=== PATIENT | male | born 1955 | race Caucasian/White ===

== ENCOUNTER 2016-04-25 08:22 | Emergency (ER) | payer OTHER ==
[~2016-04-25] VITALS: Ht 182.9 cm; Wt 120.2 kg
[~2016-04-25 08:22] MED LIST: METH4TAB PO
--- OUTSIDE RECORDS SUMMARY | 2016-04-25 08:31 | XMS REPORT ---
Author VICK Peguero [facility] [place] eClinicalWorks Address Unknown Phone Unavailable Care Team Providers Care Proposal Manager Writer Name Role Phone VICK FRANK CP Unavailable Allergies No Known Allergies Problems Problem Type Condition Code Onset Dates Condition Status Problem Mixed hyperlipidemia E78.2 Active Problem Obstructive sleep apnea (adult) (pediatric) 327.23 Active Problem Arthritis M19.90 Active Medications Medication Code System Code Instructions Start Date End Date Status Dosage Ibuprofen [facility] [id number] 800 MG Orally Three times a day, pc 1 tablet Results No Known Results Summary Purpose eClinicalWorks Submission
[2016-04-25] MEDS ORDERED: IBUP-1780 PO (08:57)
[2016-04-25] MEDS ORDERED: NS IV 1000 ML 1,000 ML IV ONE (09:19)
[2016-04-25 09:25] LABS: BASOPHILS % (AUTO) 0 % (0-10); EOSINOPHILS # (AUTO) 0.1 10^3/uL (0.0-0.3); EOSINOPHILS % (AUTO) 1 % (0-10); LYMPHOCYTES # (AUTO) 0.8 X 10^3 (1.0-4.0); LYMPHOCYTES % (AUTO) 8 % (12-44); MEAN CORPUSCULAR HEMOGLOBIN 30 PG (25-34); MEAN CORPUSCULAR HGB CONC 34 G/DL (32-36); MEAN CORPUSCULAR VOLUME 89 FL (80-99); MEAN PLATELET VOLUME 9.5 FL (7.4-10.4); MONOCYTES # (AUTO) 0.9 X 10^3 (0.0-1.0); MONOCYTES % (AUTO) 8 % (0-12); NEUTROPHILS # (AUTO) 9.2 X 10^3 (1.8-7.8); NEUTROPHILS % (AUTO) 84 % (42-75); PLATELET COUNT 283 10^3/uL (130-400); RED BLOOD COUNT 5.13 10^6/uL (4.35-5.85)
--- NOTE | 2016-04-25 09:27 | Diagnostic Imaging Report ---
INDICATION: Fever, neck pain, fall two days ago. FINDINGS: There is no pneumothorax. No findings of hemothorax. There is no pneumonia. There is no failure. IMPRESSION: No acute appearing abnormality. Dictated by: Dictated on workstation # [id number]
[2016-04-25 09:30] LABS: INR 1.1 (0.8-1.4); PROTHROMBIN TIME PATIENT 13.5 SEC (12.2-14.7)
[2016-04-25] MEDS ORDERED: ONDANSETRON 4 MG/2 ML (SDV) Z0FRAN IVP ONE (09:30)
[2016-04-25] MEDS ORDERED: fentaNYL INJECTION 100 MCG/2 ML AMP IVP ONE ×2 (09:30→10:30)
[2016-04-25 09:38] LABS: ALANINE AMINOTRANSFERASE 25 U/L (0-55); ALBUMIN 4.2 G/DL (3.2-4.5); ANION GAP 11 MMOL/L (5-14); ASPARTATE AMINO TRANSFERASE 18 U/L (5-34); BLOOD UREA NITROGEN 10 MG/DL (7-18); BUN/CREATININE RATIO 11; CALCIUM 9.6 MG/DL (8.5-10.1); CARBON DIOXIDE 24 MMOL/L (21-32); CHLORIDE 101 MMOL/L (98-107); CREATININE SERUM 0.87 MG/DL (0.60-1.30); GFR ESTIMATED > 60; GLUCOSE 121 MG/DL (70-105); POTASSIUM 4.2 MMOL/L (3.6-5.0); SODIUM 136 MMOL/L (135-145); TOTAL PROTEIN 7.4 G/DL (6.4-8.2); hs C REACTIVE PROTEIN 6.18 MG/DL (0.00-0.50)
[2016-04-25] MEDS ORDERED: ACETAMINOPHEN 500 MG TAB (TYLENOL) PO ONE (09:45)
--- NOTE | 2016-04-25 10:20 | Diagnostic Imaging Report ---
INDICATION: Severe headache, dental pain. COMPARISON: There are no prior studies available for comparison. PROCEDURE: CT head and maxillofacial without contrast. TECHNIQUE: Multiple contiguous axial images were obtained through the head and facial bones without the use of intravenous contrast. Sagittal and coronal reconstructed images were also obtained. FINDINGS: CT MAXILLOFACIAL: The orbital rims, nasal bones, zygomatic arches, and mandible are intact. There are multiple dental caries. There is no mass or abscess identified, however. The soft tissues are unremarkable. There is mild mucosal thickening in the ethmoid sinuses and the floor of each maxillary antrum. The sinuses are otherwise clear. The nasal septum is deviated to the right. IMPRESSION: 1. There is no evidence for an acute bony abnormality. 2. There are multiple dental caries. There is no mass or abscess visualized. 3. There is mild bilateral ethmoid and maxillary sinusitis. 4. The results were discussed with Dr. Maldonado in the ER. CT HEAD: There is no mass, shift of the midline, or hemorrhage to suggest an acute intracranial abnormality. The ventricles are not abnormally dilated. There is mild cortical atrophy present. The degree of atrophy is consistent with the patient's age. The bone windows show no evidence for a fracture or for a destructive lesion. The orbits are symmetrical and within normal limits. The sinuses, where visualized, are generally clear. IMPRESSION: There is no evidence for an acute intracranial abnormality. Dictated by: Dictated on workstation # [id number]
[2016-04-25 10:52] LABS: BILIRUBIN,URINE NEGATIVE (NEGATIVE); KETONES,URINE 1+ (NEGATIVE); LEUKOCYTE ESTERASE ,URINE NEGATIVE (NEGATIVE); NITRITE,URINE NEGATIVE (NEGATIVE); PH,URINE 6 (5-9); PROTEIN,URINE NEGATIVE (NEGATIVE); UROBILINOGEN,URINE NORMAL (NORMAL)
--- NOTE | 2016-04-25 11:30 | ED General ---
General Chief Complaint: Head/Cervical Problems Stated Complaint: DENTAL/FACIAL PAIN HEADACHE FEVER Nursing Triage Note: AMBULATED TO ROOM 06 WITH COMPLAINTS OF HEADACHE, HIGH FEVER, AND NECK PAIN OFF AND ON FOR TWO DAYS. REPORTS HIGHEST FEVER OF 106. MASK IMMEDIATLEY APPLIED TO PT. PT FELL TWO DAYS AGO. UNKNOWN IF HE HIT HIS HEAD. DENIES LOC. COMPLAINS OF RIGHT SHOULDER PAIN DUE TO THE FALL. Nursing Sepsis Screen: No Definite Risk Source of Information: Patient Exam Limitations: No Limitations History of Present Illness Time Seen by Provider: 09:00 Initial Comments This 60-year-old gentleman presents to the emergency room with acute illness that includes fever, intense headache and left-sided facial pain, temperature reportedly up to 106 at home, nausea and urinary frequency. He reports having difficulty eating and drinking due to his illness. Temperature here is up to 100.7. Patient has significant dental decay with gingival irritation that he believes may be a source of his illness. He had some unrelated falls recently with exacerbation of chronic right knee and shoulder pain. Allergies and Home Medications Allergies Coded Allergies: clindamycin (Verified Allergy, Unknown, 04/25/16) Uncoded Allergies: CEYANE PEPPER (Allergy, Unknown, 04/25/16) ENDOMETHICIN (Allergy, Unknown, 04/25/16) Home Medications Ibuprofen 800 Mg Tablet 800 MG PO Q8H PRN PRN PAIN (Reported) Constitutional: see HPI EENTM: see HPI Respiratory: no symptoms reported Cardiovascular: no symptoms reported Gastrointestinal: see HPI Genitourinary: see HPI Musculoskeletal: no symptoms reported Skin: no symptoms reported Psychiatric/Neurological: See HPI Hematologic/Lymphatic: No Symptoms Reported Past Aorqcfz-Thfokt-Vaukci Hx Patient Social History Recent Foreign Travel: No Contact w/Someone Who Travel: No Recent Infectious Disease Expo: No Recent Hopitalizations: No Surgeries HX Surgeries: Yes Surgeries: Bladder Surgery Respiratory Hx Respiratory Disorders: Yes Respiratory Disorders: Pneumonia, Sleep Apnea Cardiovascular Hx Cardiac Disorders: No Neurological Hx Neurological Disorders: No Reproductive System Hx Reproductive Disorders: No Sexually Transmitted Disease: No Genitourinary Hx Genitourinary Disorders: Yes (adm.problem) Gastrointestinal Hx Gastrointestinal Disorders: No Musculoskeletal Hx Musculoskeletal Disorders: Yes Musculoskeletal Disorders: Arthritis Endocrine Hx Endocrine Disorders: No HEENT HX ENT Disorders: No Cancer Hx Cancer: Yes Cancer: Bladder Psychosocial Hx Psychiatric Problems: No Blood Transfusions Hx Blood Disorders: No Physical Exam-Suspected Sepsis Physical Exam Vital Signs Vital Sign - Last 12Hours 04/25/16 04/25/16 08:50 09:39 Temp 100.0 Pulse 91 Resp 18 B/P 155/84 Pulse Ox 91 O2 Delivery Nasal Cannula O2 Flow Rate 2 Capillary Refill : Less Than 3 Seconds Blood Pressure Mean: 107 General Appearance: WD/WN Mild Distress Obese HEENT: PERRL/EOMI TMs Normal Normal ENT Inspection Pharynx Normal Other ( gingival inflammation on the left upper gums without overt abscess) Neck: Full Range of Motion Normal Inspection Other (no nuchal rigidity) Respiratory: Lungs Clear Normal Breath Sounds No Accessory Muscle Use No Respiratory Distress Cardiovascular: Regular Rate, Rhythm No Edema No Murmur Normal Peripheral Pulses Gastrointestinal: Normal Bowel Sounds Non Tender Soft Extremity: Normal Capillary Refill Normal Inspection Neurologic/Psychiatric: Alert Oriented x3 No Motor/Sensory Deficits Normal Mood/Affect automatic lathe setter II-XII Norm as Tested Skin: normal color warm/dry Progress/Results/Core Measures Suspected Sepsis Recent Fever Within 48 Hours: Yes Infection Criteria Present: None New/Unexplained Altered Menta: No Sepsis Screen: No Definite Risk Sepsis Diagnosis: SIRS Temperature:100.7 Pulse: 91 Respiratory Rate: 18 Laboratory Tests 04/25/16 09:00: White Blood Count 11.0 Blood Pressure 155 /84 Mean: 107 Laboratory Tests 04/25/16 09:00: Creatinine 0.87, INR Comment 1.1, Platelet Count 283, Total Bilirubin 1.0 Results/Orders Lab Results Laboratory Tests Test 04/25/16 09:00 04/25/16 10:40 Range/Units Activated Partial Thromboplast Time 30 24-35 SEC Alanine Aminotransferase (ALT/SGPT) 25 0-55 U/L Albumin 4.2 3.2-4.5 G/DL Alkaline Phosphatase 84 40-136 U/L Anion Gap 11 5-14 MMOL/L Aspartate Amino Transf (AST/SGOT) 18 5-34 U/L BUN/Creatinine Ratio 11 Basophils # (Auto) 0.0 0.0-0.1 10^3/uL Basophils (%) (Auto) 0 0-10 % Blood Urea Nitrogen 10 7-18 MG/DL C-Reactive Protein High Sensitivity 6.18 H 0.00-0.50 MG/DL Calcium Level 9.6 8.5-10.1 MG/DL Carbon Dioxide Level 24 21-32 MMOL/L Chloride Level 101 98-107 MMOL/L Creatinine 0.87 0.60-1.30 MG/DL Eosinophils # (Auto) 0.1 0.0-0.3 10^3/uL Eosinophils (%) (Auto) 1 0-10 % Estimat Glomerular Filtration Rate > 60 Glucose Level 121 H 70-105 MG/DL Hematocrit 46 40-54 % Hemoglobin 15.4 13.3-17.7 G/DL INR Comment 1.1 0.8-1.4 Lactic Acid Level 0.76 0.50-2.00 MMOL/L Lymphocytes # (Auto) 0.8 L 1.0-4.0 X 10^3 Lymphocytes (%) (Auto) 8 L 12-44 % Mean Corpuscular Hemoglobin 30 25-34 PG Mean Corpuscular Hemoglobin Concent 34 32-36 G/DL Mean Corpuscular Volume 89 80-99 FL Mean Platelet Volume 9.5 7.4-10.4 FL Monocytes # (Auto) 0.9 0.0-1.0 X 10^3 Monocytes (%) (Auto) 8 0-12 % Neutrophils # (Auto) 9.2 H 1.8-7.8 X 10^3 Neutrophils (%) (Auto) 84 H 42-75 % Platelet Count 283 130-400 10^3/uL Potassium Level 4.2 3.6-5.0 MMOL/L Prothrombin Time 13.5 12.2-14.7 SEC Red Blood Count 5.13 4.35-5.85 10^6/uL Red Cell Distribution Width 13.0 10.0-14.5 % Sodium Level 136 135-145 MMOL/L Total Bilirubin 1.0 0.1-1.0 MG/DL Total Protein 7.4 6.4-8.2 G/DL White Blood Count 11.0 4.3-11.0 10^3/uL Urine Bacteria NEGATIVE /HPF Urine Bilirubin NEGATIVE NEGATIVE Urine Casts NONE /LPF Urine Clarity CLEAR Urine Color YELLOW Urine Crystals NONE /LPF Urine Culture Indicated NO Urine Glucose (UA) NEGATIVE NEGATIVE Urine Ketones 1+ H NEGATIVE Urine Leukocyte Esterase NEGATIVE NEGATIVE Urine Mucus SMALL H /LPF Urine Nitrite NEGATIVE NEGATIVE Urine Protein NEGATIVE NEGATIVE Urine RBC 2-5 H /HPF Urine RBC (Auto) 2+ H NEGATIVE Urine Specific [place] 1.015 L 1.016-1.022 Urine Squamous Epithelial Cells NONE /HPF Urine Urobilinogen NORMAL NORMAL MG/DL Urine WBC NONE /HPF Urine pH 6 5-9 Micro Results Microbiology 04/25/16 Blood Culture - Preliminary, Resulted No growth 04/25/16 Blood Culture - Preliminary, Resulted Positive; See Report 04/25/16 Influenza Types A,B Antigen (LAYA) - Final, Complete My Orders Orders-CONNIE MALDONADO MD Cbc With Automated Diff (04/25/16 09:00) Comprehensive Metabolic Panel (04/25/16:00) Lactic Acid Analyzer (04/25/16 09:00) Blood Culture (04/25/16:00) Ua Culture If Indicated (04/25/16:00) Protime With Inr (04/25/16:00) Partial Thromboplastin Time (04/25/16:00) Chest 1 View, Ap/Pa Only (04/25/16:00) O2 (04/25/16 09:00) Saline Lock/Iv-Start (04/25/16 09:00) Saline Lock/Iv-Start (04/25/16 09:00) Vital Signs Adult Sepsis Patie Q1HR (04/25/16 09:00) Remove Rings In Anticipation O (04/25/16 09:00) Influenza A And B Antigens (04/25/16 09:00) Hs C Reactive Protein (04/25/16 09:02) Ct Head/Maxillofacial Wo (04/25/16 09:16) Fentanyl Injection (Sublimaze Injection (04/25/16 09:30) Ondansetron Injection (Zofran Injectio (04/25/16 09:30) Ns Iv 1000 Ml (Sodium Chloride 0.9%) (04/25/16 09:19) Acetaminophen Tablet (Tylenol Tablet) (04/25/16 09:45) Fentanyl Injection (Sublimaze Injection (04/25/16 10:30) Ketorolac Injection (Toradol Injection) (04/25/16 12:15) Medications Given in ED Vital Signs/I&O Capillary Refill : Less Than 3 Seconds Blood Pressure Mean: 107 Progress Note #1: Time: 11:25 Progress Note Septic workup was pursued on this patient. No source of infection was found. He has a borderline leukocytosis of 11,000 with a neutrophil predominance. CRP is also elevated. However, there is no obvious source of infection on workup. Suspicion for meningitis is very low but cannot be ruled out at this time, especially since he has intense headache separate from his facial pain where he has dental caries. CT scan of the head and face was unremarkable except for the dental caries. Risks and benefits of lumbar puncture were offered to patient. He is discussing with family at this time. Patient required 125 g of fentanyl to get comfortable. He has no true nuchal rigidity. Progress Note #2: Time: 11:56 Progress Note Patient declined the lumbar puncture. I discussed the case with Dr. Gregory who is admitting for [facility] this week. She did not feel admission was appropriate, especially without any evidence of diagnosis requiring admission given his present workup. I also discussed the case with Dr. Frank who would like to see the patient in the office tomorrow morning as 09:00. We discussed the use of antibiotics. Dr. Frank specifically requests that I NOT give antibiotics so as to not cloud the picture. Progress Note #3: Time: 12:08 Progress Note Patient is still relatively comfortable at this time. Patient's options were discussed including pursuing LP now versus following up with Dr. Frank at [facility] at 09:00 tomorrow morning. Patient elects the latter. Toradol was given prior to dismissal. Diagnostic Imaging Diagonstic Imaging: CT Plain Films/CT/US/NM/MRI: facial bones, head Comments CT head and facial bones reviewed by me and report reviewed. See report below: NAME: KEATON [facility] REC#: [id number] PT STATUS: REG ER : 1955 PHYSICIAN: CONNIE MALDONADO MD ADMIT DATE: 04/25/16/ER Draft Date of Exam:04/25/16 CT HEAD/MAXILLOFACIAL WO INDICATION: Severe headache, dental pain. COMPARISON: There are no prior studies available for comparison. PROCEDURE: CT head and maxillofacial without contrast. TECHNIQUE: Multiple contiguous axial images were obtained through the head and facial bones without the use of intravenous contrast. Sagittal and coronal reconstructed images were also obtained. FINDINGS: CT MAXILLOFACIAL: The orbital rims, nasal bones, zygomatic arches, and mandible are intact. There are multiple dental caries. There is no mass or abscess identified, however. The soft tissues are unremarkable. There is mild mucosal thickening in the ethmoid sinuses and the floor of each maxillary antrum. The sinuses are otherwise clear. The nasal septum is deviated to the right. IMPRESSION: 1. There is no evidence for an acute bony abnormality. 2. There are multiple dental caries. There is no mass or abscess visualized. 3. There is mild bilateral ethmoid and maxillary sinusitis. 4. The results were discussed with Dr. Maldonado in the ER. CT HEAD: There is no mass, shift of the midline, or hemorrhage to suggest an acute intracranial abnormality. The ventricles are not abnormally dilated. There is mild cortical atrophy present. The degree of atrophy is consistent with the patient's age. The bone windows show no evidence for a fracture or for a destructive lesion. The orbits are symmetrical and within normal limits. The sinuses, where visualized, are generally clear. IMPRESSION: There is no evidence for an acute intracranial abnormality. Dictated on workstation # [id number] Dict: 04/25/16 1004 Trans: 04/25/16 1019 [id number] Interpreted by: SHAMA BAH MD Diagonstic Imaging: Xray Plain Films/CT/US/NM/MRI: chest Comments Chest x-ray viewed by me and report reviewed. No acute abnormalities. Departure Impression Impression: Primary Impression: Headache Qualified Code: R51 - Headache Additional Impressions: Febrile illness Gingivitis Dental caries Disposition: 01 HOME, SELF-CARE Condition: Improved Departure-Patient Inst. Decision time for Depature: 12:10 Referrals: [facility] (PCP/Family) Primary Care Physician Patient Instructions: Headache, Adult (DC) Add. Discharge Instructions: Follow-up with Dr. Frank at 9 o'clock tomorrow morning. You may take ibuprofen up to 800 mg every 8 hours as needed for pain. Add Tylenol (acetaminophen) up to 1000 mg every 6 hours as needed for additional pain relief. Return to the emergency room immediately if you have worsening symptoms, especially if you have neurologic symptoms such as confusion, seizure, difficulty walking, changes in vision, etc. All discharge instructions reviewed with patient and/or family. Voiced understanding. Copy Copies To 1: VICK FRANK MD, JOSHUA T MD Apr 25, 2016 11:30 Dict: 04/25/16 1004 Trans: 04/25/16 1019 [id number] Interpreted by: SHAMA BAH MD Diagonstic Imaging: Xray Plain Films/CT/US/NM/MRI: chest Comments Chest x-ray viewed by me and report reviewed. No acute abnormalities. Departure Impression Impression: Primary Impression: Headache Qualified Code: R51 - Headache Additional Impressions: Febrile illness Gingivitis Dental caries Disposition: HOME, SELF-CARE Condition: Improved Departure-Patient Inst. Decision time for Depature: 12:10 Referrals: [facility] (PCP/Family) Primary Care Physician Patient Instructions: Headache, Adult (DC) Add. Discharge Instructions: Follow-up with Dr. Frank at 9 o'clock tomorrow morning. You may take ibuprofen up to 800 mg every 8 hours as needed for pain. Add Tylenol (acetaminophen) up to 1000 mg every 6 hours as needed for additional pain relief. Return to the emergency room immediately if you have worsening symptoms, especially if you have neurologic symptoms such as confusion, seizure, difficulty walking, changes in vision, etc. All discharge instructions reviewed with patient and/or family. Voiced understanding. Copy Copies To 1: VICK FRANK MD, JOSHUA T MD Apr 25, 2016 11:30
[2016-04-25] MEDS ORDERED: KETOROLAC 30 MG/ML VIAL IVP ONE (12:15)
[2016-04-25 12:20] VITALS: BP 124/75
== END 2016-04-25 12:20 | disposition home or self-care (01) ==
LOC: EDUNIT# 08:22 → ER 08:27
DX: R51 Headache (principal); R50.9 Fever, unspecified; K05.10 Chronic gingivitis, plaque induced; K02.9 Dental caries, unspecified
CPT/HCPCS: 36415; 70450; 70486; 71010; 80053; 81000; 83605; 85025; 85610; 85730; 86141; 87040; 87804; 96361; 96374; 96375; 96376

== ENCOUNTER → 2016-12-13 | Outpatient (CLI) | payer OTHER ==
[~2016-12-13] MED LIST changes: +IBUP-1780 PO
--- NOTE | 2016-12-13 17:40 | Diagnostic Imaging Report ---
PROCEDURE: MRI left joint lower extremity without contrast. TECHNIQUE: Multiplanar, multisequence non contrast-enhanced MRI of the left lower extremity was accomplished. INDICATION: Left knee pain. FINDINGS: There is a small suprapatellar effusion. There is no Weeks's cyst. There is bone marrow edema in subchondral location along the medial femoral condyle and medial tibial plateau. This appears to be related to degenerative changes with marked thinning of the cartilage in the medial compartment noted particularly along the medial aspect. There is also mild marrow edema along the tibial spine. The cartilage in the lateral compartment is relatively preserved and the cartilage in the patellofemoral compartment demonstrates mild fissuring in the lateral facet of the patella without significant thinning. The extensor mechanism appears intact. The ACL and the PCL are intact. The medial meniscus demonstrates complex tear involving the body and the posterior horn with extrusion of the body of the meniscus and suggestion of a torn portion of the extruded body of the meniscus displaced slightly superiorly above the medial margin of the undersurface of the medial femoral condyle. The lateral meniscus demonstrates increased signal along the posterior root which may relate to a nondisplaced tear or degeneration. The MCL and the lateral collateral ligament complex appear intact. The anterior subcutaneous tissues demonstrates mild edema at the level of the superficial infrapatellar bursa. The muscles around the knee appear unremarkable. IMPRESSION: 1. Complex tears involving the body and posterior horn of the medial meniscus. The body of the medial meniscus is extruded with slight superior displacement of torn meniscus material seen. 2. Mild increased signal in the posterior root of the lateral meniscus suggestive of degeneration or nondisplaced focal tear. 3. Severe cartilage thinning in the medial compartment. Dictated by: Dictated on workstation # [id number]
--- NOTE | 2016-12-13 17:45 | Diagnostic Imaging Report ---
PROCEDURE: MRI right joint upper extremity without contrast. TECHNIQUE: Multiplanar, multisequence non contrast-enhanced MRI of the right upper extremity was accomplished. INDICATION: Right shoulder pain. Fall. FINDINGS: There is no os acromiale or Hill-Sachs deformity. There is a laterally downsloping configuration of the acromion. Increased signal in the rotator cuff tendons is suggestive of tendinosis with a bursal side partial tear seen in the supraspinatus. No retracted full-thickness tear. The subscapularis demonstrates evidence of an intrasubstance tear with medial subluxation of the long head of biceps tendon which demonstrates increased signal compatible with tendinosis or intrasubstance tear. The labrum superior aspect demonstrates increased signal suggestive of degeneration or focal tear. There is thinning of the cartilage and fissuring with minimal osteophytes at the glenohumeral joint suggestive of osteoarthritis. The bone marrow demonstrates mild edema in subchondral location around the acromioclavicular joint. The acromioclavicular joint demonstrates no significant inferior osteophytes. The muscle bulk around the shoulder is normal. IMPRESSION: 1. High-grade partial tear involving the supraspinatus tendon. 2. There is intrasubstance tears in the subscapularis tendon with medial subluxation of the long head biceps tendon. 3. Increased signal in the superior segment of the labrum compatible with degeneration or tear. Dictated by: Dictated on workstation # [id number]
== END ==
LOC: RAD 14:53
PROVIDERS: ATTEND Nurse Practitioner
DX: S46.011D Strain of muscle(s) and tendon(s) of the rotator cuff of right shoulder, subsequent encounter (principal); S83.241D Other tear of medial meniscus, current injury, right knee, subsequent encounter; M94.8X6 Other specified disorders of cartilage, lower leg; X58.XXXD Exposure to other specified factors, subsequent encounter; Y99.8 Other external cause status
CPT/HCPCS: 73221; 73721

== ENCOUNTER 2017-02-22 01:06 | Inpatient (IN) | payer SELFPAY ==
[~2017-02-22] VITALS: Ht 182.9 cm; Wt 126.1 kg
[2017-02-22] VITALS (34 sets, daily range): BP systolic 83–130; BP diastolic 47–99
--- OUTSIDE RECORDS SUMMARY | 2017-02-22 01:12 | XMS REPORT ---
Author Author NIKHIL TAN eClinicalWorks Address Unknown Phone Unavailable Care Team Providers Care Die Attacher Name Role Phone NIKHIL TAN Unavailable Allergies, Adverse Reactions, Alerts Substance Reaction Event Type Indomethacin Info Not Available Drug Allergy Clindamycin HCl Info Not Available Drug Allergy [place] Pepper Tongue Swelling Drug Allergy Problems Problem Type Condition Code Onset Dates Condition Status Problem Routine general medical examination at health care facility V70.0 Active Problem Unspecified arthropathy, site unspecified 716.90 Active Problem Unspecified disorder of the teeth and supporting structures 525.9 Active Problem Lumbago 724.2 Active Problem Pain in joint, site unspecified 719.40 Active Problem Cough 786.2 Active Problem Rash and other nonspecific skin eruption 782.1 Active Problem Pain in joint, lower leg 719.46 Active Problem Contact dermatitis and other eczema due to solvents 692.2 Active Problem Corns and callosities 700 Active Problem Thyrotoxicosis without mention of goiter or other cause, without mention of thyrotoxic crisis or storm 242.90 Active Problem Other and unspecified derangement of medial meniscus 717.3 Active Assessment Dental examination Z01.20 Active Problem Flatulence, eructation, and gas pain 787.3 Active Assessment Encounter for dental examination Z01.20 Active Problem Obstructive sleep apnea (adult) (pediatric) 327.23 Active Medications Medication Code System Code Instructions Start Date End Date Status Dosage Naproxen [facility] [address]-77 500 mg September 19, 2013 take 1 tablet ( 500 mg) by oral route 2 times per day with food [place] [facility] [address]-80 5-325 MG Orally every 6 hrs 1 tablet as needed Tramadol HCl [facility] [address]-16 50 MG Orally every 6 hrs 1 tablet as needed Triamcinolone Acetonide [facility] [address]-75 0.1 % Oct 07, 2013 apply a thin layer to the affected area(s) by Topical route 3 times per day dispense 60 gram tube Amoxicillin [facility] [address]-52 500 MG Orally Three times a day 1 capsule Urea [facility] [address]-49 20 % August 20, 2013 1 tomasa by Topical route 1 time per day Penicillin V Potassium [facility] [address]-20 500 mg September 07, 2011 take 1 tablet by Oral route 3 times per day for 10 daysvoucher Procedures Procedure Coding System Code Date INTRAORL-PERIAPICAL 1 FILM 15223 CPT-4 D0220 Feb 03, 2015 LTD ORAL EVALUATION - PROBLEM FOCUS CPT-4 D0140 Feb 03, 2015 Vital Signs Date/Time: Feb 03, 2015 Blood Pressure Diastolic 71 mmHg Blood Pressure Systolic 121 mmHg Results No Known Results Summary Purpose eClinicalWorks Submission
--- OUTSIDE RECORDS SUMMARY | 2017-02-22 01:12 | XMS REPORT ---
Author Author VICK FRANK [facility] [address] Address [address] [place] [address] Care Team Providers Care Switchboard Operator Assistant Name Role Phone VICK FRANK Unavailable PROBLEMS Type Condition ICD9-CM Code [id number] Code Onset Dates Condition Status SNOMED Code Problem Poor vision H54.7 Active 006920164 Problem Mixed hyperlipidemia E78.2 Active 923535587 Problem Arthritis M19.90 Active 8613390 Problem Obstructive sleep apnea (adult) (pediatric) 327.23 Active 78531155 ALLERGIES Substance Reaction Event Type Date Status Indomethacin Unknown Drug Allergy Apr, Active Clindamycin HCl Unknown Drug Allergy Apr, Active Cayenne Pepper Tongue Swelling Drug Allergy Apr, Active SOCIAL HISTORY Never Assessed PLAN OF CARE Activity Details Follow Up prn Reason: VITAL SIGNS Height 74 in 2016-04-26 Weight 276 lbs 2016-04-26 Temperature 98.1 degrees Fahrenheit 2016-04-26 Heart Rate 88 bpm 2016-04-26 Respiratory Rate 18 2016-04-26 BMI 35.43 kg/m2 2016-04-26 Blood pressure systolic 120 mmHg 2016-04-26 Blood pressure diastolic 70 mmHg 2016-04-26 MEDICATIONS Medication Instructions Dosage Frequency Start Date End Date Duration Status Triamcinolone Acetonide 0.1 % Externally Twice a day 1 application to affected area 12h Active Amoxicillin 500 mg Orally 3 times a day 1 capsule 8h Apr, Apr, 07 days Active Hydrocodone-Acetaminophen 7.5-325 MG Orally every 6 hrs 1 tablet as needed 6h Apr, Active Urea 20 % 1 tomasa by Topical route 1 time per day Aug, Active Albuterol Sulfate 90 mcg/actuation Inhalation every 4 hrs, PRN 2 puff May, Active Ibuprofen 800 MG Orally Three times a day, pc 1 tablet 20 Active RESULTS No Results PROCEDURES No Known procedures IMMUNIZATIONS No Known Immunizations MEDICAL (GENERAL) HISTORY Type Description Date Medical History heart murmur Medical History cancer-bladder Medical History asthma Medical History bronchitis Surgical History Cancer was removed from bladder 2009 Hospitalization History Pneumonia 1961
--- OUTSIDE RECORDS SUMMARY | 2017-02-22 01:12 | XMS REPORT ---
Author CARROL [facility] eClinicalWorks Address Unknown Phone Unavailable Care Team Providers Care Nutrition Aide Name Role Phone CARROL ANDRADE CP Unavailable Allergies No Known Allergies Problems Problem Type Condition Code Onset Dates Condition Status Problem Mixed hyperlipidemia E78.2 Active Problem Obstructive sleep apnea (adult) (pediatric) 327.23 Active Problem Arthritis M19.90 Active Assessment Impingement syndrome of right shoulder M75.41 Active Medications No Known Medications Procedures Procedure Coding System Code Date Office Visit, Est Pt., Level 3 CPT-4 49167 September 10, 2015 DEPO MEDROL 80 MG/ML CPT-4 J1040 September 10, 2015 DRAIN/INJECT, JOINT/BURSA CPT-4 02583 September 10, 2015 Vital Signs Date/Time: September 10, 2015 Blood Pressure Diastolic 72 mmHg Blood Pressure Systolic 112 mmHg Height 74 in Results No Known Results Summary Purpose eClinicalWorks Submission
--- OUTSIDE RECORDS SUMMARY | 2017-02-22 01:12 | XMS REPORT ---
Author JAKE Haider Organization e[employer] Address Unknown Phone Unavailable Care Team Providers Care Auto Machinist Name Role Phone JAKE GLEZ CP Unavailable Allergies, Adverse Reactions, Alerts Substance Reaction Event Type Indomethacin Info Not Available Drug Allergy Clindamycin HCl Info Not Available Drug Allergy Cayenne Pepper Tongue Swelling Drug Allergy Problems Problem Type Condition Code Onset Dates Condition Status Problem Mixed hyperlipidemia E78.2 Active Problem Obstructive sleep apnea (adult) (pediatric) 327.23 Active Problem Arthritis M19.90 Active Assessment Oral candidiasis B37.0 Active Medications Medication Code System Code Instructions Start Date End Date Status Dosage Urea [facility] [address]-58 20 % August 20, 2013 1 tomasa by Topical route 1 time per day Ibuprofen [facility] [address]-06 800 MG Orally Three times a day, pc May 11, 2015 1 tablet Nystatin [facility] [address]-11 603342 UNIT/ML Mouth/Throat 4 times a day September 01, 2015 September 08, 2015 5 mL swish around mouth and retain for as long as possible before swallowing as directed Hydrocodone-Acetaminophen [facility] [address]-49 7.5-325 MG Orally every 6 hrs May 11, 2015 1 tablet as needed Triamcinolone Acetonide [facility] [address]-22 0.1 % Externally Twice a day 1 application to affected area Potassium [facility] [address]-41 99 MG Orally Once a day 1 tablet Albuterol ND 0 not defined Procedures Procedure Coding System Code Date SOLUMEDROL (UP TO 125 MG) CPT-4 J2930 September 01, 2015 THER/PROPH/DIAG INJ, SC/IM CPT-4 79430 September 01, 2015 Office Visit, Est Pt., Level 3 CPT-4 35972 September 01, 2015 Vital Signs Date/Time: September 01, 2015 Cardiac Monitoring Heart Rate 78 bpm Weight 275.2 lbs Height 74 in Blood Pressure Diastolic 74 mmHg Blood Pressure Systolic 122 mmHg Results No Known Results Summary Purpose eClinicalWorks Submission
--- OUTSIDE RECORDS SUMMARY | 2017-02-22 01:12 | XMS REPORT ---
Author Author NIKHIL TAN [facility] Address Unknown Care Team Providers Care Plumbing Service Technician Name Role Phone NIKHIL TAN Unavailable PROBLEMS Type Condition ICD9-CM Code NET77-RI Code Onset Dates Condition Status SNOMED Code Problem Incomplete tear of right rotator cuff M75.111 Active 9135704 Problem Poor vision H54.7 Active 213729222 Problem Obstructive sleep apnea (adult) (pediatric) 327.23 Active 63071032 Problem Mixed hyperlipidemia E78.2 Active 430878835 Problem Arthritis M19.90 Active 8686130 ALLERGIES Substance Reaction Event Type Date Status Indomethacin Unknown Drug Allergy June, Active Clindamycin HCl Unknown Drug Allergy June, Active Cayenne Pepper Tongue Swelling Drug Allergy June, Active SOCIAL HISTORY Never Assessed PLAN OF CARE Activity Details Follow Up prn Reason:PROPHY VITAL SIGNS MEDICATIONS Medication Instructions Dosage Frequency Start Date End Date Duration Status Zithromax 250 MG Orally Once a day 2 tablets on the first day, then 1 tablet daily for 4 days 24h 5 day(s) Active Albuterol Sulfate 90 mcg/actuation Inhalation every 4 hrs, PRN 2 puff May, Active Ibuprofen 800 MG Orally Three times a day, pc 1 tablet 20 Active Triamcinolone Acetonide 0.1 % Externally Twice a day 1 application to affected area 12h Active Urea 20 % 1 tomasa by Topical route 1 time per day Aug, Active RESULTS No Results PROCEDURES Procedure Date Ordered Result Body Site Dental no charge June 30, 2016 IMMUNIZATIONS No Known Immunizations MEDICAL (GENERAL) HISTORY Type Description Date Medical History heart murmur Medical History cancer-bladder Medical History asthma Medical History bronchitis Surgical History Cancer was removed from bladder 2009 Hospitalization History Pneumonia 1961
--- OUTSIDE RECORDS SUMMARY | 2017-02-22 01:12 | XMS REPORT ---
Author Author VICK FRANK [facility] Address [address] [place] [address] Care Team Providers Care Sales Solutions Associate Name Role Phone VICK FRANK Unavailable PROBLEMS Type Condition ICD9-CM Code HFJ39-BP Code Onset Dates Condition Status SNOMED Code Problem Poor vision H54.7 Active 509562832 Problem Mixed hyperlipidemia E78.2 Active 813605912 Problem Arthritis M19.90 Active 1300478 Problem Obstructive sleep apnea (adult) (pediatric) 327.23 Active 01373525 ALLERGIES No Information SOCIAL HISTORY Never Assessed PLAN OF CARE VITAL SIGNS MEDICATIONS Unknown Medications RESULTS No Results PROCEDURES No Known procedures IMMUNIZATIONS No Known Immunizations MEDICAL (GENERAL) HISTORY Type Description Date Medical History heart murmur Medical History cancer-bladder Medical History asthma Medical History bronchitis Surgical History Cancer was removed from bladder 2009 Hospitalization History Pneumonia 1961
--- OUTSIDE RECORDS SUMMARY | 2017-02-22 01:12 | XMS REPORT ---
Author Author CARROL ANDRADE [facility] Address [address] [place] [address] Care Team Providers Care Service Administrator Name Role Phone CARROL ANDRADE Unavailable PROBLEMS Type Condition ICD9-CM Code TYF50-CG Code Onset Dates Condition Status SNOMED Code Problem Arthritis M19.90 Active 6774616 Problem Mixed hyperlipidemia E78.2 Active 704866863 Problem Obstructive sleep apnea (adult) (pediatric) 327.23 Active 37290999 Assessment Impingement syndrome of right shoulder M75.41 Oct, Active 698123138 ALLERGIES Unknown Allergies SOCIAL HISTORY No smoking Hx information available PLAN OF CARE VITAL SIGNS Height 74 in 2015-11-12 Blood pressure systolic 128 mmHg 2015-11-12 Blood pressure diastolic 78 mmHg 2015-11-12 MEDICATIONS Unknown Medications RESULTS No Results PROCEDURES Procedure Date Ordered Related Diagnosis Body Site DRAIN/INJECT, JOINT/BURSA Nov 12, 2015 Office Visit, Est Pt., Level 3 Nov 12, 2015 DEPO MEDROL 80 MG/ML Nov 12, 2015 IMMUNIZATIONS No Known Immunizations
--- OUTSIDE RECORDS SUMMARY | 2017-02-22 01:12 | XMS REPORT ---
Author Author VICK FRANK [facility] Address [address] [place] [address] Care Team Providers Care Commercial Underwriter Name Role Phone VICK FRANK Unavailable PROBLEMS Type Condition ICD9-CM Code GSN36-LR Code Onset Dates Condition Status SNOMED Code Problem Incomplete tear of right rotator cuff M75.111 Active 1572002 Problem Poor vision H54.7 Active 249280367 Problem Obstructive sleep apnea (adult) (pediatric) 327.23 Active 58698809 Problem Mixed hyperlipidemia E78.2 Active 685821652 Problem Arthritis M19.90 Active 9100579 ALLERGIES No Information SOCIAL HISTORY Never Assessed [...]
--- OUTSIDE RECORDS SUMMARY | 2017-02-22 01:12 | XMS REPORT ---
Author Author VICK FRANK [facility] Address [address] [place] [address] Care Team Providers Care E Learning Coordinator Name Role Phone VICK FRANK Unavailable PROBLEMS Type Condition ICD9-CM Code NCE25-WA Code Onset Dates Condition Status SNOMED Code Problem Poor vision H54.7 Active 580485576 Problem Mixed hyperlipidemia E78.2 Active 818529180 Problem Arthritis M19.90 Active 5313348 Problem Obstructive sleep apnea (adult) (pediatric) 327.23 Active 61909022 ALLERGIES No Information SOCIAL HISTORY Never Assessed [...]
--- OUTSIDE RECORDS SUMMARY | 2017-02-22 01:12 | XMS REPORT ---
Author Author VICK FRANK [facility] Address [address] [place] [address] Care Team Providers Care Business Support Specialist Name Role Phone VICK FRANK Unavailable PROBLEMS Type Condition ICD9-CM Code ZHU71-NL Code Onset Dates Condition Status SNOMED Code Problem Arthritis M19.90 Active 2022890 Problem Mixed hyperlipidemia E78.2 Active 108662780 Problem Obstructive sleep apnea (adult) (pediatric) 327.23 Active 38196463 ALLERGIES Unknown Allergies SOCIAL HISTORY No smoking Hx information available PLAN OF CARE VITAL SIGNS MEDICATIONS Medication Instructions Dosage Frequency Start Date End Date Duration Status Ibuprofen 800 MG Orally Three times a day, pc 1 tablet 20 Active RESULTS No Results PROCEDURES No Known procedures IMMUNIZATIONS No Known Immunizations
--- OUTSIDE RECORDS SUMMARY | 2017-02-22 01:12 | XMS REPORT ---
Author VICK Peguero [facility] eClinicalWorks Address Unknown Phone Unavailable Care Team Providers Care Paste Mixing Supervisor Name Role Phone VICK FRANK CP Unavailable Allergies No Known Allergies Problems Problem Type Condition Code Onset Dates Condition Status Problem Mixed hyperlipidemia E78.2 Active Problem Obstructive sleep apnea (adult) (pediatric) 327.23 Active Problem Arthritis M19.90 Active Medications Medication Code System Code Instructions Start Date End Date Status Dosage Ibuprofen [facility] [id number] 800 MG Orally Three times a day, pc 1 tablet Results No Known Results Summary Purpose eClinicalWorks Submission
--- OUTSIDE RECORDS SUMMARY | 2017-02-22 01:12 | XMS REPORT ---
Author Author VICK FRANK [facility] Address [address] [place] [address] Care Team Providers Care Supply And Distribution Manager Name Role Phone VICK FRANK Unavailable PROBLEMS Type Condition ICD9-CM Code UQL47-QY Code Onset Dates Condition Status SNOMED Code Problem Incomplete tear of right rotator cuff M75.111 Active 1776330 Problem Poor vision H54.7 Active 394730425 Problem Obstructive sleep apnea (adult) (pediatric) 327.23 Active 35920500 Problem Mixed hyperlipidemia E78.2 Active 444140442 Problem Arthritis M19.90 Active 4545469 ALLERGIES No Information SOCIAL HISTORY Never Assessed PLAN OF CARE VITAL SIGNS MEDICATIONS Medication Instructions Dosage Frequency Start Date End Date Duration Status Triamcinolone Acetonide 0.1 % Externally Twice a day 1 application to affected area 12h 0 days Active RESULTS No Results PROCEDURES No Known procedures IMMUNIZATIONS No Known Immunizations MEDICAL (GENERAL) HISTORY Type Description Date Medical History heart murmur Medical History cancer-bladder Medical History asthma Medical History bronchitis Surgical History Cancer was removed from bladder 2009 Hospitalization History Pneumonia 1961
--- OUTSIDE RECORDS SUMMARY | 2017-02-22 01:12 | XMS REPORT ---
Author Author CARROL ANDRADE [facility] Address [address] [place] [address] Care Team Providers Care Ship Pilot Dispatcher Name Role Phone CARROL ANDRADE Unavailable PROBLEMS Type Condition ICD9-CM Code MDB04-TG Code Onset Dates Condition Status SNOMED Code Problem Poor vision H54.7 Active 137735797 Problem Mixed hyperlipidemia E78.2 Active 824182403 Problem Arthritis M19.90 Active 9902773 Problem Obstructive sleep apnea (adult) (pediatric) 327.23 Active 91291861 ALLERGIES Unknown Allergies SOCIAL HISTORY No smoking Hx information available PLAN OF CARE Activity Details Follow Up prn Reason: VITAL SIGNS Height 74 in 2016-02-25 Blood pressure systolic 134 mmHg 2016-02-25 Blood pressure diastolic 78 mmHg 2016-02-25 MEDICATIONS Unknown Medications RESULTS No Results PROCEDURES Procedure Date Ordered Related Diagnosis Body Site DRAIN/INJECT, JOINT/BURSA Feb 25, 2016 Office Visit, Est Pt., Level 3 Feb 25, 2016 DEPO MEDROL 80 MG/ML Feb 25, 2016 IMMUNIZATIONS No Known Immunizations
--- OUTSIDE RECORDS SUMMARY | 2017-02-22 01:12 | XMS REPORT ---
Author Author NIKHIL TAN [facility] Address Unknown Care Team Providers Care Filler Room Attendant Name Role Phone NIKHIL TAN Unavailable PROBLEMS Type Condition ICD9-CM Code XHX08-HY Code Onset Dates Condition Status SNOMED Code Problem Incomplete tear of right rotator cuff M75.111 Active 3286100 Problem Poor vision H54.7 Active 520339405 Problem Obstructive sleep apnea (adult) (pediatric) 327.23 Active 49092500 Problem Mixed hyperlipidemia E78.2 Active 294426916 Problem Arthritis M19.90 Active 4178980 ALLERGIES Substance Reaction Event Type Date Status Indomethacin Unknown Drug Allergy June, Active Clindamycin HCl Unknown Drug Allergy June, Active Cayenne Pepper Tongue Swelling Drug Allergy June, Active SOCIAL HISTORY Never Assessed PLAN OF CARE Activity Details Follow Up 1 Week Reason:suture removal VITAL SIGNS Blood pressure systolic 122 mmHg 2016-06-24 Blood pressure diastolic 69 mmHg 2016-06-24 MEDICATIONS Medication Instructions Dosage Frequency Start Date End Date Duration Status Zithromax 250 MG Orally Once a day 2 tablets on the first day, then 1 tablet daily for 4 days 24h 5 day(s) Active Urea 20 % 1 tomasa by Topical route 1 time per day Aug, Active Triamcinolone Acetonide 0.1 % Externally Twice a day 1 application to affected area 12h Active Albuterol Sulfate 90 mcg/actuation Inhalation every 4 hrs, PRN 2 puff May, Active Ibuprofen 800 MG Orally Three times a day, pc 1 tablet 20 Active RESULTS No Results PROCEDURES Procedure Date Ordered Result Body Site EXTRAC ERUPTED TOOTH/EXPOSED ROOT June 24, 2016 EXTRAC ERUPTED TOOTH/EXPOSED ROOT June 24, 2016 EXTRAC ERUPTED TOOTH/EXPOSED ROOT June 24, 2016 IMMUNIZATIONS No Known Immunizations MEDICAL (GENERAL) HISTORY Type Description Date Medical History heart murmur Medical History cancer-bladder Medical History asthma Medical History bronchitis Surgical History Cancer was removed from bladder 2009 Hospitalization History Pneumonia 1961
--- OUTSIDE RECORDS SUMMARY | 2017-02-22 01:12 | XMS REPORT ---
Author Author NIKHIL TAN [employer] Address Unknown Phone Unavailable Care Team Providers Care Maintainer Plant Name Role Phone NIKHIL TAN CP Unavailable Allergies, Adverse Reactions, Alerts Substance [...] of medial meniscus 717.3 Active Assessment Dental caries K02.9 Active Problem Flatulence, eructation, and gas pain 787.3 Active Assessment Encounter for dental examination Z01.20 Active Problem Obstructive sleep apnea (adult) (pediatric) 327.23 Active Medications Medication Code System Code Instructions Start Date End Date Status Dosage Penicillin V Potassium [facility] [address]-38 500 mg September 07, 2011 take 1 tablet by Oral route 3 times per day for 10 daysvoucher Urea [facility] [address]-94 20 % August 20, 2013 1 tomasa by Topical route 1 time per day Amoxicillin [facility] [address]-81 500 MG Orally Three times a day 1 capsule Azithromycin [facility] [address]-16 250 MG Orally Once a day 2 tablets on the first day, then 1 tablet daily for 4 days Wayne [facility] [address]-31 5-325 MG Orally every 6 hrs 1 tablet as needed Tramadol HCl [facility] [address]-74 50 MG Orally every 6 hrs 1 tablet as needed Naproxen [facility] [address]-94 500 mg September 19, 2013 take 1 tablet ( 500 mg) by oral route 2 times per day with food Triamcinolone Acetonide [facility] [address]-63 0.1 % Oct 07, 2013 apply a thin layer to the affected area(s) by Topical route 3 times per day dispense 60 gram tube Procedures Procedure Coding System Code Date EXTRAC ERUPTED TOOTH/EXPOSED ROOT CPT-4 D7140 Feb 03, 2015 EXTRAC ERUPTED TOOTH/EXPOSED ROOT CPT-4 D7140 Feb 03, 2015 Vital Signs Date/Time: Feb 06, 2015 Blood Pressure Diastolic 66 mmHg Blood Pressure Systolic 112 mmHg Results No Known Results Summary Purpose eClinicalWorks Submission
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
[2017-02-22] MEDS ORDERED: LACTATED RINGERS 1,000 ML IV ONE (01:16)
--- NOTE | 2017-02-22 01:28 | ED Chest Pain ---
General Stated Complaint: RT ARM PAIN, CP,SOB Source: patient, other Exam Limitations: no limitations History of Present Illness Time seen by provider: 01:17 Initial Comments Patient presents to ER by private conveyance with a chief complaint that about 11:30, an hour and 45 minutes prior to arrival he was having some right arm pain that radiated up to his right shoulder and down his back as well as his right chest. He describes it is gripping or pressure. He's never had a pain like this before. He has no history of coronary artery disease. He does have a history of asthma and he took a couple puffs on his albuterol but that did not help. He did take 800 mg ibuprofen and that made his pain go from a 10 out of 10 down to about a 6 or 7 out of 10. He was having a little nausea at the time is having on the pain but no sweats, numbness. He is also having some shortness of breath at the time. He is not having any coughing, chills, fever, nausea vomiting or diarrhea but he says last week he did have an episode for a few hours of abdominal pain with normal bowels and bladder. He denies any recent trauma however he has had some shoulder injury several years ago but he was told he needed to have a surgery for but he never did have it and has had a chronic intermittent ache in his shoulder it is nothing like what he experienced tonight. Patient quit smoking and drinking in 2004 after he was told he had bladder cancer. He has no history of coronary artery disease, COPD, hypothyroidism, diabetes, hypertension, hyperlipidemia. Allergies and Home Medications Allergies Coded Allergies: clindamycin (Verified Allergy, Unknown, 04/25/16) Uncoded Allergies: CEYANE PEPPER (Allergy, Unknown, 04/25/16) ENDOMETHICIN (Allergy, Unknown, 04/25/16) Home Medications Ibuprofen 800 Mg Tablet, 800 MG PO Q8H PRN for PAIN, (Reported) Review of Systems Constitutional: No chills, No fever EENTM: No Blurred Vision, No Double Vision Respiratory: Denies Cough, Shortness of Air, Denies Wheezing Cardiovascular: See HPI, Chest Pain, Denies Edema, Denies Irregular Heart Rate , Denies Lightheadedness, Denies Palpitations, Denies Syncope Gastrointestinal: Denies Abdomen Distended, Denies Abdominal Pain, Denies Constipated, Denies Diarrhea, Nausea, Denies Vomiting Genitourinary: Denies Burning, Denies Discharge Musculoskeletal: see HPI, back pain, No joint pain Skin: No pruritus, No rash Psychiatric/Neurological: Denies Headache, Denies Numbness, Denies Paresthesia Past Eqiumfh-Qmotxz-Uohpaq Hx Patient Social History Alcohol Use: Past History Recreational Drug Use: No Smoking Status: Former Smoker Former Smoker, Quit: Mar 06, 2004 Recent Foreign Travel: No Contact w/Someone Who Travel: No Recent Hopitalizations: No Surgeries Surgeries: Bladder Surgery Respiratory Respiratory Disorders: Pneumonia, Sleep Apnea Reproductive System Hx Reproductive Disorders: No Sexually Transmitted Disease: No Musculoskeletal Musculoskeletal Disorders: Arthritis Cancer Cancer: Bladder Physical Exam Vital Signs Vital Sign - Last 12Hours 02/22/17 02/22/17 01:15 01:43 Temp 97.3 Pulse 131 Resp 18 B/P (MAP) 134/117 (123) Pulse Ox 91 O2 Delivery Nasal Cannula O2 Flow Rate 2.0 FiO2 98 Capillary Refill : General Appearance: Mild Distress, Obese HEENT: PERRL/EOMI, Pharynx Normal, Moist Mucous Membranes Neck: Full Range of Motion, Normal Inspection, Supple Respiratory: Chest Non Tender, No Accessory Muscle Use, No Respiratory Distress , Decreased Breath Sounds, Wheezing (bilaterally) Cardiovascular: Regular Rate, Rhythm, No Edema, No Gallop, No JVD, No Murmur, Normal Peripheral Pulses Gastrointestinal: Normal Bowel Sounds, Non Tender, Soft Extremity: Normal Capillary Refill, Normal Inspection, Non Tender, No Calf Tenderness, No Pedal Edema Neurologic/Psychiatric: Alert, Oriented x3, No Motor/Sensory Deficits Skin: Normal Color, Warm/Dry Progress/Results/Core Measures Results/Orders Lab Results Laboratory Tests Test 02/22/17 01:15 Range/Units White Blood Count 8.3 4.3-11.0 10^3/uL Red Blood Count 5.17 4.35-5.85 10^6/uL Hemoglobin 15.0 13.3-17.7 G/DL Hematocrit 47 40-54 % Mean Corpuscular Volume 91 80-99 FL Mean Corpuscular Hemoglobin 29 25-34 PG Mean Corpuscular Hemoglobin Concent 32 32-36 G/DL Red Cell Distribution Width 12.6 10.0-14.5 % Platelet Count 337 130-400 10^3/uL Mean Platelet Volume 10.2 7.4-10.4 FL Neutrophils (%) (Auto) 69 42-75 % Lymphocytes (%) (Auto) 19 12-44 % Monocytes (%) (Auto) 8 0-12 % Eosinophils (%) (Auto) 2 0-10 % Basophils (%) (Auto) 1 0-10 % Neutrophils # (Auto) 5.7 1.8-7.8 X 10^3 Lymphocytes # (Auto) 1.6 1.0-4.0 X 10^3 Monocytes # (Auto) 0.7 0.0-1.0 X 10^3 Eosinophils # (Auto) 0.2 0.0-0.3 10^3/uL Basophils # (Auto) 0.1 0.0-0.1 10^3/uL Prothrombin Time 13.6 12.2-14.7 SEC INR Comment 1.0 0.8-1.4 Activated Partial Thromboplast Time 30 24-35 SEC Sodium Level 141 135-145 MMOL/L Potassium Level 4.1 3.6-5.0 MMOL/L Chloride Level 103 98-107 MMOL/L Carbon Dioxide Level 25 21-32 MMOL/L Anion Gap 13 5-14 MMOL/L Blood Urea Nitrogen 18 7-18 MG/DL Creatinine 1.11 0.60-1.30 MG/DL Estimat Glomerular Filtration Rate > 60 BUN/Creatinine Ratio 16 Glucose Level 110 H 70-105 MG/DL Calcium Level 9.5 8.5-10.1 MG/DL Magnesium Level 2.1 1.8-2.4 MG/DL Total Bilirubin 0.4 0.1-1.0 MG/DL Aspartate Amino Transf (AST/SGOT) 22 5-34 U/L Alanine Aminotransferase (ALT/SGPT) 37 0-55 U/L Alkaline Phosphatase 80 40-136 U/L Myoglobin 37.5 10.0-92.0 NG/ML Troponin I < 0.30 <0.30 NG/ML Total Protein 7.5 6.4-8.2 GM/DL Albumin 4.0 3.2-4.5 GM/DL My Orders Orders - MERA PATEL Cbc With Automated Diff (02/22/17 01:16) Magnesium (02/22/17 01:16) Ekg Tracing (02/22/17 01:16) Cardiac Profile 1 (02/22/17 01:16) Comprehensive Metabolic Panel (02/22/17 01:16) Myoglobin Serum (02/22/17 01:16) Protime With Inr (02/22/17 01:16) Partial Thromboplastin Time (02/22/17 01:16) O2 (02/22/17 01:16) Monitor-Rhythm Ecg Trace Only (02/22/17 01:16) Lipid Panel (02/23/17 06:00) Aspirin Chewable Tablet (Baby Aspirin Ch (02/22/17 01:30) Saline Lock/Iv-Start (02/22/17 01:16) Chest Pa/Lat (2 View) (02/22/17 01:16) Albuterol/Ipra Inhalation Soln (Duoneb I (02/22/17 01:30) Saline Lock/Iv-Start (02/22/17 01:16) Lactated Ringers (Lr 1000 Ml Iv Solution (02/22/17 01:16) Svn Sm Volume Nebulizer Rt-Rfs (02/22/17 01:16) Ns (Ivpb) (Sodium C... W/Diltiazem Iv Fo (02/22/17 01:45) Apixaban Tablet (Eliquis Tablet) (02/22/17 01:45) Medications Given in ED Current Medications Medications Dose Ordered Sig/Elder Route Start Time Stop Time Status Last Admin Dose Admin Albuterol/ Ipratropium 3 ml ONCE ONCE INH 02/22/17 01:30 02/22/17 01:31 DC 02/22/17 01:44 3 ML Apixaban 5 mg ONCE ONCE PO 02/22/17 01:45 02/22/17 01:46 DC 02/22/17 01:52 5 MG Aspirin 324 mg ONCE ONCE PO 02/22/17 01:30 02/22/17 01:31 DC 02/22/17 01:36 324 MG Lactated Ringer's 1,000 ml @ 0 mls/hr Q0M ONCE IV 02/22/17 01:16 02/22/17 01:21 DC 02/22/17 01:36 0 MLS/HR Vital Signs/I&O Vital Sign - Last 12Hours 02/22/17 02/22/17 02/22/17 02/22/17 01:15 01:15 01:27 01:43 Temp 97.3 Pulse 131 131 Resp 18 18 B/P (MAP) 134/117 (123) 116/93 Pulse Ox 91 97 O2 Delivery Nasal Cannula Room Air Nasal Cannula Nasal Cannula O2 Flow Rate 2.0 2.0 2.00 2.00 FiO2 98 18 18 01:45 01:52 Temp 97.3 Pulse 131 Resp 18 B/P (MAP) 116/93 Pulse Ox 95 95 O2 Delivery Nasal Cannula Nasal Cannula O2 Flow Rate 2.00 2.00 Progress Note : Time: 01:31 Progress Note No risk factors for a PE. Does not smoke. Does have a history of cancer but that was over 10 years ago in remission. Looks like a new onset of atrial fibrillation and rapid ventricular rate with symptomatic appearance. We'll discuss initial approach with cardiology to use beta blockers, or calcium channel blockers as the patient is stable at this time. ECG Initial ECG Impression Date: Feb 22, 2017 Initial ECG Impression Time: 01:27 Initial ECG Rate: 118 Initial ECG Rhythm: A Fib/Flutter Initial ECG Intervals: QRS (78) Initial ECG Impression: Atrial Fibrillation w/RVR Initial ECG Comparisson: No Previous ECG Available Comment New-onset atrial fibrillation with rapid ventricular response. No T-wave elevation or depression. Diagnostic Imaging Diagonstic Imaging: Xray Plain Films/CT/US/NM/MRI: chest (2v) Comments No acute cardiopulmonary process noted on a 2 view x-ray. Reviewed: Reviewed by Me Consults Consults : Consulting Physician: A Departure Communication (Admissions) Time/Spoke to Admitting Phy: 02:[address] Harrison discussed case lab imaging findings and Dr. Jama's plan and she is okay with that. Patient to the ICU. Time/Spoke to Consulting Phy: 01:40 Communication/Consulting Dr. Jama: If enzymes are not elevated get Eliquis 5 mg by mouth twice a day and no aspirin. Cardizem drip started at 10 mg an hour. ICU care. Impression Impression: Primary Impression: Atrial fibrillation with RVR Additional Impression: Chest pain Qualified Codes: R07.9 - Chest pain, unspecified Disposition: 09 ADMITTED INPATIENT Condition: Stable Admissions Decision to Admit Reason: Admit from ER (General) Decision to Admit/Date: Feb 22, 2017 Time/Decision to Admit Time: 01:43 Departure-Patient Inst. Referrals: PAMELA WHELAN DO (PCP) Primary Care Physician VICK FRANK MD (Family) Primary Care Physician Copy Copies To 1: PAMELA WHELAN DO Copies To 2: EVELIA JAMA MD FACP FAC CCDS MERA PATEL Feb 22, 2017 01:28
[2017-02-22] MEDS ORDERED: RT-ALBUTEROL/IPRATROPIUM 3 ML (DUONEB) VIAL INH ONE (01:30)
[2017-02-22] MEDS ORDERED: ASPIRIN 81 MG CHEW (CHILDREN'S ASA) PO ONE (01:30)
[2017-02-22 01:39] LABS: BASOPHILS # (AUTO) 0.1 10^3/uL (0.0-0.1); BASOPHILS % (AUTO) 1 % (0-10); EOSINOPHILS # (AUTO) 0.2 10^3/uL (0.0-0.3); EOSINOPHILS % (AUTO) 2 % (0-10); HEMATOCRIT 47 % (40-54); LYMPHOCYTES # (AUTO) 1.6 X 10^3 (1.0-4.0); LYMPHOCYTES % (AUTO) 19 % (12-44); MEAN CORPUSCULAR HEMOGLOBIN 29 PG (25-34); MEAN CORPUSCULAR HGB CONC 32 G/DL (32-36); MEAN CORPUSCULAR VOLUME 91 FL (80-99); MEAN PLATELET VOLUME 10.2 FL (7.4-10.4); MONOCYTES # (AUTO) 0.7 X 10^3 (0.0-1.0); MONOCYTES % (AUTO) 8 % (0-12); NEUTROPHILS # (AUTO) 5.7 X 10^3 (1.8-7.8); NEUTROPHILS % (AUTO) 69 % (42-75); PLATELET COUNT 337 10^3/uL (130-400); RED BLOOD COUNT 5.17 10^6/uL (4.35-5.85); RED CELL DISTRIBUTION WIDTH 12.6 % (10.0-14.5); WHITE BLOOD COUNT 8.3 10^3/uL (4.3-11.0)
[2017-02-22] MEDS ORDERED: APIXABAN 5 MG (ELIQUIS) TABLET PO ONE (01:45)
[2017-02-22] MEDS ORDERED: DILTIAZEM IV FOR DRIP 125 MG in NS (IVPB) 100 ML IV SCH (01:45)
[2017-02-22 01:49] LABS: PROTHROMBIN TIME PATIENT 13.6 SEC (12.2-14.7)
[2017-02-22 01:59] LABS: ALANINE AMINOTRANSFERASE 37 U/L (0-55); ALKALINE PHOSPHATASE 80 U/L (40-136); BILIRUBIN,TOTAL 0.4 MG/DL (0.1-1.0); BUN/CREATININE RATIO 16; CALCIUM 9.5 MG/DL (8.5-10.1); CARBON DIOXIDE 25 MMOL/L (21-32); CHLORIDE 103 MMOL/L (98-107); CREATININE SERUM 1.11 MG/DL (0.60-1.30); GFR ESTIMATED > 60; GLUCOSE 110 MG/DL (70-105); MAGNESIUM 2.1 MG/DL (1.8-2.4); POTASSIUM 4.1 MMOL/L (3.6-5.0); SODIUM 141 MMOL/L (135-145); TOTAL PROTEIN 7.5 GM/DL (6.4-8.2)
[2017-02-22 02:06] LABS: MYOGLOBIN SERUM 37.5 NG/ML (10.0-92.0)
[2017-02-22] MEDS ORDERED: morphine INJ 10 MG/ML 1ML (SYR OR VIAL) IVP ONE (02:45)
--- OUTSIDE RECORDS SUMMARY | 2017-02-22 02:48 | XMS REPORT | Continuity of Care Document ---
Author Author [facility] Organization [facility] Address Unknown Phone Unavailable Allergies Active Description Code Type Severity Reaction Onset Reported/Identified Relationship to Patient Clinical Status Yes No Known Drug Allergies [id number] Drug Allergy Unknown N/A 09/28/2009 Yes CAYENNE PEPPER Food Allergy 07/11/2011 Yes CAYENNE PEPPER Food Allergy N /A N/A 07/11/2011 Yes indomethacin Drug Allergy N/ A N/A 08/20/2013 Yes CEYANE PEPPER CEYANE PEPPER Unknown N/A 04/25/2016 Yes clindamycin [id number] Drug Allergy Unknown N/A 04/25/2016 Yes ENDOMETHICIN [...] 719.40 PAIN IN JOINT SITE UNSPECIFIED 05/21/2012 WEHLAN DO, PAMELA K 724.2 LUMBAGO 05/21/2012 WHELAN [...] Ot 242.90 THYROTOX NOS NO CRISIS 05/18/2016 CONNIE MONTANEZ Ot 717.2 DERANG POST MED MENISCUS 05/18/2016 CONNIE MONTANEZ Ot 719.46 JOINT PAIN-L/LEG 12/14/2016 CARROL ANDRADE Ot M94.8X6 OTHER SPECIFIED DISORDERS OF CARTILAGE, 12/14/2016 CARROL ANDRADE Ot S46.011D STRAIN OF MUSC/TEND THE ROTATOR CUFF OF 12/14/2016 CARROL ANDRADE Ot S83.241D OTH TEAR OF MEDIAL MENISCUS, CURRENT INJ 12/14/2016 CARROL ANDRADEP Ot X58.XXXD EXPOSURE TO OTHER SPECIFIED FACTORS, SUB 12/14/2016 CARROL ANDRADE INSTALLATION AND REPAIR TECHNICIAN Ot Y99.8 OTHER EXTERNAL CAUSE STATUS 01/03/2017 CARROL ANDRADE INSTALLATION AND REPAIR TECHNICIAN Ot M94.8X6 OTHER SPECIFIED DISORDERS OF CARTILAGE, 01/03/2017 CARROL ANDRADE INSTALLATION AND REPAIR TECHNICIAN Ot S46.011D STRAIN OF MUSC/TEND THE ROTATOR CUFF OF 01/03/2017 CARROL ANDRADEP Ot S83.241D OTH TEAR OF MEDIAL MENISCUS, CURRENT INJ 01/03/2017 CARROL ANDRADE INSTALLATION AND REPAIR TECHNICIAN Ot X58.XXXD EXPOSURE TO OTHER SPECIFIED FACTORS, SUB 01/03/2017 CARROL ANDRADE INSTALLATION AND REPAIR TECHNICIAN Ot Y99.8 OTHER EXTERNAL CAUSE STATUS 01/03/2017 Ot 242.90 THYROTOX NOS NO CRISIS 01/03/2017 CONNIE MONTANEZ Ot 717.2 DERANG POST MED MENISCUS 01/03/2017 CONNIE MONTANEZ Ot 719.46 JOINT PAIN-L/LEG 01/03/2017 CARROL ANDRADE INSTALLATION AND REPAIR TECHNICIAN Ot M94.8X6 OTHER SPECIFIED DISORDERS OF CARTILAGE, 01/03/2017 CARROL ANDRADE INSTALLATION AND REPAIR TECHNICIAN Ot S46.011D STRAIN OF MUSC/TEND THE ROTATOR CUFF OF 01/03/2017 CARROL ANDRADEP Ot S83.241D OTH TEAR OF MEDIAL MENISCUS, CURRENT INJ 01/03/2017 CARROL ANDRADE INSTALLATION AND REPAIR TECHNICIAN Ot X58.XXXD EXPOSURE TO OTHER SPECIFIED FACTORS, SUB 01/03/2017 CARROL ANDRADE INSTALLATION AND REPAIR TECHNICIAN Ot Y99.8 OTHER EXTERNAL CAUSE STATUS Procedures Code Description Performed By Performed On JOINT INJECTION- LARGE JOINT (SPECIFY MEDCIN DESCRIPTION) 08/20/2013 99118 MRI EXTREMITY JOINT, LOWER LEFT, W/O CONTRAST [...] FOR INFLUENZA A AND B ANTIGENS BY [facility] Comprehensive metabolic panel - 04/25/16 09:00 Serum [...] - 04/25/16 09:05 QUANTITY OF GROWTH Isolated [facility] Bacterial blood culture [id number] [facility] Bacterial blood culture - 04/25/16 09:34 Bacterial blood culture NG [facility] Complete urinalysis with reflex to culture - 04/25/16 10:40 Urine color determination YELLOW NR Urine clarity determination CLEAR [facility] Urine pH measurement by test strip 6 [...] urinalysis with reflex to culture NO NRG Complete blood count (CBC) with automated white blood cell (WBC) differential - 02/22/17 01:15 Blood leukocytes automated count (number/volume) 8.3 10*3/uL 4.3-11.0 Blood erythrocytes automated count (number/volume) 5.17 10*6/uL 4.35-5.85 Venous blood hemoglobin measurement (mass/volume) 15.0 g/dL 13.3-17.7 Blood hematocrit (volume fraction) 47 % 40-54 Automated erythrocyte mean corpuscular volume 91 [foz_us] 80-99 Automated erythrocyte mean corpuscular hemoglobin (mass per erythrocyte) 29 pg 25-34 Automated erythrocyte mean corpuscular hemoglobin concentration measurement ( mass/volume) 32 g/dL 32-36 Automated erythrocyte distribution width ratio 12.6 % 10.0-14.5 Automated blood platelet count (count/volume) 337 10*3/uL 130-400 Automated blood platelet mean volume measurement 10.2 [foz_us] 7.4-10.4 Automated blood neutrophils/100 leukocytes 69 % 42-75 Automated blood lymphocytes/100 leukocytes 19 % 12-44 Blood monocytes/100 leukocytes 8 % 0-12 Automated blood eosinophils/100 leukocytes 2 % 0-10 Automated blood basophils/100 leukocytes 1 % 0-10 Blood neutrophils automated count (number/volume) 5.7 10*3 1.8-7.8 Blood lymphocytes automated count (number/volume) 1.6 10*3 1.0-4.0 Blood monocytes automated count (number/volume) 0.7 10*3 0.0-1.0 Automated eosinophil count 0.2 10*3/uL 0.0-0.3 Automated blood basophil count (count/volume) 0.1 10*3/uL 0.0-0.1 PT panel in platelet poor plasma by coagulation assay - 02/22/17 01:15 Prothrombin time (PT) in platelet poor plasma by coagulation assay 13.6 s 12.2-14.7 INR in platelet poor plasma or blood by coagulation assay 1.0 0.8-1.4 Activated partial thromboplastin time (aPTT) in platelet poor plasma bycoagulation assay - 02/22/17 01:15 Activated partial thromboplastin time (aPTT) in platelet poor plasma bycoagulation assay 30 s 24-35 Comprehensive metabolic panel - 02/22/17 01:15 Serum or plasma sodium measurement (moles/volume) 141 mmol/L 135-145 Serum or plasma potassium measurement (moles/volume) 4.1 mmol/L 3.6-5.0 Serum or plasma chloride measurement (moles/volume) 103 mmol/L 98-107 Carbon dioxide 25 mmol/L 21-32 Serum or plasma anion gap determination (moles/volume) 13 mmol/L 5-14 Serum or plasma urea nitrogen measurement (mass/volume) 18 mg/dL 7-18 Serum or plasma creatinine measurement (mass/volume) 1.11 mg/dL 0.60-1.30 Serum or plasma urea nitrogen/creatinine mass ratio 16 NRG Serum or plasma creatinine measurement with calculation of estimated glomerular filtration rate > NRG Serum or plasma glucose measurement (mass/volume) 110 mg/dL 70-105 Serum or plasma calcium measurement (mass/volume) 9.5 mg/dL 8.5-10.1 Serum or plasma total bilirubin measurement (mass/volume) 0.4 mg/dL 0.1-1.0 Serum or plasma alkaline phosphatase measurement (enzymatic activity/volume) 80 U/L 40-136 Serum or plasma aspartate aminotransferase measurement (enzymatic activity/ volume) 22 U/L 5-34 Serum or plasma alanine aminotransferase measurement (enzymatic activity/volume ) 37 U/L 0-55 Serum or plasma protein measurement (mass/volume) 7.5 g/dL 6.4-8.2 Serum or plasma albumin measurement (mass/volume) 4.0 g/dL 3.2-4.5 Magnesium - 02/22/17 01:15 Magnesium 2.1 mg/dL 1.8-2.4 Serum or plasma troponin i.cardiac measurement (mass/volume) - 02/22/17 01:15 Serum or plasma troponin i.cardiac measurement (mass/volume) < ng/ mL <0.30 Myoglobin, serum - 02/22/17 01:15 Myoglobin, serum 37.5 ng/mL 10.0-92.0 Encounters ACCT No. Visit Date/Time Discharge Status Pt. Type Provider Facility Loc./Unit Complaint [id number] 12/13/2016 14:53:00 12/13/2016 23:59:59 CLS Outpatient CARROL ANDRADE INSTALLATION AND REPAIR TECHNICIAN [facility] RAD INCOMPLETE TEAR OF RT ROTATOR CUFF M75.111 [id number] 04/25/2016 08:27:00 04/25/2016 12:20:00 DIS Emergency CONNIE RANGEL MD [facility] ER DENTAL/FACIAL PAIN HEADACHE FEVER [id number] 10/18/2013 12:56:00 10/18/2013 23:59:59 CLS Outpatient CONNIE MONTANEZ [facility] RAD LEFT KNEE PAIN [id number] 02/22/2017 01:41:00 Document Registration [id number] 09/01/2011 10:23:00 Document Registration [id number] 08/27/2011 07:52:00 Document Registration [id number] 07/14/2011 10:53:00 Document Registration [id number] 09/28/2009 12:26:00 Document Registration [id number] 11/14/2013 14:21:00 11/14/2013 23:59:59 CLS Outpatient CARROL ANDRADE APRN [id number] 10/07/2013 11:20:00 10/07/2013 23:59:59 CLS Outpatient PAMELA WHELAN DO [id number] 08/20/2013 08:11:00 08/20/2013 23:59:59 CLS Outpatient PAMELA WHELAN DO [id number] 05/21/2012 17:27:00 05/21/2012 23:59:59 CLS Outpatient PAMELA WHELAN DO [id number] 11/25/2011 10:42:00 11/25/2011 23:59:59 CLS Outpatient
[2017-02-22 03:31] LABS: BILIRUBIN,URINE NEGATIVE (NEGATIVE); CLARITY,URINE CLEAR; COLOR,URINE YELLOW; GLUCOSE, URINE (UA) NEGATIVE (NEGATIVE); KETONES,URINE NEGATIVE (NEGATIVE); LEUKOCYTE ESTERASE ,URINE NEGATIVE (NEGATIVE); NITRITE,URINE NEGATIVE (NEGATIVE); PH,URINE 6 (5-9); PROTEIN,URINE NEGATIVE (NEGATIVE); UROBILINOGEN,URINE NORMAL (NORMAL)
[2017-02-22] MEDS: NS IV 1000 ML 1,000 ML IV SCH ×4 (03:33→20:37)
[2017-02-22 03:44] LABS: BACTERIA,URINE NEGATIVE /HPF; SQUAMOUS EPITHELIAL CELL,UR RARE /HPF
[2017-02-22] MEDS ORDERED: NITROGLYCERIN 0.4 MG SL TABS BTL 25'S SL PRN (05:15)
[2017-02-22] MEDS ORDERED: RT-ALBUTEROL SULF 2.5 MG/3 ML PRE-MIX VIAL INH PRN ×2 (05:15→11:15)
[2017-02-22] MEDS ORDERED: DILTIAZEM DRIP IV SCH ×2 (05:15)
[2017-02-22] MEDS ORDERED: ONDANSETRON 4 MG/2 ML (SDV) Z0FRAN IV PRN (05:15)
[2017-02-22] MEDS ORDERED: morphine INJ 4 MG/ML 1 ML (VIAL/SYRINGE) IV PRN (05:15)
[2017-02-22] MEDS ORDERED: [UNRECOGNIZED DRUG - OTHER] IV SCH ×2 (05:15)
[2017-02-22 05:16] LABS: BASOPHILS % (AUTO) 1 % (0-10); EOSINOPHILS # (AUTO) 0.1 10^3/uL (0.0-0.3); EOSINOPHILS % (AUTO) 2 % (0-10); HEMATOCRIT 43 % (40-54); HEMOGLOBIN 14.2 G/DL (13.3-17.7); LYMPHOCYTES # (AUTO) 1.3 X 10^3 (1.0-4.0); LYMPHOCYTES % (AUTO) 18 % (12-44); MEAN CORPUSCULAR HEMOGLOBIN 30 PG (25-34); MEAN CORPUSCULAR HGB CONC 33 G/DL (32-36); MEAN CORPUSCULAR VOLUME 90 FL (80-99); MEAN PLATELET VOLUME 10.1 FL (7.4-10.4); MONOCYTES # (AUTO) 0.6 X 10^3 (0.0-1.0); MONOCYTES % (AUTO) 8 % (0-12); NEUTROPHILS # (AUTO) 5.2 X 10^3 (1.8-7.8); NEUTROPHILS % (AUTO) 72 % (42-75); PLATELET COUNT 307 10^3/uL (130-400); RED BLOOD COUNT 4.82 10^6/uL (4.35-5.85); RED CELL DISTRIBUTION WIDTH 12.5 % (10.0-14.5); WHITE BLOOD COUNT 7.2 10^3/uL (4.3-11.0)
[2017-02-22 05:41] LABS: BUN/CREATININE RATIO 18; CARBON DIOXIDE 23 MMOL/L (21-32); CHLORIDE 107 MMOL/L (98-107); CHOLESTEROL 167 MG/DL (< 200); CREATININE SERUM 0.85 MG/DL (0.60-1.30); GFR ESTIMATED > 60; GLUCOSE 102 MG/DL (70-105); HDL CHOLESTEROL 29 MG/DL (40-60); MAGNESIUM 2.1 MG/DL (1.8-2.4); PHOSPHORUS 3.8 MG/DL (2.3-4.7); POTASSIUM 4.5 MMOL/L (3.6-5.0); SODIUM 140 MMOL/L (135-145); TRIGLYCERIDES 133 MG/DL (<150); VLDL CHOLESTEROL 27 MG/DL (5-40)
[2017-02-22] MEDS ORDERED: INFLUENZA TRIvalent 2017-2018 0.5 ML/45 MCG SYR IM ONE (07:00)
--- NOTE | 2017-02-22 08:01 | Diagnostic Imaging Report ---
INDICATION: Chest pain COMPARISON: 04/25/2016 FINDINGS: The heart size is mildly enlarged. There is some distention and prominence of the upper lobe pulmonary venous structures as well as faint peripheral Arlen B lines. Findings suggest mild failure or sequelae of hypervolemia. IMPRESSION: Changes suggest mild active failure pattern or hypervolemia with probable venous hypertension and mild interstitial edema. No pleural fluid however. Dictated by: Dictated on workstation # [id number]
[2017-02-22] MEDS ORDERED: ASPIRIN 81 MG CHEW (CHILDREN'S ASA) PO NR (08:15)
--- NOTE | 2017-02-22 08:56 | Consultation-Cardiology ---
HPI-Cardiology Cardiology Consultation: Date of Consultation 02/22/17 Time Seen by Provider: 08:30 Date of Admission 02-21-17 Attending Physician Keyana Harrison MD Admitting Physician Geraldine Lay DO Consulting Physician Darion Jama MD HPI: Chief Complaint: A-fib with RVR Chest pain Elevated troponin Mr. Moody is a 61 year old male admitted to ICU 12 from the ED with new onset of a-fib with RVR and chest pain. He reports he was sitting in his recliner last evening coloring in a coloring book when he had a sudden onset of right arm pain which radiated up his arm into his shoulder, chest and back. He states it is the worst pain he has ever had. He reports feeling some shortness of breath at the time. He describes it as a heavy, pressure. He states he took Ibuprofen 800mg. He also used his Albuterol inhaler. He reports the pain persisted for several hours. He came to the ED and the pain was easing up, but was still present. He reports no c/o CP at this time. He does not report any palpitations. He states he has had episodes of shortness of breath over the last couple weeks which last for several minutes. He will take his inhaler at those times, but it doesn't seem to help. He denies any LE edema. No n/v/d. No fever or chills. No syncope or near syncope. Review of Systems-Cardiology Review of Systems Constitutional: No chills, No fever Eyes: No vision change Ears/Nose/Throat: No epistaxis Respiratory: As described under HPI Cardiovascular: As described under HPI Gastrointestinal: No diarrhea, No nausea, No vomiting Genitourinary: No dysuria, No hematuria Musculoskeletal: joint pain (right shoulder pain) Skin: No rash, No ulcerations Psychiatric/Neurological: No focal weakness, No syncope Hematologic: No bleeding abnormalities VFI-Aopsxq-Ezoaxy Hx Patient Social History Alcohol Use: Past History Recreational Drug Use: No Smoking Status: Former Smoker 2nd Hand Smoke Exposure: No Recent Foreign Travel: No Recent Infectious Disease Expo: No Hospitalization with Isolation: Denies Immunizations Up To Date Tetanus Booster (TDap): Unknown Past Medical History PMH As described under Assessment. Family Medical History Family Medical History: He reports family history of CVA and TIA's in his mother and father. He reports he has 2 brothers with "heart probems", one has a-fib. Allergies and Home Medications Allergies Coded Allergies: clindamycin (Verified Allergy, Unknown, 04/25/16) Uncoded Allergies: CEYANE PEPPER (Allergy, Unknown, 04/25/16) ENDOMETHICIN (Allergy, Unknown, 04/25/16) Home Medications Albuterol Sulfate 6.7 Gm Hfa.aer.ad, 2 PUFF IH Q6H PRN for SHORTNESS OF BREATH, (Reported) Ibuprofen 800 Mg Tablet, 800 MG PO TID PRN for PAIN-MILD, (Reported) Menthol 118 Ml Gel..ml., TP TID PRN for JOINT PAIN, (Reported) Physical Exam-Cardiology Physical Exam Vital Signs/I&O Vital Sign - Last 12Hours 02/22/17 02/22/17 02/22/17 02/22/17 03:09 03:11 03:15 03:20 Temp 98.2 Pulse 130 130 114 Resp 10 B/P (MAP) 125/94 (104) 107/89 (95) Pulse Ox 97 O2 Delivery Nasal Cannula Nasal Cannula Nasal Cannula O2 Flow Rate 2.00 2.00 2.00 02/22/17 02/22/17 02/22/17 02/22/17 03:30 03:45 04:00 04:00 Pulse 109 98 98 Resp 12 23 23 B/P (MAP) 107/70 (82) 104/73 (83) 96/74 (81) Pulse Ox 93 94 93 94 O2 Delivery Nasal Cannula Nasal Cannula Nasal Cannula Nasal Cannula O2 Flow Rate 2.00 2.00 2.00 2.00 02/22/17 02/22/17 02/22/17 02/22/17 04:15 04:30 04:45 05:00 Pulse 95 93 93 91 Resp 25 26 12 18 B/P (MAP) 101/71 (81) 93/79 (84) 92/71 (78) 92/65 (74) Pulse Ox 94 94 93 96 O2 Delivery Nasal Cannula Nasal Cannula Nasal Cannula Nasal Cannula O2 Flow Rate 2.00 2.00 2.00 2.00 02/22/17 02/22/17 02/22/17 02/22/17 05:15 05:30 05:45 06:00 Pulse 86 92 75 80 Resp 22 22 14 15 B/P (MAP) 96/63 (74) 91/75 (80) 97/82 (87) 86/69 (75) Pulse Ox 93 95 92 93 O2 Delivery Nasal Cannula Nasal Cannula Nasal Cannula Nasal Cannula O2 Flow Rate 2.00 2.00 2.00 2.00 02/22/17 02/22/17 02/22/17 02/22/17 06:15 06:30 06:45 07:00 Pulse 82 87 89 82 Resp 18 15 14 25 B/P (MAP) 83/47 (59) 90/66 (74) 96/68 (77) 106/66 (79) Pulse Ox 94 95 95 95 O2 Delivery Nasal Cannula Nasal Cannula Nasal Cannula Nasal Cannula O2 Flow Rate 2.00 2.00 2.00 2.00 02/22/17 02/22/17 02/22/17 02/22/17 07:00 08:00 08:00 08:00 Temp 98.7 Pulse 82 100 Resp 27 B/P (MAP) 98/82 (87) Pulse Ox 94 O2 Delivery Nasal Cannula Nasal Cannula Nasal Cannula O2 Flow Rate 2.00 2.00 2.00 02/22/17 02/22/17 02/22/17 02/22/17 09:00 10:00 11:00 12:00 Temp 98.0 Pulse 102 105 106 Resp 20 26 13 B/P (MAP) 93/80 (84) 97/75 (82) 114/90 (98) Pulse Ox 95 93 95 O2 Delivery Nasal Cannula Nasal Cannula Nasal Cannula O2 Flow Rate 2.00 2.00 2.00 02/22/17 02/22/17 02/22/17 02/22/17 12:00 12:00 13:00 13:00 Pulse 105 98 98 Resp 16 24 B/P (MAP) 96/71 (79) 104/76 (85) Pulse Ox 92 94 O2 Delivery Nasal Cannula Nasal Cannula Nasal Cannula O2 Flow Rate 2.00 2.00 2.00 02/22/17 02/22/17 02/22/17 14:00 14:25 14:30 Pulse 120 98 Resp 20 B/P (MAP) 130/99 (109) Pulse Ox 93 95 O2 Delivery Nasal Cannula Nasal Cannula O2 Flow Rate 2.00 2.00 FiO2 28 Capillary Refill : Less Than 3 Seconds Constitutional: AAO x 3 HEENT: PERRL Neck: No carotid bruit, carotid pulses are 2 + bilaterally Respiratory: No accessory muscle use, No respiratory distress, chest expansion is symmetric, chest is bilaterally symmetric, lungs clear to auscultation Cardiovascular: irregularly irregular, No JVD, S1 and S2 Gastrointestinal: No tender, soft, audible bowel sounds Rectal: deferred Extremities: no lower extremity edema bilateral Neurologic/Psychiatric: grossly intact, power is 5/5 both on sides Skin: No rash, No ulcerations Data Review Labs Laboratory Tests 02/22/17 01:15: White Blood Count 8.3, Red Blood Count 5.17, Hemoglobin 15.0, Hematocrit 47, Mean Corpuscular Volume 91, Mean Corpuscular Hemoglobin 29, Mean Corpuscular Hemoglobin Concent 32, Red Cell Distribution Width 12.6, Platelet Count 337, Mean Platelet Volume 10.2, Neutrophils (%) (Auto) 69, Lymphocytes (%) (Auto) 19 , Monocytes (%) (Auto) 8, Eosinophils (%) (Auto) 2, Basophils (%) (Auto) 1, Neutrophils # (Auto) 5.7, Lymphocytes # (Auto) 1.6, Monocytes # (Auto) 0.7, Eosinophils # (Auto) 0.2, Basophils # (Auto) 0.1, Prothrombin Time 13.6, INR Comment 1.0, Activated Partial Thromboplast Time 30, Sodium Level 141, Potassium Level 4.1, Chloride Level 103, Carbon Dioxide Level 25, Anion Gap 13, Blood Urea Nitrogen 18, Creatinine 1.11, Estimat Glomerular Filtration Rate > 60 , BUN/Creatinine Ratio 16, Glucose Level 110H, Calcium Level 9.5, Magnesium Level 2.1, Total Bilirubin 0.4, Aspartate Amino Transf (AST/SGOT) 22, Alanine Aminotransferase (ALT/SGPT) 37, Alkaline Phosphatase 80, Myoglobin 37.5, Troponin I < 0.30, Total Protein 7.5, Albumin 4.0 02/22/17 03:10: Urine Color YELLOW, Urine Clarity CLEAR, Urine pH 6, Urine Specific Madeline 1.015L, Urine Protein NEGATIVE, Urine Glucose (UA) NEGATIVE, Urine Ketones NEGATIVE, Urine Nitrite NEGATIVE, Urine Bilirubin NEGATIVE, Urine Urobilinogen NORMAL, Urine Leukocyte Esterase NEGATIVE, Urine RBC (Auto) 2+H, Urine RBC 2-5H , Urine WBC NONE, Urine Squamous Epithelial Cells RARE, Urine Crystals NONE, Urine Bacteria NEGATIVE, Urine Casts NONE, Urine Mucus NEGATIVE, Urine Culture Indicated NO 02/22/17 05:03: Sodium Level 140, Potassium Level 4.5, Chloride Level 107, Carbon Dioxide Level 23, Anion Gap 10, Blood Urea Nitrogen 15, Creatinine 0.85, Estimat Glomerular Filtration Rate > 60, BUN/Creatinine Ratio 18, Glucose Level 102, Calcium Level 9.0, Magnesium Level 2.1, Phosphorus Level 3.8, Triglycerides Level 133, Cholesterol Level 167, LDL Cholesterol Direct 125, VLDL Cholesterol 27, HDL Cholesterol 29L 02/22/17 05:05: White Blood Count 7.2, Red Blood Count 4.82, Hemoglobin 14.2, Hematocrit 43, Mean Corpuscular Volume 90, Mean Corpuscular Hemoglobin 30, Mean Corpuscular Hemoglobin Concent 33, Red Cell Distribution Width 12.5, Platelet Count 307, Mean Platelet Volume 10.1, Neutrophils (%) (Auto) 72, Lymphocytes (%) (Auto) 18 , Monocytes (%) (Auto) 8, Eosinophils (%) (Auto) 2, Basophils (%) (Auto) 1, Neutrophils # (Auto) 5.2, Lymphocytes # (Auto) 1.3, Monocytes # (Auto) 0.6, Eosinophils # (Auto) 0.1, Basophils # (Auto) 0.0 02/22/17 07:09: Troponin I 0.85*H 02/22/17 13:10: Troponin I 1.63*H Radiology NAME: KEATON MOODY MED REC#: [id number] PT STATUS: ADM IN : 1955 PHYSICIAN: MERA PATEL MD ADMIT DATE: 02/22/17/ICU Draft Date of Exam:02/22/17 CHEST PA/LAT (2 VIEW) INDICATION: Chest pain COMPARISON: 04/25/2016 FINDINGS: The heart size is mildly enlarged. There is some distention and prominence of the upper lobe pulmonary venous structures as well as faint peripheral Arlen B lines. Findings suggest mild failure or sequelae of hypervolemia. IMPRESSION: Changes suggest mild active failure pattern or hypervolemia with probable venous hypertension and mild interstitial edema. No pleural fluid however. Dictated on workstation # [id number] Dict: 02/22/17 [id number] Trans: 02/22/17 0801 [facility] [id number] Interpreted by: MYRON HASSAN Electronically signed by: ECG Impression ECG Initial ECG Impression: Atrial Fibrillation w/RVR A/P-Cardiology Assessment/Admission Diagnosis NSTEMI New onset a-fib with RVR (first documented on 02-21-17) - rate currently controlled Right sided chest pain Sleep apnea syndrome (for which he has been non-compliant with tx for over a year) Chronic right shoulder pain d/t torn rotator cuff H/O bladder cancer with surgical treatment in 2009 H/O tobaccoism - quit in 2009 Elevated BMI of approx 38 Clinical Quality Measures AMI/AHF: ASA po Prior to arrival: No DVT/VTE Risk/Contraindication: Risk Factor Score Per Nursin RFS Level Per Nursing on Admit: 3=High DI MOFFETT Feb 22, 2017 08:56
[2017-02-22] MEDS ORDERED: meTOproloL SUCCINATE 50 MG (TOPROL XL) TAB PO SCH (09:00)
[2017-02-22] MEDS ORDERED: APIXABAN 5 MG (ELIQUIS) TABLET PO SCH (09:00)
[2017-02-22] MEDS ORDERED: meTOprolol TARTRATE 25 MG (LOPRESSOR) TABLET PO SCH (09:00)
[2017-02-22] MEDS ORDERED: lisINopril 10 MG (PRINIVIL) TAB PO SCH (09:00)
[2017-02-22] MEDS ORDERED: MENT118G TP (09:32)
[2017-02-22] MEDS ORDERED: RT-ALBUINH IH ×2 (09:32→09:33)
[2017-02-22] MEDS: APIXABAN 5 MG (ELIQUIS) TABLET PO SCH ×2 (10:46→22:07)
--- NOTE | 2017-02-22 10:56 | History & Physicial (CHS) ---
HPI History of Present Illness: 61 yo male presented to ER with onset of right sided chest pain about 30 minutes before arrival. He had pain in his right elbow while sitting in his recliner which progressed up his arm, through his back and chest and became severe. He felt slightly short of breath, but denies any other symptoms. Date seen by provider: Feb 22, 2017 Time Seen by Provider: 09:47 Attending Physician Tyrel Samuel MD PCP Geraldine Lay DO Consult Date of Admission Feb 22, 2017 at 01:45 Home Medications Home Medications Reviewed patient Home Medication Reconciliation Form Allergies Coded Allergies: clindamycin (Verified Allergy, Unknown, 04/25/16) Uncoded Allergies: CEYANE PEPPER (Allergy, Unknown, 04/25/16) ENDOMETHICIN (Allergy, Unknown, 04/25/16) [id number] Hx Patient Social History Alcohol Use: Past History Recreational Drug Use: No Smoking Status: Former Smoker Former smoker/When Quit: Feb 20, 2009 2nd Hand Smoke Exposure: No Recent Foreign Travel: No Contact w/other who traveled: No Recent Hopitalizations: No Recent Infectious Disease Expo: No Immunizations Up To Date Tetanus Booster (TDap): Unknown Past Medical History PMHx: Bladder cancer Asthma Left meniscus tear Right rotator cuff tear PSurgHx: Bladder tumor removal Family Medical History Significant Family History: Heart Disease, Cancer, Lung Disease, Stroke Review of Systems ([facility]) Constitutional: No chills, No fever EENTM: No nose congestion, No throat pain Respiratory: No cough Cardiovascular: see HPI Gastrointestinal: No abdominal pain, No constipation, No diarrhea, No vomiting Genitourinary: no symptoms reported Musculoskeletal: joint pain Skin: no symptoms reported Psychiatric/Neurological: No Symptoms Reported Reviewed Test Results Reviewed Test Results Lab Laboratory Tests Test 02/22/17 01:15 02/22/17 03:10 02/22/17 05:03 02/22/17 05:05 Range/Units White Blood Count 8.3 7.2 4.3-11.0 10^3/uL Red Blood Count 5.17 4.82 4.35-5.85 10^6/uL Hemoglobin 15.0 14.2 13.3-17.7 G/DL Hematocrit 47 43 40-54 % Mean Corpuscular Volume 91 90 80-99 FL Mean Corpuscular Hemoglobin 29 30 25-34 PG Mean Corpuscular Hemoglobin Concent 32 33 32-36 G/DL Red Cell Distribution Width 12.6 12.5 10.0-14.5 % Platelet Count 337 307 130-400 10^3/uL Mean Platelet Volume 10.2 10.1 7.4-10.4 FL Neutrophils (%) (Auto) 69 72 42-75 % Lymphocytes (%) (Auto) 19 18 12-44 % Monocytes (%) (Auto) 8 8 0-12 % Eosinophils (%) (Auto) 2 2 0-10 % Basophils (%) (Auto) 1 1 0-10 % Neutrophils # (Auto) 5.7 5.2 1.8-7.8 X 10^3 Lymphocytes # (Auto) 1.6 1.3 1.0-4.0 X 10^3 Monocytes # (Auto) 0.7 0.6 0.0-1.0 X 10^3 Eosinophils # (Auto) 0.2 0.1 0.0-0.3 10^3/uL Basophils # (Auto) 0.1 0.0 0.0-0.1 10^3/uL Prothrombin Time 13.6 12.2-14.7 SEC INR Comment 1.0 0.8-1.4 Activated Partial Thromboplast Time 30 24-35 SEC Sodium Level 141 140 135-145 MMOL/L Potassium Level 4.1 4.5 3.6-5.0 MMOL/L Chloride Level 103 107 98-107 MMOL/L Carbon Dioxide Level 25 23 21-32 MMOL/L Anion Gap 13 10 5-14 MMOL/L Blood Urea Nitrogen 18 15 7-18 MG/DL Creatinine 1.11 0.85 0.60-1.30 MG/DL Estimat Glomerular Filtration Rate > 60 > 60 BUN/Creatinine Ratio 16 18 Glucose Level 110 H 102 70-105 MG/DL Calcium Level 9.5 9.0 8.5-10.1 MG/DL Magnesium Level 2.1 2.1 1.8-2.4 MG/DL Total Bilirubin 0.4 0.1-1.0 MG/DL Aspartate Amino Transf (AST/SGOT) 22 5-34 U/L Alanine Aminotransferase (ALT/SGPT) 37 0-55 U/L Alkaline Phosphatase 80 40-136 U/L Myoglobin 37.5 10.0-92.0 NG/ML Troponin I < 0.30 <0.30 NG/ML Total Protein 7.5 6.4-8.2 GM/DL Albumin 4.0 3.2-4.5 GM/DL Urine Color YELLOW Urine Clarity CLEAR Urine pH 6 5-9 Urine Specific [place] 1.015 L 1.016-1.022 Urine Protein NEGATIVE NEGATIVE Urine Glucose (UA) NEGATIVE NEGATIVE Urine Ketones NEGATIVE NEGATIVE Urine Nitrite NEGATIVE NEGATIVE Urine Bilirubin NEGATIVE NEGATIVE Urine Urobilinogen NORMAL NORMAL MG/DL Urine Leukocyte Esterase NEGATIVE NEGATIVE Urine RBC (Auto) 2+ H NEGATIVE Urine RBC 2-5 H /HPF Urine WBC NONE /HPF Urine Squamous Epithelial Cells RARE /HPF Urine Crystals NONE /LPF Urine Bacteria NEGATIVE /HPF Urine Casts NONE /LPF Urine Mucus NEGATIVE /LPF Urine Culture Indicated NO Phosphorus Level 3.8 2.3-4.7 MG/DL Triglycerides Level 133 <150 MG/DL Cholesterol Level 167 < 200 MG/DL LDL Cholesterol Direct 125 1-129 MG/DL VLDL Cholesterol 27 5-40 MG/DL HDL Cholesterol 29 L 40-60 MG/DL Test 02/22/17 07:09 Range/Units Troponin I 0.85 *H <0.30 NG/ML Radiology NAME: KEATON MOODY MED REC#: [id number] PT STATUS: ADM IN : 1955 PHYSICIAN: MERA PATEL MD ADMIT DATE: 02/22/17/ICU Draft Date of Exam:02/22/17 CHEST PA/LAT (2 VIEW) INDICATION: Chest pain COMPARISON: 04/25/2016 FINDINGS: The heart size is mildly enlarged. There is some distention and prominence of the upper lobe pulmonary venous structures as well as faint peripheral Arlen B lines. Findings suggest mild failure or sequelae of hypervolemia. IMPRESSION: Changes suggest mild active failure pattern or hypervolemia with probable venous hypertension and mild interstitial edema. No pleural fluid however. Dictated on workstation # [id number] Dict: 02/22/17 0758 Trans: 02/22/17 0801 RANJIT [id number] Interpreted by: MYRON HASSAN Electronically signed by: Physical Exam-([facility]) Physical Exam Vital Signs VS - Last 72 Hours, by Label 02/22/17 02/22/17 02/22/17 02/22/17 01:15 01:15 01:27 01:43 Temp 97.3 Pulse 131 131 Resp 18 18 B/P (MAP) 134/117 (123) 116/93 Pulse Ox 91 97 O2 Delivery Nasal Cannula Room Air Nasal Cannula Nasal Cannula O2 Flow Rate 2.0 2.0 2.00 2.00 FiO2 98 02/22/17 02/22/17 02/22/17 02/22/17 01:45 01:52 02:37 02:41 Temp 97.3 97.8 97.8 Pulse 131 121 Resp 18 16 B/P (MAP) 116/93 Pulse Ox 95 95 97 O2 Delivery Nasal Cannula Nasal Cannula Nasal Cannula O2 Flow Rate 2.00 2.00 2.00 02/22/17 02/22/17 02/22/17 02/22/17 03:09 03:11 03:15 03:20 Temp 98.2 Pulse 130 130 114 Resp 10 B/P (MAP) 125/94 (104) 107/89 (95) Pulse Ox 97 O2 Delivery Nasal Cannula Nasal Cannula Nasal Cannula O2 Flow Rate 2.00 2.00 2.00 02/22/17 02/22/17 02/22/17 02/22/17 03:30 03:45 04:00 04:00 Pulse 109 98 98 Resp 12 23 23 B/P (MAP) 107/70 (82) 104/73 (83) 96/74 (81) Pulse Ox 93 94 93 94 O2 Delivery Nasal Cannula Nasal Cannula Nasal Cannula Nasal Cannula O2 Flow Rate 2.00 2.00 2.00 2.00 02/22/17 02/22/17 02/22/17 02/22/17 04:15 04:30 04:45 05:00 Pulse 95 93 93 91 Resp 25 26 12 18 B/P (MAP) 101/71 (81) 93/79 (84) 92/71 (78) 92/65 (74) Pulse Ox 94 94 93 96 O2 Delivery Nasal Cannula Nasal Cannula Nasal Cannula Nasal Cannula O2 Flow Rate 2.00 2.00 2.00 2.00 02/22/17 02/22/17 02/22/17 02/22/17 05:15 05:30 05:45 06:00 Pulse 86 92 75 80 Resp 22 22 14 15 B/P (MAP) 96/63 (74) 91/75 (80) 97/82 (87) 86/69 (75) Pulse Ox 93 95 92 93 O2 Delivery Nasal Cannula Nasal Cannula Nasal Cannula Nasal Cannula O2 Flow Rate 2.00 2.00 2.00 2.00 02/22/17 02/22/17 02/22/17 02/22/17 06:15 06:30 06:45 07:00 Pulse 82 87 89 82 Resp 18 15 14 25 B/P (MAP) 83/47 (59) 90/66 (74) 96/68 (77) 106/66 (79) Pulse Ox 94 95 95 95 O2 Delivery Nasal Cannula Nasal Cannula Nasal Cannula Nasal Cannula O2 Flow Rate 2.00 2.00 2.00 2.00 02/22/17 02/22/17 02/22/17 02/22/17 07:00 08:00 08:00 08:00 Temp 98.7 Pulse 82 100 Resp 27 B/P (MAP) 98/82 (87) Pulse Ox 94 O2 Delivery Nasal Cannula Nasal Cannula Nasal Cannula O2 Flow Rate 2.00 2.00 2.00 02/22/17 02/22/17 09:00 10:00 Pulse 102 105 Resp 20 26 B/P (MAP) 93/80 (84) 97/75 (82) Pulse Ox 95 93 O2 Delivery Nasal Cannula Nasal Cannula O2 Flow Rate 2.00 2.00 Capillary Refill : Less Than 3 Seconds General Appearance: no apparent distress, obese Respiratory: lungs clear, normal breath sounds Cardiovascular: No no murmur, irregularly irregular Gastrointestinal: normal bowel sounds, non tender, soft Extremities: no pedal edema Neurologic/Psychiatric: alert, normal mood/affect Skin: normal color, warm/dry Clinical Quality Measures AMI/AHF: ASA po Prior to arrival: No DVT/VTE Risk/Contraindication: Risk Factor Score Per Nursin RFS Level Per Nursing on Admit: 3=High Assessment/Plan Assessment/Plan (1) Atrial fibrillation with RVR Status: Acute Assessment & Plan: Cardiology consulted, started on cardizem drip initially, now on metoprolol with fair rate control but relatively low BP. -Check TSH, echo, other recommendations per Cardiology -Known sleep apnea with no CPAP for 2 years, will attempt to get new machine or old machine fixed, social work consulted (2) Elevated troponin Status: Acute Assessment & Plan: Management per Cardiology (3) Sleep apnea Status: Chronic Assessment & Plan: Will work on getting working machine for home Qualifiers: Qualified Codes: G47.33 - Obstructive sleep apnea (adult) (pediatric) (4) Asthma Status: Chronic Assessment & Plan: Suspect possible COPD given smoking history, resume home albuterol as needed, RT protocol TYREL SAMUEL MD Feb 22, 2017 10:56
--- NOTE | 2017-02-22 14:00 | Consultation-Cardiology ---
HPI-Cardiology Cardiology Consultation: Date of Consultation 02/22/17 Time Seen by Provider: 09:00 Date of Admission Attending Physician Keyana Harrison MD Admitting Physician Geraldine Lay DO Consulting Physician EVELIA CARMEN MD, MA, FACP, FACC, FSCAI, CCDS HPI: Chief Complaint: A-fib with RVR Chest pain Elevated troponin Mr. Lynn is a 61 year old male admitted to ICU 12 from the ED with new onset of a-fib with RVR and chest pain. He reports he was sitting in his recliner last evening coloring in a coloring book when he had a sudden onset of right arm pain which radiated up his arm into his shoulder, chest and back. He states it is the worst pain he has ever had. He reports feeling some shortness of breath at the time. He describes it as a heavy, pressure. He states he took Ibuprofen 800mg. He also used his Albuterol inhaler. He reports the pain persisted for several hours. He came to the ED and the pain was easing up, but was still present. He reports no c/o CP at this time. He does not report any palpitations. He states he has had episodes of shortness of breath over the last couple weeks which last for several minutes. He will take his inhaler at those times, but it doesn't seem to help. He denies any LE edema. No n/v/d. No fever or chills. No syncope or near syncope. Review of Systems-Cardiology Review of Systems Constitutional: No chills, No fever Eyes: No vision change Ears/Nose/Throat: No epistaxis Respiratory: As described under HPI Cardiovascular: As described under HPI Gastrointestinal: No diarrhea, No nausea, No vomiting Genitourinary: No dysuria, No hematuria Musculoskeletal: joint pain (right shoulder pain) Skin: No rash, No ulcerations Psychiatric/Neurological: No focal weakness, No syncope Hematologic: No bleeding abnormalities AHW-Osyohj-Mxdnfi Hx Patient Social History Alcohol Use: Past History Recreational Drug Use: No Smoking Status: Former Smoker Former smoker/When Quit: Feb 20, 2009 2nd Hand Smoke Exposure: No Recent Foreign Travel: No Recent Infectious Disease Expo: No Hospitalization with Isolation: Denies Immunizations Up To Date Tetanus Booster (TDap): Unknown Past Medical History PMH As described under Assessment. Family Medical History Family Medical History: He reports family history of CVA and TIA's in his mother and father. He reports he has 2 brothers with "heart probems", one has a-fib. Allergies and Home Medications Allergies Coded Allergies: clindamycin (Verified Allergy, Unknown, 04/25/16) Uncoded Allergies: CEYANE PEPPER (Allergy, Unknown, 04/25/16) ENDOMETHICIN (Allergy, Unknown, 04/25/16) Home Medications Albuterol Sulfate 6.7 Gm Hfa.aer.ad, 2 PUFF IH Q6H PRN for SHORTNESS OF BREATH, (Reported) Ibuprofen 800 Mg Tablet, 800 MG PO TID PRN for PAIN-MILD, (Reported) Menthol 118 Ml Gel..ml., TP TID PRN for JOINT PAIN, (Reported) Physical Exam-Cardiology Physical Exam Vital Signs/I&O Vital Sign - Last 12Hours 02/22/17 02/22/17 02/22/17 02/22/17 02:37 02:41 03:09 03:11 Temp 97.8 97.8 98.2 Pulse 121 130 130 Resp 16 B/P (MAP) 125/94 (104) Pulse Ox 97 O2 Delivery Nasal Cannula Nasal Cannula O2 Flow Rate 2.00 2.00 02/22/17 02/22/17 02/22/17 02/22/17 03:15 03:20 03:30 03:45 Pulse 114 109 98 Resp 10 12 23 B/P (MAP) 107/89 (95) 107/70 (82) 104/73 (83) Pulse Ox 97 93 94 O2 Delivery Nasal Cannula Nasal Cannula Nasal Cannula Nasal Cannula O2 Flow Rate 2.00 2.00 2.00 2.00 02/22/17 02/22/17 02/22/17 02/22/17 04:00 04:00 04:15 04:30 Pulse 98 95 93 Resp 23 25 26 B/P (MAP) 96/74 (81) 101/71 (81) 93/79 (84) Pulse Ox 93 94 94 94 O2 Delivery Nasal Cannula Nasal Cannula Nasal Cannula Nasal Cannula O2 Flow Rate 2.00 2.00 2.00 2.00 02/22/17 02/22/17 02/22/17 02/22/17 04:45 05:00 05:15 05:30 Pulse 93 91 86 92 Resp 12 18 22 22 B/P (MAP) 92/71 (78) 92/65 (74) 96/63 (74) 91/75 (80) Pulse Ox 93 96 93 95 O2 Delivery Nasal Cannula Nasal Cannula Nasal Cannula Nasal Cannula O2 Flow Rate 2.00 2.00 2.00 2.00 02/22/17 02/22/17 02/22/17 02/22/17 05:45 06:00 06:15 06:30 Pulse 75 80 82 87 Resp 14 15 18 15 B/P (MAP) 97/82 (87) 86/69 (75) 83/47 (59) 90/66 (74) Pulse Ox 92 93 94 95 O2 Delivery Nasal Cannula Nasal Cannula Nasal Cannula Nasal Cannula O2 Flow Rate 2.00 2.00 2.00 2.00 02/22/17 02/22/17 02/22/17 02/22/17 06:45 07:00 07:00 08:00 Pulse 89 82 82 Resp 14 25 B/P (MAP) 96/68 (77) 106/66 (79) Pulse Ox 95 95 O2 Delivery Nasal Cannula Nasal Cannula Nasal Cannula O2 Flow Rate 2.00 2.00 2.00 02/22/17 02/22/17 02/22/17 02/22/17 08:00 08:00 09:00 10:00 Temp 98.7 Pulse 100 102 105 Resp 27 20 26 B/P (MAP) 98/82 (87) 93/80 (84) 97/75 (82) Pulse Ox 94 95 93 O2 Delivery Nasal Cannula Nasal Cannula Nasal Cannula Nasal Cannula O2 Flow Rate 2.00 2.00 2.00 2.00 02/22/17 02/22/17 02/22/17 02/22/17 11:00 12:00 12:00 13:00 Temp 98.0 Pulse 106 98 Resp 13 B/P (MAP) 114/90 (98) Pulse Ox 95 O2 Delivery Nasal Cannula Nasal Cannula O2 Flow Rate 2.00 2.00 Capillary Refill : Less Than 3 Seconds Constitutional: AAO x 3 HEENT: PERRL Neck: No carotid bruit, carotid pulses are 2 + bilaterally Respiratory: No accessory muscle use, No respiratory distress, chest expansion is symmetric, chest is bilaterally symmetric, lungs clear to auscultation Cardiovascular: irregularly irregular, No JVD, S1 and S2 Gastrointestinal: No tender, soft, audible bowel sounds Rectal: deferred Extremities: no lower extremity edema bilateral Neurologic/Psychiatric: grossly intact, power is 5/5 both on sides Skin: No rash, No ulcerations Data Review Labs Laboratory Tests 02/22/17 01:15: White Blood Count 8.3, Red Blood Count 5.17, Hemoglobin 15.0, Hematocrit 47, Mean Corpuscular Volume 91, Mean Corpuscular Hemoglobin 29, Mean Corpuscular Hemoglobin Concent 32, Red Cell Distribution Width 12.6, Platelet Count 337, Mean Platelet Volume 10.2, Neutrophils (%) (Auto) 69, Lymphocytes (%) (Auto) 19 , Monocytes (%) (Auto) 8, Eosinophils (%) (Auto) 2, Basophils (%) (Auto) 1, Neutrophils # (Auto) 5.7, Lymphocytes # (Auto) 1.6, Monocytes # (Auto) 0.7, Eosinophils # (Auto) 0.2, Basophils # (Auto) 0.1, Prothrombin Time 13.6, INR Comment 1.0, Activated Partial Thromboplast Time 30, Sodium Level 141, Potassium Level 4.1, Chloride Level 103, Carbon Dioxide Level 25, Anion Gap 13, Blood Urea Nitrogen 18, Creatinine 1.11, Estimat Glomerular Filtration Rate > 60 , BUN/Creatinine Ratio 16, Glucose Level 110H, Calcium Level 9.5, Magnesium Level 2.1, Total Bilirubin 0.4, Aspartate Amino Transf (AST/SGOT) 22, Alanine Aminotransferase (ALT/SGPT) 37, Alkaline Phosphatase 80, Myoglobin 37.5, Troponin I < 0.30, Total Protein 7.5, Albumin 4.0 02/22/17 03:10: Urine Color YELLOW, Urine Clarity CLEAR, Urine pH 6, Urine Specific [place] 1.015L, Urine Protein NEGATIVE, Urine Glucose (UA) NEGATIVE, Urine Ketones NEGATIVE, Urine Nitrite NEGATIVE, Urine Bilirubin NEGATIVE, Urine Urobilinogen NORMAL, Urine Leukocyte Esterase NEGATIVE, Urine RBC (Auto) 2+H, Urine RBC 2-5H , Urine WBC NONE, Urine Squamous Epithelial Cells RARE, Urine Crystals NONE, Urine Bacteria NEGATIVE, Urine Casts NONE, Urine Mucus NEGATIVE, Urine Culture Indicated NO 02/22/17 05:03: Sodium Level 140, Potassium Level 4.5, Chloride Level 107, Carbon Dioxide Level 23, Anion Gap 10, Blood Urea Nitrogen 15, Creatinine 0.85, Estimat Glomerular Filtration Rate > 60, BUN/Creatinine Ratio 18, Glucose Level 102, Calcium Level 9.0, Magnesium Level 2.1, Phosphorus Level 3.8, Triglycerides Level 133, Cholesterol Level 167, LDL Cholesterol Direct 125, VLDL Cholesterol 27, HDL Cholesterol 29L 02/22/17 05:05: White Blood Count 7.2, Red Blood Count 4.82, Hemoglobin 14.2, Hematocrit 43, Mean Corpuscular Volume 90, Mean Corpuscular Hemoglobin 30, Mean Corpuscular Hemoglobin Concent 33, Red Cell Distribution Width 12.5, Platelet Count 307, Mean Platelet Volume 10.1, Neutrophils (%) (Auto) 72, Lymphocytes (%) (Auto) 18 , Monocytes (%) (Auto) 8, Eosinophils (%) (Auto) 2, Basophils (%) (Auto) 1, Neutrophils # (Auto) 5.2, Lymphocytes # (Auto) 1.3, Monocytes # (Auto) 0.6, Eosinophils # (Auto) 0.1, Basophils # (Auto) 0.0 02/22/17 07:09: Troponin I 0.85*H 02/22/17 13:10: Troponin I 1.63*H A/P-Cardiology Assessment/Admission Diagnosis NSTEMI New onset a-fib with RVR (first documented on 02-21-17) - rate currently controlled Echo of 02/22/17 shows LVEF 45-50%, mild MR, PASP 30-55 mmHg Right sided chest pain Sleep apnea syndrome (for which he has been non-compliant with tx for over a year) Chronic right shoulder pain d/t torn rotator cuff H/O bladder cancer with surgical treatment in 2009 H/O tobaccoism - quit in 2009 Elevated BMI of approx 38 Discussion and Recomendations * I had a detailed discussion with him regarding his CV issues * BB for vent rate control * Apixaban for stroke prophylaxis * BB and aspirin for treatment on NSTEMI * Not suitable for Plavix because is on apixaban and aspirin * Cath recommended, given evidence of NSTEMI and mild cm on echo * Sleep studies advised. He will pursue on an outpatient basis * Advised efforts at wgt loss * Advised complete avoidance of tobacco products * Further recs based on hosp course Clinical Quality Measures AMI/AHF: ASA po Prior to arrival: No DVT/VTE Risk/Contraindication: Risk Factor Score Per Nursin RFS Level Per Nursing on Admit: 3=High EVELIA CARMEN MD FACP FAC CCDS Feb 22, 2017 14:00
[2017-02-22] MEDS ORDERED: IBUPROFEN 800 MG (MOTRIN) TAB PO ONE ×2 (20:43→20:45)
[2017-02-22] MEDS: ATORVASTATIN 40 MG (LIPITOR) TABLET PO SCH (20:45)
[2017-02-23] VITALS (22 sets, daily range): BP systolic 96–128; BP diastolic 69–96
[2017-02-23] MEDS: NS IV 1000 ML 1,000 ML IV SCH ×2 (02:21→07:59)
[2017-02-23 05:07] LABS: HEMOGLOBIN 13.8 G/DL (13.3-17.7); MEAN PLATELET VOLUME 9.9 FL (7.4-10.4); RED BLOOD COUNT 4.75 10^6/uL (4.35-5.85); RED CELL DISTRIBUTION WIDTH 12.7 % (10.0-14.5); WHITE BLOOD COUNT 5.7 10^3/uL (4.3-11.0)
[2017-02-23 05:36] LABS: INR 1.1 (0.8-1.4); PROTHROMBIN TIME PATIENT 14.3 SEC (12.2-14.7)
[2017-02-23 05:48] LABS: BUN/CREATININE RATIO 17; CALCIUM 8.7 MG/DL (8.5-10.1); CARBON DIOXIDE 24 MMOL/L (21-32); CHLORIDE 109 MMOL/L (98-107); CHOLESTEROL 168 MG/DL (< 200); CREATININE SERUM 0.83 MG/DL (0.60-1.30); GFR ESTIMATED > 60; GLUCOSE 100 MG/DL (70-105); HDL CHOLESTEROL 27 MG/DL (40-60); MAGNESIUM 1.9 MG/DL (1.8-2.4); PHOSPHORUS 3.7 MG/DL (2.3-4.7); POTASSIUM 4.6 MMOL/L (3.6-5.0); SODIUM 141 MMOL/L (135-145); TRIGLYCERIDES 143 MG/DL (<150); VLDL CHOLESTEROL 29 MG/DL (5-40)
[2017-02-23] MEDS ORDERED: NS IV 1000 ML 0 ML ONE (06:31)
[2017-02-23] MEDS ORDERED: LIDOCAINE 1% INJ 50 ML (XYLOCAINE) VIAL ONE (06:31)
[2017-02-23] MEDS ORDERED: HEParin (CATH LAB) 2,000 ML IV ONE (06:31)
[2017-02-23] MEDS ORDERED: NS IV 1000 ML 1,000 ML IV SCH ×2 (07:00→09:23)
--- NOTE | 2017-02-23 07:05 | Diagnostic Imaging Report ---
Indication: Chest pain Portable chest 5:18 AM Heart size and pulmonary vascularity are upper limits of normal. Lungs are clear. There are no effusions or pneumothoraces. Impression: No acute abnormalities in the chest Dictated by: Dictated on workstation # [id number]
[2017-02-23] MEDS: ASPIRIN 81 MG CHEW (CHILDREN'S ASA) PO SCH (07:59)
[2017-02-23] MEDS ORDERED: diphenhydrAMINE 50 MG/ML INJ (BENADRYL) ONE (08:13)
[2017-02-23] MEDS ORDERED: fentaNYL INJECTION 100 MCG/2 ML AMP ONE (08:13)
[2017-02-23] MEDS ORDERED: MIDAZOLAM 5 MG/5 ML (VERSED) VIAL ONE (08:13)
[2017-02-23] MEDS ORDERED: IBUPROFEN 800 MG (MOTRIN) TAB PO SCH (09:00)
--- NOTE | 2017-02-23 09:23 | Cardiac Procedure Note-CS/ASA ---
Pre-Procedure Note Pre-Op Procedure Note H&P Reviewed The H&P was reviewed, patient examined and no changes noted. Date H&P Reviewed: Feb 23, 2017 Time H&P Reviewed: 08:40 Conscious Sedation Pre-Proced Time Reviewed: 08:40 ASA Class: 3 Airway Mallampati Classification: ([place] appropriate class) I. II. III, IV Lungs Heart ASA score ASA 1: a normal healthy patient ASA 2: a patient with a mild systemic disease (mid diabetes, controlled hypertension, obesity ASA 3: a patient with a severe systemic disease that limits activity (angina , COPD, prior Myocardial infarction) ASA 4: a patient with an incapacitating disease that is a constant threat to life (CHF, renal failure) ASA 5: a moribund patient not expected to survive 24 hrs. (ruptured aneurysm) ASA 6: a declared brain patient whose organs are being harvested. For emergent operations, add the letter E after the classification Grade 3 Sedation Plan: Analgesia, Amnesia, Plan communicated to team members, Discussed options with patient/fam, Discussed risks with patient/fam Note The patient is an appropriate candidate to undergo the planned procedure, sedation, and anesthesia. The patient immediately re-assessed prior to indication. EVELIA CARMEN MD FACP FAC CCDS Feb 23, 2017 09:23
[2017-02-23] MEDS ORDERED: DIGOXIN 0.25 MG/ML (LANOXIN) 2 ML AMP IV NR (09:30)
[2017-02-23] MEDS ORDERED: PATIENT MAY USE OWN MEDS, ALL PO SCH (09:30)
[2017-02-23] MEDS ORDERED: meTOproloL SUCCINATE 50 MG (TOPROL XL) TAB PO NR (09:30)
[2017-02-23] MEDS ORDERED: SPIRONOLACTONE 25 MG (ALDACTONE) TAB PO NR (09:30)
[2017-02-23] MEDS ORDERED: FUROSEMIDE 20 MG (LASIX) TAB PO NR (09:30)
--- NOTE | 2017-02-23 09:35 | Progress Note-Cardiology ---
Cardiology SOAP Progress Note Subjective: Still short of breath and has gen malaise. No cp or syncope Objective: I&O/Vital Signs Vital Sign - Last 12Hours 02/22/17 02/22/17 02/23/17 02/23/17 22:00 23:00 00:00 00:00 Temp 97.1 Pulse 117 105 95 Resp 26 20 37 B/P (MAP) 108/74 (85) 101/72 (82) 108/75 (86) Pulse Ox 92 93 92 O2 Delivery Nasal Cannula Nasal Cannula Nasal Cannula Nasal Cannula O2 Flow Rate 1.00 1.00 1.00 1.00 02/23/17 02/23/17 02/23/17 02/23/17 00:25 00:25 00:48 01:00 Pulse 94 Pulse Ox 92 O2 Delivery Nasal Cannula Nasal Cannula OxyMask O2 Flow Rate 2.00 2.00 5.00 02/23/17 02/23/17 02/23/17 02/23/17 01:00 02:00 03:00 04:00 Temp 97.9 Pulse 106 92 101 100 Resp 16 21 16 17 B/P (MAP) 101/82 (88) 96/76 (83) 111/87 (95) 128/96 (107) Pulse Ox 97 97 97 98 O2 Delivery OxyMask OxyMask OxyMask OxyMask O2 Flow Rate 5.00 5.00 5.00 5.00 02/23/17 02/23/17 02/23/17 02/23/17 04:00 05:00 06:00 07:00 Pulse 96 96 140 Resp 17 16 30 B/P (MAP) 100/79 (86) 116/86 (96) 119/89 (99) Pulse Ox 95 94 95 O2 Delivery OxyMask OxyMask Nasal Cannula Nasal Cannula O2 Flow Rate 5.00 5.00 2.00 2.00 02/23/17 02/23/17 02/23/17 07:02 07:50 08:00 Temp 98.6 Pulse 121 124 Resp 31 B/P (MAP) 127/91 (103) Pulse Ox 95 O2 Delivery Nasal Cannula O2 Flow Rate 2.00 Intake and Output 02/22/17 23:59 Intake Total 2776 ml Output Total 1150 ml Balance 1626 ml Weight (Pounds): 280 Weight (Ounces): 1.6 Weight (Calculated Kilograms): [id number] Constitutional: AAO x 3 Respiratory: No accessory muscle use, No respiratory distress, chest expansion is symmetric, chest is bilaterally symmetric, other (fair to bood bilat air entry but diminished a the bases) Cardiovascular: irregularly irregular, No JVD, S1 and S2 Gastrointestional: No tender, soft, audible bowel sounds Extremities: no lower extremity edema bilateral Neurologic/Psychiatric: grossly intact, power is 5/5 both on sides Skin: No rash, No ulcerations Results/Procedures: Labs Laboratory Tests 02/22/17 13:10: Troponin I 1.63*H 02/23/17 04:55: White Blood Count 5.7, Red Blood Count 4.75, Hemoglobin 13.8, Hematocrit 44, Mean Corpuscular Volume 92, Mean Corpuscular Hemoglobin 29, Mean Corpuscular Hemoglobin Concent 32, Red Cell Distribution Width 12.7, Platelet Count 275, Mean Platelet Volume 9.9, Prothrombin Time 14.3, INR Comment 1.1, Activated Partial Thromboplast Time 32, Sodium Level 141, Potassium Level 4.6, Chloride Level 109H, Carbon Dioxide Level 24, Anion Gap 8, Blood Urea Nitrogen 14, Creatinine 0.83, Estimat Glomerular Filtration Rate > 60, BUN/Creatinine Ratio 17, Glucose Level 100, Calcium Level 8.7, Phosphorus Level 3.7, Magnesium Level 1.9, Triglycerides Level 143, Cholesterol Level 168, LDL Cholesterol Direct 123 , VLDL Cholesterol 29, HDL Cholesterol 27L, Thyroid Stimulating Hormone (TSH) 0.02L Laboratory Tests 02/22/17 01:15 02/22/17 05:03 02/22/17 05:05 02/23/17 04:55 A/P: Assessment: Elevated troponin, probable due to elevated heart rate. 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 He will pursue on an outpatient basis * Advised efforts at wgt loss * Advised complete avoidance of tobacco products * Monitor labs Clinical Quality Measures AMI/AHF: ASA po Prior to arrival: EVELIA Cobian MD FACP FACC CCDS Feb 23, 2017 09:34
--- NOTE | 2017-02-23 09:55 | CARDIAC CATHETERIZATION ---
DATE OF SERVICE: 02/23/2017 The patient is a 61-year-old man who was admitted with palpitations and shortness of breath. He was found to have atrial fibrillation with rapid ventricular rate. Troponin was also found to be elevated, suggesting acute non-ST elevation myocardial infarction. Cardiac catheterization was carried out today after having obtained informed consent. PROCEDURE: He is brought to the cardiac catheterization laboratory in a fasting state. Right groin was prepared and draped in the usual sterile fashion. Lidocaine 1% local anesthesia. Modified Seldinger technique was used to advance a 5-Armenian sheath in the right femoral artery. A 5-Armenian JL4 catheter for left coronary angiography, a 5-Armenian JR4 catheter was used for right coronary angiography. A 5-Armenian pigtail catheter was used for left heart catheterization and left ventricular angiography. The pigtail catheter was pulled back to the aortic arch and aortic arch angiography was performed. HEMODYNAMICS: Left ventricular end-diastolic pressure following coronary angiography was 20 mmHg. There was no significant pressure gradient on pullback across the aortic valve. Ascending aortic pressure was 98/75 with a mean of 41 mmHg. LEFT VENTRICULAR ANGIOGRAPHY: Left ventricular angiography was carried out in the right anterior oblique projection. Left ventricular ejection fraction is difficult to assess because the patient was in a rapid rate at the time of the injection. He has a moderate global hypokinesis, and ejection fraction is estimated to be 35%. There is mild mitral regurgitation. AORTIC ARCH ANGIOGRAPHY: Aortic arch angiography did not indicate any thoracic aortic aneurysm or dissection. There is mild calcification of the neck arteries. There does not appear to be significant obstructive disease, to the extent visualized, involving the neck arteries. CORONARY ANGIOGRAPHY: The left main coronary artery is free of significant disease. Left anterior descending and left circumflex arteries have mild ostial stenoses (20% to 30%). There does not appear to be significant obstructive disease in the left anterior descending, left circumflex, or right coronary arteries. Right coronary artery is dominant. CONCLUSIONS: 1. Angiographically mild coronary artery disease. 2. Impaired global left ventricular systolic function with global hypokinesis of the left ventricle, ejection fraction of approximately 35%. 3. Elevated left ventricular end-diastolic pressure. 4. Mild mitral regurgitation. DISCUSSION AND RECOMMENDATIONS: Based on results of the study, it appears appropriate to continue a conservative approach. 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 Job ID: [id number] DocumentID: [id number] Dictated Date: 02/23/2017 09:11:47 Patient Portal Representative Date: 02/23/2017 09:54:35 Dictated By: EVELIA CARMEN MD, MA, FACP, FACC,
[2017-02-23] MEDS: APIXABAN 5 MG (ELIQUIS) TABLET PO SCH ×2 (10:58→21:09)
--- NOTE | 2017-02-23 20:59 | Progress Note (SOAP) ---
Subjective Subjective/Events-last exam Recently returned from cardiac cath, is drowsy but denies concerns. Review of Systems Date Seen by Provider: Feb 23, 2017 Time Seen by Provider: 09:55 Objective Exam Last Set of Vital Signs Vital Signs Date Time Temp Pulse Resp B/P (MAP) Pulse Ox O2 Delivery O2 Flow Rate FiO2 02/23/17 20:00 100.4 105 104/69 (81) 92 Nasal Cannula 2.00 02/23/17 15:45 18 02/22/17 14:25 28 Capillary Refill : Less Than 3 Seconds I&O Intake and Output 02/23/17 00:00 Intake Total 4876 ml Output Total 1775 ml Balance 3101 ml Intake Oral 786 ml IV Total 4090 ml Output Urine Total 1775 ml Daily Weight Change No General: Other (drowsy but arousable) Lungs: Clear to Auscultation, Normal Air Movement Heart: Other (irregularly irregular) Results/Procedures Lab Laboratory Tests 02/23/17 04:55: White Blood Count 5.7, Red Blood Count 4.75, Hemoglobin 13.8, Hematocrit 44, Mean Corpuscular Volume 92, Mean Corpuscular Hemoglobin 29, Mean Corpuscular Hemoglobin Concent 32, Red Cell Distribution Width 12.7, Platelet Count 275, Mean Platelet Volume 9.9, Prothrombin Time 14.3, INR Comment 1.1, Activated Partial Thromboplast Time 32, Sodium Level 141, Potassium Level 4.6, Chloride Level 109H, Carbon Dioxide Level 24, Anion Gap 8, Blood Urea Nitrogen 14, Creatinine 0.83, Estimat Glomerular Filtration Rate > 60, BUN/Creatinine Ratio 17, Glucose Level 100, Calcium Level 8.7, Phosphorus Level 3.7, Magnesium Level 1.9, Triglycerides Level 143, Cholesterol Level 168, LDL Cholesterol Direct 123 , VLDL Cholesterol 29, HDL Cholesterol 27L, Thyroid Stimulating Hormone (TSH) 0.02L, Free Thyroxine 0.83 Microbiology 02/22/17 MRSA Screen - Final, Complete MRSA not isolated Radiology NAME: KEATON MOODY MED REC#: [id number] PT STATUS: ADM IN : 1955 PHYSICIAN: MERA PATEL MD ADMIT DATE: 02/22/17/ICU Draft Date of Exam:02/22/17 CHEST PA/LAT (2 VIEW) INDICATION: Chest pain COMPARISON: 04/25/2016 FINDINGS: The heart size is mildly enlarged. There is some distention and prominence of the upper lobe pulmonary venous structures as well as faint peripheral Arlen B lines. Findings suggest mild failure or sequelae of hypervolemia. IMPRESSION: Changes suggest mild active failure pattern or hypervolemia with probable venous hypertension and mild interstitial edema. No pleural fluid however. Dictated on workstation # [id number] Dict: 02/22/17 0758 Trans: 02/22/17 0801 [facility] [id number] Interpreted by: MYRON HASSAN Electronically signed by: Assessment/Plan Assessment/Plan (1) Atrial fibrillation with RVR Status: Acute Assessment & Plan: Cardiology consulted, started on cardizem drip initially, now on metoprolol with fair rate control but relatively low BP. -Check TSH, echo, other recommendations per Cardiology -Known sleep apnea with no CPAP for 2 years, will attempt to get new machine or old machine fixed, social work consulted 02/23- TSH low, check free T4, medications for a fib per Cardiology. Cath this am. (2) Elevated troponin Status: Acute Assessment & Plan: Management per Cardiology, cath this am (3) Sleep apnea Status: Chronic Assessment & Plan: Will work on getting working machine for home Qualifiers: Qualified Codes: G47.33 - Obstructive sleep apnea (adult) (pediatric) (4) Asthma Status: Chronic Assessment & Plan: Suspect possible COPD given smoking history, resume home albuterol as needed, RT protocol Clinical Quality Measures AMI/AHF: ASA po Prior to arrival: No DVT/VTE Risk/Contraindication: Risk Factor Score Per Nursin RFS Level Per Nursing on Admit: 3=High TYREL SAMUEL MD Feb 23, 2017 20:59
[2017-02-23] MEDS: ATORVASTATIN 40 MG (LIPITOR) TABLET PO SCH (21:09)
[2017-02-23] MEDS ORDERED: IBUPROFEN 800 MG (MOTRIN) TAB PO ONE (21:30)
[2017-02-24] VITALS: BP 111/86
[2017-02-24 04:00] VITALS: BP 117/92
[2017-02-24 05:05] LABS: BASOPHILS % (AUTO) 1 % (0-10); EOSINOPHILS # (AUTO) 0.2 10^3/uL (0.0-0.3); EOSINOPHILS % (AUTO) 4 % (0-10); HEMATOCRIT 39 % (40-54); HEMOGLOBIN 14.4 G/DL (13.3-17.7); LYMPHOCYTES # (AUTO) 1.3 X 10^3 (1.0-4.0); LYMPHOCYTES % (AUTO) 22 % (12-44); MEAN CORPUSCULAR HEMOGLOBIN 29 PG (25-34); MEAN CORPUSCULAR HGB CONC 37 G/DL (32-36); MEAN CORPUSCULAR VOLUME 80 FL (80-99); MEAN PLATELET VOLUME 9.3 FL (7.4-10.4); MONOCYTES # (AUTO) 0.6 X 10^3 (0.0-1.0); MONOCYTES % (AUTO) 9 % (0-12); NEUTROPHILS # (AUTO) 3.9 X 10^3 (1.8-7.8); NEUTROPHILS % (AUTO) 64 % (42-75); PLATELET COUNT 285 10^3/uL (130-400); RED BLOOD COUNT 4.93 10^6/uL (4.35-5.85); RED CELL DISTRIBUTION WIDTH 12.3 % (10.0-14.5)
[2017-02-24 05:25] LABS: BUN/CREATININE RATIO 14; CALCIUM 8.9 MG/DL (8.5-10.1); CARBON DIOXIDE 25 MMOL/L (21-32); CHLORIDE 103 MMOL/L (98-107); CREATININE SERUM 0.92 MG/DL (0.60-1.30); GFR ESTIMATED > 60; GLUCOSE 91 MG/DL (70-105); MAGNESIUM 1.9 MG/DL (1.8-2.4); POTASSIUM 4.1 MMOL/L (3.6-5.0); SODIUM 140 MMOL/L (135-145)
[2017-02-24 05:39] LABS: DIGOXIN < 0.30 NG/ML (0.80-2.00)
[2017-02-24 08:00] VITALS: BP 116/78
[2017-02-24] MEDS: ASPIRIN 81 MG CHEW (CHILDREN'S ASA) PO SCH (08:38)
[2017-02-24] MEDS: APIXABAN 5 MG (ELIQUIS) TABLET PO SCH (08:38)
[2017-02-24] MEDS ORDERED: SPIRONOLACTONE 25 MG (ALDACTONE) TAB PO SCH (09:00)
[2017-02-24] MEDS ORDERED: FUROSEMIDE 20 MG (LASIX) TAB PO SCH (09:00)
[2017-02-24] MEDS ORDERED: DIGOXIN 0.25 MG (LANOXIN) TAB PO SCH (09:00)
[2017-02-24] MEDS ORDERED: meTOproloL SUCCINATE 50 MG (TOPROL XL) TAB PO SCH (09:00)
[2017-02-24] MEDS ORDERED: ATOR40TA PO (09:33)
[2017-02-24] MEDS ORDERED: APIX5TAB PO (09:33)
[2017-02-24] MEDS ORDERED: FURO20TA4 PO (09:33)
[2017-02-24] MEDS ORDERED: METO-370 PO (09:33)
[2017-02-24] MEDS ORDERED: ASPI-999 PO (09:33)
[2017-02-24] MEDS ORDERED: DIGO250T15 PO (09:33)
[2017-02-24] MEDS ORDERED: LISI2.5T PO (09:33)
[2017-02-24] MEDS ORDERED: SPIR25TA3 PO (09:33)
--- NOTE | 2017-02-24 09:39 | Progress Note-Cardiology ---
Cardiology SOAP Progress Note Subjective: Sitting up in bed. States he feels good this morning. No c/o right groin discomfort. No c/o CP, palpitations, or dyspnea. Objective: I&O/Vital Signs Vital Sign - Last 12Hours 02/24/17 02/24/17 02/24/17 02/24/17 00:00 00:00 01:00 04:00 Temp 98.3 98.5 Pulse 91 85 88 B/P (MAP) 111/86 (94) 117/92 (100) Pulse Ox 93 93 O2 Delivery Nasal Cannula Nasal Cannula Nasal Cannula O2 Flow Rate 2.00 2.00 2.00 02/24/17 02/24/17 02/24/17 02/24/17 04:00 07:00 07:25 08:00 Temp 98.2 Pulse 95 87 Resp 20 B/P (MAP) 116/78 (91) Pulse Ox 94 93 O2 Delivery Nasal Cannula Nasal Cannula Room Air O2 Flow Rate 2.00 2.00 02/24/17 08:00 O2 Delivery Room Air Intake and Output 02/24/17 00:00 Intake Total 1460 ml Output Total 4075 ml Balance -2615 ml Weight (Pounds): 278 Weight (Ounces): 1.0 Weight (Calculated Kilograms): 126.941690 Side: right Groin site without hematoma: Yes Condition: DP/PT pulses palpable, extremity w/d/p Bruising: mild bruising Constitutional: AAO x 3 Respiratory: No accessory muscle use, No respiratory distress, chest expansion is symmetric, chest is bilaterally symmetric, other (fair to bood bilat air entry but diminished a the bases) Cardiovascular: irregularly irregular, No JVD, S1 and S2 Gastrointestional: No tender, soft, audible bowel sounds Extremities: no lower extremity edema bilateral Neurologic/Psychiatric: grossly intact, power is 5/5 both on sides Skin: No rash, No ulcerations Results/Procedures: Labs Laboratory Tests 02/24/17 04:45: White Blood Count 6.0, Red Blood Count 4.93, Hemoglobin 14.4, Hematocrit 39L, Mean Corpuscular Volume 80, Mean Corpuscular Hemoglobin 29, Mean Corpuscular Hemoglobin Concent 37H, Red Cell Distribution Width 12.3, Platelet Count 285, Mean Platelet Volume 9.3, Neutrophils (%) (Auto) 64, Lymphocytes (%) (Auto) 22, Monocytes (%) (Auto) 9, Eosinophils (%) (Auto) 4, Basophils (%) (Auto) 1, Neutrophils # (Auto) 3.9, Lymphocytes # (Auto) 1.3, Monocytes # (Auto) 0.6, Eosinophils # (Auto) 0.2, Basophils # (Auto) 0.0, Sodium Level 140, Potassium Level 4.1, Chloride Level 103, Carbon Dioxide Level 25, Anion Gap 12, Blood Urea Nitrogen 13, Creatinine 0.92, Estimat Glomerular Filtration Rate > 60, BUN/ Creatinine Ratio 14, Glucose Level 91, Calcium Level 8.9, Magnesium Level 1.9, Digoxin Level < 0.30L Microbiology 02/22/17 MRSA Screen - Final, Complete MRSA not isolated A/P: Assessment: Elevated troponin, probable due to elevated heart rate. No distinct evidence of MS, based on card cath of 02/23/17 (see below) Card cath of 02/23/17: Mild CAD (mild ostial disease of LCX and LAD), no obstructive CAD, global hypokinesis, EF approx 35% (eval impaired by a rapid vent rate), mild MR, elevated LVEDP New onset a-fib with RVR (first documented on 02-21-17) - rate currently controlled Echo of 02/22/17 shows LVEF 45-50%, mild MR, PASP 30-55 mmHg Ac systolic and diastolic CHF due to non-ischemic cardiomyopathy Sleep apnea syndrome (for which he has been non-compliant with tx for over a year) Chronic right shoulder pain d/t torn rotator cuff H/o bladder cancer with surgical treatment in 2009 H/o tobaccoism - quit in 2009 Elevated BMI of approx 38 Plan: * Dr. Jama has had a detailed discussion with him regarding his CV issues * Continue BB for vent rate control * Continue apixaban for stroke prophylaxis * Continue DARIO-inhib for cardiomyopathy * Continue dig for better rate control * Continue furosemide and spironolactone for CHF control * Sleep studies advised. He will pursue on an outpatient basis. We will refer him to Dr. Lora * Advised efforts at wgt loss * Advised complete avoidance of tobacco products * Lab next week * Out pt f/u in a week * Advised compliance with medications and f/u Physician Assessment Physician Assessment Feels better today. Denies cp. Shortness of breath improved. No cp or palp or syncope. Wishes to go home Lungs: fair air entry, diminished at the bases Cor: reg Ext: no c/c/e A&R * As documented in our note above that I updated (italics) and as noted below * Continue current card regimen * I spoke with him and discussed results of cardiac w/u and our CV treatment plan * Have advised effort at wgt loss * Have advised oupt f/u * Risk factor mod discussed and questions answered Clinical Quality Measures AMI/AHF: ASA po Prior to arrival: DI Hammond CARDIOVASCULAR OPERATING ROOM NURSE Feb 24, 2017 09:39 EVELIA JAMA MD FACP FAC CCDS Feb 24, 2017 10:32
--- NOTE | 2017-02-24 11:43 | Discharge Summary ---
Diagnosis/Chief Complaint Date of Admission Feb 22, 2017 at 1:45 am Date of Discharge Feb 24, 2017 Admission Diagnosis Admission Diagnosis (1) Atrial fibrillation with RVR (2) Elevated troponin (3) Sleep apnea Qualifiers: Qualified Codes: G47.33 - Obstructive sleep apnea (adult) (pediatric) (4) Asthma Discharge Diagnosis (1) Atrial fibrillation with RVR Status: Acute Assessment & Plan: Cardiology consulted, started on cardizem drip initially, now on metoprolol with fair rate control but relatively low BP. -Check TSH, echo, other recommendations per Cardiology -Known sleep apnea with no CPAP for 2 years, will attempt to get new machine or old machine fixed, social work consulted 02/23- TSH low, check free T4, medications for a fib per Cardiology. Cath this am. 02/24 free T4 normal, digoxin added for a fib per Cardiology. Continue apixaban. Cath with non-obstructive disease and EF 35%. (2) Elevated troponin Status: Acute Assessment & Plan: Management per Cardiology, cath done with results noted above. (3) Sleep apnea Status: Chronic Assessment & Plan: Will work on getting working machine for home- plan to try have him see Dr. Lora outpatient with his VC assistance Qualifiers: Qualified Codes: G47.33 - Obstructive sleep apnea (adult) (pediatric) (4) Asthma Status: Chronic Assessment & Plan: Suspect possible COPD given smoking history, resume home albuterol as needed, RT protocol Chief Complaint/HPI Chief Complaint/HPI 61 yo male presented to ER with onset of right sided chest pain about 30 minutes before arrival. He had pain in his right elbow while sitting in his recliner which progressed up his arm, through his back and chest and became severe. He felt slightly short of breath, but denies any other symptoms. Discharge Summary-Simple/Stand Procedures Cardiac catheterization Consultations Dr. Jama (Cardiology) Discharge Physical Examination Allergies: Coded Allergies: clindamycin (Verified Allergy, Unknown, 04/25/16) Uncoded Allergies: CEYANE PEPPER (Allergy, Unknown, 04/25/16) ENDOMETHICIN (Allergy, Unknown, 04/25/16) Vitals & I&Os Vital Sign - Last 12Hours Date Time Temp Pulse Resp B/P (MAP) Pulse Ox O2 Delivery O2 Flow Rate FiO2 02/24/17 08:00 Room Air 02/24/17 08:00 98.2 87 20 116/78 (91) 93 02/24/17 07:25 2.00 02/22/17 14:25 28 Intake and Output 02/24/17 00:00 Intake Total 1460 ml Output Total 4075 ml Balance -2615 ml General Appearance: Alert, No Acute Distress Respiratory: Clear to Auscultation Cardiovascular: Other (irregularly irregular) Abdominal: Normal Bowel Sounds, Soft Neuro: Normal Speech Psych/Mental Status: Mental Status NL Hospital Course See final discharge diagnosis. Labs Laboratory Tests Test 02/22/17 13:10 02/23/17 04:55 02/24/17 04:45 Range/Units Troponin I 1.63 *H <0.30 NG/ML White Blood Count 5.7 6.0 4.3-11.0 10^3/uL Red Blood Count 4.75 4.93 4.35-5.85 10^6/uL Hemoglobin 13.8 14.4 13.3-17.7 G/DL Hematocrit 44 39 L 40-54 % Mean Corpuscular Volume 92 80 80-99 FL Mean Corpuscular Hemoglobin 29 29 25-34 PG Mean Corpuscular Hemoglobin Concent 32 37 H 32-36 G/DL Red Cell Distribution Width 12.7 12.3 10.0-14.5 % Platelet Count 275 285 130-400 10^3/uL Mean Platelet Volume 9.9 9.3 7.4-10.4 FL Prothrombin Time 14.3 12.2-14.7 SEC INR Comment 1.1 0.8-1.4 Activated Partial Thromboplast Time 32 24-35 SEC Sodium Level 141 140 135-145 MMOL/L Potassium Level 4.6 4.1 3.6-5.0 MMOL/L Chloride Level 109 H 103 98-107 MMOL/L Carbon Dioxide Level 24 25 21-32 MMOL/L Anion Gap 8 12 5-14 MMOL/L Blood Urea Nitrogen 14 13 7-18 MG/DL Creatinine 0.83 0.92 0.60-1.30 MG/DL Estimat Glomerular Filtration Rate > 60 > 60 BUN/Creatinine Ratio 17 14 Glucose Level 100 91 70-105 MG/DL Calcium Level 8.7 8.9 8.5-10.1 MG/DL Phosphorus Level 3.7 2.3-4.7 MG/DL Magnesium Level 1.9 1.9 1.8-2.4 MG/DL Triglycerides Level 143 <150 MG/DL Cholesterol Level 168 < 200 MG/DL LDL Cholesterol Direct 123 1-129 MG/DL VLDL Cholesterol 29 5-40 MG/DL HDL Cholesterol 27 L 40-60 MG/DL Thyroid Stimulating Hormone (TSH) 0.02 L 0.35-4.94 UIU/ML Free Thyroxine 0.83 0.70-1.48 NG/DL Neutrophils (%) (Auto) 64 42-75 % Lymphocytes (%) (Auto) 22 12-44 % Monocytes (%) (Auto) 9 0-12 % Eosinophils (%) (Auto) 4 0-10 % Basophils (%) (Auto) 1 0-10 % Neutrophils # (Auto) 3.9 1.8-7.8 X 10^3 Lymphocytes # (Auto) 1.3 1.0-4.0 X 10^3 Monocytes # (Auto) 0.6 0.0-1.0 X 10^3 Eosinophils # (Auto) 0.2 0.0-0.3 10^3/uL Basophils # (Auto) 0.0 0.0-0.1 10^3/uL Digoxin Level < 0.30 L 0.80-2.00 NG/ML Radiology Reviewed NAME: KEATON MOODY MED REC#: [id number] PT STATUS: ADM IN : 1955 PHYSICIAN: MERA PATEL MD ADMIT DATE: 02/22/17/ICU Draft Date of Exam:02/22/17 CHEST PA/LAT (2 VIEW) INDICATION: Chest pain COMPARISON: 04/25/2016 FINDINGS: The heart size is mildly enlarged. There is some distention and prominence of the upper lobe pulmonary venous structures as well as faint peripheral Arlen B lines. Findings suggest mild failure or sequelae of hypervolemia. IMPRESSION: Changes suggest mild active failure pattern or hypervolemia with probable venous hypertension and mild interstitial edema. No pleural fluid however. Dictated on workstation # [id number] Dict: 02/22/17 0758 Trans: 02/22/17 0801 [facility] [id number] Interpreted by: MYRON HASSAN Electronically signed by: Discharge Instructions to patient/family Please see electronic discharge instructions given to patient. Discharge Medications Reviewed and agree with Discharge Medication list on patient's Discharge Instruction sheet Clinical Quality Measures AMI/AHF: ASA po Prior to arrival: No DVT/VTE Risk/Contraindication: Risk Factor Score Per Nursin RFS Level Per Nursing on Admit: 3=High Copy Copies To 1: VICK FRANK MD,TYREL Munoz MD Feb 24, 2017 11:43
--- NOTE | 2017-02-24 11:43 | Discharge Instructions ---
Discharge [facility] Discharge Medications New, Converted or Re-Newed RX: Transmitted to Pharmacy New Medications: Lisinopril (Lisinopril) 2.5 Mg Tablet 2.5 MG PO DAILY, #30 TAB Apixaban (Eliquis) 5 Mg Tablet 5 MG PO 1000,2200, #60 TAB 5 Refills Aspirin (Aspirin) 81 Mg Tab.chew 81 MG PO DAILY, #120 TAB 5 Refills Atorvastatin Calcium (Lipitor) 40 Mg Tablet 40 MG PO HS, #30 TAB 5 Refills Digoxin (Digox) 250 Mcg Tablet 0.25 MG PO DAILY, #30 TAB 5 Refills Furosemide (Furosemide) 20 Mg Tablet 20 MG PO DAILY, #30 TAB 5 Refills Metoprolol Succinate (Metoprolol Succinate) 50 Mg Tab.er.24h 50 MG PO DAILY, #30 TAB 5 Refills Spironolactone (Spironolactone) 25 Mg Tablet 25 MG PO DAILY, #30 TAB 5 Refills Continued Medications: Albuterol Sulfate (Proventil Hfa) 6.7 Gm Hfa.aer.ad 2 PUFF IH Q6H PRN for SHORTNESS OF BREATH, EACH Menthol (Biofreeze) 118 Ml Gel..ml. TP TID PRN for JOINT PAIN, TUBE Discontinued Medications: Ibuprofen (Ibuprofen) 800 Mg Tablet 800 MG PO TID PRN for PAIN-MILD, TAB Patient Instructions Goal/Follow Up Appt: Follow up with Dr. Frank on 03/07 at 1:20 pm. Return to The [facility] For: Fever, chest pain, racing heart Activity & Diet Discharge Diet: Cardiac Diet Activity as Tolerated: Yes Copy Copies To 1: VICK FRANK MD, BETHANY N MD Feb 24, 2017 11:43 am
[2017-02-24 12:00] VITALS: BP 122/80
== END 2017-02-24 13:30 | disposition home or self-care (01) | DRG 286 ==
LOC: EDUNIT# 01:06 → ER 01:08 → ICU 01:45
PROVIDERS: ADMIT Family Medicine; ATTEND Family Medicine
PROC: 4A023N7 Measurement of Cardiac Sampling and Pressure, Left Heart, Percutaneous Approach (ICD-10-PCS; principal; 2017-02-23)
PROC: B2151ZZ Fluoroscopy of Left Heart using Low Osmolar Contrast (ICD-10-PCS; 2017-02-23)
PROC: B2111ZZ Fluoroscopy of Multiple Coronary Arteries using Low Osmolar Contrast (ICD-10-PCS; 2017-02-23)
PROC: B3101ZZ Fluoroscopy of Thoracic Aorta using Low Osmolar Contrast (ICD-10-PCS; 2017-02-23)
DX: I48.91 Unspecified atrial fibrillation (principal); I50.41 Acute combined systolic (congestive) and diastolic (congestive) heart failure; I42.9 Cardiomyopathy, unspecified; I25.10 Atherosclerotic heart disease of native coronary artery without angina pectoris; G47.33 Obstructive sleep apnea (adult) (pediatric); J45.909 Unspecified asthma, uncomplicated; Z87.891 Personal history of nicotine dependence; Z85.51 Personal history of malignant neoplasm of bladder; Z91.19 Patient's noncompliance with other medical treatment and regimen; Z68.38 Body mass index [BMI] 38.0-38.9, adult; M75.101 Unspecified rotator cuff tear or rupture of right shoulder, not specified as traumatic; I34.0 Nonrheumatic mitral (valve) insufficiency
CPT/HCPCS: 36221; 36415; 71045; 71046; 80048; 80053; 80061; 80162; 81000; 83735; 83874; 84100; 84439; 84443; 84484; 85025; 85027; 85610; 85730; 87081; 93005; 93041; 93306; 93458; 94640; 94664; 96361; 96365; 96375

== ENCOUNTER → 2017-02-28 | Outpatient (CLI) | payer SELFPAY ==
[~2017-02-28] MED LIST changes: +APIX5TAB PO; +ASPI-999 PO; +ATOR40TA PO; +DIGO250T15 PO; +FURO20TA4 PO; +LISI2.5T PO; +MENT118G TP; +METO-370 PO; +RT-ALBUINH IH; +SPIR25TA3 PO
[2017-02-28 11:16] LABS: BUN/CREATININE RATIO 19; CARBON DIOXIDE 25 MMOL/L (21-32); CHLORIDE 103 MMOL/L (98-107); CREATININE SERUM 1.02 MG/DL (0.60-1.30); GFR ESTIMATED > 60; GLUCOSE 101 MG/DL (70-105); POTASSIUM 4.2 MMOL/L (3.6-5.0); SODIUM 139 MMOL/L (135-145)
[2017-02-28 11:23] LABS: DIGOXIN 1.61 NG/ML (0.80-2.00)
== END ==
LOC: LAB 10:45
PROVIDERS: ATTEND Nurse Practitioner Family
DX: I48.91 Unspecified atrial fibrillation (principal)
CPT/HCPCS: 36415; 80048; 80162

== ENCOUNTER → 2017-03-22 | Outpatient (CLI) | payer SELFPAY ==
[~2017-03-22] MED LIST changes: +RT-ALBUTEROL SULF 2.5 MG/3 ML PRE-MIX VIAL INH ONE
== END ==
LOC: RT 11:42
PROVIDERS: ATTEND Nurse Practitioner Family
DX: R06.00 Dyspnea, unspecified (principal); J30.2 Other seasonal allergic rhinitis; Z87.891 Personal history of nicotine dependence
CPT/HCPCS: 94060; 94726; 94729

== ENCOUNTER 2017-03-25 21:16 | Outpatient (CLI) | payer SELFPAY ==
[~2017-03-25 21:16] MED LIST changes: -RT-ALBUTEROL SULF 2.5 MG/3 ML PRE-MIX VIAL INH ONE
== END 2017-03-26 07:35 | disposition home or self-care (01) ==
LOC: SLEEP 21:16
PROVIDERS: ATTEND Nurse Practitioner Family
DX: G47.33 Obstructive sleep apnea (adult) (pediatric) (principal); G47.10 Hypersomnia, unspecified
CPT/HCPCS: 95810

== ENCOUNTER → 2017-04-28 | Outpatient (CLI) | payer SELFPAY ==
[2017-04-28 13:41] LABS: BASOPHILS % (AUTO) 0 % (0-10); EOSINOPHILS # (AUTO) 0.2 10^3/uL (0.0-0.3); EOSINOPHILS % (AUTO) 2 % (0-10); HEMATOCRIT 43 % (40-54); HEMOGLOBIN 14.5 G/DL (13.3-17.7); LYMPHOCYTES # (AUTO) 1.5 X 10^3 (1.0-4.0); LYMPHOCYTES % (AUTO) 18 % (12-44); MEAN CORPUSCULAR HEMOGLOBIN 30 PG (25-34); MEAN CORPUSCULAR HGB CONC 34 G/DL (32-36); MEAN CORPUSCULAR VOLUME 87 FL (80-99); MEAN PLATELET VOLUME 9.5 FL (7.4-10.4); MONOCYTES # (AUTO) 0.6 X 10^3 (0.0-1.0); MONOCYTES % (AUTO) 7 % (0-12); NEUTROPHILS # (AUTO) 6.2 X 10^3 (1.8-7.8); NEUTROPHILS % (AUTO) 73 % (42-75); PLATELET COUNT 329 10^3/uL (130-400); RED BLOOD COUNT 4.91 10^6/uL (4.35-5.85); RED CELL DISTRIBUTION WIDTH 13.7 % (10.0-14.5); WHITE BLOOD COUNT 8.5 10^3/uL (4.3-11.0)
[2017-04-28 14:10] LABS: ALANINE AMINOTRANSFERASE 50 U/L (0-55); ALKALINE PHOSPHATASE 109 U/L (40-136); BILIRUBIN,TOTAL 0.9 MG/DL (0.1-1.0); BUN/CREATININE RATIO 22; CALCIUM 9.5 MG/DL (8.5-10.1); CARBON DIOXIDE 28 MMOL/L (21-32); CHLORIDE 106 MMOL/L (98-107); CREATININE SERUM 0.97 MG/DL (0.60-1.30); GFR ESTIMATED > 60; GLUCOSE 124 MG/DL (70-105); MAGNESIUM 1.9 MG/DL (1.8-2.4); POTASSIUM 4.3 MMOL/L (3.6-5.0); SODIUM 140 MMOL/L (135-145); TOTAL PROTEIN 7.2 GM/DL (6.4-8.2)
== END ==
LOC: LAB 13:26
PROVIDERS: ATTEND Internal Medicine Cardiovascular Disease
DX: I48.0 Paroxysmal atrial fibrillation (principal); I11.0 Hypertensive heart disease with heart failure; I50.42 Chronic combined systolic (congestive) and diastolic (congestive) heart failure; I42.0 Dilated cardiomyopathy; E07.89 Other specified disorders of thyroid; E66.8 Other obesity; G47.33 Obstructive sleep apnea (adult) (pediatric)
CPT/HCPCS: 36415; 80053; 83735; 84443; 85025

== ENCOUNTER → 2017-05-08 | Outpatient (CLI) | payer OTHER ==
[~2017-05-08] MED LIST changes: +IOHEXOL 350 MG/ML 150 ML (OMNIPAQUE 350) VIAL IV ONE; +NS 100 ML (IVPB) BAG IV ONE
[2017-05-08 11:32] LABS: BUN/CREATININE RATIO 22; CREATININE SERUM 0.99 MG/DL (0.60-1.30); GFR ESTIMATED > 60
[2017-05-08] MEDS: CATHETER FLUSH 10 ML SYR IV PRN ×2 (13:48→13:53)
--- NOTE | 2017-05-08 15:21 | Diagnostic Imaging Report ---
PROCEDURE: CT angiography of the chest with contrast. TECHNIQUE: Multiple contiguous axial images were obtained through the chest after uneventful bolus administration of intravenous contrast. 3-dimensional reconstructed CTA MIP acquisitions were also performed. DATE: 05/08/2017. COMPARISON: Chest radiograph 02/23/2017. INDICATION: 62-year-old male, restrictive lung disease, dyspnea, hypoxia. FINDINGS: There is no identified pulmonary nodule or mass. There is no focal lung consolidation. There is no pneumothorax. There is no pleural effusion. The central airways are patent. There is no peripheral honeycombing. There is no bronchiectasis. There is no identified pulmonary embolus. The main pulmonary artery measures 2.8 cm in diameter which is right at the upper limits of normal. There is a bovine aortic arch. There are atherosclerotic calcifications. The heart is not enlarged. There is no pericardial effusion. There is no identified mediastinal, hilar, or axillary lymph node which meets CT size criteria for adenopathy. There is a mixed attenuation partially visualized left thyroid nodule measuring up to 2.5 cm in size. There is a low-attenuation lesion in the right lobe of the liver on axial image 175 which measures 8 mm in size which demonstrates internal attenuation of 9 Hounsfield units compatible with benign cyst. There is a low-attenuation lesion measuring 5 mm size in the right lobe of liver on axial image 172 which appears visually similar although is too small to definitively characterize. Additional visualized portions of the upper abdomen are unremarkable. There is no identified acute bony abnormality. IMPRESSION: CT CHEST. 1. No identified acute cardiopulmonary abnormality. 2. No evidence of chronic lung disease. 3. 8 mm low attenuation lesion in the right lobe of the liver compatible with benign cysts and similar appearing 5 mm low-attenuation lesion in the right lobe of the liver which is too small to characterize. 4. Atherosclerotic calcifications noted. 5. Partially visualized 2.5 cm left thyroid nodule. Recommend dedicated thyroid ultrasound for further assessment. Dictated by: Dictated on workstation # [id number]
== END ==
LOC: RAD 10:54
PROVIDERS: ATTEND Nurse Practitioner Family
DX: J98.4 Other disorders of lung (principal); K76.9 Liver disease, unspecified; I70.0 Atherosclerosis of aorta; E04.1 Nontoxic single thyroid nodule
CPT/HCPCS: 36415; 71275; 82565; 84520

== ENCOUNTER → 2017-07-14 | Outpatient (CLI) | payer OTHER ==
[~2017-07-14] MED LIST changes: -IOHEXOL 350 MG/ML 150 ML (OMNIPAQUE 350) VIAL IV ONE; -NS 100 ML (IVPB) BAG IV ONE
--- NOTE | 2017-07-14 16:44 | Diagnostic Imaging Report ---
PROCEDURE: US Thyroid. TECHNIQUE: Multiple real-time grayscale images were obtained of the thyroid in various projections. INDICATION: Thyroid Nodule. FINDINGS: There are no previous thyroid ultrasound examinations available for comparison. The I-123 uptake exam of 09/02/2011 failed to show any abnormality of the thyroid gland. The recent CTA chest exam of 05/08/2017 however did indicate a 2.5 cm left thyroid nodule. On this study, there is a sizable 3.8 x 2.8 x 3.0 cm complex nodule in the midportion of the left lobe of the thyroid. I do feel that this would correspond to the finding of the CT exam. There is also a 1.9 x 1.4 x 1.6 cm complex similar-appearing nodule in the right lobe of the thyroid. A much smaller 1.8 x 1.2 x 1.2 cm hypoechoic lesion is also seen in the inferior pole of the right lobe of the thyroid. The thyroid gland itself is enlarged with the right lobe measuring 6.4 x 2.5 x 2.2 cm and the left lobe estimated to be 5.7 x 3.1 x 3.6 cm (normal gland size 4-5 x 2 x 2 cm or less). IMPRESSION: The thyroid gland is enlarged and there are prominent complex nodules involving each lobe. These findings may well be secondary to a multinodular goiter. The possibility that these nodules are neoplastic in nature would be less likely but should still be considered. If a tissue diagnosis is desired, then an ultrasound-guided biopsy of each dominant nodule could be obtained. If further imaging is desired, then PET/CT would be recommended. If there is no intervention at this time and the PET/CT exam is not performed, then a short-term (three-month) followup thyroid ultrasound exam should be obtained. Dictated by: Dictated on workstation # [id number]
== END ==
LOC: RAD 15:13
PROVIDERS: ATTEND Internal Medicine
DX: E04.2 Nontoxic multinodular goiter (principal)
CPT/HCPCS: 76536

== ENCOUNTER → 2017-09-29 | Outpatient (CLI) | payer MEDICAID ==
[~2017-09-29] MED LIST changes: -SPIR25TA3 PO; +SPIR25TA5 PO
[2017-09-29 15:07] LABS: ALANINE AMINOTRANSFERASE 46 U/L (0-55); ALKALINE PHOSPHATASE 85 U/L (40-136); BILIRUBIN,TOTAL 0.6 MG/DL (0.1-1.0); BUN/CREATININE RATIO 19; CALCIUM 9.9 MG/DL (8.5-10.1); CARBON DIOXIDE 25 MMOL/L (21-32); CHLORIDE 107 MMOL/L (98-107); CREATININE SERUM 0.95 MG/DL (0.60-1.30); GFR ESTIMATED > 60; GLUCOSE 114 MG/DL (70-105); POTASSIUM 4.4 MMOL/L (3.6-5.0); SODIUM 141 MMOL/L (135-145); TOTAL PROTEIN 7.4 GM/DL (6.4-8.2)
== END ==
LOC: LAB 14:36
PROVIDERS: ATTEND Internal Medicine Endocrinology, Diabetes & Metabolism
DX: E04.2 Nontoxic multinodular goiter (principal)
CPT/HCPCS: 36415; 80053; 84439; 84443; 84480

== ENCOUNTER → 2017-11-16 | Outpatient (CLI) | payer MEDICAID ==
--- NOTE | 2017-11-16 19:22 | Diagnostic Imaging Report ---
EXAMINATION: Right lower extremity arterial Doppler. INDICATION: Groin pain. COMPARISON: There are no prior studies available for comparison. TECHNIQUE: Spectral and color flow imaging of the arterial system in the right lower extremity was performed. FINDINGS: There is fairly good arterial blood flow in the common femoral, superficial femoral, popliteal, and posterior tibial veins. Triphasic waveforms are noted, and there is no abrupt alteration of velocities to suggest a hemodynamically significant stenosis. However, there is monophasic flow in the dorsalis pedis artery. This may be secondary to trifurcation disease. If further imaging is desired, then CTA of the aorta with bilateral run-offs would be recommended. IMPRESSION: There is fairly good arterial blood flow to the right lower extremity, but the monophasic flow within the dorsalis pedis artery may be related to trifurcation disease. Recommendations as above. Dictated by: Dictated on workstation # [id number]
== END ==
LOC: RAD 13:55
PROVIDERS: ATTEND Nurse Practitioner Family
DX: R10.30 Lower abdominal pain, unspecified (principal)
CPT/HCPCS: 93926

== ENCOUNTER → 2018-06-20 | Outpatient (CLI) | payer OTHER ==
[2018-06-20 13:36] LABS: FREE T4 (FREE THYROXINE) 0.85 NG/DL (0.70-1.48)
== END ==
LOC: LAB 12:32
PROVIDERS: ATTEND Internal Medicine Endocrinology, Diabetes & Metabolism
DX: E04.2 Nontoxic multinodular goiter (principal)
CPT/HCPCS: 36415; 84439; 84443; 84480

== ENCOUNTER → 2018-06-26 | Outpatient (CLI) | payer MEDICAID, OTHER ==
--- NOTE | 2018-06-26 15:14 | Diagnostic Imaging Report ---
PROCEDURE: US Thyroid. TECHNIQUE: Multiple real-time grayscale images were obtained of the thyroid in various projections. INDICATION: Multinodular goiter. COMPARISON: Correlation is made with prior thyroid ultrasound from 07/14/2017. FINDINGS: The right lobe of thyroid measures 5.3 x 3.4 x 2.0 cm and the left lobe measures 5.7 x 3.3 x 3.6 cm. Complex, mixed solid and cystic mass involving the left lobe of the thyroid measures 3.7 x 2.8 x 2.5 cm. This is similar to prior exam. Complex nodule in upper pole of right lobe measures 2.5 x 1.7 x 1.6 cm. This compares with prior measurement of 1.9 x 1.4 x 1.6 cm. Differences in measurement appear to be owing to slight differences in measurement technique. The nodule does not appear to be significantly changed in size. Nodule in lower pole of right lobe measures 1.7 x 1.4 x 1.1 cm compared with 1.8 x 1.2 x 1.2 cm on prior. IMPRESSION: Bilateral complex thyroid masses. The overall appearance appears to be stable when compared with prior exam from 07/14/2017. Dictated by: Dictated on workstation # [id number]
--- NOTE | 2018-06-27 12:41 | Diagnostic Imaging Report ---
INDICATION: Multinodular goiter. TECHNIQUE: Patient was administered 199 ?Ci of I-123 orally and a 4-hour and 24-hour thyroid uptake was performed. Thyroid scan was also performed. FINDINGS: 24-hour thyroid uptake is 8%. Normal values are 10-30%. 4-hour uptake is 5%. Normal values are 8-16%. There appears to be fairly homogeneous uptake of activity throughout both lobes of the thyroid gland. No definite hot or cold nodules are identified. IMPRESSION: There is slightly low 4-hour and 24-hour thyroid uptake consistent with hypothyroidism. No hot or cold thyroid nodules are identified. Dictated by: Dictated on workstation # [id number]
== END ==
LOC: RAD 10:43
PROVIDERS: ATTEND Internal Medicine Endocrinology, Diabetes & Metabolism
DX: E04.2 Nontoxic multinodular goiter (principal)
CPT/HCPCS: 76536; 78014

== ENCOUNTER → 2018-08-14 | Outpatient (CLI) | payer MEDICAID, OTHER ==
[2018-08-14 12:47] LABS: FREE T4 (FREE THYROXINE) 0.74 NG/DL (0.70-1.48)
== END ==
LOC: LAB 11:42
PROVIDERS: ATTEND Internal Medicine Endocrinology, Diabetes & Metabolism
DX: E04.2 Nontoxic multinodular goiter (principal)
CPT/HCPCS: 36415; 84439; 84443; 84480

== ENCOUNTER → 2018-11-02 | Outpatient (CLI) | payer MEDICARE, MEDICAID ==
[2018-11-02 13:40] LABS: FREE T4 (FREE THYROXINE) 0.82 NG/DL (0.70-1.48)
== END ==
LOC: LAB 12:48
PROVIDERS: ATTEND Internal Medicine Endocrinology, Diabetes & Metabolism
DX: E04.2 Nontoxic multinodular goiter (principal)
CPT/HCPCS: 36415; 84439; 84443; 84480

== ENCOUNTER → 2018-11-12 | Outpatient (CLI) | payer MEDICARE, MEDICAID | LOC: CARD 12:04 | PROVIDERS: ATTEND Internal Medicine Cardiovascular Disease | DX: I48.91 Unspecified atrial fibrillation (principal) | CPT/HCPCS: 93225; 93226 ==

== ENCOUNTER → 2018-12-10 | Outpatient (CLI) | payer MEDICARE, MEDICAID ==
[2018-12-10 10:08] LABS: BASOPHILS % (AUTO) 0 % (0-10); EOSINOPHILS # (AUTO) 0.2 10^3/uL (0.0-0.3); EOSINOPHILS % (AUTO) 2 % (0-10); HEMATOCRIT 48 % (40-54); HEMOGLOBIN 15.4 G/DL (13.3-17.7); LYMPHOCYTES # (AUTO) 1.7 X 10^3 (1.0-4.0); LYMPHOCYTES % (AUTO) 23 % (12-44); MEAN CORPUSCULAR HEMOGLOBIN 29 PG (25-34); MEAN CORPUSCULAR HGB CONC 32 G/DL (32-36); MEAN CORPUSCULAR VOLUME 92 FL (80-99); MEAN PLATELET VOLUME 9.4 FL (7.4-10.4); MONOCYTES # (AUTO) 0.5 X 10^3 (0.0-1.0); MONOCYTES % (AUTO) 7 % (0-12); NEUTROPHILS # (AUTO) 4.9 X 10^3 (1.8-7.8); NEUTROPHILS % (AUTO) 68 % (42-75); PLATELET COUNT 268 10^3/uL (130-400); RED CELL DISTRIBUTION WIDTH 13.6 % (10.0-14.5); WHITE BLOOD COUNT 7.3 10^3/uL (4.3-11.0)
[2018-12-10 10:26] LABS: ALANINE AMINOTRANSFERASE 43 U/L (0-55); ALKALINE PHOSPHATASE 118 U/L (40-136); BILIRUBIN,TOTAL 0.8 MG/DL (0.1-1.0); BUN/CREATININE RATIO 18; CALCIUM 10.1 MG/DL (8.5-10.1); CARBON DIOXIDE 29 MMOL/L (21-32); CHLORIDE 104 MMOL/L (98-107); CREATININE SERUM 1.08 MG/DL (0.60-1.30); GFR ESTIMATED > 60; GLUCOSE 110 MG/DL (70-105); MAGNESIUM 1.9 MG/DL (1.6-2.4); POTASSIUM 4.2 MMOL/L (3.6-5.0); SODIUM 141 MMOL/L (135-145); TOTAL PROTEIN 7.4 GM/DL (6.4-8.2)
[2018-12-10 10:30] LABS: ERYTHROCYTE SEDIMENTATION RATE 4 MM/HR (0-30)
== END ==
LOC: LAB 09:45
PROVIDERS: ATTEND Internal Medicine Cardiovascular Disease
DX: I48.91 Unspecified atrial fibrillation (principal); I95.0 Idiopathic hypotension; J98.4 Other disorders of lung; G47.30 Sleep apnea, unspecified
CPT/HCPCS: 36415; 80053; 80162; 83735; 85025; 85652

== ENCOUNTER → 2018-12-25 | Outpatient (CLI) | payer MEDICARE, MEDICAID ==
[~2018-12-25] VITALS: Ht 182 cm; Wt 154.0 kg
[~2018-12-25] MED LIST changes: +CATHETER FLUSH 10 ML SYR IV PRN; +REGADENOSON 0.4 MG/5 ML SYR (LEXISCAN) IV ONE
[2018-12-25 09:24] VITALS: BP 133/92
[2018-12-25 09:29] VITALS: BP 127/89
--- NOTE | 2018-12-26 14:51 | STRESS TEST ---
DATE OF SERVICE: 12/25/2018 RESTING AND POST REGADENOSON TECHNETIUM-99M TETROFOSMIN SPECT CT IMAGING ORDERING PHYSICIAN: Bela Chacko APRN PRIMARY PHYSICIAN: Dr. Wagner OTHER PHYSICIAN: Darion Jama MD, MA, FACP, FACC. CLINICAL DIAGNOSES: Dilated cardiomyopathy, wide complex tachycardia. Baseline images were carried out after injection of 10.85 mCi of technetium-99m Tetrofosmin. This was followed by 0.4 mg regadenoson and 30.5 mCi of technetium-99m Tetrofosmin for stress imaging. The electrocardiogram showed atrial fibrillation throughout the study. The electrocardiogram did not change significantly with regadenoson infusion. Ventricular response was somewhat rapid throughout the study. The patient did not report symptoms. Review of images at rest and following stress does not indicate any significant perfusion defects consistent with significant myocardial ischemia or infarction. Gated images show mild global hypokinesis. Left ventricular ejection fraction is calculated to be 42%. Left ventricular end diastolic volume is 64 mL. TID is absent (1.05). CONCLUSIONS: 1. No evidence of significant myocardial ischemia or infarction on this study. 2. Mild global hypokinesis with left ventricular ejection fraction calculated to be 42%. 3. Atrial fibrillation throughout the study with a somewhat rapid ventricular response. Job ID: [id number] DocumentID: [id number] Dictated Date: 12/26/2018 13:13:32 Immigration Investigator Date: 12/26/2018 14:49:30 Dictated By: DARION JAMA MD, MA, FACP, FACC,
== END ==
LOC: CARD 07:19
PROVIDERS: ATTEND Nurse Practitioner Family
DX: I48.91 Unspecified atrial fibrillation (principal); I51.89 Other ill-defined heart diseases; I42.0 Dilated cardiomyopathy; I50.42 Chronic combined systolic (congestive) and diastolic (congestive) heart failure; I11.0 Hypertensive heart disease with heart failure; G47.33 Obstructive sleep apnea (adult) (pediatric); I48.0 Paroxysmal atrial fibrillation
CPT/HCPCS: 78452; 93017

== ENCOUNTER → 2019-02-25 | Outpatient (CLI) | payer MEDICARE, MEDICAID ==
[~2019-02-25] MED LIST changes: -CATHETER FLUSH 10 ML SYR IV PRN; -REGADENOSON 0.4 MG/5 ML SYR (LEXISCAN) IV ONE
[2019-02-25 15:17] LABS: FREE T4 (FREE THYROXINE) 0.83 NG/DL (0.70-1.48)
== END ==
LOC: LAB 14:15
PROVIDERS: ATTEND Internal Medicine Endocrinology, Diabetes & Metabolism
DX: E04.2 Nontoxic multinodular goiter (principal)
CPT/HCPCS: 36415; 84439; 84443; 84480

== ENCOUNTER 2019-03-24 06:37 | Inpatient (IN) | payer MEDICARE, MEDICAID ==
[2019-03-24] VITALS (16 sets, daily range): BP systolic 93–180; BP diastolic 46–110
[~2019-03-24] VITALS: Ht 182.9 cm; Wt 147.0 kg
[~2019-03-24 06:37] MED LIST changes: -METO-370 PO; +METO50TA7 PO
[2019-03-24] MEDS ORDERED: FAMOTIDINE 20 MG (PEPCID) TABLET PO ONE (09:15)
[2019-03-24] MEDS ORDERED: RT-ALBUTEROL/IPRATROPIUM 3 ML (DUONEB) VIAL INH PRN ×2 (09:45→13:15)
--- NOTE | 2019-03-24 09:56 | Progress Note - Hospitalist ---
Subjective HPI/CC On Admission Date Seen by Provider: Mar 24, 2019 Time Seen by Provider: 09:30 Subjective/Events-last exam patient reports he was in his usual state of health until yesterday morning when he first developed some sneezing and runny nose. Shortly thereafter he developed chills fever and lethargy with a mild headache. He slept most the day but last night felt more short of breath with increasing cough and felt feverish. He presented in [facility] emergency room where his temperature was 103 there is suggestion of bibasilar pneumonia on the chest x-ray and he tested positive for influenza a. He has chronic atrial fibrillation and while his temperature was 103 heart rate was in the 130-140 beat per minute range. He denied chest pain. His oxygen saturation was in the upper 80s oxygen was initiated which brought him up into the low to mid 90 range without evidence for respiratory distress. Upon my arrival he had a dry cough otherwise did not appear to be in acute distress and his heart rate was in the 110-120 beat per minute range. He received Zosyn and Tamiflu 1 in addition to I believe diltiazem by mouth or may have been his metoprolol and he was also given albuterol base breathing treatment. Past medical history is significant for atrial fibrillation chronic for which she is on Eliquis 5 mg twice a day diltiazem 360 mg daily metoprolol 50 mg daily. He apparently has history of hyperthyroidism and is been on methimazole 5 mg daily. Objective Exam Vital Signs Vital Signs Date Time Temp Pulse Resp B/P (MAP) Pulse Ox O2 Delivery O2 Flow Rate FiO2 03/24/19 08:15 36.8 120 16 124/110 (115) 91 Nasal Cannula 5.00 Capillary Refill : Results/Procedures Lab Patient resulted labs reviewed. ELFEGO BECERRIL MD Mar 24, 2019 09:56
--- NOTE | 2019-03-24 10:03 | History & Physical-Hospitalist ---
History of Present Illness HPI/Chief Complaint patient reports he was in his usual state of health until yesterday morning when he first developed some sneezing and runny nose. Shortly thereafter he developed chills fever and lethargy with a mild headache. He slept most the day but last night felt more short of breath with increasing cough and felt feverish. He presented in [facility] emergency room where his temperature was 103 there is suggestion of bibasilar pneumonia on the chest x-ray and he tested positive for influenza a. He has chronic atrial fibrillation and while his temperature was 103 heart rate was in the 130-140 beat per minute range. He denied chest pain. His oxygen saturation was in the upper 80s oxygen was initiated which brought him up into the low to mid 90 range without evidence for respiratory distress. Upon my arrival he had a dry cough otherwise did not appear to be in acute distress and his heart rate was in the 110-120 beat per minute range. He received Zosyn and Tamiflu 1 in addition to I believe diltiazem by mouth or may have been his metoprolol and he was also given alb uterol base breathing treatment. Past medical history is significant for atrial fibrillation chronic for which she is on Eliquis 5 mg twice a day diltiazem 360 mg daily metoprolol 50 mg daily. He apparently has history of hyperthyroidism and is been on methimazole 5 mg daily Date Seen 03/24/19 Time Seen by a Provider: 09:00 Attending Physician Robert Becerril MD PCP Matt Wagner MD Referring Physician Date of Admission Mar 24, 2019 at 08:08 Home Medications & Allergies Home Medications Reviewed patient Home Medication Reconciliation performed by pharmacy medication reconciliations generator technician and/or nursing. Patients Allergies have been reviewed. Allergies Allergies Coded Allergies clindamycin (Verified Allergy, Unknown, 04/25/16) Uncoded Allergies CEYANE PEPPER ( Allergy, Unknown, 04/25/16) ENDOMETHICIN ( Allergy, Unknown, 04/25/16) Past Hmzwcpy-Ycyrjo-Nfnjqs Hx Past Med/Social Hx: Reviewed and Corrections made Patient Social History Alcohol Use: Denies Use Recreational Drug Use: No Smoking Status: Former Smoker Former Smoker, Quit: Feb 20, 2009 2nd Hand Smoke Exposure: No Physical Abuse Screen: No Sexual Abuse: No Recent Foreign Travel: No Contact w/other who traveled: No Recent Hopitalizations: No Recent Infectious Disease Expo: No Immunizations Up To Date Tetanus Booster (TDap): Unknown Seasonal Allergies Seasonal Allergies: No Past Medical History Surgeries: Bladder Surgery Currently Using CPAP: Yes Reproductive: No Sexually Transmitted Disease: No Musculoskeletal: Degenerate Disk Disease, Arthritis Cancer: Bladder What Type of Treatment Did You: Surgical Intervention History of Blood Disorders: No Family History FH: emphysema 19 FATHER Prostatitis 19 FATHER Heart Disease, Cancer, Lung Disease, Stroke Review of Systems Constitutional: see HPI Physical Exam Physical Exam Vital Signs Vital Signs - First Documented 03/24/19 03/24/19 08:14 08:15 Temp 36.8 Pulse 117 Resp 16 B/P (MAP) 124/110 (115) Pulse Ox 91 O2 Delivery Nasal Cannula O2 Flow Rate 5.00 Capillary Refill : Height, Weight, BMI Height: 6'0.00" Weight: 325lbs. 0.0oz. 147.890219xu; 45.76 BMI Method:Stated General Appearance: Mild Distress, Obese Respiratory: No Accessory Muscle Use, No Respiratory Distress, Other (a few fine basilar rales without wheezing or rhonchi elsewhere the chest is clear) Cardiovascular: No Edema, No Gallop, No JVD, No Murmur, Irregularly Irregular Gastrointestinal: Normal Bowel Sounds, No Organomegaly, No Pulsatile Mass, Non Tender, Soft Extremity: Normal Capillary Refill, Normal Inspection, Normal Range of Motion, Non Tender, No Calf Tenderness, No Pedal Edema Neurologic/Psychiatric: Alert, Oriented x3 Skin: Damp (with a flushed appearance) Results Results/Procedures Labs Patient resulted labs reviewed. Assessment/Plan Admission Diagnosis A/P 1. Influenza A with secondary viral pneumonia and hypoxemia mild ABG in [facility] on 2 L per nasal cannula revealed a pH of 7.35 PCO2 52 and a PO2 of 62. With past smoking history suggests some mild hypercapnic respiratory failure considering this and it fibrillation is being admitted to the intensive care unit and will continue Tamiflu with repeat EKG and lab work in the morning. His white count was not elevated compatible with viral infection we'll continue when necessary breathing treatments. 2. Atrial fibrillation rate moderating his his temperature is coming down continue beta kerry and diltiazem therapy. We'll be continuing anticoagulant therapy. 3. History of coronary artery disease continue aspirin considering this nail was combination will initiate Pepcid for stress ulcer prophylaxis for which the patient is in increased risk. Eliquis will suffice for DVT prophylaxis. 4. History of hyperthyroidism continue methimazole TSH in the morning with repeat labs. Admission Status: Inpatient Order (span 2 midnights) Reason for Inpatient Admission: see above ROBERT BECERRIL MD Mar 24, 2019 10:03
[2019-03-24] MEDS ORDERED: APIXABAN 5 MG (ELIQUIS) TABLET ONE (10:15)
[2019-03-24] MEDS: ACETAMINOPHEN 500 MG TAB (TYLENOL) PO SCH ×3 (10:30→21:54)
[2019-03-24] MEDS: APIXABAN 5 MG (ELIQUIS) TABLET PO SCH ×2 (10:30→19:56)
[2019-03-24] MEDS: OSELTAMIVIR 75 MG (TAMIFLU) CAPSULE PO SCH ×2 (10:30→19:56)
[2019-03-24] MEDS: guaiFENesin/DM (ROBITUSSIN DM) 10 ML UDC PO PRN ×2 (10:31→14:58)
[2019-03-24] MEDS: RT-ALBUTEROL/IPRATROPIUM 3 ML (DUONEB) VIAL INH SCH ×3 (13:48→21:28)
[2019-03-24] MEDS: methylPREDNISolone 40 MG/ML (Solu-MEDROL) VIAL IV SCH ×2 (14:58→22:33)
[2019-03-24] MEDS: FAMOTIDINE 20 MG (PEPCID) TABLET PO SCH (19:55)
--- NOTE | 2019-03-24 22:00 | NUR ---
PT REFUSED TO WEAR BIPAP, REQUESTED TO STAY ON VAPOTHERM THROUGHOUT NIGHT.
[2019-03-24 23:43] LABS: BASOPHILS % (AUTO) 0 % (0-10); EOSINOPHILS % (AUTO) 0 % (0-10); HEMATOCRIT 45 % (40-54); HEMOGLOBIN 13.9 G/DL (13.3-17.7); LYMPHOCYTES # (AUTO) 0.3 X 10^3 (1.0-4.0); LYMPHOCYTES % (AUTO) 6 % (12-44); MEAN CORPUSCULAR HEMOGLOBIN 29 PG (25-34); MEAN CORPUSCULAR HGB CONC 31 G/DL (32-36); MEAN CORPUSCULAR VOLUME 94 FL (80-99); MEAN PLATELET VOLUME 9.4 FL (7.4-10.4); MONOCYTES # (AUTO) 0.1 X 10^3 (0.0-1.0); MONOCYTES % (AUTO) 2 % (0-12); NEUTROPHILS # (AUTO) 4.4 X 10^3 (1.8-7.8); NEUTROPHILS % (AUTO) 91 % (42-75); PLATELET COUNT 207 10^3/uL (130-400); RED CELL DISTRIBUTION WIDTH 14.1 % (10.0-14.5); WHITE BLOOD COUNT 4.9 10^3/uL (4.3-11.0)
[2019-03-24 23:58] LABS: BUN/CREATININE RATIO 13; CALCIUM 8.6 MG/DL (8.5-10.1); CARBON DIOXIDE 26 MMOL/L (21-32); CHLORIDE 102 MMOL/L (98-107); CREATININE SERUM 1.12 MG/DL (0.60-1.30); GFR ESTIMATED > 60; GLUCOSE 194 MG/DL (70-105); POTASSIUM 4.7 MMOL/L (3.6-5.0); SODIUM 137 MMOL/L (135-145)
[2019-03-25] VITALS (26 sets, daily range): BP systolic 93–154; BP diastolic 64–102
[2019-03-25 00:34] LABS: LYMPHOCYTES % (MANUAL) 5 %; MONOCYTES % (MANUAL) 1 %; NEUTROPHILS % (MANUAL) 94 %
[2019-03-25] MEDS: NS IV 1000 ML 1,000 ML IV SCH ×4 (01:28→20:28)
[2019-03-25] MEDS: RT-ALBUTEROL/IPRATROPIUM 3 ML (DUONEB) VIAL INH SCH ×6 (01:43→23:12)
[2019-03-25] MEDS: MAGNESIUM 1 GM/100 ML IVPB 100 ML IV SCH (03:57)
[2019-03-25] MEDS: POTASSIUM CL 10MEQ/50ML IVPB 50 ML IV SCH (03:57)
[2019-03-25] MEDS: ACETAMINOPHEN 500 MG TAB (TYLENOL) PO SCH ×4 (03:57→20:28)
[2019-03-25] MEDS: KCL 20 MEQ TAB (K-DUR) PO SCH (03:58)
[2019-03-25 03:59] LABS: MAGNESIUM 1.8 MG/DL (1.6-2.4)
[2019-03-25] MEDS ORDERED: PIPERACILLIN/TAZO 4.5 GM/NS 100 ML IV ONE ×2 (05:15)
[2019-03-25] MEDS ORDERED: PIPERACILLIN/TAZO 4.5 GM VIAL (ZOSYN) IV ONE (05:51)
[2019-03-25] MEDS ORDERED: NS (IVPB) 100 ML ONE (05:51)
[2019-03-25 05:58] LABS: BASOPHILS % (AUTO) 0 % (0-10); EOSINOPHILS % (AUTO) 0 % (0-10); HEMATOCRIT 45 % (40-54); HEMOGLOBIN 13.8 G/DL (13.3-17.7); LYMPHOCYTES # (AUTO) 0.3 X 10^3 (1.0-4.0); LYMPHOCYTES % (AUTO) 8 % (12-44); MEAN CORPUSCULAR HEMOGLOBIN 29 PG (25-34); MEAN CORPUSCULAR HGB CONC 31 G/DL (32-36); MEAN CORPUSCULAR VOLUME 95 FL (80-99); MEAN PLATELET VOLUME 9.3 FL (7.4-10.4); MONOCYTES # (AUTO) 0.1 X 10^3 (0.0-1.0); MONOCYTES % (AUTO) 3 % (0-12); NEUTROPHILS # (AUTO) 3.8 X 10^3 (1.8-7.8); NEUTROPHILS % (AUTO) 89 % (42-75); PLATELET COUNT 219 10^3/uL (130-400); WHITE BLOOD COUNT 4.3 10^3/uL (4.3-11.0)
[2019-03-25] MEDS: methylPREDNISolone 40 MG/ML (Solu-MEDROL) VIAL IV SCH ×5 (06:10→18:27)
[2019-03-25 06:18] LABS: ALANINE AMINOTRANSFERASE 49 U/L (0-55); ALBUMIN 3.8 GM/DL (3.2-4.5); ALKALINE PHOSPHATASE 102 U/L (40-136); BILIRUBIN,TOTAL 0.4 MG/DL (0.1-1.0); BUN/CREATININE RATIO 13; CALCIUM 8.3 MG/DL (8.5-10.1); CARBON DIOXIDE 28 MMOL/L (21-32); CHLORIDE 102 MMOL/L (98-107); GFR ESTIMATED > 60; GLUCOSE 180 MG/DL (70-105); MAGNESIUM 1.9 MG/DL (1.6-2.4); PHOSPHORUS 2.9 MG/DL (2.3-4.7); POTASSIUM 5.4 MMOL/L (3.6-5.0); SODIUM 138 MMOL/L (135-145)
[2019-03-25 06:59] LABS: ABG OXYGEN SATURATION 69 % (94-100); ABG PCO2 65 MMHG (35-45); ABG PO2 41 MMHG (79-93); ABG TCO2 32.3 MMOL/L (21.0-31.0)
[2019-03-25 07:03] LABS: ALLENS TEST POSITIVE; INSPIRED O2 70%; PATIENT TEMP 36.4; VENTILATOR NO
[2019-03-25 07:05] LABS: ABG PH 7.29 (7.37-7.43)
--- NOTE | 2019-03-25 07:21 | Pulmonary Consultation ---
History of Present Illness History of Present Illness Date Seen by Provider: Mar 25, 2019 Time Seen by Provider: 05:00 Date of Admission History of Present Illness 63yo with hx of Afib, MARYCHUY on cpap therapy presented to [facility] seocndary to worsening SOB, cough, lethargy, and body aches. He was found to have acute influenza and was transferred to our ICU. He was also found to have bibasilar PNA. He was placed on IV abx and tamiflu. PT is now requiring high flow oxygen via Vapotherm. Pt refuses BiPAP. He also has history of hyperthyroidism and is been on methimazole 5 mg daily. I am consulted for ICU management. Allergies and Home Medications Allergies Coded Allergies: clindamycin (Verified Allergy, Unknown, 04/25/16) Uncoded Allergies: CEYANE PEPPER (Allergy, Unknown, 04/25/16) ENDOMETHICIN (Allergy, Unknown, 04/25/16) Home Medications Albuterol Sulfate 6.7 Gm Hfa.aer.ad, 2 PUFF IH Q6H PRN for SHORTNESS OF BREATH, (Reported) Apixaban 5 Mg Tablet, 5 MG PO 1000,2200 Prescribed by: DI MOFFETT on 02/24/17932 Aspirin 81 Mg Tab.chew, 81 MG PO DAILY Prescribed by: DI MOFFETT on 02/24/17932 Atorvastatin Calcium 40 Mg Tablet, 40 MG PO HS Prescribed by: DI MOFFETT on 02/24/17932 Digoxin 250 Mcg Tablet, 0.25 MG PO DAILY Prescribed by: DI MOFFETT on 02/24/17932 Furosemide 20 Mg Tablet, 20 MG PO DAILY Prescribed by: DI MOFFETT on 02/24/17932 Lisinopril 2.5 Mg Tablet, 2.5 MG PO DAILY Prescribed by: DI MOFFETT on 02/24/17932 Menthol 118 Ml Gel..ml., TP TID PRN for JOINT PAIN, (Reported) Metoprolol Succinate 50 Mg Tab.er.24h, 50 MG PO DAILY Prescribed by: DI MOFFETT on 02/24/17932 Spironolactone 25 Mg Tablet, 25 MG PO DAILY Prescribed by: DI MOFFETT on 02/24/17932 Past Bjfavzl-Wbynug-Eykddm Hx Past Med/Social Hx: Reviewed and Corrections made Patient Social History Alcohol Use: Denies Use Recreational Drug Use: No Smoking Status: Former Smoker Former Smoker, Quit: Feb 20, 2009 2nd Hand Smoke Exposure: No Recent Foreign Travel: No Contact w/Someone Who Travel: No Recent Infectious Disease Expo: No Recent Hopitalizations: No Immunizations Up To Date Tetanus Booster (TDap): Unknown Date of Pneumonia Vaccine: Mar 23, 2018 Seasonal Allergies Seasonal Allergies: No Past Medical History Surgeries: Yes (BLADDER SURGERY) Bladder Surgery Respiratory: Yes Asthma, Pneumonia, Sleep Apnea Currently Using CPAP: Yes Cardiac: Yes Neurological: No Reproductive Disorders: No Sexually Transmitted Disease: No Genitourinary: Yes (bladder cancer) Gastrointestinal: No Musculoskeletal: Yes Degenerate Disk Disease, Arthritis Endocrine: No HEENT: No Cancer: Yes Bladder What Type of Treatment Did You: Surgical Intervention Psychosocial: No Integumentary: No Blood Disorders: No Family Medical History FH: emphysema 19 FATHER Prostatitis 19 FATHER Heart Disease, Cancer, Lung Disease, Stroke Review of Systems Time Seen by Provider: 07:27 Constitutional: Fever, Chills, Sweats, Weakness, Malaise, Other Eyes: No: Pain, Vision change, Conjunctivae inflammation, Eyelid inflammation, Other, Redness ENT: Nose congestion; No: Ear pain, Ear discharge, Nose pain, Nose discharge, Mouth pain, Mouth swelling, Throat pain, Throat swelling, Other Respiratory: Cough, Shortness of breath, Wheezing, Sputum; No: Dry, SOB with ex certion, Hemoptysis, Pleuritic Pain, Wheezing, Other Cardiovascular: Palpitations, Paroxysmal Noc. Dyspnea; No: Chest Pain, Orthopnea, Edema, Lt Headedness, Other Gastrointestinal: Nausea; No: Abdominal Pain Genitourinary: No Dysuria, No Frequency, No Incontinence, No Hematuria, No Retention, No Other Musculoskeletal: back pain Sepsis Event Evaluation Height, Weight, BMI Height: 6'0.00" Weight: 325lbs. 0.0oz. 147.956697ly; 45.76 BMI Method:Stated Exam Exam Vital Signs Date Time Temp Pulse Resp B/P (MAP) Pulse Ox O2 Delivery O2 Flow Rate FiO2 03/25/19 07:09 94 Vapotherm 30.00 70 03/25/19 06:00 114 130/94 (106) 89 Vapotherm 30.00 70.00 03/25/19 05:00 105 135/98 (110) 92 Vapotherm 30.00 70.00 03/25/19 04:00 106 133/85 (101) 94 Vapotherm 30.00 70.00 03/25/19 03:55 Vapotherm 30.00 70 03/25/19 03:55 37.1 03/25/19 03:00 104 132/99 (110) 92 Vapotherm 30.00 70.00 03/25/19 02:00 107 147/94 (111) 92 Vapotherm 30.00 70.00 03/25/19 01:43 92 Vapotherm 30.00 70 03/25/19 01:00 102 03/25/19 01:00 102 145/95 (112) 92 Vapotherm 30.00 70.00 03/25/19 00:00 Vapotherm 30.00 70 03/25/19 00:00 96 133/87 (102) 92 Vapotherm 30.00 70.00 03/25/19 00:00 37.0 03/24/19 23:00 99 118/79 (92) 93 Vapotherm 30.00 70.00 03/24/19 22:00 107 93/72 (79) 90 Vapotherm 30.00 70.00 03/24/19 21:28 93 Vapotherm 30.00 70 03/24/19 21:00 93 21 123/89 (100) 91 Vapotherm 30.00 70.00 03/24/19 20:01 37.1 101 18 163/102 (122) 94 Vapotherm 30.00 70.00 03/24/19 20:00 Vapotherm 30.00 70 03/24/19 20:00 37.1 03/24/19 19:00 97 03/24/19 19:00 97 19 148/62 (90) 92 Vapotherm 30.00 70.00 03/24/19 18:00 105 11 132/89 (103) 92 Vapotherm 30.00 70.00 03/24/19 17:47 Vapotherm 30.00 70.00 03/24/19 17:44 88 Vapotherm 30.00 70 03/24/19 17:00 103 26 180/94 (122) 93 Vapotherm 25.00 70.00 03/24/19 16:00 Vapotherm 25.00 70 03/24/19 16:00 118 20 174/104 (127) 91 Vapotherm 25.00 70.00 03/24/19 16:00 38.6 03/24/19 15:55 Vapotherm 25.00 70.00 03/24/19 15:00 103 29 168/102 (124) 93 Vapotherm 30.00 70.00 03/24/19 14:00 99 23 123/83 (96) 92 Vapotherm 30.00 70.00 03/24/19 13:49 91 Vapotherm 25.00 70 03/24/19 13:00 103 22 155/100 (118) 91 Vapotherm 30.00 70.00 03/24/19 13:00 86 03/24/19 12:28 Vapotherm 30.00 70.00 03/24/19 12:00 91 Vapotherm 30.00 80 03/24/19 12:00 96 8 129/81 (97) 96 Vapotherm 30.00 80.00 03/24/19 12:00 37.5 03/24/19 11:53 95 75 03/24/19 11:10 Vapotherm 30.00 80.00 03/24/19 11:00 98 19 120/72 (88) 97 Vapotherm 40.00 80.00 03/24/19 10:37 92 Vapotherm 40.00 90 03/24/19 10:35 Vapotherm 40.00 80.00 03/24/19 10:00 102 18 123/46 (71) 88 Nasal Cannula 5.00 03/24/19 09:00 109 15 124/110 (115) 92 Nasal Cannula 5.00 03/24/19 08:15 91 Nasal Cannula 5.00 03/24/19 08:15 36.8 120 16 124/110 (115) 91 Nasal Cannula 5.00 03/24/19 08:14 117 I & O 03/25/19 07:00 Intake Total 775 ml Output Total 770 ml Balance 5 ml Height & Weight Height: 6'0.00" Weight: 325lbs. 0.0oz. 147.179032pf; 45.76 BMI Method:Stated General Appearance: Moderate Distress, Obese Respiratory: No Accessory Muscle Use, No Respiratory Distress, Decreased Breath Sounds, Wheezing, Other (a few fine basilar rales without wheezing or rhonchi elsewhere the chest is clear) Cardiovascular: No Edema, No Gallop, No JVD, No Murmur, Irregularly Irregular Capillary Refill: Less Than 3 Seconds Extremity: Normal Capillary Refill, Normal Inspection, Normal Range of Motion, Non Tender, No Calf Tenderness, No Pedal Edema Neurologic/Psychiatric: Alert, Oriented x3 Skin: Normal Color, Warm/Dry, Damp (with a flushed appearance) Results Lab Laboratory Tests 03/24/19 23:35 03/25/19 05:40 Assessment/Plan Assessment/Plan Acute respiratory failure with pneumonia and influenza -Continue Abx -Workman culture -Oxygen -Continue Solumedrol -Pt is refusing BiPAP. Currently using Vapotherm -Pt is high risk for needing intubation -ABG reviewed -Repeat ABG at 11 Influenza A -Tamiflu Afib -Cardiology following Hx of hyperthyroid -Check TSH, T4 T3 HELEN DO DO Mar 25, 2019 07:21
--- NOTE | 2019-03-25 07:21 | Diagnostic Imaging Report ---
Indication: Pneumonia. Comparison: 02/23/2017 Findings: Single view of the chest demonstrates cardiac enlargement with unchanged bilateral interstitial infiltrates. There is no pneumothorax or effusion. Osseous structures normal. Impression: Unchanged aeration lungs. Dictated by: Dictated on workstation # [id number]
[2019-03-25] MEDS ORDERED: LACTATED RINGERS 1,000 ML IV SCH (07:45)
[2019-03-25] MEDS ORDERED: DILT360C36 PO (08:19)
[2019-03-25] MEDS ORDERED: ATOR40TA70 PO (08:19)
[2019-03-25] MEDS ORDERED: METH5TAB5 PO (08:19)
[2019-03-25] MEDS ORDERED: METO50TA7 PO (08:19)
[2019-03-25] MEDS ORDERED: FLUT16SP22 NS (08:19)
[2019-03-25] MEDS: FAMOTIDINE 20 MG (PEPCID) TABLET PO SCH ×2 (08:20→20:28)
[2019-03-25] MEDS: OSELTAMIVIR 75 MG (TAMIFLU) CAPSULE PO SCH ×2 (08:20→20:28)
[2019-03-25] MEDS: LORATADINE (CLARITIN) 10 MG TAB PO SCH (08:20)
[2019-03-25] MEDS: APIXABAN 5 MG (ELIQUIS) TABLET PO SCH ×2 (08:20→20:28)
[2019-03-25] MEDS: ASPIRIN 81 MG CHEW (CHILDREN'S ASA) PO SCH (08:20)
[2019-03-25] MEDS: meTOprolol SUCCINATE 100 MG (TOPROL XL) TAB PO SCH (08:21)
[2019-03-25] MEDS ORDERED: ASPIRIN 325 MG (5 GR) TABLET PO SCH (09:00)
[2019-03-25] MEDS ORDERED: VITA1CAP PO (09:09)
[2019-03-25] MEDS ORDERED: CETI10TA17 PO (09:09)
[2019-03-25] MEDS ORDERED: ASPI-999 PO (09:09)
[2019-03-25] MEDS ORDERED: RT-ALBUINH IH (09:09)
[2019-03-25] MEDS ORDERED: KRIL1CAP18 PO (09:11)
[2019-03-25] MEDS ORDERED: C,E,1CAP PO (09:11)
[2019-03-25] MEDS ORDERED: APIX5TAB PO (09:24)
--- NOTE | 2019-03-25 09:24 | NUR ---
SPOKE WITH THE PATIENT ABOUT HIS MEDICATIONS. HE HAS SOME OF HIS LEAFLETS FROM THE PHARMACY WITH HIM BUT STATES THAT MAY NOT BE ALL HE TAKES AND THERE MAY BE SOME IN THERE HE NO LONGER TAKES. I WENT OVER EACH WITH HIM WELL COMPARING TO THE EXT MED HX. HE VERIFIED THEM TO THE BEST OF HIS ABILITY. IN ADDITION TO WHAT IS SHOWN ON THE EXT MED HX [facility] FILLED: 03-22-19 CETIRIZINE 10MG DAILY #30 12-24-18 PROAIR 2 PUFFS QID PRN 11-22-18 DIGOXIN 250 #30 REMOVED FROM MED REC, PAST DUE AND PATIENT IS NOT SURE HE IS STILL TAKING IT. 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 CARMEN'S OFFICE AND THEY REPORT THEY HAVE DOWN HIS PHARMACY [facility]. THEY DID GIVE SOME SAMPLES OF THE ELIQUIS TO HIM 01-09-19 BUT SHE STATES THEY NORMALLY GIVE 2-3 BOXES AT A TIME WHICH WOULD BE A 2-3 WEEK SUPPLY. NOTED THE PAST DUE DISPENSE DATE ON THE MED REC. OTC MEDS: B COMPLEX HS OCUVITE 1200 ASPIRIN 81MG CHEW DAILY KRILL OIL 1200 HE STATES HE TAKES 6 PILL IN THE MORNING, 2 AT NOON, AND 3 AT HS. THE MED REC REFLECTS THOSE NUMBERS WELL THE SCRIPTS HE HAS FILLED RECENTLY AND OTC MEDS HE REPORTED. THE EXCEPTION IS THE ELIQUIS THAT HE MAY OR MAY NOT BE OUT OF DEPENDING IF HE GETS IT THROUGH ANY OTHER COUPON/VOUCHER/PATIENT ASSISTANCE PROGRAM.
[2019-03-25 10:12] LABS: AMPHETAMINE SCREEN, URINE NEGATIVE (NEGATIVE); BARBITURATE SCREEN URINE NEGATIVE (NEGATIVE); BENZODIAZEPINES SCREEN URINE NEGATIVE (NEGATIVE); CANNABINOID SCREEN, URINE NEGATIVE (NEGATIVE); COCAINE SCREEN URINE NEGATIVE (NEGATIVE); METHADONE STAT NEGATIVE (NEGATIVE); METHAMPHETAMINE SCREEN URINE S NEGATIVE (NEGATIVE); OPIATE SCREEN URINE NEGATIVE (NEGATIVE); OXYCODONE STAT NEGATIVE (NEGATIVE); PROPOXYPHENE STAT NEGATIVE (NEGATIVE); TRICYCLIC ANTIDEPRESSANTS SCRE NEGATIVE (NEGATIVE)
[2019-03-25 10:16] LABS: BILIRUBIN,URINE NEGATIVE (NEGATIVE); CLARITY,URINE CLEAR; COLOR,URINE YELLOW; GLUCOSE, URINE (UA) 2+ (NEGATIVE); KETONES,URINE NEGATIVE (NEGATIVE); LEUKOCYTE ESTERASE ,URINE NEGATIVE (NEGATIVE); NITRITE,URINE NEGATIVE (NEGATIVE); PH,URINE 5.5 (5-9); PROTEIN,URINE 2+ (NEGATIVE)
[2019-03-25 10:22] LABS: BACTERIA,URINE NEGATIVE /HPF; RBC,URINE 0-2 /HPF
--- NOTE | 2019-03-25 10:50 | NUR ---
Pastoral Care Visit.
[2019-03-25 11:43] LABS: ALANINE AMINOTRANSFERASE 47 U/L (0-55); ALBUMIN 3.7 GM/DL (3.2-4.5); ALKALINE PHOSPHATASE 98 U/L (40-136); BILIRUBIN,TOTAL 0.4 MG/DL (0.1-1.0); BUN/CREATININE RATIO 14; CALCIUM 8.2 MG/DL (8.5-10.1); CARBON DIOXIDE 24 MMOL/L (21-32); CHLORIDE 103 MMOL/L (98-107); CREATININE SERUM 1.09 MG/DL (0.60-1.30); GFR ESTIMATED > 60; GLUCOSE 326 MG/DL (70-105); MAGNESIUM 1.8 MG/DL (1.6-2.4); PHOSPHORUS 1.9 MG/DL (2.3-4.7); POTASSIUM 4.4 MMOL/L (3.6-5.0); SODIUM 137 MMOL/L (135-145); TOTAL PROTEIN 6.7 GM/DL (6.4-8.2)
[2019-03-25] MEDS: PIPERACILLIN/TAZOBACTAM (BULK) 4.5 GM in NS (IVPB) 100 ML IV SCH ×2 (12:40→20:28)
[2019-03-25 12:52] LABS: ABG BASE EXCESS 0.7 MMOL/L (-2.5-2.5); ABG OXYGEN SATURATION 100 % (94-100); ABG PCO2 57 MMHG (35-45); ABG PO2 317 MMHG (79-93); ABG TCO2 28.3 MMOL/L (21.0-31.0)
[2019-03-25 12:56] LABS: ABG PH 7.29 (7.37-7.43); ALLENS TEST YES-POS; INSPIRED O2 70%; PATIENT TEMP 36.9; VENTILATOR NO
--- NOTE | 2019-03-25 15:50 | Progress Note ---
Subjective Subjective/Events-last exam Febrile to 38.6 in last 24 hours. On vapotherm but at 70% FiO2. Hypertensive and tachycardic, he has not wanted to use bipap so far. Focused Exam Lactate Level 03/24/19 23:35: Lactic Acid Level 0.94 03/25/19 05:40: Lactic Acid Level 1.18 Objective Exam Last Set of Vital Signs Vital Signs Date Time Temp Pulse Resp B/P (MAP) Pulse Ox O2 Delivery O2 Flow Rate FiO2 03/25/19 15:00 102 14 114/82 (93) 93 NIV Bilevel 50.00 03/25/19 12:29 36.8 03/25/19 12:00 100 Capillary Refill : Less Than 3 Seconds I&O Intake and Output 03/25/19 00:00 Intake Total 650 ml Output Total 350 ml Balance 300 ml Intake Oral 650 ml Output Urine Total 350 ml Daily Weight Change No General: Alert, Mild Distress Lungs: Other (ronchi and expiratory wheezing) Heart: Other (tachycardic) Extremities: No Edema Neuro: Normal Speech Results/Procedures Lab Laboratory Tests 03/24/19 23:35: White Blood Count 4.9, Red Blood Count 4.77, Hemoglobin 13.9, Hematocrit 45, Mean Corpuscular Volume 94, Mean Corpuscular Hemoglobin 29, Mean Corpuscular Hemoglobin Concent 31L, Red Cell Distribution Width 14.1, Platelet Count 207, Mean Platelet Volume 9.4, Neutrophils (%) (Auto) 91H, Lymphocytes (%) (Auto) 6L, Monocytes (%) (Auto) 2, Eosinophils (%) (Auto) 0, Basophils (%) (Auto) 0, Neutrophils # (Auto) 4.4, Lymphocytes # (Auto) 0.3L, Monocytes # (Auto) 0.1, Eosinophils # (Auto) 0.0, Basophils # (Auto) 0.0, Neutrophils % (Manual) 94, Lymphocytes % (Manual) 5, Monocytes % (Manual) 1, Sodium Level 137, Potassium Level 4.7, Chloride Level 102, Carbon Dioxide Level 26, Anion Gap 9, Blood Urea Nitrogen 15, Creatinine 1.12, Estimat Glomerular Filtration Rate > 60, BUN/Creatinine Ratio 13, Glucose Level 194H, Lactic Acid Level 0.94, Calcium Level 8.6, Phosphorus Level 3.0, Magnesium Level 1.8 03/25/19 05:40: White Blood Count 4.3, Red Blood Count 4.70, Hemoglobin 13.8, Hematocrit 45, Mean Corpuscular Volume 95, Mean Corpuscular Hemoglobin 29, Mean Corpuscular Hemoglobin Concent 31L, Red Cell Distribution Width 14.0, Platelet Count 219, Mean Platelet Volume 9.3, Neutrophils (%) (Auto) 89H, Lymphocytes (%) (Auto) 8L, Monocytes (%) (Auto) 3, Eosinophils (%) (Auto) 0, Basophils (%) (Auto) 0, Neutrophils # (Auto) 3.8, Lymphocytes # (Auto) 0.3L, Monocytes # (Auto) 0.1, Eosinophils # (Auto) 0.0, Basophils # (Auto) 0.0, Sodium Level 138, Potassium Level 5.4H, Chloride Level 102, Carbon Dioxide Level 28, Anion Gap 8, Blood Urea Nitrogen 14, Creatinine 1.10, Estimat Glomerular Filtration Rate > 60, BUN/Creatinine Ratio 13, Glucose Level 180H, Lactic Acid Level 1.18, Calcium Level 8.3L, Phosphorus Level 2.9, Magnesium Level 1.9, Corrected Calcium 8.5, Total Bilirubin 0.4, Aspartate Amino Transf (AST/SGOT) 36H, Alanine Aminotransferase (ALT/SGPT) 49, Alkaline Phosphatase 102, B-Type Natriuretic Peptide 95.8, Total Protein 7.0, Albumin 3.8 03/25/19 06:52: Blood Gas Puncture Site LEFT RADIAL, Blood Gas Patient Temperature 36.4, Arterial Blood pH 7.29*L, Arterial Blood Partial Pressure CO2 65H, Arterial Blood Partial Pressure O2 41L, Arterial Blood HCO3 30H, Arterial Blood Total CO2 32.3H, Arterial Blood Oxygen Saturation 69L, Arterial Blood Base Excess 4.0H, Williams Test POSITIVE, Blood Gas Ventilator Setting NO, Blood Gas Inspired Oxygen 70% 03/25/19 09:50: Urine Color YELLOW, Urine Clarity CLEAR, Urine pH 5.5, Urine Specific [place] >=1.030, Urine Protein 2+H, Urine Glucose (UA) 2+H, Urine Ketones NEGATIVE, Urine Nitrite NEGATIVE, Urine Bilirubin NEGATIVE, Urine Urobilinogen 0.2, Urine Leukocyte Esterase NEGATIVE, Urine RBC (Auto) 1+H, Urine RBC 0-2, Urine WBC NONE, Urine Squamous Epithelial Cells NONE, Urine Crystals NONE, Urine Bacteria NEGATIVE, Urine Casts NONE, Urine Mucus NEGATIVE, Urine Culture Indicated NO, Urine Opiates Screen NEGATIVE, Urine Oxycodone Screen NEGATIVE, Urine Methadone Screen NEGATIVE, Urine Propoxyphene Screen NEGATIVE, Urine Barbiturates Screen NEGATIVE, Ur Tricyclic Antidepressants Screen NEGATIVE, Urine Phencyclidine Screen NEGATIVE, Urine Amphetamines Screen NEGATIVE, Urine Methamphetamines Screen NEGATIVE, Urine Benzodiazepines Screen NEGATIVE, Urine Cocaine Screen NEGATIVE, Urine Cannabinoids Screen NEGATIVE 03/25/19 11:05: Sodium Level 137, Potassium Level 4.4, Chloride Level 103, Carbon Dioxide Level 24, Anion Gap 10, Blood Urea Nitrogen 15, Creatinine 1.09, Estimat Glomerular Filtration Rate > 60, BUN/Creatinine Ratio 14, Glucose Level 326H, Calcium Level 8.2L, Corrected Calcium 8.4L, Phosphorus Level 1.9L, Magnesium Level 1.8, Total Bilirubin 0.4, Aspartate Amino Transf (AST/SGOT) 37H, Alanine Aminotransferase (ALT/SGPT) 47, Alkaline Phosphatase 98, Total Protein 6.7, Albumin 3.7, Thyroid Stimulating Hormone (TSH) 0.17L, Free Thyroxine 0.70 03/25/19 12:45: Blood Gas Puncture Site L RAD, Blood Gas Patient Temperature 36.9, Arterial Blood pH 7.29*L, Arterial Blood Partial Pressure CO2 57H, Arterial Blood Partial Pressure O2 317H, Arterial Blood HCO3 27, Arterial Blood Total CO2 28.3, Arterial Blood Oxygen Saturation 100, Arterial Blood Base Excess 0.7, Williams Test YES-POS, Blood Gas Ventilator Setting NO, Blood Gas Inspired Oxygen 70% Microbiology 03/25/19 Blood Culture - Preliminary, Resulted No growth Assessment/Plan Assessment/Plan (1) Flu Status: Acute Assessment & Plan: Oseltamavir (2) Pneumonia Status: Acute Assessment & Plan: Suspect due to influenza with bilateral interstitial infiltrate. On zosyn per Dr. Lora for possible secondary bacterial pneumonia. Qualifiers: (3) Respiratory acidosis Assessment & Plan: Management per Dr. Lora, appreciate recommendations, suspect COPD exacerbation along with influenza. On solumedrol and breathing treatments. May need bipap, discussed with patient. (4) Atrial fibrillation Status: Chronic Assessment & Plan: Resume home rate and apixaban (5) Hyperthyroidism Status: Chronic Assessment & Plan: TSH low but free T4 normal, continue methimazole. (6) Acute hyperkalemia Status: Acute Assessment & Plan: Recheck (7) DVT prophylaxis Status: Acute Assessment & Plan: On apixaban Clinical Quality Measures DVT/VTE Risk/Contraindication: Risk Factor Score Per Nursin RFS Level Per Nursing on Admit: 4+=Very High TYREL SAMUEL MD Mar 25, 2019 15:50
[2019-03-25] MEDS: guaiFENesin/DM (ROBITUSSIN DM) 10 ML UDC PO PRN (18:27)
[2019-03-26] VITALS (23 sets, daily range): BP systolic 104–148; BP diastolic 66–110
[2019-03-26] MEDS: methylPREDNISolone 40 MG/ML (Solu-MEDROL) VIAL IV SCH ×5 (01:23→23:45)
[2019-03-26] MEDS: RT-ALBUTEROL/IPRATROPIUM 3 ML (DUONEB) VIAL INH SCH ×6 (03:17→21:12)
[2019-03-26] MEDS: ACETAMINOPHEN 500 MG TAB (TYLENOL) PO SCH ×4 (03:36→20:10)
[2019-03-26] MEDS: PIPERACILLIN/TAZOBACTAM (BULK) 4.5 GM in NS (IVPB) 100 ML IV SCH ×3 (03:45→20:10)
[2019-03-26 03:56] LABS: HEMOGLOBIN 13.4 G/DL (13.3-17.7); MEAN PLATELET VOLUME 9.7 FL (7.4-10.4); RED CELL DISTRIBUTION WIDTH 14.3 % (10.0-14.5); WHITE BLOOD COUNT 7.8 10^3/uL (4.3-11.0)
[2019-03-26 04:23] LABS: ALKALINE PHOSPHATASE 82 U/L (40-136); BILIRUBIN,TOTAL 0.3 MG/DL (0.1-1.0); BUN/CREATININE RATIO 17; CARBON DIOXIDE 24 MMOL/L (21-32); CHLORIDE 104 MMOL/L (98-107); CREATININE SERUM 1.03 MG/DL (0.60-1.30); GFR ESTIMATED > 60; GLUCOSE 188 MG/DL (70-105); MAGNESIUM 1.9 MG/DL (1.6-2.4); PHOSPHORUS 2.5 MG/DL (2.3-4.7); POTASSIUM 4.6 MMOL/L (3.6-5.0); SODIUM 138 MMOL/L (135-145)
[2019-03-26 04:24] LABS: ALANINE AMINOTRANSFERASE 45 U/L (0-55); ALBUMIN 3.6 GM/DL (3.2-4.5); TOTAL PROTEIN 6.5 GM/DL (6.4-8.2)
[2019-03-26] MEDS ORDERED: FUROSEMIDE 40 MG/4 ML INJ (LASIX) ONE (05:07)
--- NOTE | 2019-03-26 05:09 | Pulmonary Progress Note ---
Subjective Time Seen by a Provider: 06:50 Subjective/Events-last exam complains of SOB however refuses BiPAP. Sepsis Event Evaluation Height, Weight, BMI Height: 6'0.00" Weight: 325lbs. 0.0oz. [id number]; 45.76 BMI Method:Stated Focused Exam Lactate Level 03/24/19 23:35: Lactic Acid Level 0.94 03/25/19 05:40: Lactic Acid Level 1.18 Exam Exam Vital Signs Date Time Temp Pulse Resp B/P (MAP) Pulse Ox O2 Delivery O2 Flow Rate FiO2 03/26/19 03:45 36.3 03/26/19 03:17 94 Vapotherm 28.00 70 03/26/19 01:00 108 03/26/19 00:00 Vapotherm 30.00 70 03/26/19 00:00 102 20 126/86 (99) 95 Vapotherm 30.00 70.00 03/26/19 00:00 36.5 03/25/19 23:12 93 Vapotherm 30.00 70 03/25/19 23:00 97 12 112/82 (92) Vapotherm 30.00 70.00 03/25/19 22:00 98 25 144/97 (113) 94 Vapotherm 30.00 70.00 03/25/19 21:00 96 11 98/73 (81) 94 Vapotherm 30.00 70.00 03/25/19 20:00 Vapotherm 30.00 70 03/25/19 20:00 93 23 109/68 (82) 94 Vapotherm 30.00 70.00 03/25/19 19:29 36.6 03/25/19 19:29 36.6 03/25/19 19:00 100 03/25/19 19:00 100 18 99/80 (86) 95 Vapotherm 30.00 70.00 03/25/19 18:00 105 13 141/86 (104) 95 Vapotherm 30.00 70.00 03/25/19 17:01 92 Vapotherm 30.00 70 03/25/19 17:00 94 10 117/82 (94) 96 Vapotherm 30.00 70.00 03/25/19 16:18 36.7 03/25/19 16:00 NIV Bilevel 50 03/25/19 16:00 104 14 109/70 (83) 97 NIV Bilevel 50.00 03/25/19 15:00 102 14 114/82 (93) 93 NIV Bilevel 50.00 03/25/19 15:00 90 23 94 50.00 03/25/19 14:00 93 10 93/64 (74) 92 NIV Bilevel 50.00 03/25/19 13:00 108 17 113/70 (84) 97 NIV Bilevel 50.00 03/25/19 12:54 117 03/25/19 12:29 36.8 03/25/19 12:00 110 28 108/78 (88) 94 NIV Bilevel 100.00 03/25/19 12:00 NIV Bilevel 100 03/25/19 11:14 121 30 94 100.00 03/25/19 11:00 142 13 118/78 (91) 94 NIV Bilevel 100.00 03/25/19 10:57 NIV Bilevel 100.00 03/25/19 10:00 142 13 118/78 (91) 94 Vapotherm 30.00 70.00 03/25/19 09:46 93 Vapotherm 30.00 70 03/25/19 09:46 37.0 133 93 70 03/25/19 09:30 37.0 03/25/19 09:00 138 17 133/88 (103) 100 Vapotherm 30.00 70.00 03/25/19 08:00 123 154/102 (119) 92 Vapotherm 30.00 70.00 03/25/19 08:00 Vapotherm 30.00 70 03/25/19 08:00 37.3 03/25/19 07:09 94 Vapotherm 30.00 70 03/25/19 07:00 106 118/76 (90) 91 Vapotherm 30.00 70.00 03/25/19 07:00 114 03/25/19 06:00 114 130/94 (106) 89 Vapotherm 30.00 70.00 I & O 03/26/19 07:00 Intake Total 3735 ml Output Total 1550 ml Balance 2185 ml Height & Weight Height: 6'0.00" Weight: 325lbs. 0.0oz. 147.678749kw; 45.76 BMI Method:Stated General Appearance: Moderate Distress, Obese Respiratory: No Accessory Muscle Use, No Respiratory Distress, Decreased Breath Sounds, Wheezing, Other (a few fine basilar rales without wheezing or rhonchi elsewhere the chest is clear) Cardiovascular: No Edema, No Gallop, No JVD, No Murmur, Irregularly Irregular Capillary Refill: Less Than 3 Seconds Extremity: Normal Capillary Refill, Normal Inspection, Normal Range of Motion, Non Tender, No Calf Tenderness, No Pedal Edema Neurologic/Psychiatric: Alert, Oriented x3 Skin: Normal Color, Warm/Dry, Damp (with a flushed appearance) Results Lab Laboratory Tests 03/24/19 23:35 03/25/19 05:40 03/25/19 11:05 03/26/19 03:20 Assessment/Plan Assessment/Plan Acute respiratory failure with pneumonia and influenza -zosyn -Oxygen -Continue Solumedrol -Pt is refusing BiPAP. Currently using Vapotherm Influenza A -Tamiflu Afib rvr `-Cardizem gtt -Eliquis -Cardiology following Hx of hyperthyroid -Methimazole HELEN DO DO Mar 26, 2019 05:09
[2019-03-26] MEDS ORDERED: FUROSEMIDE 40 MG/4 ML INJ (LASIX) IVP ONE (05:15)
[2019-03-26] MEDS: MAGNESIUM 1 GM/100 ML IVPB 100 ML IV SCH (05:20)
[2019-03-26] MEDS: POTASSIUM CL 10MEQ/50ML IVPB 50 ML IV SCH (05:20)
[2019-03-26] MEDS: KCL 20 MEQ TAB (K-DUR) PO SCH (05:21)
[2019-03-26 05:35] LABS: ABG BASE EXCESS 4.4 MMOL/L (-2.5-2.5); ABG OXYGEN SATURATION 73 % (94-100); ABG PCO2 66 MMHG (35-45); ABG PO2 45 MMHG (79-93); ABG TCO2 32.8 MMOL/L (21.0-31.0)
[2019-03-26 05:40] LABS: ABG PH 7.29 (7.37-7.43); ALLENS TEST POSITIVE; INSPIRED O2 65%; PATIENT TEMP 36.3; VENTILATOR NO
--- NOTE | 2019-03-26 07:04 | Diagnostic Imaging Report ---
INDICATION: Dyspnea. TECHNIQUE: Single view chest 3:30 AM. CORRELATION STUDY: 03/25/2019 FINDINGS: Cardiac enlargement with component of vascular congestion persisting. Areas of patchy infiltrate-like density particularly mid and lower lung frye left greater than right stable to slightly improved. IMPRESSION: 1. Cardiac enlargement and mild vascular congestion. Bilateral pulmonary infiltrate-like densities left greater than right and stable to slightly improved. Dictated by: Dictated on workstation # [id number]
[2019-03-26] MEDS: guaiFENesin/DM (ROBITUSSIN DM) 10 ML UDC PO PRN (08:00)
[2019-03-26] MEDS: FAMOTIDINE 20 MG (PEPCID) TABLET PO SCH ×2 (08:00→20:11)
[2019-03-26] MEDS: APIXABAN 5 MG (ELIQUIS) TABLET PO SCH ×2 (08:00→20:11)
[2019-03-26] MEDS: meTOprolol SUCCINATE 100 MG (TOPROL XL) TAB PO SCH (08:01)
[2019-03-26] MEDS: LORATADINE (CLARITIN) 10 MG TAB PO SCH (08:02)
[2019-03-26] MEDS: OSELTAMIVIR 75 MG (TAMIFLU) CAPSULE PO SCH ×2 (08:02→20:10)
[2019-03-26] MEDS: ASPIRIN 81 MG CHEW (CHILDREN'S ASA) PO SCH (08:02)
[2019-03-26] MEDS: METHIMAZOLE TABLET 5 MG TABLET PO SCH (08:02)
[2019-03-26] MEDS: FLUTICASONE NASAL SPRAY (FLONASE) 16 GM BTL NS SCH (08:03)
[2019-03-26] MEDS: dilTIAZem DRIP PRE-MIX 125 ML IV SCH ×2 (13:23→21:58)
[2019-03-26] MEDS: NS IV 1000 ML 1,000 ML IV SCH (13:31)
--- NOTE | 2019-03-26 13:44 | Consultation-Cardiology ---
HPI-Cardiology Cardiology Consultation: Date of Consultation 03/26/19 Date of Admission Attending Physician Keyana Harrison MD Admitting Physician Matt Wagner MD Consulting Physician DI DIAZ [id number] Patient Social History Alcohol Use: Denies Use Recreational Drug Use: No Smoking Status: Former Smoker Former smoker/When Quit: Feb 20, 2009 2nd Hand Smoke Exposure: No Recent Foreign Travel: No Recent Infectious Disease Expo: No Physical Abuse Screen: No Sexual Abuse: No Immunizations Up To Date Tetanus Booster (TDap): Unknown Date of Pneumonia Vaccine: Mar 23, 2018 Past Medical History PMH As described under Assessment. Family Medical History Family Medical History: He reports family history of CVA and TIA's in his mother and father. He reports he has 2 brothers with "heart probems", one has a-fib. Family History: FH: emphysema 19 FATHER Prostatitis 19 FATHER Allergies and Home Medications Allergies Coded Allergies: clindamycin (Verified Allergy, Unknown, 04/25/16) Uncoded Allergies: CEYANE PEPPER (Allergy, Unknown, 04/25/16) ENDOMETHICIN (Allergy, Unknown, 04/25/16) Home Medications Albuterol Sulfate 1 Puff Puff, 2 PUFF IH QID PRN for SHORTNESS OF BREATH, (Reported) 1 PUFF = 90 MCG Apixaban 5 Mg Tablet, 5 MG PO BID, (Reported) LAST RECEIVED SOME SAMPLES 01-09-19 (2-3 WEEK SUPPLY MAYBE) Aspirin 81 Mg Tab.chew, 81 MG PO DAILY, (Reported) Atorvastatin Calcium 40 Mg Tablet, 40 MG PO HS, (Reported) C,E,Zinc,Copper 11/Hwrwp5n/Lut 1 Each Capsule, 1 CAP PO 1200, (Reported) Cetirizine HCl 10 Mg Tablet, 10 MG PO DAILY, (Reported) Diltiazem HCl 360 Mg Cap.er.24h, 360 MG PO DAILY, (Reported) Fluticasone Propionate 16 Gm [place].susp, 2 SPRAYS NS DAILY, (Reported) Krill/Om-3/Dha/Epa/Phospho/Ast 1 Each Capsule, 1,000 MG PO 1200, (Reported) Methimazole 5 Mg Tablet, 5 MG PO DAILY, (Reported) Metoprolol Succinate 50 Mg Tab.er.24h, 50 MG PO DAILY, (Reported) Vitamin B Complex 1 Each Capsule, 1 CAP PO HS, (Reported) Physical Exam-Cardiology Physical Exam Vital Signs/I&O 03/27/19 03/27/19 03/27/19 03/28/19 22:00 22:16 23:00 00:00 Pulse 110 117 Resp 33 27 B/P (MAP) 112/64 (80) 115/75 (88) Pulse Ox 94 93 97 O2 Delivery Vapotherm Vapotherm Vapotherm Vapotherm O2 Flow Rate 30.00 30.00 30.00 30.00 60.00 60.00 FiO2 60 60 03/28/19 03/28/19 03/28/19 03/28/19 00:00 01:00 01:00 02:00 Pulse 122 112 109 93 Resp 23 B/P (MAP) 123/88 (100) 105/69 (81) 112/68 (83) Pulse Ox 95 93 96 O2 Delivery Vapotherm Vapotherm Vapotherm O2 Flow Rate 30.00 30.00 30.00 60.00 60.00 60.00 03/28/19 03/28/19 03/28/19 03/28/19 02:26 02:32 03:00 04:00 Pulse 112 B/P (MAP) 102/71 (81) Pulse Ox 92 92 95 O2 Delivery Vapotherm Vapotherm Vapotherm Vapotherm O2 Flow Rate 30.00 30.00 30.00 30.00 60.00 FiO2 60 60 60 03/28/19 03/28/19 03/28/19 03/28/19 04:00 05:00 06:00 07:00 Pulse 98 101 118 146 Resp 18 B/P (MAP) 102/70 (81) 105/70 (82) 101/68 (79) Pulse Ox 98 96 96 O2 Delivery Vapotherm Vapotherm Vapotherm O2 Flow Rate 30.00 30.00 30.00 60.00 60.00 60.00 03/28/19 03/28/19 03/28/19 03/28/19 07:00 07:19 08:00 09:00 Pulse 154 144 151 Resp 31 27 32 B/P (MAP) 123/90 (101) 105/56 (72) 94/48 (63) Pulse Ox 92 91 93 97 O2 Delivery Vapotherm Vapotherm Vapotherm Vapotherm O2 Flow Rate 30.00 30.00 30.00 30.00 60.00 60.00 60.00 FiO2 60 03/28/19 00:00 Intake Total 1400 ml Output Total 925 ml Balance 475 ml Capillary Refill : Less Than 3 Seconds Data Review Labs Laboratory Tests 03/27/19 15:58: Glucometer 276H 03/27/19 20:02: Glucometer 223H 03/28/19 03:10: White Blood Count 8.4, Red Blood Count 4.65, Hemoglobin 13.1L, Hematocrit 44, Mean Corpuscular Volume 95, Mean Corpuscular Hemoglobin 28, Mean Corpuscular Hemoglobin Concent 30L, Red Cell Distribution Width 14.9H, Platelet Count 210, Mean Platelet Volume 10.1, Sodium Level 141, Potassium Level 4.3, Chloride Level 101, Carbon Dioxide Level 30, Anion Gap 10, Blood Urea Nitrogen 19H, Creatinine 1.04, Estimat Glomerular Filtration Rate > 60, BUN/Creatinine Ratio 18, Glucose Level 187H, Calcium Level 7.9L, Phosphorus Level 2.6, Magnesium Level 2.2 Microbiology 03/25/19 Blood Culture - Preliminary, Resulted No growth A/P-Cardiology Assessment/Admission Diagnosis Relative hypotension, asymptomatic P.a-fib (first documented on 02-21-17) - Holter of 11-12-18 showed a-fib throughout the study with a generally rapid vent response; av HR 104 bpm. No signif lefty. One 3 beat run of WCT at approx 170 bpm Card cath of 02/23/17: Mild CAD (mild ostial disease of LCX and LAD), no obstructive CAD, global hypokinesis, EF approx 35% (eval impaired by a rapid vent rate), mild MR, elevated LVEDP MPI of Dec 2018 showed no evidence of signif myocardial ischemia or infarction. LVEF 42%. 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 Vascular u/s of R lower limb did not show significant proximal vascular issue (flow in R DP was monophasic suggestive of possible distal disease, but pt does not report any signs or symptoms of limb claudication or of distal vascular compromise) Clinical Quality Measures DVT/VTE Risk/Contraindication: Risk Factor Score Per Nursin RFS Level Per Nursing on Admit: 4+=Very High DI MOFFETT Mar 26, 2019 13:44
--- NOTE | 2019-03-26 14:32 | Consultation-Cardiology ---
HPI-Cardiology Cardiology Consultation: Date of Consultation 03/26/19 Time Seen by a Provider: 12:15 Date of Admission 03/24/19 Attending Physician Keyana Harrison MD Admitting Physician Matt Wagner MD Consulting Physician EVELIA CARMEN MD, MA, FACP, FACC, FSCAI, CCDS HPI: Chief Complaint: CC: Shortness of breath, malaise HPI 63 yo man admitted to Dr Harrison's [facility] on 03/24/19 with increasing shortness of breath and gen malaise and weakness. We have been asked to see him today because of A Fib with RVR. He continues to have the symptoms he presented with. He denies cp or palp or syncope. He has chronic, intermittent leg swelling Review of Systems-Cardiology Review of Systems Constitutional: As described under HPI Eyes: No vision change Ears/Nose/Throat: No ear discharge; nasal drainage; No recent hearing loss Respiratory: As described under HPI Cardiovascular: As described under HPI Gastrointestinal: No constipation, No diarrhea, No nausea, No vomiting Genitourinary: No dysuria, No hematuria (chronic), No urine frequency changes Musculoskeletal: back pain Skin: No rash, No ulcerations Psychiatric/Neurological: No seizure, No focal weakness, No syncope Hematologic: No bleeding abnormalities WKS-[id number]-[id number] Hx Patient Social History Alcohol Use: Denies Use Recreational Drug Use: No Smoking Status: Former Smoker Former smoker/When Quit: Feb 20, 2009 2nd Hand Smoke Exposure: No Recent Foreign Travel: No Recent Infectious Disease Expo: No Physical Abuse Screen: No Sexual Abuse: No Immunizations Up To Date Tetanus Booster (TDap): Unknown Date of Pneumonia Vaccine: Mar 23, 2018 Past Medical History PMH As described under Assessment. Family Medical History Family Medical History: He reports family history of CVA and TIA's in his mother and father. He reports he has 2 brothers with "heart probems", one has a-fib. Family History: FH: emphysema 19 FATHER Prostatitis 19 FATHER Allergies and Home Medications Allergies Coded Allergies: clindamycin (Verified Allergy, Unknown, 04/25/16) Uncoded Allergies: CEYANE PEPPER (Allergy, Unknown, 04/25/16) ENDOMETHICIN (Allergy, Unknown, 04/25/16) Home Medications Albuterol Sulfate 1 Puff Puff, 2 PUFF IH QID PRN for SHORTNESS OF BREATH, (Reported) 1 PUFF = 90 MCG Apixaban 5 Mg Tablet, 5 MG PO BID, (Reported) LAST RECEIVED SOME SAMPLES 01-09-19 (2-3 WEEK SUPPLY MAYBE) Aspirin 81 Mg Tab.chew, 81 MG PO DAILY, (Reported) Atorvastatin Calcium 40 Mg Tablet, 40 MG PO HS, (Reported) C,E,Zinc,Copper 11/Ccjix9d/Lut 1 Each Capsule, 1 CAP PO 1200, (Reported) Cetirizine HCl 10 Mg Tablet, 10 MG PO DAILY, (Reported) Diltiazem HCl 360 Mg Cap.er.24h, 360 MG PO DAILY, (Reported) Fluticasone Propionate 16 Gm [place].susp, 2 SPRAYS NS DAILY, (Reported) Krill/Om-3/Dha/Epa/Phospho/Ast 1 Each Capsule, 1,000 MG PO 1200, (Reported) Methimazole 5 Mg Tablet, 5 MG PO DAILY, (Reported) Metoprolol Succinate 50 Mg Tab.er.24h, 50 MG PO DAILY, (Reported) Vitamin B Complex 1 Each Capsule, 1 CAP PO HS, (Reported) Patient Home Medication List Home Medication List Reviewed: Yes Physical Exam-Cardiology Physical Exam Vital Signs/I&O 03/26/19 03/26/19 03/26/19 03/26/19 03:00 03:17 03:25 03:45 Temp 36.3 Pulse 109 97 Resp 19 B/P (MAP) 127/90 (102) Pulse Ox 92 94 92 O2 Delivery Vapotherm Vapotherm Vapotherm O2 Flow Rate 30.00 28.00 26.00 70.00 65.00 FiO2 70 03/26/19 03/26/19 03/26/19 03/26/19 04:00 04:00 05:00 06:00 Pulse 104 95 120 Resp 14 16 28 B/P (MAP) 118/84 (95) 118/75 (89) 132/106 (115) Pulse Ox 93 92 91 O2 Delivery Vapotherm Vapotherm Vapotherm Vapotherm O2 Flow Rate 26.00 26.00 26.00 26.00 65.00 65.00 65.00 FiO2 65 03/26/19 03/26/19 03/26/19 03/26/19 07:00 07:00 07:19 08:00 Pulse 142 134 Resp 10 B/P (MAP) 130/103 (112) Pulse Ox 87 93 O2 Delivery Vapotherm Vapotherm Vapotherm O2 Flow Rate 40.00 40.00 40.00 65.00 FiO2 65 65 03/26/19 03/26/19 03/26/19 03/26/19 08:00 08:00 09:00 10:00 Temp 36.9 Pulse 154 138 146 Resp 9 18 23 B/P (MAP) 134/110 (118) 118/83 (95) 128/104 (112) Pulse Ox 93 93 93 O2 Delivery Vapotherm Vapotherm Vapotherm O2 Flow Rate 40.00 40.00 40.00 65.00 65.00 65.00 03/26/19 03/26/19 03/26/19 03/26/19 10:17 11:00 12:00 12:00 Temp 35.8 Pulse 144 141 Resp 29 35 B/P (MAP) 113/84 (94) Pulse Ox 94 95 83 O2 Delivery Vapotherm Vapotherm Vapotherm O2 Flow Rate 40.00 40.00 40.00 65.00 65.00 FiO2 65 03/26/19 03/26/19 03/26/19 03/26/19 12:00 13:00 13:00 14:00 Pulse 129 135 118 Resp 20 14 B/P (MAP) 117/79 (92) 120/90 (100) Pulse Ox 92 89 O2 Delivery Vapotherm Vapotherm Vapotherm O2 Flow Rate 40.00 40.00 40.00 65.00 65.00 FiO2 65 03/26/19 00:00 Intake Total 3255 ml Output Total 400 ml Balance 2855 ml Capillary Refill : Less Than 3 Seconds Constitutional: AAO x 3, well-developed, well-nourished HEENT: PERRL, EOMI, hearing is well preserved; No xanthelasmas are seen Neck: carotid pulses are 2 + bilaterally, with good upstrokes Respiratory: No accessory muscle use; other (fair air entry, scattered rhochi and basal coarse crackles) Cardiovascular: irregularly irregular, tachycardia, S1 and S2, systolic murmur (soft NANNETTE at card base) Gastrointestinal: No tender; soft; No guarding, No rebound; audible bowel sounds Extremities: No clubbing, No cyanosis, No significant edema Neurologic/Psychiatric: oriented x 3, other (moves all limbs equally) Skin: normal color, warm/dry; No cyanosis, No rash on exposed areas, No ulcerations on exposed areas Data Review Labs Laboratory Tests 03/26/19 03:20: White Blood Count 7.8, Red Blood Count 4.61, Hemoglobin 13.4, Hematocrit 44, Mean Corpuscular Volume 95, Mean Corpuscular Hemoglobin 29, Mean Corpuscular Hemoglobin Concent 31L, Red Cell Distribution Width 14.3, Platelet Count 204, Mean Platelet Volume 9.7, Sodium Level 138, Potassium Level 4.6, Chloride Level 104, Carbon Dioxide Level 24, Anion Gap 10, Blood Urea Nitrogen 18, Creatinine 1.03, Estimat Glomerular Filtration Rate > 60, BUN/Creatinine Ratio 17, Glucose Level 188H, Calcium Level 8.0L, Corrected Calcium 8.3L, Phosphorus Level 2.5, Magnesium Level 1.9, Total Bilirubin 0.3, Aspartate Amino Transf (AST/SGOT) 38H, Alanine Aminotransferase (ALT/SGPT) 45, Alkaline Phosphatase 82, Total Protein 6.5, Albumin 3.6 03/26/19 05:29: Blood Gas Puncture Site LEFT RADIAL, Blood Gas Patient Temperature 36.3, Arterial Blood pH 7.29*L, Arterial Blood Partial Pressure CO2 66H, Arterial Blood Partial Pressure O2 45L, Arterial Blood HCO3 31H, Arterial Blood Total CO2 32.8H, Arterial Blood Oxygen Saturation 73L, Arterial Blood Base Excess 4.4H, Williams Test POSITIVE, Blood Gas Ventilator Setting NO, Blood Gas Inspired Oxygen 65% Microbiology 03/25/19 Blood Culture - Preliminary, Resulted No growth Laboratory Tests 03/24/19 23:35 03/25/19 05:40 03/25/19 11:05 03/26/19 03:20 A/P-Cardiology Assessment/Admission Diagnosis Influenza and probable pneumonia, being managed by the Med and the ICU services A Fib with RVR. Has h/o P.a-fib (first documented on 02-21-17) - Holter of 11-12-18 showed a-fib throughout the study with a generally rapid vent response Card cath of 02/23/17: Mild CAD (mild ostial disease of LCX and LAD), no obstructive CAD, global hypokinesis, EF approx 35% (eval impaired by a rapid vent rate), mild MR, elevated LVEDP MPI of Dec 2018 showed no evidence of signif myocardial ischemia or infarction. LVEF 42%. 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 Vascular u/s of R lower limb did not show significant proximal vascular issue (flow in R DP was monophasic suggestive of possible distal disease, but pt does not report any signs or symptoms of limb claudication or of distal vascular compromise) Discussion and Recomendations * iv diltiazem as needed and as tolerated * We recommend iv fluids * Continue oral dilt and beta-blockers * Continue apixaban for stroke prophylaxis * Monitor labs closely Clinical Quality Measures DVT/VTE Risk/Contraindication: Risk Factor Score Per Nursin RFS Level Per Nursing on Admit: 4+=Very High EVELIA CARMEN MD FACP FAC CCDS Mar 26, 2019 14:32
--- NOTE | 2019-03-26 15:42 | Progress Note ---
Subjective Subjective/Events-last exam Afebrile, continues to have high supplemental oxygen requirement but is feeling somewhat better. Focused Exam Lactate Level 03/24/19 23:35: Lactic Acid Level 0.94 03/25/19 05:40: Lactic Acid Level 1.18 Objective Exam Last Set of Vital Signs Vital Signs Date Time Temp Pulse Resp B/P (MAP) Pulse Ox O2 Delivery O2 Flow Rate FiO2 03/26/19 14:40 Vapotherm 40.00 60.00 03/26/19 14:36 94 65 03/26/19 14:00 118 14 120/90 (100) 03/26/19 12:00 35.8 Capillary Refill : Less Than 3 Seconds I&O Intake and Output 03/26/19 00:00 Intake Total 3860 ml Output Total 1370 ml Balance 2490 ml Intake Oral 1740 ml IV Total 2120 ml Output Urine Total 1370 ml # Voids 2 General: Alert, No Acute Distress Lungs: Other (decreased air movement) Heart: Other (irregular, rapid) Neuro: Normal Speech Psych/Mental Status: Mental Status NL Results/Procedures Lab Laboratory Tests 03/26/19 03:20: White Blood Count 7.8, Red Blood Count 4.61, Hemoglobin 13.4, Hematocrit 44, Mean Corpuscular Volume 95, Mean Corpuscular Hemoglobin 29, Mean Corpuscular Hemoglobin Concent 31L, Red Cell Distribution Width 14.3, Platelet Count 204, Mean Platelet Volume 9.7, Sodium Level 138, Potassium Level 4.6, Chloride Level 104, Carbon Dioxide Level 24, Anion Gap 10, Blood Urea Nitrogen 18, Creatinine 1.03, Estimat Glomerular Filtration Rate > 60, BUN/Creatinine Ratio 17, Glucose Level 188H, Calcium Level 8.0L, Corrected Calcium 8.3L, Phosphorus Level 2.5, Magnesium Level 1.9, Total Bilirubin 0.3, Aspartate Amino Transf (AST/SGOT) 38H, Alanine Aminotransferase (ALT/SGPT) 45, Alkaline Phosphatase 82, Total Protein 6.5, Albumin 3.6 03/26/19 05:29: Blood Gas Puncture Site LEFT RADIAL, Blood Gas Patient Temperature 36.3, Arterial Blood pH 7.29*L, Arterial Blood Partial Pressure CO2 66H, Arterial Blood Partial Pressure O2 45L, Arterial Blood HCO3 31H, Arterial Blood Total CO2 32.8H, Arterial Blood Oxygen Saturation 73L, Arterial Blood Base Excess 4.4H, Williams Test POSITIVE, Blood Gas Ventilator Setting NO, Blood Gas Inspired Oxygen 65% Microbiology 03/25/19 Blood Culture - Preliminary, Resulted No growth Assessment/Plan Assessment/Plan (1) Flu Status: Acute Assessment & Plan: Oseltamavir (2) Pneumonia Status: Acute Assessment & Plan: Suspect due to influenza with bilateral interstitial infiltrate. On zosyn per Dr. Lora for possible secondary bacterial pneumonia. Qualifiers: (3) Respiratory acidosis Assessment & Plan: Management per Dr. Lora, appreciate recommendations, suspect COPD exacerbation along with influenza. On solumedrol and breathing treatments. May need bipap, discussed with patient. (4) Atrial fibrillation Status: Chronic Assessment & Plan: Resume home rate control meds and apixaban 2/4 heart rate rapid in spite of home meds, consult Cardiology (5) Hyperthyroidism Status: Chronic Assessment & Plan: TSH low but free T4 normal, continue methimazole. (6) Acute hyperkalemia Status: Acute Assessment & Plan: Recheck (7) DVT prophylaxis Status: Acute Assessment & Plan: On apixaban Clinical Quality Measures DVT/VTE Risk/Contraindication: Risk Factor Score Per Nursin RFS Level Per Nursing on Admit: 4+=Very High TYREL SAMUEL MD Mar 26, 2019 15:42
[2019-03-27] VITALS (24 sets, daily range): BP systolic 77–125; BP diastolic 62–95
[2019-03-27] MEDS: guaiFENesin/DM (ROBITUSSIN DM) 10 ML UDC PO PRN (00:53)
[2019-03-27] MEDS: RT-ALBUTEROL/IPRATROPIUM 3 ML (DUONEB) VIAL INH SCH ×6 (01:34→22:15)
[2019-03-27] MEDS: PIPERACILLIN/TAZOBACTAM (BULK) 4.5 GM in NS (IVPB) 100 ML IV SCH ×3 (03:24→19:42)
[2019-03-27] MEDS: ACETAMINOPHEN 500 MG TAB (TYLENOL) PO SCH ×4 (03:24→21:33)
[2019-03-27] MEDS: dilTIAZem DRIP PRE-MIX 125 ML IV SCH ×2 (03:28→19:54)
[2019-03-27 03:54] LABS: HEMOGLOBIN 13.3 G/DL (13.3-17.7); RED CELL DISTRIBUTION WIDTH 14.5 % (10.0-14.5); WHITE BLOOD COUNT 9.7 10^3/uL (4.3-11.0)
[2019-03-27 04:11] LABS: ALANINE AMINOTRANSFERASE 46 U/L (0-55); ALBUMIN 3.5 GM/DL (3.2-4.5); ALKALINE PHOSPHATASE 75 U/L (40-136); BILIRUBIN,TOTAL 0.3 MG/DL (0.1-1.0); BUN/CREATININE RATIO 18; CALCIUM 7.6 MG/DL (8.5-10.1); CARBON DIOXIDE 28 MMOL/L (21-32); CHLORIDE 100 MMOL/L (98-107); GFR ESTIMATED > 60; GLUCOSE 247 MG/DL (70-105); PHOSPHORUS 2.2 MG/DL (2.3-4.7); SODIUM 138 MMOL/L (135-145); TOTAL PROTEIN 6.5 GM/DL (6.4-8.2)
[2019-03-27] MEDS: MAGNESIUM 1 GM/100 ML IVPB 100 ML IV SCH (04:57)
[2019-03-27] MEDS: POTASSIUM CL 10MEQ/50ML IVPB 50 ML IV SCH (04:57)
[2019-03-27] MEDS: KCL 20 MEQ TAB (K-DUR) PO SCH (04:57)
--- NOTE | 2019-03-27 05:28 | Pulmonary Progress Note ---
Subjective Date Seen by a Provider: Mar 27, 2019 Time Seen by a Provider: 05:25 Subjective/Events-last exam Pt complains of BiPAP mask. He states it has a bad smell. SOB is stable. Sepsis Event Evaluation Height, Weight, BMI Height: 6'0.00" Weight: 325lbs. 0.0oz. [id number]; 45.76 BMI Method:Stated Focused Exam Lactate Level 03/24/19 23:35: Lactic Acid Level 0.94 03/25/19 05:40: Lactic Acid Level 1.18 Exam Exam Vital Signs Date Time Temp Pulse Resp B/P (MAP) Pulse Ox O2 Delivery O2 Flow Rate FiO2 03/27/19 04:00 98 102/70 (81) 98 Vapotherm 35.00 60.00 03/27/19 04:00 Vapotherm 35.00 60 03/27/19 03:00 112 102/71 (81) 95 Vapotherm 35.00 60.00 03/27/19 02:00 93 112/68 (83) Vapotherm 35.00 60.00 03/27/19 01:35 94 Vapotherm 35.00 60 03/27/19 01:00 133 03/27/19 01:00 133 105/69 (81) 93 Vapotherm 35.00 60.00 03/27/19 00:00 103 31 107/79 (88) 92 Vapotherm 35.00 60.00 03/27/19 00:00 37.0 03/27/19 00:00 Vapotherm 35.00 60 03/26/19 23:00 114 27 120/66 (84) 92 Vapotherm 35.00 60.00 03/26/19 22:00 141 26 129/74 (92) 91 Vapotherm 35.00 60.00 03/26/19 21:13 94 Vapotherm 40.00 60 03/26/19 21:11 142 28 95 Vapotherm 35.00 60.00 03/26/19 21:00 101 10 121/79 (93) 90 Vapotherm 40.00 60.00 03/26/19 20:00 36.9 03/26/19 20:00 122 20 146/73 (97) 92 Vapotherm 40.00 60.00 03/26/19 20:00 Vapotherm 40.00 65 03/26/19 19:00 136 03/26/19 19:00 136 32 104/82 (89) 92 Vapotherm 40.00 60.00 03/26/19 18:00 120 16 139/104 (116) 93 Vapotherm 40.00 60.00 03/26/19 17:54 94 Vapotherm 40.00 65 03/26/19 17:00 131 22 122/86 (98) 94 Vapotherm 40.00 60.00 03/26/19 16:00 36.6 03/26/19 16:00 133 22 148/93 (111) 92 Vapotherm 40.00 60.00 03/26/19 16:00 Vapotherm 40.00 65 03/26/19 15:00 137 13 138/97 (111) 92 Vapotherm 40.00 60.00 03/26/19 14:40 Vapotherm 40.00 60.00 03/26/19 14:36 94 Vapotherm 40.00 65 03/26/19 14:00 118 14 120/90 (100) 89 Vapotherm 40.00 65.00 03/26/19 13:00 135 20 117/79 (92) 92 Vapotherm 40.00 65.00 03/26/19 13:00 129 03/26/19 12:00 Vapotherm 40.00 65 03/26/19 12:00 141 35 113/84 (94) 83 Vapotherm 40.00 65.00 03/26/19 12:00 35.8 03/26/19 11:00 144 29 95 Vapotherm 40.00 65.00 03/26/19 10:17 94 Vapotherm 40.00 65 03/26/19 10:00 146 23 128/104 (112) 93 Vapotherm 40.00 65.00 03/26/19 09:00 138 18 118/83 (95) 93 Vapotherm 40.00 65.00 03/26/19 08:00 36.9 03/26/19 08:00 154 9 134/110 (118) 93 Vapotherm 40.00 65.00 03/26/19 08:00 Vapotherm 40.00 65 03/26/19 07:19 93 Vapotherm 40.00 65 03/26/19 07:00 134 2/4/20 07:00 142 10 130/103 (112) 87 Vapotherm 40.00 65.00 03/26/19 06:00 120 28 132/106 (115) 91 Vapotherm 26.00 65.00 I & O 03/27/19 07:00 Intake Total 3280 ml Output Total 4650 ml Balance -1370 ml Height & Weight Height: 6'0.00" Weight: 325lbs. 0.0oz. [id number]; 45.76 BMI Method:Stated General Appearance: Anxious, Mild Distress, Obese HEENT: Pharynx Normal Respiratory: No Accessory Muscle Use, No Respiratory Distress, Decreased Breath Sounds, Wheezing, Other (a few fine basilar rales without wheezing or rhonchi elsewhere the chest is clear) Cardiovascular: No Edema, No Gallop, No JVD, No Murmur, Irregularly Irregular Capillary Refill: Less Than 3 Seconds Gastrointestinal: non tender, soft Extremity: Normal Capillary Refill, Normal Inspection, Normal Range of Motion, Non Tender, No Calf Tenderness, No Pedal Edema Neurologic/Psychiatric: Alert, Oriented x3 Skin: Normal Color, Warm/Dry, Damp (with a flushed appearance) Results Lab Laboratory Tests 03/25/19 05:40 03/25/19 11:05 03/26/19 03:20 03/27/19 03:15 Assessment/Plan Assessment/Plan Acute respiratory failure with pneumonia and influenza -zosyn -Oxygen -Continue Solumedrol -Pt is refusing BiPAP. Currently using Vapotherm Agitation/anxiety -Start risperadol Influenza A -Tamiflu Afib rvr `-Cardizem gtt -Eliquis -Cardiology following Hx of hyperthyroid -Methimazole HELEN DO DO Mar 27, 2019 05:28
[2019-03-27] MEDS: methylPREDNISolone 40 MG/ML (Solu-MEDROL) VIAL IV SCH ×4 (06:22→23:46)
--- NOTE | 2019-03-27 07:50 | Progress Note - Cardiology ---
Cardiology SOAP Progress Note Subjective: Report gen malaise and weakness Denies cp Shortness of breath present but modestly improved Objective: I&O/Vital Signs 03/26/19 03/26/19 03/26/19 03/26/19 20:00 20:00 20:00 21:00 Temp 36.9 Pulse 122 101 Resp 20 10 B/P (MAP) 146/73 (97) 121/79 (93) Pulse Ox 92 90 O2 Delivery Vapotherm Vapotherm Vapotherm O2 Flow Rate 40.00 40.00 40.00 60.00 60.00 FiO2 65 03/26/19 03/26/19 03/26/19 03/26/19 21:11 21:13 22:00 23:00 Pulse 142 141 114 Resp 28 26 27 B/P (MAP) 129/74 (92) 120/66 (84) Pulse Ox 95 94 91 92 O2 Delivery Vapotherm Vapotherm Vapotherm Vapotherm O2 Flow Rate 35.00 40.00 35.00 35.00 60.00 60.00 60.00 FiO2 60 03/27/19 03/27/19 03/27/19 03/27/19 00:00 00:00 00:00 01:00 Temp 37.0 Pulse 103 133 Resp 31 B/P (MAP) 107/79 (88) 105/69 (81) Pulse Ox 92 93 O2 Delivery Vapotherm Vapotherm Vapotherm O2 Flow Rate 35.00 35.00 35.00 60.00 60.00 FiO2 60 03/27/19 03/27/19 03/27/19 03/27/19 01:00 01:35 02:00 03:00 Pulse 133 93 112 B/P (MAP) 112/68 (83) 102/71 (81) Pulse Ox 94 95 O2 Delivery Vapotherm Vapotherm Vapotherm O2 Flow Rate 35.00 35.00 35.00 60.00 60.00 FiO2 60 03/27/19 03/27/19 03/27/19 03/27/19 04:00 04:00 05:00 06:00 Pulse 98 101 112 B/P (MAP) 102/70 (81) 105/70 (82) 119/85 (96) Pulse Ox 98 96 O2 Delivery Vapotherm Vapotherm Vapotherm Vapotherm O2 Flow Rate 35.00 35.00 35.00 35.00 60.00 60.00 60.00 FiO2 60 03/27/19 06:33 Pulse Ox 91 O2 Delivery Vapotherm O2 Flow Rate 35.00 FiO2 60 03/27/19 00:00 Intake Total 3040 ml Output Total 2450 ml Balance 590 ml Weight (Pounds): 325 Weight (Ounces): 0.0 Weight (Calculated Kilograms): 147.755943 Constitutional: AAO x 3, well-developed, well-nourished Respiratory: No accessory muscle use; other (fair air entry, scattered rhochi and basal coarse crackles) Cardiovascular: irregularly irregular, tachycardia, S1 and S2, systolic murmur (soft NANNETTE at card base) Gastrointestional: No tender; soft; No guarding, No rebound; audible bowel sounds Extremities: No clubbing, No cyanosis, No significant edema Neurologic/Psychiatric: oriented x 3, other (moves all limbs equally) Skin: normal color, warm/dry; No cyanosis, No rash on exposed areas, No ulcerations on exposed areas Results/Procedures: Labs Laboratory Tests 03/27/19 03:15: White Blood Count 9.7, Red Blood Count 4.53, Hemoglobin 13.3, Hematocrit 43, Mean Corpuscular Volume 95, Mean Corpuscular Hemoglobin 29, Mean Corpuscular He moglobin Concent 31L, Red Cell Distribution Width 14.5, Platelet Count 214, Mean Platelet Volume 10.0, Sodium Level 138, Potassium Level 4.0, Chloride Level 100, Carbon Dioxide Level 28, Anion Gap 10, Blood Urea Nitrogen 22H, Creatinine 1.20, Estimat Glomerular Filtration Rate > 60, BUN/Creatinine Ratio 18, Glucose Level 247H, Calcium Level 7.6L, Corrected Calcium 8.0L, Phosphorus Level 2.2L, Magnesium Level 2.0, Total Bilirubin 0.3, Aspartate Amino Transf (AST/SGOT) 35H, Alanine Aminotransferase (ALT/SGPT) 46, Alkaline Phosphatase 75, B-Type Natriuretic Peptide 73.4, Total Protein 6.5, Albumin 3.5 Microbiology 03/25/19 Blood Culture - Preliminary, Resulted No growth Laboratory Tests 03/25/19 11:05 03/26/19 03:20 03/27/19 03:15 A/P: Assessment: Influenza and probable pneumonia, being managed by the Med and the ICU services A Fib with RVR. Has h/o P.a-fib (first documented on 02-21-17) - Holter of 11-12-18 showed a-fib throughout the study with a generally rapid vent response Card cath of 02/23/17: Mild CAD (mild ostial disease of LCX and LAD), no obstruc tive CAD, global hypokinesis, EF approx 35% (eval impaired by a rapid vent rate), mild MR, elevated LVEDP MPI of Dec 2018 showed no evidence of signif myocardial ischemia or infarction. LVEF 42%. 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 Vascular u/s of R lower limb did not show significant proximal vascular issue (flow in R DP was monophasic suggestive of possible distal disease, but pt does not report any signs or symptoms of limb claudication or of distal vascular co mpromise) Plan: * Complex management due to multiple comorbidities that are outlined above * Continue iv diltiazem as needed and as tolerated * Continue oral dilt and beta-blockers * Continue apixaban for stroke prophylaxis * Monitor labs closely EVELIA CARMEN MD FACP FAC CCDS Mar 27, 2019 07:50
[2019-03-27] MEDS ORDERED: RT-ADVAIR HFA 115/21 MCG PER PUFF IH SCH (08:00)
--- NOTE | 2019-03-27 08:01 | Progress Note ---
Subjective Subjective/Events-last exam Reports feeling about the same. Persistent marked hypoxia. Focused Exam Lactate Level 03/24/19 23:35: Lactic Acid Level 0.94 03/25/19 05:40: Lactic Acid Level 1.18 Objective Exam Last Set of Vital Signs Vital Signs Date Time Temp Pulse Resp B/P (MAP) Pulse Ox O2 Delivery O2 Flow Rate FiO2 03/27/19 06:33 91 Vapotherm 35.00 60 03/27/19 06:00 112 119/85 (96) 03/27/19 00:00 31 03/27/19 00:00 37.0 Capillary Refill : Less Than 3 Seconds I&O Intake and Output 03/27/19 00:00 Intake Total 3280 ml Output Total 6250 ml Balance -2970 ml Intake Oral 3280 ml Output Urine Total 6250 ml General: Alert, No Acute Distress Lungs: Other (decreased air movement) Heart: Other (tachycardic) Neuro: Normal Speech Psych/Mental Status: Mental Status NL Results/Procedures Lab Laboratory Tests 03/27/19 03:15: White Blood Count 9.7, Red Blood Count 4.53, Hemoglobin 13.3, Hematocrit 43, Mean Corpuscular Volume 95, Mean Corpuscular Hemoglobin 29, Mean Corpuscular Hemoglobin Concent 31L, Red Cell Distribution Width 14.5, Platelet Count 214, Mean Platelet Volume 10.0, Sodium Level 138, Potassium Level 4.0, Chloride Level 100, Carbon Dioxide Level 28, Anion Gap 10, Blood Urea Nitrogen 22H, Creatinine 1.20, Estimat Glomerular Filtration Rate > 60, BUN/Creatinine Ratio 18, Glucose Level 247H, Calcium Level 7.6L, Corrected Calcium 8.0L, Phosphorus Level 2.2L, Magnesium Level 2.0, Total Bilirubin 0.3, Aspartate Amino Transf (AST/SGOT) 35H, Alanine Aminotransferase (ALT/SGPT) 46, Alkaline Phosphatase 75, B-Type Natriuretic Peptide 73.4, Total Protein 6.5, Albumin 3.5 Microbiology 03/25/19 Blood Culture - Preliminary, Resulted No growth Assessment/Plan Assessment/Plan (1) Flu Status: Acute Assessment & Plan: Oseltamavir (2) Pneumonia Status: Acute Assessment & Plan: Suspect due to influenza with bilateral interstitial infiltrate. On zosyn per Dr. Lora for possible secondary bacterial pneumonia. Qualifiers: (3) Respiratory acidosis Assessment & Plan: Management per Dr. Lora, appreciate recommendations, suspect COPD exacerbation along with influenza. On solumedrol and breathing treatments. May need bipap, discussed with patient. 2/5 patient does not want to use bipap, continued on vapotherm (4) Atrial fibrillation Status: Chronic Assessment & Plan: Resume home rate control meds and apixaban 2/ heart rate rapid in spite of home meds, consult Cardiology 2 started on Cardizem drip, echo done with EF 45-50%, appreciate Cardiology recommendations (5) Hyperthyroidism Status: Chronic Assessment & Plan: TSH low but free T4 normal, continue methimazole. (6) Acute hyperkalemia Status: Resolved Assessment & Plan: Recheck (7) DVT prophylaxis Status: Acute Assessment & Plan: On apixaban Clinical Quality Measures DVT/VTE Risk/Contraindication: Risk Factor Score Per Nursin RFS Level Per Nursing on Admit: 4+=Very High TYREL SAMUEL MD Mar 27, 2019 08:01
--- NOTE | 2019-03-27 08:41 | Diagnostic Imaging Report ---
INDICATION: Respiratory distress. Pneumonia. Comparison with 03/26/2019. Cardiomegaly again noted. The lungs are well-aerated. The lungs are now clear. No pneumothorax or pleural effusion. No bony abnormalities. IMPRESSION: 1. Cardiomegaly. 2. There are no infiltrates or changes of congestive failure at this time. Dictated by: Dictated on workstation # [id number]
[2019-03-27] MEDS ORDERED: SODIUM PHOSPHATE INJ 30 MM in NS (IVPB) 250 ML IV ONE (09:00)
[2019-03-27] MEDS: FLUTICASONE NASAL SPRAY (FLONASE) 16 GM BTL NS SCH (09:29)
[2019-03-27] MEDS: LORATADINE (CLARITIN) 10 MG TAB PO SCH (09:31)
[2019-03-27] MEDS: FAMOTIDINE 20 MG (PEPCID) TABLET PO SCH ×2 (09:31→19:46)
[2019-03-27] MEDS: METHIMAZOLE TABLET 5 MG TABLET PO SCH (09:31)
[2019-03-27] MEDS: risperiDONE 1 MG (RisperDAL) TAB PO SCH ×2 (09:31→19:43)
[2019-03-27] MEDS: meTOprolol SUCCINATE 100 MG (TOPROL XL) TAB PO SCH (09:31)
[2019-03-27] MEDS: ASPIRIN 81 MG CHEW (CHILDREN'S ASA) PO SCH (09:31)
[2019-03-27] MEDS: APIXABAN 5 MG (ELIQUIS) TABLET PO SCH ×2 (09:31→19:43)
[2019-03-27] MEDS: OSELTAMIVIR 75 MG (TAMIFLU) CAPSULE PO SCH ×2 (09:31→19:43)
[2019-03-27] MEDS: ADVAIR HFA 115/21 MCG INHALER 8 GM IH SCH (10:58)
[2019-03-27] MEDS: NS IV 1000 ML 1,000 ML IV SCH (17:21)
[2019-03-27] MEDS: inSUlin ASPART (NovoLOG) 1 UNIT/0.01 ML (CHARGE PER UNIT) SC SCH ×2 (17:21→20:31)
[2019-03-28] VITALS (19 sets, daily range): BP systolic 94–152; BP diastolic 48–99
[2019-03-28] MEDS: RT-ALBUTEROL/IPRATROPIUM 3 ML (DUONEB) VIAL INH SCH ×6 (02:26→23:09)
[2019-03-28] MEDS: ACETAMINOPHEN 500 MG TAB (TYLENOL) PO SCH ×4 (03:19→20:36)
[2019-03-28] MEDS: NS IV 1000 ML 1,000 ML IV SCH (03:19)
[2019-03-28] MEDS: PIPERACILLIN/TAZOBACTAM (BULK) 4.5 GM in NS (IVPB) 100 ML IV SCH ×3 (03:19→18:28)
[2019-03-28] MEDS: dilTIAZem DRIP PRE-MIX 125 ML IV SCH ×3 (03:19→18:29)
[2019-03-28 03:59] LABS: HEMOGLOBIN 13.1 G/DL (13.3-17.7); MEAN PLATELET VOLUME 10.1 FL (7.4-10.4); RED CELL DISTRIBUTION WIDTH 14.9 % (10.0-14.5); WHITE BLOOD COUNT 8.4 10^3/uL (4.3-11.0)
[2019-03-28 04:25] LABS: BUN/CREATININE RATIO 18; CALCIUM 7.9 MG/DL (8.5-10.1); CARBON DIOXIDE 30 MMOL/L (21-32); CHLORIDE 101 MMOL/L (98-107); CREATININE SERUM 1.04 MG/DL (0.60-1.30); GFR ESTIMATED > 60; GLUCOSE 187 MG/DL (70-105); MAGNESIUM 2.2 MG/DL (1.6-2.4); PHOSPHORUS 2.6 MG/DL (2.3-4.7); POTASSIUM 4.3 MMOL/L (3.6-5.0); SODIUM 141 MMOL/L (135-145)
[2019-03-28] MEDS: MAGNESIUM 1 GM/100 ML IVPB 100 ML IV SCH (05:05)
[2019-03-28] MEDS: POTASSIUM CL 10MEQ/50ML IVPB 50 ML IV SCH (05:05)
[2019-03-28] MEDS: KCL 20 MEQ TAB (K-DUR) PO SCH (05:05)
[2019-03-28] MEDS: methylPREDNISolone 40 MG/ML (Solu-MEDROL) VIAL IV SCH ×3 (06:15→17:04)
[2019-03-28] MEDS: inSUlin ASPART (NovoLOG) 1 UNIT/0.01 ML (CHARGE PER UNIT) SC SCH ×4 (06:16→20:35)
--- NOTE | 2019-03-28 06:52 | Progress Note ---
Subjective Subjective/Events-last exam Afebrile, thinks his vapotherm is making his heart rate high. States he feels about the same as yesterday. Objective Exam Last Set of Vital Signs Vital Signs Date Time Temp Pulse Resp B/P (MAP) Pulse Ox O2 Delivery O2 Flow Rate FiO2 03/28/19 06:00 118 18 101/68 (79) 96 Vapotherm 30.00 60.00 03/28/19 04:00 60 03/27/19 20:00 36.8 Capillary Refill : Less Than 3 Seconds I&O Intake and Output 03/28/19 00:00 Intake Total 2190 ml Output Total 1600 ml Balance 590 ml Intake Oral 1930 ml IV Total 260 ml Output Urine Total 1600 ml # Voids 2 General: Alert, No Acute Distress Lungs: Normal Air Movement Heart: Other (tachycardic, irregular) Neuro: Normal Speech Psych/Mental Status: Other (mood irritable) Results/Procedures Lab Laboratory Tests 03/27/19 15:58: Glucometer 276H 03/27/19 20:02: Glucometer 223H 03/28/19 03:10: White Blood Count 8.4, Red Blood Count 4.65, Hemoglobin 13.1L, Hematocrit 44, Mean Corpuscular Volume 95, Mean Corpuscular Hemoglobin 28, Mean Corpuscular Hemoglobin Concent 30L, Red Cell Distribution Width 14.9H, Platelet Count 210, Mean Platelet Volume 10.1, Sodium Level 141, Potassium Level 4.3, Chloride Level 101, Carbon Dioxide Level 30, Anion Gap 10, Blood Urea Nitrogen 19H, Creatinine 1.04, Estimat Glomerular Filtration Rate > 60, BUN/Creatinine Ratio 18, Glucose Level 187H, Calcium Level 7.9L, Phosphorus Level 2.6, Magnesium Level 2.2 Microbiology 03/25/19 Blood Culture - Preliminary, Resulted No growth Assessment/Plan Assessment/Plan (1) Flu Status: Acute Assessment & Plan: Oseltamavir, today will be last day (2) Pneumonia Status: Acute Assessment & Plan: Suspect due to influenza with bilateral interstitial infiltrate. On zosyn per Dr. Lora for possible secondary bacterial pneumonia. Qualifiers: (3) Respiratory acidosis Assessment & Plan: Management per Dr. Lora, appreciate recommendations, suspect COPD exacerbation along with influenza. On solumedrol and breathing treatments. May need bipap, discussed with patient. 03/27 patient does not want to use bipap, continued on vapotherm 03/28 persistent significant hypoxia, continued on 60% FiO2 this am (4) Atrial fibrillation Status: Chronic Assessment & Plan: Resume home rate control meds and apixaban 03/26 heart rate rapid in spite of home meds, consult Cardiology 03/27 started on Cardizem drip, echo done with EF 45-50%, appreciate Cardiology recommendations 03/28 Cardiology adding digoxin due to need for better control but low blood pressure (5) Hyperthyroidism Status: Chronic Assessment & Plan: TSH low but free T4 normal, continue methimazole. (6) Acute hyperkalemia Status: Resolved Assessment & Plan: Recheck (7) DVT prophylaxis Status: Acute Assessment & Plan: On apixaban Clinical Quality Measures DVT/VTE Risk/Contraindication: Risk Factor Score Per Nursin RFS Level Per Nursing on Admit: 4+=Very High TYREL SAMUEL MD Mar 28, 2019 06:52
[2019-03-28] MEDS: ADVAIR HFA 115/21 MCG INHALER 8 GM IH SCH ×2 (07:18→23:10)
--- NOTE | 2019-03-28 07:35 | Pulmonary Progress Note ---
Subjective Date Seen by a Provider: Mar 28, 2019 Time Seen by a Provider: 07:33 Sepsis Event Evaluation Height, Weight, BMI Height: 6'0.00" Weight: 325lbs. 0.0oz. 147.017718yo; 45.76 BMI Method:Stated Exam Exam Vital Signs Date Time Temp Pulse Resp B/P (MAP) Pulse Ox O2 Delivery O2 Flow Rate FiO2 03/28/19 07:19 91 Vapotherm 30.00 60 03/28/19 06:00 118 18 101/68 (79) 96 Vapotherm 30.00 60.00 03/28/19 05:00 101 105/70 (82) 96 Vapotherm 30.00 60.00 03/28/19 04:00 98 102/70 (81) 98 Vapotherm 30.00 60.00 03/28/19 04:00 Vapotherm 30.00 60 03/28/19 03:00 112 102/71 (81) 95 Vapotherm 30.00 60.00 03/28/19 02:32 92 Vapotherm 30.00 60 03/28/19 02:26 92 Vapotherm 30.00 60 03/28/19 02:00 93 112/68 (83) 96 Vapotherm 30.00 60.00 03/28/19 01:00 109 105/69 (81) 93 Vapotherm 30.00 60.00 03/28/19 01:00 112 03/28/19 00:00 122 23 123/88 (100) 95 Vapotherm 30.00 60.00 03/28/19 00:00 Vapotherm 30.00 60 03/27/19 23:00 117 27 115/75 (88) 97 Vapotherm 30.00 60.00 03/27/19 22:16 93 Vapotherm 30.00 60 03/27/19 22:00 110 33 112/64 (80) 94 Vapotherm 30.00 60.00 03/27/19 21:00 113 19 105/69 (81) 95 Vapotherm 30.00 60.00 03/27/19 20:00 Vapotherm 30.00 60 03/27/19 20:00 36.8 03/27/19 20:00 124 28 102/74 (83) 95 Vapotherm 30.00 60.00 2/5/20 19:00 129 03/27/19 19:00 112 22 116/74 (88) 95 Vapotherm 30.00 60.00 03/27/19 18:04 94 Vapotherm 30.00 60 03/27/19 18:00 123 20 125/83 (97) 94 Vapotherm 30.00 60.00 03/27/19 17:00 112 34 114/86 (95) 94 Vapotherm 30.00 60.00 03/27/19 16:44 Vapotherm 30.00 60.00 03/27/19 16:00 115 14 120/78 (92) 95 Vapotherm 35.00 65.00 03/27/19 16:00 36.7 03/27/19 16:00 Vapotherm 35.00 60 03/27/19 15:00 113 19 113/71 (85) 94 Vapotherm 35.00 65.00 03/27/19 14:26 94 Vapotherm 35.00 60 03/27/19 14:00 105 35 109/79 (89) 95 Vapotherm 35.00 65.00 03/27/19 13:00 126 03/27/19 13:00 109 27 94/62 (73) 95 Vapotherm 35.00 65.00 03/27/19 12:00 Vapotherm 35.00 60 03/27/19 12:00 134 11 77/62 (67) 95 Vapotherm 35.00 65.00 03/27/19 11:00 111 23 105/68 (80) 96 Vapotherm 35.00 65.00 03/27/19 10:58 95 Vapotherm 35.00 60 03/27/19 10:00 113 14 99/73 (82) 95 Vapotherm 35.00 65.00 03/27/19 09:00 120 123/95 (104) 93 Vapotherm 35.00 65.00 03/27/19 08:00 117 105/67 (80) 89 Vapotherm 35.00 65.00 03/27/19 08:00 Vapotherm 35.00 60 03/27/19 07:42 36.5 I & O 03/28/19 07:00 Intake Total 2305 ml Output Total 1525 ml Balance 780 ml Height & Weight Height: 6'0.00" Weight: 325lbs. 0.0oz. 147.281002bo; 45.76 BMI Method:Stated General Appearance: Moderate Distress, Obese HEENT: Pharynx Normal Respiratory: No Accessory Muscle Use, No Respiratory Distress, Decreased Breath Sounds, Wheezing, Other (a few fine basilar rales without wheezing or rhonchi elsewhere the chest is clear) Cardiovascular: No Edema, No Gallop, No JVD, No Murmur, Irregularly Irregular Capillary Refill: Less Than 3 Seconds Gastrointestinal: non tender, soft Extremity: Normal Capillary Refill, Normal Inspection, Normal Range of Motion, Non Tender, No Calf Tenderness, No Pedal Edema Neurologic/Psychiatric: Alert, Oriented x3 Skin: Normal Color, Warm/Dry, Damp (with a flushed appearance) Results Lab Laboratory Tests 03/27/19 03:15 03/28/19 03:10 Assessment/Plan Assessment/Plan Acute respiratory failure with pneumonia and influenza -zosyn -Oxygen -Solumedrol Agitation/anxiety - risperadol Influenza A -Tamiflu Afib rvr `-Cardizem gtt -Eliquis -Cardiology following Hx of hyperthyroid -Methimazole HELEN DO DO Mar 28, 2019 07:35
--- NOTE | 2019-03-28 09:20 | Diagnostic Imaging Report ---
INDICATION: Flu, pneumonia, dyspnea. TECHNIQUE: Single view chest 3:26 AM. CORRELATION STUDY: 03/27/2019 FINDINGS: Stable severity cardiac enlargement. Mediastinum prominent. Vasculature is prominent as well. Overall assessment of the lung frye is somewhat limited on this study. Superimposed areas of atelectasis, infiltrate and/or edema about the lung base is not excluded. IMPRESSION: 1. Cardiac enlargement with component of pulmonary vascular congestion, adversely changed from prior study. Superimposed areas of atelectasis, infiltrate and/or edema about the perihilar and basilar regions not excluded. Follow-up imaging would be recommended. Dictated by: Dictated on workstation # [id number]
[2019-03-28] MEDS: LORATADINE (CLARITIN) 10 MG TAB PO SCH (09:23)
[2019-03-28] MEDS: FLUTICASONE NASAL SPRAY (FLONASE) 16 GM BTL NS SCH (09:23)
[2019-03-28] MEDS: risperiDONE 1 MG (RisperDAL) TAB PO SCH ×2 (09:23→20:35)
[2019-03-28] MEDS: meTOprolol SUCCINATE 100 MG (TOPROL XL) TAB PO SCH (09:23)
[2019-03-28] MEDS: OSELTAMIVIR 75 MG (TAMIFLU) CAPSULE PO SCH ×2 (09:23→20:35)
[2019-03-28] MEDS: ASPIRIN 81 MG CHEW (CHILDREN'S ASA) PO SCH (09:23)
[2019-03-28] MEDS: FAMOTIDINE 20 MG (PEPCID) TABLET PO SCH ×2 (09:23→20:35)
[2019-03-28] MEDS: METHIMAZOLE TABLET 5 MG TABLET PO SCH (09:23)
[2019-03-28] MEDS: APIXABAN 5 MG (ELIQUIS) TABLET PO SCH ×2 (09:23→20:35)
--- NOTE | 2019-03-28 09:25 | Progress Note - Cardiology ---
Cardiology SOAP Progress Note Subjective: Sitting up in recliner at the bedside. C/O gen weakness. Feels SOB has improved. No c/o palpitations or CP. Objective: I&O/Vital Signs 04/01/19 04/01/19 04/01/19 04/01/19 00:00 01:00 04:00 06:42 Temp 36.5 36.0 Pulse 90 109 104 107 Resp 18 20 B/P (MAP) 129/78 (95) 131/82 (98) Pulse Ox 94 94 O2 Delivery High Flow N/C High Flow N/C O2 Flow Rate 4.00 4.00 4.00 04/01/19 08:00 Temp 35.8 Pulse 100 Resp 16 B/P (MAP) 131/79 (96) Pulse Ox 100 O2 Delivery High Flow N/C O2 Flow Rate 4.00 04/01/19 00:00 Intake Total 1200 ml Balance 1200 ml Weight (Pounds): 325 Weight (Ounces): 0.0 Weight (Calculated Kilograms): 147.755884 Constitutional: AAO x 3, well-developed, well-nourished Respiratory: No accessory muscle use; other (fair air entry, scattered rhochi and basal coarse crackles) Cardiovascular: irregularly irregular, tachycardia, S1 and S2, systolic murmur (soft NANNETTE at card base) Gastrointestional: No tender; soft; No guarding, No rebound; audible bowel sounds Extremities: No clubbing, No cyanosis; significant edema (mild bilat LE swelling) Neurologic/Psychiatric: oriented x 3, other (moves all limbs equally) Skin: normal color, warm/dry; No cyanosis, No rash on exposed areas, No ulcerations on exposed areas Results/Procedures: Labs Laboratory Tests 03/31/19 10:33: Glucometer 183H 03/31/19 16:18: Glucometer 160H 03/31/19 20:24: Glucometer 182H 04/01/19 05:09: White Blood Count 8.4, Red Blood Count 5.40, Hemoglobin 15.6, Hematocrit 50, Mean Corpuscular Volume 92, Mean Corpuscular Hemoglobin 29, Mean Corpuscular Hemoglobin Concent 32, Red Cell Distribution Width 13.8, Platelet Count 233, Mean Platelet Volume 9.5, Neutrophils (%) (Auto) 70, Lymphocytes (%) (Auto) 20, Monocytes (%) (Auto) 9, Eosinophils (%) (Auto) 1, Basophils (%) (Auto) 0, Neutrophils # (Auto) 5.9, Lymphocytes # (Auto) 1.7, Monocytes # (Auto) 0.8, Eosinophils # (Auto) 0.1, Basophils # (Auto) 0.0, Sodium Level 142, Potassium Level 3.9, Chloride Level 98, Carbon Dioxide Level 35H, Anion Gap 9, Blood Urea Nitrogen 21H, Creatinine 0.97, Estimat Glomerular Filtration Rate > 60, BUN /Creatinine Ratio 22, Glucose Level 103, Calcium Level 8.0L, Phosphorus Level 3.4, Magnesium Level 2.2 Microbiology 03/25/19 Blood Culture - Final, Complete No growth A/P: Assessment: Influenza and probable pneumonia, being managed by the Med and the ICU services A Fib with RVR. Has h/o P.a-fib (first documented on 02-21-17) - Holter of 11-12-18 showed a-fib throughout the study with a generally rapid vent response Card cath of 02/23/17: Mild CAD (mild ostial disease of LCX and LAD), no obstructive CAD, global hypokinesis, EF approx 35% (eval impaired by a rapid vent rate), mild MR, elevated LVEDP MPI of Dec 2018 showed no evidence of signif myocardial ischemia or infarction. LVEF 42%. 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 Vascular u/s of R lower limb did not show significant proximal vascular issue (flow in R DP was monophasic suggestive of possible distal disease, but pt does not report any signs or symptoms of limb claudication or of distal vascular compromise) Plan: * Complex management due to multiple comorbidities that are outlined above * HR not well controlled; somewhat low BP prevents us from increasing BB at this time; give Digoxin for rate control * Continue iv diltiazem as needed and as tolerated * Continue oral dilt and beta-blockers * Continue apixaban for stroke prophylaxis * Management of hyperthyroidism per medical services * Monitor labs closely DI MOFFETT Mar 28, 2019 09:25
[2019-03-28] MEDS ORDERED: DIGOXIN 0.25 MG/ML (LANOXIN) 2 ML AMP IV NR (09:30)
--- NOTE | 2019-03-28 11:56 | Progress Note - Cardiology ---
Cardiology SOAP Progress Note Subjective: He notes gen malaise Denies shortness of breath Denies cp or palp or syncope Objective: I&O/Vital Signs 03/28/19 03/28/19 03/28/19 03/28/19 00:00 00:00 01:00 01:00 Pulse 122 112 109 Resp 23 B/P (MAP) 123/88 (100) 105/69 (81) Pulse Ox 95 93 O2 Delivery Vapotherm Vapotherm Vapotherm O2 Flow Rate 30.00 30.00 30.00 60.00 60.00 FiO2 60 03/28/19 03/28/19 03/28/19 03/28/19 02:00 02:26 02:32 03:00 Pulse 93 112 B/P (MAP) 112/68 (83) 102/71 (81) Pulse Ox 96 92 92 95 O2 Delivery Vapotherm Vapotherm Vapotherm Vapotherm O2 Flow Rate 30.00 30.00 30.00 30.00 60.00 60.00 FiO2 60 60 03/28/19 03/28/19 03/28/19 03/28/19 04:00 04:00 05:00 06:00 Pulse 98 101 118 Resp 18 B/P (MAP) 102/70 (81) 105/70 (82) 101/68 (79) Pulse Ox 98 96 96 O2 Delivery Vapotherm Vapotherm Vapotherm Vapotherm O2 Flow Rate 30.00 30.00 30.00 30.00 60.00 60.00 60.00 FiO2 60 03/28/19 03/28/19 03/28/19 03/28/19 07:00 07:00 07:19 08:00 Pulse 146 154 144 Resp 31 27 B/P (MAP) 123/90 (101) 105/56 (72) Pulse Ox 92 91 93 O2 Delivery Vapotherm Vapotherm Vapotherm O2 Flow Rate 30.00 30.00 30.00 60.00 60.00 FiO2 60 03/28/19 03/28/19 03/28/19 03/28/19 08:00 09:00 10:00 10:20 Pulse 151 147 Resp 32 20 B/P (MAP) 94/48 (63) 139/94 (109) Pulse Ox 97 94 94 O2 Delivery Vapotherm Vapotherm Vapotherm Vapotherm O2 Flow Rate 30.00 30.00 30.00 20.00 60.00 60.00 FiO2 60 45 03/28/19 03/28/19 11:00 11:42 Pulse 112 Resp 21 B/P (MAP) 112/75 (87) Pulse Ox 94 94 O2 Delivery Vapotherm Vapotherm O2 Flow Rate 30.00 20.00 60.00 FiO2 45 03/28/19 00:00 Intake Total 1400 ml Output Total 925 ml Balance 475 ml Weight (Pounds): 325 Weight (Ounces): 0.0 Weight (Calculated Kilograms): 147.418605 Constitutional: AAO x 3, well-developed, well-nourished Respiratory: No accessory muscle use; other (fair air entry, scattered rhochi and basal coarse crackles) Cardiovascular: irregularly irregular, tachycardia, S1 and S2, systolic murmur (soft NANNETTE at card base) Gastrointestional: No tender; soft; No guarding, No rebound; audible bowel sounds Extremities: No clubbing, No cyanosis; significant edema (mild bilat LE swelling) Neurologic/Psychiatric: oriented x 3, other (moves all limbs equally) Skin: normal color, warm/dry; No cyanosis, No rash on exposed areas, No ulcerations on exposed areas Results/Procedures: Labs Laboratory Tests 03/27/19 15:58: Glucometer 276H 03/27/19 20:02: Glucometer 223H 03/28/19 03:10: White Blood Count 8.4, Red Blood Count 4.65, Hemoglobin 13.1L, Hematocrit 44, Mean Corpuscular Volume 95, Mean Corpuscular Hemoglobin 28, Mean Corpuscular Hemoglobin Concent 30L, Red Cell Distribution Width 14.9H, Platelet Count 210, Mean Platelet Volume 10.1, Sodium Level 141, Potassium Level 4.3, Chloride Level 101, Carbon Dioxide Level 30, Anion Gap 10, Blood Urea Nitrogen 19H, Creatinine 1.04, Estimat Glomerular Filtration Rate > 60, BUN/Creatinine Ratio 18, Glucose Level 187H, Calcium Level 7.9L, Phosphorus Level 2.6, Magnesium Level 2.2 03/28/19 11:21: Glucometer 223H Microbiology 03/25/19 Blood Culture - Preliminary, Resulted No growth Laboratory Tests 03/27/19 03:15 03/28/19 03:10 A/P: Assessment: Influenza and probable pneumonia, being managed by the Med and the ICU services A Fib with RVR. Has h/o P.a-fib (first documented on 02-21-17) - Holter of 11-12-18 showed a-fib throughout the study with a generally rapid vent response Card cath of 02/23/17: Mild CAD (mild ostial disease of LCX and LAD), no obstructive CAD, global hypokinesis, EF approx 35% (eval impaired by a rapid vent rate), mild MR, elevated LVEDP MPI of Dec 2018 showed no evidence of signif myocardial ischemia or infarction. LVEF 42%. 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 Vascular u/s of R lower limb did not show significant proximal vascular issue (flow in R DP was monophasic suggestive of possible distal disease, but pt does not report any signs or symptoms of limb claudication or of distal vascular compromise) Plan: * Complex management due to multiple comorbidities that are outlined above * HR remains elevated and very difficult to control; somewhat low BP prevents us from increasing BB at this time; add Digoxin for rate control * Continue iv diltiazem as needed and as tolerated * Continue oral dilt and beta-blockers * Continue apixaban for stroke prophylaxis * Management of hyperthyroidism per Medical services * Monitor labs closely EVELIA CARMEN MD FACP FAC CCDS Mar 28, 2019 11:56
[2019-03-29] VITALS (16 sets, daily range): BP systolic 109–151; BP diastolic 81–101
[2019-03-29] MEDS: methylPREDNISolone 40 MG/ML (Solu-MEDROL) VIAL IV SCH ×3 (00:32→20:59)
[2019-03-29] MEDS: RT-ALBUTEROL/IPRATROPIUM 3 ML (DUONEB) VIAL INH SCH ×5 (02:44→22:20)
[2019-03-29] MEDS: dilTIAZem DRIP PRE-MIX 125 ML IV SCH (03:59)
[2019-03-29] MEDS: PIPERACILLIN/TAZOBACTAM (BULK) 4.5 GM in NS (IVPB) 100 ML IV SCH ×3 (03:59→20:59)
[2019-03-29] MEDS: ACETAMINOPHEN 500 MG TAB (TYLENOL) PO SCH ×4 (03:59→20:59)
[2019-03-29] MEDS: POTASSIUM CL 10MEQ/50ML IVPB 50 ML IV SCH (04:05)
[2019-03-29] MEDS: MAGNESIUM 1 GM/100 ML IVPB 100 ML IV SCH (04:05)
[2019-03-29] MEDS: KCL 20 MEQ TAB (K-DUR) PO SCH (04:05)
[2019-03-29 04:10] LABS: HEMOGLOBIN 13.8 G/DL (13.3-17.7); MEAN PLATELET VOLUME 10.3 FL (7.4-10.4); RED CELL DISTRIBUTION WIDTH 14.6 % (10.0-14.5); WHITE BLOOD COUNT 7.5 10^3/uL (4.3-11.0)
[2019-03-29 04:34] LABS: BUN/CREATININE RATIO 21; CARBON DIOXIDE 31 MMOL/L (21-32); CHLORIDE 100 MMOL/L (98-107); CREATININE SERUM 0.86 MG/DL (0.60-1.30); GFR ESTIMATED > 60; GLUCOSE 197 MG/DL (70-105); MAGNESIUM 2.3 MG/DL (1.6-2.4); POTASSIUM 4.3 MMOL/L (3.6-5.0); SODIUM 141 MMOL/L (135-145)
--- NOTE | 2019-03-29 05:29 | Pulmonary Progress Note ---
Subjective Date Seen by a Provider: Mar 29, 2019 Time Seen by a Provider: 05:24 Subjective/Events-last exam Pt had worsening confusion last night. Sepsis Event Evaluation Height, Weight, BMI Height: 6'0.00" Weight: 325lbs. 0.0oz. 147.034819fa; 45.76 BMI Method:Stated Exam Exam Vital Signs Date Time Temp Pulse Resp B/P (MAP) Pulse Ox O2 Delivery O2 Flow Rate FiO2 03/29/19 04:00 112 25 138/94 (109) 91 Vapotherm 20.00 45.00 03/29/19 04:00 36.8 03/29/19 03:00 110 24 134/94 (107) 94 Vapotherm 20.00 45.00 03/29/19 02:45 92 Vapotherm 20.00 45 03/29/19 02:11 Vapotherm 20.00 45.00 03/29/19 02:00 109 22 127/88 (101) 90 Vapotherm 30.00 45.00 03/29/19 01:00 120 03/29/19 01:00 122 151/88 (109) 91 Vapotherm 30.00 45.00 03/29/19 00:10 36.7 112 21 121/99 (106) 91 Vapotherm 30.00 45.00 03/28/19 23:13 Vapotherm 30.00 35.00 03/28/19 23:10 93 Vapotherm 20.00 40 03/28/19 23:00 109 20 152/99 (116) 93 Vapotherm 30.00 40.00 03/28/19 22:00 112 20 123/89 (100) 92 Vapotherm 30.00 40.00 03/28/19 21:00 115 27 133/89 (104) 93 Vapotherm 30.00 40.00 03/28/19 20:00 36.9 128 20 135/84 (101) 92 Vapotherm 30.00 40.00 03/28/19 20:00 92 Vapotherm 20.00 40 03/28/19 19:00 118 21 124/69 (87) 93 Vapotherm 30.00 60.00 03/28/19 19:00 121 03/28/19 18:25 92 Vapotherm 20.00 40 03/28/19 16:00 94 Vapotherm 20.00 45 03/28/19 15:05 36.9 03/28/19 14:00 111 36 96 Vapotherm 30.00 60.00 03/28/19 14:00 94 Vapotherm 20.00 45 03/28/19 13:00 140 03/28/19 13:00 125 20 128/81 (97) 95 Vapotherm 30.00 60.00 03/28/19 12:29 36.6 03/28/19 12:00 110 24 116/92 (100) 91 Vapotherm 30.00 60.00 03/28/19 11:42 94 Vapotherm 20.00 45 03/28/19 11:00 112 21 112/75 (87) 94 Vapotherm 30.00 60.00 03/28/19 10:20 94 Vapotherm 20.00 45 03/28/19 10:00 147 20 139/94 (109) 94 Vapotherm 30.00 60.00 03/28/19 09:00 151 32 94/48 (63) 97 Vapotherm 30.00 60.00 03/28/19 08:00 Vapotherm 30.00 60 03/28/19 08:00 144 27 105/56 (72) 93 Vapotherm 30.00 60.00 03/28/19 07:19 91 Vapotherm 30.00 60 03/28/19 07:00 154 31 123/90 (101) 92 Vapotherm 30.00 60.00 03/28/19 07:00 146 03/28/19 06:00 118 18 101/68 (79) 96 Vapotherm 30.00 60.00 I & O 03/29/19 07:00 Intake Total 1780 ml Output Total 2550 ml Balance -770 ml Height & Weight Height: 6'0.00" Weight: 325lbs. 0.0oz. 147.373532fc; 45.76 BMI Method:Stated General Appearance: Moderate Distress, Obese HEENT: Pharynx Normal Respiratory: No Accessory Muscle Use, No Respiratory Distress, Decreased Breath Sounds, Wheezing, Other (a few fine basilar rales without wheezing or rhonchi elsewhere the chest is clear) Cardiovascular: No Edema, No Gallop, No JVD, No Murmur, Irregularly Irregular Capillary Refill: Less Than 3 Seconds Gastrointestinal: non tender, soft Extremity: Normal Capillary Refill, Normal Inspection, Normal Range of Motion, Non Tender, No Calf Tenderness, No Pedal Edema Neurologic/Psychiatric: Alert, Oriented x3 Skin: Normal Color, Warm/Dry, Damp (with a flushed appearance) Results Lab Laboratory Tests 03/28/19 03:10 03/29/19 03:57 Assessment/Plan Assessment/Plan Acute respiratory failure with pneumonia and influenza -zosyn -Oxygen -Solumedrol Agitation/anxiety - risperadol Influenza A -Tamiflu Afib rvr `-Cardizem gtt -Eliquis -Cardiology following Hx of hyperthyroid -Methimazole HELEN DO DO Mar 29, 2019 05:29
[2019-03-29] MEDS ORDERED: HALOPERIDOL 5 MG/ML (HALDOL) AMP IV PRN (05:30)
[2019-03-29] MEDS ORDERED: methylPREDNISolone 40 MG/ML (Solu-MEDROL) VIAL IV SCH (05:30)
[2019-03-29] MEDS ORDERED: morphine INJ 4 MG/ML 1 ML (VIAL/SYRINGE) IVP PRN (05:30)
[2019-03-29] MEDS: inSUlin ASPART (NovoLOG) 1 UNIT/0.01 ML (CHARGE PER UNIT) SC SCH ×4 (05:41→21:00)
--- NOTE | 2019-03-29 06:29 | Progress Note ---
Subjective Subjective/Events-last exam Afebrile, had confusion overnight, is better this morning. Objective Exam Last Set of Vital Signs Vital Signs Date Time Temp Pulse Resp B/P (MAP) Pulse Ox O2 Delivery O2 Flow Rate FiO2 03/29/19 06:00 134 24 142/88 (106) 92 Vapotherm 20.00 45.00 03/29/19 04:00 36.8 03/29/19 02:45 45 Capillary Refill : Less Than 3 Seconds I&O Intake and Output 03/29/19 00:00 Intake Total 1905 ml Output Total 1475 ml Balance 430 ml Intake Oral 1540 ml IV Total 365 ml Output Urine Total 1475 ml # Voids 2 General: Alert, No Acute Distress Lungs: Other (ronchi) Heart: Other (tachycardia, irregular) Extremities: Other (trace edema) Neuro: Normal Speech Psych/Mental Status: Mood NL Results/Procedures Lab Laboratory Tests 03/28/19 11:21: Glucometer 223H 03/28/19 15:05: Glucometer 260H 03/28/19 20:05: Glucometer 199H 03/29/19 03:57: White Blood Count 7.5, Red Blood Count 4.78, Hemoglobin 13.8, Hematocrit 45, Mean Corpuscular Volume 95, Mean Corpuscular Hemoglobin 29, Mean Corpuscular Hemoglobin Concent 31L, Red Cell Distribution Width 14.6H, Platelet Count 198, Mean Platelet Volume 10.3, Sodium Level 141, Potassium Level 4.3, Chloride Level 100, Carbon Dioxide Level 31, Anion Gap 10, Blood Urea Nitrogen 18, Creatinine 0.86, Estimat Glomerular Filtration Rate > 60, BUN/Creatinine Ratio 21, Glucose Level 197H, Calcium Level 8.0L, Phosphorus Level 2.0L, Magnesium Level 2.3, B- Type Natriuretic Peptide 146.5H, Digoxin Level < 0.30L Microbiology 03/25/19 Blood Culture - Preliminary, Resulted No growth Assessment/Plan Assessment/Plan (1) Flu Status: Acute Assessment & Plan: Oseltamavir course completed. (2) Pneumonia Status: Acute Assessment & Plan: Suspect due to influenza with bilateral interstitial infiltrate. On zosyn per Dr. Lora for possible secondary bacterial pneumonia. Qualifiers: (3) Respiratory acidosis Assessment & Plan: Management per Dr. Lora, appreciate recommendations, suspect COPD exacerbation along with influenza. On solumedrol and breathing treatments. May need bipap, discussed with patient. 03/27 patient does not want to use bipap, continued on vapotherm 03/28 persistent significant hypoxia, continued on 60% FiO2 this am 03/29 vapotherm FiO2 decreased to 45% this morning (4) Atrial fibrillation Status: Chronic Assessment & Plan: Resume home rate control meds and apixaban 03/26 heart rate rapid in spite of home meds, consult Cardiology 03/27 started on Cardizem drip, echo done with EF 45-50%, appreciate Cardiology recommendations 03/28 Cardiology adding digoxin due to need for better control but low blood pressure 03/29 persistent tachycardia, on cardizem drip, appreciate recommendations (5) Hyperthyroidism Status: Chronic Assessment & Plan: TSH low but free T4 normal, continue methimazole. (6) Acute hyperkalemia Status: Resolved Assessment & Plan: Recheck (7) DVT prophylaxis Status: Acute Assessment & Plan: On apixaban Clinical Quality Measures DVT/VTE Risk/Contraindication: Risk Factor Score Per Nursin RFS Level Per Nursing on Admit: 4+=Very High TYREL SAMUEL MD Mar 29, 2019 06:29
--- NOTE | 2019-03-29 08:03 | Diagnostic Imaging Report ---
EXAM: CHEST 1 VIEW, AP/PA ONLY INDICATION: Dyspnea. COMPARISON: 03/28/2019. FINDINGS: Cardiomegaly with pulmonary vascular congestion is similar to the prior. No pleural effusion or pneumothorax. No new focal pulmonary opacity. IMPRESSION: Stable cardiomegaly and prominent pulmonary vascular congestion. Dictated by: Dictated on workstation # [id number]
[2019-03-29] MEDS: DIGOXIN 0.25 MG (LANOXIN) TAB PO SCH (08:32)
[2019-03-29] MEDS: METHIMAZOLE TABLET 5 MG TABLET PO SCH (08:32)
[2019-03-29] MEDS: ASPIRIN 81 MG CHEW (CHILDREN'S ASA) PO SCH (08:32)
[2019-03-29] MEDS: FAMOTIDINE 20 MG (PEPCID) TABLET PO SCH ×2 (08:32→20:59)
[2019-03-29] MEDS: APIXABAN 5 MG (ELIQUIS) TABLET PO SCH ×2 (08:32→20:59)
[2019-03-29] MEDS: LORATADINE (CLARITIN) 10 MG TAB PO SCH (08:32)
[2019-03-29] MEDS: meTOprolol SUCCINATE 100 MG (TOPROL XL) TAB PO SCH (08:32)
[2019-03-29] MEDS: FLUTICASONE NASAL SPRAY (FLONASE) 16 GM BTL NS SCH (08:34)
--- NOTE | 2019-03-29 09:00 | NUR ---
THIS NURSE NOTIFIED DR CARMEN PT HEART RATE RUNS 120-180S AND EVEN HIGHER WITH AMBULATION. PT DENIES CHEST PAIN AND PT BP IS STABLE. DR CARMEN SAID TO NOTIFIED HIM OF ANY SYMPTOMATIC TACHYCARDIA. NO NEW ORDERS AT THIS TIME.
--- NOTE | 2019-03-29 09:45 | Progress Note - Cardiology ---
Cardiology SOAP Progress Note Subjective: States was confused last night. Regrets pulling lines and attempting to leave Notes gen malaise and weakness Mod exertional shortness of breath No palp or syncope No cp No N/V/D Objective: I&O/Vital Signs 03/28/19 03/28/19 03/28/19 03/28/19 22:00 23:00 23:10 23:13 Pulse 112 109 Resp 20 20 B/P (MAP) 123/89 (100) 152/99 (116) Pulse Ox 92 93 93 O2 Delivery Vapotherm Vapotherm Vapotherm Vapotherm O2 Flow Rate 30.00 30.00 20.00 30.00 40.00 40.00 35.00 FiO2 40 03/29/19 03/29/19 03/29/19 03/29/19 00:10 01:00 01:00 02:00 Temp 36.7 Pulse 112 122 120 109 Resp 21 22 B/P (MAP) 121/99 (106) 151/88 (109) 127/88 (101) Pulse Ox 91 91 90 O2 Delivery Vapotherm Vapotherm Vapotherm O2 Flow Rate 30.00 30.00 30.00 45.00 45.00 45.00 03/29/19 03/29/19 03/29/19 03/29/19 02:11 02:45 03:00 04:00 Temp 36.8 Pulse 110 Resp 24 B/P (MAP) 134/94 (107) Pulse Ox 92 94 O2 Delivery Vapotherm Vapotherm Vapotherm O2 Flow Rate 20.00 20.00 20.00 45.00 45.00 FiO2 45 03/29/19 03/29/19 03/29/19 03/29/19 04:00 05:00 06:00 06:27 Pulse 112 112 134 Resp 25 28 24 B/P (MAP) 138/94 (109) 143/100 (114) 142/88 (106) Pulse Ox 91 91 92 90 O2 Delivery Vapotherm Vapotherm Vapotherm Vapotherm O2 Flow Rate 20.00 20.00 20.00 20.00 45.00 45.00 45.00 FiO2 45 03/29/19 00:00 Intake Total 1070 ml Output Total 1275 ml Balance -205 ml Weight (Pounds): 325 Weight (Ounces): 0.0 Weight (Calculated Kilograms): 147.125071 Constitutional: AAO x 3, well-developed, well-nourished Respiratory: No accessory muscle use; other (fair air entry, scattered rhochi and basal coarse crackles) Cardiovascular: irregularly irregular, tachycardia, S1 and S2, systolic murmur (soft NANNETTE at card base) Gastrointestional: No tender; soft; No guarding, No rebound; audible bowel sounds Extremities: No clubbing, No cyanosis; significant edema (mild bilat LE swelling) Neurologic/Psychiatric: oriented x 3, other (moves all limbs equally) Skin: normal color, warm/dry; No cyanosis, No rash on exposed areas, No ulcerations on exposed areas Results/Procedures: Labs Laboratory Tests 03/28/19 11:21: Glucometer 223H 03/28/19 15:05: Glucometer 260H 03/28/19 20:05: Glucometer 199H 03/29/19 03:57: White Blood Count 7.5, Red Blood Count 4.78, Hemoglobin 13.8, Hematocrit 45, Mean Corpuscular Volume 95, Mean Corpuscular Hemoglobin 29, Mean Corpuscular Hemoglobin Concent 31L, Red Cell Distribution Width 14.6H, Platelet Count 198, Mean Platelet Volume 10.3, Sodium Level 141, Potassium Level 4.3, Chloride Level 100, Carbon Dioxide Level 31, Anion Gap 10, Blood Urea Nitrogen 18, Creatinine 0.86, Estimat Glomerular Filtration Rate > 60, BUN/Creatinine Ratio 21, Glucose Level 197H, Calcium Level 8.0L, Phosphorus Level 2.0L, Magnesium Level 2.3, B- Type Natriuretic Peptide 146.5H, Digoxin Level < 0.30L Microbiology 03/25/19 Blood Culture - Preliminary, Resulted No growth Laboratory Tests 03/28/19 03:10 03/29/19 03:57 A/P: Assessment: Influenza and probable pneumonia, being managed by the Med and the ICU services A Fib with RVR. Has h/o P.a-fib (first documented on 02-21-17) - Holter of 11-12-18 showed a-fib throughout the study with a generally rapid vent response Card cath of 02/23/17: Mild CAD (mild ostial disease of LCX and LAD), no ob structive CAD, global hypokinesis, EF approx 35% (eval impaired by a rapid vent rate), mild MR, elevated LVEDP MPI of Dec 2018 showed no evidence of signif myocardial ischemia or infarction. LVEF 42%. Atrial fib seen throughout the study with a somewhat rapid response Eliquis for stroke prophylaxis Echo of 03/26/19 shows LVEF 45-50% (EF likely impaired due to A Fib with RVR during this study), RVSP 22 mmHg H/o chronic systolic and diastolic CHF due to non-ischemic cardiomyopathy - clinically compensated Sleep apnea syndrome - he is intermittently non-compliant with treatment Chronic right shoulder pain d/t torn rotator cuff H/o bladder cancer with surgical treatment in 2009 H/o tobaccoism - quit in 2009 Elevated BMI of approx 47 Hyperthyroidism, treated by methimazole by his transfer agent Dr Baron (and followed by her) H/o intermittent non-specific right groin discomfort of undetermined etiology. Vascular u/s of R lower limb did not show significant proximal vascular issue (flow in R DP was monophasic suggestive of possible distal disease, but pt does not report any signs or symptoms of limb claudication or of distal vascular compromise) Plan: * Complex management due to multiple comorbidities that are outlined above * HR remains elevated and very difficult to control; continue current regimen of dilt and bb to which dig was added o 03/28/19 * Continue apixaban for stroke prophylaxis * Management of hyperthyroidism per Medical services * Monitor labs closely EVELIA CARMEN MD FACP FACC CCDS Mar 29, 2019 09:44
[2019-03-29] MEDS ORDERED: dilTIAZem120 MG (CARDIZEM CD) CAP PO NR (10:00)
[2019-03-29] MEDS ORDERED: meTOprolol SUCCINATE 100 MG (TOPROL XL) TAB PO NR (10:00)
[2019-03-29] MEDS: ADVAIR HFA 115/21 MCG INHALER 8 GM IH SCH ×2 (10:19→22:20)
--- NOTE | 2019-03-29 10:42 | Diagnostic Imaging Report ---
INDICATION: PICC line placement. TIME OF EXAMINATION: 10:01 AM. COMPARISON: 03/29/2019. FINDINGS: A right upper extremity PICC line has been placed with the tip in good position overlying the SVC. There is no pneumothorax identified. The heart is enlarged. There is mild central venous congestion but no evidence of overt failure. No effusion or pneumothorax is detected. IMPRESSION: 1. Satisfactory PICC line placement. 2. Cardiomegaly and mild central congestion. Dictated by: Dictated on workstation # [id number]
[2019-03-29] MEDS: DILTIAZEM IV SCH ×4 (11:02→20:59)
--- NOTE | 2019-03-29 14:20 | NUR ---
"RD ASSESSMENT PMHx: CA(bladder); CAD; hypothyroidism PT INTERACTION: Pt was awake and pleasant during nutrition assessment. Pt states current appetite is good and has been for some time. Note avg PO intake of 85% of meals, per chart review. Pt states following a regular diet at home, but has some difficulty chewing d/t poor teeth. Pt states no recent issues with n/v/c/d at this time, and that his last BM was 2/6. Note pt not currently on bowel regimen per chart review. Pt states no recent wt changes, but states he may have lost weight. Note unable to determine recent wt hx, per chart review. ABNORMAL NUTRITION-RELATED LAB VALUES LOW: Ca 8.0; phos 2.0 HIGH: glu 197 Est. kcal needs: 8259-1603 kcal | 15-18 kcal/kg Est. Pro needs: 124-155 g Pro | 0.8-1.0 g Pro/kg PES STATEMENT: Given PO intake, no nutrition diagnosis at this time (NO-1.1) INTERVENTION: Continue with current diet order of Regular diet. Will continue to follow and reassess as pt needs and status change. MONITOR/EVALUATE: PO Intake; Plan of Care; Hydration Status; Weight Status; Lab Values Helga Rincon, MS, RD, LD"
[2019-03-29] MEDS: NS IV 1000 ML 1,000 ML IV SCH (17:22)
--- NOTE | 2019-03-29 23:15 | NUR ---
2200: PT'S BEHAVIOR CHANGING AT THIS TIME IN COMPARISON TO BEGINNING OF SHIFT. PT REMAINS ALERT AND ORIENTED BUT IS NOW VERY SUSPICIOUS AND BECOMING INCREASINGLY AGITATED. PT IS VERY UNCOMFORTABLE IN THE BED SO THIS RN ASSISTED PT TO CHAIR. PT HAS INCREASED WORK OF BREATHING (RESPIRATORY RATE 28, O2 SAT 90% ON VAPO-THERM AT 25 L AND 40% FIO2). THIS RN CAN NOT AUSCULTATE LUNG SOUNDS AT THIS TIME PATIENT WILL NOT STOP TALKING EVEN WHEN ASKED TO BE QUIET. PT ASKING THIS RN WHO I AM "WHISPERING TO IN THE CORNER." THIS RN TOLD PT THAT IT WAS JUST HIM AND I IN THE ROOM. THIS RN ASKED THE PATIENT IF A BREATHING TREATMENT WOULD IMPROVE IS BREATHING AND PATIENT REPORTS THAT "THEY DON'T HELP, AND ARE MAKING HIS TEETH FALL OUT." PT ALSO REPORTS THAT HE, "DOESN'T EVEN WANT THEM (RESPIRATORY THERAPY) IN HERE." 2229: RT BRYAN AT BEDSIDE WITH THIS RN TO ASSESS PATIENT AND ANSWER QUESTIONS REGARDING BREATHING TREATMENTS. PT REPORTS HE DOESN'T WANT ANY. THERAPEUTIC COMMUNICATION AND EDUCATION ATTEMPTED WITH PT; PT THEN BEGAN MOCKING THIS RN AND RT BRYAN IN A HIGH PITCH VOICE. 0: PT SEEMS VERY RESTLESS AT THIS TIME; REQUESTING THAT "ALL OF THE NEEDLES" BE TAKEN OUT OF HIS ARM. THIS RN PROVIDED EDUCATION ABOUT IV'S AND THE NEED FOR THEM TO STAY FOR MEDICATION. PT SAYS HE, "HAS NEVER BEEN TREATED LIKE THIS BEFORE AND GETS ALONG JUST FINE AT HOME." THIS RN ONCE AGAIN PROVIDED EDUCATION TO PT REGARDING HIS MEDICAL STATUS AND THE NEED FOR THE MEDICATION AND OXYGEN. THIS RN ALSO INFORMED PT THAT HE IS FREE TO LEAVE ANY TIME HE WISHES.
--- NOTE | 2019-03-29 23:20 | NUR ---
2320: PT CONTINUES TO BE VERY RESTLESS AND AGITATED. PT TAKING OFF BLOOD PRESSURE CUFF AND REPORTS HE "FEELS ANXIOUS." THIS RN ADMINISTERED 5 MG IV HALDOL ORDERED. BED PLACED IN LOWEST POSITION, CALL LIGHT WITHIN REACH AND BED ALARM SET. 0000: PT RESTING QUIETLY AT THIS TIME. RESPIRATIONS ARE EVEN AND NON-LABORED. WILL CONTINUE TO MONITOR.
[2019-03-30] VITALS (7 sets, daily range): BP systolic 101–157; BP diastolic 70–109
[2019-03-30] MEDS: RT-ALBUTEROL/IPRATROPIUM 3 ML (DUONEB) VIAL INH SCH ×6 (01:22→22:46)
[2019-03-30 03:07] LABS: HEMOGLOBIN 13.8 G/DL (13.3-17.7); MEAN PLATELET VOLUME 9.8 FL (7.4-10.4); RED CELL DISTRIBUTION WIDTH 14.4 % (10.0-14.5)
[2019-03-30 03:19] LABS: BUN/CREATININE RATIO 21; CALCIUM 8.1 MG/DL (8.5-10.1); CARBON DIOXIDE 32 MMOL/L (21-32); CHLORIDE 100 MMOL/L (98-107); CREATININE SERUM 0.86 MG/DL (0.60-1.30); GFR ESTIMATED > 60; GLUCOSE 177 MG/DL (70-105); MAGNESIUM 2.5 MG/DL (1.6-2.4); PHOSPHORUS 2.5 MG/DL (2.3-4.7); POTASSIUM 4.6 MMOL/L (3.6-5.0); SODIUM 141 MMOL/L (135-145)
[2019-03-30] MEDS: POTASSIUM CL 10MEQ/50ML IVPB 50 ML IV SCH (03:29)
[2019-03-30] MEDS: ACETAMINOPHEN 500 MG TAB (TYLENOL) PO SCH ×4 (03:29→20:35)
[2019-03-30] MEDS: MAGNESIUM 1 GM/100 ML IVPB 100 ML IV SCH (03:29)
[2019-03-30] MEDS: KCL 20 MEQ TAB (K-DUR) PO SCH (03:34)
[2019-03-30] MEDS: inSUlin ASPART (NovoLOG) 1 UNIT/0.01 ML (CHARGE PER UNIT) SC SCH ×4 (03:36→20:36)
[2019-03-30] MEDS: DILTIAZEM IV SCH ×2 (05:56)
[2019-03-30] MEDS: methylPREDNISolone 40 MG/ML (Solu-MEDROL) VIAL IV SCH (08:41)
[2019-03-30] MEDS: FAMOTIDINE 20 MG (PEPCID) TABLET PO SCH ×2 (08:42→20:35)
[2019-03-30] MEDS: METHIMAZOLE TABLET 5 MG TABLET PO SCH (08:42)
[2019-03-30] MEDS: meTOprolol SUCCINATE 100 MG (TOPROL XL) TAB PO SCH (08:42)
[2019-03-30] MEDS: LORATADINE (CLARITIN) 10 MG TAB PO SCH (08:43)
[2019-03-30] MEDS: FLUTICASONE NASAL SPRAY (FLONASE) 16 GM BTL NS SCH (08:43)
[2019-03-30] MEDS: ASPIRIN 81 MG CHEW (CHILDREN'S ASA) PO SCH (08:43)
[2019-03-30] MEDS: APIXABAN 5 MG (ELIQUIS) TABLET PO SCH ×2 (08:43→20:35)
[2019-03-30] MEDS: DIGOXIN 0.25 MG (LANOXIN) TAB PO SCH (08:44)
--- NOTE | 2019-03-30 09:08 | Diagnostic Imaging Report ---
INDICATION: Dyspnea Portable chest shows cardiomegaly with mild vascular congestion. No infiltrates or effusions are seen. PICC line tip is in the SVC. IMPRESSION: There is cardiomegaly and vascular congestion similar to the study from 03/29/2019. Dictated by: Dictated on workstation # [id number]
--- NOTE | 2019-03-30 09:25 | Pulmonary Progress Note ---
Subjective Time Seen by a Provider: 09:23 Sepsis Event Evaluation Height, Weight, BMI Height: 6'0.00" Weight: 325lbs. 0.0oz. 147.059163lh; 45.76 BMI Method:Stated Exam Exam Vital Signs Date Time Temp Pulse Resp B/P (MAP) Pulse Ox O2 Delivery O2 Flow Rate FiO2 03/30/19 08:55 92 Vapotherm 25.00 30 03/30/19 08:00 137 24 119/78 (92) 93 Vapotherm 25.00 40.00 03/30/19 07:00 121 03/30/19 06:16 94 Vapotherm 25.00 50 03/30/19 06:00 144 21 157/109 (125) 95 Vapotherm 25.00 40.00 03/30/19 05:56 125/95 03/30/19 05:00 109 22 128/104 (112) 94 Vapotherm 25.00 40.00 03/30/19 04:00 120 20 130/92 (105) 94 Vapotherm 25.00 40.00 03/30/19 03:00 105 18 101/70 (80) 93 Vapotherm 25.00 40.00 03/30/19 02:19 Vapotherm 25.00 50.00 03/30/19 02:00 112 18 103/72 (82) 94 Vapotherm 25.00 40.00 03/30/19 01:22 94 Vapotherm 25.00 50 03/30/19 01:00 110 03/29/19 23:59 36.6 03/29/19 23:00 115 25 123/87 (99) 93 Vapotherm 25.00 40.00 03/29/19 22:40 93 Vapotherm 20.00 40 03/29/19 22:00 112 20 140/101 (114) 91 Vapotherm 25.00 40.00 03/29/19 21:00 92 Vapotherm 25.00 40 03/29/19 21:00 110 28 130/85 (100) 92 Vapotherm 25.00 40.00 03/29/19 20:59 36.57192 106 28 136/92 90 20.00 03/29/19 20:00 107 28 142/94 (110) 92 Vapotherm 25.00 40.00 03/29/19 19:51 36.9 106 28 136/92 (107) 90 Vapotherm 25.00 40.00 03/29/19 19:09 37.0 03/29/19 19:00 117 03/29/19 19:00 117 24 132/86 (101) 92 Vapotherm 25.00 40.00 03/29/19 16:00 36.9 107 23 124/81 (95) 90 Vapotherm 20.00 35.00 03/29/19 14:02 94 Vapotherm 20.00 35 03/29/19 12:56 111 03/29/19 12:00 37.1 112 25 109/96 (100) 90 Vapotherm 20.00 35.00 03/29/19 11:02 140/97 03/29/19 10:05 94 Vapotherm 20.00 45 I & O 03/30/19 07:00 Intake Total 3010 ml Output Total 4750 ml Balance -1740 ml Height & Weight Height: 6'0.00" Weight: 325lbs. 0.0oz. 147.639036pm; 45.76 BMI Method:Stated General Appearance: Moderate Distress, Obese HEENT: Pharynx Normal Respiratory: No Accessory Muscle Use, No Respiratory Distress, Decreased Breath Sounds, Wheezing, Other (a few fine basilar rales without wheezing or rhonchi elsewhere the chest is clear) Cardiovascular: No Edema, No Gallop, No JVD, No Murmur, Irregularly Irregular Capillary Refill: Less Than 3 Seconds Gastrointestinal: non tender, soft Extremity: Normal Capillary Refill, Normal Inspection, Normal Range of Motion, Non Tender, No Calf Tenderness, No Pedal Edema Neurologic/Psychiatric: Alert, Oriented x3 Skin: Normal Color, Warm/Dry, Damp (with a flushed appearance) Results Lab Laboratory Tests 03/29/19 03:57 03/30/19 02:50 Assessment/Plan Assessment/Plan Acute respiratory failure with pneumonia and influenza -zosyn - will d/c today -Oxygen -Solumedrol - d/c -Will give lasix x 1 secondary to BNP and CXR Agitation/anxiety - risperadol Influenza A -Tamiflu Afib rvr `-Cardizem gtt -Eliquis -Cardiology following Hx of hyperthyroid -Methimazole HELEN DO DO Mar 30, 2019 09:25
[2019-03-30] MEDS ORDERED: FUROSEMIDE 40 MG/4 ML INJ (LASIX) IVP ONE (09:30)
[2019-03-30] MEDS ORDERED: dilTIAZem120 MG (CARDIZEM CD) CAP PO NR (10:00)
--- NOTE | 2019-03-30 10:30 | Progress Note - Cardiology ---
Cardiology SOAP Progress Note Subjective: Another episode of confusion last night, he says No cp or palp or syncope Mod exertional shortness of breath Gen malaise and weakness No n/v/d Objective: I&O/Vital Signs 03/29/19 03/29/19 03/29/19 03/30/19 22:40 23:00 23:59 01:00 Temp 36.6 Pulse 115 110 Resp 25 B/P (MAP) 123/87 (99) Pulse Ox 93 93 O2 Delivery Vapotherm Vapotherm O2 Flow Rate 20.00 25.00 40.00 FiO2 40 03/30/19 03/30/19 03/30/19 03/30/19 01:22 02:00 02:19 03:00 Pulse 112 105 Resp 18 18 B/P (MAP) 103/72 (82) 101/70 (80) Pulse Ox 94 94 93 O2 Delivery Vapotherm Vapotherm Vapotherm Vapotherm O2 Flow Rate 25.00 25.00 25.00 25.00 40.00 50.00 40.00 FiO2 50 03/30/19 03/30/19 03/30/19 03/30/19 04:00 05:00 05:56 06:00 Pulse 120 109 144 Resp 20 22 21 B/P (MAP) 130/92 (105) 128/104 (112) 125/95 157/109 (125) Pulse Ox 94 94 95 O2 Delivery Vapotherm Vapotherm Vapotherm O2 Flow Rate 25.00 25.00 25.00 40.00 40.00 40.00 03/30/19 03/30/19 03/30/19 03/30/19 06:16 07:00 08:00 08:55 Pulse 121 137 Resp 24 B/P (MAP) 119/78 (92) Pulse Ox 94 93 92 O2 Delivery Vapotherm Vapotherm Vapotherm O2 Flow Rate 25.00 25.00 25.00 40.00 FiO2 50 30 03/30/19 00:00 Intake Total 1245 ml Output Total 2575 ml Balance -1330 ml Weight (Pounds): 325 Weight (Ounces): 0.0 Weight (Calculated Kilograms): 147.606330 Constitutional: AAO x 3, well-developed, well-nourished Respiratory: other Cardiovascular: irregularly irregular, tachycardia, S1 and S2, systolic murmur Gastrointestional: soft, audible bowel sounds Extremities: significant edema Neurologic/Psychiatric: oriented x 3, other Skin: normal color, warm/dry Results/Procedures: Labs Laboratory Tests 03/29/19 11:01: Glucometer 202H 03/29/19 15:57: Glucometer 161H 03/29/19 19:50: Glucometer 225H 03/30/19 02:50: White Blood Count 8.0, Red Blood Count 4.85, Hemoglobin 13.8, Hematocrit 46, Mean Corpuscular Volume 94, Mean Corpuscular Hemoglobin 29, Mean Corpuscular Hemoglobin Concent 30L, Red Cell Distribution Width 14.4, Platelet Count 199, Mean Platelet Volume 9.8, Sodium Level 141, Potassium Level 4.6, Chloride Level 100, Carbon Dioxide Level 32, Anion Gap 9, Blood Urea Nitrogen 18, Creatinine 0.86, Estimat Glomerular Filtration Rate > 60, BUN/Creatinine Ratio 21, Glucose Level 177H, Calcium Level 8.1L, Phosphorus Level 2.5, Magnesium Level 2.5H Microbiology 03/25/19 Blood Culture - Preliminary, Resulted No growth Laboratory Tests 03/29/19 03:57 03/30/19 02:50 A/P: Assessment: Influenza and probable pneumonia, being managed by the Med and the ICU services Intermittent ICU psychosis ('owning') A Fib with RVR. Has h/o P.a-fib (first documented on 02-21-17) - Holter of 11-12-18 showed a-fib throughout the study with a generally rapid vent response Card cath of 02/23/17: Mild CAD (mild ostial disease of LCX and LAD), no obs tructive CAD, global hypokinesis, EF approx 35% (eval impaired by a rapid vent rate), mild MR, elevated LVEDP MPI of Dec 2018 showed no evidence of signif myocardial ischemia or infarction. LVEF 42%. Atrial fib seen throughout the study with a somewhat rapid response Eliquis for stroke prophylaxis Echo of 03/26/19 shows LVEF 45-50% (EF likely impaired due to A Fib with RVR during this study), RVSP 22 mmHg H/o chronic systolic and diastolic CHF due to non-ischemic cardiomyopathy - clinically compensated Sleep apnea syndrome - he is intermittently non-compliant with treatment Chronic right shoulder pain d/t torn rotator cuff H/o bladder cancer with surgical treatment in 2009 H/o tobaccoism - quit in 2009 Elevated BMI of approx 47 Hyperthyroidism, treated by methimazole by his portfolio director Dr Baron (and followed by her) H/o intermittent non-specific right groin discomfort of undetermined etiology. Vascular u/s of R lower limb did not show significant proximal vascular issue (flow in R DP was monophasic suggestive of possible distal disease, but pt does not report any signs or symptoms of limb claudication or of distal vascular compromise) Plan: * Complex management due to multiple comorbidities that are outlined above * HR remains elevated and very difficult to control. This is a chronic problem and aggravated by his anxiety. He does tolerate high heart-rates w/o symptoms or hemodynamic compromise. We recommend increasing oral dilt and d/c iv dilt * Continue dig and bb for vent rate control * Continue apixaban for stroke prophylaxis * Management of hyperthyroidism per Medical services * Monitor labs closely EVELIA CARMEN MD FACP FAC CCDS Mar 30, 2019 10:30
[2019-03-30] MEDS: ADVAIR HFA 115/21 MCG INHALER 8 GM IH SCH ×2 (11:00→19:27)
--- NOTE | 2019-03-30 13:13 | Progress Note - Hospitalist ---
Subjective HPI/CC On Admission Date Seen by Provider: Mar 30, 2019 Time Seen by Provider: 12:00 patient reports he was in his usual state of health until yesterday morning when he first developed some sneezing and runny nose. Shortly thereafter he developed chills fever and lethargy with a mild headache. He slept most the day but last night felt more short of breath with increasing cough and felt feverish. He presented in [facility] emergency room where his temperature was 103 there is suggestion of bibasilar pneumonia on the chest x-ray and he tested positive for influenza a. He has chronic atrial fibrillation and while his t emperature was 103 heart rate was in the 130-140 beat per minute range. He denied chest pain. His oxygen saturation was in the upper 80s oxygen was initiated which brought him up into the low to mid 90 range without evidence for respiratory distress. Upon my arrival he had a dry cough otherwise did not appear to be in acute distress and his heart rate was in the 110-120 beat per minute range. He received Zosyn and Tamiflu 1 in addition to I believe diltiazem by mouth or may have been his metoprolol and he was also given albuterol base breathing treatment. Past medical history is significant for atrial fibrillation chronic for which she is on Eliquis 5 mg twice a day diltiazem 360 mg daily metoprolol 50 mg daily. He apparently has history of hyperthyroidism and is been on methimazole 5 mg daily Subjective/Events-last exam Patient feels better Denies dyspnea No palpitations Cardizem drip off Conferred with lpn rn of Systems General: Fatigue Objective Exam Vital Signs Vital Signs Date Time Temp Pulse Resp B/P (MAP) Pulse Ox O2 Delivery O2 Flow Rate FiO2 03/30/19 16:00 35.8 83 23 117/77 (90) 97 Vapotherm 25.00 40.00 03/30/19 14:52 50 Capillary Refill : Less Than 3 Seconds General Appearance: No Apparent Distress, WD/WN, Chronically ill, Obese Respiratory: No Accessory Muscle Use, No Respiratory Distress, Decreased Breath Sounds, Rales Cardiovascular: Regular Rate, Rhythm Neurologic/Psychiatric: Alert, Oriented x3, No Motor/Sensory Deficits, Normal Mood/Affect Results/Procedures Lab Laboratory Tests 03/30/19 02:50 Patient resulted labs reviewed. Assessment/Plan Assessment and Plan Assess & Plan/Chief Complaint Assessment: Acute respiratory failure with pneumonia and influenza completed treatment for both Agitation/anxiety requiring antipsychotics Influenza A Afib RVR Hx of hyperthyroidism Plan: OAC AF rate control Monitor hypoxia Diagnosis/Problems Diagnosis/Problems (1) Flu Status: Acute (2) Pneumonia Status: Acute Qualifiers: Pneumonia type: due to influenza A virus (3) Respiratory acidosis Clinical Quality Measures DVT/VTE Risk/Contraindication: Risk Factor Score Per Nursin RFS Level Per Nursing on Admit: 4+=Very High NICOLA ORTIZ DO Mar 30, 2019 13:13
[2019-03-30] MEDS: NS IV 1000 ML 1,000 ML IV SCH (17:11)
[2019-03-31] VITALS: BP 123/72
[2019-03-31] MEDS: ACETAMINOPHEN 500 MG TAB (TYLENOL) PO SCH ×5 (02:53→21:01)
[2019-03-31] MEDS: RT-ALBUTEROL/IPRATROPIUM 3 ML (DUONEB) VIAL INH SCH ×4 (03:34→15:31)
[2019-03-31 03:37] LABS: MAGNESIUM 2.4 MG/DL (1.6-2.4); PHOSPHORUS 2.9 MG/DL (2.3-4.7)
[2019-03-31 04:00] VITALS: BP 116/68
--- NOTE | 2019-03-31 04:59 | Pulmonary Progress Note ---
Subjective Time Seen by a Provider: 04:55 Sepsis Event Evaluation Height, Weight, BMI Height: 6'0.00" Weight: 325lbs. 0.0oz. 147.530649sx; 45.76 BMI Method:Stated Exam Exam Vital Signs Date Time Temp Pulse Resp B/P (MAP) Pulse Ox O2 Delivery O2 Flow Rate FiO2 03/31/19 04:00 36.6 116/68 (84) 03/31/19 03:38 Vapotherm 20.00 40.00 03/31/19 03:34 96 Vapotherm 23.00 40 03/31/19 01:00 122 03/31/19 00:00 36.6 03/31/19 00:00 123/72 (89) 03/30/19 23:00 Vapotherm 23.00 40.00 03/30/19 22:46 96 Vapotherm 25.00 45 03/30/19 21:00 92 Vapotherm 25.00 30 03/30/19 20:00 36.2 03/30/19 19:27 95 Vapotherm 25.00 50 03/30/19 19:00 127 03/30/19 16:00 35.8 83 23 117/77 (90) 97 Vapotherm 25.00 40.00 03/30/19 14:52 95 Vapotherm 25.00 50 03/30/19 12:46 123 03/30/19 12:00 36.2 03/30/19 12:00 118 22 93 Vapotherm 25.00 40.00 03/30/19 11:07 95 Vapotherm 25.00 50 03/30/19 08:55 92 Vapotherm 25.00 30 03/30/19 08:00 137 24 119/78 (92) 93 Vapotherm 25.00 40.00 03/30/19 07:00 121 03/30/19 06:16 94 Vapotherm 25.00 50 03/30/19 06:00 144 21 157/109 (125) 95 Vapotherm 25.00 40.00 03/30/19 05:56 125/95 03/30/19 05:00 109 22 128/104 (112) 94 Vapotherm 25.00 40.00 I & O 03/31/19 07:00 Intake Total 1375 ml Output Total 2150 ml Balance -775 ml Height & Weight Height: 6'0.00" Weight: 325lbs. 0.0oz. 147.775692rl; 45.76 BMI Method:Stated General Appearance: No Apparent Distress, WD/WN, Chronically ill, Obese HEENT: Pharynx Normal Respiratory: No Accessory Muscle Use, No Respiratory Distress, Decreased Breath Sounds, Rales Cardiovascular: Regular Rate, Rhythm Capillary Refill: Less Than 3 Seconds Gastrointestinal: non tender, soft Extremity: Normal Capillary Refill, Normal Inspection, Normal Range of Motion, Non Tender, No Calf Tenderness, No Pedal Edema Neurologic/Psychiatric: Alert, Oriented x3, No Motor/Sensory Deficits, Normal Mood/Affect Skin: Normal Color, Warm/Dry, Damp (with a flushed appearance) Results Lab Laboratory Tests 03/30/19 02:50 Assessment/Plan Assessment/Plan Acute respiratory failure with pneumonia and influenza -zosyn - will d/c today -Oxygen -Solumedrol - d/c -Will give lasix x 1 secondary to BNP and CXR Agitation/anxiety - risperadol Influenza A -Tamiflu Afib rvr `-Cardizem gtt -Eliquis -Cardiology following Hx of hyperthyroid -Methimazole HELEN DO DO Mar 31, 2019 04:59
[2019-03-31 05:23] LABS: BASOPHILS % (AUTO) 0 % (0-10); EOSINOPHILS % (AUTO) 0 % (0-10); HEMATOCRIT 49 % (40-54); HEMOGLOBIN 15.2 G/DL (13.3-17.7); LYMPHOCYTES % (AUTO) 10 % (12-44); MEAN CORPUSCULAR HEMOGLOBIN 29 PG (25-34); MEAN CORPUSCULAR HGB CONC 31 G/DL (32-36); MEAN CORPUSCULAR VOLUME 94 FL (80-99); MEAN PLATELET VOLUME 10.3 FL (7.4-10.4); MONOCYTES # (AUTO) 0.9 X 10^3 (0.0-1.0); MONOCYTES % (AUTO) 9 % (0-12); NEUTROPHILS # (AUTO) 7.6 X 10^3 (1.8-7.8); NEUTROPHILS % (AUTO) 81 % (42-75); PLATELET COUNT 234 10^3/uL (130-400); WHITE BLOOD COUNT 9.4 10^3/uL (4.3-11.0)
[2019-03-31 05:33] LABS: BUN/CREATININE RATIO 22; CALCIUM 8.2 MG/DL (8.5-10.1); CARBON DIOXIDE 32 MMOL/L (21-32); CHLORIDE 98 MMOL/L (98-107); CREATININE SERUM 0.92 MG/DL (0.60-1.30); GFR ESTIMATED > 60; GLUCOSE 151 MG/DL (70-105); POTASSIUM 4.5 MMOL/L (3.6-5.0); SODIUM 141 MMOL/L (135-145)
[2019-03-31] MEDS: inSUlin ASPART (NovoLOG) 1 UNIT/0.01 ML (CHARGE PER UNIT) SC SCH ×4 (06:01→21:02)
--- NOTE | 2019-03-31 06:43 | NUR ---
REPORT RECEIVED. PT A/O. DENIES SOA. ON VEPO SAT>90%. AFEBRILE. VSS. SLEEPS WELL. DENIES NEEDS. WILL GIVE REPORT TO ONCOMING RN
[2019-03-31] MEDS: ADVAIR HFA 115/21 MCG INHALER 8 GM IH SCH ×2 (06:54→20:51)
--- NOTE | 2019-03-31 07:31 | Diagnostic Imaging Report ---
INDICATION: Dyspnea. Comparison made with prior examination 03/30/2019. FINDINGS: There is cardiomegaly. There is some venous congestion. There is no pleural effusion or pneumothorax. Mediastinum is unremarkable. The right upper extremity PICC line is in satisfactory position. IMPRESSION: Cardiomegaly and mild central pulmonary venous congestion. Dictated by: Dictated on workstation # [id number]
[2019-03-31] MEDS: FLUTICASONE NASAL SPRAY (FLONASE) 16 GM BTL NS SCH (08:38)
[2019-03-31] MEDS: ASPIRIN 81 MG CHEW (CHILDREN'S ASA) PO SCH (08:38)
[2019-03-31] MEDS: FAMOTIDINE 20 MG (PEPCID) TABLET PO SCH ×2 (08:39→21:01)
[2019-03-31] MEDS: APIXABAN 5 MG (ELIQUIS) TABLET PO SCH ×2 (08:39→21:01)
[2019-03-31] MEDS: DIGOXIN 0.25 MG (LANOXIN) TAB PO SCH (08:39)
[2019-03-31] MEDS: meTOprolol SUCCINATE 100 MG (TOPROL XL) TAB PO SCH (08:39)
[2019-03-31] MEDS: METHIMAZOLE TABLET 5 MG TABLET PO SCH (08:40)
[2019-03-31] MEDS: LORATADINE (CLARITIN) 10 MG TAB PO SCH (08:40)
--- NOTE | 2019-03-31 12:00 | Progress Note - Cardiology ---
Cardiology SOAP Progress Note Subjective: States did not get confused last night Poor stamina: short of breath with mild activity No palp or syncope or cp No n/v/d Objective: I&O/Vital Signs 03/31/19 03/31/19 03/31/19 03/31/19 00:00 00:00 01:00 03:34 Temp 36.6 Pulse 122 B/P (MAP) 123/72 (89) Pulse Ox 96 O2 Delivery Vapotherm O2 Flow Rate 23.00 FiO2 40 03/31/19 03/31/19 03/31/19 03/31/19 03:38 04:00 06:55 07:00 Temp 36.6 Pulse 126 B/P (MAP) 116/68 (84) Pulse Ox 91 O2 Delivery Vapotherm Vapotherm O2 Flow Rate 20.00 20.00 40.00 FiO2 40 03/31/19 03/31/19 03/31/19 03/31/19 08:00 08:00 09:00 10:31 Temp 36.2 Pulse 115 Resp 10 B/P (MAP) Pulse Ox 96 94 94 O2 Delivery Vapotherm High Flow N/C High Flow N/C O2 Flow Rate 20.00 4.00 4.00 40.00 03/31/19 00:00 Intake Total 1375 ml Output Total 2150 ml Balance -775 ml Weight (Pounds): 325 Weight (Ounces): 0.0 Weight (Calculated Kilograms): 147.161664 Constitutional: AAO x 3, well-developed, well-nourished Respiratory: other Cardiovascular: irregularly irregular, tachycardia, S1 and S2, systolic murmur Gastrointestional: soft, audible bowel sounds Extremities: significant edema Neurologic/Psychiatric: oriented x 3, other Skin: normal color, warm/dry Results/Procedures: Labs Laboratory Tests 03/30/19 15:44: Glucometer 292H 03/30/19 20:22: Glucometer 204H 03/31/19 03:15: White Blood Count 9.4, Red Blood Count 5.24, Hemoglobin 15.2, Hematocrit 49, Mean Corpuscular Volume 94, Mean Corpuscular Hemoglobin 29, Mean Corpuscular Hemoglobin Concent 31L, Red Cell Distribution Width 14.0, Platelet Count 234, Mean Platelet Volume 10.3, Neutrophils (%) (Auto) 81H, Lymphocytes (%) (Auto) 10L, Monocytes (%) (Auto) 9, Eosinophils (%) (Auto) 0, Basophils (%) (Auto) 0, Neutrophils # (Auto) 7.6, Lymphocytes # (Auto) 1.0, Monocytes # (Auto) 0.9, Eosinophils # (Auto) 0.0, Basophils # (Auto) 0.0, Sodium Level 141, Potassium Level 4.5, Chloride Level 98, Carbon Dioxide Level 32, Anion Gap 11, Blood Urea Nitrogen 20H, Creatinine 0.92, Estimat Glomerular Filtration Rate > 60, BUN/Creatinine Ratio 22, Glucose Level 151H, Calcium Level 8.2L, Phosphorus Level 2.9, Magnesium Level 2.4, B-Type Natriuretic Peptide 82.6, Digoxin Level < 0.30L 03/31/19 10:33: Glucometer 183H Microbiology 03/25/19 Blood Culture - Final, Complete No growth Laboratory Tests 03/30/19 02:50 03/31/19 03:15 A/P: Assessment: Influenza and probable pneumonia, being managed by the Med and the ICU services Intermittent ICU psychosis ('sundowning') A Fib with RVR. Has h/o P.a-fib (first documented on 02-21-17) Card cath of 02/23/17: Mild CAD (mild ostial disease of LCX and LAD), no obstructive CAD, global hypokinesis, EF approx 35% (eval impaired by a rapid vent rate), mild MR, elevated LVEDP MPI of Dec 2018 showed no evidence of signif myocardial ischemia or infarction. LVEF 42%. 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 Vascular u/s of R lower limb did not show significant proximal vascular issue (flow in R DP was monophasic suggestive of possible distal disease, but pt does not report any signs or symptoms of limb claudication or of distal vascular compromise) Plan: * Complex management due to multiple comorbidities that are outlined above * HR remains elevated and very difficult to control. This is a chronic problem and aggravated by his anxiety. He does tolerate high heart-rates w/o symptoms or hemodynamic compromise * Dig level is essentially undetectable. We will increase dig * Continue other rate-controlling meds * Continue apixaban for stroke prophylaxis * Management of hyperthyroidism per Medical services * Monitor labs closely EVELIA CARMEN MD FACP FAC CCDS Mar 31, 2019 12:00
--- NOTE | 2019-03-31 12:03 | NUR ---
REPORT TAKEN AT THIS TIME FROM Odalys DOWNING RN. THIS RN WILL ASSUME CARE OF THIS PATIENT WHEN HE ARRIVES TO ROOM 429-1.
[2019-03-31] MEDS ORDERED: DIGOXIN 0.25 MG (LANOXIN) TAB PO ONE (12:15)
--- NOTE | 2019-03-31 13:38 | Progress Note - Hospitalist ---
Subjective HPI/CC On Admission Date Seen by Provider: Mar 31, 2019 Time Seen by Provider: 12:00 patient reports he was in his usual state of health until yesterday morning when he first developed some sneezing and runny nose. Shortly thereafter he developed chills fever and lethargy with a mild headache. He slept most the day but last night felt more short of breath with increasing cough and felt feverish. He presented in [facility] emergency room where his temperature was 103 there is suggestion of bibasilar pneumonia on the chest x-ray and he tested positive for influenza a. He has chronic atrial fibrillation and while his t emperature was 103 heart rate was in the 130-140 beat per minute range. He denied chest pain. His oxygen saturation was in the upper 80s oxygen was initiated which brought him up into the low to mid 90 range without evidence for respiratory distress. Upon my arrival he had a dry cough otherwise did not appear to be in acute distress and his heart rate was in the 110-120 beat per minute range. He received Zosyn and Tamiflu 1 in addition to I believe diltiazem by mouth or may have been his metoprolol and he was also given albuterol base breathing treatment. Past medical history is significant for atrial fibrillation chronic for which she is on Eliquis 5 mg twice a day diltiazem 360 mg daily metoprolol 50 mg daily. He apparently has history of hyperthyroidism and is been on methimazole 5 mg daily Subjective/Events-last exam Patient feels better Still wheezing Lives alone PT/OT tomorrow and may need IRF No pain is reported No BM yet so ordered meds. HR 112 Review of Systems Pulmonary: Dyspnea, Cough Objective Exam Vital Signs Vital Signs Date Time Temp Pulse Resp B/P (MAP) Pulse Ox O2 Delivery O2 Flow Rate FiO2 03/31/19 16:00 35.9 97 18 107/74 (85) 93 High Flow N/C 4.00 03/31/19 06:55 40 Capillary Refill : Less Than 3 Seconds General Appearance: No Apparent Distress, WD/WN Respiratory: Chest Non Tender, Lungs Clear, Normal Breath Sounds, No Accessory Muscle Use, No Respiratory Distress Cardiovascular: No Edema, No Gallop, No JVD, No Murmur, Normal Peripheral Pulses, Irregularly Irregular Results/Procedures Lab Laboratory Tests 03/31/19 03:15 Patient resulted labs reviewed. Assessment/Plan Assessment and Plan Assess & Plan/Chief Complaint Assessment: Acute respiratory failure with pneumonia and influenza completed treatment for both Agitation/anxiety requiring antipsychotics Influenza A Afib RVR Hx of hyperthyroidism Plan: OAC AF rate control Monitor hypoxia PT/OT IRF? Diagnosis/Problems Diagnosis/Problems (1) Flu Status: Acute (2) Pneumonia Status: Acute Qualifiers: Pneumonia type: due to influenza A virus (3) Respiratory acidosis Clinical Quality Measures DVT/VTE Risk/Contraindication: Risk Factor Score Per Nursin RFS Level Per Nursing on Admit: 4+=Very High NICOLA ORTIZ DO Mar 31, 2019 13:38
[2019-03-31] MEDS: DOCUSATE SODIUM 100 MG (COLACE) CAP PO SCH ×2 (13:54→21:00)
[2019-03-31] MEDS: SENNA W/DOCUSATE (SENOKOT S) TABLET PO SCH ×2 (13:54→21:06)
[2019-03-31] MEDS: polyethylene glycoL POWDER 17 GM (MIRALAX) PACK PO SCH ×2 (13:54→21:06)
[2019-03-31 15:22] VITALS: BP 116/68
[2019-03-31 16:00] VITALS: BP 107/74
[2019-03-31 20:00] VITALS: BP 107/71
[2019-03-31] MEDS ORDERED: RT-ALBUTEROL/IPRATROPIUM 3 ML (DUONEB) VIAL INH SCH (21:00)
[2019-04-01] VITALS: BP 129/78
[2019-04-01] MEDS: ACETAMINOPHEN 500 MG TAB (TYLENOL) PO SCH ×2 (03:34→08:44)
[2019-04-01 04:00] VITALS: BP 131/82
[2019-04-01] MEDS: RT-ALBUTEROL/IPRATROPIUM 3 ML (DUONEB) VIAL INH SCH ×2 (04:34→09:24)
[2019-04-01 05:15] LABS: BASOPHILS % (AUTO) 0 % (0-10); EOSINOPHILS # (AUTO) 0.1 10^3/uL (0.0-0.3); EOSINOPHILS % (AUTO) 1 % (0-10); HEMATOCRIT 50 % (40-54); HEMOGLOBIN 15.6 G/DL (13.3-17.7); LYMPHOCYTES # (AUTO) 1.7 X 10^3 (1.0-4.0); LYMPHOCYTES % (AUTO) 20 % (12-44); MEAN CORPUSCULAR HEMOGLOBIN 29 PG (25-34); MEAN CORPUSCULAR HGB CONC 32 G/DL (32-36); MEAN CORPUSCULAR VOLUME 92 FL (80-99); MEAN PLATELET VOLUME 9.5 FL (7.4-10.4); MONOCYTES # (AUTO) 0.8 X 10^3 (0.0-1.0); MONOCYTES % (AUTO) 9 % (0-12); NEUTROPHILS # (AUTO) 5.9 X 10^3 (1.8-7.8); NEUTROPHILS % (AUTO) 70 % (42-75); PLATELET COUNT 233 10^3/uL (130-400); RED CELL DISTRIBUTION WIDTH 13.8 % (10.0-14.5); WHITE BLOOD COUNT 8.4 10^3/uL (4.3-11.0)
[2019-04-01 05:38] LABS: BUN/CREATININE RATIO 22; CARBON DIOXIDE 35 MMOL/L (21-32); CHLORIDE 98 MMOL/L (98-107); CREATININE SERUM 0.97 MG/DL (0.60-1.30); GFR ESTIMATED > 60; GLUCOSE 103 MG/DL (70-105); MAGNESIUM 2.2 MG/DL (1.6-2.4); PHOSPHORUS 3.4 MG/DL (2.3-4.7); POTASSIUM 3.9 MMOL/L (3.6-5.0); SODIUM 142 MMOL/L (135-145)
[2019-04-01] MEDS: inSUlin ASPART (NovoLOG) 1 UNIT/0.01 ML (CHARGE PER UNIT) SC SCH ×2 (05:50→13:35)
[2019-04-01 08:00] VITALS: BP 131/79
[2019-04-01] MEDS: SENNA W/DOCUSATE (SENOKOT S) TABLET PO SCH (08:44)
[2019-04-01] MEDS: FAMOTIDINE 20 MG (PEPCID) TABLET PO SCH (08:44)
[2019-04-01] MEDS: DOCUSATE SODIUM 100 MG (COLACE) CAP PO SCH (08:45)
[2019-04-01] MEDS: FLUTICASONE NASAL SPRAY (FLONASE) 16 GM BTL NS SCH (08:45)
[2019-04-01] MEDS: METHIMAZOLE TABLET 5 MG TABLET PO SCH (08:45)
[2019-04-01] MEDS: APIXABAN 5 MG (ELIQUIS) TABLET PO SCH (08:45)
[2019-04-01] MEDS: ASPIRIN 81 MG CHEW (CHILDREN'S ASA) PO SCH (08:45)
[2019-04-01] MEDS: LORATADINE (CLARITIN) 10 MG TAB PO SCH (08:45)
[2019-04-01] MEDS: meTOprolol SUCCINATE 100 MG (TOPROL XL) TAB PO SCH (08:45)
[2019-04-01] MEDS: polyethylene glycoL POWDER 17 GM (MIRALAX) PACK PO SCH (08:48)
[2019-04-01] MEDS ORDERED: DIGOXIN 0.125 MG (LANOXIN) TAB PO SCH (09:00)
--- NOTE | 2019-04-01 09:44 | Progress Note - Cardiology ---
Cardiology SOAP Progress Note Subjective: Sitting up in recliner at the bedside. States he is feeling better. No c/o CP, palpitations, syncope or near syncope. Feels SOB is improving. Frequent productive cough. Objective: I&O/Vital Signs 04/01/19 04/01/19 04/01/19 04/01/19 00:00 01:00 04:00 06:42 Temp 36.5 36.0 Pulse 90 109 104 107 Resp 18 20 B/P (MAP) 129/78 (95) 131/82 (98) Pulse Ox 94 94 O2 Delivery High Flow N/C High Flow N/C O2 Flow Rate 4.00 4.00 4.00 04/01/19 08:00 Temp 35.8 Pulse 100 Resp 16 B/P (MAP) 131/79 (96) Pulse Ox 100 O2 Delivery High Flow N/C O2 Flow Rate 4.00 04/01/19 00:00 Intake Total 1200 ml Balance 1200 ml Weight (Pounds): 325 Weight (Ounces): 0.0 Weight (Calculated Kilograms): 147.317341 Constitutional: AAO x 3, well-developed, well-nourished Respiratory: other Cardiovascular: irregularly irregular, S1 and S2, systolic murmur Gastrointestional: soft, audible bowel sounds Extremities: significant edema Neurologic/Psychiatric: oriented x 3, other Skin: normal color, warm/dry Results/Procedures: Labs Laboratory Tests 03/31/19 10:33: Glucometer 183H 03/31/19 16:18: Glucometer 160H 03/31/19 20:24: Glucometer 182H 04/01/19 05:09: White Blood Count 8.4, Red Blood Count 5.40, Hemoglobin 15.6, Hematocrit 50, Mean Corpuscular Volume 92, Mean Corpuscular Hemoglobin 29, Mean Corpuscular Hemoglobin Concent 32, Red Cell Distribution Width 13.8, Platelet Count 233, Mean Platelet Volume 9.5, Neutrophils (%) (Auto) 70, Lymphocytes (%) (Auto) 20, Monocytes (%) (Auto) 9, Eosinophils (%) (Auto) 1, Basophils (%) (Auto) 0, Neutrophils # (Auto) 5.9, Lymphocytes # (Auto) 1.7, Monocytes # (Auto) 0.8, Eosinophils # (Auto) 0.1, Basophils # (Auto) 0.0, Sodium Level 142, Potassium Level 3.9, Chloride Level 98, Carbon Dioxide Level 35H, Anion Gap 9, Blood Urea Nitrogen 21H, Creatinine 0.97, Estimat Glomerular Filtration Rate > 60, BUN/Creatinine Ratio 22, Glucose Level 103, Calcium Level 8.0L, Phosphorus Level 3.4, Magnesium Level 2.2 Microbiology 03/25/19 Blood Culture - Final, Complete No growth Laboratory Tests 03/31/19 03:15 04/01/19 05:09 A/P: Assessment: Influenza and probable pneumonia, being managed by the Med and the ICU services Intermittent ICU psychosis ('owning') A Fib with RVR. Has h/o P.a-fib (first documented on 02-21-17) Card cath of 02/23/17: Mild CAD (mild ostial disease of LCX and LAD), no obstructive CAD, global hypokinesis, EF approx 35% (eval impaired by a rapid v ent rate), mild MR, elevated LVEDP MPI of Dec 2018 showed no evidence of signif myocardial ischemia or infarction. LVEF 42%. 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 Vascular u/s of R lower limb did not show significant proximal vascular issue (flow in R DP was monophasic suggestive of possible distal disease, but pt does not report any signs or symptoms of limb claudication or of distal vascular compromise) Plan: * Complex management due to multiple comorbidities that are outlined above * HR remains elevated and very difficult to control. This is a chronic problem and aggravated by his anxiety. He does tolerate high heart-rates w/o symptoms or hemodynamic compromise * Monitor Dig level * Continue other rate-controlling meds * Continue apixaban for stroke prophylaxis * Management of hyperthyroidism per Medical services * Monitor labs closely DI MOFFETT Apr 01, 2019 09:44
--- NOTE | 2019-04-01 10:15 | Physical Therapy Evaluation ---
PT Evaluation-General Medical Diagnosis Admission Date Mar 24, 2019 at 08:08 Medical Diagnosis: influenza A/pneumonia/A-fib Onset Date: Mar 24, 2019 Therapy Diagnosis Therapy Diagnosis: debility Height/Weight Height (Feet): 6 Height (Inches): 0.00 Weight (Pounds): 325 Weight (Ounces): 0.0 Precautions Precautions/Isolations: Standard Precautions Referral Physician: Bri Reason for Referral: Evaluation/Treatment Medical History Pertinent Medical History: Atrial Fib Additional Medical History bladder cancer Current History ER at [facility] with fever and chills Reviewed History: Yes Social History Home: Single Level Current Living Status: Alone Entry Into Home: Stairs With Railing PT Steps Into Home: 2 Prior Prior Level of Function SCALE: Activities may be completed with or without assistive devices. 1-Snfrukajgu-shrnjyl completes the activity by him/herself with no assistance from a helper. 5-Set-up or Clean-up Assistance-helper sets up or cleans up; patient completes activity. [place] assists only prior to or following the activity. 4-Supervision or Touching Assistance-helper provides verbal cues and/or touching/steadying and/or contact guard assistance as patient completes activity. Assistance may be provided throughout the activity or intermittently. 3-Partial/Moderate Assistance-helper does LESS THAN HALF the effort. [place] lifts, holds or supports trunk or limbs, but provides less than half the effort. 2-Substantial/Maximal Assistance-helper does MORE THAN HALF the effort. [place] lifts or holds trunk or limbs and provides more than half the effort. 8-Hnhqrmgwe-mywzgy does ALL the effort. Patient does none of the effort to complete the activity. Or, the assistance of 2 or more helpers is required for the patient to complete the activity. If activity was not attempted, code reason: 7-Patient Refused. 9-Not Applicable-not attempted and the patient did not perform the activity before the current illness, exacerbation or injury. 10-Not Attempted due to Environmental Limitations-(lack of equipment, weather restraints, etc.). 88-Not Attempted due to Medical Conditions or Safety Concerns. Bed Mobility: 6 Transfers (B,C,W/C): 6 Gait: 6 Stairs: 6 Indoor Mobility (Ambulation): Independent Stairs: Independent Prior Devices Use: Other-see list below cane PT Evaluation-Current Subjective Patient reports he is up in room ad daria without difficultly. Patient reports he desires to return to home on this date to pay bills. Pain Numeric Pain Scale: 0-No Pain Location: No Pain Reported Objective Patient Orientation: Normal For Age Attachments: Oxygen (3L O2 HF NC) ROM/Strength ROM Lower Extremities bilateral LE WFL Strength Lower Extremities 4/5 grossly bilateral LE Integumentary/Posture Integumentary refer to nursing notes Bowel Incontinence: No Bladder Incontinence: No Posture WFL Neuromuscular (Tone, Coordination, Reflexes) grossly intact Sensory Vision: Functional Hearing: Functional Sensation Right Lower Extremit: Intact Sensation Left Lower Extremity: Intact Transfers Roll Left to Right (QC): 6 Sit to Lying (QC): 6 Lying to Sitting/Side of Bed(Q: 6 Sit to Stand (QC): 6 Chair/Exe-tv-Hcahe Xfer(QC): 6 Gait Does the Patient Walk?: Yes Mode of Locomotion: Walk Anticipated Mode of Locomotion: Walk Walk 10 feet (QC): 6 Walk 50 ft with 2 Turns(QC): 6 Walk 150 ft (QC): 6 Distance: 300' Gait Assistive Device: FWW Comments/Gait Description safe and functional with no deviation Wheelchair Training Does the Pt Use a Wheelchair?: No Balance Sitting Static: Normal Sitting Dynamic: Normal Standing Static: Normal Standing Dynamic: Normal Assessment/Needs 63 y.o. male, is currently at [facility] with all gross motor skills and does not require skilled therapy intervention. Rehab Potential: Fair PT Plan Treatment/Plan Treatment Plan: Discontinue PT, goals met Treatment Plan: Other Treatment Duration: Apr 01, 2019 Frequency: 1 time per week Estimated Hrs Per Day: .25 hour per day Patient and/or Family Agrees t: Yes Time/GCodes Time In: 935 Time Out: 947 Total Billed Treatment Time: 12 Total Billed Treatment 1 visit EVLowC 12 min ARACELI TRAN PT Apr 01, 2019 10:15
--- NOTE | 2019-04-01 11:18 | NUR ---
IRF Evaluation Order received to evaluate patient for the ARU. Chart review complete and it appears patient is ambulating (300ft, RW) and transferring with independence; therefore, patient does not require inpatient rehabilitation as he is considered 'too functional." Thank you for this referral.
[2019-04-01 12:00] VITALS: BP 120/69
[2019-04-01] MEDS ORDERED: DILT240C91 PO (12:01)
[2019-04-01] MEDS ORDERED: DIGO125T18 PO (12:01)
[2019-04-01] MEDS ORDERED: IPRA3AMP31 INH (12:01)
[2019-04-01] MEDS ORDERED: MTP100TCR PO (12:01)
--- NOTE | 2019-04-01 13:20 | NUR ---
Important Message from Medicare presented, reviewed, signed and placed in patient chart. Patient voiced no intention to appeal and deny any needs or further questions at this time.
--- NOTE | 2019-04-01 13:31 | Progress Note - Cardiology ---
Cardiology SOAP Progress Note Subjective: Feels better today and wishes to go home Denies palp or syncope Denies shortness of breath or cp Weakness and malaise have improved Objective: I&O/Vital Signs 04/01/19 04/01/19 04/01/19 04/01/19 04:00 06:42 08:00 09:00 Temp 36.0 35.8 Pulse 104 107 100 Resp 20 16 B/P (MAP) 131/82 (98) 131/79 (96) Pulse Ox 94 100 O2 Delivery High Flow N/C High Flow N/C High Flow N/C O2 Flow Rate 4.00 4.00 4.00 04/01/19 04/01/19 12:00 12:36 Temp 35.0 Pulse 84 124 Resp 20 B/P (MAP) 120/69 (86) Pulse Ox 95 O2 Delivery High Flow N/C O2 Flow Rate 4.00 04/01/19 00:00 Intake Total 1200 ml Balance 1200 ml Weight (Pounds): 325 Weight (Ounces): 0.0 Weight (Calculated Kilograms): 147.417768 Constitutional: AAO x 3, well-developed, well-nourished Respiratory: other Cardiovascular: irregularly irregular, S1 and S2, systolic murmur Gastrointestional: soft, audible bowel sounds Extremities: significant edema Neurologic/Psychiatric: oriented x 3, other Skin: normal color, warm/dry Results/Procedures: Labs Laboratory Tests 03/31/19 16:18: Glucometer 160H 03/31/19 20:24: Glucometer 182H 04/01/19 05:09: White Blood Count 8.4, Red Blood Count 5.40, Hemoglobin 15.6, Hematocrit 50, Mean Corpuscular Volume 92, Mean Corpuscular Hemoglobin 29, Mean Corpuscular Hemoglobin Concent 32, Red Cell Distribution Width 13.8, Platelet Count 233, Mean Platelet Volume 9.5, Neutrophils (%) (Auto) 70, Lymphocytes (%) (Auto) 20, Monocytes (%) (Auto) 9, Eosinophils (%) (Auto) 1, Basophils (%) (Auto) 0, Neutrophils # (Auto) 5.9, Lymphocytes # (Auto) 1.7, Monocytes # (Auto) 0.8, Eosinophils # (Auto) 0.1, Basophils # (Auto) 0.0, Sodium Level 142, Potassium Level 3.9, Chloride Level 98, Carbon Dioxide Level 35H, Anion Gap 9, Blood Urea Nitrogen 21H, Creatinine 0.97, Estimat Glomerular Filtration Rate > 60, BUN/Creatinine Ratio 22, Glucose Level 103, Calcium Level 8.0L, Phosphorus Level 3.4, Magnesium Level 2.2 04/01/19 11:15: Glucometer 121H Microbiology 03/25/19 Blood Culture - Final, Complete No growth A/P: Assessment: Influenza and probable pneumonia, managed by the Med Svce A Fib with RVR. Has h/o P.a-fib (first documented on 02-21-17) Card cath of 02/23/17: Mild CAD (mild ostial disease of LCX and LAD), no obstructive CAD, global hypokinesis, EF approx 35% (eval impaired by a rapid vent rate), mild MR, elevated LVEDP MPI of Dec 2018 showed no evidence of signif myocardial ischemia or infarction. LVEF 42%. 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 Vascular u/s of R lower limb did not show significant proximal vascular issue (flow in R DP was monophasic suggestive of possible distal disease, but pt does not report any signs or symptoms of limb claudication or of distal vascular compromise) Plan: * Complex management due to multiple comorbidities that are outlined above * He feels well now and wishes to go home * Heart rate, although not ideal, is better controlled and he is asymptomatic from it. He has refused elec CV or measures other than oral meds * Continue rate-controlling meds * Continue apixaban for stroke prophylaxis * Management of hyperthyroidism per Medical services * Outpt f/u advised EVELIA CARMEN MD FACP FAC CCDS Apr 01, 2019 13:31
--- NOTE | 2019-04-01 13:56 | Discharge Summary ---
LICO BOWLES,MED STUDENT 04/01/19 1356: Diagnosis/Chief Complaint Date of Admission Mar 24, 2019 at 08:08 Date of Discharge Discharge Date: Apr 01, 2019 Admission Diagnosis A/P 1. Influenza A with secondary viral pneumonia and hypoxemia mild ABG in [place] on 2 L per nasal cannula revealed a pH of 7.35 PCO2 52 and a PO2 of 62. With past smoking history suggests some mild hypercapnic respiratory failure considering this and it fibrillation is being admitted to the intensive care unit and will continue Tamiflu with repeat EKG and lab work in the morning. His white count was not elevated compatible with viral infection we'll continue when necessary breathing treatments. 2. Atrial fibrillation rate moderating, continue beta kerry and diltiazem therapy. We'll be continuing anticoagulant therapy. 3. History of coronary artery disease continue aspirin considering this nail was combination will initiate Pepcid for stress ulcer prophylaxis for which the patient is in increased risk. Eliquis will suffice for DVT prophylaxis. 4. History of hyperthyroidism continue methimazole Primary Care Matt Wagner MD Discharge Diagnosis Influenza and Pneumonia S/P treatment A fib with RVR (1) Flu Status: Acute (2) Pneumonia Status: Acute (3) Respiratory acidosis Status: Acute (4) COPD (chronic obstructive pulmonary disease) Status: Chronic (5) Atrial fibrillation Status: Chronic Discharge Summary Discharge Physical Exam Allergies: Coded Allergies: clindamycin (Verified Allergy, Unknown, 04/25/16) Uncoded Allergies: CEYANE PEPPER (Allergy, Unknown, 04/25/16) ENDOMETHICIN (Allergy, Unknown, 04/25/16) Vitals & I&Os Vital Signs Date Time Temp Pulse Resp B/P (MAP) Pulse Ox O2 Delivery O2 Flow Rate FiO2 04/01/19 12:36 124 04/01/19 12:00 35.0 20 120/69 (86) 95 High Flow N/C 4.00 03/31/19 06:55 40 General Appearance: No Apparent Distress, WD/WN, Obese HEENT: PERRL/EOMI, Moist Mucous Membranes Respiratory: Chest Non Tender, No Accessory Muscle Use, No Respiratory Distress, Wheezing Cardiovascular: No Murmur, Irregularly Irregular Gastrointestinal: Normal Bowel Sounds, Non Tender, Soft; No Distended, No Guarding Extremity: Non Tender, No Calf Tenderness, Pedal Edema Skin: Normal Color, Warm/Dry Neurologic/Psychiatric: Alert, Oriented x3, Normal Mood/Affect Hospital Course Labs (last 24 hrs) Laboratory Tests 03/31/19 16:18: Glucometer 160H 03/31/19 20:24: Glucometer 182H 04/01/19 05:09: White Blood Count 8.4, Red Blood Count 5.40, Hemoglobin 15.6, Hematocrit 50, Mean Corpuscular Volume 92, Mean Corpuscular Hemoglobin 29, Mean Corpuscular Hemoglobin Concent 32, Red Cell Distribution Width 13.8, Platelet Count 233, Mean Platelet Volume 9.5, Neutrophils (%) (Auto) 70, Lymphocytes (%) (Auto) 20, Monocytes (%) (Auto) 9, Eosinophils (%) (Auto) 1, Basophils (%) (Auto) 0, Neutrophils # (Auto) 5.9, Lymphocytes # (Auto) 1.7, Monocytes # (Auto) 0.8, Eosinophils # (Auto) 0.1, Basophils # (Auto) 0.0, Sodium Level 142, Potassium Level 3.9, Chloride Level 98, Carbon Dioxide Level 35H, Anion Gap 9, Blood Urea Nitrogen 21H, Creatinine 0.97, Estimat Glomerular Filtration Rate > 60, BUN/Creatinine Ratio 22, Glucose Level 103, Calcium Level 8.0L, Phosphorus Level 3.4, Magnesium Level 2.2 04/01/19 11:15: Glucometer 121H Microbiology 03/25/19 Blood Culture - Final, Complete No growth Patient resulted labs reviewed. Pending Labs Laboratory Tests 04/01/19 11:15: Glucometer 121 Discussion & Recommendations Pt feeling well at this time. Denies weakness, faitgue, chills, malaise. He was able to ambulate with PT this morning. He has a cane at home for ambulation as well as home oxygen. Prescription for nebulizer machine and treatments sent Follow up with PCP in 1 week Discharge Home Medications: Active Scripts Active Diltiazem 24Hr ER (Diltiazem HCl) 240 Mg Cap.er.24h 480 Mg PO DAILY Metoprolol Succinate 100 Mg Tab.er.24h 200 Mg PO DAILY Digox (Digoxin) 125 Mcg Tablet 0.375 Mg PO DAILY Iprat-Albut 0.5-3(2.5) mg/3 ml (Ipratropium/Albuterol Sulfate) 3 Ml Ampul.neb 3 Ml INH RTQ6HR Reported Eliquis (Apixaban) 5 Mg Tablet 5 Mg PO BID LAST RECEIVED SOME SAMPLES 01-09-19 (2-3 WEEK SUPPLY MAYBE) Ocuvite Adult 50 Plus Softgel (C,E,Zinc,Copper 11/Ccjuj0f/Lut) 1 Each Capsule 1 Cap PO 1200 Krill Oil 1,000 mg Softgel (Krill/Om-3/Dha/Epa/Phospho/Ast) 1 Each Capsule 1,000 Mg PO 1200 Aspirin 81 Mg Tab.chew 81 Mg PO DAILY Vitamin B Complex 1 Each Capsule 1 Cap PO HS Cetirizine HCl 10 Mg Tablet 10 Mg PO DAILY Proair Hfa (Albuterol Sulfate) 1 Puff Puff 2 Puff IH QID PRN 1 PUFF = 90 MCG Methimazole 5 Mg Tablet 5 Mg PO DAILY Fluticasone Propionate 16 Gm Richardson.susp 2 Sprays NS DAILY Diltiazem 24Hr ER (Diltiazem HCl) 360 Mg Cap.er.24h 360 Mg PO DAILY Atorvastatin Calcium 40 Mg Tablet 40 Mg PO HS Metoprolol Succinate 50 Mg Tab.er.24h 50 Mg PO DAILY Instructions to patient/family Please see electronic discharge instructions given to patient. Clinical Quality Measures DVT/VTE Risk/Contraindication: Risk Factor Score Per Nursin RFS Level Per Nursing on Admit: 4+=Very High KRISTEN ORTIZ DO 04/02/19 0700: Discharge Summary Discharge Physical Exam Allergies: Coded Allergies: clindamycin (Verified Allergy, Unknown, 04/25/16) Uncoded Allergies: CEYANE PEPPER (Allergy, Unknown, 04/25/16) ENDOMETHICIN (Allergy, Unknown, 04/25/16) General Appearance: No Apparent Distress, WD/WN, Chronically ill Respiratory: Lungs Clear Neurologic/Psychiatric: Alert, Oriented x3, No Motor/Sensory Deficits, Normal Mood/Affect Hospital Course Was the Problem List Reviewed?: Yes Hospital Course: Pt had an uneventful hospital course for nine days after he was diagnosed with Influenza A, pneumonia and AF with RVR. Multiple meds were changed by cardiology and he already had O2 set up and he did need a nebulizer treatment machine and that was ordered and all meds were sent to [facility]. He was deemed stable for DC and did not require any therapy or home health. Discussion & Recommendations Discharge Planning: <30 minutes discharge planning Supervisory-Addendum Brief Verification & Attestation Participated in pt care: history, MDM, physical Personally performed: exam, history, MDM, supervision of care Care discussed with: Medical Student Procedures: n/a Results interpretation: Verified all documentation Verification and Attestation of Medical Student E/M Service A medical student performed and documented this service in my presence. I reviewed and verified all information documented by the medical student and made modifications to such information, when appropriate. I personally performed the physical exam and medical decision making. Kristen Ortiz, Apr 02, 2019,07:01 Problem Qualifiers (1) Pneumonia: Pneumonia type: due to influenza A virus Laterality: bilateral (2) COPD (chronic obstructive pulmonary disease): Qualified Codes: J44.9 - Chronic obstructive pulmonary disease, unspecified LICO BOWLES,RAMIREZ DEL REAL Apr 01, 2019 13:56 KRISTEN ORTIZ DO Apr 02, 2019 07:00
--- NOTE | 2019-04-01 14:23 | Occupational Therapy Eval ---
OT Evaluation-General/PLF Medical Diagnosis Admission Date Mar 24, 2019 at 08:08 Medical Diagnosis: influenza A/pneumonia/A-fib Onset Date: Mar 24, 2019 Therapy Diagnosis Therapy Diagnosis: Weakness Height/Weight Height (Feet): 6 Height (Inches): 0.00 Weight (Pounds): 325 Weight (Ounces): 0.0 Precautions Precautions/Isolations: Contact Isolation, Standard Precautions Safety Interventions: None Weight Bear Status Weight Bearing Restriction: Weight Bearing/Tolerated Referral Physician: Bri Referral Reason: Activity Tolerance, Self Care, Evaluation/Treatment, Strengthening/ROM Medical History Pertinent Medical History: Atrial Fib Current History Pt. came to hospital with influenza A and pneumonia Reviewed History: Yes Social History Home: Single Level Current Living Status: Alone Entry Into Home: Stairs With Railing Steps Into Home: 2 Pt. reports that his sister and niece help him with grocery shopping, etc. ADL-Prior Level of Function SCALE: Activities may be completed with or without assistive devices. 2-Ryxsxhepkm-wjucnnw completes the activity by him/herself with no assistance from a helper. 5-Set-up or Clean-up Assistance-helper sets up or cleans up; patient completes activity. [place] assists only prior to or following the activity. 4-Supervision or Touching Assistance-helper provides verbal cues and/or touchi ng/steadying and/or contact guard assistance as patient completes activity. Assistance may be provided throughout the activity or intermittently. 3-Partial/Moderate Assistance-helper does LESS THAN HALF the effort. [place] lifts, holds or supports trunk or limbs, but provides less than half the effort. 2-Substantial/Maximal Assistance-helper does MORE THAN HALF the effort. [place] lifts or holds trunk or limbs and provides more than half the effort. 2-Eaewkmmma-apmdye does ALL the effort. Patient does none of the effort to complete the activity. Or, the assistance of 2 or more helpers is required for the patient to complete the activity. If activity was not attempted, code reason: 7-Patient Refused. 9-Not Applicable-not attempted and the patient did not perform the activity before the current illness, exacerbation or injury. 10-Not Attempted due to Environmental Limitations-(lack of equipment, weather restraints, etc.). 88-Not Attempted due to Medical Conditions or Safety Concerns. ADL PLOF Comments Pt. reports that he was independent with daily tasks. Self Care: Independent Functional Cognition: Independent DME/Equipment: Bath Chair, Tub/Shower DME/Equipment Comments Pt. uses a cane at home. Drive Self: Yes OT Current Status Subjective No pain reported. Appearance Pt. coming out of shower as OT entered room. Nursing set him up in shower. Pt. agrees to work with OT. Mental Status/Objective Patient Orientation: Person, Place, Time, Situation Attachments: Oxygen Current Hand Dominance: Right Upper Extremity ROM WFL Upper Extremity Strength WFL Pt. reports that he has a "bad" shoulder, but is able to fully range. ADL-Treatment Eating (QC): 6 (No issues reported.) Shower/Bathe Self (QC): 4 (Per pt., he was able to wash all parts in shower. Nursing set him up and provided supervision.) On/Off Footwear (QC): 6 (Pt. transferred to bed and able to bring feet up to him and don slipper socks.) OT and pt. talked about pt's abilities at this time. Pt. states that he has his home set up to increase his independence. Reports that he has a system at home for toileting, but OT did bring in and issue toilet tongs, and educate him as well. Pt. is able to stand with good balance, and transfer to bed side. Able to don slipper socks. Pt. declines for OT to bring in other ADL equipment to assist with independence. States that his issue is with breathing, and not mobility/ADLs. Pt. reports that he has support at home when needed. OT also issues pt. LH sponge to assist with LE bathing as needed. Pt. able to transfer self sit-supine independently. All needs met. No further OT needs warranted at this time. Education OT Patient Education: Correct positioning, Modified ADL techniques, Purpose of tx/functional activities, Reviewed precautions, Rehab process, Transfer techniques Teaching Recipient: Patient Teaching Methods: Demonstration, Discussion Response to Teaching: Verbalize Understanding, Return Demonstration OT Skilled Nursing Goals Research Laboratory Specialist Goals Time Frame: Apr 01, 2019 Additional Goals: 1-Demonstrate ADL Tasks, 2-Verbalize Understanding 1=Demonstrate adherence to instructed precautions during ADL tasks. 2=Patient will verbalize/demonstrate understanding of assistive devices/modifications for ADL. 3=Patient will improve strength/tolerance for activity to enable patient to perform ADL's. No further OT needs at this time. OT Education/Plan Problem List/Assessment Assessment: No Skilled OT Needs ID'd Discharge Recommendations Plan/Recommendations: Discharge/Goals Met Therapy Discharge Recommendati: Home & Family Treatment Plan/Plan of Care Treatment,Training & Education: Yes Plan of Care: ADL Retraining Treatment Duration: Apr 01, 2019 Frequency: 1 time per week Estimated Hrs Per Day: .25 hour per day Agreement: Yes Rehab Potential: Fair Time/GCodes Start Time: 10:55 Stop Time: 11:15 Total Time Billed (hr/min): 20 Billed Treatment Time 1, BIN ECHAVARRIA OT Apr 01, 2019 14:23
--- NOTE | 2019-04-01 15:25 | Pulmonary Progress Note ---
Subjective Time Seen by a Provider: 15:24 Sepsis Event Evaluation Height, Weight, BMI Height: 6'0.00" Weight: 325lbs. 0.0oz. 147.618151rc; 45.76 BMI Method:Stated Exam Exam Vital Signs Date Time Temp Pulse Resp B/P (MAP) Pulse Ox O2 Delivery O2 Flow Rate FiO2 04/01/19 12:36 124 04/01/19 12:00 35.0 84 20 120/69 (86) 95 High Flow N/C 4.00 04/01/19 09:00 High Flow N/C 4.00 04/01/19 08:00 35.8 100 16 131/79 (96) 100 High Flow N/C 4.00 04/01/19 06:42 107 04/01/19 04:00 36.0 104 20 131/82 (98) 94 High Flow N/C 4.00 04/01/19 01:00 109 04/01/19 00:00 36.5 90 18 129/78 (95) 94 High Flow N/C 4.00 4.00 03/31/19 21:00 High Flow N/C 4.00 03/31/19 20:00 36.3 84 18 107/71 (83) 94 High Flow N/C 4.00 03/31/19 19:55 94 High Flow N/C 4.00 03/31/19 19:00 128 03/31/19 16:00 35.9 97 18 107/74 (85) 93 High Flow N/C 4.00 03/31/19 15:36 94 High Flow N/C 4.00 I & O 04/01/19 07:00 Intake Total 1400 ml Balance 1400 ml Height & Weight Height: 6'0.00" Weight: 325lbs. 0.0oz. 147.385498eb; 45.76 BMI Method:Stated General Appearance: No Apparent Distress, WD/WN, Obese HEENT: PERRL/EOMI, Moist Mucous Membranes Respiratory: Chest Non Tender, No Accessory Muscle Use, No Respiratory Distress, Wheezing Cardiovascular: No Murmur, Irregularly Irregular Capillary Refill: Less Than 3 Seconds Gastrointestinal: non tender, soft Extremity: Non Tender, No Calf Tenderness, Pedal Edema Neurologic/Psychiatric: Alert, Oriented x3, Normal Mood/Affect Skin: Normal Color, Warm/Dry Results Lab Laboratory Tests 03/31/19 03:15 04/01/19 05:09 Assessment/Plan Assessment/Plan pneumonia and influenza -- improving -Oxygen -Will give lasix x 1 secondary to BNP and CXR Agitation/anxiety - risperadol Influenza A -Tamiflu Afib rvr `-Cardizem gtt -Eliquis -Cardiology following Hx of hyperthyroid -Methimazole HELEN DO DO Apr 01, 2019 15:25
== END 2019-04-01 16:15 | disposition home or self-care (01) | DRG 193 ==
LOC: ICU 08:08 → 4TH 03-31 12:30
PROVIDERS: ADMIT Internal Medicine; ATTEND Internal Medicine
DX: J10.01 Influenza due to other identified influenza virus with the same other identified influenza virus pneumonia (principal); J96.02 Acute respiratory failure with hypercapnia; J44.1 Chronic obstructive pulmonary disease with (acute) exacerbation; E87.2 Acidosis; I48.20 Chronic atrial fibrillation, unspecified; I50.42 Chronic combined systolic (congestive) and diastolic (congestive) heart failure; I42.9 Cardiomyopathy, unspecified; Z68.42 Body mass index [BMI] 45.0-49.9, adult; E05.90 Thyrotoxicosis, unspecified without thyrotoxic crisis or storm; F41.9 Anxiety disorder, unspecified; F29 Unspecified psychosis not due to a substance or known physiological condition; E87.5 Hyperkalemia; M19.91 Primary osteoarthritis, unspecified site; E66.9 Obesity, unspecified; I25.10 Atherosclerotic heart disease of native coronary artery without angina pectoris; G47.33 Obstructive sleep apnea (adult) (pediatric); M75.101 Unspecified rotator cuff tear or rupture of right shoulder, not specified as traumatic; J45.909 Unspecified asthma, uncomplicated; Z87.891 Personal history of nicotine dependence; Z79.01 Long term (current) use of anticoagulants; Z79.82 Long term (current) use of aspirin; Z85.51 Personal history of malignant neoplasm of bladder; Z91.19 Patient's noncompliance with other medical treatment and regimen
CPT/HCPCS: 36415; 36569; 71045; 76937; 80048; 80053; 80162; 80306; 81000; 82805; 82962; 83605; 83735; 83880; 84100; 84439; 84443; 84481; 85007; 85025; 85027; 87040; 93306; 94640; 94660; 94760

== ENCOUNTER → 2019-04-15 | Outpatient (CLI) | payer MEDICARE, MEDICAID ==
[~2019-04-15] MED LIST changes: +ATOR40TA70 PO; +C,E,1CAP PO; +CETI10TA17 PO; +DIGO125T18 PO; +DILT240C91 PO; +DILT360C36 PO; +FLUT16SP22 NS; +IPRA3AMP31 INH; +KRIL1CAP18 PO; +METH5TAB5 PO; +MTP100TCR PO; +VITA1CAP PO
[2019-04-15 12:24] LABS: BUN/CREATININE RATIO 12; CALCIUM 9.5 MG/DL (8.5-10.1); CARBON DIOXIDE 30 MMOL/L (21-32); CHLORIDE 101 MMOL/L (98-107); CREATININE SERUM 0.99 MG/DL (0.60-1.30); GFR ESTIMATED > 60; GLUCOSE 122 MG/DL (70-105); MAGNESIUM 1.8 MG/DL (1.6-2.4); POTASSIUM 4.2 MMOL/L (3.6-5.0); SODIUM 140 MMOL/L (135-145)
== END ==
LOC: LAB 11:31
PROVIDERS: ATTEND Nurse Practitioner Family
DX: I10 Essential (primary) hypertension (principal); I48.0 Paroxysmal atrial fibrillation; I42.0 Dilated cardiomyopathy; G47.33 Obstructive sleep apnea (adult) (pediatric)
CPT/HCPCS: 36415; 80048; 80162; 83735; 84443

== ENCOUNTER 2019-04-30 10:48 | Day surgery (SDC) | payer MEDICARE, MEDICAID ==
[~2019-04-30] VITALS: Ht 182.9 cm; Wt 153.0 kg
[2019-04-30] MEDS ORDERED: NS IV 1000 ML 1,000 ML ONE (10:52)
[2019-04-30 11:08] VITALS: BP 149/87
[2019-04-30] MEDS ORDERED: DILT240C91 PO (11:25)
[2019-04-30] MEDS ORDERED: DIGO250T3 PO (11:25)
[2019-04-30 11:27] LABS: HEMOGLOBIN 14.3 G/DL (13.3-17.7); MEAN PLATELET VOLUME 9.8 FL (7.4-10.4); RED CELL DISTRIBUTION WIDTH 14.7 % (10.0-14.5); WHITE BLOOD COUNT 9.2 10^3/uL (4.3-11.0)
[2019-04-30] MEDS ORDERED: NS IV 1000 ML 1,000 ML IV SCH (11:30)
[2019-04-30] MEDS ORDERED: fentaNYL INJECTION 100 MCG/2 ML AMP IV ONE (11:30)
[2019-04-30] MEDS ORDERED: MIDAZOLAM 5 MG/5 ML (VERSED) VIAL IV ONE (11:30)
[2019-04-30 11:34] LABS: PROTHROMBIN TIME PATIENT 14.1 SEC (12.2-14.7)
[2019-04-30 11:40] LABS: ALANINE AMINOTRANSFERASE 27 U/L (0-55); ALBUMIN 4.1 GM/DL (3.2-4.5); ALKALINE PHOSPHATASE 104 U/L (40-136); BILIRUBIN,TOTAL 0.6 MG/DL (0.1-1.0); BUN/CREATININE RATIO 14; CALCIUM 9.7 MG/DL (8.5-10.1); CARBON DIOXIDE 29 MMOL/L (21-32); CHLORIDE 101 MMOL/L (98-107); CHOLESTEROL 174 MG/DL (< 200); CREATININE SERUM 1.04 MG/DL (0.60-1.30); GFR ESTIMATED > 60; GLUCOSE 126 MG/DL (70-105); HDL CHOLESTEROL 45 MG/DL (40-60); POTASSIUM 4.3 MMOL/L (3.6-5.0); SODIUM 142 MMOL/L (135-145); TOTAL PROTEIN 7.5 GM/DL (6.4-8.2); TRIGLYCERIDES 217 MG/DL (<150); VLDL CHOLESTEROL 43 MG/DL (5-40)
[2019-04-30] MEDS ORDERED: fentaNYL INJECTION 100 MCG/2 ML AMP ONE (12:08)
[2019-04-30] MEDS ORDERED: proPOfol 200 MG/20 ML (DIPRIVAN) VIAL IV ONE (12:08)
[2019-04-30] MEDS ORDERED: MIDAZOLAM 5 MG/5 ML (VERSED) VIAL ONE (12:08)
[2019-04-30 13:04] VITALS: BP 151/89
[2019-04-30 13:15] VITALS: BP 159/98
[2019-04-30 13:22] VITALS: BP 158/75
--- NOTE | 2019-04-30 13:24 | Anesthesia-General Post-Op ---
MAC Patient Condition Mental Status/LOC: Same as Preop Cardiovascular: Satisfactory Nausea/Vomiting: Absent Respiratory: Satisfactory Pain: Controlled Complications: Absent Post Op Complications Complications None Follow Up Care/Instructions Patient Instructions None needed. Anesthesiology Discharge Order Discharge Order Patient is doing well, no complaints, stable vital signs, no apparent adverse anesthesia problems. No complications reported per nursing. RICHARD RAY CRNA Apr 30, 2019 13:24
[2019-04-30 13:40] VITALS: BP 152/68
[2019-04-30 14:00] VITALS: BP 137/67
--- NOTE | 2019-04-30 18:46 | OPERATIVE REPORT ---
DATE OF SERVICE: 04/30/2019 PREOPERATIVE DIAGNOSIS: Persistent atrial fibrillation. POSTOPERATIVE DIAGNOSIS: Sinus rhythm. PROCEDURE PERFORMED: External electrical cardioversion. INDICATIONS: The patient is a 63-year-old man with persistent atrial fibrillation. He has been on apixaban without any interruption or gas for several months. Today, he comes in for external electrical cardioversion. Informed consent was obtained. The nurse career services coordinator delivered short acting anesthesia. 150 joules of synchronized shock was given through external patches, which restored sinus rhythm. He tolerated the procedure well. Job ID: [id number] DocumentID: [id number] Dictated Date: 04/30/2019 13:17:22 Chemistry Instructor Date: 04/30/2019 18:46:09 Dictated By: EVELIA CARMEN MD, MA, FACP, FACC, MTDD
--- OUTSIDE RECORDS SUMMARY | 2019-05-02 12:57 | XMS REPORT ---
Author Author Brigido Celestin Doctor Organization [facility] Address Unknown Phone Unavailable Care Team Providers Care Tax Associate Name Role Phone Migration, Doctor Unavailable Unavailable PROBLEMS Type Condition ICD9-CM Code [id number] Code Onset Dates Condition S tatus SNOMED Code Problem Mixed hyperlipidemia E78.2 Active 003285822 Problem Obstructive sleep apnea (adult) (pediatric) 327.23 Active 88906268 Problem Poor vision H54.7 Active 18212725 3 Problem Arthritis M19.90 Active 2782460 Problem Reactive depression F32.9 Active 83861575 Problem Incomplete tear of right rotator cuff M75.111 Active 7914470 Problem Atrial fibrillation I48.91 Active 46544754 Problem Thyroid nodule E04.1 Active 70699 5005 Problem Multinodular goiter E04.2 Active 747872056 Problem Onychomycosis B35.1 Active 152643 008 Problem 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 Active 705083972004584 Problem Chondromalacia patellae, left knee M22.42 Active 440018649840142 Problem Persistent atrial fibrillation I48.1 Active 472448541 Problem Neuropathy G62.9 Active 030325440 Problem CHF (congestive heart failure) I50.9 Active 71418875 Problem Other hammer toe(s) (acquired), left foot M20.42 Active 96817226 Problem Other hammer toe(s) (acquired), right foot M20.41 Active 292739040 ALLERGIES No Information ENCOUNTERS Encounter Location Date Diagnosis [facility] [place] [address] [id number] [place] [address] Apr, [facility] [place] [address] [id number] [place] [address] Jan, Onychomycosis B35.1 and Impaired circula tion I99.9 [facility] [place] [address] [id number] [place] [address] Nov, Chondromalacia patellae, left knee M22.4 [address] [place] [address] [address] Oct, Onychomycosis B35.1 ; Impaired circulati on I99.9 and Neuropathy G62.9 [place] [address] [address] Oct, [place] [address] [address] Sep, [place] [address] [address] Sep, [place] [address] [address] Aug, [place] [address] [address] Aug, [place] [address] [address] Aug, CHF (congestive heart failure) I50.9 ; S ebaceous cyst L72.3 and Morbid obesity E66.01 [place] [address] [address] Jul, Atrial fibrillation I48.91 [place] [address] [address] Jul, Onychomycosis B35.1 ; Neuropathy G62.9 ; Other hammer toe(s) (acquired), left foot M20.42 and Other hammer toe(s) (acquired), right foot M20.41 [place] [address] [address] June, [place] [address] [address] June, Atrial fibrillation I48.91 [place] [address] [address] May, Atrial fibrillation I48.91 [place] [address] [address] Apr, Thrush B37.0 and Morbid obesity E66.01 [place] [address] [address] 04 Mar, 2018 Atrial fibrillation I48.91 and CHF (blanca estive heart failure) I50.9 [place] [address] [address] 18 Feb, 2018 Atrial fibrillation I48.91 and CHF (blanca estive heart failure) I50.9 [place] [address] [address] Feb, [place] [address] [address] Jan, Onychomycosis B35.1 and Neuropathy G62.[address] [address] Dec, Tear of medial meniscus of left knee, cu rrent, unspecified tear type, subsequent encounter S83.242D [place] [address] [address] Nov, [address] [address] Nov, [place] [address] [address] Nov, Allergic reaction, initial encounter T78 .40XA and BMI 40.0-44.9, adult Z68.41 [place] [address] [address] 02 Nov, [address] [address] Sep, Acute combined systolic (congestive) 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 and BMI 40.0-44.9, adult Z68.[address] [address] Aug, Cough R05 and Acute combined systolic (c ongestive) 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 [place] [address] [address] June, Multinodular goiter E04.2 [facility] [place] [address] [address] June, Thyroid nodule E04.1 [place] [address] [address] May, [place] [address] [address] May, Abnormal TSH R94.6 [facility] [id number] [place] [id number] May, Dental examination Z01.20 [place] [address] [address] Apr, Atrial fibrillation I48.91 [place] [address] [address] Apr, [place] [address] [address] Apr, Pain of left breast N64.4 and Encounter for immunization Z23 [place] [address] [address] Mar, Abnormal TSH R94.6 and Acute combined sy stolic (congestive) 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 [place] [address] [address] Mar, [place] [address] [address] Feb, [place] [address] [address] Feb, Persistent atrial fibrillation I48.1 and Reactive depression F32.9 [place] [address] [address] Feb, [facility] [place] [address] [address] Feb, [facility] [place] [address] [address] Jan, [facility] [place] [address] [address] Jan, Tear of medial meniscus of left knee, cu rrent, unspecified tear type, subsequent encounter S83.242D [place] [address] [address] Dec, [place] [address] [address] Dec, [place] [address] [address] Dec, [place] [address] [address] Nov, Shortness of breath R06.02 and Acute rig ht-sided thoracic back pain M54.6 [place] [address] [address] Nov, Incomplete tear of right rotator cuff M7 5.111 and Tear of medial meniscus of left knee, current, unspecified tear type, subsequent encounter S83.242D [place] [address] [address] Oct, Osteoarthritis of left knee, unspecified osteoarthritis type M17.12 [place] [address] [address] Sep, Pain in right shoulder M25.511 [place] [address] [address] Sep, Pain in right shoulder M25.511 and Poor vision H54.7 [place] [address] [address] Sep, [place] [address] [address] Sep, Arthritis M19.90 and Poor vision H54.7 [facility] [address] [id number] Aug, Dental caries K02.9 [facility] [address] [id number] Jul, Dental examination Z01.20 [facility] [place] [address] [address] Jul, [facility] [place] [address] [address] Jul, [facility] [address] [id number] June, Dental examination Z01.20 [facility] [address] [id number] June, Dental caries K02.9 [facility] [address] [id number] May, Dental examination Z01.20 [facility] [place] [address] [address] May, [facility] [place] [address] [address] May, Bronchospasm J98.01 [facility] [place] [address] [address] Apr, Bronchospasm J98.01 [facility] [place] [address] [address] Apr, [facility] [place] [address] [address] Apr, Acute non-recurrent maxillary sinusitis J01.00 and Viral syndrome B34.9 [facility] [place] [address] [address] Apr, [facility] [place] [address] [address] Feb, Impingement syndrome of right shoulder M 75.41 and Adhesive capsulitis of right shoulder M75.01 [facility] [place] [id number] [place] [address] Dec, Impingement syndrome of right shoulder M 75.41 and Adhesive capsulitis of right shoulder M75.01 [facility] [place] [address] [address] Nov, [facility] [place] [address] [address] Oct, [facility] [place] [address] [address] 22 Oct, 2015 Impingement syndrome of right shoulder M 75.41 [facility] [place] [address] [address] 13 Oct, 2015 [facility] [place] [address] [address] Aug, Impingement syndrome of right shoulder M 75.41 [facility] [address] [facility] [id number] [place] [address] Aug, Oral candidiasis B37.0 [facility] [place] [address] [address] Jul, Arthritis M19.90 [facility] [place] [address] [address] Jul, [facility] [place] [address] [address] June, Arthritis M19.90 and Mixed hyperlipidemi a E78.2 [facility] [place] [address] [address] Apr, Lumbar strain S39.012A [facility] [address] [id number] Jan, Encounter for dental examination Z01.20 and Dental caries K02.9 [facility] [address] [id number] Jan, Encounter for dental examination Z01.20 and Dental examination Z01.20 [facility] [address] [id number] [place] [id number] June, Dental examination V72.2 [facility] [address] [id number] [place] [id number] June, Dental examination V72.2 [facility] [address] [id number] [place] [address] May, [facility] [address] [id number] [place] [address] May, [facility] [address] [id number] [place] [address] Oct, [facility] [address] [id number] [place] [address] Oct, [facility] [address] [id number] [place] [address] Oct, [facility] [address] [id number] [place] [address] Oct, [facility] [address] [id number] [place] [address] Sep, [facility] [address] [id number] [place] [address] Sep, [facility] [address] [id number] [place] [address] Aug, [facility] [address] [id number] [place] [address] Aug, [facility] [address] [id number] [place] [address] Aug, [facility] [address] [id number] [place] [address] Aug[facility] [address] [id number] [place] [address] Aug, [facility] [address] [id number] [place] [address] Aug, [facility] [address] [id number] [place] [address] June, [facility] [address] [id number] [place] [address] June, [facility] [address] [id number] [place] [address] Jan, [facility] [address] [id number] [place] [address] Jan, [facility] [address] [id number] [place] [address] Oct, [facility] [address] [id number] [place] [address] Oct, [facility] [address] [id number] [place] [address] May, [facility] [address] [id number] [place] [address] Mar, [facility] [address] [id number] [place] [address] Nov, [facility] [address] [id number] [place] [address] Oct, [facility] [address] [id number] [place] [address] Aug, [facility] [address] [id number] [place] [address] Aug, [facility] [address] [id number] [place] [address] Aug, [facility] [address] [id number] [place] [address] Aug, [facility] [id number] [place] [address] Aug, [facility] [address] [id number] [place] [address] Aug, [facility] [address] [id number] [place] [address] Jul, [facility] [place] [address] [id number] [place] [address] Jul, [facility] [place] [address] [id number] [place] [address] Jul, [facility] [place] [address] [id number] [place] [address] Jul, [facility] [place] [id number] [place] [address] Jul, [facility] [place] [id number] [place] [address] June, [facility] [place] [id number] [place] [address] June, [facility] [place] [address] [id number] [place] [address] June, [facility] [place] [address] [id number] [place] [address] June, [facility] [place] [address] [id number] [place] [address] June, IMMUNIZATIONS No Known Immunizations SOCIAL HISTORY Never Assessed REASON FOR VISIT PLAN OF CARE VITAL SIGNS Height 74 in 2013-08-20 Weight 274.5 lbs 2013-08-20 Temperature 97.9 degrees Fahrenheit 2013-08-20 Heart Rate 92 bpm 2013-08-20 Respiratory Rate 20 2013-08-20 Blood pressure systolic 130 mmHg 2013-08-20 Blood pressure diastolic 66 mmHg 2013-08-20 MEDICATIONS Unknown Medications RESULTS No Results PROCEDURES Procedure Date Ordered Result Body Site DRAIN/INJECT, JOINT/BURSA August 20, 2013 INSTRUCTIONS MEDICATIONS ADMINISTERED No Known Medications MEDICAL (GENERAL) HISTORY Type Description Date Medical History heart murmur Medical History cancer-bladder Medical History asthma Medical History bronchitis Medical History biopsy on thyroid Surgical History Cancer was removed from bladder 2009 Surgical History biopsy on thyroid 07/2018 Hospitalization History Pneumonia 196 Hospitalization History Heart Attack 2017
--- OUTSIDE RECORDS SUMMARY | 2019-05-02 12:57 | XMS REPORT ---
Author Author Brigido FRANK Organization [facility] Address [address] [place] [address] Care Team Providers Care Assistant Accounting Manager Name Role Phone VICK FRANK Unavailable PROBLEMS Type Condition ICD9-CM Code WGM89-YL Code Onset Dates Condition S tatus SNOMED Code Problem Obstructive sleep apnea (adult) (pediatric) 327.23 Active 32117274 Problem Mixed hyperlipidemia E78.2 Active 348086503 Problem Arthritis M19.90 Active 0952006 Problem Incomplete tear of right rotator cuff M75.111 Active 0390618 Problem Poor vision H54.7 Active 06491835 3 Problem 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 Active 780292933656804 Problem Atrial fibrillation I48.91 Active 09493827 Problem Thyroid nodule E04.1 Active 99085 5005 Problem Other hammer toe(s) (acquired), right foot M20.41 Active 832049564 Problem Persistent atrial fibrillation I48.1 Active 206911266 Problem Onychomycosis B35.1 Active 277568 008 Problem Reactive depression F32.9 Active 24558746 Problem Multinodular goiter E04.2 Active 967085776 Problem Neuropathy G62.9 Active 786976975 Problem CHF (congestive heart failure) I50.9 Active 13837985 Problem Other hammer toe(s) (acquired), left foot M20.42 Active 24752431 ALLERGIES Substance Reaction Event Type Date Status Indomethacin Unknown Drug Allergy Apr, Active Clindamycin HCl Unknown Drug Allergy Apr, Active Cayenne Pepper Tongue Swelling Drug Allergy Apr, Active Singulair tongue swelling Drug Allergy Apr, Active ENCOUNTERS Encounter Location Date Diagnosis [facility] [address] [facility] [id number] [address] [place] [phone] Jan, [facility] [address] [facility] [id number] [address] [place] [address] Nov, [facility] [address] [facility] [id number] [address] [place] [id number] Oct, Onychomycosis B35.1 ; Impair ed circulation I99.9 and Neuropathy G62.9 [facility] [address] [facility] [id number] [address] [place] [address] Oct, [facility] [address] [facility] [id number] [address] [place] [address] Sep, [facility] [address] [facility] [id number] [address] [place] [address] Sep, [facility] [address] [facility] [id number] [address] [place] [address] Aug, [facility] [address] [facility] [id number] [address] [place] [address] Aug, [facility] [address] [facility] [id number] [address] [place] [address] Aug, CHF (congestive heart failur e) I50.9 ; Sebaceous cyst L72.3 and Morbid obesity E66.01 [facility] [address] [facility] [id number] [address] [place] [address] Jul, Atrial fibrillation I48.91 [facility] [address] [facility] [id number] [address] [place] [address] Jul, Onychomycosis B35.1 ; Neurop athy G62.9 ; Other hammer toe(s) (acquired), left foot M20.42 and Other hammer toe(s) (acquired), right foot M20.41 [facility] [address] [facility] [id number] [address] [place] [address] June, [facility] [address] [facility] [id number] [address] [place] [address] June, Atrial fibrillation I48.91 [facility] [address] [facility] [id number] [address] [place] [address] May, Atrial fibrillation I48.91 [place] [address] [place] [id number] [address] [place] [address] Apr, Thrush B37.0 and Morbid obes ity E66.01 [place] [address] [place] [id number] [address] [place] [id number] 04 Mar, 2018 Atrial fibrillation I48.91 a nd CHF (congestive heart failure) I50.9 [place] [address] [place] [id number] [place] [address] Feb, Atrial fibrillation I48.91 a nd CHF (congestive heart failure) I50.9 [place] [address] [address] Feb, [place] [address] [address] Jan, Onychomycosis B35.1 and Neur opathy G62.9 [place] [address] [place] [id number] [place] [address] Dec, Tear of medial meniscus of l eft knee, current, unspecified tear type, subsequent encounter S83.242D [place] [address] [place] [id number] [address] [place] [address] Nov, [place] [address] [address] Nov, [place] [address] [address] Nov, Allergic reaction, initial e ncounter T78.40XA and BMI 40.0-44.9, adult Z68.41 [place] [address] [place] [id number] [address] [place] [address] Nov, [place] [address] [place] [id number] [address] [place] [address] Sep, 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 and BMI 40.0-44.9, adult Z68.41 [facility] [address] [facility] [id number] [address] [place] [address] Aug, Cough R05 and Acute combined systolic (congestive) 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 [facility] [address] [place] [id number] [place] [address] June, Multinodular goiter E04.2 [facility] [address] [place] [id number] [place] [address] June, Thyroid nodule E04.1 [place] [address] [place] [id number] [place] [address] May, [place] [address] [place] [id number] [place] [address] May, Abnormal TSH R94.6 [facility] [address] [id number] May, Dental examination Z01.20 [facility] [address] [place] [id number] [place] [address] Apr, Atrial fibrillation I48.91 [place] [address] [address] Apr, [place] [address] [place] [id number] [place] [address] Apr, Pain of left breast N64.4 an d Encounter for immunization Z23 [facility] [address] [place] [id number] [place] [address] Mar, Abnormal TSH R94.6 and Acute combined systolic (congestive) 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 [facility] [address] [place] [id number] [address] [place] [address] Mar, [facility] [address] [place] [id number] [place] [address] Feb, [place] [address] [id number] [address] [place] [address] Feb, Persistent atrial fibrillati on I48.1 and Reactive depression F32.9 [place] [address] [id number] [address] [place] [address] Feb, [place] [address] [facility] [id number] [address] [place] [address] Feb, [place] [address] [facility] [id number] [address] [place] [address] Jan, [place] [address] [id number] [address] [place] [address] Jan, Tear of medial meniscus of l eft knee, current, unspecified tear type, subsequent encounter S83.242D [place] [address] [place] [id number] [address] [place] [address] Dec, [place] [address] [place] [id number] [address] [place] [address] Dec, [place] [address] [place] [id number] [address] [place] [address] Dec, [place] [address] [place] [id number] [address] [place] [address] Nov, Shortness of breath R06.02 a nd Acute right-sided thoracic back pain M54.6 [place] [address] [facility] [id number] [address] [place] [address] Nov, Incomplete tear of right rot ator cuff M75.111 and Tear of medial meniscus of left knee, current, unspecified tear type, subsequent encounter S83.242D [place] [address] [facility] [id number] [address] [place] [address] Oct, Osteoarthritis of left knee, unspecified osteoarthritis type M17.12 [place] [address] [place] [id number] [address] [place] [address] Sep, Pain in right shoulder M25.5 11 [facility] [address] [id number] [address] [place] [id number] 17 Sep, 2016 Pain in right shoulder M25.5 11 and Poor vision H54.7 [facility] [address] [id number] [address] [place] [address] Sep, [facility] [address] [id number] [address] [place] [address] Sep, Arthritis M19.90 and Poor vi javier H54.7 [facility] [address] [id number] [address] [place] [address] [id number] Aug, Dental caries K02.9 [facility] [address] [id number] [address] [place] [address] [id number] Jul, Dental examination Z01.20 [facility] [address] [id number] [address] [place] [address] Jul, [facility] [address] [id number] [address] [place] [address] Jul, [facility] [address] [id number] [address] [place] [address] [id number] June, Dental examination Z01.20 [facility] [address] [id number] [address] [place] [address] [id number] June, Dental caries K02.9 [facility] [address] [id number] [address] [place] [address] [id number] May, Dental examination Z01.20 [facility] [address] [id number] [address] [place] [address] May, [facility] [address] [id number] [address] [place] [address] May, Bronchospasm J98.01 [facility] [address] [id number] [address] [place] [address] Apr, Bronchospasm J98.01 [facility] [address] [id number] [address] [place] [address] 07 Apr, 2016 [facility] [address] [id number] [address] [place] [address] Apr, Acute non-recurrent maxillar y sinusitis J01.00 and Viral syndrome B34.9 [facility] [address] [id number] [address] [place] [address] Apr, [facility] [address] [id number] [address] [place] [address] Feb, Impingement syndrome of righ t shoulder M75.41 and Adhesive capsulitis of right shoulder M75.01 [facility] [address] [id number] [address] [place] [address] Dec, Impingement syndrome of righ t shoulder M75.41 and Adhesive capsulitis of right shoulder M75.01 [facility] [address] [id number] [address] [place] [address] Nov, [facility] [address] [id number] [address] [place] [address] Oct, [facility] [address] [id number] [address] [place] [address] Oct, Impingement syndrome of righ t shoulder M75.41 [facility] [address] [id number] [address] [place] [phone] Oct, [facility] [address] [id number] [address] [place] [phone] Aug, Impingement syndrome of righ t shoulder M75.41 [facility] [address] [id number] [address] [place] [address] Aug, Oral candidiasis B37.0 [facility] [address] [id number] [address] [place] [address] Jul, Arthritis M19.90 [facility] [address] [id number] [address] [place] [address] Jul, [facility] [address] [id number] [address] [place] [address] June, Arthritis M19.90 and Mixed h yperlipidemia E78.2 [facility] [address] [id number] [address] [place] [address] Apr, Lumbar strain S39.012A [facility] [address] [id number] [address] [place] [address] [id number] Jan, Encounter for dental examina tion Z01.20 and Dental caries K02.9 [facility] [address] [id number] [address] [place] [address] [id number] Jan, Encounter for dental examina tion Z01.20 and Dental examination Z01.20 [facility] [address] [id number] [address] [place] [address] [id number] June, Dental examination V72.2 [facility] [address] [id number] [address] [place] [address] [id number] June, Dental examination V72.2 [facility] [address] [id number] [address] [place] [id number] May, [facility] [address] [id number] [address] [place] [phone] May, [facility] [address] [id number] [address] [place] [phone] Oct, [facility] [address] [id number] [address] [place] [address] Oct, [facility] [address] [id number] [address] [place] [phone] Oct, [facility] [address] [id number] [address] [place] [phone] Oct, [facility] [address] [id number] [address] [place] [phone] Sep, [facility] [address] [id number] [address] [place] [phone] Sep, [facility] [address] [id number] [address] [place] [address], [place] [address] Aug, [facility] [address] [id number] [address] [place] [address], [place] [address] Aug, [facility] [address] [id number] [address] [place] [address], [place] [address] Aug, [facility] [address] [id number] [address] [place] [address], [place] [address] Aug, [facility] [address] [id number] [address] [place] [address], [place] [address] Aug, [facility] [address] [id number] [address] [place] [address], [place] [address] Aug, [facility] [address] [id number] [address] [place] [address], [place] [address] June, [facility] [address] [id number] [address] [place] [address], [place] [address] June, [facility] [address] [id number] [address] [place] [address], [place] [address] Jan, [facility] [address] [id number] [address] [place] [address], [place] [address] Jan, [facility] [address] [id number] [address] [place] [address], [place] [address] Oct, [facility] [address] [id number] [address] [place] [address], [place] [address] Oct, [facility] [address] [id number] [address] [place] [address], [place] [address] May, [facility] [address] [id number] [address] [place] [address], [place] [address] Mar, [facility] [address] [id number] [address] [place] [address], [place] [address] Nov, [facility] [address] [id number] [address] [place] [address] 18 Oct, 2011 [facility] [address] [id number] [address] [place] [address], [place] [address] Aug, [facility] [address] [id number] [address] [place] [address], [place] [address] Aug, [facility] [address] [id number] [address] [place] [address], [place] [address] Aug, [facility] [address] [id number] [address] [place] [address], [place] [address] Aug, [facility] [address] [id number] [address] [place] [address], [place] [address] Aug, [facility] [address] [id number] [address] [place] [address], [place] [address] Aug, [facility] [address] [id number] [address] [place] [address], [place] [address] Jul, [facility] [address] [id number] [address] [place] [address], [place] [address] Jul, [facility] [address] [id number] [address] [place] [address], [place] [address] Jul, [facility] [address] [id number] [address] [place] [address], [place] [address] Jul, [facility] [address] [id number] [address] [place] [address], [place] [address] Jul, [facility] [address] [id number] [address] [place] [address], [place] [address] June, [facility] [address] [id number] [address] [place] [address], [place] [address] June, [facility] [address] [id number] [address] [place] [address], [place] [address] June, [facility] [address] [id number] [address] [place] [address], [place] [address] June, [facility] [address] [facility] [id number] [address] [place] [address] June, IMMUNIZATIONS No Known Immunizations SOCIAL HISTORY Never Assessed REASON FOR VISIT poss thrush- x6days - swollen - no pain - kpage ma PLAN OF CARE Activity Details Follow Up Regular appt Reason: VITAL SIGNS Height 74 in 2018-05-10 Weight 329.0 lbs 2018-05-10 Temperature 97.9 degrees Fahrenheit 2018-05-10 Heart Rate 119 bpm 2018-05-10 Respiratory Rate 20 2018-05-10 BMI 42.24 kg/m2 2018-05-10 Blood pressure systolic 126 mmHg 2018-05-10 Blood pressure diastolic 78 mmHg 2018-05-10 MEDICATIONS Medication Instructions Dosage Frequency Start Date End Date Duration S tatus Losartan Potassium 25 MG Orally Once a day 1 tablet 24h 30 Active Vitamin B Complex - as directed Active Proventil HFA 108 (90 Base) MCG/ACT Inhalation 4 times a day 2 p uffs as needed 6h Active Atorvastatin Calcium 40 mg by oral route Once a day 1 tablet 24h Active Oxygen Active Metoprolol Succinate ER 50 MG Orally Once a day 1 tablet 24h Active Flonase Active Aspirin 81 81 MG Orally Once a day 1 tablet 24h Active ZyrTEC Active Digoxin 250 MCG Orally Once a day 1 tablet 24h Active Furosemide 20 mg by oral route Once a day 1 tablet 24h Active Eliquis 5 mg Orally 2 times a day 1 tablet 12h Active Diflucan 100 MG Orally Once a day 1 tablet 24h Apr, 10 day(s) Active RESULTS No Results PROCEDURES No Known procedures INSTRUCTIONS MEDICATIONS ADMINISTERED No Known Medications MEDICAL (GENERAL) HISTORY Type Description Date Medical History heart murmur Medical History cancer-bladder Medical History asthma Medical History bronchitis Medical History biopsy on thyroid Surgical History Cancer was removed from bladder 2009 Surgical History biopsy on thyroid 07/2018 Hospitalization History Pneumonia 1961 Hospitalization History Heart Attack 2017
--- OUTSIDE RECORDS SUMMARY | 2019-05-02 12:57 | XMS REPORT ---
Author Author Brigido Celestin Doctor Organization [facility] Address Unknown Phone Unavailable Care Team Providers Care [employer] Operator Name Role Phone Migration, Doctor Unavailable Unavailable PROBLEMS Type Condition ICD9-CM Code WEM44-NA Code Onset Dates Condition S tatus SNOMED Code Problem Mixed hyperlipidemia E78.2 Active 689882658 Problem Obstructive sleep apnea (adult) (pediatric) 327.23 Active 84188333 Problem Poor vision H54.7 Active 09547986 3 Problem Arthritis M19.90 Active 1182959 Problem Reactive depression F32.9 Active 50087651 Problem Incomplete tear of right rotator cuff M75.111 Active 2522817 Problem Atrial fibrillation I48.91 Active 44916839 Problem Thyroid nodule E04.1 Active 74459 5005 Problem Multinodular goiter E04.2 Active 839563455 Problem Onychomycosis B35.1 Active 258330 008 Problem 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 Active 064270269228145 Problem Chondromalacia patellae, left knee M22.42 Active 764400193371126 Problem Persistent atrial fibrillation I48.1 Active 267895041 Problem Neuropathy G62.9 Active 059300299 Problem CHF (congestive heart failure) I50.9 Active 77128834 Problem Other hammer toe(s) (acquired), left foot M20.42 Active 76253784 Problem Other hammer toe(s) (acquired), right foot M20.41 Active [id number] ALLERGIES No Information ENCOUNTERS Encounter Location Date Diagnosis [facility] [address] [facility] [place] [address] Apr, [facility] [address] [facility] [place] [address] Jan, Onychomycosis B35.1 and Impaired circula tion I99.9 [facility] [address] [facility] [place] [address] Nov, Chondromalacia patellae, left knee M22.4 [address] [place] [address] [address] Oct, Onychomycosis B35.1 ; Impaired circulati on I99.9 and Neuropathy G62.9 [place] [address] [address] Oct, [place] [address] [address] Sep, [place] [address] [address] Sep, [place] [address] [address] Aug, [place] [address] [address] Aug, [place] [address] [address] Aug, CHF (congestive heart failure) I50.9 ; S ebaceous cyst L72.3 and Morbid obesity E66.01 [place] [address] [address] Jul, Atrial fibrillation I48.91 [place] [address] [address] Jul, Onychomycosis B35.1 ; Neuropathy G62.9 ; Other hammer toe(s) (acquired), left foot M20.42 and Other hammer toe(s) (acquired), right foot M20.41 [place] [address] [address] June, [place] [address] [address] June, Atrial fibrillation I48.91 [place] [address] [address] May, Atrial fibrillation I48.91 [place] [address] [address] Apr, Thrush B37.0 and Morbid obesity E66.01 [place] [address] [address] 04 Mar, 2018 Atrial fibrillation I48.91 and CHF (blanca estive heart failure) I50.9 [place] [address] [address] 18 Feb, 2018 Atrial fibrillation I48.91 and CHF (blanca estive heart failure) I50.9 [place] [address] [address] Feb, [place] [address] [address] Jan, Onychomycosis B35.1 and Neuropathy G62.[address] [address] Dec, Tear of medial meniscus of left knee, cu rrent, unspecified tear type, subsequent encounter S83.242D [place] [address] [address] Nov, [address] [address] Nov, [place] [address] [address] Nov, Allergic reaction, initial encounter T78 .40XA and BMI 40.0-44.9, adult Z68.41 [place] [address] [address] 02 Nov, [address] [address] Sep, Acute combined systolic (congestive) 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 and BMI 40.0-44.9, adult Z68.[address] [address] Aug, Cough R05 and Acute combined systolic (c ongestive) 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 [place] [address] [address] June, Multinodular goiter E04.2 [facility] [address] [address] June, Thyroid nodule E04.1 [place] [address] [address] May, [place] [address] [address] May, Abnormal TSH R94.6 [facility] [id number] [place] [id number] May, Dental examination Z01.20 [place] [address] [address] Apr, Atrial fibrillation I48.91 [place] [address] [address] Apr, [place] [address] [address] Apr, Pain of left breast N64.4 and Encounter for immunization Z23 [place] [address] [address] Mar, Abnormal TSH R94.6 and Acute combined sy stolic (congestive) 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 [place] [address] [address] Mar, [place] [address] [address] Feb, [place] [address] [address] Feb, Persistent atrial fibrillation I48.1 and Reactive depression F32.9 [place] [address] [address] Feb, [facility] [address] [address] Feb, [facility] [address] [address] Jan, [facility] [address] [address] Jan, Tear of medial meniscus of left knee, cu rrent, unspecified tear type, subsequent encounter S83.242D [place] [address] [address] Dec, [place] [address] [address] Dec, [place] [address] [address] Dec, [place] [address] [address] Nov, Shortness of breath R06.02 and Acute rig ht-sided thoracic back pain M54.6 [place] [address] [address] Nov, Incomplete tear of right rotator cuff M7 5.111 and Tear of medial meniscus of left knee, current, unspecified tear type, subsequent encounter S83.242D [place] [address] [address] Oct, Osteoarthritis of left knee, unspecified osteoarthritis type M17.12 [place] [address] [address] Sep, Pain in right shoulder M25.511 [place] [address] [address] Sep, Pain in right shoulder M25.511 and Poor vision H54.7 [place] [address] [address] Sep, [place] [address] [address] Sep, Arthritis M19.90 and Poor vision H54.7 [facility] [address] [id number] Aug, Dental caries K02.9 [facility] [address] [id number] Jul, Dental examination Z01.20 [facility] [address] [address] Jul, [facility] [address] [address] Jul, [facility] [address] [id number] June, Dental examination Z01.20 [facility] [address] [id number] June, Dental caries K02.9 [facility] [address] [id number] May, Dental examination Z01.20 [facility] [address] [address] May, [facility] [address] [address] May, Bronchospasm J98.01 [facility] [address] [address] Apr, Bronchospasm J98.01 [facility] [address] [address] Apr, [facility] [address] [address] Apr, Acute non-recurrent maxillary sinusitis J01.00 and Viral syndrome B34.9 [facility] [address] [address] Apr, [facility] [address] [address] Feb, Impingement syndrome of right shoulder M 75.41 and Adhesive capsulitis of right shoulder M75.01 [facility] [id number] [place] [address] Dec, Impingement syndrome of right shoulder M 75.41 and Adhesive capsulitis of right shoulder M75.01 [facility] [address] [address] Nov, [facility] [address] [address] Oct, [facility] [address] [address] 22 Oct, 2015 Impingement syndrome of right shoulder M 75.41 [facility] [address] [address] 13 Oct, 2015 [facility] [address] [address] Aug, Impingement syndrome of right shoulder M 75.41 [facility] [address] [facility] [id number] [place] [address] Aug, Oral candidiasis B37.0 [facility] [address] [address] Jul, Arthritis M19.90 [facility] [address] [address] Jul, [facility] [address] [address] June, Arthritis M19.90 and Mixed hyperlipidemi a E78.2 [facility] [address] [address] Apr, Lumbar strain S39.012A [facility] [address] [id number] Jan, Encounter for dental examination Z01.20 and Dental caries K02.9 [facility] [address] [id number] Jan, Encounter for dental examination Z01.20 and Dental examination Z01.20 [facility] [address] [id number] [place] [id number] June, Dental examination V72.2 [facility] [address] [id number] [place] [id number] June, Dental examination V72.2 [facility] [address] [facility] [place] [address] May, [facility] [address] [facility] [place] [address] May, [facility] [address] [facility] [place] [address] Oct, [facility] [address] [facility] [place] [address] Oct, [facility] [address] [facility] [place] [address] Oct, [facility] [address] [facility] [place] [address] Oct, [facility] [address] [facility] [place] [address] Sep, [facility] [address] [facility] [place] [address] Sep, [facility] [address] [facility] [place] [address] Aug, [facility] [address] [facility] [place] [address] Aug, [facility] [address] [facility] [place] [address] Aug, [facility] [address] [facility] [place] [address] Aug, [facility] [address] [facility] [place] [address] Aug, [facility] [address] [facility] [place] [address] Aug, [facility] [address] [facility] [place] [address] June, [facility] [address] [facility] [place] [address] June, [facility] [address] [id number] [place] [address] Jan, [facility] [address] [facility] [place] [address] Jan, [facility] [address] [facility] [place] [address] Oct, [facility] [address] [facility] [place] [address] Oct, [facility] [address] [facility] [place] [address] May, [facility] [address] [facility] [place] [address] Mar, [facility] [address] [facility] [place] [address] Nov, [facility] [address] [facility] [place] [address] Oct, [facility] [address] [facility] [place] [address] Aug, [facility] [address] [facility] [place] [address] Aug, [facility] [address] [facility] [place] [address] Aug, [facility] [address] [facility] [place] [address] Aug, [facility] [id number] [place] [address] Aug, [facility] [address] [facility] [place] [address] Aug, [facility] [address] [facility] [place] [address] Jul, [facility] [address] [facility] [place] [address] Jul, [facility] [address] [facility] [place] [address] Jul, [facility] [address] [facility] [place] [address] Jul, [facility] [id number] [place] [address] Jul, [facility] [id number] [place] [address] June, [facility] [id number] [place] [address] June, [facility] [address] [facility] [place] [address] June, [facility] [id number] [place] [address] June, [facility] [address] [facility] [place] [address] June, IMMUNIZATIONS No Known Immunizations SOCIAL HISTORY Never Assessed REASON FOR VISIT PLAN OF CARE VITAL SIGNS MEDICATIONS Unknown Medications RESULTS No Results PROCEDURES No Known procedures INSTRUCTIONS MEDICATIONS ADMINISTERED No Known Medications MEDICAL (GENERAL) HISTORY Type Description Date Medical History heart murmur Medical History cancer-bladder Medical History asthma Medical History bronchitis Medical History biopsy on thyroid Surgical History Cancer was removed from bladder 2009 Surgical History biopsy on thyroid 07/2018 Hospitalization History Pneumonia 1962 Hospitalization History Heart Attack 2018
--- OUTSIDE RECORDS SUMMARY | 2019-05-02 12:58 | XMS REPORT ---
Author Author Brigido Celestin Doctor Organization [facility] Address Unknown Phone Unavailable Care Team Providers Care Product Director Name Role Phone Migration, Doctor Unavailable Unavailable PROBLEMS Type Condition ICD9-CM Code SRA33-IW Code Onset Dates Condition S tatus SNOMED Code Problem Arthritis M19.90 Active 4481997 Problem Obstructive sleep apnea (adult) (pediatric) 327.23 Active 81753080 Problem Incomplete tear of right rotator cuff M75.111 Active 7809189 Problem Reactive depression F32.9 Active 40637431 Problem Persistent atrial fibrillation I48.1 Active 474966280 Problem Neuropathy G62.9 Active 840238061 Problem Poor vision H54.7 Active 99971022 3 Problem CHF (congestive heart failure) I50.9 Active 23369334 Problem Mixed hyperlipidemia E78.2 Active 712354267 Problem 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 Active 609376997706896 Problem Atrial fibrillation I48.91 Active 77034625 Problem Thyroid nodule E04.1 Active 58959 5005 Problem Multinodular goiter E04.2 Active 122849639 ALLERGIES No Information ENCOUNTERS Encounter Location Date Diagnosis [place] [address] [place] [id number] [address] [place] [address] Jul, [place] [address] [facility] [id number] [address] [place] [address] June, Atrial fibrillation I48.91 [place] [address] [facility] [id number] [address] [place] [address] May, Atrial fibrillation I48.91 [place] [address] [facility] [id number] [address] [place] [address] Apr, Thrush B37.0 and Morbid obes ity E66.01 [place] [address] [facility] [id number] [address] [place] [address] Mar, Atrial fibrillation I48.91 a nd CHF (congestive heart failure) I50.9 [place] [address] [address] Feb, Atrial fibrillation I48.91 a nd CHF (congestive heart failure) I50.9 [place] [address] [address] Feb, [place] [address] [address] Jan, Onychomycosis B35.1 and Neur opathy G62.9 [place] [address] [address] Dec, Tear of medial meniscus of l eft knee, current, unspecified tear type, subsequent encounter S83.242D [place] [address] [address] Nov, [place] [address] [address] Nov, [place] [address] [address] Nov, Allergic reaction, initial e ncounter T78.40XA and BMI 40.0-44.9, adult Z68.41 [place] [address] [address] 02 Nov, 2017 [place] [address] [address] Sep, 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 and BMI 40.0-44.9, adult Z68.41 [place] [address] [address] Aug, Cough R05 and Acute combined systolic (congestive) 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 [place] [address] [address] June, Multinodular goiter E04.2 [facility] [address] [facility] [id number] [address] [place] [address] June, Thyroid nodule E04.1 [facility] [address] [facility] [id number] [address] [place] [address] May, [facility] [address] [address] May, Abnormal TSH R94.6 [facility] [address] [id number] [address] [place] [address] [id number] May, 2017 Dental examination Z01.20 [place] [address] [address] Apr, Atrial fibrillation I48.91 [place] [address] [address] Apr, [facility] [address] [address] Apr, Pain of left breast N64.4 an d Encounter for immunization Z23 [place] [address] [address] Mar, Abnormal TSH R94.6 and Acute combined systolic (congestive) 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 [facility] [address] [place] [id number] [address] [place] [address] Mar, [facility] [address] [place] [id number] [address] [place] [address] Feb, [facility] [address] [address] Feb, Persistent atrial fibrillati on I48.1 and Reactive depression F32.9 [facility] [address] [place] [id number] [address] [place] [address] Feb, [facility] [address] [place] [address] Feb, [facility] [address] [id number] [address] [place] [address] Jan, [facility] [address] [id number] [address] [place] [address] Jan, Tear of medial meniscus of l eft knee, current, unspecified tear type, subsequent encounter S83.242D [facility] [address] [id number] [address] [place] [address] Dec, [facility] [address] [id number] [address] [place] [address] Dec, [facility] [address] [id number] [address] [place] [address] Dec, [facility] [address] [id number] [address] [place] [address] Nov, Shortness of breath R06.02 a nd Acute right-sided thoracic back pain M54.6 [facility] [address] [id number] [address] [place] [address] Nov, Incomplete tear of right rot ator cuff M75.111 and Tear of medial meniscus of left knee, current, unspecified tear type, subsequent encounter S83.242D [facility] [address] [id number] [address] [place] [address] Oct, Osteoarthritis of left knee, unspecified osteoarthritis type M17.12 [facility] [address] [id number] [address] [place] [address] Sep, Pain in right shoulder M25.[address] [facility] [address] [id number] [address] [place] [address] Sep, Pain in right shoulder M25.5 11 and Poor vision H54.7 [facility] [address] [id number] [address] [place] [address] Sep, [facility] [address] [id number] [address] [place] [address] Sep, Arthritis M19.90 and Poor vi javier H54.7 [facility] [address] [id number] [address] [place] [address] [id number] Aug, Dental caries K02.9 [facility] [address] [id number] [address] [place] [id number] Jul, Dental examination Z01.20 [facility] [address] [id number] [address] [place] [address] Jul, [facility] [address] [id number] [address] [place] [address] Jul, [facility] [address] [id number] [address] [place] [id number] June, Dental examination Z01.20 [facility] [address] [id number] [address] [place] [address] [id number] June, Dental caries K02.9 [facility] [address] [id number] [address] [place] [id number] May, Dental examination Z01.20 [facility] [address] [id number] [address] [place] [address] May, [facility] [address] [id number] [address] [place] [address] May, Bronchospasm J98.01 [facility] [address] [id number] [address] [place] [address] Apr, Bronchospasm J98.01 [facility] [address] [id number] [address] [place] [address] Apr, [facility] [address] [facility] [id number] [address] [place] [address] Apr, Acute non-recurrent maxillar y sinusitis J01.[address] syndrome B34.9 [facility] [address] [id number] [address] [place] [address] Apr, [facility] [address] [id number] [address] [place] [address] Feb, Impingement syndrome of righ t shoulder M75.41 and Adhesive capsulitis of right shoulder M75.01 [facility] [address] [id number] [address] [place] [address] Dec, Impingement syndrome of righ t shoulder M75.41 and Adhesive capsulitis of right shoulder M75.01 [facility] [address] [id number] [address] [place] [address] Nov, [facility] [address] [id number] [address] [place] [address] Oct, [facility] [address] [id number] [address] [place] [address] Oct, Impingement syndrome of righ t shoulder M75.41 [facility] [address] [id number] [address] [place] [address] Oct, [facility] [address] [id number] [address] [place] [address] Aug, Impingement syndrome of righ t shoulder M75.41 [facility] [address] [facility] [id number] [address] [place] [address] Aug, Oral candidiasis B37.0 [facility] [address] [facility] [id number] [address] [place] [address] Jul, Arthritis M19.90 [facility] [address] [id number] [address] [place] [address] Jul, [facility] [address] [facility] [id number] [address] [place] [address] June, Arthritis M19.90 and Mixed h yperlipidemia E78.2 [facility] [address] [facility] [id number] [address] [place] [address] Apr, Lumbar strain S39.012A [facility] [address] [id number] [address] [place] [address] [id number] Jan, Encounter for dental examina tion Z01.20 and Dental caries K02.9 [facility] [address] [id number] [address] [place] [address] [id number] Jan, Encounter for dental examina tion Z01.20 and Dental examination Z01.20 [facility] [address] [id number] [address] [place] [address] [id number] June, Dental examination V72.2 [facility] [address] [id number] [address] [place] [address] [id number] June, Dental examination V72.2 [facility] [address] [id number] [address] [place] [address] May, [facility] [address] [id number] [address] [place] [id number] May, [facility] [address] [id number] [address] [place] [address] Oct, [facility] [address] [id number] [address] [place] [id number] Oct, [facility] [address] [id number] [address] [place] [id number] Oct, [facility] [address] [id number] [address] [place] [address] Oct, [facility] [address] [id number] [address] [place] [id number] Sep, [facility] [address] [id number] [address] [place] [address] Sep, [facility] [address] [id number] [address] [place] [address] Aug, [facility] [address] [id number] [address] [place] [address] Aug, [facility] [address] [id number] [address] [place] [address] [place] [address] Aug, [facility] [address] [id number] [address] [place] [address], [place] [address] Aug, [facility] [address] [id number] [address] [place] [address], [place] [address] Aug, [facility] [address] [id number] [address] [place] [address], [place] [address] Aug, [facility] [address] [id number] [address] [place] [address], [place] [address] June, [facility] [address] [id number] [address] [place] [address], [place] [address] June, [facility] [address] [id number] [address] [place] [address], [place] [address] Jan, [facility] [address] [id number] [address] [place] [address], [place] [address] Jan, [facility] [address] [id number] [address] [place] [address], [place] [address] Oct, [facility] [address] [id number] [address] [place] [address], [place] [address] Oct, [facility] [address] [id number] [address] [place] [address], [place] [address] May, [facility] [address] [id number] [address] [place] [address], [place] [address] Mar, [facility] [address] [id number] [address] [place] [address], [place] [address] Nov, [facility] [address] [id number] [address] [place] [address], [place] [address] Oct, [facility] [address] [id number] [address] [place] [address], [place] [address] Aug, [facility] [address] [id number] [address] [place] [address], [place] [address] Aug, [facility] [address] [id number] [address] [place] [address] Aug, [facility] [address] [id number] [address] [place] [address] Aug, [facility] [address] [id number] [address] [place] [id number] 17 Aug, 2011 [facility] [address] [id number] [address] [place] [address] Aug, [facility] [address] [id number] [address] [place] [address] Jul, [facility] [address] [id number] [address] [place] [address] Jul, [facility] [address] [id number] [address] [place] [address] Jul, [facility] [address] [id number] [address] [place] [address] Jul, [facility] [address] [id number] [address] [place] [address] Jul, [facility] [address] [id number] [address] [place] [address] June, [facility] [address] [id number] [address] [place] [address] June, [facility] [address] [id number] [address] [place] [address] June, [facility] [address] [id number] [address] [place] [address] June, [facility] [address] [id number] [address] [place] [address] June, IMMUNIZATIONS No Known Immunizations SOCIAL HISTORY Never Assessed REASON FOR VISIT [place] [place] VITAL SIGNS MEDICATIONS Unknown Medications RESULTS No Results PROCEDURES No Known procedures INSTRUCTIONS MEDICATIONS ADMINISTERED No Known Medications MEDICAL (GENERAL) HISTORY Type Description Date Medical History heart murmur Medical History cancer-bladder Medical History asthma Medical History bronchitis Surgical History Cancer was removed from bladder 2009 Hospitalization History Pneumonia 1961 Hospitalization History Heart Attack 2017
--- OUTSIDE RECORDS SUMMARY | 2019-05-02 12:58 | XMS REPORT ---
Author Author Brigido Celestin Doctor Organization [facility] Address Unknown Phone Unavailable Care Team Providers Care Trend Investigator Name Role Phone Migration, Doctor Unavailable Unavailable PROBLEMS Type Condition ICD9-CM Code [id number] Code Onset Dates Condition S tatus SNOMED Code Problem Arthritis M19.90 Active 5849907 Problem Obstructive sleep apnea (adult) (pediatric) 327.23 Active 68903047 Problem Poor vision H54.7 Active 99988281 3 Problem Mixed hyperlipidemia E78.2 Active 647333547 Problem Persistent atrial fibrillation I48.1 Active 562682655 Problem 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 Active [id number] Problem Atrial fibrillation I48.91 Active 82680198 Problem Other hammer toe(s) (acquired), left foot M20.42 Active 49209104 Problem Reactive depression F32.9 Active 82313443 Problem Other hammer toe(s) (acquired), right foot M20.41 Active 745720456 Problem Incomplete tear of right rotator cuff M75.111 Active 6303616 Problem Thyroid nodule E04.1 Active 80177 5005 Problem Multinodular goiter E04.2 Active 383917594 Problem Neuropathy G62.9 Active 552900101 Problem CHF (congestive heart failure) I50.9 Active 90125907 ALLERGIES No Information ENCOUNTERS Encounter Location Date Diagnosis [facility], [place] [address] [facility] [id number] [address] [place] [id number] Oct, [facility], [place] [address] [facility] [id number] [address] [place] [phone] Aug, [facility], [place] [address] [facility] [id number] [address] [place] [phone] Aug, [facility], [place] [address] [facility] [id number] [address] [place] [address] Aug, CHF (congestive heart failur e) I50.9 ; Sebaceous cyst L72.3 and Morbid obesity E66.01 [place] [address] [place] [id number] [address] [place] [address] Jul, Atrial fibrillation I48.91 [place] [address] [place] [id number] [address] [place] [address] Jul, Onychomycosis B35.1 ; Neurop athy G62.9 ; Other hammer toe(s) (acquired), left foot M20.42 and Other hammer toe(s) (acquired), right foot M20.41 [place] [address] [address] June, [place] [address] [place] [id number] [place] [address] June, Atrial fibrillation I48.91 [place] [address] [address] May, Atrial fibrillation I48.91 [place] [address] [place] [id number] [address] [place] [address] Apr, Thrush B37.0 and Morbid obes ity E66.01 [place] [address] [place] [id number] [address] [place] [address] Mar, Atrial fibrillation I48.91 a nd CHF (congestive heart failure) I50.9 [place] [address] [place] [id number] [address] [place] [address] Feb, Atrial fibrillation I48.91 a nd CHF (congestive heart failure) I50.9 [place] [address] [place] [id number] [address] [place] [address] Feb, [place] [address] [place] [id number] [place] [id number] Jan, Onychomycosis B35.1 and Neur opathy G62.9 [place] [address] [place] [id number] [place] [address] Dec, Tear of medial meniscus of l eft knee, current, unspecified tear type, subsequent encounter S83.242D [facility], [place] [address] [address] Nov, [facility], [place] [address] [place] [id number] [place] [address] Nov, [place] [address] [address] Nov, Allergic reaction, initial e ncounter T78.40XA and BMI 40.0-44.9, adult Z68.41 [place] [address] [address] 02 Nov, 2017 [place] [address] [address] Sep, 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 and BMI 40.0-44.9, adult Z68.41 [place] [address] [address] Aug, Cough R05 and Acute combined systolic (congestive) 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 [place] [address] [address] June, Multinodular goiter E04.2 [place] [address] [address] June, Thyroid nodule E04.1 [place] [address] [place] [id number] [address] [place] [address] May, [place] [address] [address] May, Abnormal TSH R94.6 [facility] [address] [place] [id number] [address] [place] [id number] May, Dental examination Z01.20 [place] [address] [address] Apr, Atrial fibrillation I48.91 [facility], [place] [address] [address] Apr, [facility], [place] [address] [address] Apr, Pain of left breast N64.4 an d Encounter for immunization Z23 [facility], [place] [address] [address] Mar, Abnormal TSH R94.6 and Acute combined systolic (congestive) 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 [facility], [place] [address] [address] Mar, [facility], [place] [address] [address] Feb, [facility], [place] [address] [address] Feb, Persistent atrial fibrillati on I48.1 and Reactive depression F32.9 [facility], [place] [address] [address] Feb, [facility], [place] [address] [place] [id number] [address] [place] [address] Feb, [facility], [place] [address] [place] [id number] [address] [place] [address] Jan, [facility], [place] [address] [address] Jan, Tear of medial meniscus of l eft knee, current, unspecified tear type, subsequent encounter S83.242D [facility], [place] [address] [place] [id number] [address] [place] [address] Dec, [facility], [place] [address] [place] [id number] [address] [place] [id number] Dec, [facility], [place] [address] [place] [id number] [address] [place] [address] Dec, [facility], [place] [address] [id number] [address] [place] [address] Nov, Shortness of breath R06.02 a nd Acute right-sided thoracic back pain M54.6 [facility], [place] [address] [id number] [address] [place] [address] Nov, Incomplete tear of right rot ator cuff M75.111 and Tear of medial meniscus of left knee, current, unspecified tear type, subsequent encounter S83.242D [place] [address] [id number] [address] [place] [address] 14 Oct, 2016 Osteoarthritis of left knee, unspecified osteoarthritis type M17.12 [facility], [place] [address] [id number] [address] [place] [address] Sep, Pain in right shoulder M25.5 11 [place] [address] [id number] [address] [place] [address] Sep, Pain in right shoulder M25.5 11 and Poor vision H54.7 [place] [address] [id number] [address] [place] [address] Sep, [facility], [place] [address] [id number] [address] [place] [address] Sep, Arthritis M19.90 and Poor vi javier H54.7 [facility] [address] [id number] [address] [place] [address] [id number] Aug, Dental caries K02.9 [facility] [address] [id number] [address] [place] [id number] Jul, Dental examination Z01.20 [facility], [place] [address] [id number] [address] [place] [address] Jul, [facility], [place] [address] [id number] [address] [place] [address] Jul, [facility] [address] [id number] [address] [place] [address] [id number] June, Dental examination Z01.20 [facility] [address] [id number] [address] [place] [address] [id number] June, Dental caries K02.9 [facility] [address] [id number] [address] [place] [address] [id number] May, Dental examination Z01.20 [facility], [place] [address] [id number] [address] [place] [address] May, [facility], [place] [address] [id number] [address] [place] [address] May, Bronchospasm J98.01 [facility], [place] [address] [id number] [address] [place] [address] Apr, Bronchospasm J98.01 [facility], [place] [address] [id number] [address] [place] [id number] Apr, [facility], [place] [address] [id number] [address] [place] [address] Apr, Acute non-recurrent maxillar y sinusitis J01.00 and Viral syndrome B34.9 [facility], [place] [address] [id number] [address] [place] [id number] Apr, [facility], [place] [address] [id number] [address] [place] [id number] Feb, Impingement syndrome of righ t shoulder M75.41 and Adhesive capsulitis of right shoulder M75.01 [facility], [place] [address] [id number] [address] [place] [address] Dec, Impingement syndrome of righ t shoulder M75.41 and Adhesive capsulitis of right shoulder M75.01 [facility], [place] [address] [id number] [address] [place] [id number] Nov, [facility], [place] [address] [id number] [address] [place] [id number] Oct, [facility], [place] [address] [id number] [address] [place] [id number] Oct, Impingement syndrome of righ t shoulder M75.41 [facility], [place] [address] [id number] [address] [place] [address] Oct, [facility], [place] [address] [id number] [address] [place] [address] Aug, Impingement syndrome of righ t shoulder M75.41 [facility] [address] [id number] [address] [place] [address] Aug, Oral candidiasis B37.0 [facility], [place] [address] [id number] [address] [place] [address] Jul, Arthritis M19.90 [facility], [place] [address] [id number] [address] [place] [phone] Jul, [facility], [place] [address] [id number] [address] [place] [address] June, Arthritis M19.90 and Mixed h yperlipidemia E78.2 [facility], [place] [address] [id number] [address] [place] [address] Apr, Lumbar strain S39.012A [facility] [address] [id number] [address] [place] [address] [id number] Jan, Encounter for dental examina tion Z01.20 and Dental caries K02.9 [facility] [address] [id number] [address] [place] [address] [id number] Jan, Encounter for dental examina tion Z01.20 and Dental examination Z01.20 [facility] [address] [id number] [address] [place] [address] [id number] June, Dental examination V72.2 [facility] [address] [id number] [address] [place] [address] [id number] June, Dental examination V72.2 [facility], [place] [address] [id number] [address] [place] [address], [place] [address] 14 May, 2014 [facility] [address] [id number] [address] [place] [address], [place] [address] 13 May, 2014 [facility] [address] [id number] [address] [place] [address], [place] [address] Oct, [facility] [address] [id number] [address] [place] [address], [place] [address] Oct, [facility] [address] [id number] [address] [place] [address], [place] [address] Oct, [facility] [address] [id number] [address] [place] [address], [place] [address] Oct, [facility] [address] [id number] [address] [place] [address], [place] [address] Sep, [facility] [address] [id number] [address] [place] [address], [place] [address] Sep, [facility] [address] [id number] [address] [place] [address], [place] [address] Aug, [facility] [address] [id number] [address] [place] [address], [place] [address] Aug, [facility] [address] [id number] [address] [place] [address], [place] [address] Aug, [facility] [address] [id number] [address] [place] [address], [place] [address] Aug, [facility] [address] [id number] [address] [place] [address], [place] [address] Aug, [facility] [address] [id number] [address] [place] [address], [place] [address] Aug, [facility] [address] [id number] [address] [place] [address], [place] [address] June, [facility] [address] [id number] [address] [place] [address], [place] [address] June, [facility] [address] [id number] [address] [place] [address], [place] [address] Jan, [facility] [address] [id number] [address] [place] [address], [place] [address] Jan, [facility] [address] [id number] [address] [place] [address], [place] [address] Oct, [facility] [address] [id number] [address] [place] [address], [place] [address] Oct, [facility] [address] [id number] [address] [place] [address], [place] [address] May, [facility] [address] [id number] [address] [place] [address], [place] [address] Mar, [facility] [address] [id number] [address] [place] [address], [place] [address] Nov, [facility] [address] [id number] [address] [place] [address], [place] [address] Oct, [facility] [address] [id number] [address] [place] [address], [place] [address] Aug, [facility] [address] [id number] [address] [place] [address], [place] [address] Aug, [facility] [address] [id number] [address] [place] [address], [place] [address] Aug, [facility] [address] [id number] [address] [place] [address], [place] [address] Aug, [facility] [address] [id number] [address] [place] [address], [place] [address] Aug, [facility] [address] [id number] [address] [place] [address], [place] [address] Aug, [facility] [address] [id number] [address] [place] [address], [place] [address] Jul, [facility] [address] [id number] [address] [place] [id number] Jul, [facility] [place] [address] [id number] [address] [place] [phone] Jul, [facility] [place] [address] [id number] [address] [place] [address] Jul, [facility] [place] [address] [facility] [id number] [address] [place] [address] Jul, [facility] [place] [address] [id number] [address] [place] [phone] June, [facility] [place] [address] [facility] [id number] [address] [place] [phone] June, [facility] [place] [address] [facility] [id number] [address] [place] [id number] June, [facility] [place] [address] [facility] [id number] [address] [place] [phone] June, [facility] [place] [address] [facility] [id number] [address] [place] [id number] June, IMMUNIZATIONS No Known Immunizations SOCIAL HISTORY [...] History Pneumonia 196 Hospitalization History Heart Attack 2018
--- OUTSIDE RECORDS SUMMARY | 2019-05-02 12:58 | XMS REPORT ---
Author Author Brigido Celestin Doctor Organization [facility] Address Unknown Phone Unavailable Care Team Providers Care Freight Brakeman Name Role Phone Migration, Doctor Unavailable Unavailable PROBLEMS Type Condition ICD9-CM Code BOT96-AN Code Onset Dates Condition S tatus SNOMED Code Problem Arthritis M19.90 Active 2368052 Problem Obstructive sleep apnea (adult) (pediatric) 327.23 Active 40237813 Problem Poor vision H54.7 Active 00480183 3 Problem Mixed hyperlipidemia E78.2 Active 990166631 Problem Persistent atrial fibrillation I48.1 Active 731102544 Problem 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 Active 120296976454798 Problem Atrial fibrillation I48.91 Active 45093237 Problem Other hammer toe(s) (acquired), left foot M20.42 Active 88294287 Problem Reactive depression F32.9 Active 18971848 Problem Other hammer toe(s) (acquired), right foot M20.41 Active 434460185 Problem Incomplete tear of right rotator cuff M75.111 Active 7716724 Problem Thyroid nodule E04.1 Active 21263 5005 Problem Multinodular goiter E04.2 Active 989031367 Problem Neuropathy G62.9 Active 693653657 Problem CHF (congestive heart failure) I50.9 Active 34000430 ALLERGIES Substance Reaction Event Type Date Status Indomethacin Unknown Drug Allergy May, Active Cayenne Pepper Tongue Swelling Drug Allergy May, Active ENCOUNTERS Encounter Location Date Diagnosis [facility] [address] [facility] [id number] [address] [place] [address] Oct, [facility] [address] [facility] [id number] [address] [place] [address] Aug, [facility] [address] [facility] [id number] [address] [place] [address] Jul, Atrial fibrillation I48.91 [facility] [address] [address] Jul, Onychomycosis B35.1 ; Neurop athy G62.9 ; Other hammer toe(s) (acquired), left foot M20.42 and Other hammer toe(s) (acquired), right foot M20.41 [place] [address] [address] June, [place] [address] [address] June, Atrial fibrillation I48.91 [place] [address] [address] May, Atrial fibrillation I48.91 [place] [address] [address] Apr, Thrush B37.0 and Morbid obes ity E66.01 [place] [address] [address] Mar, Atrial fibrillation I48.91 a nd CHF (congestive heart failure) I50.[address] [address] Feb, Atrial fibrillation I48.91 a nd CHF (congestive heart failure) I50.9 [place] [address] [address] Feb, [place] [address] [address] Jan, Onychomycosis B35.1 and Neur opathy G62.[address] [address] Dec, Tear of medial meniscus of l eft knee, current, unspecified tear type, subsequent encounter S83.242D [place] [address] [address] Nov, [place] [id number] [place] [address] Nov, [place] [address] [address] Nov, Allergic reaction, initial e ncounter T78.40XA and BMI 40.0-44.9, adult Z68.41 [place] [id number] [place] [address] Nov, [place] [address] [place] [id number] [address] [place] [address] Sep, 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 and BMI 40.0-44.9, adult Z68.41 [place] [address] [place] [id number] [address] [place] [address] Aug, Cough R05 and Acute combined systolic (congestive) 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 [place] [address] [place] [id number] [address] [place] [address] June, Multinodular goiter E04.2 [place] [address] [address] June, Thyroid nodule E04.1 [place] [address] [place] [id number] [address] [place] [address] May, [place] [address] [place] [id number] [address] [place] [address] May, Abnormal TSH R94.6 [facility] [address] [id number] [address] [place] [phone] May, Dental examination Z01.20 [place] [address] [place] [id number] [address] [place] [address] Apr, Atrial fibrillation I48.91 [place] [address] [place] [id number] [address] [place] [address] Apr, [place] [address] [address] Apr, Pain of left breast N64.4 an d Encounter for immunization Z23 [facility] [address] [place] [id number] [place] [address] Mar, Abnormal TSH R94.6 and Acute combined systolic (congestive) 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 [place] [address] [address] Mar, [facility] [address] [address] Feb, [place] [address] [address] Feb, Persistent atrial fibrillati on I48.1 and Reactive depression F32.9 [place] [address] [address] Feb, [facility] [address] [address] Feb, [place] [address] [address] Jan, [place] [address] [address] Jan, Tear of medial meniscus of l eft knee, current, unspecified tear type, subsequent encounter S83.242D [facility] [address] [place] [id number] [address] [place] [address] Dec, [facility] [address] [place] [id number] [address] [place] [address] Dec, [place] [address] [address] Dec, [facility] [address] [place] [id number] [address] [place] [address] Nov, Shortness of breath R06.02 a nd Acute right-sided thoracic back pain M54.6 [facility] [address] [id number] [address] [place] [address] 19 Nov, 2016 Incomplete tear of right rot ator cuff M75.111 and Tear of medial meniscus of left knee, current, unspecified tear type, subsequent encounter S83.242D [facility] [address] [id number] [address] [place] [address] 14 Oct, 2016 Osteoarthritis of left knee, unspecified osteoarthritis type M17.12 [facility] [address] [id number] [address] [place] [address] 17 Sep, 2016 Pain in right shoulder M25.5 11 [facility] [address] [id number] [address] [place] [address] 17 Sep, 2016 Pain in right shoulder M25.5 11 and Poor vision H54.7 [facility] [address] [id number] [address] [place] [address] Sep, [facility] [address] [id number] [address] [place] [address] Sep, Arthritis M19.90 and Poor vi javier H54.7 [facility] [address] [id number] [address] [place] [address] [id number] Aug, Dental caries K02.9 [facility] [address] [id number] [address] [place] [address] [phone] Jul, Dental examination Z01.20 [facility] [address] [id number] [address] [place] [address] Jul, [facility] [address] [id number] [address] [place] [address] Jul, [facility] [address] [id number] [address] [place] [address] [id number] June, Dental examination Z01.20 [facility] [address] [id number] [address] [place] [address] [phone] June, Dental caries K02.9 [facility] [address] [id number] [address] [place] [address] [id number] May, Dental examination Z01.20 [facility] [address] [id number] [address] [place] [address] May, [facility] [address] [id number] [address] [place] [address] May, Bronchospasm J98.01 [facility] [address] [id number] [address] [place] [address] Apr, Bronchospasm J98.01 [facility] [address] [id number] [address] [place] [address] Apr, [facility] [address] [id number] [address] [place] [address] Apr, Acute non-recurrent maxillar y sinusitis J01.00 and Viral syndrome B34.9 [facility] [address] [id number] [address] [place] [address] Apr, [facility] [address] [id number] [address] [place] [address] Feb, Impingement syndrome of righ t shoulder M75.41 and Adhesive capsulitis of right shoulder M75.01 [facility] [address] [id number] [address] [place] [address] Dec, Impingement syndrome of righ t shoulder M75.41 and Adhesive capsulitis of right shoulder M75.01 [facility] [address] [id number] [address] [place] [address] Nov, [facility] [address] [id number] [address] [place] [address] Oct, [facility] [address] [id number] [address] [place] [address] Oct, Impingement syndrome of righ t shoulder M75.41 [facility] [address] [id number] [address] [place] [address] Oct, [facility] [address] [id number] [address] [place] [address] Aug, Impingement syndrome of righ t shoulder M75.41 [facility] [address] [id number] [address] [place] [address] Aug, Oral candidiasis B37.0 [facility] [address] [id number] [address] [place] [address] Jul, Arthritis M19.90 [facility] [address] [id number] [address] [place] [address] Jul, [facility] [address] [id number] [address] [place] [address] June, Arthritis M19.90 and Mixed h yperlipidemia E78.2 [facility] [address] [id number] [address] [place] [address] Apr, Lumbar strain S39.012A [facility] [address] [id number] [address] [place] [address] [id number] Jan, Encounter for dental examina tion Z01.20 and Dental caries K02.9 [facility] [address] [id number] [address] [place] [address] [id number] Jan, Encounter for dental examina tion Z01.20 and Dental examination Z01.20 [facility] [address] [id number] [address] [place] [address] [id number] June, Dental examination V72.2 [facility] [address] [id number] [address] [place] [address] [id number] June, Dental examination V72.2 [facility] [address] [id number] [address] [place] [phone] 14 May, 2014 [facility] [address] [facility] [id number] [address] [place] [phone] May, [facility] [address] [id number] [address] [place] [address] [place] [address] Oct, [facility] [address] [id number] [address] [place] [address], [place] [address] Oct, [facility] [address] [id number] [address] [place] [address], [place] [address] Oct, [facility] [address] [id number] [address] [place] [address], [place] [address] Oct, [facility] [address] [id number] [address] [place] [address], [place] [address] Sep, [facility] [address] [id number] [address] [place] [address], [place] [address] Sep, [facility] [address] [id number] [address] [place] [address], [place] [address] Aug, [facility] [address] [id number] [address] [place] [address], [place] [address] Aug, [facility] [address] [id number] [address] [place] [address], [place] [address] Aug, [facility] [address] [id number] [address] [place] [address], [place] [address] Aug, [facility] [address] [id number] [address] [place] [address], [place] [address] Aug, [facility] [address] [id number] [address] [place] [address], [place] [address] Aug, [facility] [address] [id number] [address] [place] [address], [place] [address] June, [facility] [address] [id number] [address] [place] [address], [place] [address] June, [facility] [address] [id number] [address] [place] [address], [place] [address] Jan, [facility] [address] [id number] [address] [place] [address], [place] [address] Jan, [facility] [address] [id number] [address] [place] [address], [place] [address] 10 Oct, 2012 [facility] [address] [id number] [address] [place] [address], [place] [address] 06 Oct, 2012 [facility] [address] [id number] [address] [place] [address], [place] [address] May, [facility] [address] [id number] [address] [place] [address], [place] [address] Mar, [facility] [address] [id number] [address] [place] [address], [place] [address] Nov, [facility] [address] [id number] [address] [place] [address], [place] [address] Oct, [facility] [address] [id number] [address] [place] [address], [place] [address] Aug, [facility] [address] [id number] [address] [place] [address], [place] [address] Aug, [facility] [address] [id number] [address] [place] [address], [place] [address] Aug, [facility] [address] [id number] [address] [place] [address], [place] [address] Aug, [facility] [address] [id number] [address] [place] [address], [place] [address] 17 Aug, 2011 [facility] [address] [id number] [address] [place] [address], [place] [address] Aug, [facility] [address] [id number] [address] [place] [address], [place] [address] Jul, [facility] [address] [id number] [address] [place] [address], [place] [address] Jul, [facility] [address] [id number] [address] [place] [address], [place] [address] Jul, [facility] [address] [id number] [address] [place] [address], [place] [address] Jul, [facility] [address] [facility] [id number] [address] [place] [address] Jul, [facility] [address] [facility] [id number] [address] [place] [phone] June, [facility] [address] [facility] [id number] [address] [place] [phone] June, [facility] [address] [facility] [id number] [address] [place] [address] June, [facility] [address] [facility] [id number] [address] [place] [address] June, [facility] [address] [facility] [id number] [address] [place] [phone] June, IMMUNIZATIONS No Known Immunizations SOCIAL HISTORY Never Assessed REASON FOR VISIT EMR-[facility] [place] PLAN OF CARE VITAL SIGNS MEDICATIONS Medication Instructions Dosage Frequency Start Date End Date Duration S tatus Triamcinolone Acetonide 0.1 % apply a th in layer to the affected area(s) by Topical route 3 times per day dispense 60 gram tube Sep, Active Naproxen 500 mg take 1 tablet (500 m g) by oral route 2 times per day with food Aug, Active Penicillin V Potassium 500 mg take 1 tab let by Oral route 3 times per day for 10 daysvoucher Aug, Active Urea 20 % 1 tomasa by Topical route 1 time per day Aug, Active RESULTS No Results PROCEDURES No Known procedures INSTRUCTIONS MEDICATIONS ADMINISTERED No Known Medications MEDICAL (GENERAL) HISTORY Type Description Date Medical History heart murmur Medical History cancer-bladder Medical History asthma Medical History bronchitis Surgical History Cancer was removed from bladder 2009 Hospitalization History Pneumonia 1961 Hospitalization History Heart Attack 2017
--- OUTSIDE RECORDS SUMMARY | 2019-05-02 12:58 | XMS REPORT ---
Author Author Brigido FRANK Organization [facility] Address [address] [place] [address] Care Team Providers Care Other Spatial Scientist Name Role Phone VICK FRANK Unavailable PROBLEMS Type Condition ICD9-CM Code DOG80-JU Code Onset Dates Condition S tatus SNOMED Code Problem Arthritis M19.90 Active 4063026 Problem Incomplete tear of right rotator cuff M75.111 Active 1686928 Problem Poor vision H54.7 Active 42907303 3 Problem Obstructive sleep apnea (adult) (pediatric) 327.23 Active 32258836 Problem Mixed hyperlipidemia E78.2 Active 451545361 Problem Multinodular goiter E04.2 Active 396594996 Problem Thyroid nodule E04.1 Active 52669 5005 Problem Persistent atrial fibrillation I48.1 Active 422982616 Problem Reactive depression F32.9 Active 19324981 Problem Atrial fibrillation I48.91 Active 00747765 Problem 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 Active [id number] ALLERGIES No Information ENCOUNTERS Encounter Location Date Diagnosis [place] [address] [place] [id number] [place] [address] Nov, [place] [address] [place] [id number] [place] [address] Nov, Allergic reaction, initial e ncounter T78.40XA and BMI 40.0-44.9, adult Z68.41 [place] [address] [place] [id number] [place] [address] Nov, [place] [address] [place] [id number] [place] [address] Sep, 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 and BMI 40.0-44.9, adult Z68.41 [facility] [address] [facility] [id number] [address] [place] [address] Aug, Cough R05 and Acute combined systolic (congestive) 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 [facility] [address] [facility] [id number] [address] [place] [address] June, Multinodular goiter E04.2 [facility] [address] [address] June, Thyroid nodule E04.1 [facility] [address] [place] [id number] [place] [address] May, [place] [address] [address] May, Abnormal TSH R94.6 [facility] [address] [id number] May, Dental examination Z01.20 [facility] [address] [address] Apr, Atrial fibrillation I48.91 [place] [address] [address] Apr, [place] [address] [address] Apr, Pain of left breast N64.4 an d Encounter for immunization Z23 [facility] [address] [address] Mar, Abnormal TSH R94.6 and Acute combined systolic (congestive) 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 [facility] [address] [address] Mar, [facility] [address] [place] [id number] [place] [address] Feb, [facility] [address] [address] Feb, Persistent atrial fibrillati on I48.1 and Reactive depression F32.9 [facility] [address] [id number] [address] [place] [address] Feb, [facility] [address] [id number] [address] [place] [address] Feb, [facility] [address] [id number] [address] [place] [address] Jan, [place] [address] [id number] [address] [place] [address] Jan, Tear of medial meniscus of l eft knee, current, unspecified tear type, subsequent encounter S83.242D [place] [address] [id number] [address] [place] [address] Dec, [place] [address] [id number] [address] [place] [address] Dec, [place] [address] [id number] [address] [place] [address] Dec, [place] [address] [facility] [id number] [address] [place] [address] Nov, Shortness of breath R06.02 a nd Acute right-sided thoracic back pain M54.6 [place] [address] [id number] [address] [place] [address] Nov, Incomplete tear of right rot ator cuff M75.111 and Tear of medial meniscus of left knee, current, unspecified tear type, subsequent encounter S83.242D [place] [address] [id number] [address] [place] [address] Oct, Osteoarthritis of left knee, unspecified osteoarthritis type M17.12 [facility] [address] [id number] [address] [place] [address] Sep, Pain in right shoulder M25.5 11 [place] [address] [id number] [address] [place] [address] Sep, Pain in right shoulder M25.5 11 and Poor vision H54.7 [facility] [address] [id number] [address] [place] [address] Sep, [facility] [address] [id number] [address] [place] [address] Sep, Arthritis M19.90 and Poor vi javier H54.7 [facility] [address] [id number] [address] [place] [address] [id number] Aug, Dental caries K02.9 [facility] [address] [id number] [address] [place] [address] [id number] Jul, Dental examination Z01.20 [facility] [address] [id number] [address] [place] [address] Jul, [facility] [address] [id number] [address] [place] [address] Jul, [facility] [address] [id number] [address] [place] [address] [id number] June, Dental examination Z01.20 [facility] [address] [id number] [address] [place] [address] [id number] June, Dental caries K02.9 [facility] [address] [id number] [address] [place] [address] [id number] May, Dental examination Z01.20 [facility] [address] [id number] [address] [place] [address] May, [facility] [address] [id number] [address] [place] [address] May, Bronchospasm J98.01 [facility] [address] [id number] [address] [place] [address] Apr, Bronchospasm J98.01 [facility] [address] [id number] [address] [place] [address] Apr, [facility] [address] [id number] [address] [place] [address] Apr, Acute non-recurrent maxillar y sinusitis J01.00 and Viral syndrome B34.9 [facility] [address] [id number] [address] [place] [id number] Apr, [facility] [address] [id number] [address] [place] [address] Feb, Impingement syndrome of righ t shoulder M75.41 and Adhesive capsulitis of right shoulder M75.01 [facility] [address] [id number] [address] [place] [address] Dec, Impingement syndrome of righ t shoulder M75.41 and Adhesive capsulitis of right shoulder M75.01 [facility] [address] [id number] [address] [place] [address] Nov, [facility] [address] [id number] [address] [place] [address] Oct, [facility] [address] [id number] [address] [place] [address] Oct, Impingement syndrome of righ t shoulder M75.41 [facility] [address] [id number] [address] [place] [address] Oct, [facility] [address] [id number] [address] [place] [address] Aug, Impingement syndrome of righ t shoulder M75.41 [facility] [address] [id number] [address] [place] [address] Aug, Oral candidiasis B37.0 [facility] [address] [id number] [address] [place] [address] Jul, Arthritis M19.90 [facility] [address] [id number] [address] [place] [id number] Jul, [facility] [address] [id number] [address] [place] [address] June, Arthritis M19.90 and Mixed h yperlipidemia E78.2 [facility] [address] [id number] [address] [place] [address] Apr, Lumbar strain S39.012A [facility] [address] [id number] [address] [place] [address] [id number] Jan, Encounter for dental examina tion Z01.20 and Dental caries K02.9 [facility] [address] [id number] [place] [address] [id number] Jan, Encounter for dental examina tion Z01.20 and Dental examination Z01.20 [facility] [address] [id number] [address] [place] [address] [id number] June, Dental examination V72.2 [facility] [address] [id number] [place] [address] [id number] June, Dental examination V72.2 [facility] [address] [id number] [address] [place] [address] May, [facility] [address] [id number] [address] [place] [address] May, [facility] [address] [id number] [address] [place] [address] Oct, [facility] [address] [id number] [address] [place] [address] Oct, [facility] [address] [id number] [address] [place] [address] Oct, [facility] [address] [id number] [address] [place] [address] Oct, [facility] [address] [id number] [address] [place] [address] Sep, [facility] [address] [id number] [address] [place] [address] Sep, [facility] [address] [id number] [address] [place] [address], [place] [address] Aug, [facility] [address] [id number] [address] [place] [address], [place] [address] Aug, [facility] [address] [id number] [address] [place] [address], [place] [address] Aug, [facility] [address] [id number] [address] [place] [address], [place] [address] Aug, [facility] [address] [id number] [address] [place] [address], [place] [address] Aug, [facility] [address] [id number] [address] [place] [address], [place] [address] Aug, [facility] [address] [id number] [address] [place] [address], [place] [address] June, [facility] [address] [id number] [address] [place] [address], [place] [address] June, [facility] [address] [id number] [address] [place] [address], [place] [address] Jan, [facility] [address] [id number] [address] [place] [address], [place] [address] Jan, [facility] [address] [id number] [address] [place] [address], [place] [address] Oct, [facility] [address] [id number] [address] [place] [address], [place] [address] Oct, [facility] [address] [id number] [address] [place] [address], [place] [address] May, [facility] [address] [id number] [address] [place] [address], [place] [address] Mar, [facility] [address] [id number] [address] [place] [address], [place] [address] Nov, [facility] [address] [id number] [address] [place] [address], [place] [address] Oct, [facility] [address] [id number] [address] [place] [address], [place] [address] Aug, [facility] [address] [id number] [address] [place] [address], [place] [address] Aug, [facility] [address] [id number] [address] [place] [address], [place] [address] Aug, [facility] [address] [id number] [address] [place] [address], [place] [address] Aug, [facility] [address] [id number] [address] [place] [address], [place] [address] Aug, [facility] [address] [id number] [address] [place] [address], [place] [address] Aug, [facility] [address] [id number] [address] [place] [address], [place] [address] Jul, [facility] [address] [id number] [address] [place] [address], [place] [address] Jul, [facility] [address] [id number] [address] [place] [address], [place] [address] Jul, [facility] [address] [id number] [address] [place] [address], [place] [address] Jul, [facility] [address] [id number] [address] [place] [address], [place] [address] Jul, [facility] [address] [id number] [address] [place] [address], [place] [address] June, [facility] [address] [id number] [address] [place] [address], [place] [address] June, [facility] [address] [id number] [address] [place] [address], [place] [address] June, [facility] [address] [id number] [address] [place] [address], [place] [address] June, [facility] [address] [id number] [address] [place] [address] June, IMMUNIZATIONS No Known Immunizations SOCIAL HISTORY Never Assessed REASON FOR VISIT Medication refill request PLAN OF CARE VITAL SIGNS MEDICATIONS Unknown Medications RESULTS No Results PROCEDURES No Known procedures INSTRUCTIONS MEDICATIONS ADMINISTERED No Known Medications MEDICAL (GENERAL) HISTORY Type Description Date Medical History heart murmur Medical History cancer-bladder Medical History asthma Medical History bronchitis Surgical History Cancer was removed from bladder 2009 Hospitalization History Pneumonia 1961 Hospitalization History Heart Attack 2018
--- OUTSIDE RECORDS SUMMARY | 2019-05-02 12:58 | XMS REPORT ---
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 Role Phone Migration, Doctor Unavailable Unavailable PROBLEMS Type Condition ICD9-CM Code CWM23-UK Code Onset Dates Condition S tatus SNOMED Code Problem Arthritis M19.90 Active 6312510 Problem Obstructive sleep apnea (adult) (pediatric) 327.23 Active 65045404 Problem Poor vision H54.7 Active 79200198 3 Problem Mixed hyperlipidemia E78.2 Active 594378594 Problem Persistent atrial fibrillation I48.1 Active 546952385 Problem 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 Active 749179303901958 Problem Atrial fibrillation I48.91 Active 05186776 Problem Other hammer toe(s) (acquired), left foot M20.42 Active 48301579 Problem Reactive depression F32.9 Active 29840177 Problem Other hammer toe(s) (acquired), right foot M20.41 Active 822736828 Problem Incomplete tear of right rotator cuff M75.111 Active 3891514 Problem Thyroid nodule E04.1 Active 75099 5005 Problem Multinodular goiter E04.2 Active 496730039 Problem Neuropathy G62.9 Active 294219248 Problem CHF (congestive heart failure) I50.9 Active 30204960 ALLERGIES No Information ENCOUNTERS Encounter Location Date Diagnosis [facility] [address] [facility] [id number] [address] [place] [phone] Oct, [facility] [address] [facility] [id number] [address] [place] [address] Aug, [facility] [address] [facility] [id number] [address] [place] [phone] Aug, [facility] [address] [facility] [id number] [address] [place] [address] Aug, CHF (congestive heart failur e) I50.9 ; Sebaceous cyst L72.3 and Morbid obesity E66.01 [facility] [address] [place] [id number] [address] [place] [address] Jul, Atrial fibrillation I48.91 [facility] [address] [place] [id number] [address] [place] [address] Jul, Onychomycosis B35.1 ; Neurop athy G62.9 ; Other hammer toe(s) (acquired), left foot M20.42 and Other hammer toe(s) (acquired), right foot M20.41 [facility] [address] [address] June, [facility] [address] [place] [id number] [place] [address] June, Atrial fibrillation I48.91 [facility] [address] [address] May, Atrial fibrillation I48.91 [facility] [address] [place] [id number] [address] [place] [address] Apr, Thrush B37.0 and Morbid obes ity E66.01 [facility] [address] [place] [id number] [address] [place] [address] Mar, Atrial fibrillation I48.91 a nd CHF (congestive heart failure) I50.9 [facility] [address] [place] [id number] [address] [place] [address] Feb, Atrial fibrillation I48.91 a nd CHF (congestive heart failure) I50.9 [facility] [address] [place] [id number] [address] [place] [address] Feb, [facility] [address] [place] [id number] [place] [address] Jan, Onychomycosis B35.1 and Neur opathy G62.9 [facility] [address] [place] [id number] [place] [address] Dec, Tear of medial meniscus of l eft knee, current, unspecified tear type, subsequent encounter S83.242D [facility] [address] [address] Nov, [facility] [address] [place] [id number] [place] [address] Nov, [facility] [address] [address] Nov, Allergic reaction, initial e ncounter T78.40XA and BMI 40.0-44.9, adult Z68.41 [facility] [address] [address] 02 Nov, 2017 [place] [address] [address] Sep, 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 and BMI 40.0-44.9, adult Z68.41 [facility] [address] [address] Aug, Cough R05 and Acute combined systolic (congestive) 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 [facility] [address] [address] June, Multinodular goiter E04.2 [facility] [address] [address] June, Thyroid nodule E04.1 [facility] [address] [place] [id number] [address] [place] [address] May, [facility] [address] [address] May, Abnormal TSH R94.6 [facility] [address] [place] [id number] [address] [place] [address] [phone] May, Dental examination Z01.20 [facility] [address] [address] Apr, Atrial fibrillation I48.91 [facility] [address] [address] Apr, [facility] [address] [address] Apr, Pain of left breast N64.4 an d Encounter for immunization Z23 [facility] [address] [address] Mar, Abnormal TSH R94.6 and Acute combined systolic (congestive) 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 [facility] [address] [address] Mar, [facility] [address] [address] Feb, [facility] [address] [address] Feb, Persistent atrial fibrillati on I48.1 and Reactive depression F32.9 [facility] [address] [address] Feb, [facility] [address] [place] [id number] [address] [place] [address] Feb, [facility] [address] [place] [id number] [address] [place] [address] Jan, [facility] [address] [address] Jan, Tear of medial meniscus of l eft knee, current, unspecified tear type, subsequent encounter S83.242D [facility] [address] [place] [id number] [address] [place] [address] Dec, [facility] [address] [place] [id number] [address] [place] [address] Dec, [facility] [address] [place] [id number] [address] [place] [address] Dec, [facility] [address] [id number] [address] [place] [address] Nov, Shortness of breath R06.02 a nd Acute right-sided thoracic back pain M54.6 [facility] [address] [id number] [address] [place] [address] Nov, Incomplete tear of right rot ator cuff M75.111 and Tear of medial meniscus of left knee, current, unspecified tear type, subsequent encounter S83.242D [facility] [address] [id number] [address] [place] [address] 14 Oct, 2016 Osteoarthritis of left knee, unspecified osteoarthritis type M17.12 [facility] [address] [id number] [address] [place] [address] Sep, Pain in right shoulder M25.5 11 [place] [address] [id number] [address] [place] [address] Sep, Pain in right shoulder M25.5 11 and Poor vision H54.7 [facility] [facility] [address] [id number] [address] [place] [address] Sep, [facility] [address] [id number] [address] [place] [address] Sep, Arthritis M19.90 and Poor vi javier H54.7 [facility] [address] [id number] [address] [place] [address] [id number] Aug, Dental caries K02.9 [facility] [address] [id number] [address] [place] [address] [id number] Jul, Dental examination Z01.20 [facility] [address] [id number] [address] [place] [address] Jul, [facility] [address] [id number] [address] [place] [address] Jul, [facility] [address] [id number] [address] [place] [address] [id number] June, Dental examination Z01.20 [facility] [address] [id number] [address] [place] [address] [id number] June, Dental caries K02.9 [facility] [address] [id number] [address] [place] [id number] May, Dental examination Z01.20 [facility] [address] [id number] [address] [place] [phone] May, [facility] [address] [id number] [address] [place] [address] May, Bronchospasm J98.01 [facility] [address] [id number] [address] [place] [address] Apr, Bronchospasm J98.01 [facility] [address] [id number] [address] [place] [address] Apr, [facility] [address] [id number] [address] [place] [address] Apr, Acute non-recurrent maxillar y sinusitis J01.00 and Viral syndrome B34.9 [facility] [address] [id number] [address] [place] [address] Apr, [facility] [address] [id number] [address] [place] [address] Feb, Impingement syndrome of righ t shoulder M75.41 and Adhesive capsulitis of right shoulder M75.01 [facility] [address] [id number] [address] [place] [address] Dec, Impingement syndrome of righ t shoulder M75.41 and Adhesive capsulitis of right shoulder M75.01 [facility] [address] [id number] [address] [place] [address] Nov, [facility] [address] [id number] [address] [place] [address] Oct, [facility] [address] [id number] [address] [place] [address] Oct, Impingement syndrome of righ t shoulder M75.41 [facility] [address] [id number] [address] [place] [address] Oct, [facility] [address] [id number] [address] [place] [address] Aug, Impingement syndrome of righ t shoulder M75.41 [facility] [address] [id number] [address] [place] [address] Aug, Oral candidiasis B37.0 [facility] [address] [id number] [address] [place] [address] Jul, Arthritis M19.90 [facility] [address] [id number] [address] [place] [address] Jul, [facility] [address] [id number] [address] [place] [address] June, Arthritis M19.90 and Mixed h yperlipidemia E78.2 [facility] [address] [id number] [address] [place] [address] Apr, Lumbar strain S39.012A [facility] [address] [id number] [address] [place] [address] [id number] Jan, Encounter for dental examina tion Z01.20 and Dental caries K02.9 [facility] [address] [id number] [address] [place] [address] [id number] Jan, Encounter for dental examina tion Z01.20 and Dental examination Z01.20 [facility] [address] [id number] [address] [place] [address] [id number] June, Dental examination V72.2 [facility] [address] [id number] [address] [place] [id number] June, Dental examination V72.2 [facility] [address] [id number] [address] [place] [address], [place] [address] 14 May, 2014 [facility] [address] [id number] [address] [place] [address], [place] [address] 13 May, 2014 [facility] [address] [id number] [address] [place] [address], [place] [address] Oct, [facility] [address] [id number] [address] [place] [address], [place] [address] Oct, [facility] [address] [id number] [address] [place] [address], [place] [address] Oct, [facility] [address] [id number] [address] [place] [address], [place] [address] Oct, [facility] [address] [id number] [address] [place] [address], [place] [address] Sep, [facility] [address] [id number] [address] [place] [address], [place] [address] Sep, [facility] [address] [id number] [address] [place] [address], [place] [address] Aug, [facility] [address] [id number] [address] [place] [address], [place] [address] Aug, [facility] [address] [id number] [address] [place] [address], [place] [address] Aug, [facility] [address] [id number] [address] [place] [address], [place] [address] Aug, [facility] [address] [id number] [address] [place] [address], [place] [address] Aug, [facility] [address] [id number] [address] [place] [address], [place] [address] Aug, [facility] [address] [id number] [address] [place] [address], [place] [address] June, [facility] [address] [id number] [address] [place] [address], [place] [address] June, [facility] [address] [id number] [address] [place] [address], [place] [address] Jan, [facility] [address] [id number] [address] [place] [address], [place] [address] Jan, [facility] [address] [id number] [address] [place] [address], [place] [address] Oct, [facility] [address] [id number] [address] [place] [address], [place] [address] Oct, [facility] [address] [id number] [address] [place] [address], [place] [address] May, [facility] [address] [id number] [address] [place] [address], [place] [address] Mar, [facility] [address] [id number] [address] [place] [address], [place] [address] Nov, [facility] [address] [id number] [address] [place] [address], [place] [address] Oct, [facility] [address] [id number] [address] [place] [address], [place] [address] Aug, [facility] [address] [id number] [address] [place] [address], [place] [address] Aug, [facility] [address] [id number] [address] [place] [address], [place] [address] Aug, [facility] [address] [id number] [address] [place] [address], [place] [address] Aug, [facility] [address] [id number] [address] [place] [address], [place] [address] Aug, [facility] [address] [id number] [address] [place] [address], [place] [address] Aug, [facility] [address] [id number] [address] [place] [address], [place] [address] Jul, [facility] [address] [id number] [address] [place] [address] Jul, [facility] [address] [id number] [address] [place] [address] Jul, [facility] [address] [id number] [address] [place] [address] Jul, [facility] [address] [facility] [id number] [address] [place] [address] Jul, [facility] [address] [id number] [address] [place] [address] June, [facility] [address] [facility] [id number] [address] [place] [address] June, [facility] [address] [facility] [id number] [address] [place] [address] June, [facility] [address] [facility] [id number] [address] [place] [address] June, [facility] [address] [facility] [id number] [address] [place] [address] June, IMMUNIZATIONS No Known Immunizations SOCIAL HISTORY [...]
--- OUTSIDE RECORDS SUMMARY | 2019-05-02 12:58 | XMS REPORT ---
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 Phone Migration, Doctor Unavailable Unavailable PROBLEMS Type Condition ICD9-CM Code [id number] Code Onset Dates Condition S tatus SNOMED Code Problem Arthritis M19.90 Active 0748297 Problem Obstructive sleep apnea (adult) (pediatric) 327.23 Active 67299439 Problem Incomplete tear of right rotator cuff M75.111 Active 4097418 Problem Reactive depression F32.9 Active 52276447 Problem Persistent atrial fibrillation I48.1 Active 195792032 Problem Neuropathy G62.9 Active 063880454 Problem Poor vision H54.7 Active 91564436 3 Problem CHF (congestive heart failure) I50.9 Active 02849178 Problem Mixed hyperlipidemia E78.2 Active 829565504 Problem 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 Active 654924928589673 Problem Atrial fibrillation I48.91 Active 37930335 Problem Thyroid nodule E04.1 Active 19724 5005 Problem Multinodular goiter E04.2 Active 409152340 ALLERGIES No Information ENCOUNTERS Encounter Location Date Diagnosis [place] [address] [place] [id number] [address] [place] [phone] June, Atrial fibrillation I48.91 [place] [address] [facility] [id number] [address] [place] [phone] May, Atrial fibrillation I48.91 [place] [address] [facility] [id number] [address] [place] [phone] Apr, Thrush B37.0 and Morbid obes ity E66.01 [place] [address] [place] [id number] [address] [place] [address] Mar, Atrial fibrillation I48.91 a nd CHF (congestive heart failure) I50.9 [place] [address] [address] Feb, Atrial fibrillation I48.91 a nd CHF (congestive heart failure) I50.9 [place] [address] [address] Feb, [place] [address] [address] Jan, Onychomycosis B35.1 and Neur opathy G62.9 [place] [address] [address] Dec, Tear of medial meniscus of l eft knee, current, unspecified tear type, subsequent encounter S83.242D [place] [address] [address] Nov, [place] [address] [address] Nov, [place] [address] [address] Nov, Allergic reaction, initial e ncounter T78.40XA and BMI 40.0-44.9, adult Z68.41 [place] [address] [address] 02 Nov, 2017 [place] [address] [address] Sep, 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 and BMI 40.0-44.9, adult Z68.41 [place] [address] [address] Aug, Cough R05 and Acute combined systolic (congestive) 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 [place] [address] [address] June, Multinodular goiter E04.2 [place] [address] [place] [address] [place] [address] June, Thyroid nodule E04.1 [facility] [address] [facility] [id number] [address] [place] [phone] May, [facility] [address] [facility] [id number] [address] [place] [phone] May, Abnormal TSH R94.6 [facility] [address] [facility] [id number] [address] [place] [address] [id number] May, Dental examination Z01.20 [facility] [address] [facility] [id number] [address] [place] [address] Apr, Atrial fibrillation I48.91 [facility] [address] [place] [id number] [address] [place] [address] Apr, [facility] [address] [address] Apr, Pain of left breast N64.4 an d Encounter for immunization Z23 [facility] [address] [place] [id number] [address] [place] [address] Mar, Abnormal TSH R94.6 and Acute combined systolic (congestive) 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 [facility] [id number] [place] [address] Mar, [facility] [address] [facility] [id number] [address] [place] [address] Feb, [facility] [address] [place] [id number] [address] [place] [address] Feb, Persistent atrial fibrillati on I48.1 and Reactive depression F32.9 [facility] [address] [facility] [id number] [address] [place] [phone] Feb, [facility] [address] [place] [id number] [address] [place] [phone] Feb, [facility] [address] [place] [id number] [place] [address] [place] [address] Jan, [facility] [address] [id number] [address] [place] [address] Jan, Tear of medial meniscus of l eft knee, current, unspecified tear type, subsequent encounter S83.242D [facility] [address] [id number] [address] [place] [address] Dec, [place] [address] [id number] [address] [place] [address] Dec, [facility] [address] [id number] [address] [place] [address] Dec, [place] [address] [id number] [address] [place] [address] Nov, Shortness of breath R06.02 a nd Acute right-sided thoracic back pain M54.6 [place] [address] [id number] [address] [place] [address] Nov, Incomplete tear of right rot ator cuff M75.111 and Tear of medial meniscus of left knee, current, unspecified tear type, subsequent encounter S83.242D [place] [address] [id number] [address] [place] [address] Oct, Osteoarthritis of left knee, unspecified osteoarthritis type M17.12 [place] [address] [id number] [address] [place] [address] Sep, Pain in right shoulder M25.5 [address] [place] [address] [id number] [address] [place] [address] Sep, Pain in right shoulder M25.5 11 and Poor vision H54.7 [place] [address] [id number] [address] [place] [address] 15 Sep, 2016 [place] [address] [id number] [address] [place] [address] Sep, Arthritis M19.90 and Poor vi javier H54.7 [facility] [address] [id number] [address] [place] [id number] Aug, Dental caries K02.9 [facility] [address] [id number] [address] [place] [address] [id number] Jul, Dental examination Z01.20 [facility] [address] [id number] [address] [place] [address] Jul, [facility] [address] [id number] [address] [place] [address] Jul, [facility] [address] [id number] [address] [place] [address] [id number] June, Dental examination Z01.20 [facility] [address] [id number] [address] [place] [id number] June, Dental caries K02.9 [facility] [address] [id number] [address] [place] [id number] May, Dental examination Z01.20 [facility] [address] [id number] [address] [place] [address] May, [facility] [address] [id number] [address] [place] [address] May, Bronchospasm J98.01 [facility] [address] [id number] [address] [place] [address] Apr, Bronchospasm J98.01 [facility] [address] [id number] [address] [place] [id number] Apr, [facility] [address] [id number] [address] [place] [address] Apr, Acute non-recurrent maxillar y sinusitis J01.00 and Viral syndrome B34.9 [facility] [address] [id number] [address] [place] [address] Apr, [facility] [address] [id number] [address] [place] [address] Feb, Impingement syndrome of righ t shoulder M75.41 and Adhesive capsulitis of right shoulder M75.01 [facility] [address] [id number] [address] [place] [address] Dec, Impingement syndrome of righ t shoulder M75.41 and Adhesive capsulitis of right shoulder M75.01 [facility] [address] [id number] [address] [place] [address] Nov, [facility] [address] [id number] [address] [place] [address] Oct, [facility] [address] [id number] [address] [place] [address] Oct, Impingement syndrome of righ t shoulder M75.41 [facility] [address] [id number] [address] [place] [address] Oct, [facility] [address] [id number] [address] [place] [address] Aug, Impingement syndrome of righ t shoulder M75.41 [facility] [address] [id number] [address] [place] [address] Aug, Oral candidiasis B37.0 [facility] [address] [id number] [address] [place] [address] Jul, Arthritis M19.90 [facility] [address] [id number] [address] [place] [address] Jul, [facility] [address] [id number] [address] [place] [address] June, Arthritis M19.90 and Mixed h yperlipidemia E78.2 [place] [address] [id number] [address] [place] [address] Apr, Lumbar strain S39.012A [facility] [address] [id number] [address] [place] [address] [id number] Jan, Encounter for dental examina tion Z01.20 and Dental caries K02.9 [facility] [address] [id number] [address] [place] [address] [id number] Jan, Encounter for dental examina tion Z01.20 and Dental examination Z01.20 [facility] [address] [id number] [address] [place] [address] [id number] June, Dental examination V72.2 [facility] [address] [id number] [address] [place] [address] [id number] June, Dental examination V72.2 [facility] [address] [id number] [address] [place] [address] May, [facility] [address] [id number] [address] [place] [phone] May, [facility] [address] [id number] [address] [place] [phone] Oct, [facility] [address] [id number] [address] [place] [phone] Oct, [facility] [address] [id number] [address] [place] [phone] Oct, [facility] [address] [id number] [address] [place] [phone] Oct, [facility] [address] [id number] [address] [place] [phone] Sep, [facility] [address] [id number] [address] [place] [phone] Sep, [facility] [address] [id number] [address] [place] [phone] Aug, [facility] [address] [id number] [address] [place] [phone] Aug, [facility] [address] [id number] [address] [place] [phone] Aug, [facility] [address] [id number] [address] [place] [address] [place] [address] Aug, [facility] [address] [id number] [address] [place] [address], [place] [address] Aug, [facility] [address] [id number] [address] [place] [address], [place] [address] Aug, [facility] [address] [id number] [address] [place] [address], [place] [address] June, [facility] [address] [id number] [address] [place] [address], [place] [address] June, [facility] [address] [id number] [address] [place] [address], [place] [address] Jan, [facility] [address] [id number] [address] [place] [address], [place] [address] Jan, [facility] [address] [id number] [address] [place] [address], [place] [address] Oct, [facility] [address] [id number] [address] [place] [address], [place] [address] Oct, [facility] [address] [id number] [address] [place] [address], [place] [address] May, [facility] [address] [id number] [address] [place] [address], [place] [address] Mar, [facility] [address] [id number] [address] [place] [address], [place] [address] Nov, [facility] [address] [id number] [address] [place] [address], [place] [address] Oct, [facility] [address] [id number] [address] [place] [address], [place] [address] Aug, [facility] [address] [id number] [address] [place] [address], [place] [address] Aug, [facility] [address] [id number] [address] [place] [address], [place] [address] Aug, [facility] [address] [id number] [address] [place] [id number] 18 Aug, 2011 [facility] [address] [id number] [address] [place] [id number] 17 Aug, 2011 [facility] [address] [id number] [address] [place] [phone] Aug, [facility] [address] [id number] [address] [place] [phone] Jul, [facility] [address] [id number] [address] [place] [phone] Jul, [facility] [address] [id number] [address] [place] [phone] Jul, [facility] [address] [id number] [address] [place] [phone] Jul, [facility] [address] [id number] [address] [place] [phone] Jul, [facility] [address] [id number] [address] [place] [phone] June, [facility] [address] [id number] [address] [place] [phone] June, [facility] [address] [id number] [address] [place] [phone] June, [facility] [address] [id number] [address] [place] [phone] June, [facility] [address] [id number] [address] [place] [phone] June, IMMUNIZATIONS No Known Immunizations SOCIAL HISTORY Never Assessed [place]AS[place] [place] VITAL SIGNS MEDICATIONS Unknown [...]
--- OUTSIDE RECORDS SUMMARY | 2019-05-02 12:59 | XMS REPORT ---
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 Name Role Phone VICK FRANK Unavailable PROBLEMS Type Condition ICD9-CM Code BHG86-ID Code Onset Dates Condition S tatus SNOMED Code Problem Arthritis M19.90 Active 6146511 Problem Incomplete tear of right rotator cuff M75.111 Active 8835290 Problem Poor vision H54.7 Active 07397965 3 Problem Obstructive sleep apnea (adult) (pediatric) 327.23 Active 16584441 Problem Mixed hyperlipidemia E78.2 Active 571668216 Problem Multinodular goiter E04.2 Active 467424649 Problem Thyroid nodule E04.1 Active 99183 5005 Problem Persistent atrial fibrillation I48.1 Active 423477671 Problem Reactive depression F32.9 Active 45530310 Problem Atrial fibrillation I48.91 Active 72075440 Problem 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 Active [id number] ALLERGIES No Information ENCOUNTERS Encounter Location Date Diagnosis [place] [address] [place] [id number] [place] [phone] Nov, [place] [address] [place] [id number] [address] [place] [phone] Nov, Allergic reaction, initial e ncounter T78.40XA and BMI 40.0-44.9, adult Z68.41 [place] [address] [place] [id number] [place] [address] Nov, [place] [address] [place] [id number] [place] [phone] Sep, 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 and BMI 40.0-44.9, adult Z68.41 [facility] [address] [facility] [id number] [address] [place] [phone] Aug, Cough R05 and Acute combined systolic (congestive) 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 [facility] [address] [facility] [id number] [address] [place] [phone] June, Multinodular goiter E04.2 [facility] [address] [address] June, Thyroid nodule E04.1 [facility] [address] [place] [id number] [place] [phone] May, [place] [address] [address] May, Abnormal TSH R94.6 [facility] [address] [id number] May, Dental examination Z01.20 [facility] [address] [address] Apr, Atrial fibrillation I48.91 [place] [address] [address] Apr, [place] [address] [address] Apr, Pain of left breast N64.4 an d Encounter for immunization Z23 [facility] [address] [id number] Mar, Abnormal TSH R94.6 and Acute combined systolic (congestive) 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 [facility] [address] [address] Mar, [facility] [address] [place] [id number] [place] [phone] Feb, [facility] [address] [address] Feb, Persistent atrial fibrillati on I48.1 and Reactive depression F32.9 [facility] [address] [id number] [address] [place] [phone] Feb, [facility] [address] [id number] [address] [place] [phone] Feb, [facility] [address] [id number] [address] [place] [phone] Jan, [place] [address] [id number] [address] [place] [phone] Jan, Tear of medial meniscus of l eft knee, current, unspecified tear type, subsequent encounter S83.242D [place] [address] [id number] [address] [place] [phone] Dec, [place] [address] [id number] [address] [place] [phone] Dec, [place] [address] [id number] [address] [place] [address] Dec, [place] [address] [facility] [id number] [address] [place] [phone] Nov, Shortness of breath R06.02 a nd Acute right-sided thoracic back pain M54.6 [place] [address] [id number] [address] [place] [phone] Nov, Incomplete tear of right rot ator cuff M75.111 and Tear of medial meniscus of left knee, current, unspecified tear type, subsequent encounter S83.242D [place] [address] [id number] [address] [place] [address] Oct, Osteoarthritis of left knee, unspecified osteoarthritis type M17.12 [facility] [address] [id number] [address] [place] [phone] Sep, Pain in right shoulder M25.5 11 [place] [address] [id number] [address] [place] [phone] Sep, Pain in right shoulder M25.5 11 and Poor vision H54.7 [facility] [address] [id number] [address] [place] [phone] Sep, [facility] [address] [id number] [address] [place] [phone] Sep, Arthritis M19.90 and Poor vi javier H54.7 [facility] [address] [id number] [address] [place] [id number] Aug, Dental caries K02.9 [facility] [address] [id number] [address] [place] [id number] Jul, Dental examination Z01.20 [facility] [address] [id number] [address] [place] [phone] Jul, [facility] [address] [id number] [address] [place] [address] Jul, [facility] [address] [id number] [address] [place] [id number] June, Dental examination Z01.20 [facility] [address] [id number] [address] [place] [id number] June, Dental caries K02.9 [facility] [address] [id number] [address] [place] [id number] May, Dental examination Z01.20 [facility] [address] [id number] [address] [place] [phone] May, [facility] [address] [id number] [address] [place] [address] May, Bronchospasm J98.01 [facility] [address] [id number] [address] [place] [phone] Apr, Bronchospasm J98.01 [facility] [address] [id number] [address] [place] [id number] Apr, [facility] [address] [id number] [address] [place] [phone] Apr, Acute non-recurrent maxillar y sinusitis J01.00 and Viral syndrome B34.9 [facility] [address] [id number] [address] [place] [phone] Apr, [facility] [address] [id number] [address] [place] [id number] Feb, Impingement syndrome of righ t shoulder M75.41 and Adhesive capsulitis of right shoulder M75.01 [facility] [address] [id number] [address] [place] [phone] Dec, Impingement syndrome of righ t shoulder M75.41 and Adhesive capsulitis of right shoulder M75.01 [facility] [address] [id number] [address] [place] [phone] Nov, [facility] [address] [id number] [address] [place] [phone] Oct, [facility] [address] [id number] [address] [place] [phone] Oct, Impingement syndrome of righ t shoulder M75.41 [facility] [address] [id number] [address] [place] [phone] Oct, [facility] [address] [id number] [address] [place] [phone] Aug, Impingement syndrome of righ t shoulder M75.41 [facility] [address] [id number] [address] [place] [phone] Aug, Oral candidiasis B37.0 [facility] [address] [id number] [address] [place] [phone] Jul, Arthritis M19.90 [facility] [address] [id number] [address] [place] [phone] Jul, [facility] [address] [id number] [address] [place] [phone] June, Arthritis M19.90 and Mixed h yperlipidemia E78.2 [facility] [address] [id number] [address] [place] [phone] Apr, Lumbar strain S39.012A [facility] [address] [id number] [address] [place] [address] [id number] Jan, Encounter for dental examina tion Z01.20 and Dental caries K02.9 [facility] [id number] [place] [address] [id number] Jan, Encounter for dental examina tion Z01.20 and Dental examination Z01.20 [facility] [address] [id number] [address] [place] [address] [id number] June, Dental examination V72.2 [facility] [address] [id number] [place] [address] [id number] June, Dental examination V72.2 [facility] [address] [id number] [address] [place] [phone] May, [facility] [address] [id number] [address] [place] [phone] May, [facility] [address] [id number] [address] [place] [phone] Oct, [facility] [address] [id number] [address] [place] [phone] Oct, [facility] [address] [id number] [address] [place] [phone] Oct, [facility] [address] [id number] [address] [place] [phone] Oct, [facility] [address] [id number] [address] [place] [phone] Sep, [facility] [address] [id number] [address] [place] [phone] Sep, [facility] [address] [id number] [address] [place] [address], [place] [address] Aug, [facility] [address] [id number] [address] [place] [address], [place] [address] Aug, [facility] [address] [id number] [address] [place] [address], [place] [address] Aug, [facility] [address] [id number] [address] [place] [address], [place] [address] Aug, [facility] [address] [id number] [address] [place] [address], [place] [address] Aug, [facility] [address] [id number] [address] [place] [address], [place] [address] Aug, [facility] [address] [id number] [address] [place] [address], [place] [address] June, [facility] [address] [id number] [address] [place] [address], [place] [address] June, [facility] [address] [id number] [address] [place] [address], [place] [address] Jan, [facility] [address] [id number] [address] [place] [address], [place] [address] Jan, [facility] [address] [id number] [address] [place] [address], [place] [address] Oct, [facility] [address] [id number] [address] [place] [address], [place] [address] Oct, [facility] [address] [id number] [address] [place] [address], [place] [address] May, [facility] [address] [id number] [address] [place] [address], [place] [address] Mar, [facility] [address] [id number] [address] [place] [address], [place] [address] Nov, [facility] [address] [id number] [address] [place] [address], [place] [address] Oct, [facility] [address] [id number] [address] [place] [address], [place] [address] Aug, [facility] [address] [id number] [address] [place] [address], [place] [address] Aug, [facility] [address] [id number] [address] [place] [address], [place] [address] Aug, [facility] [address] [id number] [address] [place] [address], [place] [address] Aug, [facility] [address] [id number] [address] [place] [address], [place] [address] Aug, [facility] [address] [id number] [address] [place] [address], [place] [address] Aug, [facility] [address] [id number] [address] [place] [address], [place] [address] Jul, [facility] [address] [id number] [address] [place] [address], [place] [address] Jul, [facility] [address] [id number] [address] [place] [address], [place] [address] Jul, [facility] [address] [id number] [address] [place] [address], [place] [address] Jul, [facility] [address] [id number] [address] [place] [address], [place] [address] Jul, [facility] [address] [id number] [address] [place] [address], [place] [address] June, [facility] [address] [id number] [address] [place] [address], [place] [address] June, [facility] [address] [id number] [address] [place] [address], [place] [address] June, [facility] [address] [id number] [address] [place] [address], [place] [address] June, [facility] [address] [id number] [address] [place] [address] June, IMMUNIZATIONS No Known Immunizations SOCIAL HISTORY Never Assessed REASON FOR VISIT Requests return call PLAN OF CARE VITAL SIGNS MEDICATIONS Unknown [...]
--- OUTSIDE RECORDS SUMMARY | 2019-05-02 12:59 | XMS REPORT ---
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 Name Role Phone VICK FRANK Unavailable PROBLEMS Type Condition ICD9-CM Code OAB24-QH Code Onset Dates Condition S tatus SNOMED Code Problem Arthritis M19.90 Active 5866412 Problem Incomplete tear of right rotator cuff M75.111 Active 9065291 Problem Poor vision H54.7 Active 77254564 3 Problem Obstructive sleep apnea (adult) (pediatric) 327.23 Active 12822242 Problem Mixed hyperlipidemia E78.2 Active 487037062 Problem Multinodular goiter E04.2 Active 958492265 Problem Thyroid nodule E04.1 Active 44063 5005 Problem Persistent atrial fibrillation I48.1 Active 424674841 Problem Reactive depression F32.9 Active 91660718 Problem Atrial fibrillation I48.91 Active 35168018 Problem 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 Active [id number] ALLERGIES Substance Reaction Event Type Date Status Singulair tongue swelling Drug Allergy June, Active Indomethacin Unknown Drug Allergy June, Active Clindamycin HCl Unknown Drug Allergy June, Active Cayenne Pepper Tongue Swelling Drug Allergy June, Active ENCOUNTERS Encounter Location Date Diagnosis [facility] [address] [facility]NOTE [facility]] [id number] [address] [place] [phone] Sep, 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 and BMI 40.0-44.9, adult Z68.41 [facility] [address] [place] [id number] [address] [place] [address] Aug, Cough R05 and Acute combined systolic (congestive) 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 [facility] [address] [facility]NOTE [facility]] [id number] [address] [place] [address] June, Multinodular goiter E04.2 [facility] [address] [facility]] [id number] [address] [place] [address] June, Thyroid nodule E04.1 [facility] [address] [facility]] [id number] [address] [place] [address] May, [facility] [address] [address] May, Abnormal TSH R94.6 [facility] [address] [id number] [address] [place] [id number] May, Dental examination Z01.20 [place] [address] [place] [id number] [place] [address] Apr, Atrial fibrillation I48.91 [place] [address] [address] Apr, [facility] [address] [address] Apr, Pain of left breast N64.4 an d Encounter for immunization Z23 [place] [address] [phone] Mar, Abnormal TSH R94.6 and Acute combined systolic (congestive) 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 [facility] [address] [place] [id number] [place] [address] Mar, [facility] [address] [place] [id number] [address] [place] [address] Feb, [facility] [address] [address] Feb, Persistent atrial fibrillati on I48.1 and Reactive depression F32.9 [facility] [address] [place] [id number] [place] [address] Feb, [facility] [address] [place] [address] Feb, [facility] [address] [id number] [address] [place] [address] Jan, [facility] [address] [id number] [address] [place] [phone] Jan, Tear of medial meniscus of l eft knee, current, unspecified tear type, subsequent encounter S83.242D [facility] [address] [id number] [address] [place] [phone] Dec, [facility] [address] [id number] [address] [place] [phone] Dec, [facility] [address] [id number] [address] [place] [phone] Dec, [facility] [address] [id number] [address] [place] [address] Nov, Shortness of breath R06.02 a nd Acute right-sided thoracic back pain M54.6 [facility] [address] [id number] [address] [place] [address] Nov, Incomplete tear of right rot ator cuff M75.111 and Tear of medial meniscus of left knee, current, unspecified tear type, subsequent encounter S83.242D [facility] [address] [id number] [address] [place] [phone] Oct, Osteoarthritis of left knee, unspecified osteoarthritis type M17.12 [facility] [address] [id number] [address] [place] [address] Sep, Pain in right shoulder M25.5 11 [facility] [address] [id number] [address] [place] [address] Sep, Pain in right shoulder M25.5 11 and Poor vision H54.7 [facility] [address] [id number] [address] [place] [address] Sep, [facility] [address] [id number] [address] [place] [address] Sep, Arthritis M19.90 and Poor vi javier H54.7 [facility] [address] [id number] [address] [place] [phone] Aug, Dental caries K02.9 [facility] [address] [id number] [address] [place] [address] [id number] Jul, Dental examination Z01.20 [facility] [address] [id number] [address] [place] [address] Jul, [facility] [address] [id number] [address] [place] [address] Jul, [facility] [address] [id number] [address] [place] [address] [id number] June, Dental examination Z01.20 [facility] [address] [id number] [address] [place] [address] [id number] June, Dental caries K02.9 [facility] [address] [id number] [address] [place] [id number] May, Dental examination Z01.20 [facility] [address] [id number] [address] [place] [address] May, [facility] [address] [id number] [address] [place] [address] May, Bronchospasm J98.01 [facility] [address] [id number] [address] [place] [address] Apr, Bronchospasm J98.01 [facility] [address] [id number] [address] [place] [address] Apr, [facility] [address] [facility]] [id number] [address] [place] [address] Apr, Acute non-recurrent maxillar y sinusitis J01.00 and Viral syndrome B34.9 [facility] [address] [id number] [address] [place] [address] Apr, [facility] [address] [id number] [address] [place] [phone] Feb, Impingement syndrome of righ t shoulder M75.41 and Adhesive capsulitis of right shoulder M75.01 [facility] [address] [id number] [address] [place] [address] Dec, Impingement syndrome of righ t shoulder M75.41 and Adhesive capsulitis of right shoulder M75.01 [facility] [address] [id number] [address] [place] [phone] Nov, [facility] [address] [id number] [address] [place] [phone] Oct, [facility] [address] [id number] [address] [place] [address] Oct, Impingement syndrome of righ t shoulder M75.41 [facility] [address] [id number] [address] [place] [address] Oct, [facility] [address] [id number] [address] [place] [phone] Aug, Impingement syndrome of righ t shoulder M75.41 [facility] [address] [id number] [address] [place] [phone] Aug, Oral candidiasis B37.0 [facility] [address] [facility]] [id number] [address] [place] [address] Jul, Arthritis M19.90 [facility] [address] [id number] [address] [place] [address] Jul, [facility] [address] [facility]] [id number] [address] [place] [phone] June, Arthritis M19.90 and Mixed h yperlipidemia E78.2 [facility] [address] [facility]] [id number] [address] [place] [address] Apr, Lumbar strain S39.012A [facility] [address] [id number] [address] [place] [address] [id number] Jan, Encounter for dental examina tion Z01.20 and Dental caries K02.9 [facility] [address] [id number] [address] [place] [address] [id number] Jan, Encounter for dental examina tion Z01.20 and Dental examination Z01.20 [facility] [address] [id number] [address] [place] [address] [id number] June, Dental examination V72.2 [facility] [address] [id number] [address] [place] [address] [id number] June, Dental examination V72.2 [facility] [address] [id number] [address] [place] [phone] May, [facility] [address] [id number] [address] [place] [phone] May, [facility] [address] [id number] [address] [place] [phone] Oct, [facility] [address] [id number] [address] [place] [phone] Oct, [facility] [address] [id number] [address] [place] [phone] Oct, [facility] [address] [id number] [address] [place] [phone] Oct, [facility] [address] [id number] [address] [place] [phone] Sep, [facility] [address] [id number] [address] [place] [phone] Sep, [facility] [address] [id number] [address] [place] [phone] Aug, [facility] [address] [id number] [address] [place] [phone] Aug, [facility] [address] [id number] [address] [place] [address], [place] [address] Aug, [facility] [address] [id number] [address] [place] [address], [place] [address] Aug, [facility] [address] [id number] [address] [place] [address], [place] [address] Aug, [facility] [address] [id number] [address] [place] [address], [place] [address] Aug, [facility] [address] [id number] [address] [place] [address], [place] [address] June, [facility] [address] [id number] [address] [place] [address], [place] [address] June, [facility] [address] [id number] [address] [place] [address], [place] [address] Jan, [facility] [address] [id number] [address] [place] [address], [place] [address] Jan, [facility] [address] [id number] [address] [place] [address], [place] [address] Oct, [facility] [address] [id number] [address] [place] [address], [place] [address] Oct, [facility] [address] [id number] [address] [place] [address], [place] [address] May, [facility] [address] [id number] [address] [place] [address], [place] [address] Mar, [facility] [address] [id number] [address] [place] [address], [place] [address] Nov, [facility] [address] [id number] [address] [place] [address], [place] [address] Oct, [facility] [address] [id number] [address] [place] [address], [place] [address] Aug, [facility] [address] [id number] [address] [place] [address], [place] [address] Aug, [facility] [address] [id number] [address] [place] [phone] Aug, [facility] [address] [id number] [address] [place] [phone] Aug, [facility] [address] [id number] [address] [place] [phone] Aug, [facility] [address] [id number] [address] [place] [phone] Aug, [facility] [address] [id number] [address] [place] [address], [place] [address] Jul, [facility] [address] [id number] [address] [place] [address], [place] [address] Jul, [facility] [address] [id number] [address] [place] [address] Jul, [facility] [address] [id number] [address] [place] [address] Jul, [facility] [address] [id number] [address] [place] [phone] Jul, [facility] [address] [id number] [address] [place] [phone] June, [facility] [address] [id number] [address] [place] [phone] June, [facility] [address] [id number] [address] [place] [phone] June, [facility] [address] [id number] [address] [place] [phone] June, [facility] [address] [id number] [address] [place] [phone] June, IMMUNIZATIONS No Known Immunizations SOCIAL HISTORY Never Assessed REASON FOR VISIT MASS F/U WB-MA, Growth on thyroid, Groin pain on the left side, Sore breasts PLAN OF CARE Activity Details Follow Up Will call after scan Reason: VITAL SIGNS Height 74 in 2017-07-06 Weight 296 lbs 2017-07-06 Temperature 98.3 degrees Fahrenheit 2017-07-06 Heart Rate 100 bpm 2017-07-06 Respiratory Rate 20 2017-07-06 Oximetry w/ oxygen @ 2L:97 % 2017-07-06 BMI 38.00 kg/m2 2017-07-06 Blood pressure systolic 104 mmHg 2017-07-06 Blood pressure diastolic 60 mmHg 2017-07-06 MEDICATIONS Medication Instructions Dosage Frequency Start Date End Date Duration S tatus Proventil HFA 108 (90 Base) MCG/ACT Inhalation 4 times a day 2 p uffs as needed 6h Active Oxygen Active Eliquis 5 mg Orally 2 times a day 1 tablet 12h Active ZyrTEC Active Lisinopril 5 MG Orally Once a day 1 tablet 24h Active Digoxin 250 MCG Orally Once a day 1 tablet 24h Active Aspirin 81 81 MG Orally Once a day 1 tablet 24h Active Furosemide Active RESULTS Name Result Date Reference Range Ultrasound : Thyroid 2017-07-12 PROCEDURES No Known procedures INSTRUCTIONS MEDICATIONS ADMINISTERED No Known Medications MEDICAL (GENERAL) HISTORY Type Description Date Medical History heart murmur Medical History cancer-bladder Medical History asthma Medical History bronchitis Surgical History Cancer was removed from bladder 2009 Hospitalization History Pneumonia 1961 Hospitalization History Heart Attack 2017
--- OUTSIDE RECORDS SUMMARY | 2019-05-02 12:59 | XMS REPORT ---
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 Hollow Handle Name Role Phone VICK FRANK Unavailable PROBLEMS Type Condition ICD9-CM Code KPQ18-CO Code Onset Dates Condition S tatus SNOMED Code Problem Arthritis M19.90 Active 3135135 Problem Incomplete tear of right rotator cuff M75.111 Active 5094136 Problem Poor vision H54.7 Active 20505537 3 Problem Obstructive sleep apnea (adult) (pediatric) 327.23 Active 65535865 Problem Mixed hyperlipidemia E78.2 Active 169556184 Problem Multinodular goiter E04.2 Active 455099156 Problem Thyroid nodule E04.1 Active 36011 5005 Problem Persistent atrial fibrillation I48.1 Active 972029357 Problem Reactive depression F32.9 Active 65932364 Problem Atrial fibrillation I48.91 Active 52184853 Problem 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 Active [id number] ALLERGIES No Information ENCOUNTERS Encounter Location Date Diagnosis [facility] [id number] [place] [address] Sep, 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 and BMI 40.0-44.9, adult Z68.41 [facility] [address] [place] [id number] [address] [place] [address] Aug, Cough R05 and Acute combined systolic (congestive) 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 [facility] [address] [facility] [id number] [address] [place] [phone] June, Multinodular goiter E04.2 [facility] [address] [place] [id number] [address] [place] [phone] June, Thyroid nodule E04.1 [facility] [address] [facility] [id number] [address] [place] [address] May, [facility] [address] [facility] [id number] [address] [place] [address] May, Abnormal TSH R94.6 [facility] [address] [id number] [address] [place] [address] [id number] May, Dental examination Z01.20 [facility] [address] [facility] [id number] [address] [place] [address] Apr, Atrial fibrillation I48.91 [place] [address] [address] Apr, [place] [address] [place] [id number] [place] [phone] Apr, Pain of left breast N64.4 an d Encounter for immunization Z23 [facility] [address] [address] Mar, Abnormal TSH R94.6 and Acute combined systolic (congestive) 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 [place] [address] [place] [id number] [address] [place] [address] Mar, [facility] [address] [place] [id number] [address] [place] [address] Feb, [facility] [address] [address] Feb, Persistent atrial fibrillati on I48.1 and Reactive depression F32.9 [facility] [address] [facility] [id number] [address] [place] [address] Feb, [facility] [address] [place] [id number] [address] [place] [address] Feb, [facility] [address] [place] [id number] [address] [place] [address] Jan, [facility] [address] [id number] [address] [place] [address] Jan, Tear of medial meniscus of l eft knee, current, unspecified tear type, subsequent encounter S83.242D [facility] [address] [id number] [address] [place] [address] Dec, [facility] [address] [id number] [address] [place] [phone] Dec, [facility] [address] [id number] [address] [place] [address] Dec, [facility] [address] [id number] [address] [place] [phone] Nov, Shortness of breath R06.02 a nd Acute right-sided thoracic back pain M54.6 [facility] [address] [id number] [address] [place] [address] Nov, Incomplete tear of right rot ator cuff M75.111 and Tear of medial meniscus of left knee, current, unspecified tear type, subsequent encounter S83.242D [facility] [address] [id number] [address] [place] [address] Oct, Osteoarthritis of left knee, unspecified osteoarthritis type M17.12 [facility] [address] [id number] [address] [place] [address] Sep, Pain in right shoulder M25.5 11 [facility] [address] [id number] [address] [place] [address] Sep, Pain in right shoulder M25.5 11 and Poor vision H54.7 [facility] [address] [id number] [address] [place] [address] 15 Sep, 2016 [facility] [address] [id number] [address] [place] [address] 10 Sep, 2016 Arthritis M19.90 and Poor vi javier H54.7 [facility] [address] [id number] [address] [place] [id number] Aug, Dental caries K02.9 [facility] [address] [id number] [address] [place] [phone] Jul, Dental examination Z01.20 [facility] [address] [id number] [address] [place] [address] Jul, [facility] [address] [id number] [address] [place] [address] Jul, [facility] [address] [id number] [address] [place] [address] [id number] June, Dental examination Z01.20 [facility] [address] [id number] [address] [place] [address] [id number] June, Dental caries K02.9 [facility] [address] [id number] [address] [place] [address] [id number] May, Dental examination Z01.20 [facility] [address] [id number] [address] [place] [address] May, [facility] [address] [id number] [address] [place] [address] May, Bronchospasm J98.01 [facility] [address] [id number] [address] [place] [phone] Apr, Bronchospasm J98.01 [facility] [address] [id number] [address] [place] [address] Apr, [facility] [address] [id number] [address] [place] [phone] Apr, Acute non-recurrent maxillar y sinusitis J01.00 and Viral syndrome B34.9 [facility] [address] [id number] [address] [place] [address] Apr, [facility] [address] [id number] [address] [place] [phone] Feb, Impingement syndrome of righ t shoulder M75.41 and Adhesive capsulitis of right shoulder M75.01 [facility] [address] [id number] [address] [place] [address] Dec, Impingement syndrome of righ t shoulder M75.41 and Adhesive capsulitis of right shoulder M75.01 [facility] [address] [id number] [address] [place] [phone] Nov, [facility] [address] [id number] [address] [place] [address] 22 Oct, 2015 [facility] [address] [id number] [address] [place] [phone] 22 Oct, 2015 Impingement syndrome of righ t shoulder M75.41 [facility] [address] [id number] [address] [place] [phone] 13 Oct, 2015 [facility] [address] [id number] [address] [place] [phone] Aug, Impingement syndrome of righ t shoulder M75.41 [facility] [address] [id number] [address] [place] [address] Aug, Oral candidiasis B37.0 [facility] [address] [id number] [address] [place] [phone] Jul, Arthritis M19.90 [facility] [address] [id number] [address] [place] [phone] Jul, [facility] [address] [id number] [address] [place] [address] June, Arthritis M19.90 and Mixed h yperlipidemia E78.2 [facility] [address] [facility] [id number] [address] [place] [address] Apr, Lumbar strain S39.012A [facility] [address] [facility] [id number] [address] [place] [address] [id number] 18 Jan, 2015 Encounter for dental examina tion Z01.20 and Dental caries K02.9 [facility] [address] [facility] [id number] [address] [place] [address] [id number] 15 Jan, 2015 Encounter for dental examina tion Z01.20 and Dental examination Z01.20 [facility] [address] [id number] [address] [place] [address] [id number] June, Dental examination V72.2 [facility] [address] [id number] [address] [place] [address] [id number] June, Dental examination V72.2 [facility] [address] [id number] [address] [place] [phone] May, [facility] [address] [id number] [address] [place] [phone] May, [facility] [address] [id number] [address] [place] [phone] Oct, [facility] [address] [id number] [address] [place] [phone] Oct, [facility] [address] [id number] [address] [place] [phone] Oct, [facility] [address] [id number] [address] [place] [phone] Oct, [facility] [address] [id number] [address] [place] [phone] Sep, [facility] [address] [id number] [address] [place] [phone] Sep, [facility] [address] [id number] [address] [place] [phone] Aug, [facility] [address] [id number] [address] [place] [phone] Aug, [facility] [address] [id number] [address] [place] [phone] Aug, [facility] [address] [id number] [address] [place] [phone] Aug, [facility] [address] [id number] [address] [place] [address], [place] [phone] Aug, [facility] [address] [id number] [address] [place] [address], [place] [phone] Aug, [facility] [address] [id number] [address] [place] [address], [place] [address] June, [facility] [address] [id number] [address] [place] [address], [place] [address] June, [facility] [address] [id number] [address] [place] [address], [place] [address] Jan, [facility] [address] [id number] [address] [place] [address], [place] [phone] Jan, [facility] [address] [id number] [address] [place] [address], [place] [address] Oct, [facility] [address] [id number] [address] [place] [address], [place] [phone] Oct, [facility] [address] [id number] [address] [place] [address], [place] [phone] May, [facility] [address] [id number] [address] [place] [address], [place] [address] Mar, [facility] [address] [id number] [address] [place] [address], [place] [address] Nov, [facility] [address] [id number] [address] [place] [address], [place] [address] Oct, [facility] [address] [id number] [address] [place] [address], [place] [address] Aug, [facility] [address] [id number] [address] [place] [address], [place] [address] Aug, [facility] [address] [id number] [address] [place] [address], [place] [address] Aug, [facility] [address] [id number] [address] [place] [phone] 18 Aug, 2011 [facility] [address] [id number] [address] [place] [phone] 17 Aug, 2011 [facility] [address] [id number] [address] [place] [phone] Aug, [facility] [address] [id number] [address] [place] [address] Jul, [facility] [address] [id number] [address] [place] [phone] Jul, [facility] [address] [id number] [address] [place] [phone] Jul, [facility] [address] [id number] [address] [place] [phone] Jul, [facility] [address] [id number] [address] [place] [phone] Jul, [facility] [address] [id number] [address] [place] [phone] June, [facility] [address] [id number] [address] [place] [phone] June, [facility] [address] [id number] [address] [place] [id number] June, [facility] [address] [id number] [address] [place] [phone] June, [facility] [address] [id number] [address] [place] [phone] June, IMMUNIZATIONS No Known Immunizations SOCIAL HISTORY [...]
--- OUTSIDE RECORDS SUMMARY | 2019-05-02 12:59 | XMS REPORT ---
Author Author Brigido FRANK Organization [facility] Address [address] [place] [address] Care Team Providers Care Study Abroad Advisor Name Role Phone VICK FRANK Unavailable PROBLEMS Type Condition ICD9-CM Code BIN08-JM Code Onset Dates Condition S tatus SNOMED Code Problem Arthritis M19.90 Active 4396839 Problem Incomplete tear of right rotator cuff M75.111 Active 5795635 Problem Poor vision H54.7 Active 12400716 3 Problem Obstructive sleep apnea (adult) (pediatric) 327.23 Active 04488585 Problem Mixed hyperlipidemia E78.2 Active 806684104 Problem Multinodular goiter E04.2 Active 312479012 Problem Thyroid nodule E04.1 Active 04283 5005 Problem Persistent atrial fibrillation I48.1 Active 903958477 Problem Reactive depression F32.9 Active 28682724 Problem Atrial fibrillation I48.91 Active 32245975 Problem 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 Active [id number] ALLERGIES Substance Reaction Event Type Date Status Singulair tongue swelling Drug Allergy Aug, Active Indomethacin Unknown Drug Allergy Aug, Active Clindamycin HCl Unknown Drug Allergy Aug, Active Cayenne Pepper Tongue Swelling Drug Allergy Aug, Active ENCOUNTERS Encounter Location Date Diagnosis [facility] [address] [facility] [id number] [address] [place] [phone] Sep, 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 and BMI 40.0-44.9, adult Z68.41 [facility] [address] [place] [id number] [address] [place] [phone] Aug, Cough R05 and Acute combined systolic (congestive) 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 [facility] [address] [facility] [id number] [address] [place] [phone] June, Multinodular goiter E04.2 [facility] [address] [facility] [id number] [address] [place] [phone] June, Thyroid nodule E04.1 [facility] [address] [facility] [id number] [address] [place] [phone] May, [facility] [address] [address] May, Abnormal TSH R94.6 [facility] [address] [id number] [address] [place] [id number] May, Dental examination Z01.20 [place] [address] [place] [id number] [address] [place] [phone] Apr, Atrial fibrillation I48.91 [place] [address] [address] Apr, [facility] [address] [address] Apr, Pain of left breast N64.4 an d Encounter for immunization Z23 [place] [address] [address] Mar, Abnormal TSH R94.6 and Acute combined systolic (congestive) 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 [facility] [address] [place] [id number] [address] [place] [address] Mar, [facility] [address] [place] [id number] [address] [place] [phone] Feb, [facility] [address] [address] Feb, Persistent atrial fibrillati on I48.1 and Reactive depression F32.9 [facility] [address] [place] [id number] [address] [place] [phone] Feb, [facility] [address] [place] [address] Feb, [facility] [address] [id number] [address] [place] [phone] Jan, [facility] [address] [id number] [address] [place] [address] Jan, Tear of medial meniscus of l eft knee, current, unspecified tear type, subsequent encounter S83.242D [facility] [address] [id number] [address] [place] [address] Dec, [facility] [address] [id number] [address] [place] [phone] Dec, [facility] [address] [id number] [address] [place] [phone] Dec, [facility] [address] [id number] [address] [place] [phone] Nov, Shortness of breath R06.02 a nd Acute right-sided thoracic back pain M54.6 [facility] [address] [id number] [address] [place] [address] Nov, Incomplete tear of right rot ator cuff M75.111 and Tear of medial meniscus of left knee, current, unspecified tear type, subsequent encounter S83.242D [facility] [address] [id number] [address] [place] [phone] Oct, Osteoarthritis of left knee, unspecified osteoarthritis type M17.12 [facility] [address] [id number] [address] [place] [phone] Sep, Pain in right shoulder M25.5 11 [facility] [address] [id number] [address] [place] [address] Sep, Pain in right shoulder M25.5 11 and Poor vision H54.7 [facility] [address] [id number] [address] [place] [phone] Sep, [facility] [address] [id number] [address] [place] [address] Sep, Arthritis M19.90 and Poor vi javier H54.7 [facility] [address] [id number] [address] [place] [id number] Aug, Dental caries K02.9 [facility] [address] [id number] [address] [place] [id number] Jul, Dental examination Z01.20 [facility] [address] [id number] [address] [place] [phone] Jul, [facility] [address] [id number] [address] [place] [phone] Jul, [facility] [address] [id number] [address] [place] [address] [id number] June, Dental examination Z01.20 [facility] [address] [id number] [address] [place] [id number] June, Dental caries K02.9 [facility] [address] [id number] [address] [place] [id number] May, Dental examination Z01.20 [facility] [address] [id number] [address] [place] [phone] May, [facility] [address] [id number] [address] [place] [address] May, Bronchospasm J98.01 [facility] [address] [id number] [address] [place] [address] Apr, Bronchospasm J98.01 [facility] [address] [id number] [address] [place] [phone] Apr, [facility] [address] [facility] [id number] [address] [place] [address] Apr, Acute non-recurrent maxillar y sinusitis J01.00 and Viral syndrome B34.9 [facility] [address] [id number] [address] [place] [phone] Apr, [facility] [address] [id number] [address] [place] [phone] Feb, Impingement syndrome of righ t shoulder M75.41 and Adhesive capsulitis of right shoulder M75.01 [facility] [address] [id number] [address] [place] [address] Dec, Impingement syndrome of righ t shoulder M75.41 and Adhesive capsulitis of right shoulder M75.01 [facility] [address] [id number] [address] [place] [phone] Nov, [facility] [address] [id number] [address] [place] [address] Oct, [facility] [address] [id number] [address] [place] [phone] Oct, Impingement syndrome of righ t shoulder M75.41 [facility] [address] [id number] [address] [place] [phone] Oct, [facility] [address] [id number] [address] [place] [phone] Aug, Impingement syndrome of righ t shoulder M75.41 [facility] [address] [id number] [address] [place] [address] Aug, Oral candidiasis B37.0 [facility] [address] [facility] [id number] [address] [place] [address] Jul, Arthritis M19.90 [facility] [address] [id number] [address] [place] [phone] Jul, [facility] [address] [facility] [id number] [address] [place] [address] June, Arthritis M19.90 and Mixed h yperlipidemia E78.2 [facility] [address] [facility] [id number] [address] [place] [address] Apr, Lumbar strain S39.012A [facility] [address] [id number] [address] [place] [id number] Jan, Encounter for dental examina tion Z01.20 and Dental caries K02.9 [facility] [address] [id number] [address] [place] [address] [id number] Jan, Encounter for dental examina tion Z01.20 and Dental examination Z01.20 [facility] [address] [id number] [address] [place] [address] [id number] June, Dental examination V72.2 [facility] [address] [id number] [address] [place] [id number] June, Dental examination V72.2 [facility] [address] [id number] [address] [place] [phone] May, [facility] [address] [id number] [address] [place] [phone] May, [facility] [address] [id number] [address] [place] [id number] Oct, [facility] [address] [id number] [address] [place] [phone] Oct, [facility] [address] [id number] [address] [place] [phone] Oct, [facility] [address] [id number] [address] [place] [phone] Oct, [facility] [address] [id number] [address] [place] [phone] Sep, [facility] [address] [id number] [address] [place] [phone] Sep, [facility] [address] [id number] [address] [place] [phone] Aug, [facility] [address] [id number] [address] [place] [phone] Aug, [facility] [address] [id number] [address] [place] [address], [place] [address] Aug, [facility] [address] [id number] [address] [place] [address], [place] [address] Aug, [facility] [address] [id number] [address] [place] [address], [place] [id number] Aug, [facility] [address] [id number] [address] [place] [address], [place] [address] Aug, [facility] [address] [id number] [address] [place] [address], [place] [address] June, [facility] [address] [id number] [address] [place] [address], [place] [address] June, [facility] [address] [id number] [address] [place] [address], [place] [address] Jan, [facility] [address] [id number] [address] [place] [address], [place] [address] Jan, [facility] [address] [id number] [address] [place] [address], [place] [address] Oct, [facility] [address] [id number] [address] [place] [address], [place] [address] Oct, [facility] [address] [id number] [address] [place] [address], [place] [address] May, [facility] [address] [id number] [address] [place] [address], [place] [address] Mar, [facility] [address] [id number] [address] [place] [address], [place] [address] Nov, [facility] [address] [id number] [address] [place] [address], [place] [address] Oct, [facility] [address] [id number] [address] [place] [address], [place] [address] Aug, [facility] [address] [id number] [address] [place] [address], [place] [address] Aug, [facility] [address] [id number] [address] [place] [phone] Aug, [facility] [address] [id number] [address] [place] [phone] Aug, [facility] [address] [id number] [address] [place] [phone] 17 Aug, 2011 [facility] [address] [id number] [address] [place] [phone] Aug, [facility] [address] [id number] [address] [place] [address], [place] [address] Jul, [facility] [address] [id number] [address] [place] [address], [place] [address] Jul, [facility] [address] [id number] [address] [place] [phone] Jul, [facility] [address] [id number] [address] [place] [phone] Jul, [facility] [address] [id number] [address] [place] [phone] Jul, [facility] [address] [id number] [address] [place] [phone] June, [facility] [address] [id number] [address] [place] [phone] June, [facility] [address] [id number] [address] [place] [phone] June, [facility] [address] [id number] [address] [place] [phone] June, [facility] [address] [id number] [address] [place] [phone] June, IMMUNIZATIONS No Known Immunizations SOCIAL HISTORY Never Assessed REASON FOR VISIT Pain in Breast mainly in the morning-Jumana ROSE PLAN OF CARE Activity Details Follow Up 4 Weeks Reason: VITAL SIGNS Height 74 in 2017-08-28 Weight 307.0 lbs 2017-08-28 Temperature 98.3 degrees Fahrenheit 2017-08-28 Heart Rate 108 bpm 2017-08-28 Respiratory Rate 22 2017-08-28 Oximetry w/ oxygen @ 2L:96 % 2017-08-28 BMI 39.41 kg/m2 2017-08-28 Blood pressure systolic 122 mmHg 2017-08-28 Blood pressure diastolic 64 mmHg 2017-08-28 MEDICATIONS Medication Instructions Dosage Frequency Start Date End Date Duration S tatus ZyrTEC Active Aspirin 81 81 MG Orally Once a day 1 tablet 24h Active Proventil HFA 108 (90 Base) MCG/ACT Inhalation 4 times a day 2 p uffs as needed 6h Active Digoxin 250 MCG Orally Once a day 1 tablet 24h Active Metoprolol Succinate ER 50 MG Orally Once a day 1 tablet 24h Active Lisinopril 5 MG Orally Once a day 1 tablet 24h Active Eliquis 5 mg Orally 2 times a day 1 tablet 12h Active Flonase Active Atorvastatin Calcium 40 mg by oral route Once a day 1 tablet 24h Active Oxygen Active Furosemide 20 mg by oral route Once a day 1 tablet 24h Active Losartan Potassium 25 MG Orally Once a day 1 tablet 24h Aug, 30 day(s) Active RESULTS No Results PROCEDURES No Known procedures INSTRUCTIONS MEDICATIONS ADMINISTERED No Known Medications MEDICAL (GENERAL) HISTORY Type Description Date Medical History heart murmur Medical History cancer-bladder Medical History asthma Medical History bronchitis Surgical History Cancer was removed from bladder 2009 Hospitalization History Pneumonia 1961 Hospitalization History Heart Attack 2017
--- OUTSIDE RECORDS SUMMARY | 2019-05-02 12:59 | XMS REPORT ---
Author Author Brigido FRANK Organization [facility] Address [address] [place] [address] Care Team Providers Care Bit Grinder Name Role Phone IVCK FRANK Unavailable PROBLEMS Type Condition ICD9-CM Code LRI25-PS Code Onset Dates Condition S tatus SNOMED Code Problem Arthritis M19.90 Active 5669470 Problem Incomplete tear of right rotator cuff M75.111 Active 4456891 Problem Poor vision H54.7 Active 64542701 3 Problem Obstructive sleep apnea (adult) (pediatric) 327.23 Active 90766505 Problem Mixed hyperlipidemia E78.2 Active 745662433 Problem Multinodular goiter E04.2 Active 570655352 Problem Thyroid nodule E04.1 Active 33325 5005 Problem Persistent atrial fibrillation I48.1 Active 250791351 Problem Reactive depression F32.9 Active 40463241 Problem Atrial fibrillation I48.91 Active 25847087 Problem 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 Active [id number] ALLERGIES No Information ENCOUNTERS Encounter Location Date Diagnosis [place] [address] [facility] [id number] [address] [place] [phone] Sep, [facility] [address] [facility] [id number] [address] [place] [phone] Aug, Cough R05 and Acute combined systolic (congestive) 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 [facility] [address] [facility] [id number] [address] [place] [phone] June, Multinodular goiter E04.2 [facility] [address] [facility] [id number] [address] [place] [phone] June, Thyroid nodule E04.1 [facility] [address] [facility] [id number] [address] [place] [phone] May, [facility] [address] [facility] [id number] [address] [place] [phone] May, Abnormal TSH R94.6 [facility] [address] [id number] [address] [place] [address] [phone] May, Dental examination Z01.20 [facility] [address] [facility] [id number] [address] [place] [phone] Apr, Atrial fibrillation I48.91 [facility] [address] [facility] [id number] [address] [place] [phone] Apr, [facility] [address] [facility] [id number] [address] [place] [phone] Apr, Pain of left breast N64.4 an d Encounter for immunization Z23 [facility] [address] [facility] [id number] [address] [place] [phone] Mar, Abnormal TSH R94.6 and Acute combined systolic (congestive) 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 [facility] [address] [facility] [id number] [address] [place] [phone] Mar, [facility] [address] [facility] [id number] [address] [place] [phone] Feb, [facility] [address] [facility] [id number] [address] [place] [phone] Feb, Persistent atrial fibrillati on I48.1 and Reactive depression F32.9 [facility] [address] [facility] [id number] [address] [place] [phone] Feb, [facility] [address] [facility] [id number] [address] [place] [phone] Feb, [facility] [address] [facility] [id number] [address] [place] [phone] Jan, [facility] [address] [facility] [id number] [address] [place] [phone] Jan, Tear of medial meniscus of l eft knee, current, unspecified tear type, subsequent encounter S83.242D [facility] [address] [id number] [address] [place] [phone] 30 Dec, 2016 [facility] [address] [id number] [address] [place] [phone] 06 Dec, 2016 [facility] [address] [id number] [address] [place] [address] Dec, [facility] [address] [id number] [address] [place] [phone] Nov, Shortness of breath R06.02 a nd Acute right-sided thoracic back pain M54.6 [facility] [address] [id number] [address] [place] [phone] 19 Nov, 2016 Incomplete tear of right rot ator cuff M75.111 and Tear of medial meniscus of left knee, current, unspecified tear type, subsequent encounter S83.242D [facility] [address] [id number] [address] [place] [phone] 14 Oct, 2016 Osteoarthritis of left knee, unspecified osteoarthritis type M17.12 [facility] [address] [id number] [address] [place] [phone] 17 Sep, 2016 Pain in right shoulder M25.5 11 [facility] [address] [id number] [address] [place] [phone] 17 Sep, 2016 Pain in right shoulder M25.5 11 and Poor vision H54.7 [facility] [address] [id number] [address] [place] [phone] 15 Sep, 2016 [facility] [address] [id number] [address] [place] [phone] 10 Sep, 2016 Arthritis M19.90 and Poor vi javier H54.7 [facility] [address] [id number] [address] [place] [address] [id number] Aug, Dental caries K02.9 [facility] [address] [id number] [address] [place] [id number] Jul, Dental examination Z01.20 [facility] [address] [id number] [address] [place] [phone] Jul, [facility] [address] [id number] [address] [place] [phone] Jul, [facility] [address] [id number] [address] [place] [id number] June, Dental examination Z01.20 [facility] [address] [id number] [address] [place] [address] [id number] June, Dental caries K02.9 [facility] [address] [id number] [address] [place] [id number] May, Dental examination Z01.20 [facility] [address] [id number] [address] [place] [phone] May, [facility] [address] [id number] [address] [place] [phone] May, Bronchospasm J98.01 [facility] [address] [id number] [address] [place] [phone] Apr, Bronchospasm J98.01 [facility] [address] [id number] [address] [place] [phone] Apr, [facility] [address] [id number] [address] [place] [phone] Apr, Acute non-recurrent maxillar y sinusitis J01.00 and Viral syndrome B34.9 [facility] [address] [id number] [address] [place] [phone] Apr, [facility] [address] [id number] [address] [place] [phone] Feb, Impingement syndrome of righ t shoulder M75.41 and Adhesive capsulitis of right shoulder M75.01 [facility] [address] [id number] [address] [place] [phone] Dec, Impingement syndrome of righ t shoulder M75.41 and Adhesive capsulitis of right shoulder M75.01 [facility] [address] [id number] [address] [place] [phone] Nov, [facility] [address] [id number] [address] [place] [phone] Oct, [facility] [address] [id number] [address] [place] [phone] Oct, Impingement syndrome of righ t shoulder M75.41 [facility] [address] [id number] [address] [place] [phone] 13 Oct, 2015 [facility] [address] [id number] [address] [place] [phone] Aug, Impingement syndrome of righ t shoulder M75.41 [facility] [address] [id number] [address] [place] [phone] Aug, Oral candidiasis B37.0 [facility] [address] [id number] [address] [place] [phone] Jul, Arthritis M19.90 [facility] [address] [id number] [address] [place] [phone] Jul, [facility] [address] [id number] [address] [place] [phone] June, Arthritis M19.90 and Mixed h yperlipidemia E78.2 [facility] [address] [id number] [address] [place] [address] Apr, Lumbar strain S39.012A [facility] [address] [id number] [address] [place] [address] [id number] Jan, Encounter for dental examina tion Z01.20 and Dental caries K02.9 [facility] [address] [id number] [address] [place] [address] [id number] Jan, Encounter for dental examina tion Z01.20 and Dental examination Z01.20 [facility] [address] [id number] [place] [id number] June, Dental examination V72.2 [facility] [address] [id number] [address] [place] [id number] June, Dental examination V72.2 [facility] [address] [id number] [address] [place] [phone] 14 May, 2014 [facility] [address] [id number] [address] [place] [phone] May, [facility] [address] [id number] [address] [place] [address], [place] [address] Oct, [facility] [address] [id number] [address] [place] [phone] Oct, [facility] [address] [id number] [address] [place] [address], [place] [address] Oct, [facility] [address] [id number] [address] [place] [phone] Oct, [facility] [address] [id number] [address] [place] [address], [place] [address] Sep, [facility] [address] [id number] [address] [place] [phone] Sep, [facility] [address] [id number] [address] [place] [address], [place] [address] Aug, [facility] [address] [id number] [address] [place] [phone] Aug, [facility] [address] [id number] [address] [place] [phone] Aug, [facility] [address] [id number] [address] [place] [phone] Aug, [facility] [address] [id number] [address] [place] [phone] Aug, [facility] [place] [facility] [address] [id number] [address] [place] [address], [place] [address] Aug, [facility] [address] [id number] [address] [place] [address], [place] [address] June, [facility] [address] [id number] [address] [place] [address], [place] [address] June, [facility] [address] [id number] [address] [place] [address], [place] [address] Jan, [facility] [address] [id number] [address] [place] [address], [place] [address] Jan, [facility] [address] [id number] [address] [place] [address], [place] [address] Oct, [facility] [address] [id number] [address] [place] [address], [place] [address] Oct, [facility] [address] [id number] [address] [place] [address], [place] [address] May, [facility] [address] [id number] [address] [place] [address], [place] [address] Mar, [facility] [address] [id number] [address] [place] [address], [place] [address] Nov, [facility] [address] [id number] [address] [place] [address], [place] [address] Oct, [facility] [address] [id number] [address] [place] [address], [place] [address] Aug, [facility] [address] [id number] [address] [place] [address], [place] [address] Aug, [facility] [address] [id number] [address] [place] [address], [place] [address] Aug, [facility] [address] [id number] [address] [place] [address], [place] [address] Aug, [facility] [address] [id number] [address] [place] [phone] 17 Aug, 2011 [facility] [address] [id number] [address] [place] [phone] Aug, [facility] [address] [id number] [address] [place] [phone] Jul, [facility] [address] [id number] [address] [place] [phone] Jul, [facility] [address] [id number] [address] [place] [phone] Jul, [facility] [address] [id number] [address] [place] [phone] Jul, [facility] [address] [id number] [address] [place] [phone] Jul, [facility] [address] [id number] [address] [place] [phone] June, [facility] [address] [id number] [address] [place] [phone] June, [facility] [address] [id number] [address] [place] [phone] June, [facility] [address] [id number] [address] [place] [phone] June, [facility] [address] [id number] [address] [place] [phone] June, IMMUNIZATIONS No Known Immunizations SOCIAL HISTORY [...] removed from bladder 2009 Hospitalization History Pneumonia 196 Hospitalization History Heart Attack 2017
--- OUTSIDE RECORDS SUMMARY | 2019-05-02 12:59 | XMS REPORT ---
Author Author Brigido FRANK Organization [facility] Address [address] [place] [address] Care Team Providers Care Pipe Bender Name Role Phone VICK FRANK Unavailable PROBLEMS Type Condition ICD9-CM Code RJQ65-SL Code Onset Dates Condition S tatus SNOMED Code Problem Arthritis M19.90 Active 4271653 Problem Incomplete tear of right rotator cuff M75.111 Active 5287822 Problem Poor vision H54.7 Active 89734107 3 Problem Obstructive sleep apnea (adult) (pediatric) 327.23 Active 10744506 Problem Mixed hyperlipidemia E78.2 Active 722599457 Problem Multinodular goiter E04.2 Active 466065277 Problem Thyroid nodule E04.1 Active 17771 5005 Problem Persistent atrial fibrillation I48.1 Active 345271567 Problem Reactive depression F32.9 Active 67553256 Problem Atrial fibrillation I48.91 Active 12837902 Problem 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 Active [id number] ALLERGIES Substance Reaction Event Type Date Status Singulair tongue swelling Drug Allergy Sep, Active Indomethacin Unknown Drug Allergy Sep, Active Clindamycin HCl Unknown Drug Allergy Sep, Active Cayenne Pepper Tongue Swelling Drug Allergy Sep, Active ENCOUNTERS Encounter Location Date Diagnosis [facility] [address] [facility] [id number] [address] [place] [phone] Sep, 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 and BMI 40.0-44.9, adult Z68.41 [facility] [address] [place] [id number] [address] [place] [address] Aug, Cough R05 and Acute combined systolic (congestive) 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 [facility] [address] [facility] [id number] [address] [place] [address] June, Multinodular goiter E04.2 [facility] [address] [facility] [id number] [address] [place] [phone] June, Thyroid nodule E04.1 [facility] [address] [facility] [id number] [address] [place] [address] May, [facility] [address] [address] May, Abnormal TSH R94.6 [facility] [address] [id number] [address] [place] [id number] May, Dental examination Z01.20 [place] [address] [place] [id number] [address] [place] [address] Apr, Atrial fibrillation I48.91 [place] [address] [address] Apr, [facility] [address] [address] Apr, Pain of left breast N64.4 an d Encounter for immunization Z23 [place] [address] [id number] Mar, Abnormal TSH R94.6 and Acute combined systolic (congestive) 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 [facility] [address] [place] [id number] [address] [place] [address] Mar, [facility] [address] [place] [id number] [address] [place] [phone] Feb, [facility] [address] [address] Feb, Persistent atrial fibrillati on I48.1 and Reactive depression F32.9 [facility] [address] [place] [id number] [address] [place] [address] Feb, [facility] [address] [place] [address] Feb, [facility] [address] [id number] [address] [place] [phone] Jan, [facility] [address] [id number] [address] [place] [address] Jan, Tear of medial meniscus of l eft knee, current, unspecified tear type, subsequent encounter S83.242D [facility] [address] [id number] [address] [place] [phone] Dec, [facility] [address] [id number] [address] [place] [phone] Dec, [facility] [address] [id number] [address] [place] [address] Dec, [facility] [address] [id number] [address] [place] [phone] Nov, Shortness of breath R06.02 a nd Acute right-sided thoracic back pain M54.6 [facility] [address] [id number] [address] [place] [address] Nov, Incomplete tear of right rot ator cuff M75.111 and Tear of medial meniscus of left knee, current, unspecified tear type, subsequent encounter S83.242D [facility] [address] [id number] [address] [place] [address] Oct, Osteoarthritis of left knee, unspecified osteoarthritis type M17.12 [facility] [address] [id number] [address] [place] [phone] Sep, Pain in right shoulder M25.5 11 [facility] [address] [id number] [address] [place] [address] Sep, Pain in right shoulder M25.5 11 and Poor vision H54.7 [facility] [address] [id number] [address] [place] [address] Sep, [facility] [address] [id number] [address] [place] [address] Sep, Arthritis M19.90 and Poor vi javier H54.7 [facility] [address] [id number] [address] [place] [id number] Aug, Dental caries K02.9 [facility] [address] [id number] [address] [place] [address] [id number] Jul, Dental examination Z01.20 [facility] [address] [id number] [address] [place] [phone] Jul, [facility] [address] [id number] [address] [place] [phone] Jul, [facility] [address] [id number] [address] [place] [address] [id number] June, Dental examination Z01.20 [facility] [address] [id number] [address] [place] [id number] June, Dental caries K02.9 [facility] [address] [id number] [address] [place] [address] [id number] May, Dental examination Z01.20 [facility] [address] [id number] [address] [place] [phone] May, [facility] [address] [id number] [address] [place] [address] May, Bronchospasm J98.01 [facility] [address] [id number] [address] [place] [address] Apr, Bronchospasm J98.01 [facility] [address] [id number] [address] [place] [phone] Apr, [facility] [address] [facility] [id number] [address] [place] [id number] Apr, Acute non-recurrent maxillar y sinusitis J01.00 and Viral syndrome B34.9 [facility] [address] [id number] [address] [place] [address] Apr, [facility] [address] [id number] [address] [place] [phone] Feb, Impingement syndrome of righ t shoulder M75.41 and Adhesive capsulitis of right shoulder M75.01 [facility] [address] [id number] [address] [place] [address] Dec, Impingement syndrome of righ t shoulder M75.41 and Adhesive capsulitis of right shoulder M75.01 [facility] [address] [id number] [address] [place] [phone] Nov, [facility] [address] [id number] [address] [place] [phone] Oct, [facility] [address] [id number] [address] [place] [phone] Oct, Impingement syndrome of righ t shoulder M75.41 [facility] [address] [id number] [address] [place] [address] Oct, [facility] [address] [id number] [address] [place] [address] Aug, Impingement syndrome of righ t shoulder M75.41 [facility] [address] [id number] [address] [place] [phone] Aug, Oral candidiasis B37.0 [facility] [address] [facility] [id number] [address] [place] [address] Jul, Arthritis M19.90 [facility] [address] [id number] [address] [place] [id number] Jul, [facility] [address] [facility] [id number] [address] [place] [id number] June, Arthritis M19.90 and Mixed h yperlipidemia E78.2 [facility] [address] [facility] [id number] [address] [place] [address] Apr, Lumbar strain S39.012A [facility] [address] [id number] [address] [place] [address] [id number] Jan, Encounter for dental examina tion Z01.20 and Dental caries K02.9 [facility] [address] [id number] [address] [place] [address] [id number] Jan, Encounter for dental examina tion Z01.20 and Dental examination Z01.20 [facility] [address] [id number] [address] [place] [address] [id number] June, Dental examination V72.2 [facility] [address] [id number] [address] [place] [address] [id number] June, Dental examination V72.2 [facility] [address] [id number] [address] [place] [phone] May, [facility] [address] [id number] [address] [place] [phone] May, [facility] [address] [id number] [address] [place] [phone] Oct, [facility] [address] [id number] [address] [place] [phone] Oct, [facility] [address] [id number] [address] [place] [phone] Oct, [facility] [address] [id number] [address] [place] [phone] Oct, [facility] [address] [id number] [address] [place] [phone] Sep, [facility] [address] [id number] [address] [place] [phone] Sep, [facility] [address] [id number] [address] [place] [phone] Aug, [facility] [address] [id number] [address] [place] [phone] Aug, [facility] [address] [id number] [address] [place] [address], [place] [phone] Aug, [facility] [address] [id number] [address] [place] [address], [place] [id number] Aug, [facility] [address] [id number] [address] [place] [address], [place] [id number] Aug, [facility] [address] [id number] [address] [place] [address], [place] [address] Aug, [facility] [address] [id number] [address] [place] [address], [place] [id number] June, [facility] [address] [id number] [address] [place] [address], [place] [id number] June, [facility] [address] [id number] [address] [place] [address], [place] [id number] Jan, [facility] [address] [id number] [address] [place] [address], [place] [id number] Jan, [facility] [address] [id number] [address] [place] [address], [place] [address] Oct, [facility] [address] [id number] [address] [place] [address], [place] [id number] Oct, [facility] [address] [id number] [address] [place] [address], [place] [address] May, [facility] [address] [id number] [address] [place] [address], [place] [id number] Mar, [facility] [address] [id number] [address] [place] [address], [place] [address] Nov, [facility] [address] [id number] [address] [place] [address], [place] [id number] Oct, [facility] [address] [id number] [address] [place] [address], [place] [id number] Aug, [facility] [address] [id number] [address] [place] [address], [place] [address] Aug, [facility] [address] [id number] [address] [place] [phone] Aug, [facility] [address] [id number] [address] [place] [phone] Aug, [facility] [address] [id number] [address] [place] [address], [place] [id number] 17 Aug, 2011 [facility] [address] [id number] [address] [place] [address], [place] [address] Aug, [facility] [address] [id number] [address] [place] [address], [place] [address] Jul, [facility] [address] [id number] [address] [place] [address], [place] [address] Jul, [facility] [address] [id number] [address] [place] [address], [place] [address] Jul, [facility] [address] [id number] [address] [place] [id number] Jul, [facility] [address] [id number] [address] [place] [phone] Jul, [facility] [address] [id number] [address] [place] [phone] June, [facility] [address] [id number] [address] [place] [phone] June, [facility] [address] [id number] [address] [place] [phone] June, [facility] [address] [id number] [address] [place] [phone] June, [facility] [address] [id number] [address] [place] [id number] June, IMMUNIZATIONS No Known Immunizations SOCIAL HISTORY Never Assessed REASON FOR VISIT Cough follow up -ROSE hooks PLAN OF CARE Activity Details Follow Up 3 Months Reason: VITAL SIGNS Height 74 in 2017-09-25 Weight 315 lbs 2017-09-25 Temperature 97.6 degrees Fahrenheit 2017-09-25 Heart Rate 101 bpm 2017-09-25 Respiratory Rate 22 2017-09-25 Oximetry w/ oxygen:95 % 2017-09-25 BMI 40.44 kg/m2 2017-09-25 Blood pressure systolic 116 mmHg 2017-09-25 Blood pressure diastolic 70 mmHg 2017-09-25 MEDICATIONS Medication Instructions Dosage Frequency Start Date End Date Duration S tatus Oxygen Active Metoprolol Succinate ER 50 MG Orally Once a day 1 tablet 24h Active Furosemide 20 mg by oral route Once a day 1 tablet 24h Active Atorvastatin Calcium 40 mg by oral route Once a day 1 tablet 24h Active Proventil HFA 108 (90 Base) MCG/ACT Inhalation 4 times a day 2 p uffs as needed 6h Active ZyrTEC Active Eliquis 5 mg Orally 2 times a day 1 tablet 12h Active Losartan Potassium 25 MG Orally Once a day 1 tablet 24h 30 Active Aspirin 81 81 MG Orally Once a day 1 tablet 24h Active Digoxin 250 MCG Orally Once a day 1 tablet 24h Active Flonase Active RESULTS No Results PROCEDURES No Known procedures INSTRUCTIONS MEDICATIONS ADMINISTERED No Known Medications MEDICAL (GENERAL) HISTORY Type Description Date Medical History heart murmur Medical History cancer-bladder Medical History asthma Medical History bronchitis Surgical History Cancer was removed from bladder 2009 Hospitalization History Pneumonia 1961 Hospitalization History Heart Attack 2017
--- OUTSIDE RECORDS SUMMARY | 2019-05-02 13:00 | XMS REPORT ---
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 Active 426079957057231 Problem Incomplete tear of right rotator cuff M75.111 Active 3743854 Problem Poor vision H54.7 Active 70789410 3 Problem Reactive depression F32.9 Active 38804365 Problem Persistent atrial fibrillation I48.1 Active 648445752 ALLERGIES Substance Reaction Event Type Date Status Indomethacin Unknown Drug Allergy Nov, Active Clindamycin HCl Unknown Drug Allergy Nov, Active Cayenne Pepper Tongue Swelling Drug Allergy Nov, Active ENCOUNTERS Encounter Location Date Diagnosis [facility] [address] [facility] [id number] [address] [place] [phone] June, [facility] [address] [facility] [id number] [address] [place] [phone] May, [facility] [address] [facility] [id number] [address] [place] [phone] May, Abnormal TSH R94.6 [facility] [address] [id number] [address] [place] [id number] May, Dental examination Z01.20 [facility] [address] [facility] [id number] [address] [place] [phone] Apr, Atrial fibrillation I48.91 [facility] [address] [facility] [id number] [address] [place] [phone] 15 Apr, 2017 [facility] [address] [facility] [id number] [address] [place] [phone] Apr, Pain of left breast N64.4 an d Encounter for immunization Z23 [facility] [address] [facility] [id number] [address] [place] [phone] Mar, Abnormal TSH R94.6 and Acute combined systolic (congestive) 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 [facility] [address] [facility] [id number] [address] [place] [phone] Mar, [facility] [address] [facility] [id number] [address] [place] [phone] Feb, [facility] [address] [place] [id number] [address] [place] [phone] Feb, Persistent atrial fibrillati on I48.1 and Reactive depression F32.9 [facility] [address] [place] [id number] [address] [place] [phone] Feb, [facility] [address] [facility] [id number] [address] [place] [phone] Feb, [facility] [address] [place] [id number] [address] [place] [phone] Jan, [facility] [address] [place] [id number] [address] [place] [phone] Jan, Tear of medial meniscus of l eft knee, current, unspecified tear type, subsequent encounter S83.242D [facility] [address] [facility] [id number] [address] [place] [phone] Dec, [facility] [address] [facility] [id number] [address] [place] [phone] Dec, [facility] [address] [place] [id number] [address] [place] [phone] Dec, [facility] [address] [id number] [address] [place] [phone] Nov, Shortness of breath R06.02 a nd Acute right-sided thoracic back pain M54.6 [facility] [address] [id number] [address] [place] [phone] Nov, Incomplete tear of right rot ator cuff M75.111 and Tear of medial meniscus of left knee, current, unspecified tear type, subsequent encounter S83.242D [facility] [address] [id number] [address] [place] [phone] 14 Oct, 2016 Osteoarthritis of left knee, unspecified osteoarthritis type M17.12 [facility] [address] [id number] [address] [place] [phone] 17 Sep, 2016 Pain in right shoulder M25.5 [address] [place] [id number] [id number] [address] [place] [phone] Sep, Pain in right shoulder M25.5 11 and Poor vision H54.7 [facility] [address] [id number] [address] [place] [phone] Sep, [facility] [address] [id number] [address] [place] [phone] Sep, Arthritis M19.90 and Poor vi javier H54.7 [facility] [address] [id number] [address] [place] [id number] Aug, Dental caries K02.9 [facility] [address] [id number] [address] [place] [id number] Jul, Dental examination Z01.20 [facility] [address] [id number] [address] [place] [phone] Jul, [facility] [address] [id number] [address] [place] [phone] Jul, [facility] [address] [id number] [address] [place] [id number] June, Dental examination Z01.20 [facility] [address] [id number] [place] [id number] June, Dental caries K02.9 [facility] [address] [id number] [address] [place] [address] [id number] May, Dental examination Z01.20 [facility] [address] [id number] [address] [place] [id number] May, [facility] [address] [id number] [address] [place] [phone] May, Bronchospasm J98.01 [facility] [address] [id number] [address] [place] [phone] Apr, Bronchospasm J98.01 [facility] [address] [id number] [address] [place] [phone] Apr, [facility] [address] [id number] [address] [place] [phone] Apr, Acute non-recurrent maxillar y sinusitis J01.00 and Viral syndrome B34.9 [facility] [address] [id number] [address] [place] [phone] Apr, [facility] [address] [id number] [address] [place] [phone] Feb, Impingement syndrome of righ t shoulder M75.41 and Adhesive capsulitis of right shoulder M75.01 [facility] [address] [id number] [address] [place] [phone] Dec, Impingement syndrome of righ t shoulder M75.41 and Adhesive capsulitis of right shoulder M75.01 [facility] [address] [id number] [address] [place] [phone] Nov, [facility] [address] [id number] [address] [place] [phone] Oct, [facility] [address] [id number] [address] [place] [phone] Oct, Impingement syndrome of righ t shoulder M75.41 [facility] [address] [id number] [address] [place] [phone] Oct, [facility] [address] [id number] [address] [place] [id number] Aug, Impingement syndrome of righ t shoulder M75.41 [facility] [address] [id number] [address] [place] [phone] Aug, Oral candidiasis B37.0 [facility] [address] [id number] [address] [place] [phone] Jul, Arthritis M19.90 [facility] [address] [id number] [address] [place] [phone] Jul, [facility] [address] [id number] [address] [place] [phone] June, Arthritis M19.90 and Mixed h yperlipidemia E78.2 [facility] [address] [id number] [address] [place] [phone] Apr, Lumbar strain S39.012A [facility] [address] [id number] [address] [place] [id number] Jan, Encounter for dental examina tion Z01.20 and Dental caries K02.9 [facility] [address] [id number] [address] [place] [address] [id number] Jan, Encounter for dental examina tion Z01.20 and Dental examination Z01.20 [facility] [address] [id number] [address] [place] [address] [id number] June, Dental examination V72.2 [facility] [address] [id number] [address] [place] [address] [id number] June, Dental examination V72.2 [facility] [address] [id number] [address] [place] [phone] May, [facility] [address] [id number] [facility] [place] [phone] May, [facility] [address] [id number] [facility] [place] [address] Oct, [facility] [address] [id number] [address] [place] [address], [place] [phone] Oct, [facility] [address] [id number] [address] [place] [address], [place] [phone] Oct, [facility] [address] [id number] [address] [place] [address], [place] [phone] Oct, [facility] [address] [id number] [address] [place] [address], [place] [phone] Sep, [facility] [address] [id number] [address] [place] [address], [place] [phone] Sep, [facility] [address] [id number] [address] [place] [address], [place] [phone] Aug, [facility] [address] [id number] [address] [place] [address], [place] [phone] Aug, [facility] [address] [id number] [address] [place] [address], [place] [phone] Aug, [facility] [address] [id number] [address] [place] [address], [place] [phone] Aug, [facility] [address] [id number] [address] [place] [address], [place] [address] Aug, [facility] [address] [id number] [address] [place] [address], [place] [address] Aug, [facility] [address] [id number] [address] [place] [address], [place] [phone] June, [facility] [address] [id number] [address] [place] [address], [place] [address] June, [facility] [address] [id number] [address] [place] [address], [place] [address] Jan, [facility] [address] [id number] [address] [place] [address], [place] [phone] Jan, [facility] [address] [id number] [address] [place] [address], [place] [address] 10 Oct, 2012 [facility] [address] [id number] [address] [place] [address], [place] [phone] Oct, [facility] [address] [id number] [address] [place] [address], [place] [address] May, [facility] [address] [id number] [address] [place] [address], [place] [address] Mar, [facility] [address] [id number] [address] [place] [address], [place] [address] Nov, [facility] [address] [id number] [address] [place] [address], [place] [address] Oct, [facility] [address] [id number] [address] [place] [address], [place] [address] Aug, [facility] [address] [id number] [address] [place] [address], [place] [address] Aug, [facility] [address] [id number] [address] [place] [address], [place] [address] Aug, [facility] [address] [id number] [address] [place] [address], [place] [address] Aug, [facility] [address] [id number] [address] [place] [address], [place] [address] Aug, [facility] [address] [id number] [address] [place] [address], [place] [address] Aug, [facility] [address] [id number] [address] [place] [address], [place] [address] Jul, [facility] [address] [id number] [address] [place] [address], [place] [address] Jul, [facility] [address] [id number] [address] [place] [phone] Jul, [facility] [address] [id number] [address] [place] [phone] Jul, [facility] [address] [id number] [address] [place] [phone] Jul, [facility] [address] [id number] [address] [place] [phone] June, [facility] [address] [id number] [address] [place] [phone] June, [facility] [address] [id number] [address] [place] [phone] June, [facility] [address] [id number] [address] [place] [phone] June, [facility] [address] [id number] [address] [place] [phone] June, IMMUNIZATIONS No Known Immunizations SOCIAL HISTORY Never Assessed REASON FOR VISIT injured back, patient states he was sitting and he felt someting pop in his naima k and the pain didn't go away. -- boom elliott PLAN OF CARE Activity Details Follow Up prn Reason: VITAL SIGNS Height 74 in 2016-12-14 Weight 284.0 lbs 2016-12-14 Temperature 98.6 degrees Fahrenheit 2016-12-14 Heart Rate 86 bpm 2016-12-14 Respiratory Rate 22 2016-12-14 BMI 36.46 kg/m2 2016-12-14 Blood pressure systolic 140 mmHg 2016-12-14 Blood pressure diastolic 78 mmHg 2016-12-14 MEDICATIONS Medication Instructions Dosage Frequency Start Date End Date Duration S tatus Ibuprofen 800 MG Orally Three times a day, pc 1 tablet 20 Active Albuterol Sulfate 90 mcg/actuation Inhalation every 4 hrs, PRN 2 pu ff May, Active RESULTS Name Result Date Reference Range Xray : Spine, Thoracic 2 views (IN HOUSE) 2016-02 Xray : Chest (IN HOUSE) 2016-12-14 PROCEDURES Procedure Date Ordered Result Body Site CHEST X-RAY Dec 14, 2016 X-RAY EXAM OF THORACIC SPINE Dec 14, 2016 INSTRUCTIONS MEDICATIONS ADMINISTERED No Known Medications MEDICAL (GENERAL) HISTORY Type Description Date Medical History heart murmur Medical History cancer-bladder Medical History asthma Medical History bronchitis Surgical History Cancer was removed from bladder 2009 Hospitalization History Pneumonia 1961 Hospitalization History Heart Attack 2017
--- OUTSIDE RECORDS SUMMARY | 2019-05-02 13:00 | XMS REPORT ---
Author Author Brigido TAN [facility] Address Unknown Care Team Providers Care Wood Craftsman Name Role Phone NIKHIL TAN Unavailable PROBLEMS Type Condition ICD9-CM Code OJL73-FD Code Onset Dates Condition S tatus SNOMED Code Problem Arthritis M19.90 Active 2192033 Problem Incomplete tear of right rotator cuff M75.111 Active 3004643 Problem Poor vision H54.7 Active 42722822 3 Problem Obstructive sleep apnea (adult) (pediatric) 327.23 Active 81369199 Problem Mixed hyperlipidemia E78.2 Active 249494034 Problem Multinodular goiter E04.2 Active 110699248 Problem Thyroid nodule E04.1 Active 16796 5005 Problem Persistent atrial fibrillation I48.1 Active 459687485 Problem Reactive depression F32.9 Active 32251441 Problem Atrial fibrillation I48.91 Active 19620392 Problem 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 Active [id number] ALLERGIES Substance Reaction Event Type Date Status Singulair tongue swelling Drug Allergy May, Active Indomethacin Unknown Drug Allergy May, Active Clindamycin HCl Unknown Drug Allergy May, Active Cayenne Pepper Tongue Swelling Drug Allergy May, Active ENCOUNTERS Encounter Location Date Diagnosis [facility] [address] [id number] [address] [place] [phone] Sep, [facility] [address] [id number] [address] [place] [phone] Aug, Cough R05 and Acute combined systolic (congestive) 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 [facility] [address] [facility] [id number] [address] [place] [phone] June, Multinodular goiter E04.2 [facility] [address] [id number] [address] [place] [phone] June, Thyroid nodule E04.1 [facility] [address] [facility] [id number] [address] [place] [address] May, [facility] [address] [address] May, Abnormal TSH R94.[address] [facility] [address] [facility] [id number] [address] [place] [address] [id number] May, Dental examination Z01.20 [facility] [address] [address] Apr, Atrial fibrillation I48.91 [place] [address] [address] Apr, [place] [address] [address] Apr, Pain of left breast N64.4 an d Encounter for immunization Z23 [facility] [address] [address] Mar, Abnormal TSH R94.6 and Acute combined systolic (congestive) 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 [place] [address] [id number] [address] [place] [address] Mar, [place] [address] [address] Feb, [facility] [address] [address] Feb, Persistent atrial fibrillati on I48.1 and Reactive depression F32.9 [place] [address] [address] Feb, [place] [address] [address] Feb, [place] [address] [address] Jan, [facility] [address] [id number] [address] [place] [address] Jan, Tear of medial meniscus of l eft knee, current, unspecified tear type, subsequent encounter S83.242D [facility] [address] [id number] [address] [place] [phone] Dec, [facility] [address] [id number] [address] [place] [phone] Dec, [facility] [address] [id number] [address] [place] [phone] Dec, [facility] [address] [facility] [id number] [address] [place] [address] Nov, Shortness of breath R06.02 a nd Acute right-sided thoracic back pain M54.6 [place] [address] [facility] [id number] [address] [place] [address] Nov, Incomplete tear of right rot ator cuff M75.111 and Tear of medial meniscus of left knee, current, unspecified tear type, subsequent encounter S83.242D [facility] [address] [id number] [address] [place] [phone] 14 Oct, 2016 Osteoarthritis of left knee, unspecified osteoarthritis type M17.12 [facility] [address] [id number] [address] [place] [phone] 17 Sep, 2016 Pain in right shoulder M25.5 11 [facility] [address] [id number] [address] [place] [address] Sep, Pain in right shoulder M25.5 11 and Poor vision H54.7 [facility] [address] [id number] [address] [place] [id number] 15 Sep, 2016 [facility] [address] [id number] [address] [place] [phone] 10 Sep, 2016 Arthritis M19.90 and Poor vi javier H54.[address] [facility] [address] [id number] [address] [place] [address] [id number] Aug, Dental caries K02.[address] [facility] [address] [id number] [address] [place] [address] [id number] Jul, Dental examination Z01.20 [facility] [address] [id number] [address] [place] [id number] Jul, [facility] [address] [id number] [address] [place] [phone] Jul, [facility] [address] [id number] [address] [place] [address] [phone] June, Dental examination Z01.[address] [facility] [address] [id number] [address] [place] [address] [id number] June, Dental caries K02.[address] [facility] [address] [id number] [address] [place] [address] [id number] May, Dental examination Z01.20 [facility] [address] [id number] [address] [place] [phone] May, [facility] [address] [id number] [address] [place] [address] May, Bronchospasm J98.01 [facility] [address] [id number] [address] [place] [address] Apr, Bronchospasm J98.01 [facility] [address] [id number] [address] [place] [phone] Apr, [facility] [address] [id number] [address] [place] [phone] Apr, Acute non-recurrent maxillar y sinusitis J01.00 and Viral syndrome B34.9 [facility] [address] [id number] [address] [place] [phone] Apr, [facility] [address] [id number] [address] [place] [address] Feb, Impingement syndrome of righ t shoulder M75.41 and Adhesive capsulitis of right shoulder M75.01 [facility] [address] [id number] [address] [place] [phone] Dec, Impingement syndrome of righ t shoulder M75.41 and Adhesive capsulitis of right shoulder M75.01 [facility] [address] [id number] [address] [place] [phone] Nov, [facility] [address] [id number] [address] [place] [phone] 22 Oct, 2015 [facility] [address] [id number] [address] [place] [id number] 22 Oct, 2015 Impingement syndrome of righ t shoulder M75.41 [facility] [address] [id number] [address] [place] [phone] 13 Oct, 2015 [facility] [address] [id number] [address] [place] [phone] Aug, Impingement syndrome of righ t shoulder M75.41 [facility] [address] [id number] [address] [place] [phone] Aug, Oral candidiasis B37.0 [facility] [address] [id number] [address] [place] [id number] Jul, Arthritis M19.90 [facility] [address] [id number] [address] [place] [phone] Jul, [facility] [address] [id number] [address] [place] [id number] June, Arthritis M19.90 and Mixed h yperlipidemia E78.2 [facility] [address] [id number] [address] [place] [phone] Apr, Lumbar strain S39.012A [facility] [address] [id number] [address] [place] [address] [id number] 18 Jan, 2015 Encounter for dental examina tion Z01.20 and Dental caries K02.[address] [facility] [address] [id number] [address] [place] [address] [id number] Jan, Dental examination Z01.20 an d Encounter for dental examination Z01.[address] [facility] [address] [id number] [address] [place] [address] [id number] June, Dental examination V72.[address] [facility] [address] [id number] [address] [place] [address] [phone] June, Dental examination V72.2 [facility] [address] [id number] [address] [place] [phone] May, [facility] [address] [id number] [address] [place] [phone] May, [facility] [address] [id number] [address] [place] [phone] Oct, [facility] [address] [id number] [address] [place] [phone] Oct, [facility] [address] [id number] [address] [place] [phone] Oct, [facility] [address] [id number] [address] [place] [phone] Oct, [facility] [address] [id number] [address] [place] [phone] Sep, [facility] [address] [id number] [address] [place] [phone] Sep, [facility] [address] [id number] [address] [place] [phone] Aug, [facility] [address] [id number] [address] [place] [phone] Aug, [facility] [address] [id number] [address] [place] [phone] Aug, [facility] [address] [id number] [address] [place] [phone] Aug, [facility] [address] [id number] [address] [place] [address], [place] [address] Aug, [facility] [address] [id number] [address] [place] [address], [place] [address] Aug, [facility] [address] [id number] [address] [place] [address], [place] [address] June, [facility] [address] [id number] [address] [place] [address], [place] [address] June, [facility] [address] [id number] [address] [place] [address], [place] [address] Jan, [facility] [address] [id number] [address] [place] [address], [place] [address] Jan, [facility] [address] [id number] [address] [place] [address], [place] [address] Oct, [facility] [address] [id number] [address] [place] [address], [place] [address] Oct, [facility] [address] [id number] [address] [place] [address], [place] [address] May, [facility] [address] [id number] [address] [place] [address], [place] [address] Mar, [facility] [address] [id number] [address] [place] [address], [place] [address] Nov, [facility] [address] [id number] [address] [place] [address], [place] [address] Oct, [facility] [address] [id number] [address] [place] [address], [place] [address] Aug, [facility] [address] [id number] [address] [place] [address], [place] [address] Aug, [facility] [address] [id number] [address] [place] [address], [place] [address] Aug, [facility] [address] [id number] [address] [place] [phone] Aug, [facility] [address] [id number] [address] [place] [phone] Aug, [facility] [address] [id number] [address] [place] [phone] Aug, [facility] [address] [id number] [address] [place] [phone] Jul, [facility] [address] [id number] [address] [place] [phone] Jul, [facility] [address] [id number] [address] [place] [phone] Jul, [facility] [address] [id number] [address] [place] [phone] Jul, [facility] [address] [id number] [address] [place] [phone] Jul, [facility] [address] [id number] [address] [place] [phone] June, [facility] [address] [id number] [address] [place] [phone] June, [facility] [address] [id number] [address] [place] [phone] June, [facility] [address] [id number] [address] [place] [phone] June, [facility] [address] [id number] [address] [place] [id number] June, IMMUNIZATIONS No Known Immunizations SOCIAL HISTORY Never Assessed REASON FOR VISIT MITCH PLAN OF CARE Activity Details Follow Up prn Reason:recall VITAL SIGNS Height 74 in 2017-06-02 Blood pressure systolic 115 mmHg 2017-06-02 Blood pressure diastolic 72 mmHg 2017-06-02 MEDICATIONS Medication Instructions Dosage Frequency Start Date End Date Duration S tatus Aspirin 81 81 MG Orally Once a day 1 tablet 24h Active Toprol XL 50 MG Orally Once a day 1 tablet 24h Not-Taking Penicillin V Potassium 500 MG Orally Four times a day 1 tablet 6h May, May, 10 day(s) Active Atorvastatin Calcium 40 MG Orally Once a day 1 tablet 24h Not-Taking Eliquis 5 mg Orally 2 times a day 1 tablet 12h Active Oxygen Active Digoxin 250 MCG Orally Once a day 1 tablet 24h Active Furosemide 20 MG Orally Once a day 1 tablet 24h Not-Taking Lisinopril 5 MG Orally Once a day 1 tablet 24h Active Furosemide Active Spironolactone 25 MG Orally Once a day 1 tablet with food 24h Active Proventil HFA 108 (90 Base) MCG/ACT Inhalation 4 times a day 2 p uffs as needed 6h Active ZyrTEC Active RESULTS No Results PROCEDURES Procedure Date Ordered Result Body Site LTD ORAL EVALUATION - PROBLEM FOCUS June 02, 2017 INTRAORL-PERIAPICAL 1 FILM 72742 June 02, 2017 BITEWING - SINGLE FILM June 02, 2017 INSTRUCTIONS MEDICATIONS ADMINISTERED No Known Medications MEDICAL (GENERAL) HISTORY Type Description Date Medical History heart murmur Medical History cancer-bladder Medical History asthma Medical History bronchitis Surgical History Cancer was removed from bladder 2009 Hospitalization History Pneumonia 1961 Hospitalization History Heart Attack 2017
--- OUTSIDE RECORDS SUMMARY | 2019-05-02 13:00 | XMS REPORT ---
Author Author Brigido FRANK Organization [facility] Address [address] [place] [address] Care Team Providers Care Events Specialist Name Role Phone VICK FRANK Unavailable PROBLEMS Type Condition ICD9-CM Code IIV34-GU Code Onset Dates Condition S tatus SNOMED Code Problem Arthritis M19.90 Active 1478814 Problem Incomplete tear of right rotator cuff M75.111 Active 7398011 Problem Poor vision H54.7 Active 09696736 3 Problem Obstructive sleep apnea (adult) (pediatric) 327.23 Active 22796151 Problem Mixed hyperlipidemia E78.2 Active 654446658 Problem Multinodular goiter E04.2 Active 641157152 Problem Thyroid nodule E04.1 Active 76009 5005 Problem Persistent atrial fibrillation I48.1 Active 625364096 Problem Reactive depression F32.9 Active 33383516 Problem Atrial fibrillation I48.91 Active 48616506 Problem 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 Active [id number] ALLERGIES No Information ENCOUNTERS Encounter Location Date Diagnosis [place] [address] [facility] [id number] [address] [place] [phone] Sep, [facility] [address] [facility] [id number] [address] [place] [phone] Aug, Cough R05 and Acute combined systolic (congestive) 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 [facility] [address] [facility] [id number] [address] [place] [phone] June, Multinodular goiter E04.2 [facility] [address] [facility] [id number] [address] [place] [phone] June, Thyroid nodule E04.1 [facility] [address] [facility] [id number] [address] [place] [phone] May, [facility] [address] [facility] [id number] [address] [place] [phone] May, Abnormal TSH R94.6 [facility] [address] [id number] [address] [place] [id number] May, Dental examination Z01.20 [facility] [address] [facility] [id number] [address] [place] [phone] Apr, Atrial fibrillation I48.91 [facility] [address] [facility] [id number] [address] [place] [phone] Apr, [facility] [address] [facility] [id number] [address] [place] [phone] Apr, Pain of left breast N64.4 an d Encounter for immunization Z23 [facility] [address] [facility] [id number] [address] [place] [phone] Mar, Abnormal TSH R94.6 and Acute combined systolic (congestive) 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 [facility] [address] [facility] [id number] [address] [place] [phone] Mar, [facility] [address] [facility] [id number] [address] [place] [phone] Feb, [facility] [address] [facility] [id number] [address] [place] [phone] Feb, Persistent atrial fibrillati on I48.1 and Reactive depression F32.9 [facility] [address] [facility] [id number] [address] [place] [phone] Feb, [facility] [address] [facility] [id number] [address] [place] [phone] Feb, [facility] [address] [facility] [id number] [address] [place] [phone] Jan, [facility] [address] [facility] [id number] [address] [place] [phone] Jan, Tear of medial meniscus of l eft knee, current, unspecified tear type, subsequent encounter S83.242D [facility] [address] [id number] [address] [place] [phone] 30 Dec, 2016 [facility] [address] [id number] [address] [place] [phone] 06 Dec, 2016 [facility] [address] [id number] [address] [place] [phone] Dec, [facility] [address] [id number] [address] [place] [phone] Nov, Shortness of breath R06.02 a nd Acute right-sided thoracic back pain M54.6 [facility] [address] [id number] [address] [place] [phone] 19 Nov, 2016 Incomplete tear of right rot ator cuff M75.111 and Tear of medial meniscus of left knee, current, unspecified tear type, subsequent encounter S83.242D [facility] [address] [id number] [address] [place] [phone] 14 Oct, 2016 Osteoarthritis of left knee, unspecified osteoarthritis type M17.12 [facility] [address] [id number] [address] [place] [phone] 17 Sep, 2016 Pain in right shoulder M25.5 11 [facility] [address] [id number] [address] [place] [phone] 17 Sep, 2016 Pain in right shoulder M25.5 11 and Poor vision H54.7 [facility] [address] [id number] [address] [place] [phone] 15 Sep, 2016 [facility] [address] [id number] [address] [place] [phone] 10 Sep, 2016 Arthritis M19.90 and Poor vi javier H54.7 [facility] [address] [id number] [address] [place] [phone] Aug, Dental caries K02.9 [facility] [address] [id number] [address] [place] [id number] Jul, Dental examination Z01.20 [facility] [address] [id number] [address] [place] [phone] Jul, [facility] [address] [id number] [address] [place] [phone] Jul, [facility] [address] [id number] [address] [place] [address] [id number] June, Dental examination Z01.20 [facility] [address] [id number] [address] [place] [address] [phone] June, Dental caries K02.9 [facility] [address] [id number] [address] [place] [phone] May, Dental examination Z01.20 [facility] [address] [id number] [address] [place] [phone] May, [facility] [address] [id number] [address] [place] [phone] May, Bronchospasm J98.01 [facility] [address] [id number] [address] [place] [phone] Apr, Bronchospasm J98.01 [facility] [address] [id number] [address] [place] [phone] Apr, [facility] [address] [id number] [address] [place] [phone] Apr, Acute non-recurrent maxillar y sinusitis J01.00 and Viral syndrome B34.9 [facility] [address] [id number] [address] [place] [phone] Apr, [facility] [address] [id number] [address] [place] [phone] Feb, Impingement syndrome of righ t shoulder M75.41 and Adhesive capsulitis of right shoulder M75.01 [facility] [address] [id number] [address] [place] [phone] Dec, Impingement syndrome of righ t shoulder M75.41 and Adhesive capsulitis of right shoulder M75.01 [facility] [address] [id number] [address] [place] [phone] Nov, [facility] [address] [id number] [address] [place] [phone] Oct, [facility] [address] [id number] [address] [place] [phone] Oct, Impingement syndrome of righ t shoulder M75.41 [facility] [address] [id number] [address] [place] [phone] 13 Oct, 2015 [facility] [address] [id number] [address] [place] [phone] Aug, Impingement syndrome of righ t shoulder M75.41 [facility] [address] [id number] [address] [place] [phone] Aug, Oral candidiasis B37.0 [facility] [address] [id number] [address] [place] [phone] Jul, Arthritis M19.90 [facility] [address] [id number] [address] [place] [phone] Jul, [facility] [address] [id number] [address] [place] [phone] June, Arthritis M19.90 and Mixed h yperlipidemia E78.2 [facility] [address] [id number] [address] [place] [phone] Apr, Lumbar strain S39.012A [facility] [address] [id number] [address] [place] [address] [id number] Jan, Encounter for dental examina tion Z01.20 and Dental caries K02.9 [facility] [address] [id number] [address] [place] [address] [phone] Jan, Encounter for dental examina tion Z01.20 and Dental examination Z01.20 [facility] [address] [id number] [place] [id number] June, Dental examination V72.2 [facility] [address] [id number] [address] [place] [address] [id number] June, Dental examination V72.2 [facility] [address] [id number] [address] [place] [id number] 14 May, 2014 [facility] [address] [id number] [address] [place] [phone] May, [facility] [address] [id number] [address] [place] [address], [place] [phone] Oct, [facility] [address] [id number] [address] [place] [phone] Oct, [facility] [address] [id number] [address] [place] [address], [place] [phone] Oct, [facility] [address] [id number] [address] [place] [phone] Oct, [facility] [address] [id number] [address] [place] [address], [place] [phone] Sep, [facility] [address] [id number] [address] [place] [phone] Sep, [facility] [address] [id number] [address] [place] [address], [place] [phone] Aug, [facility] [address] [id number] [address] [place] [phone] Aug, [facility] [address] [id number] [address] [place] [phone] Aug, [facility] [address] [id number] [address] [place] [phone] Aug, [facility] [address] [id number] [address] [place] [phone] Aug, [facility] [place] [facility] [address] [id number] [address] [place] [address], [place] [phone] Aug, [facility] [address] [id number] [address] [place] [address], [place] [phone] June, [facility] [address] [id number] [address] [place] [address], [place] [phone] June, [facility] [address] [id number] [address] [place] [address], [place] [phone] Jan, [facility] [address] [id number] [address] [place] [address], [place] [phone] Jan, [facility] [address] [id number] [address] [place] [address], [place] [phone] Oct, [facility] [address] [id number] [address] [place] [address], [place] [phone] Oct, [facility] [address] [id number] [address] [place] [address], [place] [phone] May, [facility] [address] [id number] [address] [place] [address], [place] [phone] Mar, [facility] [address] [id number] [address] [place] [address], [place] [phone] Nov, [facility] [address] [id number] [address] [place] [address], [place] [phone] Oct, [facility] [address] [id number] [address] [place] [address], [place] [phone] Aug, [facility] [address] [id number] [address] [place] [address], [place] [phone] Aug, [facility] [address] [id number] [address] [place] [address], [place] [phone] Aug, [facility] [address] [id number] [address] [place] [address], [place] [phone] Aug, [facility] [address] [id number] [address] [place] [phone] Aug, [facility] [address] [id number] [address] [place] [phone] Aug, [facility] [address] [id number] [address] [place] [phone] Jul, [facility] [address] [id number] [address] [place] [phone] Jul, [facility] [address] [id number] [address] [place] [phone] Jul, [facility] [address] [id number] [address] [place] [phone] Jul, [facility] [address] [id number] [address] [place] [phone] Jul, [facility] [address] [id number] [address] [place] [phone] June, [facility] [address] [id number] [address] [place] [phone] June, [facility] [address] [id number] [address] [place] [phone] June, [facility] [address] [id number] [address] [place] [phone] June, [facility] [address] [id number] [address] [place] [phone] June, IMMUNIZATIONS No Known Immunizations SOCIAL HISTORY Never Assessed REASON FOR VISIT PALS- Eliquis PLAN OF CARE VITAL SIGNS MEDICATIONS Medication Instructions Dosage Frequency Start Date End Date Duration S tatus Eliquis 5 mg Orally 2 times a day 1 tablet 12h Active RESULTS No Results PROCEDURES No Known procedures INSTRUCTIONS MEDICATIONS ADMINISTERED No Known Medications MEDICAL (GENERAL) HISTORY Type Description Date Medical History heart murmur Medical History cancer-bladder Medical History asthma Medical History bronchitis Surgical History Cancer was removed from bladder 2009 Hospitalization History Pneumonia 1961 Hospitalization History Heart Attack 2017
--- OUTSIDE RECORDS SUMMARY | 2019-05-02 13:00 | XMS REPORT ---
Author Author Brigido FRANK Organization [facility] Address [address] [place] [address] Care Team Providers Care Store Shopper Name Role Phone VICK FRANK Unavailable PROBLEMS Type Condition ICD9-CM Code BEQ03-BX Code Onset Dates Condition S tatus SNOMED Code Problem Arthritis M19.90 Active 4755283 Problem Incomplete tear of right rotator cuff M75.111 Active 8847302 Problem Poor vision H54.7 Active 11744791 3 Problem Obstructive sleep apnea (adult) (pediatric) 327.23 Active 51505925 Problem Mixed hyperlipidemia E78.2 Active 862515331 Problem Multinodular goiter E04.2 Active 320974834 Problem Thyroid nodule E04.1 Active 52314 5005 Problem Persistent atrial fibrillation I48.1 Active 980158760 Problem Reactive depression F32.9 Active 95259628 Problem Atrial fibrillation I48.91 Active 16701332 Problem 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 Active [id number] ALLERGIES Substance Reaction Event Type Date Status Indomethacin Unknown Drug Allergy Mar, Active Clindamycin HCl Unknown Drug Allergy Mar, Active Cayenne Pepper Tongue Swelling Drug Allergy Mar, Active ENCOUNTERS Encounter Location Date Diagnosis [facility] [address] [facility] [id number] [address] [place] [phone] Aug, [facility] [address] [facility] [id number] [address] [place] [phone] June, Multinodular goiter E04.2 [facility] [address] [facility] [id number] [address] [place] [phone] June, Thyroid nodule E04.1 [facility] [address] [facility] [id number] [address] [place] [phone] May, [place] [address] [facility] [id number] [address] [place] [phone] May, Abnormal TSH R94.6 [facility] [address] [id number] [address] [place] [id number] 13 May, 2017 Dental examination Z01.20 [facility] [address] [facility] [id number] [address] [place] [id number] 20 Apr, 2017 Atrial fibrillation I48.91 [facility] [address] [facility] [id number] [address] [place] [phone] 15 Apr, 2017 [facility] [address] [facility] [id number] [address] [place] [phone] Apr, Pain of left breast N64.4 an d Encounter for immunization Z23 [facility] [address] [facility] [id number] [address] [place] [phone] Mar, Abnormal TSH R94.6 and Acute combined systolic (congestive) 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 [facility] [address] [facility] [id number] [address] [place] [id number] Mar, [facility] [address] [facility] [id number] [address] [place] [phone] Feb, [facility] [address] [facility] [id number] [address] [place] [id number] Feb, Persistent atrial fibrillati on I48.1 and Reactive depression F32.9 [facility] [address] [facility] [id number] [address] [place] [phone] Feb, [facility] [address] [facility] [id number] [address] [place] [phone] Feb, [facility] [address] [facility] [id number] [address] [place] [id number] Jan, [facility] [address] [facility] [id number] [address] [place] [phone] Jan, Tear of medial meniscus of l eft knee, current, unspecified tear type, subsequent encounter S83.242D [facility] [address] [id number] [address] [place] [phone] Dec, [facility] [address] [id number] [address] [place] [phone] Dec, [facility] [address] [id number] [address] [place] [id number] Dec, [facility] [address] [id number] [address] [place] [phone] Nov, Shortness of breath R06.02 a nd Acute right-sided thoracic back pain M54.6 [facility] [address] [id number] [address] [place] [phone] Nov, Incomplete tear of right rot ator cuff M75.111 and Tear of medial meniscus of left knee, current, unspecified tear type, subsequent encounter S83.242D [facility] [address] [id number] [address] [place] [phone] 14 Oct, 2016 Osteoarthritis of left knee, unspecified osteoarthritis type M17.12 [facility] [address] [id number] [address] [place] [phone] 17 Sep, 2016 Pain in right shoulder M25.5 11 [facility] [address] [id number] [address] [place] [phone] 17 Sep, 2016 Pain in right shoulder M25.5 11 and Poor vision H54.7 [facility] [address] [id number] [address] [place] [phone] 15 Sep, 2016 [facility] [address] [id number] [address] [place] [phone] 10 Sep, 2016 Arthritis M19.90 and Poor vi javier H54.7 [facility] [address] [id number] [address] [place] [address] [id number] Aug, Dental caries K02.9 [facility] [address] [id number] [address] [place] [id number] Jul, Dental examination Z01.20 [facility] [address] [id number] [address] [place] [phone] Jul, [facility] [address] [id number] [address] [place] [phone] Jul, [facility] [address] [id number] [address] [place] [address] [id number] June, Dental examination Z01.20 [facility] [address] [id number] [address] [place] [id number] June, Dental caries K02.9 [facility] [address] [id number] [address] [place] [address] [id number] May, Dental examination Z01.20 [facility] [address] [id number] [address] [place] [phone] May, [facility] [address] [id number] [address] [place] [phone] May, Bronchospasm J98.01 [facility] [address] [id number] [address] [place] [phone] Apr, Bronchospasm J98.01 [facility] [address] [id number] [address] [place] [id number] Apr, [facility] [address] [id number] [address] [place] [id number] Apr, Acute non-recurrent maxillar y sinusitis J01.00 and Viral syndrome B34.9 [facility] [address] [id number] [address] [place] [phone] Apr, [facility] [address] [id number] [address] [place] [phone] Feb, Impingement syndrome of righ t shoulder M75.41 and Adhesive capsulitis of right shoulder M75.01 [facility] [address] [id number] [address] [place] [id number] 17 Nov, 2016 Impingement syndrome of righ t shoulder M75.41 and Adhesive capsulitis of right shoulder M75.01 [facility] [address] [id number] [address] [place] [phone] Nov, [facility] [address] [id number] [address] [place] [phone] 22 Oct, 2015 [facility] [address] [id number] [address] [place] [id number] 22 Oct, 2015 Impingement syndrome of righ t shoulder M75.41 [facility] [address] [id number] [address] [place] [phone] 13 Oct, 2015 [facility] [address] [id number] [address] [place] [phone] Aug, Impingement syndrome of righ t shoulder M75.41 [facility] [address] [id number] [address] [place] [phone] Aug, Oral candidiasis B37.0 [facility] [address] [id number] [address] [place] [id number] Jul, Arthritis M19.90 [facility] [address] [id number] [address] [place] [phone] Jul, [facility] [address] [id number] [address] [place] [phone] June, Arthritis M19.90 and Mixed h yperlipidemia E78.2 [facility] [address] [id number] [address] [place] [phone] Apr, Lumbar strain S39.012A [facility] [address] [id number] [address] [place] [address] [id number] Jan, Encounter for dental examina tion Z01.20 and Dental caries K02.9 [facility] [address] [id number] [address] [place] [address] [id number] Jan, Encounter for dental examina tion Z01.20 and Dental examination Z01.20 [facility] [address] [id number] [address] [id number] June, Dental examination V72.2 [facility] [address] [id number] [address] [place] [address] [id number] June, Dental examination V72.2 [facility] [address] [id number] [address] [place] [phone] May, [facility] [address] [id number] [address] [place] [phone] May, [facility] [address] [id number] [address] [place] [address], [place] [address] Oct, [facility] [address] [id number] [address] [place] [phone] Oct, [facility] [address] [id number] [address] [place] [address], [place] [address] Oct, [facility] [address] [id number] [address] [place] [phone] Oct, [facility] [address] [id number] [address] [place] [phone] Sep, [facility] [address] [id number] [address] [place] [phone] Sep, [facility] [address] [id number] [address] [place] [phone] Aug, [facility] [address] [id number] [address] [place] [phone] Aug, [facility] [address] [id number] [address] [place] [phone] Aug, [facility] [address] [id number] [address] [place] [phone] Aug, [facility] [address] [id number] [address] [place] [phone] Aug, [facility] [address] [id number] [address] [place] [address], [place] [address] Aug, [facility] [address] [id number] [address] [place] [address], [place] [address] June, [facility] [address] [id number] [address] [place] [address], [place] [address] June, [facility] [address] [id number] [address] [place] [address], [place] [address] Jan, [facility] [address] [id number] [address] [place] [address], [place] [address] Jan, [facility] [address] [id number] [address] [place] [address], [place] [address] Oct, [facility] [address] [id number] [address] [place] [address], [place] [address] Oct, [facility] [address] [id number] [address] [place] [address], [place] [address] May, [facility] [address] [id number] [address] [place] [address], [place] [address] Mar, [facility] [address] [id number] [address] [place] [address], [place] [address] Nov, [facility] [address] [id number] [address] [place] [address], [place] [address] Oct, [facility] [address] [id number] [address] [place] [address], [place] [address] Aug, [facility] [address] [id number] [address] [place] [address], [place] [address] Aug, [facility] [address] [id number] [address] [place] [address], [place] [address] Aug, [facility] [address] [id number] [address] [place] [address], [place] [address] Aug, [facility] [address] [id number] [address] [place] [address], [place] [address] Aug, [facility] [address] [id number] [address] [place] [phone] Aug, [facility] [address] [id number] [address] [place] [phone] Jul, [facility] [address] [id number] [address] [place] [phone] Jul, [facility] [address] [id number] [address] [place] [phone] Jul, [facility] [address] [id number] [address] [place] [phone] Jul, [facility] [address] [id number] [address] [place] [phone] Jul, [facility] [address] [id number] [address] [place] [id number] June, [facility] [address] [id number] [address] [place] [phone] June, [facility] [address] [id number] [address] [place] [phone] June, [facility] [address] [id number] [address] [place] [phone] June, [facility] [address] [id number] [address] [place] [phone] June, IMMUNIZATIONS No Known Immunizations SOCIAL HISTORY Never Assessed REASON FOR VISIT Thyroid - states Dr Jama wants his Thyroid evaluated- Arelis Mondragon RN PLAN OF CARE Activity Details Follow Up Will call after lab Reason: VITAL SIGNS Height 74 in 2017-04-03 Weight 272 lbs 2017-04-03 Temperature 97.9 degrees Fahrenheit 2017-04-03 Heart Rate 80 bpm 2017-04-03 Respiratory Rate 18 2017-04-03 BMI 34.92 kg/m2 2017-04-03 Blood pressure systolic 98 mmHg 2017-04-03 Blood pressure diastolic 62 mmHg 2017-04-03 MEDICATIONS Medication Instructions Dosage Frequency Start Date End Date Duration S tatus Atorvastatin Calcium 40 MG Orally Once a day 1 tablet 24h Active Digoxin 250 MCG Orally Once a day 1 tablet 24h Active Furosemide 20 MG Orally Once a day 1 tablet 24h Active Proventil HFA 108 (90 Base) MCG/ACT Inhalation 4 times a day 2 p uffs as needed 6h Active Lisinopril 5 MG Orally Once a day 1 tablet 24h Active Aspirin 81 81 MG Orally Once a day 1 tablet 24h Active Eliquis 5 mg Orally 2 times a day 1 tablet 12h Active Spironolactone 25 MG Orally Once a day 1 tablet with food 24h Active Toprol XL 50 MG Orally Once a day 1 tablet 24h Active RESULTS No Results PROCEDURES Procedure Date Ordered Result Body Site ASSAY OF TOTAL THYROXINE Apr 03, 2017 FREE ASSAY (FT-3) Apr 03, 2017 VENIPUNCT, ROUTINE* Apr 03, 2017 BASIC METABOLIC PANEL Apr 03, 2017 ASSAY OF MAGNESIUM Apr 03, 2017 ASSAY OF DIGOXIN Apr 03, 2017 INSTRUCTIONS MEDICATIONS ADMINISTERED No Known Medications MEDICAL (GENERAL) HISTORY Type Description Date Medical History heart murmur Medical History cancer-bladder Medical History asthma Medical History bronchitis Surgical History Cancer was removed from bladder 2009 Hospitalization History Pneumonia 1961 Hospitalization History Heart Attack 2017
--- OUTSIDE RECORDS SUMMARY | 2019-05-02 13:00 | XMS REPORT ---
Author Author Brigido FRANK Organization [facility] Address [address] [place] [address] Care Team Providers Care Manager Global Name Role Phone VICK FRANK Unavailable PROBLEMS Type Condition ICD9-CM Code PYH35-EX Code Onset Dates Condition S tatus SNOMED Code Problem Arthritis M19.90 Active 3650873 Problem Incomplete tear of right rotator cuff M75.111 Active 9118587 Problem Poor vision H54.7 Active 03291047 3 Problem Obstructive sleep apnea (adult) (pediatric) 327.23 Active 37793365 Problem Mixed hyperlipidemia E78.2 Active 039384648 Problem Multinodular goiter E04.2 Active 209147633 Problem Thyroid nodule E04.1 Active 04974 5005 Problem Persistent atrial fibrillation I48.1 Active 074822374 Problem Reactive depression F32.9 Active 32126263 Problem Atrial fibrillation I48.91 Active 77304324 Problem 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 [id number] [address] [place] [id number] Sep, [facility] [address] 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 [id number] [address] [place] [id number] June, Multinodular goiter E04.2 [facility] [address] [facility] [id number] [address] [place] [address] June, Thyroid nodule E04.1 [facility] [address] [facility] [id number] [address] [place] [phone] May, [facility] [address] [id number] May, Abnormal TSH R94.6 [facility] [address] [facility] [id number] [address] [place] [address] [id number] May, Dental examination Z01.20 [facility] [address] [address] Apr, Atrial fibrillation I48.91 [place] [address] [address] Apr, [place] [address] [address] Apr, Pain of left breast N64.4 an d Encounter for immunization Z23 [facility] [address] [address] Mar, Abnormal TSH R94.6 and Acute combined systolic (congestive) 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 [place] [address] [place] [id number] [address] [place] [address] Mar, [facility] [address] [address] Feb, [facility] [address] [address] Feb, Persistent atrial fibrillati on I48.1 and Reactive depression F32.9 [place] [address] [address] Feb, [place] [address] [address] Feb, [place] [address] [address] Jan, [facility] [address] [id number] [address] [place] [address] Jan, Tear of medial meniscus of l eft knee, current, unspecified tear type, subsequent encounter S83.242D [facility] [address] [id number] [address] [place] [address] Dec, [facility] [address] [id number] [address] [place] [address] Dec, [facility] [address] [id number] [address] [place] [address] Dec, [facility] [address] [facility] [id number] [address] [place] [address] Nov, Shortness of breath R06.02 a nd Acute right-sided thoracic back pain M54.6 [place] [address] [facility] [id number] [address] [place] [address] Nov, Incomplete tear of right rot ator cuff M75.111 and Tear of medial meniscus of left knee, current, unspecified tear type, subsequent encounter S83.242D [facility] [address] [id number] [address] [place] [id number] 14 Oct, 2016 Osteoarthritis of left knee, unspecified osteoarthritis type M17.12 [facility] [address] [id number] [address] [place] [id number] 17 Sep, 2016 Pain in right shoulder M25.5 11 [facility] [address] [id number] [address] [place] [id number] 17 Sep, 2016 Pain in right shoulder M25.5 11 and Poor vision H54.7 [facility] [address] [id number] [address] [place] [id number] 15 Sep, 2016 [facility] [address] [facility] [id number] [address] [place] [address] 10 Sep, 2016 Arthritis M19.90 and Poor vi javier H54.7 [facility] [address] [id number] [address] [place] [id number] Aug, Dental caries K02.9 [facility] [address] [id number] [address] [place] [address] [id number] Jul, Dental examination Z01.20 [facility] [address] [id number] [address] [place] [address] Jul, [facility] [address] [id number] [address] [place] [address] Jul, [facility] [address] [id number] [address] [place] [address] [id number] June, Dental examination Z01.20 [facility] [address] [id number] [address] [place] [address] [id number] June, Dental caries K02.9 [facility] [address] [id number] [address] [place] [id number] May, Dental examination Z01.20 [facility] [address] [id number] [address] [place] [address] May, [facility] [address] [id number] [address] [place] [address] May, Bronchospasm J98.01 [facility] [address] [id number] [address] [place] [address] Apr, Bronchospasm J98.01 [facility] [address] [id number] [address] [place] [id number] Apr, [facility] [address] [id number] [address] [place] [address] Apr, Acute non-recurrent maxillar y sinusitis J01.00 and Viral syndrome B34.9 [facility] [address] [id number] [address] [place] [address] Apr, [facility] [address] [id number] [address] [place] [address] Feb, Impingement syndrome of righ t shoulder M75.41 and Adhesive capsulitis of right shoulder M75.01 [facility] [address] [id number] [address] [place] [address] Dec, Impingement syndrome of righ t shoulder M75.41 and Adhesive capsulitis of right shoulder M75.01 [facility] [address] [id number] [address] [place] [id number] 27 Nov, 2015 [facility] [address] [id number] [address] [place] [id number] 22 Oct, 2015 [facility] [address] [id number] [address] [place] [id number] 22 Oct, 2015 Impingement syndrome of righ t shoulder M75.41 [facility] [address] [id number] [address] [place] [id number] 13 Oct, 2015 [facility] [address] [id number] [address] [place] [id number] Aug, Impingement syndrome of righ t shoulder M75.41 [facility] [address] [id number] [address] [place] [address] Aug, Oral candidiasis B37.0 [facility] [address] [id number] [address] [place] [id number] Jul, Arthritis M19.90 [facility] [address] [id number] [address] [place] [id number] Jul, [facility] [address] [id number] [address] [place] [address] June, Arthritis M19.90 and Mixed h yperlipidemia E78.2 [facility] [address] [id number] [address] [place] [address] Apr, Lumbar strain S39.012A [facility] [address] [id number] [address] [place] [address] [id number] 18 Jan, 2015 Encounter for dental examina tion Z01.20 and Dental caries K02.9 [facility] [address] [id number] [address] [place] [address] [id number] 15 Jan, 2015 Encounter for dental examina tion Z01.20 and Dental examination Z01.20 [facility] [address] [id number] [address] [place] [address] [id number] June, Dental examination V72.2 [facility] [address] [id number] [address] [place] [address] [id number] June, Dental examination V72.2 [facility] [address] [id number] [address] [place] [id number] May, [facility] [address] [id number] [address] [place] [phone] May, [facility] [address] [id number] [address] [place] [id number] Oct, [facility] [address] [id number] [address] [place] [id number] Oct, [facility] [address] [id number] [address] [place] [phone] Oct, [facility] [address] [id number] [address] [place] [id number] Oct, [facility] [address] [id number] [address] [place] [phone] Sep, [facility] [address] [id number] [address] [place] [phone] Sep, [facility] [address] [id number] [address] [place] [phone] Aug, [facility] [address] [id number] [address] [place] [phone] Aug, [facility] [address] [id number] [address] [place] [phone] Aug, [facility] [address] [id number] [address] [place] [id number] Aug, [facility] [address] [id number] [address] [place] [address], [place] [phone] Aug, [facility] [address] [id number] [address] [place] [address], [place] [address] Aug, [facility] [address] [id number] [address] [place] [address], [place] [address] June, [facility] [address] [id number] [address] [place] [address], [place] [address] June, [facility] [address] [id number] [address] [place] [address], [place] [address] Jan, [facility] [address] [id number] [address] [place] [address], [place] [address] Jan, [facility] [address] [id number] [address] [place] [address], [place] [address] Oct, [facility] [address] [id number] [address] [place] [address], [place] [address] Oct, [facility] [address] [id number] [address] [place] [address], [place] [address] May, [facility] [address] [id number] [address] [place] [address], [place] [address] Mar, [facility] [address] [id number] [address] [place] [address], [place] [address] Nov, [facility] [address] [id number] [address] [place] [address], [place] [address] Oct, [facility] [address] [id number] [address] [place] [address], [place] [address] Aug, [facility] [address] [id number] [address] [place] [address], [place] [address] Aug, [facility] [address] [id number] [address] [place] [address], [place] [address] Aug, [facility] [address] [id number] [address] [place] [id number] 18 Aug, 2011 [facility] [address] [id number] [address] [place] [id number] 17 Aug, 2011 [facility] [address] [id number] [address] [place] [phone] Aug, [facility] [address] [id number] [address] [place] [phone] Jul, [facility] [address] [id number] [address] [place] [phone] Jul, [facility] [address] [id number] [address] [place] [id number] Jul, [facility] [address] [id number] [address] [place] [phone] Jul, [facility] [address] [id number] [address] [place] [id number] Jul, [facility] [address] [id number] [address] [place] [phone] June, [facility] [address] [id number] [address] [place] [phone] June, [facility] [address] [id number] [address] [place] [id number] June, [facility] [address] [id number] [address] [place] [phone] June, [facility] [address] [id number] [address] [place] [phone] June, IMMUNIZATIONS Vaccine Route Administration Date Status PPSV23 (PNEUMOVAX) IM Intramuscular May 01, 2017 Administered SOCIAL HISTORY Never Assessed REASON FOR VISIT thyroid-Jumana ROSE PLAN OF CARE Activity Details Follow Up prn Reason: VITAL SIGNS Height 74 in 2017-05-01 Weight 287.2 lbs 2017-05-01 Temperature 97.7 degrees Fahrenheit 2017-05-01 Heart Rate 78 bpm 2017-05-01 Respiratory Rate 20 2017-05-01 Oximetry w/ oxygen @ 2L:97 % 2017-05-01 BMI 36.87 kg/m2 2017-05-01 Blood pressure systolic 118 mmHg 2017-05-01 Blood pressure diastolic 70 mmHg 2017-05-01 MEDICATIONS Medication Instructions Dosage Frequency Start Date End Date Duration S tatus Furosemide 20 MG Orally Once a day 1 tablet 24h Active Toprol XL 50 MG Orally Once a day 1 tablet 24h Active Lisinopril 5 MG Orally Once a day 1 tablet 24h Active Eliquis 5 mg Orally 2 times a day 1 tablet 12h Active Spironolactone 25 MG Orally Once a day 1 tablet with food 24h Active Aspirin 81 81 MG Orally Once a day 1 tablet 24h Active Atorvastatin Calcium 40 MG Orally Once a day 1 tablet 24h Active Digoxin 250 MCG Orally Once a day 1 tablet 24h Active Proventil HFA 108 (90 Base) MCG/ACT Inhalation 4 times a day 2 p uffs as needed 6h Active RESULTS No Results PROCEDURES Procedure Date Ordered Result Body Site PPSV23 (PNEUMOVAX) May 01, 2017 SINGLE IMMUNIZATION ADMIN May 01, 2017 INSTRUCTIONS MEDICATIONS ADMINISTERED No Known Medications MEDICAL (GENERAL) HISTORY Type Description Date Medical History heart murmur Medical History cancer-bladder Medical History asthma Medical History bronchitis Surgical History Cancer was removed from bladder 2009 Hospitalization History Pneumonia 1961 Hospitalization History Heart Attack 2017
--- OUTSIDE RECORDS SUMMARY | 2019-05-02 13:00 | XMS REPORT ---
Author Author Brigido FRANK Organization [facility] Address [address] [place] [address] Care Team Providers Care Barometers Calibrator Name Role Phone VICK FRANK Unavailable PROBLEMS Type Condition ICD9-CM Code [id number] Code Onset Dates Condition S tatus SNOMED Code Problem Arthritis M19.90 Active 9891000 Problem Incomplete tear of right rotator cuff M75.111 Active 0695728 Problem Poor vision H54.7 Active 34100249 3 Problem Obstructive sleep apnea (adult) (pediatric) 327.23 Active 77394397 Problem Mixed hyperlipidemia E78.2 Active 859301370 Problem Multinodular goiter E04.2 Active 866853710 Problem Thyroid nodule E04.1 Active 65152 5005 Problem Persistent atrial fibrillation I48.1 Active 731841819 Problem Reactive depression F32.9 Active 32367912 Problem Atrial fibrillation I48.91 Active 48837718 Problem 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 Active [id number] ALLERGIES Substance Reaction Event Type Date Status Singulair tongue swelling Drug Allergy May, Active Indomethacin Unknown Drug Allergy May, Active Clindamycin HCl Unknown Drug Allergy May, Active Cayenne Pepper Tongue Swelling Drug Allergy May, Active ENCOUNTERS Encounter Location Date Diagnosis [facility] [address] [facility] [id number] [address] [place] [phone] Sep, [facility] [address] [facility] [id number] [address] [place] [phone] Aug, Cough R05 and Acute combined systolic (congestive) 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 [facility] [address] [facility] [id number] [address] [place] [address] June, Multinodular goiter E04.2 [facility] [address] [place] [id number] [address] [place] [address] June, Thyroid nodule E04.1 [facility] [address] [address] May, [facility] [address] [address] May, Abnormal TSH R94.6 [facility] [address] [place] [id number] [place] [address] [phone] 13 May, 2017 Dental examination Z01.20 [facility] [address] [place] [place] [id number] [address] [place] [phone] Apr, Atrial fibrillation I48.91 [facility] [address] [address] Apr, [facility] [address] [address] Apr, Pain of left breast N64.4 an d Encounter for immunization Z23 [facility] [address] [id number] Mar, Abnormal TSH R94.6 and Acute combined systolic (congestive) 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 [facility] [address] [place] [id number] [address] [place] [address] Mar, [facility] [address] [address] Feb, [facility] [address] [address] Feb, Persistent atrial fibrillati on I48.1 and Reactive depression F32.9 [facility] [address] [id number] Feb, [facility] [address] [place] [id number] [address] [place] [phone] Feb, [facility] [address] [id number] Jan, [facility] [address] [id number] [address] [place] [phone] Jan, Tear of medial meniscus of l eft knee, current, unspecified tear type, subsequent encounter S83.242D [facility] [address] [id number] [address] [place] [phone] Dec, [place] [address] [id number] [address] [place] [address] Dec, [facility] [address] [id number] [address] [place] [address] Dec, [place] [address] [id number] [address] [place] [address] Nov, Shortness of breath R06.02 a nd Acute right-sided thoracic back pain M54.6 [place] [address] [id number] [address] [place] [address] Nov, Incomplete tear of right rot ator cuff M75.111 and Tear of medial meniscus of left knee, current, unspecified tear type, subsequent encounter S83.242D [place] [address] [id number] [address] [place] [address] Oct, Osteoarthritis of left knee, unspecified osteoarthritis type M17.12 [place] [address] [id number] [address] [place] [address] Sep, Pain in right shoulder M25.5 [address] [place] [address] [id number] [address] [place] [phone] Sep, Pain in right shoulder M25.5 11 and Poor vision H54.7 [place] [address] [id number] [address] [place] [phone] 15 Sep, 2016 [place] [address] [id number] [address] [place] [address] Sep, Arthritis M19.90 and Poor vi javier H54.7 [facility] [address] [id number] [address] [place] [address] [phone] Aug, Dental caries K02.9 [facility] [address] [id number] [address] [place] [address] [id number] Jul, Dental examination Z01.20 [facility] [address] [id number] [address] [place] [address] Jul, [facility] [address] [id number] [address] [place] [address] Jul, [facility] [address] [id number] [address] [place] [address] [phone] June, Dental examination Z01.20 [facility] [address] [id number] [address] [place] [address] [id number] June, Dental caries K02.9 [facility] [address] [id number] [address] [place] [address] [phone] May, Dental examination Z01.20 [facility] [address] [id number] [address] [place] [address] May, [facility] [address] [id number] [address] [place] [address] May, Bronchospasm J98.01 [facility] [address] [id number] [address] [place] [address] Apr, Bronchospasm J98.01 [facility] [address] [id number] [address] [place] [phone] Apr, [facility] [address] [id number] [address] [place] [address] Apr, Acute non-recurrent maxillar y sinusitis J01.00 and Viral syndrome B34.9 [facility] [address] [id number] [address] [place] [address] Apr, [facility] [address] [id number] [address] [place] [id number] Feb, Impingement syndrome of righ t shoulder M75.41 and Adhesive capsulitis of right shoulder M75.01 [facility] [address] [id number] [address] [place] [phone] Dec, Impingement syndrome of righ t shoulder M75.41 and Adhesive capsulitis of right shoulder M75.01 [facility] [address] [id number] [address] [place] [address] Nov, [facility] [address] [id number] [address] [place] [phone] Oct, [facility] [address] [id number] [address] [place] [phone] Oct, Impingement syndrome of righ t shoulder M75.41 [facility] [address] [id number] [address] [place] [address] Oct, [facility] [address] [id number] [address] [place] [address] Aug, Impingement syndrome of righ t shoulder M75.41 [facility] [address] [id number] [address] [place] [phone] Aug, Oral candidiasis B37.0 [facility] [address] [id number] [address] [place] [address] Jul, Arthritis M19.90 [facility] [address] [id number] [address] [place] [address] Jul, [facility] [address] [id number] [address] [place] [address] June, Arthritis M19.90 and Mixed h yperlipidemia E78.2 [place] [address] [id number] [address] [place] [address] Apr, Lumbar strain S39.012A [facility] [address] [id number] [address] [place] [address] [id number] Jan, Encounter for dental examina tion Z01.20 and Dental caries K02.9 [facility] [address] [id number] [address] [place] [address] [id number] Jan, Encounter for dental examina tion Z01.20 and Dental examination Z01.20 [facility] [address] [id number] [address] [place] [address] [id number] June, Dental examination V72.2 [facility] [address] [id number] [address] [place] [address] [id number] June, Dental examination V72.2 [facility] [address] [id number] [address] [place] [phone] May, [facility] [address] [id number] [address] [place] [phone] May, [facility] [address] [id number] [address] [place] [phone] Oct, [facility] [address] [id number] [address] [place] [phone] Oct, [facility] [address] [id number] [address] [place] [phone] Oct, [facility] [address] [id number] [address] [place] [id number] Oct, [facility] [address] [id number] [address] [place] [phone] Sep, [facility] [address] [id number] [address] [place] [phone] Sep, [facility] [address] [id number] [address] [place] [phone] Aug, [facility] [address] [id number] [address] [place] [phone] Aug, [facility] [address] [id number] [address] [place] [phone] Aug, [facility] [address] [id number] [address] [place] [phone] Aug, [facility] [address] [id number] [address] [place] [address], [place] [address] Aug, [facility] [address] [id number] [address] [place] [address], [place] [address] Aug, [facility] [address] [id number] [address] [place] [address], [place] [address] June, [facility] [address] [id number] [address] [place] [address], [place] [address] June, [facility] [address] [id number] [address] [place] [address], [place] [address] Jan, [facility] [address] [id number] [address] [place] [address], [place] [address] Jan, [facility] [address] [id number] [address] [place] [address], [place] [address] Oct, [facility] [address] [id number] [address] [place] [address], [place] [address] Oct, [facility] [address] [id number] [address] [place] [address], [place] [address] May, [facility] [address] [id number] [address] [place] [address], [place] [address] Mar, [facility] [address] [id number] [address] [place] [address], [place] [address] Nov, [facility] [address] [id number] [address] [place] [address], [place] [address] Oct, [facility] [address] [id number] [address] [place] [address], [place] [address] Aug, [facility] [address] [id number] [address] [place] [address], [place] [address] Aug, [facility] [address] [id number] [address] [place] [address], [place] [address] Aug, [facility] [address] [id number] [address] [place] [phone] 18 Aug, 2011 [facility] [address] [id number] [address] [place] [phone] 17 Aug, 2011 [facility] [address] [id number] [address] [place] [id number] Aug, [facility] [address] [id number] [address] [place] [address] Jul, [facility] [address] [id number] [address] [place] [phone] Jul, [facility] [address] [id number] [address] [place] [address] Jul, [facility] [address] [id number] [address] [place] [address] Jul, [facility] [address] [id number] [address] [place] [id number] Jul, [facility] [address] [id number] [address] [place] [address] June, [facility] [address] [id number] [address] [place] [phone] June, [facility] [address] [id number] [address] [place] [phone] June, [facility] [address] [id number] [address] [place] [phone] June, [facility] [address] [id number] [address] [place] [phone] June, IMMUNIZATIONS No Known Immunizations SOCIAL HISTORY Never Assessed REASON FOR VISIT TSH WB-ROSE PLAN OF CARE Activity Details Follow Up prn Reason: VITAL SIGNS Height 74 in 2017-06-09 Weight 296 lbs 2017-06-09 Temperature 98.3 degrees Fahrenheit 2017-06-09 Heart Rate 96 bpm 2017-06-09 Respiratory Rate 2017-06-09 BMI 38.00 kg/m2 2017-06-09 Blood pressure systolic 110 mmHg 2017-06-09 Blood pressure diastolic 74 mmHg 2017-06-09 MEDICATIONS Medication Instructions Dosage Frequency Start Date End Date Duration S tatus Oxygen Active Aspirin 81 81 MG Orally Once a day 1 tablet 24h Active Digoxin 250 MCG Orally Once a day 1 tablet 24h Active Penicillin V Potassium 500 MG Orally Four times a day 1 tablet 6h May, May, 10 day(s) Active Lisinopril 5 MG Orally Once a day 1 tablet 24h Active Furosemide Active ZyrTEC Active Proventil HFA 108 (90 Base) MCG/ACT Inhalation 4 times a day 2 p uffs as needed 6h Active Eliquis 5 mg Orally 2 times [...]
--- OUTSIDE RECORDS SUMMARY | 2019-05-02 13:00 | XMS REPORT ---
Author Author Brigiod FRANK Organization [facility] Address [address] [place] [address] Care Team Providers Care Hot Roll Laminator Name Role Phone VICK FRANK Unavailable PROBLEMS Type Condition ICD9-CM Code PNL60-ZK Code Onset Dates Condition S tatus SNOMED Code Problem Arthritis M19.90 Active 5976865 Problem Incomplete tear of right rotator cuff M75.111 Active 2249863 Problem Poor vision H54.7 Active 22376632 3 Problem Obstructive sleep apnea (adult) (pediatric) 327.23 Active 15264923 Problem Mixed hyperlipidemia E78.2 Active 806427291 Problem Multinodular goiter E04.2 Active 337840890 Problem Thyroid nodule E04.1 Active 59776 5005 Problem Persistent atrial fibrillation I48.1 Active 518980483 Problem Reactive depression F32.9 Active 64617746 Problem Atrial fibrillation I48.91 Active 84972591 Problem 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 Active [id number] ALLERGIES No Information ENCOUNTERS Encounter Location Date Diagnosis [place] [address] [facility] [id number] [address] [place] [phone] Sep, [facility] [address] [facility] [id number] [address] [place] [phone] Aug, Cough R05 and Acute combined systolic (congestive) 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 [facility] [address] [facility] [id number] [address] [place] [phone] June, Multinodular goiter E04.2 [facility] [address] [facility] [id number] [address] [place] [phone] June, Thyroid nodule E04.1 [facility] [address] [facility] [id number] [address] [place] [phone] May, [facility] [address] [facility] [id number] [address] [place] [phone] May, Abnormal TSH R94.6 [facility] [address] [id number] [address] [place] [id number] May, Dental examination Z01.20 [facility] [address] [facility] [id number] [address] [place] [phone] Apr, Atrial fibrillation I48.91 [facility] [address] [facility] [id number] [address] [place] [phone] Apr, [facility] [address] [facility] [id number] [address] [place] [phone] Apr, Pain of left breast N64.4 an d Encounter for immunization Z23 [facility] [address] [facility] [id number] [address] [place] [phone] Mar, Abnormal TSH R94.6 and Acute combined systolic (congestive) 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 [facility] [address] [facility] [id number] [address] [place] [phone] Mar, [facility] [address] [facility] [id number] [address] [place] [phone] Feb, [facility] [address] [facility] [id number] [address] [place] [phone] Feb, Persistent atrial fibrillati on I48.1 and Reactive depression F32.9 [facility] [address] [facility] [id number] [address] [place] [phone] Feb, [facility] [address] [facility] [id number] [address] [place] [phone] Feb, [facility] [address] [facility] [id number] [address] [place] [phone] Jan, [facility] [address] [facility] [id number] [address] [place] [phone] Jan, Tear of medial meniscus of l eft knee, current, unspecified tear type, subsequent encounter S83.242D [facility] [address] [id number] [address] [place] [phone] 30 Dec, 2016 [facility] [address] [id number] [address] [place] [phone] 06 Dec, 2016 [facility] [address] [id number] [address] [place] [phone] Dec, [facility] [address] [id number] [address] [place] [phone] Nov, Shortness of breath R06.02 a nd Acute right-sided thoracic back pain M54.6 [facility] [address] [id number] [address] [place] [id number] 19 Nov, 2016 Incomplete tear of right rot ator cuff M75.111 and Tear of medial meniscus of left knee, current, unspecified tear type, subsequent encounter S83.242D [facility] [address] [id number] [address] [place] [phone] 14 Oct, 2016 Osteoarthritis of left knee, unspecified osteoarthritis type M17.12 [facility] [address] [id number] [address] [place] [phone] 17 Sep, 2016 Pain in right shoulder M25.5 11 [facility] [address] [id number] [address] [place] [phone] 17 Sep, 2016 Pain in right shoulder M25.5 11 and Poor vision H54.7 [facility] [address] [id number] [address] [place] [phone] 15 Sep, 2016 [facility] [address] [id number] [address] [place] [phone] 10 Sep, 2016 Arthritis M19.90 and Poor vi javier H54.7 [facility] [address] [id number] [address] [place] [id number] Aug, Dental caries K02.9 [facility] [address] [id number] [address] [place] [phone] Jul, Dental examination Z01.20 [facility] [address] [id number] [address] [place] [phone] Jul, [facility] [address] [id number] [address] [place] [phone] Jul, [facility] [address] [id number] [address] [place] [phone] June, Dental examination Z01.20 [facility] [address] [id number] [address] [place] [id number] June, Dental caries K02.9 [facility] [address] [id number] [address] [place] [address] [id number] May, Dental examination Z01.20 [facility] [address] [id number] [address] [place] [phone] May, [facility] [address] [id number] [address] [place] [phone] May, Bronchospasm J98.01 [facility] [address] [id number] [address] [place] [phone] Apr, Bronchospasm J98.01 [facility] [address] [id number] [address] [place] [phone] Apr, [facility] [address] [id number] [address] [place] [phone] Apr, Acute non-recurrent maxillar y sinusitis J01.00 and Viral syndrome B34.9 [facility] [address] [id number] [address] [place] [phone] Apr, [facility] [address] [id number] [address] [place] [phone] Feb, Impingement syndrome of righ t shoulder M75.41 and Adhesive capsulitis of right shoulder M75.01 [facility] [address] [id number] [address] [place] [phone] Dec, Impingement syndrome of righ t shoulder M75.41 and Adhesive capsulitis of right shoulder M75.01 [facility] [address] [id number] [address] [place] [phone] Nov, [facility] [address] [id number] [address] [place] [phone] Oct, [facility] [address] [id number] [address] [place] [phone] Oct, Impingement syndrome of righ t shoulder M75.41 [facility] [address] [id number] [address] [place] [phone] 13 Oct, 2015 [facility] [address] [id number] [address] [place] [phone] Aug, Impingement syndrome of righ t shoulder M75.41 [facility] [address] [id number] [address] [place] [phone] Aug, Oral candidiasis B37.0 [facility] [address] [id number] [address] [place] [phone] Jul, Arthritis M19.90 [facility] [address] [id number] [address] [place] [phone] Jul, [facility] [address] [id number] [address] [place] [phone] June, Arthritis M19.90 and Mixed h yperlipidemia E78.2 [facility] [address] [id number] [address] [place] [phone] Apr, Lumbar strain S39.012A [facility] [address] [id number] [address] [place] [id number] Jan, Encounter for dental examina tion Z01.20 and Dental caries K02.9 [facility] [address] [id number] [address] [place] [address] [id number] Jan, Encounter for dental examina tion Z01.20 and Dental examination Z01.20 [facility] [address] [id number] [place] [id number] June, Dental examination V72.2 [facility] [address] [id number] [address] [place] [address] [id number] June, Dental examination V72.2 [facility] [address] [id number] [address] [place] [phone] 14 May, 2014 [facility] [address] [id number] [address] [place] [phone] May, [facility] [address] [id number] [address] [place] [address], [place] [phone] Oct, [facility] [address] [id number] [address] [place] [phone] Oct, [facility] [address] [id number] [address] [place] [address], [place] [phone] Oct, [facility] [address] [id number] [address] [place] [phone] Oct, [facility] [address] [id number] [address] [place] [address], [place] [phone] Sep, [facility] [address] [id number] [address] [place] [phone] Sep, [facility] [address] [id number] [address] [place] [address], [place] [phone] Aug, [facility] [address] [id number] [address] [place] [phone] Aug, [facility] [address] [id number] [address] [place] [phone] Aug, [facility] [address] [id number] [address] [place] [phone] Aug, [facility] [address] [id number] [address] [place] [phone] Aug, [facility] [place] [facility] [address] [id number] [address] [place] [address], [place] [phone] Aug, [facility] [address] [id number] [address] [place] [address], [place] [phone] June, [facility] [address] [id number] [address] [place] [address], [place] [phone] June, [facility] [address] [id number] [address] [place] [address], [place] [phone] Jan, [facility] [address] [id number] [address] [place] [address], [place] [phone] Jan, [facility] [address] [id number] [address] [place] [address], [place] [phone] Oct, [facility] [address] [id number] [address] [place] [address], [place] [phone] Oct, [facility] [address] [id number] [address] [place] [address], [place] [phone] May, [facility] [address] [id number] [address] [place] [address], [place] [address] Mar, [facility] [address] [id number] [address] [place] [address], [place] [phone] Nov, [facility] [address] [id number] [address] [place] [address], [place] [id number] Oct, [facility] [address] [id number] [address] [place] [address], [place] [phone] Aug, [facility] [address] [id number] [address] [place] [address], [place] [phone] Aug, [facility] [address] [id number] [address] [place] [address], [place] [phone] Aug, [facility] [address] [id number] [address] [place] [address], [place] [phone] Aug, [facility] [address] [id number] [address] [place] [phone] 17 Aug, 2011 [facility] [address] [id number] [address] [place] [phone] Aug, [facility] [address] [id number] [address] [place] [phone] Jul, [facility] [address] [id number] [address] [place] [phone] Jul, [facility] [address] [id number] [address] [place] [phone] Jul, [facility] [address] [id number] [address] [place] [phone] Jul, [facility] [address] [id number] [address] [place] [phone] Jul, [facility] [address] [id number] [address] [place] [phone] June, [facility] [address] [id number] [address] [place] [phone] June, [facility] [address] [id number] [address] [place] [phone] June, [facility] [address] [id number] [address] [place] [phone] June, [facility] [address] [id number] [address] [place] [phone] June, IMMUNIZATIONS No Known Immunizations SOCIAL HISTORY Never Assessed REASON FOR VISIT Repository Medication PLAN OF CARE VITAL SIGNS MEDICATIONS Unknown [...]
--- OUTSIDE RECORDS SUMMARY | 2019-05-02 13:01 | XMS REPORT ---
Author Author Brigido FRANK Organization [facility] Address [address] [place] [address] Care Team Providers Care It Help Desk Technician Name Role Phone VICK FRANK Unavailable PROBLEMS Type Condition ICD9-CM Code WIJ09-KN Code Onset Dates Condition S tatus SNOMED Code Problem Arthritis M19.90 Active 2644820 Problem Incomplete tear of right rotator cuff M75.111 Active 6800070 Problem Poor vision H54.7 Active 07548828 3 Problem Obstructive sleep apnea (adult) (pediatric) 327.23 Active 38195050 Problem Mixed hyperlipidemia E78.2 Active 953021707 Problem Multinodular goiter E04.2 Active 517958249 Problem Thyroid nodule E04.1 Active 12944 5005 Problem Persistent atrial fibrillation I48.1 Active 089306381 Problem Reactive depression F32.9 Active 95617036 Problem Atrial fibrillation I48.91 Active 92874975 Problem 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 Active [id number] ALLERGIES No Information ENCOUNTERS Encounter Location Date Diagnosis [facility] [address] [id number] [address] [place] [phone] June, Multinodular goiter E04.2 [facility] [address] [id number] [address] [place] [phone] June, Thyroid nodule E04.1 [facility] [address] [facility] [id number] [address] [place] [phone] May, [facility] [address] [id number] [address] [place] [phone] May, Abnormal TSH R94.6 [facility] [address] [facility] [id number] [address] [place] [address] [phone] May, Dental examination Z01.20 [place] [address] [address] Apr, Atrial fibrillation I48.91 [place] [address] [address] Apr, [place] [address] [address] Apr, Pain of left breast N64.4 an d Encounter for immunization Z23 [place] [address] [address] Mar, Abnormal TSH R94.6 and Acute combined systolic (congestive) 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 [place] [address] [address] Mar, [place] [address] [address] Feb, [place] [address] [address] Feb, Persistent atrial fibrillati on I48.1 and Reactive depression F32.9 [place] [address] [address] Feb, [place] [address] [address] Feb, [place] [address] [address] Jan, [place] [address] [address] Jan, Tear of medial meniscus of l eft knee, current, unspecified tear type, subsequent encounter S83.242D [place] [address] [place] [id number] [address] [place] [phone] Dec, [place] [address] [address] Dec, [facility] [address] [id number] [address] [place] [phone] Dec, [facility] [address] [id number] [address] [place] [phone] Nov, Shortness of breath R06.02 a nd Acute right-sided thoracic back pain M54.6 [facility] [address] [id number] [address] [place] [address] Nov, Incomplete tear of right rot ator cuff M75.111 and Tear of medial meniscus of left knee, current, unspecified tear type, subsequent encounter S83.242D [place] [address] [id number] [address] [place] [phone] 14 Oct, 2016 Osteoarthritis of left knee, unspecified osteoarthritis type M17.12 [place] [address] [id number] [address] [place] [address] Sep, Pain in right shoulder M25.5 [address] [place] [address] [id number] [address] [place] [phone] 17 Sep, 2016 Pain in right shoulder M25.5 11 and Poor vision H54.7 [place] [address] [id number] [address] [place] [phone] 15 Sep, 2016 [place] [address] [id number] [address] [place] [address] Sep, Arthritis M19.90 and Poor vi javier H54.7 [facility] [address] [id number] [address] [place] [address] [id number] Aug, Dental caries K02.9 [facility] [address] [id number] [address] [place] [id number] Jul, Dental examination Z01.20 [facility] [address] [id number] [address] [place] [id number] Jul, [place] [address] [id number] [address] [place] [id number] Jul, [facility] [address] [id number] [address] [place] [address] [id number] June, Dental examination Z01.20 [facility] [address] [id number] [address] [place] [address] [phone] June, Dental caries K02.9 [facility] [address] [id number] [address] [place] [address] [phone] May, Dental examination Z01.20 [facility] [address] [id number] [address] [place] [phone] May, [facility] [address] [id number] [address] [place] [phone] May, Bronchospasm J98.01 [facility] [address] [id number] [address] [place] [address] Apr, Bronchospasm J98.01 [facility] [address] [id number] [address] [place] [id number] Apr, [facility] [address] [id number] [address] [place] [id number] Apr, Acute non-recurrent maxillar y sinusitis J01.00 and Viral syndrome B34.9 [facility] [address] [id number] [address] [place] [id number] Apr, [facility] [address] [id number] [address] [place] [phone] Feb, Impingement syndrome of righ t shoulder M75.41 and Adhesive capsulitis of right shoulder M75.01 [facility] [address] [id number] [address] [place] [phone] Dec, Impingement syndrome of righ t shoulder M75.41 and Adhesive capsulitis of right shoulder M75.01 [facility] [address] [id number] [address] [place] [phone] Nov, [facility] [address] [id number] [address] [place] [id number] 22 Oct, 2015 [facility] [address] [id number] [address] [place] [id number] 22 Oct, 2015 Impingement syndrome of righ t shoulder M75.41 [facility] [address] [id number] [address] [place] [id number] 13 Oct, 2015 [facility] [address] [id number] [address] [place] [id number] Aug, Impingement syndrome of righ t shoulder M75.41 [facility] [address] [id number] [address] [place] [phone] Aug, Oral candidiasis B37.0 [facility] [address] [id number] [address] [place] [address] Jul, Arthritis M19.90 [facility] [address] [id number] [address] [place] [id number] Jul, [facility] [address] [id number] [address] [place] [phone] June, Arthritis M19.90 and Mixed h yperlipidemia E78.2 [facility] [address] [id number] [address] [place] [id number] Apr, Lumbar strain S39.012A [facility] [address] [id number] [place] [address] [id number] Jan, Encounter for dental examina tion Z01.20 and Dental caries K02.9 [facility] [address] [id number] [address] [place] [address] [id number] Jan, Encounter for dental examina tion Z01.20 and Dental examination Z01.20 [facility] [address] [id number] [address] [place] [address] [id number] June, Dental examination V72.2 [facility] [address] [id number] [address] [place] [address] [id number] June, Dental examination V72.2 [facility] [address] [id number] [address] [place] [address], [place] [address] 14 May, 2014 [facility] [address] [id number] [address] [place] [address], [place] [address] May, [facility] [address] [id number] [address] [place] [address], [place] [address] Oct, [facility] [address] [id number] [address] [place] [address], [place] [address] Oct, [facility] [address] [id number] [address] [place] [address], [place] [address] Oct, [facility] [address] [id number] [address] [place] [address], [place] [address] Oct, [facility] [address] [id number] [address] [place] [address], [place] [address] Sep, [facility] [address] [id number] [address] [place] [address], [place] [address] Sep, [facility] [address] [id number] [address] [place] [address], [place] [address] Aug, [facility] [address] [id number] [address] [place] [address], [place] [address] Aug, [facility] [address] [id number] [address] [place] [address], [place] [address] Aug, [facility] [address] [id number] [address] [place] [address], [place] [address] Aug, [facility] [address] [id number] [address] [place] [address], [place] [address] Aug, [facility] [address] [id number] [address] [place] [address], [place] [address] Aug, [facility] [address] [id number] [address] [place] [address], [place] [address] June, [facility] [address] [id number] [address] [place] [address], [place] [address] June, [facility] [address] [id number] [address] [place] [address], [place] [address] Jan, [facility] [address] [id number] [address] [place] [address], [place] [address] Jan, [facility] [address] [id number] [address] [place] [address], [place] [address] Oct, [facility] [address] [id number] [address] [place] [address], [place] [address] Oct, [facility] [address] [id number] [address] [place] [address], [place] [address] May, [facility] [address] [id number] [address] [place] [address], [place] [address] Mar, [facility] [address] [id number] [address] [place] [address], [place] [address] Nov, [facility] [address] [id number] [address] [place] [address], [place] [address] Oct, [facility] [address] [id number] [address] [place] [address], [place] [address] Aug, [facility] [address] [id number] [address] [place] [address], [place] [address] Aug, [facility] [address] [id number] [address] [place] [address], [place] [address] Aug, [facility] [address] [id number] [address] [place] [address], [place] [address] Aug, [facility] [address] [id number] [address] [place] [address], [place] [address] Aug, [facility] [address] [id number] [address] [place] [address], [place] [id number] Aug, [facility] [address] [id number] [address] [place] [address], [place] [address] Jul, [facility] [address] [id number] [address] [place] [phone] Jul, [facility] [address] [id number] [address] [place] [phone] Jul, [facility] [address] [id number] [address] [place] [id number] Jul, [facility] [address] [facility] [id number] [address] [place] [phone] Jul, [facility] [address] [id number] [address] [place] [id number] June, [facility] [address] [facility] [id number] [address] [place] [id number] June, [facility] [address] [facility] [id number] [address] [place] [id number] June, [facility] [address] [facility] [id number] [address] [place] [id number] June, [facility] [address] [facility] [id number] [address] [place] [phone] June, IMMUNIZATIONS No Known Immunizations SOCIAL HISTORY Never Assessed REASON FOR VISIT Needs referral PLAN OF CARE VITAL SIGNS MEDICATIONS Unknown [...]
--- OUTSIDE RECORDS SUMMARY | 2019-05-02 13:01 | XMS REPORT ---
Author Author Brigido WHELAN Organization [facility] Address [address] [place] [address] Care Team Providers Care Manager Acquisition Name Role Phone PAMELA WHELAN Unavailable PROBLEMS Type Condition ICD9-CM Code ZAH37-UG Code Onset Dates Condition S tatus SNOMED Code Problem Arthritis M19.90 Active 5321118 Problem Incomplete tear of right rotator cuff M75.111 Active 3515387 Problem Poor vision H54.7 Active 03348272 3 Problem Obstructive sleep apnea (adult) (pediatric) 327.23 Active 20048574 Problem Mixed hyperlipidemia E78.2 Active 532630445 Problem Multinodular goiter E04.2 Active 127825292 Problem Thyroid nodule E04.1 Active 66139 5005 Problem Persistent atrial fibrillation I48.1 Active 116517408 Problem Reactive depression F32.9 Active 66180262 Problem Atrial fibrillation I48.91 Active 30095486 Problem 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 Active [id number] ALLERGIES No Information ENCOUNTERS Encounter Location Date Diagnosis [facility] [address] [facility] [id number] [address] [place] [address] June, Multinodular goiter E04.2 [facility] [address] [facility] [id number] [address] [place] [address] June, Thyroid nodule E04.1 [facility] [address] [facility] [id number] [address] [place] [address] May, [facility] [address] [facility] [id number] [address] [place] [address] May, Abnormal TSH R94.6 [facility] [address] [facility] [id number] [address] [place] [address] [phone] May, Dental examination Z01.20 [place] [address] [place] [id number] [address] [place] [address] Apr, Atrial fibrillation I48.91 [facility] [address] [address] Apr, [facility] [address] [place] [id number] [place] [phone] Apr, Pain of left breast N64.4 an d Encounter for immunization Z23 [facility] [address] [address] Mar, Abnormal TSH R94.6 and Acute combined systolic (congestive) 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 [place] [address] [address] Mar, [facility] [address] [phone] Feb, [facility] [address] [address] Feb, Persistent atrial fibrillati on I48.1 and Reactive depression F32.9 [place] [address] [id number] Feb, [facility] [address] [phone] Feb, [facility] [address] [address] Jan, [facility] [address] [place] [id number] [address] [place] [address] Jan, Tear of medial meniscus of l eft knee, current, unspecified tear type, subsequent encounter S83.242D [facility] [address] [place] [id number] [address] [place] [address] Dec, [facility] [address] [address] Dec, [facility] [address] [id number] [address] [place] [address] Dec, [facility] [address] [id number] [address] [place] [address] Nov, Shortness of breath R06.02 a nd Acute right-sided thoracic back pain M54.6 [facility] [address] [id number] [address] [place] [address] Nov, Incomplete tear of right rot ator cuff M75.111 and Tear of medial meniscus of left knee, current, unspecified tear type, subsequent encounter S83.242D [place] [address] [id number] [address] [place] [address] 14 Oct, 2016 Osteoarthritis of left knee, unspecified osteoarthritis type M17.12 [place] [address] [id number] [address] [place] [address] 17 Sep, 2016 Pain in right shoulder M25.5 11 [place] [address] [id number] [address] [place] [id number] 17 Sep, 2016 Pain in right shoulder M25.5 11 and Poor vision H54.7 [place] [address] [id number] [address] [place] [id number] 15 Sep, 2016 [place] [address] [id number] [address] [place] [phone] Sep, Arthritis M19.90 and Poor vi javier H54.7 [facility] [address] [id number] [address] [place] [phone] Aug, Dental caries K02.9 [facility] [address] [id number] [address] [place] [address] [id number] Jul, Dental examination Z01.20 [facility] [address] [id number] [address] [place] [phone] Jul, [place] [address] [id number] [address] [place] [address] Jul, [facility] [address] [id number] [address] [place] [phone] June, Dental examination Z01.20 [facility] [address] [id number] [address] [place] [address] [phone] June, Dental caries K02.9 [facility] [address] [id number] [address] [place] [address] [phone] May, Dental examination Z01.20 [facility] [address] [id number] [address] [place] [address] May, [facility] [address] [id number] [address] [place] [address] May, Bronchospasm J98.01 [facility] [address] [id number] [address] [place] [address] Apr, Bronchospasm J98.01 [facility] [address] [id number] [address] [place] [address] Apr, [facility] [address] [id number] [address] [place] [phone] Apr, Acute non-recurrent maxillar y sinusitis J01.00 and Viral syndrome B34.9 [facility] [address] [id number] [address] [place] [phone] Apr, [facility] [address] [id number] [address] [place] [phone] Feb, Impingement syndrome of righ t shoulder M75.41 and Adhesive capsulitis of right shoulder M75.01 [facility] [address] [id number] [address] [place] [address] Dec, Impingement syndrome of righ t shoulder M75.41 and Adhesive capsulitis of right shoulder M75.01 [facility] [address] [id number] [address] [place] [phone] Nov, [facility] [address] [id number] [address] [place] [phone] Oct, [facility] [address] [id number] [address] [place] [phone] 22 Oct, 2015 Impingement syndrome of righ t shoulder M75.41 [facility] [address] [id number] [address] [place] [phone] 13 Oct, 2015 [facility] [address] [id number] [address] [place] [phone] Aug, Impingement syndrome of righ t shoulder M75.41 [facility] [address] [id number] [address] [place] [address] Aug, Oral candidiasis B37.0 [facility] [address] [id number] [address] [place] [phone] Jul, Arthritis M19.90 [facility] [address] [id number] [address] [place] [phone] Jul, [facility] [address] [id number] [address] [place] [phone] June, Arthritis M19.90 and Mixed h yperlipidemia E78.2 [facility] [address] [id number] [address] [place] [address] Apr, Lumbar strain S39.012A [facility] [id number] [place] [address] [id number] Jan, Encounter for dental examina tion Z01.20 and Dental caries K02.9 [facility] [address] [id number] [address] [place] [address] [id number] Jan, Encounter for dental examina tion Z01.20 and Dental examination Z01.20 [facility] [address] [id number] [address] [place] [address] [id number] June, Dental examination V72.2 [facility] [address] [id number] [address] [place] [address] [id number] June, Dental examination V72.2 [facility] [address] [id number] [facility] [place] [address] 14 May, 2014 [facility] [address] [id number] [address] [place] [address], [place] [address] 13 May, 2014 [facility] [address] [id number] [address] [place] [address], [place] [address] Oct, [facility] [address] [id number] [address] [place] [address], [place] [address] Oct, [facility] [address] [id number] [address] [place] [address], [place] [address] Oct, [facility] [address] [id number] [address] [place] [address], [place] [address] Oct, [facility] [address] [id number] [address] [place] [address], [place] [address] Sep, [facility] [address] [id number] [address] [place] [address], [place] [address] Sep, [facility] [address] [id number] [address] [place] [address], [place] [address] Aug, [facility] [address] [id number] [address] [place] [address], [place] [address] Aug, [facility] [address] [id number] [address] [place] [address], [place] [address] Aug, [facility] [address] [id number] [address] [place] [address], [place] [address] Aug, [facility] [address] [id number] [address] [place] [address], [place] [address] Aug, [facility] [address] [id number] [address] [place] [address], [place] [address] Aug, [facility] [address] [id number] [address] [place] [address], [place] [address] June, [facility] [address] [id number] [address] [place] [address] [address] June, [facility] [address] [id number] [address] [place] [address], [place] [address] Jan, [facility] [address] [id number] [address] [place] [address], [place] [address] Jan, [facility] [address] [id number] [address] [place] [address], [place] [address] Oct, [facility] [address] [id number] [address] [place] [address], [place] [address] Oct, [facility] [address] [id number] [address] [place] [address], [place] [address] May, [facility] [address] [id number] [address] [place] [address], [place] [address] Mar, [facility] [address] [id number] [address] [place] [address], [place] [address] Nov, [facility] [address] [id number] [address] [place] [address], [place] [address] Oct, [facility] [address] [id number] [address] [place] [address], [place] [address] Aug, [facility] [address] [id number] [address] [place] [address], [place] [address] Aug, [facility] [address] [id number] [address] [place] [address], [place] [address] Aug, [facility] [address] [id number] [address] [place] [address], [place] [address] Aug, [facility] [address] [id number] [address] [place] [address], [place] [address] Aug, [facility] [address] [id number] [address] [place] [address], [place] [address] Aug, [facility] [address] [id number] [address] [place] [address], [place] [address] Jul, [facility] [address] [id number] [address] [place] [id number] Jul, [facility] [address] [id number] [address] [place] [id number] Jul, [facility] [address] [id number] [address] [place] [phone] Jul, [facility] [address] [id number] [address] [place] [phone] Jul, [facility] [address] [id number] [address] [place] [id number] June, [facility] [address] [facility] [id number] [address] [place] [address] June, [facility] [address] [facility] [id number] [address] [place] [phone] June, [facility] [address] [facility] [id number] [address] [place] [phone] June, [facility] [address] [facility] [id number] [address] [place] [phone] June, IMMUNIZATIONS No Known Immunizations SOCIAL HISTORY Never Assessed REASON FOR VISIT Waiting for call back PLAN OF CARE VITAL SIGNS MEDICATIONS Unknown [...]
--- OUTSIDE RECORDS SUMMARY | 2019-05-02 13:01 | XMS REPORT ---
Author Author Brigido FRANK Organization [facility] Address [address] [place] [address] Care Team Providers Care Control Systems Engineer Name Role Phone VICK FRANK Unavailable PROBLEMS Type Condition ICD9-CM Code ZSH20-DQ Code Onset Dates Condition S tatus SNOMED Code Problem Arthritis M19.90 Active 2194233 Problem Incomplete tear of right rotator cuff M75.111 Active 2404748 Problem Poor vision H54.7 Active 70008534 3 Problem Obstructive sleep apnea (adult) (pediatric) 327.23 Active 70790470 Problem Mixed hyperlipidemia E78.2 Active 176097748 Problem Multinodular goiter E04.2 Active 791932785 Problem Thyroid nodule E04.1 Active 87129 5005 Problem Persistent atrial fibrillation I48.1 Active 027646138 Problem Reactive depression F32.9 Active 73744772 Problem Atrial fibrillation I48.91 Active 94119094 Problem 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 Active [id number] ALLERGIES No Information ENCOUNTERS Encounter Location Date Diagnosis [facility] [id number] [address] [place] [phone] June, Multinodular goiter E04.2 [facility] [address] [id number] [address] [place] [phone] June, Thyroid nodule E04.1 [facility] [address] [facility] [id number] [address] [place] [address] May, [facility] [address] [id number] [address] [place] [address] May, Abnormal TSH R94.6 [facility] [address] [facility] [id number] [address] [place] [address] [id number] May, Dental examination Z01.20 [place] [address] [address] Apr, Atrial fibrillation I48.91 [place] [address] [address] Apr, [place] [address] [address] Apr, Pain of left breast N64.4 an d Encounter for immunization Z23 [place] [address] [address] Mar, Abnormal TSH R94.6 and Acute combined systolic (congestive) 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 [place] [address] [address] Mar, [place] [address] [address] Feb, [place] [address] [address] Feb, Persistent atrial fibrillati on I48.1 and Reactive depression F32.9 [place] [address] [address] Feb, [place] [address] [address] Feb, [place] [address] [address] Jan, [place] [address] [address] Jan, Tear of medial meniscus of l eft knee, current, unspecified tear type, subsequent encounter S83.242D [place] [address] [place] [id number] [address] [place] [phone] Dec, [place] [address] [address] Dec, [facility] [address] [id number] [address] [place] [address] Dec, [facility] [address] [id number] [address] [place] [address] Nov, Shortness of breath R06.02 a nd Acute right-sided thoracic back pain M54.6 [facility] [address] [id number] [address] [place] [address] Nov, Incomplete tear of right rot ator cuff M75.111 and Tear of medial meniscus of left knee, current, unspecified tear type, subsequent encounter S83.242D [place] [address] [id number] [address] [place] [address] 14 Oct, 2016 Osteoarthritis of left knee, unspecified osteoarthritis type M17.12 [place] [address] [id number] [address] [place] [address] Sep, Pain in right shoulder M25.5 [address] [place] [id number] [id number] [address] [place] [id number] 17 Sep, 2016 Pain in right shoulder M25.5 11 and Poor vision H54.7 [place] [address] [id number] [address] [place] [address] 15 Sep, 2016 [place] [address] [id number] [address] [place] [id number] Sep, Arthritis M19.90 and Poor vi javier H54.7 [facility] [address] [id number] [address] [place] [id number] Aug, Dental caries K02.9 [facility] [address] [id number] [address] [place] [address] [id number] Jul, Dental examination Z01.20 [facility] [address] [id number] [address] [place] [phone] Jul, [place] [address] [id number] [address] [place] [phone] Jul, [facility] [address] [id number] [address] [place] [address] [id number] June, Dental examination Z01.20 [facility] [address] [id number] [address] [place] [address] [id number] June, Dental caries K02.9 [facility] [address] [id number] [address] [place] [address] [id number] May, Dental examination Z01.20 [facility] [address] [id number] [address] [place] [phone] May, [facility] [address] [id number] [address] [place] [phone] May, Bronchospasm J98.01 [facility] [address] [id number] [address] [place] [phone] Apr, Bronchospasm J98.01 [facility] [address] [id number] [address] [place] [phone] Apr, [facility] [address] [id number] [address] [place] [phone] Apr, Acute non-recurrent maxillar y sinusitis J01.00 and Viral syndrome B34.9 [facility] [address] [id number] [address] [place] [address] Apr, [facility] [address] [id number] [address] [place] [phone] Feb, Impingement syndrome of righ t shoulder M75.41 and Adhesive capsulitis of right shoulder M75.01 [facility] [address] [id number] [address] [place] [address] Dec, Impingement syndrome of righ t shoulder M75.41 and Adhesive capsulitis of right shoulder M75.01 [facility] [address] [id number] [address] [place] [phone] Nov, [facility] [address] [id number] [address] [place] [id number] 22 Oct, 2015 [facility] [address] [id number] [address] [place] [id number] 22 Oct, 2015 Impingement syndrome of righ t shoulder M75.41 [facility] [address] [id number] [address] [place] [id number] 13 Oct, 2015 [facility] [address] [id number] [address] [place] [phone] Aug, Impingement syndrome of righ t shoulder M75.41 [facility] [address] [id number] [address] [place] [phone] Aug, Oral candidiasis B37.0 [facility] [address] [id number] [address] [place] [phone] Jul, Arthritis M19.90 [facility] [address] [id number] [address] [place] [id number] Jul, [facility] [address] [id number] [address] [place] [id number] June, Arthritis M19.90 and Mixed h yperlipidemia E78.2 [facility] [address] [id number] [address] [place] [address] Apr, Lumbar strain S39.012A [facility] [address] [id number] [place] [address] [id number] Jan, Encounter for dental examina tion Z01.20 and Dental caries K02.9 [facility] [address] [id number] [address] [place] [address] [id number] Jan, Encounter for dental examina tion Z01.20 and Dental examination Z01.20 [facility] [address] [id number] [address] [place] [address] [id number] June, Dental examination V72.2 [facility] [address] [id number] [address] [place] [address] [id number] June, Dental examination V72.2 [facility] [address] [id number] [address] [place] [address], [place] [address] 14 May, 2014 [facility] [address] [id number] [address] [place] [address], [place] [address] May, [facility] [address] [id number] [address] [place] [address], [place] [address] Oct, [facility] [address] [id number] [address] [place] [address], [place] [address] Oct, [facility] [address] [id number] [address] [place] [address], [place] [address] Oct, [facility] [address] [id number] [address] [place] [address], [place] [address] Oct, [facility] [address] [id number] [address] [place] [address], [place] [address] Sep, [facility] [address] [id number] [address] [place] [address], [place] [address] Sep, [facility] [address] [id number] [address] [place] [address], [place] [address] Aug, [facility] [address] [id number] [address] [place] [address], [place] [address] Aug, [facility] [address] [id number] [address] [place] [address], [place] [address] Aug, [facility] [address] [id number] [address] [place] [address], [place] [address] Aug, [facility] [address] [id number] [address] [place] [address], [place] [address] Aug, [facility] [address] [id number] [address] [place] [address], [place] [address] Aug, [facility] [address] [id number] [address] [place] [address], [place] [address] June, [facility] [address] [id number] [address] [place] [address], [place] [address] June, [facility] [address] [id number] [address] [place] [address], [place] [address] Jan, [facility] [address] [id number] [address] [place] [address], [place] [address] Jan, [facility] [address] [id number] [address] [place] [address], [place] [address] Oct, [facility] [address] [id number] [address] [place] [address], [place] [address] Oct, [facility] [address] [id number] [address] [place] [address], [place] [address] May, [facility] [address] [id number] [address] [place] [address], [place] [address] Mar, [facility] [address] [id number] [address] [place] [address], [place] [address] Nov, [facility] [address] [id number] [address] [place] [address], [place] [address] Oct, [facility] [address] [id number] [address] [place] [address], [place] [address] Aug, [facility] [address] [id number] [address] [place] [address], [place] [address] Aug, [facility] [address] [id number] [address] [place] [address], [place] [address] Aug, [facility] [address] [id number] [address] [place] [address], [place] [address] Aug, [facility] [address] [id number] [address] [place] [address], [place] [address] Aug, [facility] [address] [id number] [address] [place] [address], [place] [address] Aug, [facility] [address] [id number] [address] [place] [address], [place] [address] Jul, [facility] [address] [id number] [address] [place] [phone] Jul, [facility] [address] [id number] [address] [place] [id number] Jul, [facility] [address] [id number] [address] [place] [id number] Jul, [facility] [address] [facility] [id number] [address] [place] [id number] Jul, [facility] [address] [id number] [address] [place] [id number] June, [facility] [address] [facility] [id number] [address] [place] [phone] June, [facility] [address] [facility] [id number] [address] [place] [id number] June, [facility] [address] [facility] [id number] [address] [place] [phone] June, [facility] [address] [facility] [id number] [address] [place] [address] June, IMMUNIZATIONS No Known Immunizations SOCIAL HISTORY Never Assessed REASON FOR VISIT Other PLAN OF CARE VITAL SIGNS MEDICATIONS Unknown [...]
--- OUTSIDE RECORDS SUMMARY | 2019-05-02 13:01 | XMS REPORT ---
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 Role Phone NIKHIL TAN Unavailable PROBLEMS Type Condition ICD9-CM Code UIT31-RZ Code Onset Dates Condition S tatus SNOMED Code Problem Obstructive sleep apnea (adult) (pediatric) 327.23 Active 31079146 Problem Arthritis M19.90 Active 8003408 Problem Mixed hyperlipidemia E78.2 Active 190206302 Problem Atrial fibrillation I48.91 Active 08439339 Problem 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 Active 837042385925956 Problem Incomplete tear of right rotator cuff M75.111 Active 4970753 Problem Poor vision H54.7 Active 33388624 3 Problem Reactive depression F32.9 Active 07305765 Problem Persistent atrial fibrillation I48.1 Active 018042165 ALLERGIES Substance Reaction Event Type Date Status Indomethacin Unknown Drug Allergy Aug, Active Clindamycin HCl Unknown Drug Allergy Aug, Active Cayenne Pepper Tongue Swelling Drug Allergy Aug, Active ENCOUNTERS Encounter Location Date Diagnosis [place] [address] [place] [id number] [place] [phone] May, [place] [id number] [address] [place] [address] Apr, Atrial fibrillation I48.91 [facility] [address] [facility] [id number] [address] [place] [address] Apr, [place] [id number] [address] [place] [phone] Apr, Pain of left breast N64.4 an d Encounter for immunization Z23 [place] [facility] [id number] [address] [place] [address] Mar, Abnormal TSH R94.6 and Acute combined systolic (congestive) 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 [facility] [address] [id number] [address] [place] [address] Mar, [facility] [address] [facility] [id number] [address] [place] [address] Feb, [facility] [address] [id number] [address] [place] [address] Feb, Persistent atrial fibrillati on I48.1 and Reactive depression F32.9 [facility] [address] [id number] [address] [place] [address] Feb, [facility] [address] [id number] [address] [place] [address] Feb, [place] [address] [facility] [id number] [address] [place] [phone] Jan, [place] [address] [facility] [id number] [address] [place] [address] Jan, Tear of medial meniscus of l eft knee, current, unspecified tear type, subsequent encounter S83.242D [place] [address] [facility] [id number] [address] [place] [address] Dec, [place] [address] [facility] [id number] [address] [place] [phone] Dec, [place] [address] [facility] [id number] [address] [place] [address] Dec, [facility] [address] [facility] [id number] [address] [place] [phone] Nov, Shortness of breath R06.02 a nd Acute right-sided thoracic back pain M54.6 [facility] [address] [facility] [id number] [address] [place] [address] Nov, Incomplete tear of right rot ator cuff M75.111 and Tear of medial meniscus of left knee, current, unspecified tear type, subsequent encounter S83.242D [facility] [address] [id number] [address] [place] [address] 14 Oct, 2016 Osteoarthritis of left knee, unspecified osteoarthritis type M17.12 [facility] [address] [id number] [address] [place] [phone] 17 Sep, 2016 Pain in right shoulder M25.5 11 [facility] [address] [id number] [address] [place] [phone] 17 Sep, 2016 Pain in right shoulder M25.5 11 and Poor vision H54.7 [facility] [address] [id number] [address] [place] [phone] 15 Sep, 2016 [facility] [address] [id number] [address] [place] [address] Sep, Arthritis M19.90 and Poor vi javier H54.7 [facility] [address] [id number] [address] [place] [phone] Aug, Dental caries K02.9 [facility] [address] [id number] [address] [place] [id number] Jul, Dental examination Z01.20 [facility] [address] [id number] [address] [place] [phone] Jul, [facility] [address] [id number] [address] [place] [id number] Jul, [facility] [address] [id number] [address] [place] [address] [id number] June, Dental examination Z01.20 [facility] [address] [id number] [address] [place] [address] [phone] June, Dental caries K02.9 [facility] [address] [id number] [address] [place] [address] [phone] May, Dental examination Z01.20 [facility] [address] [id number] [address] [place] [phone] May, [facility] [address] [id number] [address] [place] [address] May, Bronchospasm J98.01 [facility] [address] [id number] [address] [place] [phone] Apr, Bronchospasm J98.01 [facility] [address] [id number] [address] [place] [phone] Apr, [facility] [address] [id number] [address] [place] [phone] Apr, Acute non-recurrent maxillar y sinusitis J01.00 and Viral syndrome B34.9 [facility] [address] [id number] [address] [place] [phone] Apr, [facility] [address] [id number] [address] [place] [phone] Feb, Impingement syndrome of righ t shoulder M75.41 and Adhesive capsulitis of right shoulder M75.01 [facility] [address] [id number] [address] [place] [phone] Dec, Impingement syndrome of righ t shoulder M75.41 and Adhesive capsulitis of right shoulder M75.01 [facility] [address] [id number] [address] [place] [phone] Nov, [facility] [address] [id number] [address] [place] [phone] Oct, [facility] [address] [id number] [address] [place] [phone] Oct, Impingement syndrome of righ t shoulder M75.41 [facility] [address] [id number] [address] [place] [phone] Oct, [facility] [address] [id number] [address] [place] [id number] Aug, Impingement syndrome of righ t shoulder M75.41 [facility] [address] [id number] [address] [place] [phone] Aug, Oral candidiasis B37.0 [facility] [address] [id number] [address] [place] [phone] Jul, Arthritis M19.90 [facility] [address] [id number] [address] [place] [phone] Jul, [facility] [address] [id number] [address] [place] [phone] June, Arthritis M19.90 and Mixed h yperlipidemia E78.2 [facility] [address] [id number] [address] [place] [address] Apr, Lumbar strain S39.012A [facility] [address] [id number] [address] [place] [address] [phone] Jan, Encounter for dental examina tion Z01.20 and Dental caries K02.9 [facility] [address] [id number] [address] [place] [address] [phone] Jan, Encounter for dental examina tion Z01.20 and Dental examination Z01.20 [facility] [address] [id number] [address] [place] [address] [phone] June, Dental examination V72.2 [facility] [address] [id number] [address] [place] [address] [id number] June, Dental examination V72.2 [facility] [address] [id number] [address] [place] [phone] May, [facility] [address] [id number] [address] [place] [phone] May, [facility] [address] [id number] [address] [place] [phone] Oct, [facility] [address] [id number] [address] [place] [phone] Oct, [facility] [address] [id number] [address] [place] [phone] Oct, [facility] [address] [id number] [address] [place] [address], [place] [phone] Oct, [facility] [address] [id number] [address] [place] [address], [place] [address] Sep, [facility] [address] [id number] [address] [place] [address], [place] [address] Sep, [facility] [address] [id number] [address] [place] [address], [place] [address] Aug, [facility] [address] [id number] [address] [place] [address], [place] [id number] Aug, [facility] [address] [id number] [address] [place] [address], [place] [address] Aug, [facility] [address] [id number] [address] [place] [address], [place] [address] Aug, [facility] [address] [id number] [address] [place] [address], [place] [address] Aug, [facility] [address] [id number] [address] [place] [address], [place] [phone] Aug, [facility] [address] [id number] [address] [place] [address], [place] [address] June, [facility] [address] [id number] [address] [place] [address], [place] [address] June, [facility] [address] [id number] [address] [place] [address], [place] [address] Jan, [facility] [address] [id number] [address] [place] [address], [place] [address] Jan, [facility] [address] [id number] [address] [place] [address], [place] [address] Oct, [facility] [address] [id number] [address] [place] [address], [place] [address] Oct, [facility] [address] [id number] [address] [place] [address], [place] [address] May, [facility] [address] [id number] [address] [place] [address], [place] [address] Mar, [facility] [address] [id number] [address] [place] [address], [place] [address] Nov, [facility] [address] [id number] [address] [place] [address], [place] [address] Oct, [facility] [address] [id number] [address] [place] [address], [place] [address] Aug, [facility] [address] [id number] [address] [place] [address], [place] [address] Aug, [facility] [address] [id number] [address] [place] [address], [place] [address] Aug, [facility] [address] [id number] [address] [place] [address], [place] [address] Aug, [facility] [address] [id number] [address] [place] [address], [place] [address] Aug, [facility] [address] [id number] [address] [place] [address], [place] [address] Aug, [facility] [address] [id number] [address] [place] [address], [place] [address] Jul, [facility] [address] [id number] [address] [place] [address], [place] [address] Jul, [facility] [address] [id number] [address] [place] [address], [place] [address] Jul, [facility] [address] [id number] [address] [place] [address], [place] [address] Jul, [facility] [address] [id number] [address] [place] [address], [place] [address] Jul, [facility] [address] [id number] [address] [place] [address], [place] [address] June, [facility] [address] [id number] [address] [place] [phone] June, [facility] [address] [facility] [id number] [address] [place] [phone] June, [facility] [address] [facility] [id number] [address] [place] [phone] June, [facility] [address] [facility] [id number] [address] [place] [phone] June, IMMUNIZATIONS No Known Immunizations SOCIAL HISTORY Never Assessed REASON FOR VISIT TE PLAN OF CARE Activity Details Follow Up prn Reason:Pt. will call for appointment VITAL SIGNS Height 74 in 2016-09-08 Blood pressure systolic 127 mmHg 2016-09-08 Blood pressure diastolic 74 mmHg 2016-09-08 MEDICATIONS Medication Instructions Dosage Frequency Start Date End Date Duration S tatus Urea 20 % 1 tomasa by Topical route 1 time per day Aug, Active Albuterol Sulfate 90 mcg/actuation Inhalation every 4 hrs, PRN 2 pu ff May, Active Ibuprofen 800 MG Orally Three times a day, pc 1 tablet 20 Active Potassium 99 MG Orally Once a day 1 tablet 24h Active Hydrocodone-Acetaminophen 7.5-325 MG Orally every 6 hrs 1 tablet as needed 6h Apr, Active Zithromax 250 MG Orally Once a day 2 tablets on the fi rst day, then 1 tablet daily for 4 days 24h 5 day(s) Active [place] 5-325 MG Orally every 6 hrs 1 tablet as needed 6h 4 days Active Naproxen 500 mg take 1 tablet (500 m g) by oral route 2 times per day with food Aug, Active Triamcinolone Acetonide 0.1 % Externally Twice a day 1 appli cation to affected area 12h 0 days Active Tramadol HCl 50 MG Orally every 6 hrs 1 tablet as needed 6h as needed Active Albuterol Active RESULTS No Results PROCEDURES Procedure Date Ordered Result Body Site EXTRAC ERUPTED TOOTH/EXPOSED ROOT September 08, 2016 INSTRUCTIONS MEDICATIONS ADMINISTERED No Known Medications MEDICAL (GENERAL) HISTORY Type Description Date Medical History heart murmur Medical History cancer-bladder Medical History asthma Medical History bronchitis Surgical History Cancer was removed from bladder 2009 Hospitalization History Pneumonia 196 Hospitalization History Heart Attack 2017
--- OUTSIDE RECORDS SUMMARY | 2019-05-02 13:01 | XMS REPORT ---
Author Author Brigido ANDRADE Organization [facility] Address [address] [place] [address] Care Team Providers Care Equine Vet Name Role Phone CARROL ANDRADE Unavailable PROBLEMS Type Condition ICD9-CM Code CHK18-FC Code Onset Dates Condition S tatus SNOMED Code Problem Arthritis M19.90 Active 4284748 Problem Incomplete tear of right rotator cuff M75.111 Active 9021240 Problem Poor vision H54.7 Active 19155783 3 Problem Obstructive sleep apnea (adult) (pediatric) 327.23 Active 28112521 Problem Mixed hyperlipidemia E78.2 Active 820587303 Problem Multinodular goiter E04.2 Active 329074139 Problem Thyroid nodule E04.1 Active 06852 5005 Problem Persistent atrial fibrillation I48.1 Active 976715503 Problem Reactive depression F32.9 Active 29580116 Problem Atrial fibrillation I48.91 Active 65214019 Problem 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 Active [id number] ALLERGIES No Information ENCOUNTERS Encounter Location Date Diagnosis [facility] [address] [id number] [address] [place] [address] June, Multinodular goiter E04.2 [facility] [address] [id number] [address] [place] [address] June, Thyroid nodule E04.1 [facility] [address] [facility] [id number] [address] [place] [address] May, [facility] [address] [id number] [address] [place] [address] May, Abnormal TSH R94.6 [facility] [address] [facility] [id number] [address] [place] [address] [id number] May, Dental examination Z01.20 [place] [address] [address] Apr, Atrial fibrillation I48.91 [place] [address] [address] Apr, [place] [address] [address] Apr, Pain of left breast N64.4 an d Encounter for immunization Z23 [place] [address] [address] Mar, Abnormal TSH R94.6 and Acute combined systolic (congestive) 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 [place] [address] [address] Mar, [place] [address] [address] Feb, [place] [address] [address] Feb, Persistent atrial fibrillati on I48.1 and Reactive depression F32.9 [place] [address] [address] Feb, [place] [address] [address] Feb, [place] [address] [address] Jan, [place] [address] [address] Jan, Tear of medial meniscus of l eft knee, current, unspecified tear type, subsequent encounter S83.242D [place] [address] [id number] [address] [place] [address] Dec, [place] [address] [address] Dec, [facility] [address] [id number] [address] [place] [address] Dec, [facility] [address] [id number] [address] [place] [address] Nov, Shortness of breath R06.02 a nd Acute right-sided thoracic back pain M54.6 [facility] [address] [id number] [address] [place] [address] Nov, Incomplete tear of right rot ator cuff M75.111 and Tear of medial meniscus of left knee, current, unspecified tear type, subsequent encounter S83.242D [place] [address] [id number] [address] [place] [address] 14 Oct, 2016 Osteoarthritis of left knee, unspecified osteoarthritis type M17.12 [place] [address] [id number] [address] [place] [address] Sep, Pain in right shoulder M25.5 [address] [place] [address] [id number] [address] [place] [address] 17 Sep, 2016 Pain in right shoulder M25.5 11 and Poor vision H54.7 [place] [address] [id number] [address] [place] [address] 15 Sep, 2016 [place] [address] [id number] [address] [place] [address] Sep, Arthritis M19.90 and Poor vi javier H54.7 [facility] [address] [id number] [address] [place] [address] [id number] Aug, Dental caries K02.9 [facility] [address] [id number] [address] [place] [address] [id number] Jul, Dental examination Z01.20 [facility] [address] [id number] [address] [place] [address] Jul, [place] [address] [id number] [address] [place] [address] Jul, [facility] [address] [id number] [address] [place] [address] [id number] June, Dental examination Z01.20 [facility] [address] [id number] [address] [place] [address] [id number] June, Dental caries K02.9 [facility] [address] [id number] [address] [place] [address] [id number] May, Dental examination Z01.20 [facility] [address] [id number] [address] [place] [address] May, [facility] [address] [id number] [address] [place] [address] May, Bronchospasm J98.01 [facility] [address] [id number] [address] [place] [address] Apr, Bronchospasm J98.01 [facility] [address] [id number] [address] [place] [address] Apr, [facility] [address] [id number] [address] [place] [address] Apr, Acute non-recurrent maxillar y sinusitis J01.00 and Viral syndrome B34.9 [facility] [address] [id number] [address] [place] [address] Apr, [facility] [address] [id number] [address] [place] [address] Feb, Impingement syndrome of righ t shoulder M75.41 and Adhesive capsulitis of right shoulder M75.01 [facility] [address] [id number] [address] [place] [address] Dec, Impingement syndrome of righ t shoulder M75.41 and Adhesive capsulitis of right shoulder M75.01 [facility] [address] [id number] [address] [place] [address] Nov, [facility] [address] [id number] [address] [place] [address] 22 Oct, 2015 [facility] [address] [id number] [address] [place] [address] 22 Oct, 2015 Impingement syndrome of righ t shoulder M75.41 [facility] [address] [id number] [address] [place] [address] 13 Oct, 2015 [facility] [address] [id number] [address] [place] [address] Aug, Impingement syndrome of righ t shoulder M75.41 [facility] [address] [id number] [address] [place] [address] Aug, Oral candidiasis B37.0 [facility] [address] [id number] [address] [place] [address] Jul, Arthritis M19.90 [facility] [address] [id number] [address] [place] [address] Jul, [facility] [address] [id number] [address] [place] [address] June, Arthritis M19.90 and Mixed h yperlipidemia E78.2 [facility] [address] [id number] [address] [place] [address] Apr, Lumbar strain S39.012A [facility] [address] [id number] [place] [address] [id number] Jan, Encounter for dental examina tion Z01.20 and Dental caries K02.9 [facility] [address] [id number] [address] [place] [address] [id number] Jan, Encounter for dental examina tion Z01.20 and Dental examination Z01.20 [facility] [address] [id number] [address] [place] [address] [id number] June, Dental examination V72.2 [facility] [address] [id number] [address] [place] [address] [id number] June, Dental examination V72.2 [facility] [address] [id number] [address] [place] [address], [place] [address] 14 May, 2014 [facility] [address] [id number] [address] [place] [address], [place] [address] May, [facility] [address] [id number] [address] [place] [address], [place] [address] Oct, [facility] [address] [id number] [address] [place] [address], [place] [address] Oct, [facility] [address] [id number] [address] [place] [address], [place] [address] Oct, [facility] [address] [id number] [address] [place] [address], [place] [address] Oct, [facility] [address] [id number] [address] [place] [address], [place] [address] Sep, [facility] [address] [id number] [address] [place] [address], [place] [address] Sep, [facility] [address] [id number] [address] [place] [address], [place] [address] Aug, [facility] [address] [id number] [address] [place] [address], [place] [address] Aug, [facility] [address] [id number] [address] [place] [address], [place] [address] Aug, [facility] [address] [id number] [address] [place] [address], [place] [address] Aug, [facility] [address] [id number] [address] [place] [address], [place] [address] Aug, [facility] [address] [id number] [address] [place] [address], [place] [address] Aug, [facility] [address] [id number] [address] [place] [address], [place] [address] June, [facility] [address] [id number] [address] [place] [address], [place] [address] June, [facility] [address] [id number] [address] [place] [address], [place] [address] Jan, [facility] [address] [id number] [address] [place] [address], [place] [address] Jan, [facility] [address] [id number] [address] [place] [address], [place] [address] Oct, [facility] [address] [id number] [address] [place] [address], [place] [address] Oct, [facility] [address] [id number] [address] [place] [address], [place] [address] May, [facility] [address] [id number] [address] [place] [address], [place] [address] Mar, [facility] [address] [id number] [address] [place] [address], [place] [address] Nov, [facility] [address] [id number] [address] [place] [address], [place] [address] Oct, [facility] [address] [id number] [address] [place] [address], [place] [address] Aug, [facility] [address] [id number] [address] [place] [address], [place] [address] Aug, [facility] [address] [id number] [address] [place] [address], [place] [address] Aug, [facility] [address] [id number] [address] [place] [address], [place] [address] Aug, [facility] [address] [id number] [address] [place] [address], [place] [address] Aug, [facility] [address] [id number] [address] [place] [address], [place] [address] Aug, [facility] [address] [id number] [address] [place] [address], [place] [address] Jul, [facility] [address] [id number] [address] [place] [address] Jul, [facility] [address] [id number] [address] [place] [address] Jul, [facility] [address] [id number] [address] [place] [address] Jul, [facility] [address] [facility] [id number] [address] [place] [address] Jul, [facility] [address] [id number] [address] [place] [address] June, [facility] [address] [facility] [id number] [address] [place] [address] June, [facility] [address] [facility] [id number] [address] [place] [address] June, [facility] [address] [facility] [id number] [address] [place] [address] June, [facility] [address] [facility] [id number] [address] [place] [address] June, IMMUNIZATIONS No Known Immunizations SOCIAL HISTORY Never Assessed REASON FOR VISIT Referral PLAN OF CARE VITAL SIGNS MEDICATIONS Unknown [...]
--- OUTSIDE RECORDS SUMMARY | 2019-05-02 13:01 | XMS REPORT ---
Author Author Brigido ANDRADE Organization [facility] Address [address] [place] [address] Care Team Providers Care Professor Of Apologetics Name Role Phone CARROL ANDRADE Unavailable PROBLEMS Type Condition ICD9-CM Code VCM81-XZ Code Onset Dates Condition S tatus SNOMED Code Problem Arthritis M19.90 Active 4274896 Problem Incomplete tear of right rotator cuff M75.111 Active 2021940 Problem Poor vision H54.7 Active 71216702 3 Problem Obstructive sleep apnea (adult) (pediatric) 327.23 Active 36047265 Problem Mixed hyperlipidemia E78.2 Active 493678036 Problem Multinodular goiter E04.2 Active 164585223 Problem Thyroid nodule E04.1 Active 88604 5005 Problem Persistent atrial fibrillation I48.1 Active 914052773 Problem Reactive depression F32.9 Active 49709478 Problem Atrial fibrillation I48.91 Active 12469948 Problem 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 Active [id number] ALLERGIES No Information ENCOUNTERS Encounter Location Date Diagnosis [facility] [address] [id number] [address] [place] [address] June, Multinodular goiter E04.2 [facility] [address] [id number] [address] [place] [address] June, Thyroid nodule E04.1 [facility] [address] [facility] [id number] [address] [place] [address] May, [facility] [address] [id number] [address] [place] [address] May, Abnormal TSH R94.6 [facility] [address] [facility] [id number] [address] [place] [phone] May, Dental examination Z01.20 [place] [address] [address] Apr, Atrial fibrillation I48.91 [place] [address] [address] Apr, [place] [address] [address] Apr, Pain of left breast N64.4 an d Encounter for immunization Z23 [place] [address] [address] Mar, Abnormal TSH R94.6 and Acute combined systolic (congestive) 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 [place] [address] [address] Mar, [place] [address] [address] Feb, [place] [address] [address] Feb, Persistent atrial fibrillati on I48.1 and Reactive depression F32.9 [place] [address] [address] Feb, [place] [address] [address] Feb, [place] [address] [address] Jan, [place] [address] [address] Jan, Tear of medial meniscus of l eft knee, current, unspecified tear type, subsequent encounter S83.242D [place] [address] [place] [id number] [address] [place] [address] Dec, [place] [address] [address] Dec, [facility] [address] [id number] [address] [place] [address] Dec, [facility] [address] [id number] [address] [place] [address] Nov, Shortness of breath R06.02 a nd Acute right-sided thoracic back pain M54.6 [facility] [address] [id number] [address] [place] [address] Nov, Incomplete tear of right rot ator cuff M75.111 and Tear of medial meniscus of left knee, current, unspecified tear type, subsequent encounter S83.242D [place] [address] [id number] [address] [place] [address] 14 Oct, 2016 Osteoarthritis of left knee, unspecified osteoarthritis type M17.12 [place] [address] [id number] [address] [place] [address] Sep, Pain in right shoulder M25.5 [address] [place] [address] [id number] [address] [place] [phone] 17 Sep, 2016 Pain in right shoulder M25.5 11 and Poor vision H54.7 [place] [address] [id number] [address] [place] [address] 15 Sep, 2016 [place] [address] [id number] [address] [place] [address] Sep, Arthritis M19.90 and Poor vi javier H54.7 [facility] [address] [id number] [address] [place] [id number] Aug, Dental caries K02.9 [facility] [address] [id number] [address] [place] [address] [id number] Jul, Dental examination Z01.20 [facility] [address] [id number] [address] [place] [address] Jul, [place] [address] [id number] [address] [place] [address] Jul, [facility] [address] [id number] [address] [place] [address] [phone] June, Dental examination Z01.20 [facility] [address] [id number] [address] [place] [address] [id number] June, Dental caries K02.9 [facility] [address] [id number] [address] [place] [address] [id number] May, Dental examination Z01.20 [facility] [address] [id number] [address] [place] [address] May, [facility] [address] [id number] [address] [place] [address] May, Bronchospasm J98.01 [facility] [address] [id number] [address] [place] [address] Apr, Bronchospasm J98.01 [facility] [address] [id number] [address] [place] [address] Apr, [facility] [address] [id number] [address] [place] [address] Apr, Acute non-recurrent maxillar y sinusitis J01.00 and Viral syndrome B34.9 [facility] [address] [id number] [address] [place] [address] Apr, [facility] [address] [id number] [address] [place] [address] Feb, Impingement syndrome of righ t shoulder M75.41 and Adhesive capsulitis of right shoulder M75.01 [facility] [address] [id number] [address] [place] [address] Dec, Impingement syndrome of righ t shoulder M75.41 and Adhesive capsulitis of right shoulder M75.01 [facility] [address] [id number] [address] [place] [address] Nov, [facility] [address] [id number] [address] [place] [id number] 22 Oct, 2015 [facility] [address] [id number] [address] [place] [phone] 22 Oct, 2015 Impingement syndrome of righ t shoulder M75.41 [facility] [address] [id number] [address] [place] [phone] 13 Oct, 2015 [facility] [address] [id number] [address] [place] [address] Aug, Impingement syndrome of righ t shoulder M75.41 [facility] [address] [id number] [address] [place] [phone] Aug, Oral candidiasis B37.0 [facility] [address] [id number] [address] [place] [address] Jul, Arthritis M19.90 [facility] [address] [id number] [address] [place] [address] Jul, [facility] [address] [id number] [address] [place] [address] June, Arthritis M19.90 and Mixed h yperlipidemia E78.2 [facility] [address] [id number] [address] [place] [address] Apr, Lumbar strain S39.012A [facility] [address] [id number] [place] [address] [id number] Jan, Encounter for dental examina tion Z01.20 and Dental caries K02.9 [facility] [address] [id number] [address] [place] [address] [id number] Jan, Encounter for dental examina tion Z01.20 and Dental examination Z01.20 [facility] [address] [id number] [address] [place] [address] [id number] June, Dental examination V72.2 [facility] [address] [id number] [address] [place] [address] [id number] June, Dental examination V72.2 [facility] [address] [id number] [address] [place] [address], [place] [address] 14 May, 2014 [facility] [address] [id number] [address] [place] [address], [place] [address] May, [facility] [address] [id number] [address] [place] [address], [place] [address] Oct, [facility] [address] [id number] [address] [place] [address], [place] [address] Oct, [facility] [address] [id number] [address] [place] [address], [place] [address] Oct, [facility] [address] [id number] [address] [place] [address], [place] [address] Oct, [facility] [address] [id number] [address] [place] [address], [place] [address] Sep, [facility] [address] [id number] [address] [place] [address], [place] [address] Sep, [facility] [address] [id number] [address] [place] [address], [place] [address] Aug, [facility] [address] [id number] [address] [place] [address], [place] [address] Aug, [facility] [address] [id number] [address] [place] [address], [place] [address] Aug, [facility] [address] [id number] [address] [place] [address], [place] [address] Aug, [facility] [address] [id number] [address] [place] [address], [place] [address] Aug, [facility] [address] [id number] [address] [place] [address], [place] [address] Aug, [facility] [address] [id number] [address] [place] [address], [place] [address] June, [facility] [address] [id number] [address] [place] [address], [place] [address] June, [facility] [address] [id number] [address] [place] [address], [place] [address] Jan, [facility] [address] [id number] [address] [place] [address], [place] [address] Jan, [facility] [address] [id number] [address] [place] [address], [place] [address] Oct, [facility] [address] [id number] [address] [place] [address], [place] [address] Oct, [facility] [address] [id number] [address] [place] [address], [place] [address] May, [facility] [address] [id number] [address] [place] [address], [place] [address] Mar, [facility] [address] [id number] [address] [place] [address], [place] [address] Nov, [facility] [address] [id number] [address] [place] [address], [place] [address] Oct, [facility] [address] [id number] [address] [place] [address], [place] [address] Aug, [facility] [address] [id number] [address] [place] [address], [place] [address] Aug, [facility] [address] [id number] [address] [place] [address], [place] [address] Aug, [facility] [address] [id number] [address] [place] [address], [place] [address] Aug, [facility] [address] [id number] [address] [place] [address], [place] [address] Aug, [facility] [address] [id number] [address] [place] [address], [place] [address] Aug, [facility] [address] [id number] [address] [place] [address], [place] [address] Jul, [facility] [address] [id number] [address] [place] [address] Jul, [facility] [address] [id number] [address] [place] [address] Jul, [facility] [address] [id number] [address] [place] [address] Jul, [facility] [address] [facility] [id number] [address] [place] [address] Jul, [facility] [address] [id number] [address] [place] [address] June, [facility] [address] [facility] [id number] [address] [place] [address] June, [facility] [address] [facility] [id number] [address] [place] [id number] June, [facility] [address] [facility] [id number] [address] [place] [address] June, [facility] [address] [facility] [id number] [address] [place] [address] June, IMMUNIZATIONS No Known Immunizations SOCIAL HISTORY [...]
--- OUTSIDE RECORDS SUMMARY | 2019-05-02 13:02 | XMS REPORT ---
Author Author Brigido FRANK Organization [facility] Address [address] [place] [address] Care Team Providers Care Player Piano Technician Name Role Phone VICK FRANK Unavailable PROBLEMS Type Condition ICD9-CM Code TBT07-FG Code Onset Dates Condition S tatus SNOMED Code Problem Mixed hyperlipidemia E78.2 Active 851892111 Problem Poor vision H54.7 Active 39320872 3 Problem Arthritis M19.90 Active 1382144 Problem Obstructive sleep apnea (adult) (pediatric) 327.23 Active 19265420 Problem Thyroid nodule E04.1 Active 61974 5005 Problem Atrial fibrillation I48.91 Active 89753062 Problem Reactive depression F32.9 Active 41796607 Problem Incomplete tear of right rotator cuff M75.111 Active 5079945 Problem 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 Active 271396925532482 Problem Persistent atrial fibrillation I48.1 Active 002793261 ALLERGIES No Information ENCOUNTERS Encounter Location Date Diagnosis [place] [id number] [place] [id number] [address] [place] [phone] June, Thyroid nodule E04.1 [facility] [address] [place] [id number] [place] [address] May, [facility] [address] [place] [id number] [address] [place] [address] May, Abnormal TSH R94.6 [facility] [address] [place] [id number] [address] [place] [address] [phone] May, Dental examination Z01.20 [facility] [address] [place] [id number] [address] [place] [address] Apr, Atrial fibrillation I48.91 [facility] [address] [place] [id number] [address] [place] [phone] Apr, [facility] [address] [facility] [id number] [address] [place] [phone] Apr, Pain of left breast N64.4 an d Encounter for immunization Z23 [facility] [address] [facility] [id number] [address] [place] [phone] Mar, Abnormal TSH R94.6 and Acute combined systolic (congestive) 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 [facility] [address] [facility] [id number] [address] [place] [address] Mar, [facility] [address] [facility] [id number] [address] [place] [phone] Feb, [facility] [address] [facility] [id number] [address] [place] [address] Feb, Persistent atrial fibrillati on I48.1 and Reactive depression F32.9 [facility] [address] [facility] [id number] [address] [place] [phone] Feb, [facility] [address] [facility] [id number] [address] [place] [phone] Feb, [facility] [address] [facility] [id number] [address] [place] [phone] Jan, [facility] [address] [facility] [id number] [address] [place] [phone] Jan, Tear of medial meniscus of l eft knee, current, unspecified tear type, subsequent encounter S83.242D [facility] [address] [facility] [id number] [address] [place] [phone] Dec, [facility] [address] [facility] [id number] [address] [place] [phone] Dec, [facility] [address] [facility] [id number] [address] [place] [address] Dec, [facility] [address] [facility] [id number] [address] [place] [address] Nov, Shortness of breath R06.02 a nd Acute right-sided thoracic back pain M54.6 [facility] [address] [id number] [address] [place] [phone] Nov, Incomplete tear of right rot ator cuff M75.111 and Tear of medial meniscus of left knee, current, unspecified tear type, subsequent encounter S83.242D [facility] [address] [id number] [address] [place] [phone] 14 Oct, 2016 Osteoarthritis of left knee, unspecified osteoarthritis type M17.12 [facility] [address] [id number] [address] [place] [phone] 17 Sep, 2016 Pain in right shoulder M25.5 11 [facility] [address] [id number] [address] [place] [phone] 17 Sep, 2016 Pain in right shoulder M25.5 11 and Poor vision H54.7 [facility] [address] [id number] [address] [place] [phone] 15 Sep, 2016 [facility] [address] [id number] [address] [place] [phone] 10 Sep, 2016 Arthritis M19.90 and Poor vi javier H54.7 [facility] [address] [id number] [address] [place] [address] [id number] Aug, Dental caries K02.9 [facility] [address] [id number] [address] [place] [address] [id number] Jul, Dental examination Z01.20 [facility] [address] [id number] [address] [place] [address] Jul, [facility] [address] [id number] [address] [place] [phone] Jul, [facility] [address] [id number] [address] [place] [address] [id number] June, Dental examination Z01.20 [facility] [address] [id number] [address] [place] [address] [id number] June, Dental caries K02.9 [facility] [address] [id number] [address] [place] [address] [id number] May, Dental examination Z01.20 [facility] [address] [id number] [address] [place] [phone] May, [facility] [address] [id number] [address] [place] [address] May, Bronchospasm J98.01 [facility] [address] [id number] [address] [place] [phone] Apr, Bronchospasm J98.01 [facility] [address] [id number] [address] [place] [address] Apr, [facility] [address] [id number] [address] [place] [phone] Apr, Acute non-recurrent maxillar y sinusitis J01.00 and Viral syndrome B34.9 [facility] [address] [id number] [address] [place] [phone] Apr, [facility] [address] [id number] [address] [place] [phone] Feb, Impingement syndrome of righ t shoulder M75.41 and Adhesive capsulitis of right shoulder M75.01 [facility] [address] [id number] [address] [place] [phone] Dec, Impingement syndrome of righ t shoulder M75.41 and Adhesive capsulitis of right shoulder M75.01 [facility] [address] [id number] [address] [place] [phone] Nov, [facility] [address] [id number] [address] [place] [phone] Oct, [facility] [address] [id number] [address] [place] [phone] Oct, Impingement syndrome of righ t shoulder M75.41 [facility] [address] [id number] [address] [place] [phone] Oct, [facility] [address] [id number] [address] [place] [address] Aug, Impingement syndrome of righ t shoulder M75.41 [facility] [address] [id number] [address] [place] [phone] Aug, Oral candidiasis B37.0 [facility] [address] [id number] [address] [place] [phone] Jul, Arthritis M19.90 [facility] [address] [id number] [address] [place] [address] Jul, [facility] [address] [id number] [address] [place] [address] June, Arthritis M19.90 and Mixed h yperlipidemia E78.2 [facility] [address] [id number] [address] [place] [address] Apr, Lumbar strain S39.012A [facility] [address] [id number] [id number] Jan, Encounter for dental examina tion Z01.20 and Dental caries K02.9 [facility] [address] [facility] [id number] [place] [address] [id number] Jan, Encounter for dental examina tion Z01.20 and Dental examination Z01.20 [facility] [address] [id number] [address] [place] [address] [id number] June, Dental examination V72.2 [facility] [address] [id number] [place] [address] [id number] June, Dental examination V72.2 [facility] [address] [id number] [address] [place] [phone] May, [facility] [address] [facility] [id number] [address] [place] [phone] May, [facility] [address] [id number] [address] [place] [address], [place] [address] Oct, [facility] [address] [id number] [address] [place] [address], [place] [address] Oct, [facility] [address] [id number] [address] [place] [address], [place] [address] Oct, [facility] [address] [id number] [address] [place] [address], [place] [address] Oct, [facility] [address] [id number] [address] [place] [address], [place] [address] Sep, [facility] [address] [id number] [address] [place] [address], [place] [address] Sep, [facility] [address] [id number] [address] [place] [address], [place] [address] Aug, [facility] [address] [id number] [address] [place] [address], [place] [address] Aug, [facility] [address] [id number] [address] [place] [address], [place] [address] Aug, [facility] [address] [id number] [address] [place] [address], [place] [address] Aug, [facility] [address] [id number] [address] [place] [address], [place] [address] Aug, [facility] [address] [id number] [address] [place] [address], [place] [address] Aug, [facility] [address] [id number] [address] [place] [address], [place] [address] June, [facility] [address] [id number] [address] [place] [address], [place] [address] June, [facility] [address] [id number] [address] [place] [address], [place] [address] Jan, [facility] [address] [id number] [address] [place] [address], [place] [address] Jan, [facility] [address] [id number] [address] [place] [address], [place] [address] 10 Oct, 2012 [facility] [address] [id number] [address] [place] [address], [place] [address] 06 Oct, 2012 [facility] [address] [id number] [address] [place] [address], [place] [address] May, [facility] [address] [id number] [address] [place] [address], [place] [address] Mar, [facility] [address] [id number] [address] [place] [address], [place] [address] Nov, [facility] [address] [id number] [address] [place] [address], [place] [address] Oct, [facility] [address] [id number] [address] [place] [address], [place] [address] Aug, [facility] [address] [id number] [address] [place] [address], [place] [address] Aug, [facility] [address] [id number] [address] [place] [address], [place] [address] Aug, [facility] [address] [id number] [address] [place] [address], [place] [address] Aug, [facility] [address] [id number] [address] [place] [address], [place] [address] 17 Aug, 2011 [facility] [address] [id number] [address] [place] [address], [place] [address] Aug, [facility] [address] [id number] [address] [place] [address], [place] [address] Jul, [facility] [address] [id number] [address] [place] [address], [place] [address] Jul, [facility] [address] [id number] [address] [place] [address], [place] [address] Jul, [facility] [address] [id number] [address] [place] [id number] Jul, [facility] [address] [id number] [address] [place] [address] Jul, [facility] [address] [id number] [address] [place] [address] June, [facility] [address] [id number] [address] [place] [address] June, [facility] [address] [id number] [address] [place] [address] June, [facility] [address] [id number] [address] [place] [id number] June, [facility] [address] [facility] [id number] [address] [place] [address] June, IMMUNIZATIONS No Known Immunizations SOCIAL HISTORY Never Assessed REASON FOR VISIT MRI results PLAN OF CARE VITAL SIGNS MEDICATIONS No Known Medications RESULTS No Results PROCEDURES No Known procedures INSTRUCTIONS MEDICATIONS ADMINISTERED No Known Medications MEDICAL (GENERAL) HISTORY Type Description Date Medical History heart murmur Medical History cancer-bladder Medical History asthma Medical History bronchitis Surgical History Cancer was removed from bladder 2009 Hospitalization History Pneumonia 1961 Hospitalization History Heart Attack 2017
--- OUTSIDE RECORDS SUMMARY | 2019-05-02 13:02 | XMS REPORT ---
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 Name Role Phone VAZQUEZ ANDRADE Unavailable PROBLEMS Type Condition ICD9-CM Code VPH12-JK Code Onset Dates Condition S tatus SNOMED Code Problem Obstructive sleep apnea (adult) (pediatric) 327.23 Active 23187376 Problem Arthritis M19.90 Active 6606402 Problem Mixed hyperlipidemia E78.2 Active 619522756 Problem Atrial fibrillation I48.91 Active 91502873 Problem 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 Active 968543842236327 Problem Incomplete tear of right rotator cuff M75.111 Active 2065617 Problem Poor vision H54.7 Active 33314490 3 Problem Reactive depression F32.9 Active 14267525 Problem Persistent atrial fibrillation I48.1 Active [id number] ALLERGIES No Information ENCOUNTERS Encounter Location Date Diagnosis [facility] [id number] [place] [id number] May, Abnormal TSH R94.6 [facility] [address] [facility] [id number] [address] [place] [address] [id number] 13 May, 2017 Dental examination Z01.20 [facility] [address] [facility] [id number] [address] [place] [id number] 20 Apr, 2017 Atrial fibrillation I48.91 [facility] [address] [facility] [id number] [address] [place] [id number] 15 Apr, 2017 [facility] [address] [id number] 12 Apr, 2017 Pain of left breast N64.4 an d Encounter for immunization Z23 [facility] [id number] [place] [id number] Mar, Abnormal TSH R94.6 and Acute combined systolic (congestive) 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 [facility] [address] [id number] [address] [place] [id number] Mar, [facility] [address] [facility] [id number] [address] [place] [id number] Feb, [facility] [address] [id number] [address] [place] [phone] Feb, Persistent atrial fibrillati on I48.1 and Reactive depression F32.9 [place] [address] [id number] [address] [place] [phone] Feb, [facility] [address] [id number] [address] [place] [id number] Feb, [place] [address] [facility] [id number] [address] [place] [phone] Jan, [facility] [address] [id number] [address] [place] [id number] Jan, Tear of medial meniscus of l eft knee, current, unspecified tear type, subsequent encounter S83.242D [facility] [address] [facility] [id number] [address] [place] [phone] Dec, [place] [address] [id number] [address] [place] [phone] Dec, [facility] [address] [facility] [id number] [address] [place] [id number] Dec, [facility] [address] [id number] [address] [place] [id number] Nov, Shortness of breath R06.02 a nd Acute right-sided thoracic back pain M54.6 [facility] [address] [id number] [address] [place] [id number] Nov, Incomplete tear of right rot ator cuff M75.111 and Tear of medial meniscus of left knee, current, unspecified tear type, subsequent encounter S83.242D [facility] [address] [id number] [address] [place] [id number] 14 Oct, 2016 Osteoarthritis of left knee, unspecified osteoarthritis type M17.12 [facility] [address] [id number] [address] [place] [id number] 17 Sep, 2016 Pain in right shoulder M25.5 11 [facility] [address] [id number] [address] [place] [id number] 17 Sep, 2016 Pain in right shoulder M25.5 11 and Poor vision H54.7 [facility] [address] [id number] [address] [place] [id number] Sep, [facility] [address] [id number] [address] [place] [id number] 10 Sep, 2016 Arthritis M19.90 and Poor vi javier H54.7 [facility] [address] [id number] [address] [place] [id number] Aug, Dental caries K02.9 [facility] [address] [id number] [address] [place] [address] [id number] Jul, Dental examination Z01.20 [facility] [address] [id number] [address] [place] [phone] Jul, [facility] [address] [id number] [address] [place] [id number] Jul, [facility] [address] [id number] [address] [place] [address] [id number] June, Dental examination Z01.20 [facility] [address] [id number] [address] [place] [address] [id number] June, Dental caries K02.9 [facility] [address] [id number] [address] [place] [address] [id number] May, Dental examination Z01.20 [facility] [address] [id number] [address] [place] [phone] May, [facility] [address] [id number] [address] [place] [id number] May, Bronchospasm J98.01 [facility] [address] [id number] [address] [place] [phone] Apr, Bronchospasm J98.01 [facility] [address] [id number] [address] [place] [phone] Apr, [facility] [address] [id number] [address] [place] [phone] Apr, Acute non-recurrent maxillar y sinusitis J01.00 and Viral syndrome B34.9 [facility] [address] [id number] [address] [place] [phone] Apr, [facility] [address] [id number] [address] [place] [phone] Feb, Impingement syndrome of righ t shoulder M75.41 and Adhesive capsulitis of right shoulder M75.01 [facility] [address] [id number] [address] [place] [id number] Dec, Impingement syndrome of righ t shoulder M75.41 and Adhesive capsulitis of right shoulder M75.01 [facility] [address] [id number] [address] [place] [phone] Nov, [facility] [address] [id number] [address] [place] [id number] Oct, [facility] [address] [id number] [address] [place] [id number] 22 Oct, 2015 Impingement syndrome of righ t shoulder M75.41 [facility] [address] [id number] [address] [place] [id number] 13 Oct, 2015 [facility] [address] [id number] [address] [place] [id number] Aug, Impingement syndrome of righ t shoulder M75.41 [facility] [address] [id number] [address] [place] [phone] Aug, Oral candidiasis B37.0 [facility] [address] [id number] [address] [place] [id number] Jul, Arthritis M19.90 [facility] [address] [id number] [address] [place] [phone] Jul, [facility] [address] [id number] [address] [place] [id number] June, Arthritis M19.90 and Mixed h yperlipidemia E78.2 [facility] [address] [id number] [address] [place] [id number] Apr, Lumbar strain S39.012A [facility] [address] [id number] [address] [place] [address] [id number] Jan, Encounter for dental examina tion Z01.20 and Dental caries K02.9 [facility] [address] [id number] [place] [address] [id number] Jan, Dental examination Z01.20 an d Encounter for dental examination Z01.20 [facility] [address] [id number] [place] [address] [id number] June, Dental examination V72.2 [facility] [address] [id number] [address] [place] [address] [id number] June, Dental examination V72.2 [facility] [address] [id number] [address] [place] [phone] May, [facility] [address] [id number] [address] [place] [phone] May, [facility] [address] [id number] [address] [place] [id number] Oct, [facility] [address] [id number] [address] [place] [phone] Oct, [facility] [address] [id number] [address] [place] [address], [place] [id number] 05 Oct, 2013 [facility] [address] [id number] [address] [place] [address], [place] [id number] Oct, [facility] [address] [id number] [address] [place] [address], [place] [id number] Sep, [facility] [address] [id number] [address] [place] [address], [place] [id number] Sep, [facility] [address] [id number] [address] [place] [address], [place] [id number] Aug, [facility] [address] [id number] [address] [place] [address], [place] [id number] Aug, [facility] [address] [id number] [address] [place] [address], [place] [id number] Aug, [facility] [address] [id number] [address] [place] [address], [place] [id number] Aug, [facility] [address] [id number] [address] [place] [address], [place] [id number] Aug, [facility] [address] [id number] [address] [place] [address], [place] [id number] Aug, [facility] [address] [id number] [address] [place] [address], [place] [id number] June, [facility] [address] [id number] [address] [place] [address], [place] [id number] June, [facility] [address] [id number] [address] [place] [address], [place] [id number] Jan, [facility] [address] [id number] [address] [place] [address], [place] [id number] Jan, [facility] [address] [id number] [address] [place] [address], [place] [id number] Oct, [facility] [address] [id number] [address] [place] [address], [place] [id number] Oct, [facility] [address] [id number] [address] [place] [address], [place] [id number] May, [facility] [address] [id number] [address] [place] [address], [place] [id number] Mar, [facility] [address] [id number] [address] [place] [address], [place] [id number] Nov, [facility] [address] [id number] [address] [place] [address], [place] [id number] Oct, [facility] [address] [id number] [address] [place] [address], [place] [id number] Aug, [facility] [address] [id number] [address] [place] [address], [place] [id number] Aug, [facility] [address] [id number] [address] [place] [address], [place] [id number] Aug, [facility] [address] [id number] [address] [place] [address], [place] [id number] Aug, [facility] [address] [id number] [address] [place] [address], [place] [id number] Aug, [facility] [address] [id number] [address] [place] [address], [place] [phone] Aug, [facility] [address] [id number] [address] [place] [address], [place] [id number] Jul, [facility] [address] [id number] [address] [place] [address], [place] [id number] Jul, [facility] [address] [id number] [address] [place] [address], [place] [id number] Jul, [facility] [address] [id number] [address] [place] [address], [place] [id number] Jul, [facility] [address] [id number] [address] [place] [address], [place] [id number] 05 Jul, 2011 [facility] [address] [id number] [address] [address] June, [facility] [address] [facility] [id number] [address] [place] [phone] June, [facility] [address] [facility] [id number] [address] [place] [phone] June, [facility] [address] [facility] [id number] [address] [place] [id number] June, [facility] [address] [facility] [id number] [address] [place] [phone] June, IMMUNIZATIONS No Known Immunizations SOCIAL HISTORY Never Assessed REASON FOR VISIT right shoulder pain (last seen ) Consult Vazquez Andrade;Omayra RT(R) PLAN OF CARE Activity Details Follow Up 4 Weeks Reason: VITAL SIGNS MEDICATIONS No Known Medications RESULTS Name Result Date Reference Range Xray : Knee, Left 1-2 views (IN HOUSE) 2016-10-21 4 PROCEDURES Procedure Date Ordered Result Body Site DRAIN/INJECT, JOINT/BURSA Nov 03, 2016 X-RAY EXAM OF KNEE, 1 OR 2 Nov 03, 2016 DEPO MEDROL 80 MG/ML Nov 03, 2016 INSTRUCTIONS MEDICATIONS ADMINISTERED No Known Medications MEDICAL (GENERAL) HISTORY Type Description Date Medical History heart murmur Medical History cancer-bladder Medical History asthma Medical History bronchitis Surgical History Cancer was removed from bladder 2009 Hospitalization History Pneumonia 1961 Hospitalization History Heart Attack 2017
--- OUTSIDE RECORDS SUMMARY | 2019-05-02 13:02 | XMS REPORT ---
Author Author Brigido ANDRADE Organization [facility] Address [address] [place] [address] Care Team Providers Care Signal Inspector Name Role Phone CARROL ANDRADE Unavailable PROBLEMS Type Condition ICD9-CM Code HCC16-QF Code Onset Dates Condition S tatus SNOMED Code Problem Mixed hyperlipidemia E78.2 Active 839961474 Problem Poor vision H54.7 Active 95105671 3 Problem Arthritis M19.90 Active 3395807 Problem Obstructive sleep apnea (adult) (pediatric) 327.23 Active 01956853 Problem Thyroid nodule E04.1 Active 30384 5005 Problem Atrial fibrillation I48.91 Active 66096949 Problem Reactive depression F32.9 Active 80073094 Problem Incomplete tear of right rotator cuff M75.111 Active 2785121 Problem 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 Active 235401206030408 Problem Persistent atrial fibrillation I48.1 Active [id number] ALLERGIES No Information ENCOUNTERS Encounter Location Date Diagnosis [facility] [address] [id number] [address] [place] [phone] June, Thyroid nodule E04.1 [facility] [address] [id number] [address] [place] [phone] May, [facility] [address] [id number] [address] [place] [phone] May, Abnormal TSH R94.6 [facility] [address] [id number] [address] [place] [address] [id number] May, Dental examination Z01.20 [facility] [address] [id number] [address] [place] [phone] Apr, Atrial fibrillation I48.91 [facility] [address] [id number] [address] [place] [phone] Apr, [facility] [address] [facility] [id number] [address] [place] [phone] Apr, Pain of left breast N64.4 an d Encounter for immunization Z23 [facility] [address] [facility] [id number] [address] [place] [phone] Mar, Abnormal TSH R94.6 and Acute combined systolic (congestive) 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 [facility] [address] [facility] [id number] [address] [place] [phone] Mar, [facility] [address] [facility] [id number] [address] [place] [phone] Feb, [facility] [address] [facility] [id number] [address] [place] [phone] Feb, Persistent atrial fibrillati on I48.1 and Reactive depression F32.9 [facility] [address] [facility] [id number] [address] [place] [phone] Feb, [facility] [address] [facility] [id number] [address] [place] [phone] Feb, [facility] [address] [facility] [id number] [address] [place] [phone] Jan, [facility] [address] [facility] [id number] [address] [place] [phone] Jan, Tear of medial meniscus of l eft knee, current, unspecified tear type, subsequent encounter S83.242D [facility] [address] [facility] [id number] [address] [place] [phone] Dec, [facility] [address] [facility] [id number] [address] [place] [phone] Dec, [facility] [address] [facility] [id number] [address] [place] [phone] Dec, [facility] [address] [facility] [id number] [address] [place] [phone] Nov, Shortness of breath R06.02 a nd Acute right-sided thoracic back pain M54.6 [facility] [address] [id number] [address] [place] [phone] Nov, Incomplete tear of right rot ator cuff M75.111 and Tear of medial meniscus of left knee, current, unspecified tear type, subsequent encounter S83.242D [facility] [address] [id number] [address] [place] [id number] 14 Oct, 2016 Osteoarthritis of left knee, unspecified osteoarthritis type M17.12 [facility] [address] [id number] [address] [place] [id number] 17 Sep, 2016 Pain in right shoulder M25.5 11 [facility] [address] [id number] [address] [place] [id number] 17 Sep, 2016 Pain in right shoulder M25.5 11 and Poor vision H54.7 [facility] [address] [id number] [address] [place] [phone] 15 Sep, 2016 [facility] [address] [id number] [address] [place] [phone] 10 Sep, 2016 Arthritis M19.90 and Poor vi javier H54.7 [facility] [address] [id number] [address] [place] [id number] Aug, Dental caries K02.9 [facility] [address] [id number] [address] [place] [address] [id number] Jul, Dental examination Z01.20 [facility] [address] [id number] [address] [place] [id number] Jul, [facility] [address] [id number] [address] [place] [phone] Jul, [facility] [address] [id number] [address] [place] [address] [id number] June, Dental examination Z01.20 [facility] [address] [id number] [address] [place] [address] [id number] June, Dental caries K02.9 [facility] [address] [id number] [address] [place] [address] [id number] May, Dental examination Z01.20 [facility] [address] [id number] [address] [place] [phone] May, [facility] [address] [id number] [address] [place] [phone] May, Bronchospasm J98.01 [facility] [address] [id number] [address] [place] [phone] Apr, Bronchospasm J98.01 [facility] [address] [id number] [address] [place] [id number] Apr, [facility] [address] [id number] [address] [place] [phone] Apr, Acute non-recurrent maxillar y sinusitis J01.00 and Viral syndrome B34.9 [facility] [address] [id number] [address] [place] [phone] Apr, [facility] [address] [id number] [address] [place] [phone] Feb, Impingement syndrome of righ t shoulder M75.41 and Adhesive capsulitis of right shoulder M75.01 [facility] [address] [id number] [address] [place] [id number] Dec, Impingement syndrome of righ t shoulder M75.41 and Adhesive capsulitis of right shoulder M75.01 [facility] [address] [id number] [address] [place] [phone] Nov, [facility] [address] [id number] [address] [place] [phone] Oct, [facility] [address] [id number] [address] [place] [phone] Oct, Impingement syndrome of righ t shoulder M75.41 [facility] [address] [id number] [address] [place] [phone] Oct, [facility] [address] [id number] [address] [place] [phone] Aug, Impingement syndrome of righ t shoulder M75.41 [facility] [address] [id number] [address] [place] [phone] Aug, Oral candidiasis B37.0 [facility] [address] [id number] [address] [place] [phone] Jul, Arthritis M19.90 [facility] [address] [id number] [address] [place] [phone] Jul, [facility] [address] [id number] [address] [place] [phone] June, Arthritis M19.90 and Mixed h yperlipidemia E78.2 [facility] [address] [id number] [address] [place] [phone] Apr, Lumbar strain S39.012A [facility] [address] [id number] [id number] Jan, Encounter for dental examina tion Z01.20 and Dental caries K02.9 [facility] [address] [facility] [id number] [place] [address] [id number] Jan, Encounter for dental examina tion Z01.20 and Dental examination Z01.20 [facility] [address] [id number] [address] [place] [address] [id number] June, Dental examination V72.2 [facility] [address] [id number] [place] [address] [id number] June, Dental examination V72.2 [facility] [address] [id number] [address] [place] [phone] May, [facility] [address] [facility] [id number] [address] [place] [phone] May, [facility] [address] [id number] [address] [place] [address], [place] [id number] Oct, [facility] [address] [id number] [address] [place] [address], [place] [id number] Oct, [facility] [address] [id number] [address] [place] [address], [place] [id number] Oct, [facility] [address] [id number] [address] [place] [address], [place] [id number] Oct, [facility] [address] [id number] [address] [place] [address], [place] [id number] Sep, [facility] [address] [id number] [address] [place] [address], [place] [id number] Sep, [facility] [address] [id number] [address] [place] [address], [place] [id number] Aug, [facility] [address] [id number] [address] [place] [address], [place] [id number] Aug, [facility] [address] [id number] [address] [place] [address], [place] [id number] Aug, [facility] [address] [id number] [address] [place] [address], [place] [id number] Aug, [facility] [address] [id number] [address] [place] [address], [place] [id number] Aug, [facility] [address] [id number] [address] [place] [address], [place] [id number] Aug, [facility] [address] [id number] [address] [place] [address], [place] [id number] June, [facility] [address] [id number] [address] [place] [address], [place] [id number] June, [facility] [address] [id number] [address] [place] [address], [place] [id number] Jan, [facility] [address] [id number] [address] [place] [address], [place] [id number] Jan, [facility] [address] [id number] [address] [place] [address], [place] [id number] 10 Oct, 2012 [facility] [address] [id number] [address] [place] [address], [place] [id number] 06 Oct, 2012 [facility] [address] [id number] [address] [place] [address], [place] [id number] May, [facility] [address] [id number] [address] [place] [address], [place] [id number] Mar, [facility] [address] [id number] [address] [place] [address], [place] [id number] Nov, [facility] [address] [id number] [address] [place] [address], [place] [id number] Oct, [facility] [address] [id number] [address] [place] [address], [place] [id number] Aug, [facility] [address] [id number] [address] [place] [address], [place] [id number] Aug, [facility] [address] [id number] [address] [place] [address], [place] [id number] Aug, [facility] [address] [id number] [address] [place] [address], [place] [id number] Aug, [facility] [address] [id number] [address] [place] [address], [place] [id number] 17 Aug, 2011 [facility] [address] [id number] [address] [place] [address], [place] [id number] Aug, [facility] [address] [id number] [address] [place] [address], [place] [id number] Jul, [facility] [address] [id number] [address] [place] [address], [place] [id number] Jul, [facility] [address] [id number] [address] [place] [address], [place] [id number] Jul, [facility] [address] [id number] [address] [place] [phone] Jul, [facility] [address] [id number] [address] [place] [phone] Jul, [facility] [address] [id number] [address] [place] [phone] June, [facility] [address] [id number] [address] [place] [phone] June, [facility] [address] [id number] [address] [place] [phone] June, [facility] [address] [id number] [address] [place] [phone] June, [facility] [address] [id number] [address] [place] [phone] June, IMMUNIZATIONS No Known Immunizations SOCIAL HISTORY Never Assessed REASON FOR VISIT 4 wk f/u (knee) MHill RT(R) PLAN OF CARE Activity Details Follow Up prn Reason: VITAL SIGNS Height 74 in 2016-12-08 Blood pressure systolic 126 mmHg 2016-12-08 Blood pressure diastolic 82 mmHg 2016-12-08 MEDICATIONS No Known Medications RESULTS Name Result Date Reference Range MRI : Shoulder, Right 2016-12-13 MRI : Knee, Left w/o contrast 2016-12-13 PROCEDURES Procedure Date Ordered Result Body Site DRAIN/INJECT, JOINT/BURSA Dec 08, 2016 DEPO MEDROL 80 MG/ML Dec 08, 2016 INSTRUCTIONS MEDICATIONS ADMINISTERED No Known Medications MEDICAL (GENERAL) HISTORY Type Description Date Medical History heart murmur Medical History cancer-bladder Medical History asthma Medical History bronchitis Surgical History Cancer was removed from bladder 2009 Hospitalization History Pneumonia 1961 Hospitalization History Heart Attack 2017
--- OUTSIDE RECORDS SUMMARY | 2019-05-02 13:02 | XMS REPORT ---
Author Author Brigido FRANK Organization [facility] Address [address] [place] [address] Care Team Providers Care Log Grader Name Role Phone VICK FRANK Unavailable PROBLEMS Type Condition ICD9-CM Code PFA86-UP Code Onset Dates Condition S tatus SNOMED Code Problem Arthritis M19.90 Active 4763151 Problem Incomplete tear of right rotator cuff M75.111 Active 7282332 Problem Poor vision H54.7 Active 44478491 3 Problem Obstructive sleep apnea (adult) (pediatric) 327.23 Active 48071526 Problem Mixed hyperlipidemia E78.2 Active 818228448 Problem Multinodular goiter E04.2 Active 228604985 Problem Thyroid nodule E04.1 Active 35106 5005 Problem Persistent atrial fibrillation I48.1 Active 251754148 Problem Reactive depression F32.9 Active 29668041 Problem Atrial fibrillation I48.91 Active 25408182 Problem 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 Active [id number] ALLERGIES Substance Reaction Event Type Date Status Indomethacin Unknown Drug Allergy Feb, Active Clindamycin HCl Unknown Drug Allergy Feb, Active Cayenne Pepper Tongue Swelling Drug Allergy Feb, Active ENCOUNTERS Encounter Location Date Diagnosis [facility] [address] [facility] [id number] [address] [place] [address] June, Multinodular goiter E04.2 [facility] [address] [facility] [id number] [address] [place] [address] June, Thyroid nodule E04.1 [facility] [address] [facility] [id number] [address] [place] [address] May, [facility] [address] [facility] [id number] [address] [place] [address] May, Abnormal TSH R94.6 [place] [address] [id number] [address] [place] [address] [id number] May, 2017 Dental examination Z01.20 [place] [address] [address] Apr, Atrial fibrillation I48.91 [place] [address] [place] [id number] [address] [place] [address] Apr, [place] [address] [address] Apr, Pain of left breast N64.4 an d Encounter for immunization Z23 [place] [address] [address] Mar, Abnormal TSH R94.6 and Acute combined systolic (congestive) 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 [place] [address] [address] Mar, [place] [address] [place] [id number] [address] [place] [address] Feb, [facility] [address] [address] Feb, Persistent atrial fibrillati on I48.1 and Reactive depression F32.9 [place] [address] [address] Feb, [place] [address] [place] [id number] [address] [place] [address] Feb, [facility] [address] [place] [id number] [address] [place] [address] Jan, [place] [address] [address] Jan, Tear of medial meniscus of l eft knee, current, unspecified tear type, subsequent encounter S83.242D [place] [address] [place] [id number] [address] [place] [address] Dec, [facility] [address] [id number] [address] [place] [address] Dec, [facility] [address] [id number] [address] [place] [address] Dec, [facility] [address] [id number] [address] [place] [address] Nov, Shortness of breath R06.02 a nd Acute right-sided thoracic back pain M54.6 [facility] [address] [id number] [address] [place] [address] Nov, Incomplete tear of right rot ator cuff M75.111 and Tear of medial meniscus of left knee, current, unspecified tear type, subsequent encounter S83.242D [place] [address] [id number] [address] [place] [address] 14 Oct, 2016 Osteoarthritis of left knee, unspecified osteoarthritis type M17.12 [place] [address] [id number] [address] [place] [address] 17 Sep, 2016 Pain in right shoulder M25.5 11 [place] [address] [id number] [address] [place] [address] 17 Sep, 2016 Pain in right shoulder M25.5 11 and Poor vision H54.7 [place] [address] [id number] [address] [place] [phone] 15 Sep, 2016 [place] [address] [id number] [address] [place] [address] Sep, Arthritis M19.90 and Poor vi javier H54.7 [facility] [address] [id number] [address] [place] [address] [id number] Aug, Dental caries K02.9 [facility] [address] [id number] [address] [place] [address] [id number] Jul, Dental examination Z01.20 [facility] [address] [id number] [address] [place] [address] Jul, [facility] [address] [id number] [address] [place] [address] Jul, [facility] [address] [id number] [address] [place] [address] [id number] June, Dental examination Z01.20 [facility] [address] [id number] [address] [place] [address] [id number] June, Dental caries K02.9 [facility] [address] [id number] [address] [place] [address] [id number] May, Dental examination Z01.20 [facility] [address] [id number] [address] [place] [address] May, [facility] [address] [id number] [address] [place] [address] May, Bronchospasm J98.01 [facility] [address] [id number] [address] [place] [address] Apr, Bronchospasm J98.01 [facility] [address] [id number] [address] [place] [address] Apr, [facility] [address] [id number] [address] [place] [address] Apr, Acute non-recurrent maxillar y sinusitis J01.00 and Viral syndrome B34.9 [facility] [address] [id number] [address] [place] [phone] Apr, [facility] [address] [id number] [address] [place] [address] Feb, Impingement syndrome of righ t shoulder M75.41 and Adhesive capsulitis of right shoulder M75.01 [facility] [address] [id number] [address] [place] [address] Dec, Impingement syndrome of righ t shoulder M75.41 and Adhesive capsulitis of right shoulder M75.01 [facility] [address] [id number] [address] [place] [address] Nov, [facility] [address] [id number] [address] [place] [address] Oct, [facility] [address] [id number] [address] [place] [phone] 22 Oct, 2015 Impingement syndrome of righ t shoulder M75.41 [facility] [address] [id number] [address] [place] [phone] 13 Oct, 2015 [facility] [address] [id number] [address] [place] [address] Aug, Impingement syndrome of righ t shoulder M75.41 [facility] [address] [id number] [address] [place] [address] Aug, Oral candidiasis B37.0 [facility] [address] [id number] [address] [place] [address] Jul, Arthritis M19.90 [facility] [address] [id number] [address] [place] [address] Jul, [facility] [address] [id number] [address] [place] [address] June, Arthritis M19.90 and Mixed h yperlipidemia E78.2 [facility] [address] [id number] [address] [place] [address] Apr, Lumbar strain S39.012A [facility] [address] [id number] [place] [address] [phone] Jan, Encounter for dental examina tion Z01.20 and Dental caries K02.9 [facility] [id number] [id number] Jan, Encounter for dental examina tion Z01.20 and Dental examination Z01.20 [facility] [address] [id number] [address] [place] [address] [id number] June, Dental examination V72.2 [facility] [address] [id number] [address] [place] [address] [id number] June, Dental examination V72.2 [facility] [address] [id number] [address] [place] [address], [place] [address] 14 May, 2014 [facility] [address] [id number] [address] [place] [address], [place] [address] May, [facility] [address] [id number] [address] [place] [address], [place] [address] Oct, [facility] [address] [id number] [address] [place] [address], [place] [address] Oct, [facility] [address] [id number] [address] [place] [address], [place] [address] Oct, [facility] [address] [id number] [address] [place] [address], [place] [address] Oct, [facility] [address] [id number] [address] [place] [phone] Sep, [facility] [address] [id number] [address] [place] [address], [place] [address] Sep, [facility] [address] [id number] [address] [place] [phone] Aug, [facility] [address] [id number] [address] [place] [phone] Aug, [facility] [address] [id number] [address] [place] [phone] Aug, [facility] [address] [id number] [address] [place] [address] Aug, [facility] [address] [id number] [address] [place] [id number] Aug, [facility] [address] [id number] [address] [place] [phone] Aug, [facility] [address] [id number] [address] [place] [phone] June, [facility] [address] [id number] [address] [place] [address], [place] [address] June, [facility] [address] [id number] [address] [place] [address], [place] [address] Jan, [facility] [address] [id number] [address] [place] [address], [place] [address] Jan, [facility] [address] [id number] [address] [place] [address], [place] [address] Oct, [facility] [address] [id number] [address] [place] [address], [place] [address] Oct, [facility] [address] [id number] [address] [place] [address], [place] [address] May, [facility] [address] [id number] [address] [place] [address], [place] [address] Mar, [facility] [address] [id number] [address] [place] [address], [place] [address] Nov, [facility] [address] [id number] [address] [place] [address], [place] [address] Oct, [facility] [address] [id number] [address] [place] [address], [place] [address] Aug, [facility] [address] [id number] [address] [place] [address], [place] [address] Aug, [facility] [address] [id number] [address] [place] [address], [place] [address] Aug, [facility] [address] [id number] [address] [place] [address], [place] [address] Aug, [facility] [address] [id number] [address] [place] [address], [place] [address] Aug, [facility] [address] [id number] [address] [place] [address], [place] [address] Aug, [facility] [address] [id number] [address] [place] [phone] Jul, [facility] [address] [id number] [address] [place] [address] Jul, [facility] [address] [id number] [address] [place] [address] Jul, [facility] [address] [id number] [address] [place] [address] Jul, [facility] [address] [id number] [address] [place] [address] Jul, [facility] [address] [id number] [address] [place] [address] June, [facility] [address] [id number] [address] [place] [address] June, [facility] [address] [id number] [address] [place] [address] June, [facility] [address] [id number] [address] [place] [phone] June, [facility] [address] [id number] [address] [place] [phone] June, IMMUNIZATIONS No Known Immunizations SOCIAL HISTORY Never Assessed [facility]u Neftaly Bennett RN PLAN OF CARE Activity Details Follow Up 2 Months Reason: VITAL SIGNS Height 74 in 2017-03-16 Weight 292 lbs 2017-03-16 Temperature 97.2 degrees Fahrenheit 2017-03-16 Heart Rate 78 bpm 2017-03-16 Respiratory Rate 20 2017-03-16 BMI 37.49 kg/m2 2017-03-16 Blood pressure systolic 110 mmHg 2017-03-16 Blood pressure diastolic 62 mmHg 2017-03-16 MEDICATIONS Medication Instructions Dosage Frequency Start Date End Date Duration S kt Aspirin 81 81 MG Orally Once a day 1 tablet 24h Active Furosemide 20 MG Orally Once a day 1 tablet 24h Active Digoxin 250 MCG Orally Once a day 1 tablet 24h Active Lisinopril 5 MG Orally Once a day 1 tablet 24h Active Atorvastatin Calcium 40 MG Orally Once a day 1 tablet 24h Active Spironolactone 25 MG Orally Once a day 1 tablet with food 24h Active Toprol XL 50 MG Orally Once a day 1 tablet 24h Active Eliquis 5 MG Orally 2 times a day 1 tablet 12h Active Ibuprofen 800 MG Orally Three times a day, pc 1 tablet 20 Not-Taking Albuterol Sulfate 90 mcg/actuation Inhalation every 4 hrs, PRN 2 pu ff May, Not-Taking RESULTS No Results PROCEDURES No Known procedures INSTRUCTIONS MEDICATIONS ADMINISTERED No Known Medications MEDICAL (GENERAL) HISTORY Type Description Date Medical History heart murmur Medical History cancer-bladder Medical History asthma Medical History bronchitis Surgical History Cancer was removed from bladder 2009 Hospitalization History Pneumonia 1961 Hospitalization History Heart Attack 2017
--- OUTSIDE RECORDS SUMMARY | 2019-05-02 13:03 | XMS REPORT | Continuity of Care Document ---
Author Organization Unknown Address Unknown Phone Unavailable Allergies Active Description Code Type Severity Reaction Onset Reported/Identified Relationship to Patient Clinical Status Yes NO KNOWN DRUG ALLERGIES UNKNOWN UNKNOWN Yes No Known Drug Allergies [id number] Drug Allergy Unknown N/A 09/28/2009 Yes CAYENNE PEPPER Food Allergy 07/11/2011 Yes CAYENNE PEPPER Food Allergy N/A N/A 07/11/2011 Yes indomethacin Drug Allergy N/A N/A 08/20/2013 Yes CEYANE PEPPER CEYANE PEPPER Unknown N/A 04/25/2016 Yes clindamycin [id number] Drug Aller gy Unknown N/A 04/25/2016 Yes ENDOMETHICIN ENDOMETHICIN Unknown N/A 04/25/2016 Medications Medication Packaging Start Date St op Date Route Dosage Sig ACETAMINOPHEN TAB 500 MG (TYLENOL) MG 03/24/2019 03/24/2019 ONCE&0504 NORMAL SALINE 1000CC IV BAG INJ 0.9 % (NS 1000CC IV BAG) ml 03/24/2019 03/24/2019 ONCE&0504 KETOROLAC VIAL INJ 30 MG/CC (TORADOL VIAL) MG 03/24/2019 03/24/2019 ONCE&0505 OSELTAMIVIR CAP 75 MG (TAMIFLU) MG 03/24/2019 03/24/2019 ONCE&0531 IPRATROPIUM/ALBUTEROL INH SO LN (DUO-NEB INH SOLN) MLS 03/24/2019 03/24/2019 ONCE&0538 Normal SALINE 0.9 % (NS 100cc) (plain bag) ml 03/24/2019 03/24/2019 ONCE&0603 NORMAL SALINE 1000CC IV BAG INJ 0.9 % (NS 1000CC IV BAG) ml 03/24/2019 04/08/2019 CONTINUOUSEVERY 0 Hour METOPROLOL TAB 50 MG (LOPRESSOR) MG 03/24/2019 03/24/2019 ONCE&0640 Diltiazem extended release 180mg cap (CARD IZEM) MG 03/24/2019 03/24/2019 ONCE&0640 METOPROLOL-XL TAB 50 MG (TOPROL XL) MG 03/24/2019 03/24/2019 ONCE&0700 Problems Date Dx Coded Attending Type Code Diagnosis Diagnosed By 09/30/2009 Ot 188.9 07/11/2011 327.23 OBS TRUCTIVE SLEEP APNEA (ADULT) (PEDIATRIC) 07/11/2011 787.3 Flat ulence Eructation And Gas Pain 07/11/2011 V70.0 ROUT INE GENERAL MEDICAL EXAMINATION AT A HEALTH CARE [...] HEALTH CARE FACILITY 07/11/2011 CARROL ANDRADE APRN 327. 23 OBSTRUCTIVE SLEEP APNEA (ADULT) (PEDIATRIC) 07/11/2011 CARROL ANDRADE APRN 787. 3 Flatulence Eructation And Gas Pain 07/11/2011 CARROL ANDRADE APRN V70. 0 ROUTINE GENERAL MEDICAL EXAMINATION AT A HEALTH CARE FACILITY 07/18/2011 242.90 Hyp erthyroidism 07/18/2011 PAMELA WHELAN DO 242.90 Hyperthyroidism 07/18/2011 PAMELA WHELAN DO 242.90 Hyperthyroidism 07/18/2011 PAMELA WHELAN DO K 242.90 Hyperthyroidism 07/18/2011 CARROL ANDRADE APRN 242. 90 Hyperthyroidism 08/27/2011 Ot 989.5 TOXI C EFFECT VENOM 08/27/2011 Ot E000.8 OTH ER EXTERNAL CAUSE STATUS 08/27/2011 Ot E849.1 ACC IDENT ON FARM 08/27/2011 Ot E905.3 HOR NET/WASP/BEE STING 08/27/2011 Ot V06.1 YIOSEDNUNS-[id number]-PUIRRCTBR, COMBINED [ 09/07/2011 525.9 Toot h Pain 09/07/2011 JAKI WHELAN DOA K 525.9 Tooth Pain 09/07/2011 WHELAN DO, PAMELA K 525.9 Tooth Pain 09/07/2011 WHELAN DO PAMELA K 525.9 Tooth Pain 09/07/2011 CARROL ANDRADE APRN 525. 9 Tooth Pain 11/25/2011 716.90 UNS PECIFIED ARTHROPATHY SITE UNSPECIFIED 11/25/2011 WHELAN DO, PAMELA K 716.90 UNSPECIFIED ARTHROPATHY SITE UNSPECIFIED 11/25/2011 WHELAN DO, PAMELA K 716.90 UNSPECIFIED ARTHROPATHY SITE UNSPECIFIED 11/25/2011 WHELAN DO, PAMELA K 716.90 UNSPECIFIED ARTHROPATHY SITE UNSPECIFIED 11/25/2011 CARROL ANDRADE APRN 716. 90 UNSPECIFIED ARTHROPATHY SITE UNSPECIFIED 05/21/2012 CLEOPATRA ROCHA PAMELA K 719.40 PAIN IN JOINT SITE [...] K 786.2 COUGH 05/21/2012 CARROL ANDRADE APRN 719. 40 PAIN IN JOINT SITE UNSPECIFIED 05/21/2012 CARROL ANDRADE APRN 724. 2 LUMBAGO 05/21/2012 CARROL ANDRADE APRN 786. 2 COUGH 08/20/2013 CLEOPATRA ROCHA PAMELA K 692.2 CONTACT DERMATITIS AND OTHER ECZEMA DUE TO SOLVENTS 08/20/2013 JAKI WHELAN DOA K 700 CORNS AND CALLOSITIES 08/20/2013 CLEOPATRA ROCHA PAMELA K 719.46 PAIN IN JOINT INVOLVING LOWER LEG 08/20/2013 WHELAN DO, PAMELA K 782.1 RASH 08/20/2013 WHELAN DO, PAMELA K 692.2 CONTACT DERMATITIS AND OTHER ECZEMA DUE TO SOLVENTS 08/20/2013 WHELAN DO, PAMELA K 700 CORNS AND CALLOSITIES 08/20/2013 WHELAN DO, PAMELA K 719.46 PAIN IN JOINT INVOLVING LOWER LEG 08/20/2013 WHELAN DO, PAMELA K 782.1 RASH 08/20/2013 CARROL ANDRADE APRN 692. 2 CONTACT DERMATITIS AND OTHER ECZ[place] DUE TO SOLVENTS 08/20/2013 CARROL ANDRADE APRN 700 CORNS AND CALLOSITIES 08/20/2013 CARROL ANDRADE APRN 719. 46 PAIN IN JOINT INVOLVING LOWER LEG 08/20/2013 CARROL ANDRADE APRN 782. 1 RASH 11/14/2013 CARROL ANDRADE APRN 717. 3 OTHER AND UNSPECIFIED DERANGEMENT OF MEDIAL MENISCUS 02/11/2014 CONNIE MONTANEZ Ot 717 .2 02/11/2014 CONNIE MONTANEZ Ot 719.46 02/18/2014 CONNIE MONTANEZ Ot 717 .2 02/18/2014 CONNIE MONTANEZ Ot 719.46 02/18/2014 CONNIE MONTANEZ Ot 717 .2 02/18/2014 CONNIE MONTANEZ Ot 719.46 04/25/2016 Ot 573.8 LIVE R DISORDERS NEC 04/25/2016 Ot 787.3 FLAT UL/ERUCTAT/GAS PAIN 04/25/2016 Ot V10.51 HX OF BLADDER MALIGNANCY 04/25/2016 Ot 242.90 THY ROTOX NOS NO CRISIS 04/25/2016 CONNIE MONTANEZ Ot 717 .2 DERANG POST MED MENISCUS 04/25/2016 CONNIE MONTANEZ Ot 719.46 JOINT PAIN-L/LEG 04/25/2016 JUAN CARLOS BROWN, CONNIE Ramirez Ot K02.9 DENTAL CARIES, UNSPECIFIED 04/25/2016 JUAN CARLOS BROWN, CONNIE Ramirez Ot K05.10 CHRONIC GINGIVITIS, PLAQUE INDUCED 04/25/2016 JUAN CARLOS BROWN, CONNIE Ramirez Ot R50.9 FEVER, UNSPECIFIED 04/25/2016 JUAN CARLOS BROWN, CONNIE Ramirez Ot R51 HEADACHE 04/27/2016 Ot 573.8 LIVE R DISORDERS NEC 04/27/2016 Ot 787.3 FLAT UL/ERUCTAT/GAS PAIN 04/27/2016 Ot V10.51 HX OF BLADDER MALIGNANCY 04/27/2016 Ot 242.90 THY ROTOX NOS NO CRISIS 04/27/2016 CONNIE MONTANEZ Ot 717 .2 DERANG POST MED MENISCUS 04/27/2016 CONNIE MONTANEZ Ot 719.46 JOINT PAIN-L/LEG 05/18/2016 Ot 573.8 LIVE R DISORDERS NEC 05/18/2016 Ot 787.3 FLAT UL/ERUCTAT/GAS PAIN 05/18/2016 Ot V10.51 HX OF BLADDER MALIGNANCY 05/18/2016 Ot 242.90 THY ROTOX NOS NO CRISIS 05/18/2016 CONNIE MONTANEZ Ot 717 .2 DERANG POST MED MENISCUS 05/18/2016 CONNIE MONTANEZ Ot 719.46 JOINT PAIN-L/LEG 12/14/2016 CARROL ANDRADEP Ot M94.8X6 OTHER SPECIFIED DISORDERS OF [place], 12/14/2016 CARROL ANDRADE Ot S46.011D STRAIN OF MUSC/TEND THE ROTATOR CUFF OF 12/14/2016 CARROL ANDRADE Ot S83.241D OTH TEAR OF MEDIAL MENISCUS, CURRENT INJ 12/14/2016 CARROL ANDRADEP Ot X58.XXXD EXPOSURE TO OTHER SPECIFIED FACTORS, SUB 12/14/2016 CARROL ANDRADEP Ot Y99. 8 OTHER EXTERNAL CAUSE STATUS 01/03/2017 CARROL ANDRADE DIRECTOR OF LITIGATION Ot M94.8X6 OTHER SPECIFIED DISORDERS OF [place], 01/03/2017 CARROL ANDRADE Ot S46.011D STRAIN OF MUSC/TEND THE ROTATOR CUFF OF 01/03/2017 CARROL ANDRADEP Ot S83.241D OTH TEAR OF MEDIAL MENISCUS, CURRENT INJ 01/03/2017 CARROL ANDRADEP Ot X58.XXXD EXPOSURE TO OTHER SPECIFIED FACTORS, SUB 01/03/2017 CARROL ANDRADEP Ot Y99. 8 OTHER EXTERNAL CAUSE STATUS 01/03/2017 Ot 242.90 THY ROTOX NOS NO CRISIS 01/03/2017 CONNIE MONTANEZ Ot 717 .2 DERANG POST MED MENISCUS 01/03/2017 CONNIE MONTANEZ Ot 719.46 JOINT PAIN-L/LEG 01/03/2017 CARROL ANDRADE DIRECTOR OF LITIGATION Ot M94.8X6 OTHER SPECIFIED DISORDERS OF [place], 01/03/2017 CARROL ANDRADE DIRECTOR OF LITIGATION Ot S46.011D STRAIN OF MUSC/TEND THE ROTATOR CUFF OF 01/03/2017 CARROL ANDRADEP Ot S83.241D OTH TEAR OF MEDIAL MENISCUS, CURRENT INJ 01/03/2017 CARROL ANDRADE DIRECTOR OF LITIGATION Ot X58.XXXD EXPOSURE TO OTHER SPECIFIED FACTORS, SUB 01/03/2017 CARROL ANDRADE DIRECTOR OF LITIGATION Ot Y99. 8 OTHER EXTERNAL CAUSE STATUS 02/22/2017 CARROL ANDRADE DIRECTOR OF LITIGATION Ot M94.8X6 OTHER SPECIFIED DISORDERS OF [place], 02/22/2017 CARROL ANDRADE Ot S46.011D STRAIN OF MUSC/TEND THE ROTATOR CUFF OF 02/22/2017 CARROL ANDRADE DIRECTOR OF LITIGATION Ot S83.241D OTH TEAR OF MEDIAL MENISCUS, CURRENT INJ 02/22/2017 CARROL ANDRADE DIRECTOR OF LITIGATION Ot X58.XXXD EXPOSURE TO OTHER SPECIFIED FACTORS, SUB 02/22/2017 CARROL ANDRADE DIRECTOR OF LITIGATION Ot Y99. 8 OTHER EXTERNAL CAUSE STATUS 02/22/2017 CONNIE MONTANEZ Ot 717 .2 DERANG POST MED MENISCUS 02/22/2017 CONNIE MONTANEZ Ot 719.46 JOINT PAIN-L/LEG 02/22/2017 CARROL ANDRADE DIRECTOR OF LITIGATION Ot M94.8X6 OTHER SPECIFIED DISORDERS OF [place], 02/22/2017 CARROL ANDRADE DIRECTOR OF LITIGATION Ot S46.011D STRAIN OF MUSC/TEND THE ROTATOR CUFF OF 02/22/2017 CARROL ANDRADE DIRECTOR OF LITIGATION Ot S83.241D OTH TEAR OF MEDIAL MENISCUS, CURRENT INJ 02/22/2017 CARROL ANDRADE DIRECTOR OF LITIGATION Ot X58.XXXD EXPOSURE TO OTHER SPECIFIED FACTORS, SUB 02/22/2017 CARROL ANDRADE DIRECTOR OF LITIGATION Ot Y99. 8 OTHER EXTERNAL CAUSE STATUS 02/24/2017 LIZZIE BROWN, TYREL N Ot G47.33 OBSTRUCTIVE SLEEP APNEA (ADULT) (PEDIATR 02/24/2017 TYREL SAMUEL MD, Ot I48.91 UNSPECIFIED ATRIAL FIBRILLATION 02/24/2017 TYREL SAMUEL MD, Ot J45.909 UNSPECIFIED ASTHMA, UNCOMPLICATED 02/24/2017 TYREL SAMUEL MD, Ot M75.101 UNSP ROTATR-CUFF TEAR/RUPTR OF RIGHT SANTY 02/24/2017 TYREL SAMUEL MD, Ot R07 .9 CHEST PAIN, UNSPECIFIED 02/24/2017 TYREL SAMUEL MD, Ot Z68.38 BODY MASS INDEX (BMI) 38.0-38.9, ADULT 02/24/2017 TYREL SAMUEL MD, Ot Z80.52 FAMILY HISTORY OF MALIGNANT NEOPLASM OF 02/24/2017 TYREL SAMUEL MD, Ot Z87.891 PERSONAL HISTORY OF NICOTINE DEPENDENCE 02/24/2017 TYREL SAMUEL MD, Ot Z91.19 PATIENT'S NONCOMPLIANCE W [facility] TR 02/24/2017 TYREL SAMUEL MD, Ot G47.33 OBSTRUCTIVE SLEEP APNEA (ADULT) (PEDIATR 02/24/2017 TYREL SAMUEL MD, Ot I25.10 ATHSCL HEART DISEASE OF [place] CORONARY 02/24/2017 TYREL SAMUEL MD, Ot I34 .0 NONRHEUMATIC MITRAL (VALVE) INSUFFICIENC 02/24/2017 TYREL SAMUEL MD, Ot I42 .9 CARDIOMYOPATHY, UNSPECIFIED 02/24/2017 TYREL SAMUEL MD, Ot I48.91 UNSPECIFIED ATRIAL FIBRILLATION 02/24/2017 TYREL SAMUEL MD, Ot I50.41 ACUTE COMBINED SYSTOLIC AND DIASTOLIC (C 02/24/2017 TYREL SAMUEL MD, Ot J45.909 UNSPECIFIED ASTHMA, UNCOMPLICATED 02/24/2017 TYREL SAMUEL MD, Ot M75.101 UNSP ROTATR-CUFF TEAR/RUPTR OF RIGHT SANTY 02/24/2017 TYREL SAMUEL MD, Ot Z68.38 BODY MASS INDEX (BMI) 38.0-38.9, ADULT 02/24/2017 TYREL SAMUEL MD, Ot Z85.51 PERSONAL HISTORY OF MALIGNANT NEOPLASM O 02/24/2017 LIZZIE MD, TYREL N Ot Z87.891 PERSONAL HISTORY OF NICOTINE DEPENDENCE 02/24/2017 LIZZIE BROWN, TYREL Munoz Ot Z91.19 PATIENT'S NONCOMPLIANCE W OT MEDICAL TR 03/06/2017 DI MOFFETT DIRECTOR OF LITIGATION Ot I48.91 UNSPECIFIED ATRIAL FIBRILLATION 03/06/2017 CONNIE MONTANEZ Ot 717 .2 DERANG POST MED MENISCUS 03/06/2017 CONNIE MONTANEZ Ot 719.46 JOINT PAIN-L/LEG 03/06/2017 CARROL ANDRADE DIRECTOR OF LITIGATION Ot M94.8X6 OTHER SPECIFIED DISORDERS OF [place], 03/06/2017 CARROL ANDRADE DIRECTOR OF LITIGATION Ot S46.011D STRAIN OF MUSC/TEND THE ROTATOR CUFF OF 03/06/2017 CARROL ANDRADE DIRECTOR OF LITIGATION Ot S83.241D OT TEAR OF MEDIAL MENISCUS, CURRENT INJ 03/06/2017 CARROL ANDRADE DIRECTOR OF LITIGATION Ot X58.XXXD EXPOSURE TO OTHER SPECIFIED FACTORS, SUB 03/06/2017 CARROL ANDRADE DIRECTOR OF LITIGATION Ot Y99. 8 OTHER EXTERNAL CAUSE STATUS 03/06/2017 DI MOFFETT DIRECTOR OF LITIGATION Ot I48.91 UNSPECIFIED ATRIAL FIBRILLATION 03/23/2017 OLIVIAMONALISARENUKA E HEDIS COORDINATOR Ot J30.2 OTHER SEASONAL ALLERGIC RHINITIS 03/23/2017 OLIVIA RENUKA E HEDIS COORDINATOR Ot R06.00 DYSPNEA, UNSPECIFIED 03/23/2017 OLIVIA RENUKA E HEDIS COORDINATOR Ot Z87.891 PERSONAL HISTORY OF NICOTINE DEPENDENCE 03/26/2017 OLIVIAMONALISARENUKA E HEDIS COORDINATOR Ot G47.10 HYPERSOMNIA, UNSPECIFIED 03/26/2017 OLIVIA, RENUKA E HEDIS COORDINATOR Ot G47.33 OBSTRUCTIVE SLEEP APNEA (ADULT) (PEDIATR 03/27/2017 OLIVIA RENUKA E HEDIS COORDINATOR Ot G47.10 HYPERSOMNIA, UNSPECIFIED 03/27/2017 OLIVIA RENUKA E HEDIS COORDINATOR Ot G47.33 OBSTRUCTIVE SLEEP APNEA (ADULT) (PEDIATR 04/18/2017 MONALISA BAKERINE E HEDIS COORDINATOR Ot J30.2 OTHER SEASONAL ALLERGIC RHINITIS 04/18/2017 MONALISA BAKERINE E HEDIS COORDINATOR Ot R06.00 DYSPNEA, UNSPECIFIED 04/18/2017 OLIVIAMONALISA TANGINE E HEDIS COORDINATOR Ot Z87.891 PERSONAL HISTORY OF NICOTINE DEPENDENCE 04/18/2017 DI MOFFETT DIRECTOR OF LITIGATION Ot I48.91 UNSPECIFIED ATRIAL FIBRILLATION 04/19/2017 RENUKA BAKER HEDIS COORDINATOR Ot J30.2 OTHER SEASONAL ALLERGIC RHINITIS 04/19/2017 RENUKA BAKER HEDIS COORDINATOR Ot R06.00 DYSPNEA, UNSPECIFIED 04/19/2017 RENUKA BAKER HEDIS COORDINATOR Ot Z87.891 PERSONAL HISTORY OF NICOTINE DEPENDENCE 05/08/2017 KERMIT BROWN FACC, ALI FACP CCDS Ot E07.89 OTHER SPECIFIED DISORDERS OF THYROID 05/08/2017 KERMIT WALTONC, ALI FACP CCDS Ot E66.8 OTHER OBESITY 05/08/2017 KERMIT WALTONC, ALI FACP CCDS Ot G47.33 OBSTRUCTIVE SLEEP APNEA (ADULT) (PEDIATR 05/08/2017 KERMIT BROWN FACC, ALI FACP CCDS Ot I11.0 HYPERTENSIVE HEART DISEASE WITH HEART FA 05/08/2017 KERMIT BROWN FACC, ALI FACP CCDS Ot I42.0 DILATED CARDIOMYOPATHY 05/08/2017 KERMIT BROWN FACC, ALI FACP CCDS Ot I48.0 PAROXYSMAL ATRIAL FIBRILLATION 05/08/2017 KERMIT BROWN FACC, ALI FACP CCDS Ot 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 05/08/2017 CONNIE MONTANEZ Ot 717 .2 DERANG POST MED MENISCUS 05/08/2017 CONNIE MONTANEZ Ot 719.46 JOINT PAIN-L/LEG 05/08/2017 CARROL ANDRADE DIRECTOR OF LITIGATION Ot M94.8X6 OTHER SPECIFIED DISORDERS OF [place], 05/08/2017 CARROL ANDRADE DIRECTOR OF LITIGATION Ot S46.011D STRAIN OF MUSC/TEND THE ROTATOR CUFF OF 05/08/2017 CARROL ANRDADE DIRECTOR OF LITIGATION Ot S83.241D OTH TEAR OF MEDIAL MENISCUS, CURRENT INJ 05/08/2017 CARROL ANDRADE DIRECTOR OF LITIGATION Ot X58.XXXD EXPOSURE TO OTHER SPECIFIED FACTORS, SUB 05/08/2017 CARROL ANDRADE DIRECTOR OF LITIGATION Ot Y99. 8 OTHER EXTERNAL CAUSE STATUS 05/08/2017 DI MOFFETT DIRECTOR OF LITIGATION Ot I48.91 UNSPECIFIED ATRIAL FIBRILLATION 05/08/2017 RENUKA BKAER HEDIS COORDINATOR Ot J30.2 OTHER SEASONAL ALLERGIC RHINITIS 05/08/2017 RENUKA BAKER HEDIS COORDINATOR Ot R06.00 DYSPNEA, UNSPECIFIED 05/08/2017 RENUKA BAKER APRN Ot Z87.891 PERSONAL HISTORY OF NICOTINE DEPENDENCE 05/08/2017 KERMIT BROWN FACC, ALI FACP CCDS Ot E07.89 OTHER SPECIFIED DISORDERS OF THYROID 05/08/2017 KERMIT BROWN FACC, ALI FACP CCDS Ot E66.8 OTHER OBESITY 05/08/2017 KERMIT BROWN FACC, ALI FACP CCDS Ot G47.33 OBSTRUCTIVE SLEEP APNEA (ADULT) (PEDIATR 05/08/2017 KERMIT BROWN FACC, ALI FACP CCDS Ot I11.0 HYPERTENSIVE HEART DISEASE WITH HEART FA 05/08/2017 KERMIT BROWN FACC, ALI FACP CCDS Ot I42.0 DILATED CARDIOMYOPATHY 05/08/2017 KERMIT BROWN FACC, ALI FACP CCDS Ot I48.0 PAROXYSMAL ATRIAL FIBRILLATION 05/08/2017 KERMIT BROWN FACC, ALI FACP CCDS Ot 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 2017 RENUKA BAKER APRN Ot E04.1 NONTOXIC SINGLE THYROID NODULE 2017 RENUKA ABKER APRN Ot I70.0 ATHEROSCLEROSIS OF [place] 2017 RENUKA BAKER APRN Ot J98.4 OTHER DISORDERS OF LUNG 2017 RENUKA BAKER APRN Ot K76.9 LIVER DISEASE, UNSPECIFIED 05/11/2017 KERMIT BROWN FACC, ALI FACP CCDS Ot E07.89 OTHER SPECIFIED DISORDERS OF THYROID 05/11/2017 KERMIT BROWN FACC, ALI FACP CCDS Ot E66.8 OTHER OBESITY 05/11/2017 KERMIT BROWN FACC, ALI FACP CCDS Ot G47.33 OBSTRUCTIVE SLEEP APNEA (ADULT) (PEDIATR 05/11/2017 KERMIT BROWN FACC, ALI FACP CCDS Ot I11.0 HYPERTENSIVE HEART DISEASE WITH HEART FA 05/11/2017 KERMIT BROWN FACC, ALI FACP CCDS Ot I42.0 DILATED CARDIOMYOPATHY 05/11/2017 KERMIT BROWN FACC, ALI FACP CCDS Ot I48.0 PAROXYSMAL ATRIAL FIBRILLATION 05/11/2017 KERMIT BROWN FACC, ALI FACP CCDS Ot 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 06/01/2017 RENUKA BAKER APRN Ot E04.1 NONTOXIC SINGLE THYROID NODULE 06/01/2017 OLIVIA, RENUKA E HEDIS COORDINATOR Ot I70.0 ATHEROSCLEROSIS OF [place] 06/01/2017 RENUKA BAKER HEDIS COORDINATOR Ot J98.4 OTHER DISORDERS OF LUNG 06/01/2017 RENUKA BAKER HEDIS COORDINATOR Ot K76.9 LIVER DISEASE, UNSPECIFIED 06/01/2017 RENUKA BAKER HEDIS COORDINATOR Ot E04.1 NONTOXIC SINGLE THYROID NODULE 06/01/2017 RENUKA BAKER HEDIS COORDINATOR Ot I70.0 ATHEROSCLEROSIS OF [place] 06/01/2017 RENUKA BAKER HEDIS COORDINATOR Ot J98.4 OTHER DISORDERS OF LUNG 06/01/2017 RENUKA BAKER HEDIS COORDINATOR Ot K76.9 LIVER DISEASE, UNSPECIFIED 06/02/2017 RENUKA BAKER APRN Ot E04.1 NONTOXIC SINGLE THYROID NODULE 06/02/2017 RENUKA BAKER HEDIS COORDINATOR Ot I70.0 ATHEROSCLEROSIS OF [place] 06/02/2017 RENUKA BAKER HEDIS COORDINATOR Ot J98.4 OTHER DISORDERS OF LUNG 06/02/2017 RENUKA BAKER HEDIS COORDINATOR Ot K76.9 LIVER DISEASE, UNSPECIFIED 06/13/2017 CONNIE MONTANEZ Ot 717 .2 DERANG POST MED MENISCUS 06/13/2017 CONNIE MONTANEZ Ot 719.46 JOINT PAIN-L/LEG 06/13/2017 CARROL ANDRADE Ot M94.8X6 OTHER SPECIFIED DISORDERS OF [place], 06/13/2017 CARROL ANDRADEP Ot S46.011D STRAIN OF MUSC/TEND THE ROTATOR CUFF OF 06/13/2017 CARROL ANDRADE Ot S83.241D OTH TEAR OF MEDIAL MENISCUS, CURRENT INJ 06/13/2017 CARROL ANDRADE DIRECTOR OF LITIGATION Ot X58.XXXD EXPOSURE TO OTHER SPECIFIED FACTORS, SUB 06/13/2017 CARROL ANDRADE DIRECTOR OF LITIGATION Ot Y99. 8 OTHER EXTERNAL CAUSE STATUS 06/13/2017 DI MOFFETT DIRECTOR OF LITIGATION Ot I48.91 UNSPECIFIED ATRIAL FIBRILLATION 06/13/2017 RENUKA BAKER HEDIS COORDINATOR Ot J30.2 OTHER SEASONAL ALLERGIC RHINITIS 06/13/2017 RENUKA BAKER HEDIS COORDINATOR Ot R06.00 DYSPNEA, UNSPECIFIED 06/13/2017 RENUKA BAKER HEDIS COORDINATOR Ot Z87.891 PERSONAL HISTORY OF NICOTINE DEPENDENCE 06/13/2017 KERMIT BROWN FACC, EEVLIA FACP CCDS Ot E07.89 OTHER SPECIFIED DISORDERS OF THYROID 06/13/2017 KERMIT BROWN FACC, ALI FACP CCDS Ot E66.8 OTHER OBESITY 06/13/2017 KERMIT WALTONC, ALI FACP CCDS Ot G47.33 OBSTRUCTIVE SLEEP APNEA (ADULT) (PEDIATR 06/13/2017 KERMIT WALTONC, ALI FACP CCDS Ot I11.0 HYPERTENSIVE HEART DISEASE WITH HEART FA 06/13/2017 KERMIT BROWN FACC, ALI FACP CCDS Ot I42.0 DILATED CARDIOMYOPATHY 06/13/2017 KERMIT BROWN FACC, ALI FACP CCDS Ot I48.0 PAROXYSMAL ATRIAL FIBRILLATION 06/13/2017 KERMIT BROWN FACC, ALI FACP CCDS Ot 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 06/13/2017 RENUKA BAKER APRN Ot E04.1 NONTOXIC SINGLE THYROID NODULE 06/13/2017 RENUKA BAKER APRN Ot I70.0 ATHEROSCLEROSIS OF [place] 06/13/2017 RENUKA ABKER APRN Ot J98.4 OTHER DISORDERS OF LUNG 06/13/2017 RENUKA BAKER APRN Ot K76.9 LIVER DISEASE, UNSPECIFIED 06/14/2017 KERMIT BROWN FACC, EVELIA FACP CCDS Ot E07.89 OTHER SPECIFIED DISORDERS OF THYROID 06/14/2017 KERMIT BROWN FACC, ALI FACP CCDS Ot E66.8 OTHER OBESITY 06/14/2017 KERMIT BROWN FACC, ALI FACP CCDS Ot G47.33 OBSTRUCTIVE SLEEP APNEA (ADULT) (PEDIATR 06/14/2017 KERMIT BROWN FACC, EVELIA FACP CCDS Ot I11.0 HYPERTENSIVE HEART DISEASE WITH HEART FA 06/14/2017 KERMIT BROWN FACC, EVELIA FACP CCDS Ot I42.0 DILATED CARDIOMYOPATHY 06/14/2017 KERMIT BROWN FACC, ALI FACP CCDS Ot I48.0 PAROXYSMAL ATRIAL FIBRILLATION 06/14/2017 KERMIT BROWN FACC, ALI FACP CCDS Ot 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 06/14/2017 KERMIT BROWN FACC, ALI FACP CCDS Ot N62 HYPERTROPHY OF BREAST 06/14/2017 RENUKA BAKER APRN Ot R06.00 DYSPNEA, UNSPECIFIED 06/19/2017 OLIVIA, RENUKA E HEDIS COORDINATOR Ot R06.00 DYSPNEA, UNSPECIFIED 06/23/2017 KERMIT WALTON, ALI FACP CCDS Ot E07.89 OTHER SPECIFIED DISORDERS OF THYROID 06/23/2017 KERMIT BROWN FACC, ALI FACP CCDS Ot E66.8 OTHER OBESITY 06/23/2017 KERMIT BROWN FACC, ALI FACP CCDS Ot G47.33 OBSTRUCTIVE SLEEP APNEA (ADULT) (PEDIATR 06/23/2017 KERMIT BROWN FACC, ALI FACP CCDS Ot I11.0 HYPERTENSIVE HEART DISEASE WITH HEART FA 06/23/2017 KERMIT WALTON, ALI FACP CCDS Ot I42.0 DILATED CARDIOMYOPATHY 06/23/2017 KERMIT BROWN FACC, ALI FACP CCDS Ot I48.0 PAROXYSMAL ATRIAL FIBRILLATION 06/23/2017 KERMIT BROWN FACC, ALI FACP CCDS Ot 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 06/23/2017 KERMIT BROWN FACC, ALI FACP CCDS Ot N62 HYPERTROPHY OF BREAST 06/23/2017 RENUKA BAKER APRN Ot R06.00 DYSPNEA, UNSPECIFIED 07/14/2017 CONNIE MONTANEZ Ot 717 .2 DERANG POST MED MENISCUS 07/14/2017 CONNIE MONTANEZ Ot 719.46 JOINT PAIN-L/LEG 07/14/2017 CARROL ANDRADE DIRECTOR OF LITIGATION Ot M94.8X6 OTHER SPECIFIED DISORDERS OF CARTILAGE, 07/14/2017 CARROL ANDRADE DIRECTOR OF LITIGATION Ot S46.011D STRAIN OF MUSC/TEND THE ROTATOR CUFF OF 07/14/2017 CARROL ANDRADE DIRECTOR OF LITIGATION Ot S83.241D OTH TEAR OF MEDIAL MENISCUS, CURRENT INJ 07/14/2017 CARROL ANDRADE DIRECTOR OF LITIGATION Ot X58.XXXD EXPOSURE TO OTHER SPECIFIED FACTORS, SUB 07/14/2017 CARROL ANDRADE DIRECTOR OF LITIGATION Ot Y99. 8 OTHER EXTERNAL CAUSE STATUS 07/14/2017 DI MOFFETT DIRECTOR OF LITIGATION Ot I48.91 UNSPECIFIED ATRIAL FIBRILLATION 07/14/2017 RENUKA BAKER HEDIS COORDINATOR Ot J30.2 OTHER SEASONAL ALLERGIC RHINITIS 07/14/2017 RENUKA BAKER APRN Ot R06.00 DYSPNEA, UNSPECIFIED 07/14/2017 RENUKA BAKER APRN Ot Z87.891 PERSONAL HISTORY OF NICOTINE DEPENDENCE 07/14/2017 KERMIT WALTON, ALI FACP CCDS Ot E07.89 OTHER SPECIFIED DISORDERS OF THYROID 07/14/2017 KERMIT WALTON, ALI FACP CCDS Ot E66.8 OTHER OBESITY 07/14/2017 KERMIT WALTON, ALI FACP CCDS Ot G47.33 OBSTRUCTIVE SLEEP APNEA (ADULT) (PEDIATR 07/14/2017 [facility], [facility] F[facility] CCDS Ot I11.0 HYPERTENSIVE HEART DISEASE WITH HEART FA 07/14/2017 KERMIT BROWN [facility], ALI FACP CCDS Ot I42.0 DILATED CARDIOMYOPATHY 07/14/2017 KERMIT WALTON, ALI FACP CCDS Ot I48.0 PAROXYSMAL ATRIAL FIBRILLATION 07/14/2017 KERMIT BROWN FACC, ALI FACP CCDS Ot 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 07/14/2017 RENUKA BAKER APRN Ot E04.1 NONTOXIC SINGLE THYROID NODULE 07/14/2017 RENUKA BAKER APRN Ot I70.0 ATHEROSCLEROSIS OF AORTA 07/14/2017 RENUKA BAKER APRN Ot J98.4 OTHER DISORDERS OF LUNG 07/14/2017 RENUKA BAKER APRN Ot K76.9 LIVER DISEASE, UNSPECIFIED 07/14/2017 KERMIT WALTON, ALI FACP CCDS Ot E07.89 OTHER SPECIFIED DISORDERS OF THYROID 07/14/2017 KERMIT WALTON, ALI FACP CCDS Ot E66.8 OTHER OBESITY 07/14/2017 KERMIT WALTON, ALI FACP CCDS Ot G47.33 OBSTRUCTIVE SLEEP APNEA (ADULT) (PEDIATR 07/14/2017 KERMIT BROWN [facility], ALI FACP CCDS Ot I11.0 HYPERTENSIVE HEART DISEASE WITH HEART FA 07/14/2017 KERMIT WALTON, ALI FACP CCDS Ot I42.0 DILATED CARDIOMYOPATHY 07/14/2017 KERMIT WALTON, ALI FACP CCDS Ot I48.0 PAROXYSMAL ATRIAL FIBRILLATION 07/14/2017 KERMIT BROWN FACC, ALI FACP CCDS Ot 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 07/14/2017 KERMIT BROWN FACC, ALI FACP CCDS Ot N62 HYPERTROPHY OF BREAST 07/14/2017 RENUKA BAKER APRN Ot R06.00 DYSPNEA, UNSPECIFIED 07/17/2017 VICK FRANK MD Ot E04 .2 NONTOXIC MULTINODULAR GOITER 09/19/2017 MONIKA BROWN, VICK Soto Ot E04 .2 NONTOXIC MULTINODULAR GOITER 10/06/2017 MONIKA BROWN, VICK Soto Ot E04 .2 NONTOXIC MULTINODULAR GOITER 10/09/2017 RENUKA BAKER APRN Ot E04.1 NONTOXIC SINGLE THYROID NODULE 10/09/2017 RENUKA BAKER HEDIS COORDINATOR Ot I70.0 ATHEROSCLEROSIS OF AORTA 10/09/2017 RENUKA BAKER HEDIS COORDINATOR Ot J98.4 OTHER DISORDERS OF LUNG 10/09/2017 RENUKA BAKER HEDIS COORDINATOR Ot K76.9 LIVER DISEASE, UNSPECIFIED 10/09/2017 KERMIT BROWN FACC, ALI FACP CCDS Ot E07.89 OTHER SPECIFIED DISORDERS OF THYROID 10/09/2017 KERMIT BROWN FACC, ALI FACP CCDS Ot E66.8 OTHER OBESITY 10/09/2017 KERMIT BROWN FACC, ALI FACP CCDS Ot G47.33 OBSTRUCTIVE SLEEP APNEA (ADULT) (PEDIATR 10/09/2017 KERMIT BROWN FACC, ALI FACP CCDS Ot I11.0 HYPERTENSIVE HEART DISEASE WITH HEART FA 10/09/2017 KERMIT BROWN FACC, ALI FACP CCDS Ot I42.0 DILATED CARDIOMYOPATHY 10/09/2017 KERMIT BROWN FACC, ALI FACP CCDS Ot I48.0 PAROXYSMAL ATRIAL FIBRILLATION 10/09/2017 KERMIT WALTONC, ALI FACP CCDS Ot 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 10/09/2017 KERMIT WALTONC, ALI FACP CCDS Ot N62 HYPERTROPHY OF BREAST 10/09/2017 RENUKA BAKER HEDIS COORDINATOR Ot R06.00 DYSPNEA, UNSPECIFIED 10/10/2017 RENUKA BAKER HEDIS COORDINATOR Ot E04.1 NONTOXIC SINGLE THYROID NODULE 10/10/2017 RENUKA BAKER HEDIS COORDINATOR Ot I70.0 ATHEROSCLEROSIS OF AORTA 10/10/2017 RENUKA BAKER HEDIS COORDINATOR Ot J98.4 OTHER DISORDERS OF LUNG 10/10/2017 RENUKA BAKER HEDIS COORDINATOR Ot K76.9 LIVER DISEASE, UNSPECIFIED 10/10/2017 Ot E04.2 NONT OXIC MULTINODULAR GOITER 10/12/2017 RENUKA BAKER HEDIS COORDINATOR Ot E04.1 NONTOXIC SINGLE THYROID NODULE 10/12/2017 RENUKA BAKER APRN Ot I70.0 ATHEROSCLEROSIS OF AORTA 10/12/2017 RENUKA BAKER APRN Ot J98.4 OTHER DISORDERS OF LUNG 10/12/2017 RENUKA BAKER APRN Ot K76.9 LIVER DISEASE, UNSPECIFIED 10/13/2017 KERMIT BROWN FACC, ALI FACP CCDS Ot E07.89 OTHER SPECIFIED DISORDERS OF THYROID 10/13/2017 KERMIT WALTONC, ALI FACP CCDS Ot E66.8 OTHER OBESITY 10/13/2017 KERMIT BROWN FACC, ALI FACP CCDS Ot G47.33 OBSTRUCTIVE SLEEP APNEA (ADULT) (PEDIATR 10/13/2017 KERMIT BROWN FACC, ALI FACP CCDS Ot I11.0 HYPERTENSIVE HEART DISEASE WITH HEART FA 10/13/2017 KERMIT WALTONC, ALI FACP CCDS Ot I42.0 DILATED CARDIOMYOPATHY 10/13/2017 KERMIT BROWN FACC, ALI FACP CCDS Ot I48.0 PAROXYSMAL ATRIAL FIBRILLATION 10/13/2017 KERMIT BROWN FACC, ALI FACP CCDS Ot 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 10/13/2017 KERMIT WALTONC, ALI FACP CCDS Ot N62 HYPERTROPHY OF BREAST 10/13/2017 RENUKA BAKER APRN Ot R06.00 DYSPNEA, UNSPECIFIED 10/20/2017 VICK FRANK MD Ot E04 .2 NONTOXIC MULTINODULAR GOITER 10/20/2017 KERMIT BROWN FACC, ALI FACP CCDS Ot E07.89 OTHER SPECIFIED DISORDERS OF THYROID 10/20/2017 KERMIT BROWN FACC, ALI FACP CCDS Ot E66.8 OTHER OBESITY 10/20/2017 KERMIT WALTONC, ALI FACP CCDS Ot G47.33 OBSTRUCTIVE SLEEP APNEA (ADULT) (PEDIATR 10/20/2017 KERMIT BROWN FACC, ALI FACP CCDS Ot I11.0 HYPERTENSIVE HEART DISEASE WITH HEART FA 10/20/2017 KERMIT WALTONC, ALI FACP CCDS Ot I42.0 DILATED CARDIOMYOPATHY 10/20/2017 KERMIT BROWN FACC, ALI FACP CCDS Ot I48.0 PAROXYSMAL ATRIAL FIBRILLATION 10/20/2017 KERMIT BROWN FACC, ALI FACP CCDS Ot 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 11/07/2017 KERMIT MD FACC, ALI FACP CCDS Ot E07.89 OTHER SPECIFIED DISORDERS OF THYROID 11/07/2017 KERMIT BROWN FACC, ALI FACP CCDS Ot E66.8 OTHER OBESITY 11/07/2017 KERMIT BROWN FACC, ALI FACP CCDS Ot G47.33 OBSTRUCTIVE SLEEP APNEA (ADULT) (PEDIATR 11/07/2017 KERMIT BROWN FACC, ALI FACP CCDS Ot I11.0 HYPERTENSIVE HEART DISEASE WITH HEART FA 11/07/2017 KERMIT BROWN FACC, ALI FACP CCDS Ot I42.0 DILATED CARDIOMYOPATHY 11/07/2017 KERMIT BROWN FACC, ALI FACP CCDS Ot I48.0 PAROXYSMAL ATRIAL FIBRILLATION 11/07/2017 KERMIT BROWN FACC, ALI FACP CCDS Ot 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 11/07/2017 KERMIT BROWN FACC, ALI FACP CCDS Ot N62 HYPERTROPHY OF BREAST 11/07/2017 RENUKA BAKER HEDIS COORDINATOR Ot R06.00 DYSPNEA, UNSPECIFIED 11/22/2017 GEOVANNAMADI DIRECTOR OF LITIGATION Ot R10.30 LOWER ABDOMINAL PAIN, UNSPECIFIED 11/29/2017 DI MOFFETT DIRECTOR OF LITIGATION Ot R10.30 LOWER ABDOMINAL PAIN, UNSPECIFIED 06/20/2018 DI MOFFETT DIRECTOR OF LITIGATION Ot I48.91 UNSPECIFIED ATRIAL FIBRILLATION 06/20/2018 RENUKA BAKER HEDIS COORDINATOR Ot J30.2 OTHER SEASONAL ALLERGIC RHINITIS 06/20/2018 RENUKA BAKER HEDIS COORDINATOR Ot R06.00 DYSPNEA, UNSPECIFIED 06/20/2018 RENUKA BAKER HEDIS COORDINATOR Ot Z87.891 PERSONAL HISTORY OF NICOTINE DEPENDENCE 06/20/2018 KERMIT BROWN FACC, EVELIA FACP CCDS Ot E07.89 OTHER SPECIFIED DISORDERS OF THYROID 06/20/2018 KERMIT BROWN FACC, EVELIA FACP CCDS Ot E66.8 OTHER OBESITY 06/20/2018 KERMIT BROWN FACC, EVELIA FACP CCDS Ot G47.33 OBSTRUCTIVE SLEEP APNEA (ADULT) (PEDIATR 06/20/2018 KERMIT BROWN FACC, ALI FACP CCDS Ot I11.0 HYPERTENSIVE HEART DISEASE WITH HEART FA 06/20/2018 KERMIT BROWN FACC, ALI FACP CCDS Ot I42.0 DILATED CARDIOMYOPATHY 06/20/2018 KERMIT BROWN FACC, ALI FACP CCDS Ot I48.0 PAROXYSMAL ATRIAL FIBRILLATION 06/20/2018 KERMIT WALTON, ALI FACP CCDS Ot 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 06/20/2018 RENUKA BAKER HEDIS COORDINATOR Ot E04.1 NONTOXIC SINGLE THYROID NODULE 06/20/2018 RENUKA BAKER HEDIS COORDINATOR Ot I70.0 ATHEROSCLEROSIS OF AORTA 06/20/2018 RENUKA BAKER HEDIS COORDINATOR Ot J98.4 OTHER DISORDERS OF LUNG 06/20/2018 RENUKA BAKER HEDIS COORDINATOR Ot K76.9 LIVER DISEASE, UNSPECIFIED 06/20/2018 KERMIT BROWN FAC, ALI FACP CCDS Ot E07.89 OTHER SPECIFIED DISORDERS OF THYROID 06/20/2018 KERMIT BROWN FAC, ALI FACP CCDS Ot E66.8 OTHER OBESITY 06/20/2018 KERMIT BROWN [facility], ALI FACP CCDS Ot G47.33 OBSTRUCTIVE SLEEP APNEA (ADULT) (PEDIATR 06/20/2018 KERMIT BROWN FACC, ALI FACP CCDS Ot I11.0 HYPERTENSIVE HEART DISEASE WITH HEART FA 06/20/2018 KERMIT BROWN [facility], ALI FACP CCDS Ot I42.0 DILATED CARDIOMYOPATHY 06/20/2018 KERMIT BROWN [facility], ALI FACP CCDS Ot I48.0 PAROXYSMAL ATRIAL FIBRILLATION 06/20/2018 KERMIT BROWN [facility], ALI FACP CCDS Ot 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 06/20/2018 KERMIT BROWN [facility], ALI FACP CCDS Ot N62 HYPERTROPHY OF BREAST 06/20/2018 RENUKA BAKER HEDIS COORDINATOR Ot R06.00 DYSPNEA, UNSPECIFIED 06/20/2018 VICK FRANK MD Ot E04 .2 NONTOXIC MULTINODULAR GOITER 06/20/2018 Ot E04.2 NONT OXIC MULTINODULAR GOITER 06/20/2018 DI MOFFETT DIRECTOR OF LITIGATION Ot R10.30 LOWER ABDOMINAL PAIN, UNSPECIFIED 06/20/2018 CONNIE MONTANEZ Ot 717 .2 DERANG POST MED MENISCUS 06/20/2018 CONNIE MONTANEZ Ot 719.46 JOINT PAIN-L/LEG 06/20/2018 CARROL ANDRADE DIRECTOR OF LITIGATION Ot M94.8X6 OTHER SPECIFIED DISORDERS OF CARTILAGE, 06/20/2018 CARROL ANDRADE DIRECTOR OF LITIGATION Ot S46.011D STRAIN OF MUSC/TEND THE ROTATOR CUFF OF 06/20/2018 CARROL ANDRADE DIRECTOR OF LITIGATION Ot S83.241D OTH TEAR OF MEDIAL MENISCUS, CURRENT INJ 06/20/2018 ANDRADECARROL Ramirez DIRECTOR OF LITIGATION Ot X58.XXXD EXPOSURE TO OTHER SPECIFIED FACTORS, SUB 06/20/2018 CARROL ANDRADE DIRECTOR OF LITIGATION Ot Y99. 8 OTHER EXTERNAL CAUSE STATUS 06/20/2018 MARQUEZ MOFFETTHER Bapitste DIRECTOR OF LITIGATION Ot I48.91 UNSPECIFIED ATRIAL FIBRILLATION 06/20/2018 RENUKA BAKER HEDIS COORDINATOR Ot J30.2 OTHER SEASONAL ALLERGIC RHINITIS 06/20/2018 RENUKA BAKER HEDIS COORDINATOR Ot R06.00 DYSPNEA, UNSPECIFIED 06/20/2018 RENUKA BAKER HEDIS COORDINATOR Ot Z87.891 PERSONAL HISTORY OF NICOTINE DEPENDENCE 06/22/2018 SANNA LI DO Ot E04.2 NONTOXIC MULTINODULAR GOITER 06/22/2018 DI MOFFETT DIRECTOR OF LITIGATION Ot I48.91 UNSPECIFIED ATRIAL FIBRILLATION 06/22/2018 RENUKA BAKER HEDIS COORDINATOR Ot J30.2 OTHER SEASONAL ALLERGIC RHINITIS 06/22/2018 RENUKA BAKER HEDIS COORDINATOR Ot R06.00 DYSPNEA, UNSPECIFIED 06/22/2018 RENUKA BAKER HEDIS COORDINATOR Ot Z87.891 PERSONAL HISTORY OF NICOTINE DEPENDENCE 06/22/2018 KERMIT BROWN FACC, EVELIA FACP CCDS Ot E07.89 OTHER SPECIFIED DISORDERS OF THYROID 06/22/2018 KERMIT BROWN FACC, EVELIA FACP CCDS Ot E66.8 OTHER OBESITY 06/22/2018 KERMIT BROWN FACC, EVELIA FACP CCDS Ot G47.33 OBSTRUCTIVE SLEEP APNEA (ADULT) (PEDIATR 06/22/2018 KERMIT BROWN FACC, ALI FACP CCDS Ot I11.0 HYPERTENSIVE HEART DISEASE WITH HEART FA 06/22/2018 KERMIT BROWN FACC, EVELIA FACP CCDS Ot I42.0 DILATED CARDIOMYOPATHY 06/22/2018 KERMIT BROWN FACC, ALI FACP CCDS Ot I48.0 PAROXYSMAL ATRIAL FIBRILLATION 06/22/2018 KERMIT BROWN FACC, ALI FACP CCDS Ot 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 06/22/2018 RENUKA BAKER HEDIS COORDINATOR Ot E04.1 NONTOXIC SINGLE THYROID NODULE 06/22/2018 RENUKA BAKER HEDIS COORDINATOR Ot I70.0 ATHEROSCLEROSIS OF AORTA 06/22/2018 RENUKA BAKER APRN Ot J98.4 OTHER DISORDERS OF LUNG 06/22/2018 RENUKA BAKER HEDIS COORDINATOR Ot K76.9 LIVER DISEASE, UNSPECIFIED 06/22/2018 KERMIT WALTON, ALI FACP CCDS Ot E07.89 OTHER SPECIFIED DISORDERS OF THYROID 06/22/2018 KERMIT BROWN [facility], ALI FACP CCDS Ot E66.8 OTHER OBESITY 06/22/2018 KERMIT BROWN [facility], ALI FACP CCDS Ot G47.33 OBSTRUCTIVE SLEEP APNEA (ADULT) (PEDIATR 06/22/2018 KERMIT BROWN [facility], ALI FACP CCDS Ot I11.0 HYPERTENSIVE HEART DISEASE WITH HEART FA 06/22/2018 KERMIT BROWN [facility], ALI FACP CCDS Ot I42.0 DILATED CARDIOMYOPATHY 06/22/2018 KERMIT BROWN [facility], ALI FACP CCDS Ot I48.0 PAROXYSMAL ATRIAL FIBRILLATION 06/22/2018 KERMIT BROWN [facility], ALI FACP CCDS Ot 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 06/22/2018 KERMIT BROWN [facility], ALI FACP CCDS Ot N62 HYPERTROPHY OF BREAST 06/22/2018 RENUKA BAKER APRN Ot R06.00 DYSPNEA, UNSPECIFIED 06/22/2018 VICK FRANK MD Ot E04 .2 NONTOXIC MULTINODULAR GOITER 06/22/2018 Ot E04.2 NONT OXIC MULTINODULAR GOITER 06/22/2018 DI MOFFETT DIRECTOR OF LITIGATION Ot R10.30 LOWER ABDOMINAL PAIN, UNSPECIFIED 06/22/2018 SANNA LI DO Ot E04.2 NONTOXIC MULTINODULAR GOITER 06/29/2018 SANNA LI DO Ot E04.2 NONTOXIC MULTINODULAR GOITER 07/10/2018 CONNIE MONTANEZ Ot 717 .2 DERANG POST MED MENISCUS 07/10/2018 CONNIE MONTANEZ Ot 719.46 JOINT PAIN-L/LEG 07/10/2018 CARROL ANDRADE DIRECTOR OF LITIGATION Ot M94.8X6 OTHER SPECIFIED DISORDERS OF [place], 07/10/2018 CARROL ANDRADE DIRECTOR OF LITIGATION Ot S46.011D STRAIN OF MUSC/TEND THE ROTATOR CUFF OF 07/10/2018 CARROL ANDRADE DIRECTOR OF LITIGATION Ot S83.241D OTH TEAR OF MEDIAL MENISCUS, CURRENT INJ 07/10/2018 CARROL ANDRADE DIRECTOR OF LITIGATION Ot X58.XXXD EXPOSURE TO OTHER SPECIFIED FACTORS, SUB 07/10/2018 CARROL ANDRADE DIRECTOR OF LITIGATION Ot Y99. 8 OTHER EXTERNAL CAUSE STATUS 07/10/2018 DI MOFFETT DIRECTOR OF LITIGATION Ot I48.91 UNSPECIFIED ATRIAL FIBRILLATION 07/10/2018 RENUKA BAKER HEDIS COORDINATOR Ot J30.2 OTHER SEASONAL ALLERGIC RHINITIS 07/10/2018 RENUKA BAKER HEDIS COORDINATOR Ot R06.00 DYSPNEA, UNSPECIFIED 07/10/2018 RENUKA BAKER HEDIS COORDINATOR Ot Z87.891 PERSONAL HISTORY OF NICOTINE DEPENDENCE 07/10/2018 LI DO, SANNA L Ot E04.2 NONTOXIC MULTINODULAR GOITER 07/10/2018 LI DO, SANNA L Ot E04.2 NONTOXIC MULTINODULAR GOITER 07/10/2018 LI DO, SANNA L Ot E04.2 NONTOXIC MULTINODULAR GOITER 07/10/2018 BRETHREN DO, SANNA L Ot E04.2 NONTOXIC MULTINODULAR GOITER 07/17/2018 CONNIE MONTANEZ Ot 717 .2 DERANG POST MED MENISCUS 07/17/2018 CONNIE MONTANEZ Ot 719.46 JOINT PAIN-L/LEG 07/17/2018 CARROL ANDRADE DIRECTOR OF LITIGATION Ot M94.8X6 OTHER SPECIFIED DISORDERS OF [place]ARTILAGE, 07/17/2018 CARROL ANDRADEP Ot S46.011D STRAIN OF MUSC/TEND THE ROTATOR CUFF OF 07/17/2018 CARROL ANDARDEP Ot S83.241D OTH TEAR OF MEDIAL MENISCUS, CURRENT INJ 07/17/2018 CARROL ANDRADE DIRECTOR OF LITIGATION Ot X58.XXXD EXPOSURE TO OTHER SPECIFIED FACTORS, SUB 07/17/2018 CARROL ANDRADE DIRECTOR OF LITIGATION Ot Y99. 8 OTHER EXTERNAL CAUSE STATUS 07/17/2018 DI MOFFETT Emile DIRECTOR OF LITIGATION Ot I48.91 UNSPECIFIED ATRIAL FIBRILLATION 07/17/2018 RENUKA BAKER HEDIS COORDINATOR Ot J30.2 OTHER SEASONAL ALLERGIC RHINITIS 07/17/2018 RENUKA BAKER HEDIS COORDINATOR Ot R06.00 DYSPNEA, UNSPECIFIED 07/17/2018 RENUKA BAKER APRN Ot Z87.891 PERSONAL HISTORY OF NICOTINE DEPENDENCE 07/17/2018 Ot E04.2 NONT OXIC MULTINODULAR GOITER 07/17/2018 DO, SANNA L Ot E04.2 NONTOXIC MULTINODULAR GOITER 07/17/2018 DO, SANNA L Ot E04.2 NONTOXIC MULTINODULAR GOITER 07/17/2018 DO, SANNA L Ot E04.2 NONTOXIC MULTINODULAR GOITER 07/17/2018 DO, SANNA L Ot E04.2 NONTOXIC MULTINODULAR GOITER 07/20/2018 CONNIE MONTANEZ Ot 717 .2 DERANG POST MED MENISCUS 07/20/2018 CONNIE MONTANEZ Ot 719.46 JOINT PAIN-L/LEG 07/20/2018 CARROL ANDRADE DIRECTOR OF LITIGATION Ot M94.8X6 OTHER SPECIFIED DISORDERS OF [place]ARTILAGE, 07/20/2018 CARROL ANDRADE DIRECTOR OF LITIGATION Ot S46.011D STRAIN OF MUSC/TEND THE ROTATOR CUFF OF 07/20/2018 CARROL ANDRADE DIRECTOR OF LITIGATION Ot S83.241D OTH TEAR OF MEDIAL MENISCUS, CURRENT INJ 07/20/2018 CARROL ANDRADE DIRECTOR OF LITIGATION Ot X58.XXXD EXPOSURE TO OTHER SPECIFIED FACTORS, SUB 07/20/2018 CARROL ANDRADE DIRECTOR OF LITIGATION Ot Y99. 8 OTHER EXTERNAL CAUSE STATUS 07/20/2018 DI MOFFETT DIRECTOR OF LITIGATION Ot I48.91 UNSPECIFIED ATRIAL FIBRILLATION 07/20/2018 RENUKA BAKER APRN Ot J30.2 OTHER SEASONAL ALLERGIC RHINITIS 07/20/2018 RENUKA BAKER APRN Ot R06.00 DYSPNEA, UNSPECIFIED 07/20/2018 RENUKA BAKER APRN Ot Z87.891 PERSONAL HISTORY OF NICOTINE DEPENDENCE 07/20/2018 Ot E04.2 NONT OXIC MULTINODULAR GOITER 07/20/2018 DO, SANNA L Ot E04.2 NONTOXIC MULTINODULAR GOITER 07/20/2018 DO, SANNA L Ot E04.2 NONTOXIC MULTINODULAR GOITER 07/24/2018 LI DO, SANNA L Ot E04.2 NONTOXIC MULTINODULAR GOITER 07/24/2018 LI DO, SANNA L Ot E04.2 NONTOXIC MULTINODULAR GOITER 08/03/2018 DO, SANNA L Ot E04.2 NONTOXIC MULTINODULAR GOITER 08/03/2018 DO, SANNA L Ot E04.2 NONTOXIC MULTINODULAR GOITER 08/03/2018 Ot E04.2 NONT OXIC MULTINODULAR GOITER 08/06/2018 DI MOFFETT Emile DIRECTOR OF LITIGATION Ot I48.91 UNSPECIFIED ATRIAL FIBRILLATION 08/06/2018 RENUKA BAKER HEDIS COORDINATOR Ot J30.2 OTHER SEASONAL ALLERGIC RHINITIS 08/06/2018 RENUKA BAKER HEDIS COORDINATOR Ot R06.00 DYSPNEA, UNSPECIFIED 08/06/2018 RENUKA BAKER HEDIS COORDINATOR Ot Z87.891 PERSONAL HISTORY OF NICOTINE DEPENDENCE 08/06/2018 KERMIT BROWN FACC, EVELIA FACP CCDS Ot E07.89 OTHER SPECIFIED DISORDERS OF THYROID 08/06/2018 KERMIT BROWN FACC, EVELIA FACP CCDS Ot E66.8 OTHER OBESITY 08/06/2018 KERMIT BROWN FACC, ALI FACP CCDS Ot G47.33 OBSTRUCTIVE SLEEP APNEA (ADULT) (PEDIATR 08/06/2018 KERMIT BROWN FACC, ALI FACP CCDS Ot I11.0 HYPERTENSIVE HEART DISEASE WITH HEART FA 08/06/2018 KERMIT BROWN FACC, ALI FACP CCDS Ot I42.0 DILATED CARDIOMYOPATHY 08/06/2018 KERMIT BROWN FACC, ALI FACP CCDS Ot I48.0 PAROXYSMAL ATRIAL FIBRILLATION 08/06/2018 KERMIT BROWN FACC, ALI FACP CCDS Ot 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 08/06/2018 RENUKA BAKER HEDIS COORDINATOR Ot E04.1 NONTOXIC SINGLE THYROID NODULE 08/06/2018 RENUKA BAKER HEDIS COORDINATOR Ot I70.0 ATHEROSCLEROSIS OF AORTA 08/06/2018 RENUKA BAKER HEDIS COORDINATOR Ot J98.4 OTHER DISORDERS OF LUNG 08/06/2018 RENUKA BAKER HEDIS COORDINATOR Ot K76.9 LIVER DISEASE, UNSPECIFIED 08/06/2018 KERMIT BROWN FACC, ALI FACP CCDS Ot E07.89 OTHER SPECIFIED DISORDERS OF THYROID 08/06/2018 KERMIT BROWN FACC, ALI FACP CCDS Ot E66.8 OTHER OBESITY 08/06/2018 KERMIT BROWN FACC, [facility] FACP CCDS Ot G47.33 OBSTRUCTIVE SLEEP APNEA (ADULT) (PEDIATR 08/06/2018 KERMIT BROWN FACC, ALI FACP CCDS Ot I11.0 HYPERTENSIVE HEART DISEASE WITH HEART FA 08/06/2018 KERMIT BROWN FACC, ALI FACP CCDS Ot I42.0 DILATED CARDIOMYOPATHY 08/06/2018 KERMIT BROWN FACC, ALI FACP CCDS Ot I48.0 PAROXYSMAL ATRIAL FIBRILLATION 08/06/2018 KERMIT BROWN FACC, ALI FACP CCDS Ot 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 08/06/2018 KERMIT BROWN FACC, ALI FACP CCDS Ot N62 HYPERTROPHY OF BREAST 08/06/2018 RENUKA BAKER APRN Ot R06.00 DYSPNEA, UNSPECIFIED 08/06/2018 VICK FRANK MD Ot E04 .2 NONTOXIC MULTINODULAR GOITER 08/06/2018 Ot E04.2 NONT OXIC MULTINODULAR GOITER 08/06/2018 DI MOFFETT DIRECTOR OF LITIGATION Ot R10.30 LOWER ABDOMINAL PAIN, UNSPECIFIED 08/06/2018 SANNA LI DO Ot E04.2 NONTOXIC MULTINODULAR GOITER 08/06/2018 SANNA LI DO Ot E04.2 NONTOXIC MULTINODULAR GOITER 08/09/2018 CONNIE MONTANEZ Ot 717 .2 DERANG POST MED MENISCUS 08/09/2018 CONNIE MONTANEZ Ot 719.46 JOINT PAIN-L/LEG 08/09/2018 CARROL ANDRADEP Ot M94.8X6 OTHER SPECIFIED DISORDERS OF [place], 08/09/2018 CARROL ANDRADE DIRECTOR OF LITIGATION Ot S46.011D STRAIN OF MUSC/TEND THE ROTATOR CUFF OF 08/09/2018 CARROL ANDRADE DIRECTOR OF LITIGATION Ot S83.241D OTH TEAR OF MEDIAL MENISCUS, CURRENT INJ 08/09/2018 CARROL ANDRADE DIRECTOR OF LITIGATION Ot X58.XXXD EXPOSURE TO OTHER SPECIFIED FACTORS, SUB 08/09/2018 CARROL ANDRADE DIRECTOR OF LITIGATION Ot Y99. 8 OTHER EXTERNAL CAUSE STATUS 08/09/2018 DI MOFFETT DIRECTOR OF LITIGATION Ot I48.91 UNSPECIFIED ATRIAL FIBRILLATION 08/09/2018 RENUKA BAKER APRN Ot J30.2 OTHER SEASONAL ALLERGIC RHINITIS 08/09/2018 RENUKA BAKER APRN Ot R06.00 DYSPNEA, UNSPECIFIED 08/09/2018 RENUKA BAKER HEDIS COORDINATOR Ot Z87.891 PERSONAL HISTORY OF NICOTINE DEPENDENCE 08/09/2018 KERMIT BROWN FACC, ALI FACP CCDS Ot E07.89 OTHER SPECIFIED DISORDERS OF THYROID 08/09/2018 KERIMT BROWN FACC, ALI FACP CCDS Ot E66.8 OTHER OBESITY 08/09/2018 KERMIT WALTONC, ALI FACP CCDS Ot G47.33 OBSTRUCTIVE SLEEP APNEA (ADULT) (PEDIATR 08/09/2018 KERMIT WALTONC, ALI FACP CCDS Ot I11.0 HYPERTENSIVE HEART DISEASE WITH HEART FA 08/09/2018 KERMIT BROWN FACC, ALI FACP CCDS Ot I42.0 DILATED CARDIOMYOPATHY 08/09/2018 KERMIT BROWN FACC, ALI FACP CCDS Ot I48.0 PAROXYSMAL ATRIAL FIBRILLATION 08/09/2018 KERMIT BROWN FACC, ALI FACP CCDS Ot 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 08/09/2018 RENUKA BAKER APRN Ot E04.1 NONTOXIC SINGLE THYROID NODULE 08/09/2018 RENUKA BAKER APRN Ot I70.0 ATHEROSCLEROSIS OF AORTA 08/09/2018 RENUKA BAKER APRN Ot J98.4 OTHER DISORDERS OF LUNG 08/09/2018 RENUKA BAKER HEDIS COORDINATOR Ot K76.9 LIVER DISEASE, UNSPECIFIED 08/09/2018 KERMIT BROWN FACC, ALI FACP CCDS Ot E07.89 OTHER SPECIFIED DISORDERS OF THYROID 08/09/2018 KERMIT BROWN FACC, ALI FACP CCDS Ot E66.8 OTHER OBESITY 08/09/2018 KERMIT BROWN FACC, ALI FACP CCDS Ot G47.33 OBSTRUCTIVE SLEEP APNEA (ADULT) (PEDIATR 08/09/2018 KERMIT BROWN FACC, ALI FACP CCDS Ot I11.0 HYPERTENSIVE HEART DISEASE WITH HEART FA 08/09/2018 KERMIT BROWN FACC, ALI FACP CCDS Ot I42.0 DILATED CARDIOMYOPATHY 08/09/2018 KERMIT BROWN FACC, ALI FACP CCDS Ot I48.0 PAROXYSMAL ATRIAL FIBRILLATION 08/09/2018 KERMIT BROWN FACC, ALI FACP CCDS Ot 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 08/09/2018 KERMIT BROWN FACC, EVELIA YOUNGER CCDS Ot N62 HYPERTROPHY OF BREAST 08/09/2018 RENUKA BAKER APRN Ot R06.00 DYSPNEA, UNSPECIFIED 08/09/2018 MONIKA BROWN, VICK Soto Ot E04 .2 NONTOXIC MULTINODULAR GOITER 08/09/2018 Ot E04.2 NONT OXIC MULTINODULAR GOITER 08/09/2018 BAIDI ROSE L DIRECTOR OF LITIGATION Ot R10.30 LOWER ABDOMINAL PAIN, UNSPECIFIED 08/09/2018 LI DO, SANNA L Ot E04.2 NONTOXIC MULTINODULAR GOITER 08/09/2018 LI DO, SANNA L Ot E04.2 NONTOXIC MULTINODULAR GOITER 08/14/2018 LI DO, SANNA L Ot E04.2 NONTOXIC MULTINODULAR GOITER 08/14/2018 BAIMA, DI L DIRECTOR OF LITIGATION Ot E05.90 THYROTOXICOSIS, UNSP WITHOUT THYROTOXIC 08/14/2018 BAIMA, DI L DIRECTOR OF LITIGATION Ot G47.33 OBSTRUCTIVE SLEEP APNEA (ADULT) (PEDIATR 08/14/2018 BAIMA, DI L DIRECTOR OF LITIGATION Ot I 10 ESSENTIAL (PRIMARY) HYPERTENSION 08/14/2018 BAIMA, DI L DIRECTOR OF LITIGATION Ot I42.0 DILATED CARDIOMYOPATHY 08/14/2018 BAIMA, DI L DIRECTOR OF LITIGATION Ot I48.0 PAROXYSMAL ATRIAL FIBRILLATION 08/15/2018 LI DO, SANNA L Ot E04.2 NONTOXIC MULTINODULAR GOITER 08/27/2018 BAIMA, DI L DIRECTOR OF LITIGATION Ot E05.90 THYROTOXICOSIS, UNSP WITHOUT THYROTOXIC 08/27/2018 BAIMA, DI L DIRECTOR OF LITIGATION Ot G47.33 OBSTRUCTIVE SLEEP APNEA (ADULT) (PEDIATR 08/27/2018 BAIMA, DI L DIRECTOR OF LITIGATION Ot I 10 ESSENTIAL (PRIMARY) HYPERTENSION 08/27/2018 BAIMA, DI L DIRECTOR OF LITIGATION Ot I42.0 DILATED CARDIOMYOPATHY 08/27/2018 BAIMA, DI L DIRECTOR OF LITIGATION Ot I48.0 PAROXYSMAL ATRIAL FIBRILLATION 08/27/2018 BRETHREN DO, SANNA L Ot E04.2 NONTOXIC MULTINODULAR GOITER 09/26/2018 BRETHREN DO, SANNA L Ot E04.2 NONTOXIC MULTINODULAR GOITER 11/02/2018 CARVER PA, CONNIE M Ot 717 .2 DERANG POST MED MENISCUS 11/02/2018 MEHUL WATKINS, CONNIE Dahl Ot 719.46 JOINT PAIN-L/LEG 11/02/2018 CARROL ANDRADE DIRECTOR OF LITIGATION Ot M94.8X6 OTHER SPECIFIED DISORDERS OF [place]ARTIL[place], 11/02/2018 CARROL ANDRADE DIRECTOR OF LITIGATION Ot S46.011D STRAIN OF MUSC/TEND THE ROTATOR CUFF OF 11/02/2018 CARROL ANDRADE DIRECTOR OF LITIGATION Ot S83.241D OTH TEAR OF MEDIAL MENISCUS, CURRENT INJ 11/02/2018 CARROL ANDRADE DIRECTOR OF LITIGATION Ot X58.XXXD EXPOSURE TO OTHER SPECIFIED FACTORS, SUB 11/02/2018 CARROL ANDRADE DIRECTOR OF LITIGATION Ot Y99. 8 OTHER EXTERNAL CAUSE STATUS 11/02/2018 DI MOFFETT DIRECTOR OF LITIGATION Ot I48.91 UNSPECIFIED ATRIAL FIBRILLATION 11/02/2018 RENUKA BAKER APRN Ot J30.2 OTHER SEASONAL ALLERGIC RHINITIS 11/02/2018 RENUKA BAKER APRN Ot R06.00 DYSPNEA, UNSPECIFIED 11/02/2018 RENUKA BAKER APRN Ot Z87.891 PERSONAL HISTORY OF NICOTINE DEPENDENCE 11/02/2018 Ot E04.2 NONT OXIC MULTINODULAR GOITER 11/02/2018 SANNA LI DO Ot E04.2 NONTOXIC MULTINODULAR GOITER 11/02/2018 STEF ROCHAISON Emile Ot E04.2 NONTOXIC MULTINODULAR GOITER 11/02/2018 DI MOFFETT DIRECTOR OF LITIGATION Ot E05.90 THYROTOXICOSIS, UNSP WITHOUT THYROTOXIC 11/02/2018 DI MOFFETT DIRECTOR OF LITIGATION Ot G47.33 OBSTRUCTIVE SLEEP APNEA (ADULT) (PEDIATR 11/02/2018 DI MOFFETT DIRECTOR OF LITIGATION Ot I 10 ESSENTIAL (PRIMARY) HYPERTENSION 11/02/2018 DI MOFFETT DIRECTOR OF LITIGATION Ot I42.0 DILATED CARDIOMYOPATHY 11/02/2018 DI MOFFETT DIRECTOR OF LITIGATION Ot I48.0 PAROXYSMAL ATRIAL FIBRILLATION 11/02/2018 STEF LI DOISON L Ot E04.2 NONTOXIC MULTINODULAR GOITER 11/02/2018 STEF LI DOISON L Ot E04.2 NONTOXIC MULTINODULAR GOITER 11/06/2018 STEF LI DOISON L Ot E04.2 NONTOXIC MULTINODULAR GOITER 11/09/2018 KERMIT BROWN [facility], ALI FACP CCDS Ot I48.0 PAROXYSMAL ATRIAL FIBRILLATION 11/09/2018 KERMIT BROWN [facility], ALI FACP CCDS Ot I48.0 PAROXYSMAL ATRIAL FIBRILLATION 11/15/2018 KERMIT BROWN [facility], ALI FACP CCDS Ot I48.0 PAROXYSMAL ATRIAL FIBRILLATION 11/22/2018 SANNA LI DO Ot E04.2 NONTOXIC MULTINODULAR GOITER 11/29/2018 KERMIT BROWN [facility], ALI FACP CCDS Ot I48.91 UNSPECIFIED ATRIAL FIBRILLATION 12/12/2018 KERMIT BROWN [facility], ALI FACP CCDS Ot G47.30 SLEEP APNEA, UNSPECIFIED 12/12/2018 KERMIT BROWN [facility], ALI FACP CCDS Ot I48.91 UNSPECIFIED ATRIAL FIBRILLATION 12/12/2018 KERMIT BROWN [facility], ALI FACP CCDS Ot I95.0 IDIOPATHIC HYPOTENSION 12/12/2018 KERMIT BROWN [facility], ALI FACP CCDS Ot J98.4 OTHER DISORDERS OF LUNG 12/17/2018 KERMIT BROWN [facility], ALI FACP CCDS Ot I48.91 UNSPECIFIED ATRIAL FIBRILLATION 12/27/2018 DI MOFFETT DIRECTOR OF LITIGATION Ot G47.33 OBSTRUCTIVE SLEEP APNEA (ADULT) (PEDIATR 12/27/2018 BAIDI ROSE L DIRECTOR OF LITIGATION Ot I11.0 HYPERTENSIVE HEART DISEASE WITH HEART FA 12/27/2018 BAIMADI L DIRECTOR OF LITIGATION Ot I42.0 DILATED CARDIOMYOPATHY 12/27/2018 DI MOFFETT L DIRECTOR OF LITIGATION Ot I48.0 PAROXYSMAL ATRIAL FIBRILLATION 12/27/2018 DI MOFFETT L DIRECTOR OF LITIGATION Ot I48.91 UNSPECIFIED ATRIAL FIBRILLATION 12/27/2018 GEOVANNAROSEDI L DIRECTOR OF LITIGATION Ot 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 12/27/2018 MARQUEZ MOFFETTHER L DIRECTOR OF LITIGATION Ot I51.89 OTHER ILL-DEFINED HEART DISEASES 12/31/2018 DI MOFFETT L DIRECTOR OF LITIGATION Ot G47.33 OBSTRUCTIVE SLEEP APNEA (ADULT) (PEDIATR 12/31/2018 GEOVANNAROSEDI L DIRECTOR OF LITIGATION Ot I11.0 HYPERTENSIVE HEART DISEASE WITH HEART FA 12/31/2018 DI MOFFETT L DIRECTOR OF LITIGATION Ot I42.0 DILATED CARDIOMYOPATHY 12/31/2018 DI MOFFETT L DIRECTOR OF LITIGATION Ot I48.0 PAROXYSMAL ATRIAL FIBRILLATION 12/31/2018 GEOVANNADI ROSE L DIRECTOR OF LITIGATION Ot I48.91 UNSPECIFIED ATRIAL FIBRILLATION 12/31/2018 GEOVANNAROSE DI L DIRECTOR OF LITIGATION Ot 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 12/31/2018 BAIMARQUEZ ROSEHER L DIRECTOR OF LITIGATION Ot I51.89 OTHER ILL-DEFINED HEART DISEASES 01/02/2019 KERMIT WALTON, ALI FACP CCDS Ot G47.30 SLEEP APNEA, UNSPECIFIED 01/02/2019 KERMIT BROWN FACC, ALI FACP CCDS Ot I48.91 UNSPECIFIED ATRIAL FIBRILLATION 01/02/2019 KERMIT BROWN FACC, ALI FACP CCDS Ot I95.0 IDIOPATHIC HYPOTENSION 01/02/2019 KERMIT BROWN FACC, ALI FACP CCDS Ot J98.4 OTHER DISORDERS OF LUNG 01/16/2019 BETINA DI L DIRECTOR OF LITIGATION Ot G47.33 OBSTRUCTIVE SLEEP APNEA (ADULT) (PEDIATR 01/16/2019 GEOVANNAROSE DI L DIRECTOR OF LITIGATION Ot I11.0 HYPERTENSIVE HEART DISEASE WITH HEART FA 01/16/2019 DI MOFFETT L DIRECTOR OF LITIGATION Ot I42.0 DILATED CARDIOMYOPATHY 01/16/2019 BETINA DI L DIRECTOR OF LITIGATION Ot I48.0 PAROXYSMAL ATRIAL FIBRILLATION 01/16/2019 BETINA DI L DIRECTOR OF LITIGATION Ot I48.91 UNSPECIFIED ATRIAL FIBRILLATION 01/16/2019 GEOVANNAROSE DI L DIRECTOR OF LITIGATION Ot 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 01/16/2019 GEOVANNAROSE DI L DIRECTOR OF LITIGATION Ot I51.89 OTHER ILL-DEFINED HEART DISEASES 02/27/2019 SANNA LI DO L Ot E04.2 NONTOXIC MULTINODULAR GOITER 03/19/2019 JEN ROCHA SANNA L Ot E04.2 NONTOXIC MULTINODULAR GOITER 03/24/2019 LEISURE, NICOLEA W 487 INFLUENZA 03/24/2019 LEISURE, KRANTHI W J11.1 INFLUENZA DUE TO UNIDENTIFIED INFLUENZA VIRUS WITH OTHER RESPIRATORY MANIFESTATIONS 03/24/2019 LEISURE, NICOLEA W 487 INFLUENZA 03/24/2019 LEISURE, KRANTHI W J11.1 INFLUENZA DUE TO UNIDENTIFIED INFLUENZA VIRUS WITH OTHER RESPIRATORY MANIFESTATIONS 03/24/2019 LEISURE, KRANTHI W 487 INFLUENZA 03/24/2019 LEISURE, KRANTHI W 487.1 INFLUENZA WITH OTHER RESPIRATORY MANIFESTATIONS 03/24/2019 LEISURE, KRANTHI Ramirez J10.1 FLU DUE TO OTH IDENT INFLUENZA VIRUS W OTH RESP MANIFEST 03/24/2019 LEISURE, KRANTHI W J11.1 INFLUENZA DUE TO UNIDENTIFIED INFLUENZA VIRUS WITH OTHER RESPIRATORY MANIFESTATIONS 03/28/2019 DIANA ROCHA NICOLA Ot E05.90 THYROTOXICOSIS, UNSP WITHOUT THYROTOXIC 03/28/2019 DIANA DO NICOLA Ot E66.9 OBESITY, UNSPECIFIED 03/28/2019 DIANA DO NICOAL Ot G47.33 OBSTRUCTIVE SLEEP APNEA (ADULT) (PEDIATR 03/28/2019 ORTIZ DO, NICOLA Ot I25.10 ATHSCL HEART DISEASE OF [place] CORONARY 03/28/2019 DIANA DO NICOLA Ot I48.20 CHRONIC ATRIAL FIBRILLATION, UNSPECIFIED 03/28/2019 DIANA ROCHA NICOLA Ot J10.01 FLU DUE TO OTH IDENT FLU VIRUS W SAME OT 03/28/2019 DIANA ROCHA NICOLA Ot J12.89 OTHER VIRAL PNEUMONIA 03/28/2019 DIANA ROCHA NICOLA Ot J45.90 9 UNSPECIFIED ASTHMA, UNCOMPLICATED 03/28/2019 DIANA ROCHA NICOLA Ot J96.02 ACUTE RESPIRATORY FAILURE WITH HYPERCAPN 03/28/2019 DIANA ROCHA NICOLA Ot M19.91 PRIMARY OSTEOARTHRITIS, UNSPECIFIED SITE 03/28/2019 DIANA ROCHA NICOLA Ot Z68.42 BODY MASS INDEX (BMI) 45.0-49.9, ADULT 03/28/2019 DIANA ROCHA NICOLA Ot Z79.01 GROUP HOME (CURRENT) USE OF ANTICOAGULANT 03/28/2019 DIANA ROCHA NICOLA Ot Z79.82 GROUP HOME (CURRENT) USE OF ASPIRIN 03/28/2019 DIANA ROCHA NICOLA Ot Z85.51 PERSONAL HISTORY OF MALIGNANT NEOPLASM O 03/28/2019 DIANA ROCHA NICOLA Ot Z87.89 1 PERSONAL HISTORY OF NICOTINE DEPENDENCE 03/28/2019 DIANA ROCHA NICOLA Ot E05.90 THYROTOXICOSIS, UNSP WITHOUT THYROTOXIC 03/28/2019 DIANA ROCHA NICOLA Ot E66.9 OBESITY, UNSPECIFIED 03/28/2019 DIANA ROCHA NICOLA Ot G47.33 OBSTRUCTIVE SLEEP APNEA (ADULT) (PEDIATR 03/28/2019 ORTIZ DO, NICOLA Ot I25.10 ATHSCL HEART DISEASE OF [place] CORONARY 03/28/2019 DIANA DO, NICOLA Ot I48.20 CHRONIC ATRIAL FIBRILLATION, UNSPECIFIED 03/28/2019 ORTIZ DO, NICOLA Ot J10.01 FLU DUE TO OTH IDENT FLU VIRUS W SAME OT 03/28/2019 ORTIZ DO NICOLA Ot J12.89 OTHER VIRAL PNEUMONIA 03/28/2019 ORTIZ DO, NICOLA Ot J45.90 9 UNSPECIFIED ASTHMA, UNCOMPLICATED 03/28/2019 OTRIZ DO, NICOLA Ot J96.02 ACUTE RESPIRATORY FAILURE WITH HYPERCAPN 03/28/2019 ORTIZ DO NICOLA Ot M19.91 PRIMARY OSTEOARTHRITIS, UNSPECIFIED SITE 03/28/2019 ORTIZ DO NICOLA Ot Z68.42 BODY MASS INDEX (BMI) 45.0-49.9, ADULT 03/28/2019 DIANA ROCHA NICOLA Ot 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 03/28/2019 DIANA ROCHA NICOLA Ot Z79.82 GROUP HOME (CURRENT) USE OF ASPIRIN 03/28/2019 DIANA ROCHA NICOLA Ot Z85.51 PERSONAL HISTORY OF MALIGNANT NEOPLASM O 03/28/2019 DIANA ROCHA NICOLA Ot Z87.89 1 PERSONAL HISTORY OF NICOTINE DEPENDENCE 03/28/2019 DIANA ROCHA, NICOLA Ot E05.90 THYROTOXICOSIS, UNSP WITHOUT THYROTOXIC 03/28/2019 DIANA ROCHA NICOLA Ot E66.9 OBESITY, UNSPECIFIED 03/28/2019 DIANA ROCHA NICOLA Ot G47.33 OBSTRUCTIVE SLEEP APNEA (ADULT) (PEDIATR 03/28/2019 DIANA ROCHA NICOLA Ot I25.10 ATHSCL HEART DISEASE OF [place] CORONARY 03/28/2019 DIANA ROCHA NICOLA Ot I48.20 CHRONIC ATRIAL FIBRILLATION, UNSPECIFIED 03/28/2019 ORTIZ DO NICOLA Ot J10.01 FLU DUE TO OTH IDENT FLU VIRUS W SAME OT 03/28/2019 ORTIZ DO, NICOLA Ot J12.89 OTHER VIRAL PNEUMONIA 03/28/2019 ORTIZ DO NICOLA Ot J45.90 9 UNSPECIFIED ASTHMA, UNCOMPLICATED 03/28/2019 ORTIZ DO, NICOLA Ot J96.02 ACUTE RESPIRATORY FAILURE WITH HYPERCAPN 03/28/2019 ORTIZ DO NICOLA Ot M19.91 PRIMARY OSTEOARTHRITIS, UNSPECIFIED SITE 03/28/2019 DIANA ROCHA NICOLA Ot Z68.42 BODY MASS INDEX (BMI) 45.0-49.9, ADULT 03/28/2019 NICOLA ORTIZ DO Ot Z79.01 GROUP HOME (CURRENT) USE OF ANTICOAGULANT 03/28/2019 IRMA ORTIZ DOI Ot Z79.82 GROUP HOME (CURRENT) USE OF ASPIRIN 03/28/2019 DIANA ROCHA NICOLA Ot Z85.51 PERSONAL HISTORY OF MALIGNANT NEOPLASM O 03/28/2019 IRMA ORTIZ DOI Ot Z87.89 1 PERSONAL HISTORY OF NICOTINE DEPENDENCE 03/30/2019 DIANA ROCHA NICOLA Ot E05.90 THYROTOXICOSIS, UNSP WITHOUT THYROTOXIC 03/30/2019 DIANA ROCHA NICOLA Ot E66.9 OBESITY, UNSPECIFIED 03/30/2019 IRMA ORTIZ DOI Ot G47.33 OBSTRUCTIVE SLEEP APNEA (ADULT) (PEDIATR 03/30/2019 IRMA ORTIZ DOI Ot I25.10 ATHSCL HEART DISEASE OF [place] CORONARY 03/30/2019 DIANA ROCHA NICOLA Ot I48.20 CHRONIC ATRIAL FIBRILLATION, UNSPECIFIED 03/30/2019 DIANA ROCHA NICOLA Ot J10.01 FLU DUE TO OT IDENT FLU VIRUS W SAME OT 03/30/2019 IRMA ORTIZ DOI Ot J12.89 OTHER VIRAL PNEUMONIA 03/30/2019 IRMA ORTIZ DOI Ot J45.90 9 UNSPECIFIED ASTHMA, UNCOMPLICATED 03/30/2019 IRMA ORTIZ DOI Ot J96.02 ACUTE RESPIRATORY FAILURE WITH HYPERCAPN 03/30/2019 IRMA ORTIZ DOI Ot M19.91 PRIMARY OSTEOARTHRITIS, UNSPECIFIED SITE 03/30/2019 IRMA ORTIZ DOI Ot Z68.42 BODY MASS INDEX (BMI) 45.0-49.9, ADULT 03/30/2019 DIANA ROCHA NICOLA Ot Z79.01 GROUP HOME (CURRENT) USE OF ANTICOAGULANT 03/30/2019 DIANA ROCHA NICOLA Ot 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 03/30/2019 IRMA ORTIZ DOI Ot Z85.51 PERSONAL HISTORY OF MALIGNANT NEOPLASM O 03/30/2019 IRMA ORTIZ DOI Ot Z87.89 1 PERSONAL HISTORY OF NICOTINE DEPENDENCE 03/30/2019 DIANA ROCHA NICOLA Ot E05.90 THYROTOXICOSIS, UNSP WITHOUT THYROTOXIC 03/30/2019 DIANA ROCHA NICOLA Ot E66.9 OBESITY, UNSPECIFIED 03/30/2019 DIANA DO NICOLA Ot G47.33 OBSTRUCTIVE SLEEP APNEA (ADULT) (PEDIATR 03/30/2019 DIANA ROCHA, NICOLA Ot I25.10 ATHSCL HEART DISEASE OF [place] CORONARY 03/30/2019 DIANA ROCHA NICOLA Ot I48.20 CHRONIC ATRIAL FIBRILLATION, UNSPECIFIED 03/30/2019 DIANA ROCHA NICOLA Ot J10.01 FLU DUE TO OTH IDENT FLU VIRUS W SAME OT 03/30/2019 DIANA ROCHA NICOLA Ot J12.89 OTHER VIRAL PNEUMONIA 03/30/2019 DIANA DO NICOLA Ot J45.90 9 UNSPECIFIED ASTHMA, UNCOMPLICATED 03/30/2019 DIANA DO, NICOLA Ot J96.02 ACUTE RESPIRATORY FAILURE WITH HYPERCAPN 03/30/2019 DIANA ROCHA NICOLA Ot M19.91 PRIMARY OSTEOARTHRITIS, UNSPECIFIED SITE 03/30/2019 DIANA ROCHA NICOLA Ot Z68.42 BODY MASS INDEX (BMI) 45.0-49.9, ADULT 03/30/2019 DIANA ROCHA NICOLA Ot 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 03/30/2019 DIANA ROCHA NICOLA Ot Z79.82 GROUP HOME (CURRENT) USE OF ASPIRIN 03/30/2019 DIANA ROCHA NICOLA Ot Z85.51 PERSONAL HISTORY OF MALIGNANT NEOPLASM O 03/30/2019 DIANA ROCHA NICOLA Ot Z87.89 1 PERSONAL HISTORY OF NICOTINE DEPENDENCE 03/31/2019 DIANA ROCHA NICOLA Ot E05.90 THYROTOXICOSIS, UNSP WITHOUT THYROTOXIC 03/31/2019 DIANA ROCHA NICOLA Ot E66.9 OBESITY, UNSPECIFIED 03/31/2019 DIANA ROCHA NICOLA Ot G47.33 OBSTRUCTIVE SLEEP APNEA (ADULT) (PEDIATR 03/31/2019 DIANA ROCHA NICOLA Ot I25.10 ATHSCL HEART DISEASE OF [place] CORONARY 03/31/2019 DIANA ROCHA NICOLA Ot I48.20 CHRONIC ATRIAL FIBRILLATION, UNSPECIFIED 03/31/2019 DIANA ROCHA NICOLA Ot J10.01 FLU DUE TO OTH IDENT FLU VIRUS W SAME OT 03/31/2019 DIANA DO NICOLA Ot J12.89 OTHER VIRAL PNEUMONIA 03/31/2019 DIANA ROCHA NICOLA Ot J45.90 9 UNSPECIFIED ASTHMA, UNCOMPLICATED 03/31/2019 DIANA ROCHA NICOLA Ot J96.02 ACUTE RESPIRATORY FAILURE WITH HYPERCAPN 03/31/2019 IRMA ORTIZ DOI Ot M19.91 PRIMARY OSTEOARTHRITIS, UNSPECIFIED SITE 03/31/2019 IRMA ORTIZ DOI Ot Z68.42 BODY MASS INDEX (BMI) 45.0-49.9, ADULT 03/31/2019 DIANA ROCHA NICOLA Ot Z79.01 GROUP HOME (CURRENT) USE OF ANTICOAGULANT 03/31/2019 IRMA ORTIZ DOI Ot Z79.82 GROUP HOME (CURRENT) USE OF ASPIRIN 03/31/2019 DIANA ROCHA NICOLA Ot Z85.51 PERSONAL HISTORY OF MALIGNANT NEOPLASM O 03/31/2019 DIANA ROCHA NICOLA Ot Z87.89 1 PERSONAL HISTORY OF NICOTINE DEPENDENCE 03/31/2019 IRMA ORTIZ DOI Ot E05.90 THYROTOXICOSIS, UNSP WITHOUT THYROTOXIC 03/31/2019 DIANA ROCHA NICOLA Ot E66.9 OBESITY, UNSPECIFIED 03/31/2019 DIANA ROCHA NICOLA Ot G47.33 OBSTRUCTIVE SLEEP APNEA (ADULT) (PEDIATR 03/31/2019 IRMA ORTIZ DOI Ot I25.10 ATHSCL HEART DISEASE OF [place] CORONARY 03/31/2019 IRMA ORTIZ DOI Ot I48.20 CHRONIC ATRIAL FIBRILLATION, UNSPECIFIED 03/31/2019 IRMA ORTIZ DOI Ot J10.01 FLU DUE TO OTH IDENT FLU VIRUS W SAME OT 03/31/2019 DIANA ROCHA NICOLA Ot J12.89 OTHER VIRAL PNEUMONIA 03/31/2019 DIANA ROCHA NICOLA Ot J45.90 9 UNSPECIFIED ASTHMA, UNCOMPLICATED 03/31/2019 IRMA ORTIZ DOI Ot J96.02 ACUTE RESPIRATORY FAILURE WITH HYPERCAPN 03/31/2019 NICOLA ORTIZ DO Ot M19.91 PRIMARY OSTEOARTHRITIS, UNSPECIFIED SITE 03/31/2019 DIANA ROCHA NICOLA Ot Z68.42 BODY MASS INDEX (BMI) 45.0-49.9, ADULT 03/31/2019 DIANA ROCHA NICOLA Ot 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 03/31/2019 DIANA ROCHA NICOLA Ot Z79.82 GROUP HOME (CURRENT) USE OF ASPIRIN 03/31/2019 DIANA ROCHA NICOLA Ot Z85.51 PERSONAL HISTORY OF MALIGNANT NEOPLASM O 03/31/2019 IRMA ORTIZ DOI Ot Z87.89 1 PERSONAL HISTORY OF NICOTINE DEPENDENCE 03/31/2019 DIANA ROCHA NICOLA Ot E05.90 THYROTOXICOSIS, UNSP WITHOUT THYROTOXIC 03/31/2019 DIANA ROCHA NICOLA Ot E66.9 OBESITY, UNSPECIFIED 03/31/2019 DIANA ROCHA NICOLA Ot G47.33 OBSTRUCTIVE SLEEP APNEA (ADULT) (PEDIATR 03/31/2019 ORTIZ DO, NICOLA Ot I25.10 ATHSCL HEART DISEASE OF [place] CORONARY 03/31/2019 DIANA DO NICOLA Ot I48.20 CHRONIC ATRIAL FIBRILLATION, UNSPECIFIED 03/31/2019 DIANA DO NICOLA Ot J10.01 FLU DUE TO OTH IDENT FLU VIRUS W SAME OT 03/31/2019 DIANA ROCHA NICOLA Ot J12.89 OTHER VIRAL PNEUMONIA 03/31/2019 IRMA ORTIZ DOI Ot J45.90 9 UNSPECIFIED ASTHMA, UNCOMPLICATED 03/31/2019 DIANA ROCHA NICOLA Ot J96.02 ACUTE RESPIRATORY FAILURE WITH HYPERCAPN 03/31/2019 IRMA ORTIZ DOI Ot M19.91 PRIMARY OSTEOARTHRITIS, UNSPECIFIED SITE 03/31/2019 DIANA ROCHA NICOLA Ot Z68.42 BODY MASS INDEX (BMI) 45.0-49.9, ADULT 03/31/2019 DIANA ROCHA NICOLA Ot Z79.01 GROUP HOME (CURRENT) USE OF ANTICOAGULANT 03/31/2019 DIANA ROCHA NICOLA Ot Z79.82 GROUP HOME (CURRENT) USE OF ASPIRIN 03/31/2019 DIANA ROCHA NICOLA Ot Z85.51 PERSONAL HISTORY OF MALIGNANT NEOPLASM O 03/31/2019 DIANA ROCHA NICOLA Ot Z87.89 1 PERSONAL HISTORY OF NICOTINE DEPENDENCE 04/01/2019 DIANA ROCHA NICOLA Ot E05.90 THYROTOXICOSIS, UNSP WITHOUT THYROTOXIC 04/01/2019 DIANA ROCHA NICOLA Ot E66.9 OBESITY, UNSPECIFIED 04/01/2019 DIANA ROCHA NICOLA Ot G47.33 OBSTRUCTIVE SLEEP APNEA (ADULT) (PEDIATR 04/01/2019 DIANA DO, NICOLA Ot I25.10 ATHSCL HEART DISEASE OF [place] CORONARY 04/01/2019 DIANA ROCHA NICOLA Ot I48.20 CHRONIC ATRIAL FIBRILLATION, UNSPECIFIED 04/01/2019 DIANA ROCHA NICOLA Ot J10.01 FLU DUE TO OTH IDENT FLU VIRUS W SAME OT 04/01/2019 ORTIZ DO, NICOLA Ot J12.89 OTHER VIRAL PNEUMONIA 04/01/2019 DIANA ROCHA, NICOLA Ot J45.90 9 UNSPECIFIED ASTHMA, UNCOMPLICATED 04/01/2019 DIANA ROCHA, NICOLA Ot J96.02 ACUTE RESPIRATORY FAILURE WITH HYPERCAPN 04/01/2019 DIANA ROCHA, NICOLA Ot M19.91 PRIMARY OSTEOARTHRITIS, UNSPECIFIED SITE 04/01/2019 DIANA ROCHA, NICOLA Ot Z68.42 BODY MASS INDEX (BMI) 45.0-49.9, ADULT 04/01/2019 DIANA ROCHA NICOLA Ot Z79.01 GROUP HOME (CURRENT) USE OF ANTICOAGULANT 04/01/2019 ORTIZ DO, NICOLA Ot Z79.82 GROUP HOME (CURRENT) USE OF ASPIRIN 04/01/2019 DIANA ROCHA, NICOLA Ot Z85.51 PERSONAL HISTORY OF MALIGNANT NEOPLASM O 04/01/2019 DIANA ROCHA NICOLA Ot Z87.89 1 PERSONAL HISTORY OF NICOTINE DEPENDENCE 04/01/2019 DIANA ROCHA, NICOLA Ot E05.90 THYROTOXICOSIS, UNSP WITHOUT THYROTOXIC 04/01/2019 ORTIZ DO, NICOLA Ot E66.9 OBESITY, UNSPECIFIED 04/01/2019 ORTIZ DO, NICOLA Ot E87.2 ACIDOSIS 04/01/2019 DIANA ROCHA, NICOLA Ot E87.5 HYPERKALEMIA 04/01/2019 DIANA ROCHA, NICOLA Ot F29 UNSP PSYCHOSIS NOT DUE TO A SUBSTANCE OR 04/01/2019 ORTIZ DO, NICOLA Ot F41.9 ANXIETY DISORDER, UNSPECIFIED 04/01/2019 DIANA ROCHA, NICOLA Ot G47.33 OBSTRUCTIVE SLEEP APNEA (ADULT) (PEDIATR 04/01/2019 ORTIZ DO, NICOLA Ot I25.10 ATHSCL HEART DISEASE OF [place] CORONARY 04/01/2019 ORTIZ DO, NICOLA Ot I42.9 CARDIOMYOPATHY, UNSPECIFIED 04/01/2019 ORTIZ DO, NICOLA Ot I48.20 CHRONIC ATRIAL FIBRILLATION, UNSPECIFIED 04/01/2019 ORTIZ DO, NICOLA Ot 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 04/01/2019 ORTIZ DO, NICOLA Ot J10.01 FLU DUE TO OTH IDENT FLU VIRUS W SAME OT 04/01/2019 ORTIZ DO, NICOLA Ot J44.1 CHRONIC OBSTRUCTIVE PULMONARY DISEASE W 04/01/2019 NICOLA ORTIZ DO Ot J45.90 9 UNSPECIFIED ASTHMA, UNCOMPLICATED 04/01/2019 NICOLA ORTIZ DO Ot J96.02 ACUTE RESPIRATORY FAILURE WITH HYPERCAPN 04/01/2019 NICOLA ORTIZ DO Ot M19.91 PRIMARY OSTEOARTHRITIS, UNSPECIFIED SITE 04/01/2019 NICOLA ORTIZ DO Ot M75.10 1 UNSP ROTATR-CUFF TEAR/RUPTR OF RIGHT SANTY 04/01/2019 NICOLA ORTIZ DO Ot Z68.42 BODY MASS INDEX (BMI) 45.0-49.9, ADULT 04/01/2019 NICOLA ORTIZ DO Ot 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 04/01/2019 NICOLA ORTIZ DO Ot Z79.82 GROUP HOME (CURRENT) USE OF ASPIRIN 04/01/2019 NICOLA ORTIZ DO Ot Z85.51 PERSONAL HISTORY OF MALIGNANT NEOPLASM O 04/01/2019 NICOLA ORTIZ DO Ot Z87.89 1 PERSONAL HISTORY OF NICOTINE DEPENDENCE 04/01/2019 NICOLA ORTIZ DO Ot Z91.19 PATIENT'S NONCOMPLIANCE W [facility] 04/17/2019 DI MOFFETT DIRECTOR OF LITIGATION Ot G47.33 OBSTRUCTIVE SLEEP APNEA (ADULT) (PEDIATR 04/17/2019 DI MOFFETT DIRECTOR OF LITIGATION Ot I 10 ESSENTIAL (PRIMARY) HYPERTENSION 04/17/2019 DI MOFFETT DIRECTOR OF LITIGATION Ot I42.0 DILATED CARDIOMYOPATHY 04/17/2019 BAIDI ROSE DIRECTOR OF LITIGATION Ot I48.0 PAROXYSMAL ATRIAL FIBRILLATION 04/18/2019 DI MOFFETT DIRECTOR OF LITIGATION Ot G47.33 OBSTRUCTIVE SLEEP APNEA (ADULT) (PEDIATR 04/18/2019 DI MOFFETT DIRECTOR OF LITIGATION Ot I 10 ESSENTIAL (PRIMARY) HYPERTENSION 04/18/2019 DI MOFFETT DIRECTOR OF LITIGATION Ot I42.0 DILATED CARDIOMYOPATHY 04/18/2019 BAIDI ROSE DIRECTOR OF LITIGATION Ot I48.0 PAROXYSMAL ATRIAL FIBRILLATION Procedures Code Description Performed By Per formed On JOIN T INJECTION- LARGE JOINT (SPECIFY MEDCIN DESCRIPTION) 08/20 32042 MRI EXTREMITY JOINT, LOWER LEFT, W/O CONTRAST 10/07/2013 [id number] ME ASURE OF CARDIAC SAMPL PRESSURE, L H 02/23/2017 [id number] FL UOROSCOPY OF MULT COR ART USING L OSM 02/23/2017 [id number] FL UOROSCOPY OF LEFT HEART USING LOW OSMO 02/23/2017 [id number] FL UOROSCOPY OF THORACIC AORTA USING LOW 02/23/2017 Results Test Result Range Complete blood count (CBC) with automate d white blood cell (WBC) differential - 04/25/16 09:00 Blood leukocytes automated count (number/volume) 11.0 10*3/uL 4.3-11.0 Blood erythrocytes automated count (number/volume) 5.13 10*6/uL 4.35-5.85 Venous blood hemoglobin measurement (mass/volume) 15.4 g/dL 13.3-17.7 Blood hematocrit (volume fraction) 46 % 40-54 Automated erythrocyte mean corpuscular volume 89 [ foz_us] 80-99 Automated erythrocyte mean corpuscular h emoglobin (mass per erythrocyte) 30 pg 25-34 Automated erythrocyte mean corpuscular h emoglobin concentration measurement (mass/volume) 34 g/dL 32-36 Automated erythrocyte distribution width ratio 13. 0 % 10.0- 14.5 Automated blood platelet count (count/volume) 283 10*3/uL [...] 10*3 1.0-4.0 Blood monocytes automated count (number/volume) 0. 9 10*3 0.0-1.0 Automated eosinophil count 0.1 10*3/uL 0 .0-0.3 Automated blood basophil count (count/volume) 0.0 10*3/uL 0.0-0.1 Blood lactic acid measurement (moles/vol ume) - 04/25/16 09:00 Blood lactic acid measurement (moles/volume) 0.76 mmol/L 0.50-2.00 PT panel in platelet poor plasma by coag ulation assay - 04/25/16 09:00 Prothrombin time (PT) in platelet poor plasma by coagu lation assay 13.5 s 12.2-14.7 INR in platelet poor plasma or blood by coagulation as say 1.1 0.8-1.4 Activated partial thromboplastin time (a PTT) in platelet poor plasma bycoagulation assay - 04/25/16 09:00 Activated partial thromboplastin time (a PTT) in platelet poor plasma bycoagulation assay 30 s 24-35 Influenza virus A and B antigen detectio n - 04/25/16 09:00 FLU RESULT NEGATIVE FOR INFLUENZA A AND B ANTIGENS BY IA [facility] Comprehensive metabolic panel - 04/25/16 09:00 Serum or plasma sodium measurement (moles/volume) 136 mmol/L 135-145 Serum or plasma potassium measurement (moles/volume) 4.2 mmol/L 3.6-5.0 Serum or plasma chloride measurement (moles/volume) 101 mmol/L 98-107 Carbon dioxide 24 mmol/L 21-32 Serum or plasma anion gap determination (moles/volume) 11 mmol/L 5-14 Serum or plasma urea nitrogen measurement (mass/volume ) 10 mg/dL 7-18 Serum or plasma creatinine measurement (mass/volume) 0.87 mg/dL 0.60-1.30 Serum or plasma urea nitrogen/creatinine mass ratio 11 G Serum or plasma creatinine measurement w ith calculation of estimated glomerular filtration rate > [facility] Serum or plasma glucose measurement (mass/volume) 121 mg/dL 70-105 Serum or plasma calcium measurement (mass/volume) 9.6 mg/dL 8.5-10.1 Serum or plasma total bilirubin measurement (mass/volu me) 1.0 mg/dL 0.1-1.0 Serum or plasma alkaline phosphatase darren surement (enzymatic activity/volume) 84 U/L 40-136 Serum or plasma aspartate aminotransfera se measurement (enzymatic activity/volume) 18 U/L 5-34 Serum or plasma alanine aminotransferase measurement (enzymatic activity/volume) 25 U/L 0-55 Serum or plasma protein measurement (mass/volume) 7.4 g/dL 6.4-8.2 Serum or plasma albumin measurement (mass/volume) 4.2 g/dL 3.2-4.5 Serum or plasma C reactive protein measu rement (mass/volume) - 04/25/16 09:00 Serum or plasma C reactive protein measurement (mass/v olume) 6.18 mg/dL 0.00-0.50 Bacterial blood culture - 04/25/16 09:05 QUANTITY OF GROWTH Isolated NRG Bacterial blood culture [id number] NRG Bacterial blood culture - 04/25/16 09:34 Bacterial blood culture NG NRG Complete urinalysis with reflex to cultu re - 04/25/16 10:40 Urine color determination YELLOW NRG Urine clarity determination CLEAR NR G Urine pH measurement by test strip 6 5-9 Specific gravity of urine by test strip 1.015 1.016-1.022 Urine protein assay by test strip, semi-quantitative NEGATIVE NEGATIVE Urine glucose detection by automated test strip NE GATIVE NEGATIVE Erythrocytes detection in urine sediment by light micr oscopy 2+ NEGATIVE Urine ketones detection by automated test strip 1+ NEGATIVE Urine nitrite detection by test strip NEGATIVE NEGATIVE Urine total bilirubin detection by test strip NEGA TIVE NEGATIVE Urine urobilinogen measurement by automated test strip (mass/volume) NORMAL NORMAL Urine leukocyte esterase detection by dipstick NEG ATIVE NEGATIVE Automated urine sediment erythrocyte cou nt by microscopy (number/high power field) [HPF] NRG Automated urine sediment leukocyte count by microscopy (number/high power field) NONE NRG Bacteria detection in urine sediment by light microsco py NEGATIVE NRG Squamous epithelial cells detection in u rine sediment by light microscopy NONE NRG Crystals detection in urine sediment by light microsco py NONE NRG Casts detection in urine sediment by light microscopy NONE NRG Mucus detection in urine sediment by light microscopy SMALL NRG Complete urinalysis with reflex to culture NO NRG Complete blood count (CBC) with automate d white blood cell (WBC) differential - 02/22/17 01:15 Blood leukocytes automated count (number/volume) 8.3 10*3/uL 4.3-11.0 Blood erythrocytes automated count (number/volume) 5.17 10*6/uL 4.35-5.85 Venous blood hemoglobin measurement (mass/volume) 15.0 g/dL 13.3-17.7 Blood hematocrit (volume fraction) 47 % 40-54 Automated erythrocyte mean corpuscular volume 91 [ foz_us] 80-99 Automated erythrocyte mean corpuscular h emoglobin (mass per erythrocyte) 29 pg 25-34 Automated erythrocyte mean corpuscular h emoglobin concentration measurement (mass/volume) 32 g/dL 32-36 Automated erythrocyte distribution width ratio 12. 6 % 10.0- 14.5 Automated blood platelet count (count/volume) 337 10*3/uL [...] 10*3 1.0-4.0 Blood monocytes automated count (number/volume) 0. 7 10*3 0.0-1.0 Automated eosinophil count 0.2 10*3/uL 0 .0-0.3 Automated blood basophil count (count/volume) 0.1 10*3/uL 0.0-0.1 PT panel in platelet poor plasma by coag ulation assay - 02/22/17 01:15 Prothrombin time (PT) in platelet poor plasma by coagu lation assay 13.6 s 12.2-14.7 INR in platelet poor plasma or blood by coagulation as say 1.0 0.8-1.4 Activated partial thromboplastin time (a PTT) in platelet poor plasma bycoagulation assay - 02/22/17 01:15 Activated partial thromboplastin time (a PTT) in platelet poor plasma bycoagulation assay 30 s 24-35 Comprehensive metabolic panel - 02/22/17 01:15 Serum or plasma sodium measurement (moles/volume) 141 mmol/L 135-145 Serum or plasma potassium measurement (moles/volume) 4.1 mmol/L 3.6-5.0 Serum or plasma chloride measurement (moles/volume) 103 mmol/L 98-107 Carbon dioxide 25 mmol/L 21-32 Serum or plasma anion gap determination (moles/volume) 13 mmol/L 5-14 Serum or plasma urea nitrogen measurement (mass/volume ) 18 mg/dL 7-18 Serum or plasma creatinine measurement (mass/volume) 1.11 mg/dL 0.60-1.30 Serum or plasma urea nitrogen/creatinine mass ratio 16 NRG Serum or plasma creatinine measurement w ith calculation of estimated glomerular filtration rate > NRG Serum or plasma glucose measurement (mass/volume) 110 mg/dL 70-105 Serum or plasma calcium measurement (mass/volume) 9.5 mg/dL 8.5-10.1 Serum or plasma total bilirubin measurement (mass/volu me) 0.4 mg/dL 0.1-1.0 Serum or plasma alkaline phosphatase darren surement (enzymatic activity/volume) 80 U/L 40-136 Serum or plasma aspartate aminotransfera se measurement (enzymatic activity/volume) 22 U/L 5-34 Serum or plasma alanine aminotransferase measurement (enzymatic activity/volume) 37 U/L 0-55 Serum or plasma protein measurement (mass/volume) 7.5 g/dL 6.4-8.2 Serum or plasma albumin measurement (mass/volume) 4.0 g/dL 3.2-4.5 Magnesium - 02/22/17 01:15 Magnesium 2.1 mg/dL 1.8-2.4 Serum or plasma troponin i.cardiac measu rement (mass/volume) - 02/22/17 01:15 Serum or plasma troponin i.cardiac measurement (mass/v olume) < ng/mL <0.30 Myoglobin, serum - 02/22/17 01:15 Myoglobin, serum 37.5 ng/mL 10.0-92.0 Complete urinalysis with reflex to cultu re - 02/22/17 03:10 Urine color determination YELLOW NRG Urine clarity determination CLEAR NR G Urine pH measurement by test strip 6 5-9 Specific gravity of urine by test strip 1.015 1.016-1.022 Urine protein assay by test strip, semi-quantitative NEGATIVE NEGATIVE Urine glucose detection by automated test strip NE GATIVE NEGATIVE Erythrocytes detection in urine sediment by light micr oscopy 2+ NEGATIVE Urine ketones detection by automated test strip NE GATIVE NEGATIVE Urine nitrite detection by test strip NEGATIVE NEGATIVE Urine total bilirubin detection by test strip NEGA TIVE NEGATIVE Urine urobilinogen measurement by automated test strip (mass/volume) NORMAL NORMAL Urine leukocyte esterase detection by dipstick NEG ATIVE NEGATIVE Automated urine sediment erythrocyte cou nt by microscopy (number/high power field) [HPF] NRG Automated urine sediment leukocyte count by microscopy (number/high power field) NONE NRG Bacteria detection in urine sediment by light microsco py NEGATIVE NRG Squamous epithelial cells detection in u rine sediment by light microscopy RARE NRG Crystals detection in urine sediment by light microsco py NONE NRG Casts detection in urine sediment by light microscopy NONE NRG Mucus detection in urine sediment by light microscopy NEGATIVE NRG Complete urinalysis with reflex to culture NO NRG Methicillin resistant Staphylococcus aur eus (MRSA) screening culture - 02/22/17 03:10 Methicillin resistant Staphylococcus aureus (MRSA) scr eening culture NEG NRG Whole blood basic metabolic panel - 05/07 05:03 Serum or plasma sodium measurement (moles/volume) 140 mmol/L 135-145 Serum or plasma potassium measurement (moles/volume) 4.5 mmol/L 3.6-5.0 Serum or plasma chloride measurement (moles/volume) 107 mmol/L 98-107 Carbon dioxide 23 mmol/L 21-32 Serum or plasma anion gap determination (moles/volume) 10 mmol/L 5-14 Serum or plasma urea nitrogen measurement (mass/volume ) 15 mg/dL 7-18 Serum or plasma creatinine measurement (mass/volume) 0.85 mg/dL 0.60-1.30 Serum or plasma urea nitrogen/creatinine mass ratio 18 NRG Serum or plasma creatinine measurement w ith calculation of estimated glomerular filtration rate > NRG Serum or plasma glucose measurement (mass/volume) 102 mg/dL 70-105 Serum or plasma calcium measurement (mass/volume) 9.0 mg/dL 8.5-10.1 Serum or plasma phosphate measurement (m ass/volume) - 02/22/17 05:03 Serum or plasma phosphate measurement (mass/volume) 3.8 mg/dL 2.3-4.7 Magnesium - 02/22/17 05:03 Magnesium 2.1 mg/dL 1.8-2.4 Lipid 1996 panel - 02/22/17 05:03 Serum or plasma triglyceride measurement (mass/volume) 133 mg/dL <150 Serum or plasma cholesterol measurement (mass/volume) 167 mg/dL < 200 Serum or plasma cholesterol in HDL measurement (mass/v olume) 29 mg/dL 40-60 Cholesterol in LDL [mass/volume] in serum or plasma by direct assay 125 mg/dL 1-129 Serum or plasma cholesterol in VLDL measurement (mass/ volume) 27 mg/dL 5-40 Complete blood count (CBC) with automate d white blood cell (WBC) differential - 02/22/17 05:05 Blood leukocytes automated count (number/volume) 7.2 10*3/uL 4.3-11.0 Blood erythrocytes automated count (number/volume) 4.82 10*6/uL 4.35-5.85 Venous blood hemoglobin measurement (mass/volume) 14.2 g/dL 13.3-17.7 Blood hematocrit (volume fraction) 43 % 40-54 Automated erythrocyte mean corpuscular volume 90 [ foz_us] 80-99 Automated erythrocyte mean corpuscular h emoglobin (mass per erythrocyte) 30 pg 25-34 Automated erythrocyte mean corpuscular h emoglobin concentration measurement (mass/volume) 33 g/dL 32-36 Automated erythrocyte distribution width ratio 12. 5 % 10.0- 14.5 Automated blood platelet count (count/volume) 307 10*3/uL 130-400 Automated blood platelet mean volume measurement 10.1 [foz_us] 7.4-10.4 Automated blood neutrophils/100 leukocytes 72 % 42-75 Automated blood lymphocytes/100 leukocytes 18 % 12-44 Blood monocytes/100 leukocytes 8 % 0-12 Automated blood eosinophils/100 leukocytes 2 % 0-10 Automated blood basophils/100 leukocytes 1 % 0-10 Blood neutrophils automated count (number/volume) 5.2 10*3 1.8-7.8 Blood lymphocytes automated count (number/volume) 1.3 10*3 1.0-4.0 Blood monocytes automated count (number/volume) 0. 6 10*3 0.0-1.0 Automated eosinophil count 0.1 10*3/uL 0 .0-0.3 Automated blood basophil count (count/volume) 0.0 10*3/uL 0.0-0.1 Serum or plasma troponin i.cardiac measu rement (mass/volume) - 02/22/17 07:09 Serum or plasma troponin i.cardiac measurement (mass/v olume) 0.85 ng/mL <0.30 Serum or plasma troponin i.cardiac measu rement (mass/volume) - 02/22/17 13:10 Serum or plasma troponin i.cardiac measurement (mass/v olume) 1.63 ng/mL <0.30 Automated blood complete blood count (he mogram) panel - 02/23/17 04:55 Blood leukocytes automated count (number/volume) 5.7 10*3/uL 4.3-11.0 Blood erythrocytes automated count (number/volume) 4.75 10*6/uL 4.35-5.85 Venous blood hemoglobin measurement (mass/volume) 13.8 g/dL 13.3-17.7 Blood hematocrit (volume fraction) 44 % 40-54 Automated erythrocyte mean corpuscular volume 92 [ foz_us] 80-99 Automated erythrocyte mean corpuscular h emoglobin (mass per erythrocyte) 29 pg 25-34 Automated erythrocyte mean corpuscular h emoglobin concentration measurement (mass/volume) 32 g/dL 32-36 Automated erythrocyte distribution width ratio 12. 7 % 10.0- 14.5 Automated blood platelet count (count/volume) 275 10*3/uL 130-400 Automated blood platelet mean volume measurement 9.9 [foz_us] 7.4-10.4 PT panel in platelet poor plasma by coag ulation assay - 02/23/17 04:55 Prothrombin time (PT) in platelet poor plasma by coagu lation assay 14.3 s 12.2-14.7 INR in platelet poor plasma or blood by coagulation as say 1.1 0.8-1.4 Activated partial thromboplastin time (a PTT) in platelet poor plasma bycoagulation assay - 02/23/17 04:55 Activated partial thromboplastin time (a PTT) in platelet poor plasma bycoagulation assay 32 s 24-35 Whole blood basic metabolic panel - 06/07 04:55 Serum or plasma sodium measurement (moles/volume) 141 mmol/L 135-145 Serum or plasma potassium measurement (moles/volume) 4.6 mmol/L 3.6-5.0 Serum or plasma chloride measurement (moles/volume) 109 mmol/L 98-107 Carbon dioxide 24 mmol/L 21-32 Serum or plasma anion gap determination (moles/volume) 8 mmol/L 5-14 Serum or plasma urea nitrogen measurement (mass/volume ) 14 mg/dL 7-18 Serum or plasma creatinine measurement (mass/volume) 0.83 mg/dL 0.60-1.30 Serum or plasma urea nitrogen/creatinine mass ratio 17 NRG Serum or plasma creatinine measurement w ith calculation of estimated glomerular filtration rate > NRG Serum or plasma glucose measurement (mass/volume) 100 mg/dL 70-105 Serum or plasma calcium measurement (mass/volume) 8.7 mg/dL 8.5-10.1 Serum or plasma phosphate measurement (m ass/volume) - 02/23/17 04:55 Serum or plasma phosphate measurement (mass/volume) 3.7 mg/dL 2.3-4.7 Magnesium - 02/23/17 04:55 Magnesium 1.9 mg/dL 1.8-2.4 Lipid 1996 panel - 02/23/17 04:55 Serum or plasma triglyceride measurement (mass/volume) 143 mg/dL <150 Serum or plasma cholesterol measurement (mass/volume) 168 mg/dL < 200 Serum or plasma cholesterol in HDL measurement (mass/v olume) 27 mg/dL 40-60 Cholesterol in LDL [mass/volume] in serum or plasma by direct assay 123 mg/dL 1-129 Serum or plasma cholesterol in VLDL measurement (mass/ volume) 29 mg/dL 5-40 THYROID STIMULATING HORMONE - 02/23/17 0 4:55 THYROID STIMULATING HORMONE 0.02 u[iU]/mL 0.35-4.94 Serum or plasma thyroxine (T4) free gil urement (mass/volume) - 02/23/17 04:55 Serum or plasma thyroxine (T4) free measurement (mass/ volume) 0.83 ng/dL 0.70-1.48 Complete blood count (CBC) with automate d white blood cell (WBC) differential - 02/24/17 04:45 Blood leukocytes automated count (number/volume) 6.0 10*3/uL 4.3-11.0 Blood erythrocytes automated count (number/volume) 4.93 10*6/uL 4.35-5.85 Venous blood hemoglobin measurement (mass/volume) 14.4 g/dL 13.3-17.7 Blood hematocrit (volume fraction) 39 % 40-54 Automated erythrocyte mean corpuscular volume 80 [ foz_us] 80-99 Automated erythrocyte mean corpuscular h emoglobin (mass per erythrocyte) 29 pg 25-34 Automated erythrocyte mean corpuscular h emoglobin concentration measurement (mass/volume) 37 g/dL 32-36 Automated erythrocyte distribution width ratio 12. 3 % 10.0- 14.5 Automated blood platelet count (count/volume) 285 10*3/uL 130-400 Automated blood platelet mean volume measurement 9.3 [foz_us] 7.4-10.4 Automated blood neutrophils/100 leukocytes 64 % 42-75 Automated blood lymphocytes/100 leukocytes 22 % 12-44 Blood monocytes/100 leukocytes 9 % 0-12 Automated blood eosinophils/100 leukocytes 4 % 0-10 Automated blood basophils/100 leukocytes 1 % 0-10 Blood neutrophils automated count (number/volume) 3.9 10*3 1.8-7.8 Blood lymphocytes automated count (number/volume) 1.3 10*3 1.0-4.0 Blood monocytes automated count (number/volume) 0. 6 10*3 0.0-1.0 Automated eosinophil count 0.2 10*3/uL 0 .0-0.3 Automated blood basophil count (count/volume) 0.0 10*3/uL 0.0-0.1 Whole blood basic metabolic panel - 07/07 04:45 Serum or plasma sodium measurement (moles/volume) 140 mmol/L 135-145 Serum or plasma potassium measurement (moles/volume) 4.1 mmol/L 3.6-5.0 Serum or plasma chloride measurement (moles/volume) 103 mmol/L 98-107 Carbon dioxide 25 mmol/L 21-32 Serum or plasma anion gap determination (moles/volume) 12 mmol/L 5-14 Serum or plasma urea nitrogen measurement (mass/volume ) 13 mg/dL 7-18 Serum or plasma creatinine measurement (mass/volume) 0.92 mg/dL 0.60-1.30 Serum or plasma urea nitrogen/creatinine mass ratio 14 NRG Serum or plasma creatinine measurement w ith calculation of estimated glomerular filtration rate > NRG Serum or plasma glucose measurement (mass/volume) 91 mg/dL 70-105 Serum or plasma calcium measurement (mass/volume) 8.9 mg/dL 8.5-10.1 Magnesium - 02/24/17 04:45 Magnesium 1.9 mg/dL 1.8-2.4 Digoxin - 02/24/17 04:45 Digoxin < ng/mL 0.80-2.00 Whole blood basic metabolic panel - 11/07 10:55 Serum or plasma sodium measurement (moles/volume) 139 mmol/L 135-145 Serum or plasma potassium measurement (moles/volume) 4.2 mmol/L 3.6-5.0 Serum or plasma chloride measurement (moles/volume) 103 mmol/L 98-107 Carbon dioxide 25 mmol/L 21-32 Serum or plasma anion gap determination (moles/volume) 11 mmol/L 5-14 Serum or plasma urea nitrogen measurement (mass/volume ) 19 mg/dL 7-18 Serum or plasma creatinine measurement (mass/volume) 1.02 mg/dL 0.60-1.30 Serum or plasma urea nitrogen/creatinine mass ratio 19 NRG Serum or plasma creatinine measurement w ith calculation of estimated glomerular filtration rate > NRG Serum or plasma glucose measurement (mass/volume) 101 mg/dL 70-105 Serum or plasma calcium measurement (mass/volume) 10.0 mg/dL 8.5-10.1 Digoxin - 02/28/17 10:55 Digoxin 1.61 ng/mL 0.80-2.00 DIGOXIN - 04/03/17 09:50 DIGOXIN 0.5 mcg/L 0.8-2.0 [id number] - 05/08/17 11:03 Serum or plasma urea nitrogen measurement (mass/volume ) 22 mg/dL 7-18 Serum or plasma creatinine measurement (mass/volume) 0.99 mg/dL 0.60-1.30 Serum or plasma urea nitrogen/creatinine mass ratio 22 NRG Serum or plasma creatinine measurement w ith calculation of estimated glomerular filtration rate > NRG Arterial blood gas measurement - 8 16:32 Blood pCO2 48 mm[Hg] 35-45 Blood pO2 84 mm[Hg] 79-93 Arterial blood bicarbonate measurement (moles/volume) 26 mmol/L 23-27 Arterial blood base excess by calculation 0.6 mmol /L -2.5-2.5 Arterial blood oxygen saturation measurement 97 % 94-100 * Inhaled oxygen flow rate 24M O2 NRG Arterial blood pH measurement with patient temperature correction 7.34 7.37-7.43 Arterial blood carbon dioxide, total measurement (mole s/volume) 27.3 mmol/L 21.0-31.0 Body site RT RAD NRG Assessment of wrist artery patency prior to arterial p uncture YES-POS NRG Setting of ventilation mode NO NR G Measurement of body temperature 97.1 NRG Comprehensive metabolic panel - 09/29/17 14:47 Serum or plasma sodium measurement (moles/volume) 141 mmol/L 135-145 Serum or plasma potassium measurement (moles/volume) 4.4 mmol/L 3.6-5.0 Serum or plasma chloride measurement (moles/volume) 107 mmol/L 98-107 Carbon dioxide 25 mmol/L 21-32 Serum or plasma anion gap determination (moles/volume) 9 mmol/L 5-14 Serum or plasma urea nitrogen measurement (mass/volume ) 18 mg/dL 7-18 Serum or plasma creatinine measurement (mass/volume) 0.95 mg/dL 0.60-1.30 Serum or plasma urea nitrogen/creatinine mass ratio 19 NRG Serum or plasma creatinine measurement w ith calculation of estimated glomerular filtration rate > NRG Serum or plasma glucose measurement (mass/volume) 114 mg/dL 70-105 Serum or plasma calcium measurement (mass/volume) 9.9 mg/dL 8.5-10.1 Serum or plasma total bilirubin measurement (mass/volu me) 0.6 mg/dL 0.1-1.0 Serum or plasma alkaline phosphatase darren surement (enzymatic activity/volume) 85 U/L 40-136 Serum or plasma aspartate aminotransfera se measurement (enzymatic activity/volume) 31 U/L 5-34 Serum or plasma alanine aminotransferase measurement (enzymatic activity/volume) 46 U/L 0-55 Serum or plasma protein measurement (mass/volume) 7.4 g/dL 6.4-8.2 Serum or plasma albumin measurement (mass/volume) 4.0 g/dL 3.2-4.5 CALCIUM CORRECTED 9.9 mg/dL 8.5-10.1 THYROID STIMULATING HORMONE - 09/29/17 1 4:47 THYROID STIMULATING HORMONE 0.01 u[iU]/mL 0.35-4.94 Serum or plasma thyroxine (T4) free gil urement (mass/volume) - 09/29/17 14:47 Serum or plasma thyroxine (T4) free measurement (mass/ volume) 0.90 ng/dL 0.70-1.48 THYROID STIMULATING HORMONE - 06/20/18 1 2:54 THYROID STIMULATING HORMONE 0.03 u[iU]/mL 0.35-4.94 Serum or plasma thyroxine (T4) free gil urement (mass/volume) - 06/20/18 12:54 Serum or plasma thyroxine (T4) free measurement (mass/ volume) 0.85 ng/dL 0.70-1.48 Total triiodothyronine (T3) measurement - 06/20/18 12:54 Total triiodothyronine (T3) measurement 1.23 % 0.60-1.80 THYROID STIMULATING HORMONE - 08/14/18 1 1:58 THYROID STIMULATING HORMONE 0.12 u[iU]/mL 0.35-4.94 Serum or plasma thyroxine (T4) free gil urement (mass/volume) - 08/14/18 11:58 Serum or plasma thyroxine (T4) free measurement (mass/ volume) 0.74 ng/dL 0.70-1.48 Total triiodothyronine (T3) measurement - 08/14/18 11:58 Total triiodothyronine (T3) measurement 1.03 % 0.60-1.80 THYROID STIMULATING HORMONE - 11/02/18 1 3:00 THYROID STIMULATING HORMONE 0.54 u[iU]/mL 0.35-4.94 Serum or plasma thyroxine (T4) free gil urement (mass/volume) - 11/02/18 13:00 Serum or plasma thyroxine (T4) free measurement (mass/ volume) 0.82 ng/dL 0.70-1.48 TRIIODOTHYRONINE TOTAL T3 - 11/02/18 13: 00 TRIIODOTHYRONINE T3 TOTAL 0.92 % 0.60 -1.80 THYROID STIMULATING HORMONE - 02/25/19 1 4:25 THYROID STIMULATING HORMONE 1.80 u[iU]/mL 0.35-4.94 Serum or plasma thyroxine (T4) free gil urement (mass/volume) - 02/25/19 14:25 Serum or plasma thyroxine (T4) free measurement (mass/ volume) 0.83 ng/dL 0.70-1.48 TRIIODOTHYRONINE TOTAL T3 - 02/25/19 14: 25 TRIIODOTHYRONINE T3 TOTAL 0.85 % 0.60 -1.80 Comprehensive Metabolic Panel - 03/24/19 04:50 Albumin 4.0 g/dL 3.6-5.1 ALP 112 U/L 35-130 ALT 32 U/L 6-45 Anion Gap 12 6-14 AST 24 U/L 2-40 BUN 13 mg/dL 5-25 Calcium 9.3 mg/dL 8.3-10.4 Chloride 102 mmol/L 95-114 CO2 29 mEq/L 22-33 Creat 1.09 mg/dL 0.50-1.50 eGFR 68 mL/min/1.73m2 >59 Globulin 3.2 g/dL 2.3-3.5 Glucose 128 mg/dL 70-110 Osmo 289 280-295 Potassium 4.3 mmol/L 3.5-5.3 Sodium 139 mmol/L 134-148 TBil 0.8 mg/dL 0.2-1.2 TP 7.2 g/dL 6.0-8.3 Lactic Acid - 03/24/19 04:50 Lactic Acid 14.3 mg/dL 4.5-19.8 Blood Culture - 03/24/19 04:50 PRELIM CULTURE RESULTS Blood Culture Negativ e, No Growth Day 1 FINAL CULTURE RESULTS Blood Culture Negative , No Growth Day 5 MEDIA PLATED Setup at 05:34 on 03/24/2019 [id number] [employer] Position B36 CULTURE SOURCE drawn @ Right Arm IV start Influenza - 03/24/19 05:05 Influenza POSITIVE FOR A 0.00-0.00 Blood Culture - 03/24/19 05:05 PRELIM CULTURE RESULTS Blood Culture Negativ e, No Growth Day 1 FINAL CULTURE RESULTS Blood Culture Negative , No Growth Day 5 MEDIA PLATED Setup at 05:34 on 03/24/2019 [id number] [employer] Position B28 CULTURE SOURCE drawn @ Left arm EKG - 03/24/19 05:20 EKG Complete Arterial Blood Gas - 03/24/19 06:05 Base 4.00 mmol/L 1.80-4.20 HCO3 30 mmol/L 20-31 O2 Sat 90 2L % 95-100 pCO2 52 mm/Hg 35-45 pH 7.36 7.35-7.45 PO2 62 mm/Hg 80-95 Complete blood count (CBC) with automate d white blood cell (WBC) differential - 03/24/19 23:35 Blood leukocytes automated count (number/volume) 4.9 10*3/uL 4.3-11.0 Blood erythrocytes automated count (number/volume) 4.77 10*6/uL 4.35-5.85 Venous blood hemoglobin measurement (mass/volume) 13.9 g/dL 13.3-17.7 Blood hematocrit (volume fraction) 45 % 40-54 Automated erythrocyte mean corpuscular volume 94 [ foz_us] 80-99 Automated erythrocyte mean corpuscular h emoglobin (mass per erythrocyte) 29 pg 25-34 Automated erythrocyte mean corpuscular h emoglobin concentration measurement (mass/volume) 31 g/dL 32-36 Automated erythrocyte distribution width ratio 14. 1 % 10.0- 14.5 Automated blood platelet count (count/volume) 207 10*3/uL 130-400 Automated blood platelet mean volume measurement 9.4 [foz_us] 7.4-10.4 Automated blood neutrophils/100 leukocytes 91 % 42-75 Automated blood lymphocytes/100 leukocytes 6 % 12-44 Blood monocytes/100 leukocytes 2 % 0-12 Automated blood eosinophils/100 leukocytes 0 % 0-10 Automated blood basophils/100 leukocytes 0 % 0-10 Blood neutrophils automated count (number/volume) 4.4 10*3 1.8-7.8 Blood lymphocytes automated count (number/volume) 0.3 10*3 1.0-4.0 Blood monocytes automated count (number/volume) 0. 1 10*3 0.0-1.0 Automated eosinophil count 0.0 10*3/uL 0 .0-0.3 Automated blood basophil count (count/volume) 0.0 10*3/uL 0.0-0.1 Blood lactic acid measurement (moles/vol ume) - 03/24/19 23:35 Blood lactic acid measurement (moles/volume) 0.94 mmol/L 0.50-2.00 Whole blood basic metabolic panel - 04/11 23:35 Serum or plasma sodium measurement (moles/volume) 137 mmol/L 135-145 Serum or plasma potassium measurement (moles/volume) 4.7 mmol/L 3.6-5.0 Serum or plasma chloride measurement (moles/volume) 102 mmol/L 98-107 Carbon dioxide 26 mmol/L 21-32 Serum or plasma anion gap determination (moles/volume) 9 mmol/L 5-14 Serum or plasma urea nitrogen measurement (mass/volume ) 15 mg/dL 7-18 Serum or plasma creatinine measurement (mass/volume) 1.12 mg/dL 0.60-1.30 Serum or plasma urea nitrogen/creatinine mass ratio 13 NRG Serum or plasma creatinine measurement w ith calculation of estimated glomerular filtration rate > NRG Serum or plasma glucose measurement (mass/volume) 194 mg/dL 70-105 Serum or plasma calcium measurement (mass/volume) 8.6 mg/dL 8.5-10.1 Manual absolute plasma cell count - 04/11 23:35 Blood monocytes/100 leukocytes 1 % NRG Manual blood segmented neutrophils/100 leukocytes 94 % NRG Manual blood lymphocytes/100 leukocytes 5 % NRG Serum or plasma phosphate measurement (m ass/volume) - 03/24/19 23:35 Serum or plasma phosphate measurement (mass/volume) 3.0 mg/dL 2.3-4.7 Magnesium - 03/24/19 23:35 Magnesium 1.8 mg/dL 1.6-2.4 Complete blood count (CBC) with automate d white blood cell (WBC) differential - 03/25/19 05:40 Blood leukocytes automated count (number/volume) 4.3 10*3/uL 4.3-11.0 Blood erythrocytes automated count (number/volume) 4.70 10*6/uL 4.35-5.85 Venous blood hemoglobin measurement (mass/volume) 13.8 g/dL 13.3-17.7 Blood hematocrit (volume fraction) 45 % 40-54 Automated erythrocyte mean corpuscular volume 95 [ foz_us] 80-99 Automated erythrocyte mean corpuscular h emoglobin (mass per erythrocyte) 29 pg 25-34 Automated erythrocyte mean corpuscular h emoglobin concentration measurement (mass/volume) 31 g/dL 32-36 Automated erythrocyte distribution width ratio 14. 0 % 10.0- 14.5 Automated blood platelet count (count/volume) 219 10*3/uL 130-400 Automated blood platelet mean volume measurement 9.3 [foz_us] 7.4-10.4 Automated blood neutrophils/100 leukocytes 89 % 42-75 Automated blood lymphocytes/100 leukocytes 8 % 12-44 Blood monocytes/100 leukocytes 3 % 0-12 Automated blood eosinophils/100 leukocytes 0 % 0-10 Automated blood basophils/100 leukocytes 0 % 0-10 Blood neutrophils automated count (number/volume) 3.8 10*3 1.8-7.8 Blood lymphocytes automated count (number/volume) 0.3 10*3 1.0-4.0 Blood monocytes automated count (number/volume) 0. 1 10*3 0.0-1.0 Automated eosinophil count 0.0 10*3/uL 0 .0-0.3 Automated blood basophil count (count/volume) 0.0 10*3/uL 0.0-0.1 Blood lactic acid measurement (moles/vol ume) - 03/25/19 05:40 Blood lactic acid measurement (moles/volume) 1.18 mmol/L 0.50-2.00 Comprehensive metabolic panel - 03/25/19 05:40 Serum or plasma sodium measurement (moles/volume) 138 mmol/L 135-145 Serum or plasma potassium measurement (moles/volume) 5.4 mmol/L 3.6-5.0 Serum or plasma chloride measurement (moles/volume) 102 mmol/L 98-107 Carbon dioxide 28 mmol/L 21-32 Serum or plasma anion gap determination (moles/volume) 8 mmol/L 5-14 Serum or plasma urea nitrogen measurement (mass/volume ) 14 mg/dL 7-18 Serum or plasma creatinine measurement (mass/volume) 1.10 mg/dL 0.60-1.30 Serum or plasma urea nitrogen/creatinine mass ratio 13 NRG Serum or plasma creatinine measurement w ith calculation of estimated glomerular filtration rate > NRG Serum or plasma glucose measurement (mass/volume) 180 mg/dL 70-105 Serum or plasma calcium measurement (mass/volume) 8.3 mg/dL 8.5-10.1 Serum or plasma total bilirubin measurement (mass/volu me) 0.4 mg/dL 0.1-1.0 Serum or plasma alkaline phosphatase darren surement (enzymatic activity/volume) 102 U/L 40-136 Serum or plasma aspartate aminotransfera se measurement (enzymatic activity/volume) 36 U/L 5-34 Serum or plasma alanine aminotransferase measurement (enzymatic activity/volume) 49 U/L 0-55 Serum or plasma protein measurement (mass/volume) 7.0 g/dL 6.4-8.2 Serum or plasma albumin measurement (mass/volume) 3.8 g/dL 3.2-4.5 CALCIUM CORRECTED 8.5 mg/dL 8.5-10.1 Serum or plasma phosphate measurement (m ass/volume) - 03/25/19 05:40 Serum or plasma phosphate measurement (mass/volume) 2.9 mg/dL 2.3-4.7 Magnesium - 03/25/19 05:40 Magnesium 1.9 mg/dL 1.6-2.4 Serum or plasma lithium measurement (mol es/volume) - 03/25/19 05:40 BNP PT 95.8 pg/mL <100.0 Bacterial blood culture - 03/25/19 05:40 Bacterial blood culture NG NRG Bacterial blood culture - 03/25/19 05:43 Bacterial blood culture NG NRG Bacterial blood culture - 03/25/19 05:50 Bacterial blood culture NG NRG Arterial blood gas measurement - 0 06:52 Blood pCO2 65 mm[Hg] 35-45 Blood pO2 41 mm[Hg] 79-93 Arterial blood bicarbonate measurement (moles/volume) 30 mmol/L 23-27 Arterial blood base excess by calculation 4.0 mmol /L -2.5-2.5 Arterial blood oxygen saturation measurement 69 % 94-100 * Inhaled oxygen flow rate 70% NRG Arterial blood pH measurement with patient temperature correction 7.29 7.37-7.43 Arterial blood carbon dioxide, total measurement (mole s/volume) 32.3 mmol/L 21.0-31.0 Body site LEFT RADIAL NRG Assessment of wrist artery patency prior to arterial p uncture POSITIVE NRG Setting of ventilation mode NO NR G Measurement of body temperature 36.4 NRG Urine drug screening test - 03/25/19 09: 50 Urine phencyclidine detection by screening method NEGATIVE NEGATIVE Urine benzodiazepines detection by screening method NEGATIVE NEGATIVE Urine cocaine detection NEGATIVE NEGATI VE Urine amphetamines detection by screening method N EGATIVE NEGATIVE Urine methamphetamine detection by screening method NEGATIVE NEGATIVE Urine cannabinoids detection by screening method N EGATIVE NEGATIVE Urine opiates detection by screening method NEGATI VE NEGATIVE Urine barbiturates detection NEGATIVE N EGATIVE Screening urine tricyclic antidepressants detection NEGATIVE NEGATIVE Urine methadone detection by screening method NEGA TIVE NEGATIVE Urine oxycodone detection NEGATIVE NEGA TIVE Urine propoxyphene detection NEGATIVE N EGATIVE Complete urinalysis with reflex to cultu re - 03/25/19 09:50 Urine color determination YELLOW NRG Urine clarity determination CLEAR NR G Urine pH measurement by test strip 5.5 5-9 Specific gravity of urine by test strip >= 1.016-1.022 Urine protein assay by test strip, semi-quantitative 2+ NEGATIVE Urine glucose detection by automated test strip 2+ NEGATIVE Erythrocytes detection in urine sediment by light micr oscopy 1+ NEGATIVE Urine ketones detection by automated test strip NE GATIVE NEGATIVE Urine nitrite detection by test strip NEGATIVE NEGATIVE Urine total bilirubin detection by test strip NEGA TIVE NEGATIVE Urine urobilinogen measurement by automated test strip (mass/volume) 0.2 mg/dL < = 1.0 Urine leukocyte esterase detection by dipstick NEG ATIVE NEGATIVE Automated urine sediment erythrocyte cou nt by microscopy (number/high power field) [HPF] NRG Automated urine sediment leukocyte count by microscopy (number/high power field) NONE NRG Bacteria detection in urine sediment by light microsco py NEGATIVE NRG Squamous epithelial cells detection in u rine sediment by light microscopy NONE NRG Crystals detection in urine sediment by light microsco py NONE NRG Casts detection in urine sediment by light microscopy NONE NRG Mucus detection in urine sediment by light microscopy NEGATIVE NRG Complete urinalysis with reflex to culture NO NRG Comprehensive metabolic panel - 03/25/19 11:05 Serum or plasma sodium measurement (moles/volume) 137 mmol/L 135-145 Serum or plasma potassium measurement (moles/volume) 4.4 mmol/L 3.6-5.0 Serum or plasma chloride measurement (moles/volume) 103 mmol/L 98-107 Carbon dioxide 24 mmol/L 21-32 Serum or plasma anion gap determination (moles/volume) 10 mmol/L 5-14 Serum or plasma urea nitrogen measurement (mass/volume ) 15 mg/dL 7-18 Serum or plasma creatinine measurement (mass/volume) 1.09 mg/dL 0.60-1.30 Serum or plasma urea nitrogen/creatinine mass ratio 14 NRG Serum or plasma creatinine measurement w ith calculation of estimated glomerular filtration rate > NRG Serum or plasma glucose measurement (mass/volume) 326 mg/dL 70-105 Serum or plasma calcium measurement (mass/volume) 8.2 mg/dL 8.5-10.1 Serum or plasma total bilirubin measurement (mass/volu me) 0.4 mg/dL 0.1-1.0 Serum or plasma alkaline phosphatase darren surement (enzymatic activity/volume) 98 U/L 40-136 Serum or plasma aspartate aminotransfera se measurement (enzymatic activity/volume) 37 U/L 5-34 Serum or plasma alanine aminotransferase measurement (enzymatic activity/volume) 47 U/L 0-55 Serum or plasma protein measurement (mass/volume) 6.7 g/dL 6.4-8.2 Serum or plasma albumin measurement (mass/volume) 3.7 g/dL 3.2-4.5 CALCIUM CORRECTED 8.4 mg/dL 8.5-10.1 Serum or plasma phosphate measurement (m ass/volume) - 03/25/19 11:05 Serum or plasma phosphate measurement (mass/volume) 1.9 mg/dL 2.3-4.7 Magnesium - 03/25/19 11:05 Magnesium 1.8 mg/dL 1.6-2.4 THYROID STIMULATING HORMONE - 03/25/19 1 1:05 THYROID STIMULATING HORMONE 0.17 u[iU]/mL 0.35-4.94 Serum or plasma thyroxine (T4) free gil urement (mass/volume) - 03/25/19 11:05 Serum or plasma thyroxine (T4) free measurement (mass/ volume) 0.70 ng/dL 0.70-1.48 TRIIODOTHRYONINE T3 FREE - 03/25/19 11:0 5 TRIIODOTHYRONINE T3 FREE 1.76 pg/mL 1.71 -3.71 Arterial blood gas measurement - 0 12:45 Blood pCO2 57 mm[Hg] 35-45 Blood pO2 317 mm[Hg] 79-93 Arterial blood bicarbonate measurement (moles/volume) 27 mmol/L 23-27 Arterial blood base excess by calculation 0.7 mmol /L -2.5-2.5 Arterial blood oxygen saturation measurement 100 % 94-100 * Inhaled oxygen flow rate 70% NRG Arterial blood pH measurement with patient temperature correction 7.29 7.37-7.43 Arterial blood carbon dioxide, total measurement (mole s/volume) 28.3 mmol/L 21.0-31.0 Body site L RAD NRG Assessment of wrist artery patency prior to arterial p uncture YES-POS NRG Setting of ventilation mode NO NR G Measurement of body temperature 36.9 NRG Automated blood complete blood count ( mogram) panel - 03/26/19 03:20 Blood leukocytes automated count (number/volume) 7.8 10*3/uL 4.3-11.0 Blood erythrocytes automated count (number/volume) 4.61 10*6/uL 4.35-5.85 Venous blood hemoglobin measurement (mass/volume) 13.4 g/dL 13.3-17.7 Blood hematocrit (volume fraction) 44 % 40-54 Automated erythrocyte mean corpuscular volume 95 [ foz_us] 80-99 Automated erythrocyte mean corpuscular h emoglobin (mass per erythrocyte) 29 pg 25-34 Automated erythrocyte mean corpuscular h emoglobin concentration measurement (mass/volume) 31 g/dL 32-36 Automated erythrocyte distribution width ratio 14. 3 % 10.0- 14.5 Automated blood platelet count (count/volume) 204 10*3/uL 130-400 Automated blood platelet mean volume measurement 9.7 [foz_us] 7.4-10.4 Comprehensive metabolic panel - 03/26/19 03:20 Serum or plasma sodium measurement (moles/volume) 138 mmol/L 135-145 Serum or plasma potassium measurement (moles/volume) 4.6 mmol/L 3.6-5.0 Serum or plasma chloride measurement (moles/volume) 104 mmol/L 98-107 Carbon dioxide 24 mmol/L 21-32 Serum or plasma anion gap determination (moles/volume) 10 mmol/L 5-14 Serum or plasma urea nitrogen measurement (mass/volume ) 18 mg/dL 7-18 Serum or plasma creatinine measurement (mass/volume) 1.03 mg/dL 0.60-1.30 Serum or plasma urea nitrogen/creatinine mass ratio 17 NRG Serum or plasma creatinine measurement w ith calculation of estimated glomerular filtration rate > NRG Serum or plasma glucose measurement (mass/volume) 188 mg/dL 70-105 Serum or plasma calcium measurement (mass/volume) 8.0 mg/dL 8.5-10.1 Serum or plasma total bilirubin measurement (mass/volu me) 0.3 mg/dL 0.1-1.0 Serum or plasma alkaline phosphatase darren surement (enzymatic activity/volume) 82 U/L 40-136 Serum or plasma aspartate aminotransfera se measurement (enzymatic activity/volume) 38 U/L 5-34 Serum or plasma alanine aminotransferase measurement (enzymatic activity/volume) 45 U/L 0-55 Serum or plasma protein measurement (mass/volume) 6.5 g/dL 6.4-8.2 Serum or plasma albumin measurement (mass/volume) 3.6 g/dL 3.2-4.5 CALCIUM CORRECTED 8.3 mg/dL 8.5-10.1 Serum or plasma phosphate measurement (m ass/volume) - 03/26/19 03:20 Serum or plasma phosphate measurement (mass/volume) 2.5 mg/dL 2.3-4.7 Magnesium - 03/26/19 03:20 Magnesium 1.9 mg/dL 1.6-2.4 Arterial blood gas measurement - 0 05:29 Blood pCO2 66 mm[Hg] 35-45 Blood pO2 45 mm[Hg] 79-93 Arterial blood bicarbonate measurement (moles/volume) 31 mmol/L 23-27 Arterial blood base excess by calculation 4.4 mmol /L -2.5-2.5 Arterial blood oxygen saturation measurement 73 % 94-100 * Inhaled oxygen flow rate 65% NRG Arterial blood pH measurement with patient temperature correction 7.29 7.37-7.43 Arterial blood carbon dioxide, total measurement (mole s/volume) 32.8 mmol/L 21.0-31.0 Body site LEFT RADIAL NRG Assessment of wrist artery patency prior to arterial p uncture POSITIVE NRG Setting of ventilation mode NO NR G Measurement of body temperature 36.3 NRG Automated blood complete blood count (he mogram) panel - 03/27/19 03:15 Blood leukocytes automated count (number/volume) 9.7 10*3/uL 4.3-11.0 Blood erythrocytes automated count (number/volume) 4.53 10*6/uL 4.35-5.85 Venous blood hemoglobin measurement (mass/volume) 13.3 g/dL 13.3-17.7 Blood hematocrit (volume fraction) 43 % 40-54 Automated erythrocyte mean corpuscular volume 95 [ foz_us] 80-99 Automated erythrocyte mean corpuscular h emoglobin (mass per erythrocyte) 29 pg 25-34 Automated erythrocyte mean corpuscular h emoglobin concentration measurement (mass/volume) 31 g/dL 32-36 Automated erythrocyte distribution width ratio 14. 5 % 10.0- 14.5 Automated blood platelet count (count/volume) 214 10*3/uL 130-400 Automated blood platelet mean volume measurement 10.0 [foz_us] 7.4-10.4 Comprehensive metabolic panel - 03/27/19 03:15 Serum or plasma sodium measurement (moles/volume) 138 mmol/L 135-145 Serum or plasma potassium measurement (moles/volume) 4.0 mmol/L 3.6-5.0 Serum or plasma chloride measurement (moles/volume) 100 mmol/L 98-107 Carbon dioxide 28 mmol/L 21-32 Serum or plasma anion gap determination (moles/volume) 10 mmol/L 5-14 Serum or plasma urea nitrogen measurement (mass/volume ) 22 mg/dL 7-18 Serum or plasma creatinine measurement (mass/volume) 1.20 mg/dL 0.60-1.30 Serum or plasma urea nitrogen/creatinine mass ratio 18 NRG Serum or plasma creatinine measurement w ith calculation of estimated glomerular filtration rate > NRG Serum or plasma glucose measurement (mass/volume) 247 mg/dL 70-105 Serum or plasma calcium measurement (mass/volume) 7.6 mg/dL 8.5-10.1 Serum or plasma total bilirubin measurement (mass/volu me) 0.3 mg/dL 0.1-1.0 Serum or plasma alkaline phosphatase darren surement (enzymatic activity/volume) 75 U/L 40-136 Serum or plasma aspartate aminotransfera se measurement (enzymatic activity/volume) 35 U/L 5-34 Serum or plasma alanine aminotransferase measurement (enzymatic activity/volume) 46 U/L 0-55 Serum or plasma protein measurement (mass/volume) 6.5 g/dL 6.4-8.2 Serum or plasma albumin measurement (mass/volume) 3.5 g/dL 3.2-4.5 CALCIUM CORRECTED 8.0 mg/dL 8.5-10.1 Serum or plasma phosphate measurement (m ass/volume) - 03/27/19 03:15 Serum or plasma phosphate measurement (mass/volume) 2.2 mg/dL 2.3-4.7 Magnesium - 03/27/19 03:15 Magnesium 2.0 mg/dL 1.6-2.4 Serum or plasma lithium measurement (mol es/volume) - 03/27/19 03:15 BNP PT 73.4 pg/mL <100.0 Capillary blood glucose measurement by g lucometer (mass/volume) - 03/27/19 15:58 Capillary blood glucose measurement by glucometer (mas s/volume) 276 mg/dL 70-110 Capillary blood glucose measurement by g lucometer (mass/volume) - 03/27/19 20:02 Capillary blood glucose measurement by glucometer (mas s/volume) 223 mg/dL 70-110 Automated blood complete blood count (he mogram) panel - 03/28/19 03:10 Blood leukocytes automated count (number/volume) 8.4 10*3/uL 4.3-11.0 Blood erythrocytes automated count (number/volume) 4.65 10*6/uL 4.35-5.85 Venous blood hemoglobin measurement (mass/volume) 13.1 g/dL 13.3-17.7 Blood hematocrit (volume fraction) 44 % 40-54 Automated erythrocyte mean corpuscular volume 95 [ foz_us] 80-99 Automated erythrocyte mean corpuscular h emoglobin (mass per erythrocyte) 28 pg 25-34 Automated erythrocyte mean corpuscular h emoglobin concentration measurement (mass/volume) 30 g/dL 32-36 Automated erythrocyte distribution width ratio 14. 9 % 10.0- 14.5 Automated blood platelet count (count/volume) 210 10*3/uL 130-400 Automated blood platelet mean volume measurement 10.1 [foz_us] 7.4-10.4 Whole blood basic metabolic panel - 08/09 03:10 Serum or plasma sodium measurement (moles/volume) 141 mmol/L 135-145 Serum or plasma potassium measurement (moles/volume) 4.3 mmol/L 3.6-5.0 Serum or plasma chloride measurement (moles/volume) 101 mmol/L 98-107 Carbon dioxide 30 mmol/L 21-32 Serum or plasma anion gap determination (moles/volume) 10 mmol/L 5-14 Serum or plasma urea nitrogen measurement (mass/volume ) 19 mg/dL 7-18 Serum or plasma creatinine measurement (mass/volume) 1.04 mg/dL 0.60-1.30 Serum or plasma urea nitrogen/creatinine mass ratio 18 NRG Serum or plasma creatinine measurement w ith calculation of estimated glomerular filtration rate > NRG Serum or plasma glucose measurement (mass/volume) 187 mg/dL 70-105 Serum or plasma calcium measurement (mass/volume) 7.9 mg/dL 8.5-10.1 Serum or plasma phosphate measurement (m ass/volume) - 03/28/19 03:10 Serum or plasma phosphate measurement (mass/volume) 2.6 mg/dL 2.3-4.7 Magnesium - 03/28/19 03:10 Magnesium 2.2 mg/dL 1.6-2.4 Capillary blood glucose measurement by g lucometer (mass/volume) - 03/28/19 11:21 Capillary blood glucose measurement by glucometer (mas s/volume) 223 mg/dL 70-110 Capillary blood glucose measurement by g lucometer (mass/volume) - 03/28/19 15:05 Capillary blood glucose measurement by glucometer (mas s/volume) 260 mg/dL 70-110 Capillary blood glucose measurement by g lucometer (mass/volume) - 03/28/19 20:05 Capillary blood glucose measurement by glucometer (mas s/volume) 199 mg/dL 70-110 Automated blood complete blood count (he mogram) panel - 03/29/19 03:57 Blood leukocytes automated count (number/volume) 7.5 10*3/uL 4.3-11.0 Blood erythrocytes automated count (number/volume) 4.78 10*6/uL 4.35-5.85 Venous blood hemoglobin measurement (mass/volume) 13.8 g/dL 13.3-17.7 Blood hematocrit (volume fraction) 45 % 40-54 Automated erythrocyte mean corpuscular volume 95 [ foz_us] 80-99 Automated erythrocyte mean corpuscular h emoglobin (mass per erythrocyte) 29 pg 25-34 Automated erythrocyte mean corpuscular h emoglobin concentration measurement (mass/volume) 31 g/dL 32-36 Automated erythrocyte distribution width ratio 14. 6 % 10.0- 14.5 Automated blood platelet count (count/volume) 198 10*3/uL 130-400 Automated blood platelet mean volume measurement 10.3 [foz_us] 7.4-10.4 Whole blood basic metabolic panel - 09/08 03:57 Serum or plasma sodium measurement (moles/volume) 141 mmol/L 135-145 Serum or plasma potassium measurement (moles/volume) 4.3 mmol/L 3.6-5.0 Serum or plasma chloride measurement (moles/volume) 100 mmol/L 98-107 Carbon dioxide 31 mmol/L 21-32 Serum or plasma anion gap determination (moles/volume) 10 mmol/L 5-14 Serum or plasma urea nitrogen measurement (mass/volume ) 18 mg/dL 7-18 Serum or plasma creatinine measurement (mass/volume) 0.86 mg/dL 0.60-1.30 Serum or plasma urea nitrogen/creatinine mass ratio 21 NRG Serum or plasma creatinine measurement w ith calculation of estimated glomerular filtration rate > NRG Serum or plasma glucose measurement (mass/volume) 197 mg/dL 70-105 Serum or plasma calcium measurement (mass/volume) 8.0 mg/dL 8.5-10.1 Serum or plasma phosphate measurement (m ass/volume) - 03/29/19 03:57 Serum or plasma phosphate measurement (mass/volume) 2.0 mg/dL 2.3-4.7 Magnesium - 03/29/19 03:57 Magnesium 2.3 mg/dL 1.6-2.4 [id number] - 03/29/19 03:57 [id number] < 0.30 0.80-2.00 Serum or plasma lithium measurement (mol es/volume) - 03/29/19 03:57 BNP PT 146.5 pg/mL <100.0 Capillary blood glucose measurement by g lucometer (mass/volume) - 03/29/19 11:01 Capillary blood glucose measurement by glucometer (mas s/volume) 202 mg/dL 70-110 Capillary blood glucose measurement by g lucometer (mass/volume) - 03/29/19 15:57 Capillary blood glucose measurement by glucometer (mas s/volume) 161 mg/dL 70-110 Capillary blood glucose measurement by g lucometer (mass/volume) - 03/29/19 19:50 Capillary blood glucose measurement by glucometer (mas s/volume) 225 mg/dL 70-110 Automated blood complete blood count (he mogram) panel - 03/30/19 02:50 Blood leukocytes automated count (number/volume) 8.0 10*3/uL 4.3-11.0 Blood erythrocytes automated count (number/volume) 4.85 10*6/uL 4.35-5.85 Venous blood hemoglobin measurement (mass/volume) 13.8 g/dL 13.3-17.7 Blood hematocrit (volume fraction) 46 % 40-54 Automated erythrocyte mean corpuscular volume 94 [ foz_us] 80-99 Automated erythrocyte mean corpuscular h emoglobin (mass per erythrocyte) 29 pg 25-34 Automated erythrocyte mean corpuscular h emoglobin concentration measurement (mass/volume) 30 g/dL 32-36 Automated erythrocyte distribution width ratio 14. 4 % 10.0- 14.5 Automated blood platelet count (count/volume) 199 10*3/uL 130-400 Automated blood platelet mean volume measurement 9.8 [foz_us] 7.4-10.4 Whole blood basic metabolic panel - 10/09 02:50 Serum or plasma sodium measurement (moles/volume) 141 mmol/L 135-145 Serum or plasma potassium measurement (moles/volume) 4.6 mmol/L 3.6-5.0 Serum or plasma chloride measurement (moles/volume) 100 mmol/L 98-107 Carbon dioxide 32 mmol/L 21-32 Serum or plasma anion gap determination (moles/volume) 9 mmol/L 5-14 Serum or plasma urea nitrogen measurement (mass/volume ) 18 mg/dL 7-18 Serum or plasma creatinine measurement (mass/volume) 0.86 mg/dL 0.60-1.30 Serum or plasma urea nitrogen/creatinine mass ratio 21 NRG Serum or plasma creatinine measurement w ith calculation of estimated glomerular filtration rate > NRG Serum or plasma glucose measurement (mass/volume) 177 mg/dL 70-105 Serum or plasma calcium measurement (mass/volume) 8.1 mg/dL 8.5-10.1 Serum or plasma phosphate measurement (m ass/volume) - 03/30/19 02:50 Serum or plasma phosphate measurement (mass/volume) 2.5 mg/dL 2.3-4.7 Magnesium - 03/30/19 02:50 Magnesium 2.5 mg/dL 1.6-2.4 Capillary blood glucose measurement by g lucometer (mass/volume) - 03/30/19 10:45 Capillary blood glucose measurement by glucometer (mas s/volume) 225 mg/dL 70-110 Capillary blood glucose measurement by g lucometer (mass/volume) - 03/30/19 15:44 Capillary blood glucose measurement by glucometer (mas s/volume) 292 mg/dL 70-110 Capillary blood glucose measurement by g lucometer (mass/volume) - 03/30/19 20:22 Capillary blood glucose measurement by glucometer (mas s/volume) 204 mg/dL 70-110 Serum or plasma phosphate measurement (m ass/volume) - 03/31/19 03:15 Serum or plasma phosphate measurement (mass/volume) 2.9 mg/dL 2.3-4.7 Magnesium - 03/31/19 03:15 Magnesium 2.4 mg/dL 1.6-2.4 [id number] - 03/31/19 03:15 [id number] < 0.30 0.80-2.00 Complete blood count (CBC) with automate d white blood cell (WBC) differential - 03/31/19 03:15 Blood leukocytes automated count (number/volume) 9.4 10*3/uL 4.3-11.0 Blood erythrocytes automated count (number/volume) 5.24 10*6/uL 4.35-5.85 Venous blood hemoglobin measurement (mass/volume) 15.2 g/dL 13.3-17.7 Blood hematocrit (volume fraction) 49 % 40-54 Automated erythrocyte mean corpuscular volume 94 [ foz_us] 80-99 Automated erythrocyte mean corpuscular h emoglobin (mass per erythrocyte) 29 pg 25-34 Automated erythrocyte mean corpuscular h emoglobin concentration measurement (mass/volume) 31 g/dL 32-36 Automated erythrocyte distribution width ratio 14. 0 % 10.0- 14.5 Automated blood platelet count (count/volume) 234 10*3/uL 130-400 Automated blood platelet mean volume measurement 10.3 [foz_us] 7.4-10.4 Automated blood neutrophils/100 leukocytes 81 % 42-75 Automated blood lymphocytes/100 leukocytes 10 % 12-44 Blood monocytes/100 leukocytes 9 % 0-12 Automated blood eosinophils/100 leukocytes 0 % 0-10 Automated blood basophils/100 leukocytes 0 % 0-10 Blood neutrophils automated count (number/volume) 7.6 10*3 1.8-7.8 Blood lymphocytes automated count (number/volume) 1.0 10*3 1.0-4.0 Blood monocytes automated count (number/volume) 0. 9 10*3 0.0-1.0 Automated eosinophil count 0.0 10*3/uL 0 .0-0.3 Automated blood basophil count (count/volume) 0.0 10*3/uL 0.0-0.1 Whole blood basic metabolic panel - 11/09 03:15 Serum or plasma sodium measurement (moles/volume) 141 mmol/L 135-145 Serum or plasma potassium measurement (moles/volume) 4.5 mmol/L 3.6-5.0 Serum or plasma chloride measurement (moles/volume) 98 mmol/L 98-107 Carbon dioxide 32 mmol/L 21-32 Serum or plasma anion gap determination (moles/volume) 11 mmol/L 5-14 Serum or plasma urea nitrogen measurement (mass/volume ) 20 mg/dL 7-18 Serum or plasma creatinine measurement (mass/volume) 0.92 mg/dL 0.60-1.30 Serum or plasma urea nitrogen/creatinine mass ratio 22 NRG Serum or plasma creatinine measurement w ith calculation of estimated glomerular filtration rate > NRG Serum or plasma glucose measurement (mass/volume) 151 mg/dL 70-105 Serum or plasma calcium measurement (mass/volume) 8.2 mg/dL 8.5-10.1 Serum or plasma lithium measurement (mol es/volume) - 03/31/19 03:15 BNP PT 82.6 pg/mL <100.0 Capillary blood glucose measurement by g lucometer (mass/volume) - 03/31/19 10:33 Capillary blood glucose measurement by glucometer (mas s/volume) 183 mg/dL 70-110 Capillary blood glucose measurement by g lucometer (mass/volume) - 03/31/19 16:18 Capillary blood glucose measurement by glucometer (mas s/volume) 160 mg/dL 70-110 Capillary blood glucose measurement by g lucometer (mass/volume) - 03/31/19 20:24 Capillary blood glucose measurement by glucometer (mas s/volume) 182 mg/dL 70-110 Complete blood count (CBC) with automate d white blood cell (WBC) differential - 04/01/19 05:09 Blood leukocytes automated count (number/volume) 8.4 10*3/uL 4.3-11.0 Blood erythrocytes automated count (number/volume) 5.40 10*6/uL 4.35-5.85 Venous blood hemoglobin measurement (mass/volume) 15.6 g/dL 13.3-17.7 Blood hematocrit (volume fraction) 50 % 40-54 Automated erythrocyte mean corpuscular volume 92 [ foz_us] 80-99 Automated erythrocyte mean corpuscular h emoglobin (mass per erythrocyte) 29 pg 25-34 Automated erythrocyte mean corpuscular h emoglobin concentration measurement (mass/volume) 32 g/dL 32-36 Automated erythrocyte distribution width ratio 13. 8 % 10.0- 14.5 Automated blood platelet count (count/volume) 233 10*3/uL 130-400 Automated blood platelet mean volume measurement 9.5 [foz_us] 7.4-10.4 Automated blood neutrophils/100 leukocytes 70 % 42-75 Automated blood lymphocytes/100 leukocytes 20 % 12-44 Blood monocytes/100 leukocytes 9 % 0-12 Automated blood eosinophils/100 leukocytes 1 % 0-10 Automated blood basophils/100 leukocytes 0 % 0-10 Blood neutrophils automated count (number/volume) 5.9 10*3 1.8-7.8 Blood lymphocytes automated count (number/volume) 1.7 10*3 1.0-4.0 Blood monocytes automated count (number/volume) 0. 8 10*3 0.0-1.0 Automated eosinophil count 0.1 10*3/uL 0 .0-0.3 Automated blood basophil count (count/volume) 0.0 10*3/uL 0.0-0.1 Whole blood basic metabolic panel - 03/23 05:09 Serum or plasma sodium measurement (moles/volume) 142 mmol/L 135-145 Serum or plasma potassium measurement (moles/volume) 3.9 mmol/L 3.6-5.0 Serum or plasma chloride measurement (moles/volume) 98 mmol/L 98-107 Carbon dioxide 35 mmol/L 21-32 Serum or plasma anion gap determination (moles/volume) 9 mmol/L 5-14 Serum or plasma urea nitrogen measurement (mass/volume ) 21 mg/dL 7-18 Serum or plasma creatinine measurement (mass/volume) 0.97 mg/dL 0.60-1.30 Serum or plasma urea nitrogen/creatinine mass ratio 22 NRG Serum or plasma creatinine measurement w ith calculation of estimated glomerular filtration rate > NRG Serum or plasma glucose measurement (mass/volume) 103 mg/dL 70-105 Serum or plasma calcium measurement (mass/volume) 8.0 mg/dL 8.5-10.1 Serum or plasma phosphate measurement (m ass/volume) - 04/01/19 05:09 Serum or plasma phosphate measurement (mass/volume) 3.4 mg/dL 2.3-4.7 Magnesium - 04/01/19 05:09 Magnesium 2.2 mg/dL 1.6-2.4 Capillary blood glucose measurement by g lucometer (mass/volume) - 04/01/19 11:15 Capillary blood glucose measurement by glucometer (mas s/volume) 121 mg/dL 70-110 Whole blood basic metabolic panel - 03/24 06/09 11:44 Serum or plasma sodium measurement (moles/volume) 140 mmol/L 135-145 Serum or plasma potassium measurement (moles/volume) 4.2 mmol/L 3.6-5.0 Serum or plasma chloride measurement (moles/volume) 101 mmol/L 98-107 Carbon dioxide 30 mmol/L 21-32 Serum or plasma anion gap determination (moles/volume) 9 mmol/L 5-14 Serum or plasma urea nitrogen measurement (mass/volume ) 12 mg/dL 7-18 Serum or plasma creatinine measurement (mass/volume) 0.99 mg/dL 0.60-1.30 Serum or plasma urea nitrogen/creatinine mass ratio 12 NRG Serum or plasma creatinine measurement w ith calculation of estimated glomerular filtration rate > NRG Serum or plasma glucose measurement (mass/volume) 122 mg/dL 70-105 Serum or plasma calcium measurement (mass/volume) 9.5 mg/dL 8.5-10.1 Magnesium - 04/15/19 11:44 Magnesium 1.8 mg/dL 1.6-2.4 THYROID STIMULATING HORMONE - 04/15/19 1 1:44 THYROID STIMULATING HORMONE 3.18 u[iU]/mL 0.35-4.94 [id number] - 04/15/19 11:44 [id number] 0.55 ng/mL 0.80-2.00 Automated blood complete blood count (he mogram) panel - 04/30/19 11:10 Blood leukocytes automated count (number/volume) 9.2 10*3/uL 4.3-11.0 Blood erythrocytes automated count (number/volume) 4.87 10*6/uL 4.35-5.85 Venous blood hemoglobin measurement (mass/volume) 14.3 g/dL 13.3-17.7 Blood hematocrit (volume fraction) 45 % 40-54 Automated erythrocyte mean corpuscular volume 93 [ foz_us] 80-99 Automated erythrocyte mean corpuscular h emoglobin (mass per erythrocyte) 29 pg 25-34 Automated erythrocyte mean corpuscular h emoglobin concentration measurement (mass/volume) 32 g/dL 32-36 Automated erythrocyte distribution width ratio 14. 7 % 10.0- 14.5 Automated blood platelet count (count/volume) 305 10*3/uL 130-400 Automated blood platelet mean volume measurement 9.8 [foz_us] 7.4-10.4 PT panel in platelet poor plasma by coag ulation assay - 04/30/19 11:10 Prothrombin time (PT) in platelet poor plasma by coagu lation assay 14.1 s 12.2-14.7 INR in platelet poor plasma or blood by coagulation as say 1.0 0.8-1.4 Activated partial thromboplastin time (a PTT) in platelet poor plasma bycoagulation assay - 04/30/19 11:10 Activated partial thromboplastin time (a PTT) in platelet poor plasma bycoagulation assay 31 s 24-35 Comprehensive metabolic panel - 04/30/19 11:10 Serum or plasma sodium measurement (moles/volume) 142 mmol/L 135-145 Serum or plasma potassium measurement (moles/volume) 4.3 mmol/L 3.6-5.0 Serum or plasma chloride measurement (moles/volume) 101 mmol/L 98-107 Carbon dioxide 29 mmol/L 21-32 Serum or plasma anion gap determination (moles/volume) 12 mmol/L 5-14 Serum or plasma urea nitrogen measurement (mass/volume ) 15 mg/dL 7-18 Serum or plasma creatinine measurement (mass/volume) 1.04 mg/dL 0.60-1.30 Serum or plasma urea nitrogen/creatinine mass ratio 14 NRG Serum or plasma creatinine measurement w ith calculation of estimated glomerular filtration rate > NRG Serum or plasma glucose measurement (mass/volume) 126 mg/dL 70-105 Serum or plasma calcium measurement (mass/volume) 9.7 mg/dL 8.5-10.1 Serum or plasma total bilirubin measurement (mass/volu me) 0.6 mg/dL 0.1-1.0 Serum or plasma alkaline phosphatase darren surement (enzymatic activity/volume) 104 U/L 40-136 Serum or plasma aspartate aminotransfera se measurement (enzymatic activity/volume) 23 U/L 5-34 Serum or plasma alanine aminotransferase measurement (enzymatic activity/volume) 27 U/L 0-55 Serum or plasma protein measurement (mass/volume) 7.5 g/dL 6.4-8.2 Serum or plasma albumin measurement (mass/volume) 4.1 g/dL 3.2-4.5 CALCIUM CORRECTED 9.6 mg/dL 8.5-10.1 Lipid 1996 panel - 04/30/19 11:10 Serum or plasma triglyceride measurement (mass/volume) 217 mg/dL <150 Serum or plasma cholesterol measurement (mass/volume) 174 mg/dL < 200 Serum or plasma cholesterol in HDL measurement (mass/v olume) 45 mg/dL 40-60 Cholesterol in LDL [mass/volume] in serum or plasma by direct assay 116 mg/dL 1-129 Serum or plasma cholesterol in VLDL measurement (mass/ volume) 43 mg/dL 5-40 Methicillin resistant Staphylococcus aur eus (MRSA) screening culture - 04/30/19 11:10 Methicillin resistant Staphylococcus aureus (MRSA) scr eening culture NEG NRG Encounters ACCT No. Visit Date/Time Discharge Status Pt. Type Provider Facility Loc./Unit Complaint [id number] 03/24/2019 04:40:00 03/24/2019 07:30 :00 DIS Out[place] [facility] [place] [id number] 03/24/2019 05:05:08 Document Registration [id number] 04/30/2019 10:48:00 14:28:00 DIS Outpatient EVELIA CARMEN MD, FACC, FACP CC DS [facility] AFIB,HTN,CARDIOMYOPATHY,SOB,FATIGUE [id number] 04/15/2019 11:31:00 23:59:59 CLS Outpatient DI MOFFETT [facility] LAB MARY[place] [id number] 03/24/2019 08:08:00 16:15:00 DIS Inpatient ORTIZ DO, NICOLA V [facility] 4TH FLU A, PNEUMONIA, AFIB W RVR [id number] 02/25/2019 14:15:00 23:59:59 CLS Outpatient SANNA LI DO L [facility] LAB MULTINODULAR GO ITER [id number] 12/25/2018 07:19:00 23:59:59 CLS Outpatient DI MOFFETT [facility] CARD WIDE COMPLEX TA CHYCARDIA [id number] 12/10/2018 09:45:00 23:59:59 CLS Outpatient EVELIA CARMEN MD, FACC, FACP CC DS [facility] LAB I48.0,G47.33,I95.0,J98.4 [id number] 11/12/2018 12:04:00 23:59:59 CLS Outpatient EVELIA CARMEN MD, FACC, FACP DS [facility] CARD AFIB [id number] 11/05/2018 13:09:00 23:59:59 CLS Preadmit LI DO, SANNA L [facility] RAD MULTINODULAR GOITER [id number] 11/02/2018 12:48:00 23:59:59 CLS Outpatient LI DO, SANNA L [facility] LAB MULTINODULAR GO ITER [id number] 08/14/2018 11:42:00 23:59:59 CLS Outpatient LI DO, SANNA L [facility] LAB E04.2 [id number] 08/09/2018 11:47:00 23:59:59 CLS Outpatient BAIDI ROSE DIRECTOR OF LITIGATION [facility] CARD ATRIAL FIBRILLA TION [id number] 08/06/2018 12:10:00 23:59:59 CLS Outpatient LI DO, SANNA L [facility] RAD MULTINODULAR GO ITER [id number] 06/27/2018 11:30:00 23:59:59 CLS Preadmit LI DO, SANNA L [facility] CARD MULTINODULAR GOITER [id number] 06/26/2018 10:43:00 23:59:59 CLS Outpatient LI DO, SANNA L [facility] RAD MULTINODULAR GO ITER [id number] 06/20/2018 12:32:00 019 23:59:59 CLS Outpatient LI DO, SANNA L [facility] LAB ROUTINE LAB [id number] 11/16/2017 13:55:00 018 23:59:59 CLS Outpatient BAIDI ROSE DIRECTOR OF LITIGATION [facility] RAD GROIN PAIN [id number] 10/11/2017 07:24:00 23:59:59 CLS Preadmit LI DO, SANNA L [facility] RAD MULTINODULAR GOITER [id number] 07/14/2017 15:13:00 018 23:59:59 CLS Outpatient MONIKA BROWN, VICK Soto [facility] RAD THYROID NODULE [id number] 06/13/2017 15:39:00 018 23:59:59 CLS Outpatient RENUKA BAKER APRN [facility] RT R06.00 [id number] 06/13/2017 15:31:00 018 23:59:59 CLS Outpatient KERMIT BROWN FACErin, EVELIA YOUNGER CC DS [facility] LAB I10 [id number] 05/08/2017 10:54:00 018 23:59:59 CLS Outpatient RENUKA BAKER APRN [facility] RAD RESTRICTIVE DORIAN G DISEASE J98.4 [id number] 04/28/2017 13:26:00 018 23:59:59 CLS Outpatient KERMIT BROWN FACC, EVELIA YOUNGER CC DS [facility] LAB I48.0,I50.4 2,I42.0,I10 [id number] 03/25/2017 21:16:00 018 07:35:00 DIS Outpatient RENUKA BAKER APRN [facility] SLEEP G47.33 MARYCHUY [id number] 03/22/2017 11:42:00 018 23:59:59 CLS Outpatient RENUKA BAKER APRN [facility] RT R06.00 DYSPNEA [id number] 02/28/2017 10:45:00 018 23:59:59 CLS Outpatient DI MOFFETT [facility] LAB I48.91 [id number] 02/22/2017 01:45:00 018 13:30:00 DIS Inpatient LIZZIE BROWN, TYREL Munoz [facility] ICU CHEST PAIN-R/O ACS,AFIB W/RVR NEW ONSET [id number] 12/13/2016 14:53:00 017 23:59:59 CLS Outpatient CARROL ANDRADE [facility] RAD INCOMPLETE TEAR OF RT R OTATOR CUFF M75.111 [id number] 04/25/2016 08:27:00 017 12:20:00 DIS Emergency CONNIE RANGEL MD [facility] ER DENTAL/FACIAL P AIN HEADACHE FEVER [id number] 10/18/2013 12:56:00 014 23:59:59 CLS Outpatient CONNIE MONTANEZ [facility] RAD LEFT KNEE PAIN [id number] 05/13/2019 15:15:00 P EN Preadmit RENUKA BAKER E HEDIS COORDINATOR [facility] RAD SEASONAL ALLERGY [id number] 06/20/2018 12:35:00 Document Registration [id number] 09/29/2017 15:08:00 Document Registration [id number] 09/01/2011 10:23:00 Document Registration [id number] 08/27/2011 07:52:00 Document Registration [id number] 07/14/2011 10:53:00 Document Registration [id number] 09/28/2009 12:26:00 Document Registration [id number] 11/14/2013 14:21:00 11/14/2013 23:59: 59 CLS Outpatient CARROL ANDRADE APRN [id number] 10/07/2013 11:20:00 10/07/2013 23:59: 59 CLS Outpatient PAMELA WHELAN DO [id number] 08/20/2013 08:11:00 08/20/2013 23:59: 59 CLS Outpatient PAMELA WHELAN DO [id number] 05/21/2012 17:27:00 05/21/2012 23:59: 59 CLS Outpatient PAMELA WHELAN DO [id number] 11/25/2011 10:42:00 11/25/2011 23:59: 59 CLS Outpatient [id number] 07/27/2018 09:30:00 07/27/2018 23:59: 59 CLS [facility] [place] [id number] 04/03/2017 09:00:00 Document Registration
== END 2019-04-30 14:28 | disposition home or self-care (01) ==
LOC: CATH 10:48
PROVIDERS: ATTEND Internal Medicine Cardiovascular Disease
DX: I48.19 Other persistent atrial fibrillation (principal); I48.0 Paroxysmal atrial fibrillation; I42.0 Dilated cardiomyopathy; I50.42 Chronic combined systolic (congestive) and diastolic (congestive) heart failure; I11.0 Hypertensive heart disease with heart failure; I95.9 Hypotension, unspecified; G47.33 Obstructive sleep apnea (adult) (pediatric); J30.9 Allergic rhinitis, unspecified; E78.5 Hyperlipidemia, unspecified; E66.2 Morbid (severe) obesity with alveolar hypoventilation; E05.90 Thyrotoxicosis, unspecified without thyrotoxic crisis or storm; G89.29 Other chronic pain; M25.511 Pain in right shoulder; Z88.8 Allergy status to other drugs, medicaments and biological substances; Z88.1 Allergy status to other antibiotic agents; Z99.89 Dependence on other enabling machines and devices; Z87.891 Personal history of nicotine dependence; Z79.01 Long term (current) use of anticoagulants; Z79.82 Long term (current) use of aspirin; Z79.899 Other long term (current) drug therapy; Z68.42 Body mass index [BMI] 45.0-49.9, adult; Z85.51 Personal history of malignant neoplasm of bladder; Z83.3 Family history of diabetes mellitus; Z80.1 Family history of malignant neoplasm of trachea, bronchus and lung; Z82.3 Family history of stroke
CPT/HCPCS: 36415; 80053; 80061; 85027; 85610; 85730; 87081; 92960; 93005

== ENCOUNTER → 2019-07-16 | Outpatient (CLI) | payer MEDICARE ==
[~2019-07-16] MED LIST changes: +DIGO250T3 PO
[2019-07-16 12:26] LABS: FREE T4 (FREE THYROXINE) 0.73 NG/DL (0.70-1.48)
== END ==
LOC: LAB 11:00
PROVIDERS: ATTEND Internal Medicine Endocrinology, Diabetes & Metabolism
DX: E04.2 Nontoxic multinodular goiter (principal)
CPT/HCPCS: 36415; 84439; 84443; 84480

== ENCOUNTER → 2019-07-16 | Outpatient (CLI) | payer MEDICAID, MEDICARE ==
[~2019-07-16] MED LIST changes: +HOLD METFORMIN - RECEIVED CONTRAST 20 ML VIAL IV SCH; +IOHEXOL 350 MG/ML 100 ML (OMNIPAQUE 350) VIAL IV ONE; +NS 100 ML (IVPB) BAG IV ONE
[2019-07-16 12:02] LABS: CREATININE SERUM 0.97 MG/DL (0.60-1.30); GFR ESTIMATED > 60
[2019-07-16 12:03] LABS: BUN/CREATININE RATIO 16
--- NOTE | 2019-07-16 13:01 | Diagnostic Imaging Report ---
EXAMINATION: CT Chest with intravenous contrast. TECHNIQUE: Multiple contiguous axial images were obtained through the chest after the uneventful administration of intravenous contrast. All CT scans use one or more of the following dose optimizing techniques: automated exposure control, MA and/or KvP adjustment based on a patient size and exam type, or iterative reconstruction. INDICATION: Restrictive lung disease and hypoxia. COMPARISON: 05/08/2017 FINDINGS: There is no edema or pneumonia. No pleural effusion. No pneumothorax. No suspicious nodules. Heart size is normal. There are mild coronary artery calcifications. No pericardial effusion. Aorta is normal in caliber. There is no axillary or supraclavicular lymphadenopathy. There is no mediastinal lymphadenopathy. Limited views of the upper abdomen show hepatic steatosis. There are no suspicious osseus lesions. IMPRESSION: 1. Clear lungs. 2. Mild hepatic steatosis. Dictated by: Dictated on workstation # [id number]
== END ==
LOC: RAD 10:56
PROVIDERS: ATTEND Nurse Practitioner Family
DX: K76.0 Fatty (change of) liver, not elsewhere classified (principal); J30.2 Other seasonal allergic rhinitis; J18.8 Other pneumonia, unspecified organism; J98.4 Other disorders of lung
CPT/HCPCS: 36415; 71260; 82565; 84520

== ENCOUNTER → 2019-09-18 | Outpatient (CLI) | payer MEDICARE, MEDICAID ==
[~2019-09-18] MED LIST changes: -HOLD METFORMIN - RECEIVED CONTRAST 20 ML VIAL IV SCH; -IOHEXOL 350 MG/ML 100 ML (OMNIPAQUE 350) VIAL IV ONE; -NS 100 ML (IVPB) BAG IV ONE
== END ==
LOC: CARD 12:00
PROVIDERS: ATTEND Internal Medicine Cardiovascular Disease
DX: I42.0 Dilated cardiomyopathy (principal); G47.33 Obstructive sleep apnea (adult) (pediatric); I10 Essential (primary) hypertension
CPT/HCPCS: 93306

== ENCOUNTER → 2019-10-25 | Outpatient (CLI) | payer MEDICARE, MEDICAID ==
--- NOTE | 2019-10-25 17:00 | Diagnostic Imaging Report ---
PROCEDURE: US Thyroid. TECHNIQUE: Multiple real-time grayscale images were obtained of the thyroid in various projections. INDICATION: Multinodular goiter. COMPARISON: 06/26/2018, 07/14/2017 FINDINGS: The right thyroid lobe is mildly large, measuring 6.0 x 2.9 x 2.9 cm. Vascularity is normal. It is mildly heterogeneous, with multiple nodules: 1. In the superior right thyroid, there is a heterogeneous mostly solid nodule with punctate internal calcifications, which measures 3.1 x 1.9 x 2.1 cm. This is hypoechoic and wider than tall. This previously measured 2.5 x 1.7 x 1.6 cm. On the June 2017 exam, this was measured at 1.9 x 1.4 x 1.6 cm. This was previously biopsied, and remains suspicious. 2. At the inferior posterior thyroid, there is an anechoic cystic nodule measuring 1.6 x 1.2 x 1.0 cm. This previously measured 1.7 x 1.4 x 1.1 cm. The isthmus measures 3 mm in thickness and appears normal. The left thyroid lobe is mildly large measuring 6.1 x 3.5 x 3.2 cm. Vascularity is normal. There is mild heterogeneity of the echotexture. There is a large partially cystic, partially solid nodule which measures 4.0 x 3.0 x 3.0 cm. No definite calcifications are seen. This previously measured 3.7 x 2.8 x 2.5 cm. On the June 2017 exam, this measured 3.8 x 2.8 x 3.0 cm. This was previously biopsied. IMPRESSION: 1. Heterogeneous nodule in the right thyroid measures up to 3.1 cm. This was previously biopsied, and remains suspicious. There has been interval growth compared to 2018 and 2017. Re-biopsy could be considered, otherwise recommend follow-up in one year. 2. Large solid/cystic nodule in the left thyroid. This was previously biopsied, and remains suspicious, primarily due to size. This also demonstrates minimal growth since the prior study but is stable since 2018. Recommend follow-up in one year. Dictated by: Dictated on workstation # [id number]
== END ==
LOC: RAD 13:42
PROVIDERS: ATTEND Internal Medicine Endocrinology, Diabetes & Metabolism
DX: E04.2 Nontoxic multinodular goiter (principal)
CPT/HCPCS: 76536

== ENCOUNTER → 2020-07-24 | Outpatient (CLI) | payer MEDICARE | LOC: LABNPT 06:38 | PROVIDERS: ATTEND Nurse Practitioner Family | DX: Z01.89 Encounter for other specified special examinations (principal) ==

== ENCOUNTER → 2020-07-27 | Outpatient (CLI) | payer MEDICARE | LOC: LABNPT 06:35 | PROVIDERS: ATTEND Nurse Practitioner Family | DX: Z01.812 Encounter for preprocedural laboratory examination (principal); Z20.822 Contact with and (suspected) exposure to COVID-19 | CPT/HCPCS: 87635 ==

== ENCOUNTER 2020-07-28 19:20 | Outpatient (CLI) | payer MEDICAID, MEDICARE | END 2020-07-29 07:18 | disposition home or self-care (01) | LOC: SLEEP 19:20 | PROVIDERS: ATTEND Nurse Practitioner Family | DX: G47.33 Obstructive sleep apnea (adult) (pediatric) (principal) | CPT/HCPCS: 95811 ==

== ENCOUNTER → 2020-07-29 | Outpatient (CLI) | payer MEDICAID, MEDICARE ==
[~2020-07-29] MED LIST changes: +CATHETER FLUSH 10 ML SYR IV PRN; +HOLD METFORMIN - RECEIVED CONTRAST 20 ML VIAL IV SCH; +IOHEXOL 350 MG/ML 100 ML (OMNIPAQUE 350) VIAL IV ONE; +NS 100 ML (IVPB) BAG IV ONE; +RT-ALBUTEROL SULF 2.5 MG/3 ML PRE-MIX VIAL INH ONE
[2020-07-29 09:01] LABS: BUN/CREATININE RATIO 17; CREATININE SERUM 0.99 MG/DL (0.60-1.30); GFR ESTIMATED > 60
--- NOTE | 2020-07-29 10:30 | Diagnostic Imaging Report ---
PROCEDURE: CT chest with contrast only. TECHNIQUE: Multiple contiguous axial images were obtained through the chest after administration of intravenous contrast. Auto Exposure Controls were utilized during the CT exam to meet ALARA standards for radiation dose reduction. INDICATION: Shortness of breath. The previous CT chest exam performed on 07/16/2019 failed to show any sign of an acute cardiopulmonary abnormality. In the interval since the prior study a vague alveolar/interstitial infiltrate has developed along the periphery of the right midlung. (Image 64.85). This may be related to very mild pneumonia/atelectasis. The lungs are otherwise generally clear. There is no consolidated pneumonia identified and there is no evidence for pleural effusion or failure. The heart size is at the upper limits of normal and stable when compared to the prior exam. Sparse coronary artery calcifications are evident. The aorta and the pulmonary arteries were not fully opacified and consequently difficult to evaluate for a dissection or for a pulmonary embolus. There is no clear evidence for a dissection and there is no definite effect for a pulmonary embolus. The aorta is not abnormally dilated either. There is no mediastinal or hilar adenopathy noted. A few small nodes are again evident in the pretracheal region on the right. These seem similar to the prior study. The thyroid gland was not included on this study. The sections through the upper abdomen failed to show any sign of an acute abnormality. As noted on the prior exam the liver is of lower density than usually seen and this does suggest fatty metamorphosis. The bone windows are unremarkable for a fracture or for a destructive lesion. IMPRESSION: 1. In the interval since the prior study a small vague area of slight increased density has developed on the periphery of the right midlung. This may be secondary to mild pneumonia/atelectasis. Clinical follow-up is recommended. 2. There is no acute cardiopulmonary abnormality noted otherwise. However the pulmonary arteries and aorta were not optimally opacified. 3. The heart size is at the upper limits of normal and there are sparse coronary artery calcifications evident. 4. The appearance of the liver does suggest fatty metamorphosis. Dictated by: Dictated on workstation # [id number]
== END ==
LOC: RT 08:00
PROVIDERS: ATTEND Nurse Practitioner Family
DX: I25.10 Atherosclerotic heart disease of native coronary artery without angina pectoris (principal); J98.4 Other disorders of lung; R91.8 Other nonspecific abnormal finding of lung field
CPT/HCPCS: 36415; 71260; 82565; 84520; 94060; 94726; 94729

== ENCOUNTER → 2021-07-21 | Outpatient (CLI) | payer MEDICARE ==
[~2021-07-21] MED LIST changes: -CATHETER FLUSH 10 ML SYR IV PRN; +DILT180C85 PO; +DILT240T10 PO; -HOLD METFORMIN - RECEIVED CONTRAST 20 ML VIAL IV SCH; -IOHEXOL 350 MG/ML 100 ML (OMNIPAQUE 350) VIAL IV ONE; -LISI2.5T PO; +LISI2.5T13 PO; -METH5TAB5 PO; +METH5TAB95 PO; -NS 100 ML (IVPB) BAG IV ONE; -RT-ALBUTEROL SULF 2.5 MG/3 ML PRE-MIX VIAL INH ONE
--- NOTE | 2021-07-21 16:47 | Diagnostic Imaging Report ---
PROCEDURE: US Thyroid. TECHNIQUE: Multiple real-time grayscale images were obtained of the thyroid in various projections. INDICATION: Multinodular goiter. COMPARISON: Correlation is made with prior ultrasound from 10/25/2019. Right lobe of thyroid measures 6.9 x 3.2 x 3.1 cm and left lobe measures 6.7 x 3.8 x 3.9 cm. Isthmus is 4 mm in thickness. A mixed solid and cystic mass in mid to upper pole right lobe of the thyroid measures 3.3 x 2.6 x 2.0 cm this compares with 3.1 x 1.9 x 2.1 cm on prior exam. Primarily cystic nodule in lower pole right lobe measures 1.3 x 1.4 x 1.0 cm. This appears stable. On the left, there is a mixed solid and cystic mass in the mid upper pole measuring 4.2 x 3.7 x 2.6 cm. This compares with 4.0 x 3.0 x 3.0 cm on prior. No new mass on the left is identified. IMPRESSION: Bilateral mixed solid and cystic masses. The dominant masses in each lobe do show slight increase in size. Reportedly, these have been biopsied but results are not available. Dictated by: Dictated on workstation # [id number]
== END ==
LOC: RAD 14:34
PROVIDERS: ATTEND Nurse Practitioner Family
DX: E04.2 Nontoxic multinodular goiter (principal); E05.90 Thyrotoxicosis, unspecified without thyrotoxic crisis or storm; Z98.890 Other specified postprocedural states
CPT/HCPCS: 76536

== ENCOUNTER 2021-10-09 17:01 | Emergency (ER) | payer MEDICARE ==
[~2021-10-09] VITALS: Ht 182.9 cm; Wt 165.1 kg
--- NOTE | 2021-10-09 17:35 | ED EENT ---
History of Present Illness General Chief Complaint: Dental Problems/Pain Stated Complaint: DENTAL PAIN Nursing Triage Note: Pt reports pain started two days ago when he was wearing his home bipap unit, describes a pain shooting from side of right nose to his "remaining eye tooth" on the right side. States pain is intermittent, right now he has no pain, but if he touches where the pain is, the pain is at a 10. Source: patient History of Present Illness Date Seen by Provider: Oct 09, 2021 Time Seen by Provider: 17:29 Initial Comments Patient presents for right upper dental pain. He states it started 3 days ago and "shoots into my sinuses." He has had problems with his teeth before, and this feels similar. Timing/Duration: gradual Location: dental Allergies and Home Medications Allergies Coded Allergies: clindamycin (Verified Allergy, Unknown, 04/25/16) Uncoded Allergies: CEYANE PEPPER (Allergy, Unknown, 04/25/16) ENDOMETHICIN (Allergy, Unknown, 04/25/16) Patient Home Medication List Home Medication List Reviewed: Yes Albuterol Sulfate (Proair Hfa) 1 Puff Puff, 2 PUFF IH QID PRN for SHORTNESS OF BREATH, (Reported) Entered as Reported by: TAMARA CUEVAS on 03/25/19 09 Apixaban (Eliquis) 5 Mg Tablet, 5 MG PO BID, (Reported) Entered as Reported by: TAMARA CUEVAS on 03/25/19 0924 Atorvastatin Calcium (Atorvastatin Calcium) 40 Mg Tablet, 40 MG PO HS, (Reported) Entered as Reported by: TAMARA CUEVAS on 03/25/19 0819 C,E,Zinc,Copper 11/Yxaxd6h/Lut (Ocuvite Adult 50 Plus Softgel) 1 Each Capsule, 1 CAP PO HS, (Reported) Entered as Reported by: TAMARA CUEVAS on 03/25/19 0911 Cetirizine HCl (Cetirizine HCl) 10 Mg Tablet, 10 MG PO DAILY, (Reported) Entered as Reported by: TAMARA CUEVAS on 03/25/19 0909 Digoxin (Digoxin) 250 Mcg Tablet, 375 MCG PO DAILY, (Reported) Entered as Reported by: ADAMARIS ZARATE on 04/30/19 1125 Diltiazem HCl (Diltiazem 24Hr ER) 180 Mg Cap.er.24h, 360 MG PO DAILY Prescribed by: NICOLA ORTIZ on 04/26/21 1014 Fluticasone Propionate (Fluticasone Propionate) 16 Gm [place].susp, 2 SPRAYS NS DAILY PRN for CONGESTION, (Reported) Entered as Reported by: TAMARA CUEVAS on 03/25/19818 Methimazole (Methimazole) 5 Mg Tablet, 2.5 MG PO DAILY, (Reported) Entered as Reported by: TAMARA CUEVAS on 03/25/19818 Metoprolol Succinate (Metoprolol Succinate) 100 Mg Tab.er.24h, 200 MG PO DAILY, (Reported) Entered as Reported by: SHANNA MAY on 04/22/21 1407 Vitamin B Complex (Vitamin B Complex) 1 Each Capsule, 1 CAP PO HS, (Reported) Entered as Reported by: TAMARA CUEVAS on 03/25/19 0909 Review of Systems Review of Systems Constitutional: no symptoms reported Eyes: No Symptoms Reported Ears: No Symptoms Reported Nose: no symptoms reported Mouth: pain Throat: no symptoms reported Respiratory: no symptoms reported Musculoskeletal: no symptoms reported Past Qtouabq-Vlouhz-Xpuegz Hx Immunizations Up To Date Tetanus Booster (TDap): Unknown First/Initial COVID19 Vaccinat: 2020 Second COVID19 Vaccination Subhash: 2020 Seasonal Allergies Seasonal Allergies: No Past Medical History Surgeries: Yes (BLADDER SURGERY, thyroid biopsy) Bladder Surgery Respiratory: Yes (Chronic hypoxia) Asthma, Pneumonia, Sleep Apnea Currently Using CPAP: Yes Cardiac: Yes Atrial Fibrillation Neurological: No Reproductive Disorders: No Sexually Transmitted Disease: No Genitourinary: Yes (bladder cancer) Gastrointestinal: No Musculoskeletal: Yes Degenerate Disk Disease, Arthritis Endocrine: No HEENT: No Cancer: Yes Bladder What Type of Treatment Did You: Surgical Intervention Psychosocial: No Integumentary: No Blood Disorders: No Family Medical History FH: emphysema 19 FATHER Prostatitis 19 FATHER Heart Disease, Cancer, Lung Disease, Stroke Physical Exam Vital Signs Vital Signs - First Documented 10/09/21 17:09 Temp 36.9 Pulse 84 Resp 22 B/P (MAP) 132/62 (85) Pulse Ox 97 O2 Delivery Nasal Cannula O2 Flow Rate 8.00 Height, Weight, BMI Height: 6'0.00" Weight: 325lbs. 0.0oz. 147.843195bw; 49.00 BMI Method:Stated General Appearance: WD/WN, no apparent distress Mouth/Throat: other (Widespread dental decay. Tenderness to palpation to the right upper dentition with multiple old fractured teeth. 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 There is no evidence or suspicion of periapical abscess, facial cellulitis or other emergent condition. We will start the patient on antibiotics and we discussed very detailed home care and return precautions. Impression Primary Impression: Dental caries Disposition: HOME, SELF-CARE Condition: Stable Departure-Patient Inst. Decision time for Depature: 17:37 Referrals: VICK FRANK MD (PCP/Family) Primary Care Physician Patient Instructions: Fractured Tooth (DC), Dental Pain Add. Discharge Instructions: Please follow-up with your dentist as we discussed. All discharge instructions reviewed with patient and/or family. Voiced understanding. Scripts Chlorhexidine Gluconate (Peridex) 0.12 % Mouthwash 15 ML MM TID for 10 Days, #473 ML Prov: RAJEEV DHILLON 10/09/21 Amoxicillin (Amoxicillin) 500 Mg Tablet 500 MG PO TID for 10 Days, #30 TAB Prov: RAJEEV DHILLON 10/09/21 RAJEEV DHILLON Oct 09, 2021 17:35
[2021-10-09] MEDS ORDERED: CHLO473M4 MM (17:38)
[2021-10-09] MEDS ORDERED: AMOX500T2 PO (17:38)
[2021-10-09] MEDS ORDERED: AMOXICILLIN 500 MG (POLYMOX) CAP PO STA (17:39)
[2021-10-09 17:56] VITALS: BP 114/75
== END 2021-10-09 17:56 | disposition home or self-care (01) ==
LOC: EDUNIT# 17:01 → ER 17:05
DX: K02.9 Dental caries, unspecified (principal); G47.30 Sleep apnea, unspecified; Z99.89 Dependence on other enabling machines and devices
CPT/HCPCS: 99283

== ENCOUNTER → 2021-10-28 | Outpatient (CLI) | payer MEDICARE ==
[~2021-10-28] MED LIST changes: +AMOX500T2 PO; +CHLO473M4 MM; +RT-ALBUTEROL SULF 2.5 MG/3 ML PRE-MIX VIAL INH ONE
== END ==
LOC: RT 12:52
PROVIDERS: ATTEND Internal Medicine Critical Care Medicine
DX: J44.9 Chronic obstructive pulmonary disease, unspecified (principal); G47.33 Obstructive sleep apnea (adult) (pediatric); J96.21 Acute and chronic respiratory failure with hypoxia
CPT/HCPCS: 94060; 94621; 94726; 94729

== ENCOUNTER → 2021-10-28 | Outpatient (CLI) | payer MEDICARE ==
[~2021-10-28] MED LIST changes: -RT-ALBUTEROL SULF 2.5 MG/3 ML PRE-MIX VIAL INH ONE
== END ==
LOC: CARD 12:56
PROVIDERS: ATTEND Internal Medicine Cardiovascular Disease
DX: R00.1 Bradycardia, unspecified (principal)
CPT/HCPCS: 93225; 93226

== ENCOUNTER → 2021-10-29 | Outpatient (CLI) | payer MEDICARE | LOC: LAB 15:26 | PROVIDERS: ATTEND Internal Medicine Endocrinology, Diabetes & Metabolism | DX: E05.90 Thyrotoxicosis, unspecified without thyrotoxic crisis or storm (principal); E04.2 Nontoxic multinodular goiter ==

== ENCOUNTER → 2021-10-29 | Outpatient (CLI) | payer MEDICARE ==
[2021-10-29 16:27] LABS: CALCIUM 9.9 MG/DL (8.5-10.1); CREATININE SERUM 0.88 MG/DL (0.60-1.30); MAGNESIUM 1.8 MG/DL (1.6-2.4); POTASSIUM 4.2 MMOL/L (3.6-5.0)
[2021-10-29 16:48] LABS: FREE T4 (FREE THYROXINE) 0.81 NG/DL (0.70-1.48)
== END ==
LOC: LAB 15:23
PROVIDERS: ATTEND Internal Medicine Cardiovascular Disease
DX: R00.1 Bradycardia, unspecified (principal)
CPT/HCPCS: 36415; 80048; 80162; 83735; 84439; 84443; 84480

== ENCOUNTER → 2022-02-25 | Outpatient (CLI) | payer MEDICARE ==
[~2022-02-25] MED LIST changes: +ALBU8.5H6 IH; +LIDOCAINE 1% INJ 30 ML (XYLOCAINE) VIAL INJ ONE; +LIDOCAINE 1% INJ 30 ML (XYLOCAINE) VIAL ONE
--- NOTE | 2022-02-25 13:52 | Diagnostic Imaging Report ---
INDICATION: Right lobe thyroid nodule. Patient presents for ultrasound-guided fine-needle aspiration and Rotex biopsy. Patient brought to the procedure room and placed on the table in supine position. Ultrasound imaging of the right neck was performed to evaluate appropriate entry site. Right neck was prepped and draped in the usual sterile fashion. Small amount of 1% lidocaine was utilized for local anesthesia. Total of 4 passes were made into the mixed solid and cystic mass right lobe of thyroid utilizing 25-gauge needles and fine-needle aspiration technique. A 2nd pass was made with a Rotex needle and Rotex biopsy was performed. Hemostasis was obtained. Patient tolerated procedure well. IMPRESSION: Successful ultrasound-guided fine-needle aspiration and Rotex biopsy right lobe thyroid nodule. Pathology results are currently pending. Dictated by: Dictated on workstation # [id number]
--- NOTE | 2022-02-25 13:55 | Diagnostic Imaging Report ---
INDICATION: Left lobe thyroid nodule. Patient presents for ultrasound-guided fine-needle aspiration and biopsy. FINDINGS: Left neck was prepped and draped in the usual sterile fashion. Small amount of 1% lidocaine was utilized for local anesthesia. A total of four passes were made into the mixed solid and cystic mass in the left lobe of the thyroid utilizing 25-gauge needles and fine-needle aspiration technique. A single pass was made with a Rotex needle and Rotex biopsy was performed. Hemostasis was obtained. Patient tolerated the procedure well and left the department in stable condition. IMPRESSION: Successful ultrasound-guided fine-needle aspiration and Rotex biopsy of the dominant mixed solid and cystic mass in the left lobe of the thyroid. Pathology results are currently pending. Dictated by: Dictated on workstation # [id number]
== END ==
LOC: RAD 11:01
PROVIDERS: ATTEND Internal Medicine Endocrinology, Diabetes & Metabolism
DX: E04.2 Nontoxic multinodular goiter (principal)
CPT/HCPCS: 10005; 10006

== ENCOUNTER → 2022-06-16 | Outpatient (CLI) | payer MEDICARE ==
[~2022-06-16] MED LIST changes: -LIDOCAINE 1% INJ 30 ML (XYLOCAINE) VIAL INJ ONE; -LIDOCAINE 1% INJ 30 ML (XYLOCAINE) VIAL ONE
[2022-06-16 16:19] LABS: HEMATOCRIT 45 % (40-54); HEMOGLOBIN 13.8 g/dL (13.3-17.7); MEAN CORPUSCULAR HEMOGLOBIN 29 pg (25-34); MEAN CORPUSCULAR HGB CONC 31 g/dL (32-36); MEAN CORPUSCULAR VOLUME 93 fL (80-99); PLATELET COUNT 283 10^3/uL (130-400); WHITE BLOOD COUNT 9.6 10^3/uL (4.3-11.0)
[2022-06-16 16:23] LABS: POTASSIUM 4.5 MMOL/L (3.6-5.0)
[2022-06-16 16:29] LABS: CREATININE SERUM 0.82 MG/DL (0.60-1.30)
[2022-06-16 16:31] LABS: MAGNESIUM 1.9 MG/DL (1.6-2.4)
== END ==
LOC: LAB 15:58
PROVIDERS: ATTEND Nurse Practitioner Family
DX: G47.33 Obstructive sleep apnea (adult) (pediatric) (principal); I48.21 Permanent atrial fibrillation; I42.0 Dilated cardiomyopathy; I50.22 Chronic systolic (congestive) heart failure; I51.9 Heart disease, unspecified; I27.21 Secondary pulmonary arterial hypertension; Z79.01 Long term (current) use of anticoagulants
CPT/HCPCS: 36415; 80048; 80162; 83735; 85027

== ENCOUNTER 2022-07-21 18:46 | Emergency (ER) | payer MEDICARE ==
[~2022-07-21] VITALS: Ht 182.9 cm; Wt 153.0 kg
[2022-07-21 19:10] VITALS: BP 125/69
[2022-07-21] MEDS ORDERED: DOXY100T31 PO (19:24)
[2022-07-21] MEDS ORDERED: CEPH500T PO (19:24)
--- NOTE | 2022-07-21 19:25 | ED Integumentary General ---
General Stated Complaint: STUNG/BITE ON HIP Source: patient Exam Limitations: no limitations (MARIPOSA ORTEGA) History of Present Illness Date Seen by Provider: Jul 21, 2022 Time Seen by Provider: 19:21 Initial Comments Patient is a 67-year-old male who presents to ED with redness and swelling to his left buttock. States he felt a bite yesterday. Patient noted a blister. The half dollar blister ruptured. Report applying a topical ointment triamcinolone without much improvement. He is unclear if he was bitten by a brown recluse spider or bug of some sort. Denies fever, chills, nausea, vomiting, diarrhea. Patient is diabetic. He reports some pain and discomfort while sitting. Denies of any drainage. (MARIPOSA ORTEGA) Allergies and Home Medications Allergies Coded Allergies: clindamycin (Verified Allergy, Unknown, 04/25/16) Uncoded Allergies: CEYANE PEPPER (Allergy, Unknown, 04/25/16) ENDOMETHICIN (Allergy, Unknown, 04/25/16) Patient Home Medication List Home Medication List Reviewed: Yes (MARIPOSA ORTEGA) Albuterol Sulfate (Ventolin Hfa) 1 Puff Puff, 2 PUFF IH QID PRN for SHORTNESS OF BREATH, (Reported) Entered as Reported by: TAMARA CUEVAS on 03/25/19 0909 Amoxicillin (Amoxicillin) 500 Mg Tablet, 500 MG PO TID Prescribed by: Travis Chinchilla on 10/09/21 1738 Apixaban (Eliquis) 5 Mg Tablet, 5 MG PO BID, (Reported) Entered as Reported by: TAMARA CUEVAS on 03/25/19 0924 Atorvastatin Calcium (Atorvastatin Calcium) 40 Mg Tablet, 40 MG PO HS, (Reported) Entered as Reported by: TAMARA CUEVAS on 03/25/19 0819 C,E,Zinc,Copper 11/Juyfm5a/Lut (Ocuvite Adult 50 Plus Softgel) 1 Each Capsule, 1 CAP PO HS, (Reported) Entered as Reported by: TAMARA CUEVAS on 03/25/19 0911 Cephalexin (Cephalexin) 500 Mg Tablet, 500 MG PO QID Prescribed by: JUNE PAL on 07/21/22 192 Cetirizine HCl (Cetirizine HCl) 10 Mg Tablet, 10 MG PO DAILY, (Reported) Entered as Reported by: TAMARA CUEVAS on 03/25/19 0909 Chlorhexidine Gluconate (Peridex) 0.12 % Mouthwash, 15 ML MM TID Prescribed by: Travis Chinchilla on 10/09/21 1738 Digoxin (Digoxin) 250 Mcg Tablet, 375 MCG PO DAILY, (Reported) Entered as Reported by: ADAMARIS ZARATE on 04/30/19 1125 Diltiazem HCl (Diltiazem 24Hr ER) 180 Mg Cap.er.24h, 360 MG PO DAILY Prescribed by: NICOLA ORTIZ on 04/26/21 1014 Fluticasone Propionate (Fluticasone Propionate) 16 Gm [place].susp, 2 SPRAYS NS DAILY PRN for CONGESTION, (Reported) Entered as Reported by: TAMARA CUEVAS on 03/25/19 0819 Methimazole (Methimazole) 5 Mg Tablet, 2.5 MG PO DAILY, (Reported) Entered as Reported by: TAMARA CUEVAS on 03/25/19 0819 Metoprolol Succinate (Metoprolol Succinate) 100 Mg Tab.er.24h, 200 MG PO DAILY, (Reported) Entered as Reported by: SHANNA MAY on 04/22/21 1407 Vitamin B Complex (Vitamin B Complex) 1 Each Capsule, 1 CAP PO HS, (Reported) Entered as Reported by: TAMARA CUEVAS on 03/25/19 0909 Discontinued Medications Doxycycline Monohydrate (Doxycycline Monohydrate) 100 Mg Tablet, 100 MG PO BID Prescribed by: JUNE PAL on 07/21/221923 Review of Systems Review of Systems Constitutional: No chills, No diaphoresis, No fever, No malaise, No weakness EENTM: No ear pain, No blurred vision, No double vision, No hoarseness, No mouth pain Respiratory: No cough, No dyspnea on exertion Cardiovascular: No chest pain Gastrointestinal: No abdominal pain, No diarrhea, No nausea, No vomiting Genitourinary: No decreased output, No discharge Musculoskeletal: No back pain, No joint pain Skin: change in color (MARIPOSA ORTEGA) All Other Systems Reviewed Negative Unless Noted: Yes (MARIPOSA ORTEGA) Past Ofkbvqm-Owvglp-Lvniwm Hx Immunizations Up To Date Tetanus Booster (TDap): Unknown First/Initial COVID19 Vaccinat: 2020 Second COVID19 Vaccination Subhash: 2020 Third COVID19 Vaccination Date: 2020 (MARIPOSA ORTEGA) Seasonal Allergies Seasonal Allergies: No (MARIPOSA ORTEGA) Past Medical History Surgeries: Yes (BLADDER SURGERY, thyroid biopsy) Bladder Surgery Respiratory: Yes (Chronic hypoxia) Asthma, Pneumonia, Sleep Apnea Currently Using CPAP: Yes Cardiac: Yes Atrial Fibrillation Neurological: No Reproductive Disorders: No Sexually Transmitted Disease: No Genitourinary: Yes (bladder cancer) Gastrointestinal: No Musculoskeletal: Yes Degenerate Disk Disease, Arthritis Endocrine: No HEENT: No Cancer: Yes Bladder What Type of Treatment Did You: Surgical Intervention Psychosocial: No Integumentary: No Blood Disorders: No (MARIPOSA ORTEGA) Family Medical History FH: emphysema 19 FATHER Prostatitis 19 FATHER Heart Disease, Cancer, Lung Disease, Stroke (MARIPOSA ORTEGA) Physical Exam Vital Signs Vital Signs - First Documented 07/21/22 19:10 Temp 36.8 Pulse 62 Resp 18 B/P (MAP) 125/69 (87) Pulse Ox 96 O2 Delivery Nasal Cannula O2 Flow Rate 2.00 (LILIA DYER DO) Vital Signs Capillary Refill : (MARIPOSA ORTEGA) General Appearance: WD/WN, no apparent distress HEENT: PERRL/EOMI, normal ENT inspection, TMs normal, pharynx normal Neck: non-tender, full range of motion, supple Cardiovascular: regular rate, rhythm, no edema, no gallop, no JVD Respiratory: chest non-tender, lungs clear, normal breath sounds, no respiratory distress, no accessory muscle use Gastrointestinal: normal bowel sounds, non tender, soft, no organomegaly Back: normal inspection, no CVA tenderness Extremities: normal range of motion, normal inspection, no pedal edema Skin: other (Half dollar ruptured blister. No necrotic tissue. Baseball size erythema and warmth induration. No function of mass. No tenderness to palpate.) (MARIPOSA ORTEGA) Progress/Results/Core Measures Results/Orders Vital Signs/I&O 07/21/22 19:10 Temp 36.8 Pulse 62 Resp 18 B/P (MAP) 125/69 (87) Pulse Ox 96 O2 Delivery Nasal Cannula O2 Flow Rate 2.00 (LILIA DYER DO) Departure Communication (PCP) Reviewed previous ER visits, H&P, lab testing. History of diabetes. Patient has redness and swelling to the left buttock. Possible bug bite such as spider. Patient states he felt the bite. Patient report immediate blister that rupture with surrounding redness and pain. On exam does have erythema. No fluctuant mass. Half dollar blister that rupture. No necrotic tissue. Baseball size erythema. Slight induration. Concerning for developing infection vs Potential local reaction. Discussed starting Keflex due to the concern for cellulitis. Denies history of MRSA. Discussed with patient that this may develop into a abscess. Do not feel this is needing incision and drainage at this time. May require debridement if any necrotic tissue. This may require incision and drainage at soem point, . If increasing pain, redness, swelling or fever to return back to the ED. recommend following up in 2 days for recheck. (MARIPOSA ORTEGA) Impression Primary Impression: Cellulitis Disposition: 01 HOME, SELF-CARE Condition: Stable Departure-Patient Inst. Decision time for Depature: 19:23 (MARIPOSA ORTEGA) Referrals: MERRY LOAIZA DAVID F MD (PCP/Family) Primary Care Physician Patient Instructions: Cellulitis (Skin Infection), Adult ED Add. Discharge Instructions: Recommend recheck in 2 days. If increased redness, swelling to return back to ED. Scripts Cephalexin (Cephalexin) 500 Mg Tablet 500 MG PO QID for 7 Days, #28 TAB Prov: MARIPOSA ORTEGA 07/21/22 ATTENDING PHYSICIAN NOTE: I WAS PHYSICALLY PRESENT ER PHYSICIAN, BUT I WAS NOT INVOLVED IN ANY DECISION MAKING OR ANY CARE OF THIS PATIENT, AND I AM NOT COLLABORATING PHYSICIAN. (LILIA DYER DO) MARIPOSA ORTEGA Jul 21, 2022 19:25 LILIA DYER DO Jul 23, 2022 06:10
[2022-07-21] MEDS ORDERED: CEPHALEXIN 250 MG (KEFLEX) CAP PO STA (19:33)
[2022-07-21] MEDS ORDERED: CEPHALEXIN 250 MG (KEFLEX) CAP PO ONE (19:35)
== END 2022-07-21 19:40 | disposition home or self-care (01) ==
LOC: EDUNIT# 18:46 → ER 18:48
DX: L03.317 Cellulitis of buttock (principal); G47.30 Sleep apnea, unspecified; Z99.89 Dependence on other enabling machines and devices; Z88.1 Allergy status to other antibiotic agents
CPT/HCPCS: 99281

== ENCOUNTER → 2022-09-30 | Outpatient (CLI) | payer MEDICARE ==
[~2022-09-30] MED LIST changes: +CEPH500T PO; +DOXY100T31 PO
[2022-09-30 13:31] LABS: TRIGLYCERIDES 173 MG/DL (<150); VLDL CHOLESTEROL 35 MG/DL (5-40)
[2022-09-30 13:36] LABS: CHOLESTEROL 143 MG/DL (< 200)
[2022-09-30 13:37] LABS: HDL CHOLESTEROL 41 MG/DL (40-60)
== END ==
LOC: LAB 13:03
PROVIDERS: ATTEND Family Medicine
DX: E11.69 Type 2 diabetes mellitus with other specified complication (principal)
CPT/HCPCS: 36415; 80061